=== PATIENT | female | born 1945 | race Caucasian/White ===

== ENCOUNTER → 2017-09-17 11:53 | Outpatient (CLI) | payer MEDICARE, SELFPAY ==
[2017-09-17 14:36] LABS: Hematocrit 41.2 % (37-47); Hemoglobin 14.1 g/dl (12.0-15.0); Mean Corp Hgb Conc 34.2 g/gl (32-36); Mean Corpuscular Hgb 33.2 pg (27.0-32.0); Mean Corpuscular Volume 96.9 fL (81-99); Mean Platelet Vol. 9.9 fl (6.2-12.0); Platelet Count 194 K/mm3 (150-450); RBC Distribution Width CV 12.5 % (11.6-14.6); RBC Distribution Width SD 43.2 fl (35.1-43.9); Red Blood Count 4.25 M/mm3 (4.2-5.4); White Blood Count 6.9 K/mm3 (4.4-11.0)
[2017-09-17 14:41] LABS: Scan Indicated on CBC? Y/N NO
[2017-09-17 14:46] LABS: Ferritin 12 ng/mL (8-252); Iron 65 ug/dL (50-170)
== END ==
PROVIDERS: Family Provider Family Medicine; PCP Family Medicine; Visit Provider Family Medicine
DX: D64.9 Anemia, unspecified (principal); E55.9 Vitamin D deficiency, unspecified
CPT/HCPCS: 36415; 82306; 82728; 83540; 85027

== ENCOUNTER → 2017-11-28 11:02 | Outpatient (CLI) | payer MEDICARE, SELFPAY | PROVIDERS: Family Provider Family Medicine; PCP Family Medicine; Visit Provider Family Medicine | DX: R30.0 Dysuria (principal) | CPT/HCPCS: 87077; 87086; 87088; 87186 ==

== ENCOUNTER → 2018-03-18 11:33 | Outpatient (CLI) | payer MEDICARE, SELFPAY ==
[2018-03-18 14:10] LABS: Hematocrit 43.4 % (37-47); Hemoglobin 14.8 g/dl (12.0-15.0); Mean Corp Hgb Conc 34.1 g/gl (32-36); Mean Corpuscular Hgb 33.3 pg (27.0-32.0); Mean Corpuscular Volume 97.7 fL (81-99); Mean Platelet Vol. 9.8 fl (6.2-12.0); Platelet Count 195 K/mm3 (150-450); RBC Distribution Width CV 12.7 % (11.6-14.6); RBC Distribution Width SD 44.8 fl (35.1-43.9); Red Blood Count 4.44 M/mm3 (4.2-5.4); White Blood Count 6.7 K/mm3 (4.4-11.0)
[2018-03-18 14:13] LABS: Scan Indicated on CBC? Y/N NO
[2018-03-18 14:35] LABS: ALB/GLOB Ratio 1.2 RATIO (0.9-2.4); AST(SGOT) 14 U/L (15-37); Alanine Aminotransfer ALT/SGPT 17 U/L (13-56); Albumin, Serum 4.1 g/dL (3.2-5.0); Alkaline Phosphatase 57 U/L (45-117); Anion Gap 10 (5-15); BUN 11 mg/dL (7-18); BUN/Creat Ratio 14.4 RATIO (10-20); Calcium,Total 9.1 mg/dL (8.5-10.1); Chloride 105 mmol/L (98-107); Creatinine, Serum 0.76 mg/dL (0.55-1.02); EST Glomerular Filtration Rate 79 mL/min (>60); Est Glom Filt Rate - Afr Amer 95 mL/min (>60); Globulin 3.4 g/dL (2.2-4.2); Glucose 69 mg/dL (74-106); Iron 147 ug/dL (50-170); Potassium 4.2 mmol/L (3.5-5.1); Protein, Total 7.5 g/dL (6.4-8.2); Sodium Level 144 mmol/L (136-145)
== END ==
PROVIDERS: Family Provider Family Medicine; PCP Family Medicine; Visit Provider Family Medicine
DX: D64.9 Anemia, unspecified (principal); K21.9 Gastro-esophageal reflux disease without esophagitis
CPT/HCPCS: 36415; 80053; 83540; 85027

== ENCOUNTER → 2018-05-20 11:27 | Outpatient (CLI) | payer MEDICARE, SELFPAY ==
--- NOTE | 2018-05-20 11:32 | RAD_ITS ---
STUDY: X-RAY - ABDOMEN/PELVIS REASON FOR EXAM: Female, 72 years old. Pain. TECHNIQUE: AP supine and upright views of the abdomen and pelvis. COMPARISON: CTA of the abdomen, December 06, 2016. FINDINGS: Normal visualized lung bases. There is a large retrocardiac hiatal hernia. There is a nonspecific bowel gas pattern with air and feces scattered throughout a nondistended colon. There is no small bowel dilatation or evidence of obstruction. There is no demonstrated free abdominal air. The visualized liver, spleen and kidneys are grossly normal in size and morphology. Cholecystectomy clips are seen in the right upper quadrant. Normal soft tissue structures. There is scoliosis and degenerative changes of the lumbar spine. There are bilateral artificial hips. RAD/Abd Inc Decub and/or Erect IMPRESSION: 1. Large hiatal hernia. 2. No other evidence of acute intra-abdominal process. 3. Degenerative changes and scoliosis lumbar spine. 4. Bilateral artificial hips. Electronically Signed: Omari Pemberton DO at 17:07 EDT Tel [phone], Service support ,
[2018-05-20 14:02] LABS: Erythrocyte Sedimentation Rate 4 mm/hr (0-30)
[2018-05-20 14:11] LABS: Absolute Lymphocyte Count 1.17 X10^3/ul (0.83-4.51); Absolute Neutrophil Count 4.6 X10^3/uL (2.0-7.7); Basophil# 0.01 X10^3/uL; Basophil% 0.2 % (0-1); Eosinophil# 0.16 X10^3/uL; Eosinophils% 2.5 % (0-5); Hematocrit 42.7 % (37-47); Hemoglobin 14.4 g/dl (12.0-15.0); Lymphocyte # 1.17 X10^3/ul (4.0); Lymphocyte % 18.3 % (19-41); Mean Corp Hgb Conc 33.7 g/gl (32-36); Mean Corpuscular Hgb 32.2 pg (27.0-32.0); Mean Corpuscular Volume 95.5 fL (81-99); Mean Platelet Vol. 9.8 fl (6.2-12.0); Monocyte% 6.3 % (0-10); Neutrophil # 4.64 X10^3/uL (2.7-7.7); Neutrophil % 72.5 % (47-70); Platelet Count 198 K/mm3 (150-450); Red Blood Count 4.47 M/mm3 (4.2-5.4); White Blood Count 6.4 K/mm3 (4.4-11.0)
[2018-05-20 14:20] LABS: POSITIVE COUNT NO; POSITIVE DIFFERENTIAL NO; POSITIVE MORPHOLOGY NO
[2018-05-20 14:41] LABS: ALB/GLOB Ratio 1.3 RATIO (0.9-2.4); AST(SGOT) 12 U/L (15-37); Alanine Aminotransfer ALT/SGPT 16 U/L (13-56); Albumin, Serum 4.1 g/dL (3.2-5.0); Alkaline Phosphatase 61 U/L (45-117); Anion Gap 10 (5-15); BUN 9 mg/dL (7-18); BUN/Creat Ratio 12.7 RATIO (10-20); Chloride 104 mmol/L (98-107); Creatinine, Serum 0.71 mg/dL (0.55-1.02); EST Glomerular Filtration Rate 86 mL/min (>60); Est Glom Filt Rate - Afr Amer 104 mL/min (>60); Globulin 3.2 g/dL (2.2-4.2); Glucose 83 mg/dL (74-106); Potassium 3.7 mmol/L (3.5-5.1); Protein, Total 7.3 g/dL (6.4-8.2); Sodium Level 141 mmol/L (136-145); Thyroid Stim Hormone (TSH) 0.83 uIU/mL (0.358-3.74)
== END ==
PROVIDERS: Family Provider Family Medicine; PCP Family Medicine; Referring Provider Family Medicine; Visit Provider Family Medicine
DX: R42 Dizziness and giddiness (principal); N39.0 Urinary tract infection, site not specified; R10.9 Unspecified abdominal pain; R53.83 Other fatigue
CPT/HCPCS: 36415; 74019; 80053; 84443; 85025; 85652; 87086

== ENCOUNTER → 2018-07-23 11:45 | Outpatient (CLI) | payer MEDICARE, SELFPAY ==
[2017-02-04 23:01] VITALS: BMI 37.0
[2018-07-23 18:28] LABS: Mucous, Urine 0 SEEN /hpf (<or=2+); Red Blood Cells-Urine 0 SEEN /hpf (0-5)
[2018-07-23 18:45] LABS: Color, Urine Yellow (Yellow); Glucose, Dipstick Normal (Normal); Ketone-Dipstick Negative (Negative); Leukocyte Esterase-Dipstick 100 /ul (Negative); Nitrite-Dipstick Negative (Negative); Occult Blood-Urine 10 /ul (Negative); Protein-Dipstick Negative (Negative); Specific Gravity, Urine 1.005 (1.002-1.030); Urine Bilirubin Dipstick Negative (Negative); Urine Clarity Clear (Clear); Urine Urobilinogen Normal (Normal)
[2018-07-23 18:55] LABS: White Blood Cells 0-5 SEEN /hpf (0-5)
[2018-07-23 18:56] LABS: Squamous Epithelial Cells - UA 0-5 SEEN /hpf (5-10)
[2018-07-23 18:57] LABS: Bacteria 3+ /hpf (None Seen)
== END ==
PROVIDERS: Family Provider Family Medicine; PCP Family Medicine; Referring Provider Nurse Practitioner Adult Health; Visit Provider Nurse Practitioner Adult Health
DX: N39.0 Urinary tract infection, site not specified (principal); R32 Unspecified urinary incontinence
CPT/HCPCS: 81001; 87077; 87086; 87088; 87186

== ENCOUNTER → 2018-10-03 13:25 | Outpatient (CLI) | payer MEDICARE, SELFPAY ==
[2018-10-03 10:32] VITALS: BMI 37.0
== END ==
PROVIDERS: Family Provider Family Medicine; PCP Family Medicine; Referring Provider Nurse Practitioner Women's Health; Visit Provider Nurse Practitioner Women's Health
DX: R35.0 Frequency of micturition (principal)
CPT/HCPCS: 87077; 87086; 87088; 87186

== ENCOUNTER 2018-10-23 11:26 | Observation (INO) | payer MEDICARE, SELFPAY ==
[2018-10-03 10:32] VITALS: BMI 37.0
[2018-10-23 11:36] VITALS: BP 136/72; PULSE 58; PULSE 61; RESP 17; TEMP 36.4; O2SAT 97; O2SAT 98; BMI 36.3
--- NOTE | 2018-10-23 11:46 | RAD_ITS ---
STUDY: X-RAY - RIGHT KNEE REASON FOR EXAM: Pain after feeling a pop this morning. TECHNIQUE: 3 view(s) of the knee. COMPARISON: None. FINDINGS: Normal visualized distal femur. Normal visualized proximal tibia and fibula. Normal proximal tibiofibular articulation. There is mild joint space narrowing of the medial femorotibial compartment. Normal lateral femorotibial compartment. There is mild joint space narrowing of the patellofemoral articulation. There is a small joint effusion. There is chondrocalcinosis in the menisci. RAD/Knee 3 Views IMPRESSION: Mild arthrosis of the medial femorotibial and patellofemoral compartments. Small joint effusion. Chondrocalcinosis. Electronically Signed: Edmond Villela MD at 12:31 EST Tel , Service support ,
[2018-10-23] MEDS: HYDROcodone Bitartrate/Apap 5/325 Tablet PO (14:15)
--- NOTE | 2018-10-23 14:55 | ED.DCSUM_ITS ---
- ER Visit Summary Date of Service: 10/23/18 Chief Complaint: Right knee injury History of Present Illness: The patient is a 73 F presents to the emergency department with right knee injury. Patient states over the past 2 weeks, she had a dull ache in the lateral aspect of her right knee she was going down her one stair in her garage. Her knee popped. Since then, he had pain trying to extend and feels like it is getting stuck. She had a difficult time bearing weight. She did not fall to the ground. She did not strike her head. Patient does have a history of DVT and is on Coumadin. She had bilateral hip replacements in the past. Physical Examination: Examination is relatively unremarkable. Patient does guard against full extension of the knee, but there is no evidence of patellar tendon disruption. There is no erythema or edema. Pulses are normal. She does have pain over the lateral aspect of the tibial plateau. Test Results: [] Emergency Department Course and Treatment: Clinically, the patient's mechanism does seem most consistent with a lateral meniscus injury. She was placed in a knee immobilizer which improved her pain. She was also given oral analgesics. X-rays showed no evidence of acute fracture. Patient is very concerned that she is going to be unable to care for herself at home. She was seen and evaluated by case management. She was seen by physical therapy and Occupational Therapy. The patient cannot maneuver safely with a walker. She is still having persistent pain and cannot get around. After evaluation, it was thought that she would best be served with observation with plan for skilled rehab placement. Patient was discussed with the hospitalist. Treatment Plan: [] Disposition: Observation Impression: 1. Right knee sprain with inability to ambulate This note was generated with [employer] ([employer]) Limitedation software. It may contain incorrect words, spelling, and punctuation that were not noted in review of the chart prior to signing ED Disposition - Plan for ED Patient: Referrals: True Vazquez MD [Primary Care Provider] -
--- NOTE | 2018-10-23 16:20 | ED.RN ---
PT ASSISTED TO [facility]. 2-3 STAFF ASSIST. PT C/O INCREASED WEAKNESS IN LEFT LEG AND FEELING LIKE IT IS GOING TO GO OUT. PT ASSISTED BACK INTO BED WITH THIS NURSE AND 2 PHYSICAL THERAPISTS
[2018-10-23 16:24] VITALS: BMI 36.3
[2018-10-23 16:45] VITALS: BP 140/74; PULSE 83; RESP 22; O2SAT 97
[2018-10-23] MEDS: Ondansetron 4 MG/2 ML Vial IV ×2 (16:46→22:25)
[2018-10-23] MEDS: Morphine 4 MG/ML Syringe IV (16:48)
[2018-10-23 16:50] LABS: Absolute Lymphocyte Count 1.62 X10^3/ul (0.83-4.51); Absolute Neutrophil Count 5.7 X10^3/uL (2.0-7.7); Basophil# 0.01 X10^3/uL; Basophil% 0.1 % (0-1); Eosinophil# 0.25 X10^3/uL; Eosinophils% 3.1 % (0-5); Hematocrit 40.6 % (37-47); Hemoglobin 13.2 g/dl (12.0-15.0); Lymphocyte # 1.62 X10^3/ul (4.0); Lymphocyte % 20.3 % (19-41); Mean Corp Hgb Conc 32.5 g/gl (32-36); Mean Corpuscular Hgb 30.8 pg (27.0-32.0); Mean Corpuscular Volume 94.6 fL (81-99); Mean Platelet Vol. 9.7 fl (6.2-12.0); Monocyte# 0.44 X10^3/uL; Monocyte% 5.5 % (0-10); Neutrophil # 5.67 X10^3/uL (2.7-7.7); Neutrophil % 70.9 % (47-70); Platelet Count 209 K/mm3 (150-450); RBC Distribution Width CV 13.1 % (11.6-14.6); Red Blood Count 4.29 M/mm3 (4.2-5.4)
--- NOTE | 2018-10-23 16:50 | NURSING ---
Estephania DANIELS INTRACTABLE KNEE PAIN, INABILITY TO AMBULATE
[2018-10-23 16:54] LABS: Anion Gap 9 (5-15); BUN 12 mg/dL (7-18); BUN/Creat Ratio 15.6 RATIO (10-20); Calcium,Total 8.7 mg/dL (8.5-10.1); Chloride 107 mmol/L (98-107); Creatinine, Serum 0.77 mg/dL (0.55-1.02); EST Glomerular Filtration Rate 78 mL/min (>60); Est Glom Filt Rate - Afr Amer 94 mL/min (>60); Estimated Creatinine Clearance 40.21 ml/min; Glucose 107 mg/dL (74-106); POSITIVE COUNT NO; POSITIVE DIFFERENTIAL NO; POSITIVE MORPHOLOGY NO; Potassium 3.5 mmol/L (3.5-5.1); Sodium Level 140 mmol/L (136-145)
[2018-10-23 17:06] LABS: International Normalized Ratio 1.9
--- NOTE | 2018-10-23 17:29 | CM.ED ---
Social Work Note Emergency Department Referred By: Dr. Vargas, Emergency Department Physician Date of Intervention: 10/23/2018 Reason for Referral: difficulty ambulating and pain issues, lives alone; assess for short term and pickle pumper needs Informant: patient herself, Emma Ivey Personal Status Living Arrangements: Lives alone, one floor condo, 2 steps into the home. Education/Literacy: Reports ability to read, write and to understand what is read. No comprehension issues noted. Employment: retired, received social security for self and from ; income is fixed. Insurance: [employer] Medicare PPO Family Dynamics/Relationships: Patient's Lenin has been at [facility] since July 2018 on palliative care hospice. 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 No reports of domestic violence in this relationship. Patient has an adult son in [place], an adult daughter Kiah who lives in [place], and a 19 year old grandson. Patient reports Kiah is disabled, does not drive and has limited ability to physically help patient. The grandson is able to check on patient once or twice a month only. Support System: Limited supports system at this time. Children are supportive but from patient reports are not viable options to help patient at home due to own functioning issues and geographical limitations. Patient has stepchildren also living out of state. No amisha community, friends or neighbors identified that could help patient at home either. Living Will/POAHC: Not addressed Medical History and Functioning: Reason for admission and Relevant Medical History: Patient reports normally to be a vibrant and active person overall. Reports to have some incontinence issues sometimes. Currently, per chart, patient has a right knee sprain with inability to ambulate. Per chart, patient does have a history of DVT and is on Coumadin; bilateral hip replacements in the past. ADLs prior to admission: Reports independent with all functioning prior to admission and injury this date. DME used: Has rollator walker and an older model standard walker. Primary Care Doctor: Dr. Vazquez. Programs/Agencies Involved: JFS: Reports [place]. Senior Care/Assisted Living/Fdc: is at [facility] and is active with [facility]. Medical Alert: Reports intent to get a medical alert for self; interested in [facility] Substance Abuse History and Current Pattern of Use Denies past or present use, abuse, or dependence issues with legal or illicit substances. Mental Health History and Current Cognitive Status Diagnoses: Denies any formal diagnosis of depression, anxiety or other other emotional health issues. Patient endorses stress over the last year and admits to likely having some caregiver burnout when topic broached by social sciences research scientist. Patient reports self to be optimistic in life, denies feeling depressed or having a negative outlook in life, though admits that could see how some caregivers could develop depression and anxiety. Current Stressors: Patient's mother, to whom patient was a caregiver 18 (almost a year ago). Patient's almost on al 4 times since July, placed at [facility] and has been on palliative/hospice care and recently diagnosed with shingles. Patient's daughter is on disability, does not drive, and not really able to pitch in and help patient out. SI or HI: Patient denies any past or present thoughts, plans, intent or attempts. Patient reports it would be the opposite that wants to live as still has too many people counting on the patient; no desire to hurt others. Reports to have a amisha in God and does not believe in taking own life. Treatment History: none reported Medications: None reported Current Cognitive/Mental Status: Alert, oriented to person, place, time, situation. Patient pleasant, friendly, realistic about current functional status. Patient held good eye contact, thought process logical, speech within normal limits. Patient mood appropriate to content, anxious, worried about how would function at home alone without better support and ability to move more independently. Patient tearful when talking about experience as a caregiver, loss of mother, and stress from life changes with . Patient?s Identified Concerns: Worried about going home alone, does not feel equipped to go home with addition of more DME and HHC at this point. Worried about getting to the bathroom in time, bathing self, getting meals, medications, and even getting into the home if discharged from the ED today. Patient expresses worry about being able to transfer on own. Patient reports to have limited income and not enough to hire help. Patient worried about finding out about this illness and does not want to cause more stress. Patient wants to get back to baseline, continue to live in own home and be able to help others; knows must care for own needs if wants to continue to help others in the future. Interventions: Emotional support and reflection offered today. Educated to process to enter SNF (need to get insurance approval), educated that if patient is admitted that no guarantee that insurance will agree to need for SNF level of care. Broached skilled HHC. Discussed meals on wheels, medical alert, and increasing DME at home if needed. patient interested in [facility] medical alert and would appreciate some information on this Collaboration with doctor, RN CM, nursing and therapy staff regarding patient's needs. Message left for Alicia at [facility] to call this conventional mortgage underwriter for referral, after finding out that patient not moving well for nursing or with therapy staff; not recommended to discharge home with current functional status. Handoff report to med/surg floor social sciences research scientist. Plan: Patient to be admitted observation due to pain and mobility issues. Plan to pursue referral to [facility] for short term SNF placement. -HASEEB Lewis, GROUNDSKEEPER PORTER
[2018-10-23 17:34] VITALS: BMI 37.6
[2018-10-23 17:36] VITALS: BP 169/79; PULSE 60; RESP 16; TEMP 37.1; O2SAT 97
--- NOTE | 2018-10-23 17:37 | HP.PCM_ITS ---
Problem List (1) Right knee pain Status: Acute Qualifiers: Chronicity: acute Qualified Code(s): M25.561 - Pain in right knee History of Present Illness Date of Admission: 10/23/18 Chief Complaint: Right knee pain The patient is a 73 year old F was coming in from another room and either turned or stepped on something and then felt a pop in her right knee and then had immediate pain. Patient pain anterior laterally medially and posteriorly. [place] that it was swollen. Had an x-ray that showed no fracture but did show small effusion. Patient just felt too weak to go home and patient being brought in under observation status to facilitate transfer to go to nursing facility. Patient has not had this happen before. Patient did not fall with this episode. [] Past Medical History Past Medical History (Chronic Problems): Chronic Problems (Last Reviewed 10/03/18 @ 10:14 by Savanna Hall) Incontinence (Chronic) Microcytic anemia (Chronic) Pre-syncope (Chronic) Morbid obesity (Chronic) lupus anticoagulant (Chronic) Arthritis (Chronic) DVT (deep venous thrombosis) (Chronic) Asthma (Chronic) Medical History: Medical History (Last Reviewed 10/23/18 @ 17:34 by Angelo Rosas DO) Incontinence (Chronic) R32 Anxiety F41.9 Colonoscopy planned Emphysema lung J43.9 Phlebitis and thrombophlebitis of superficial vessels of lower extremities, bilateral I80.03 Allergies latex Adverse Reaction (Verified 10/23/18 11:36) Rash Home Medications: Ambulatory Orders Medication Instructions Recorded Fluticasone/Salmeterol [Advair 1 puff INHALATION DAILY 08/04/13 100/50 Diskus] Acetaminophen [Tylenol] 1,000 mg PO BID PRN 03/09/15 Albuterol Inhaler [Ventolin Hfa] 1 puff INHALATION Q4H PRN PRN 12/31/16 Sucralfate [Carafate] 1 gm PO 1HR_ACHS #120 tab 02/05/17 buspirone 10 mg tablet 10 mg PO TID tab 08/27/18 Esomeprazole Mag Trihydrate 40 mg PO DAILY 10/23/18 [Nexium] Fluticasone Propionate 2 spray INHALATION DAILY 10/23/18 Oxybutynin Chloride [Oxybutynin 15 mg PO DAILY 10/23/18 Chloride ER] Warfarin Sodium 2 mg PO TU 10/23/18 Warfarin Sodium 3 mg PO SUMOWETHFRSA 10/23/18 Surgical History: Surgical History (Last Reviewed 10/23/18 @ 17:34 by Angelo Rosas DO) History of hip replacement Z96.649 bilateral Hx of cholecystectomy Z90.49 Surgical History: appendectomy, cholecystectomy, total hip arthroplasty, - - colonoscopy and egd in the past. Smoking Status: Never smoker Tobacco Use: Non-smoker - *Family History Paternal Family History: Family History (Last Reviewed 10/23/18 @ 17:34 by Angelo Rosas DO) Father Lung cancer History Items: Cancer Review of Systems Constitutional: Denies: Anorexia, Chills, Fever Eyes: Denies: Blurred vision, Double vision HEENT: Denies: Head Aches, Sinus Congestion, Sinus Drainage Cardiovascular: Denies: Chest Pain, Palpitations Respiratory: Denies: Cough, Shortness of breath at rest, Sputum production Gastrointestinal: Denies: Abdominal Pain, Constipation, Diarrhea Genitourinary: Denies: Dysuria Musculoskeletal: Reports: - - Right knee pain Skin: Denies: Rash, Wounds Psychiatric: Reports: Anxiety. Denies: Depression Hematologic/ Lymphatic: Reports: Hx of blood clot. Denies: Easy Bruising, Easy Bleeding Comment: A 10 point review of systems were negative except as mentioned in the history of present illness and the other review of systems. VTE Information - Inpt Only VTE Present on Admission: No VTE Mechan Device Prophylaxis: None VTE Pharm Prophylaxis ordered?: Yes Patient Problems: Active and Suspected Problems (Last Reviewed 10/03/18 @ 10:14 by Savanna Rehman on) Right knee pain (Acute) - Physical Exam General: Alert, Cooperative, No apparent distress HEENT: Atraumatic, Normocephalic Oral: Moist Mucosa, No Gingival or Mucosal Lesions/ Ulcerations Neck: No Nodes, Thyroid Normal Size and Texture Lungs: Clear to auscultation, Normal air movement, No rhonchi, No wheeze Cardiovascular: Regular rate, Regular Rhythm, Normal S1, Normal S2, No murmurs Abdomen: Bowel Sounds Present, Soft, Non Tender, Non-Distended, No Hepato- splenomegaly Extremities: No edema, No Calf Tenderness Skin: No rashes, No breakdown Musculoskeletal: - - Right knee: Small appreciable knee effusion lateral medially but also posteriorly. A limited due to body habitus. Negative drawer sign. No warmth nor swelling around the right knee. Psych/Mental Status: Normal Affect, Appropriate Vital Signs Temp Pulse Resp BP Pulse Ox 36.4 C L 83 22 H 140/74 H 97 10/23/18 11:36 10/23/18 16:45 10/23/18 16:45 10/23/18 16:45 10/23/18 16:45 Oxygen Delivery Method Room Air Weight: 92.986 kg Body Mass Index (BMI) 36.3 Laboratory Tests Past 24 Hrs 10/23/18 10/23/18 10/23/18 16:30 16:30 16:30 WBC 8.0 RBC 4.29 Hgb 13.2 Hct 40.6 MCV 94.6 MCH 30.8 MCHC 32.5 RDW 13.1 RDW Differential 45.0 H Plt Count 209 MPV 9.7 Immature Gran % (Auto) 0.100 Neut % (Auto) 70.9 H Lymph % (Auto) 20.3 [place] % (Auto) 5.5 Eos % (Auto) 3.1 Baso % (Auto) 0.1 Absolute Neuts (auto) 5.7 Absolute Lymphs (auto) 1.62 Total Counted Not Reportable PT 22.0 H INR 1.9 Sodium 140 Potassium 3.5 Chloride 107 Carbon Dioxide 24.0 Anion Gap 9 BUN 12 Creatinine 0.77 Estim Creat Clear Calc 40.21 Est GFR (MDRD) Af Amer 94 Est GFR (MDRD) Non-Af 78 BUN/Creatinine Ratio 15.6 Glucose 107 H Calcium 8.7 Assessment/Plan All Active Problems (Last Reviewed 10/03/18 @ 10:14 by Savanna Hall) Right knee pain (Acute) Pessary maintenance (Acute) Cystocele and rectocele with incomplete uterovaginal prolapse (Acute) Atypical chest pain (Acute) Abdominal pain (Acute) UTI (urinary tract infection) (Acute) 1. Right knee pain: I do not suspect that patient has any ACL tear. May be a meniscal injury or just after trauma that led to an effusion of her right knee. I did offer MRI the patient stated due to herniated disc in her back that she would not be able to tolerate it. We then am not concerned about an occult fracture or any significant ligament injury I do not feel is necessary at this time and that it could be deferred to a later point if patient does not have any. We will continue with pain medications but no NSAIDs given her concomitant use of Coumadin. Physical therapy to continue to see and case management to facilitate the disposition to a [facility] facility. 2. Lupus anticoagulants/history of VT E: Continue with Coumadin. 3. DVT prophylaxis patient is already on Coumadin. Code Visit OBSV E&M: 74122 Initial observation care L2
[2018-10-23] MEDS: Morphine 2 MG/ML Syringe IV (19:39)
[2018-10-23] MEDS: Budesonide Respules 0.5 MG/2 ML AMPUL.NEB. INHALATION (19:47)
[2018-10-23] MEDS: Acetaminophen 325 MG Tablet 650 MG PO (19:49)
[2018-10-23 19:50] VITALS: PULSE 56; RESP 18; O2SAT 98
[2018-10-23] MEDS: Albuterol 2.5 MG/3 ML VIAL.NEB. INHALATION (19:50)
[2018-10-23] MEDS: oxyCODONE 5 MG Tablet PO (20:52)
[2018-10-23] MEDS: Sucralfate 1 GM Tablet PO (21:05)
[2018-10-23] MEDS: busPIRone 5 MG Tablet 10 MG PO (21:06)
[2018-10-23] MEDS: 0.9% NaCl Peripheral Flush Adult/Peds IV (22:25)
[2018-10-24] MEDS: oxyCODONE 5 MG Tablet PO ×4 (01:50→18:56)
[2018-10-24 02:00] VITALS: BP 144/80; PULSE 62; RESP 18; TEMP 36.4; O2SAT 99
[2018-10-24] MEDS: Pantoprazole Sodium 40 MG Tablet PO (06:03)
[2018-10-24 06:12] LABS: Prothrombin Time (Protime)PT. 22.2 SECONDS (11.7-14.9)
[2018-10-24] MEDS: Sucralfate 1 GM Tablet PO ×3 (06:31→16:11)
[2018-10-24] MEDS: busPIRone 5 MG Tablet 10 MG PO ×2 (06:32→14:29)
[2018-10-24] MEDS: Ondansetron 4 MG/2 ML Vial IV ×2 (07:43→18:55)
[2018-10-24] MEDS: 0.9% NaCl Peripheral Flush Adult/Peds IV ×2 (07:45→14:10)
[2018-10-24 08:00] VITALS: BP 138/61; PULSE 62; RESP 16; TEMP 36.4; O2SAT 95
--- NOTE | 2018-10-24 10:06 | CASEMGMT ---
Social Work MS3 Follow up to intervention with patient in the ED on 10-23-18 today regarding discharge planning. Received call back from Alicia at [facility] reporting there are female beds available to consider a referral. Faxed referral information, so that precert can be started, to confirmed fax at [phone]. Called Alicia, left message that information faxed and that patient likely ready for discharge as soon as precert can be attained. Also asked that Alicia, Sandra, or Red be the the individuals to communicate to patient's of patient's injury and possible need for SNF. Plan: Awaiting response from [facility] as well a precert for SNF level of care. -HASEEB Lewis, MOLECULAR BIOLOGY DIRECTOR
--- NOTE | 2018-10-24 10:46 | CASEMGMT ---
Addendum entered by Lorena Pelaez 10/24/18 13:32: JOHN faxed updated PT/OT to [facility] Original Note: Social Work Note SW received call from Alicia at [facility] stating she is able to accept pt and has submitted for pre-cert. Alicia states that she or her staff hasn't told pt's yet as they are not certain if pt will be approved for SNF. Plan: [facility] pending pre-cert Lorena Pelaez COMPOSITION FLOOR LAYER, HEALTH SOCIAL WORK PROFESSOR
--- NOTE | 2018-10-24 10:47 | CASEMGMT ---
RN DAJA NOTE: To room to talk with. Intro self and role of RN DAJA. Reviewed CERDA form, questions answered, and form signed by pt. Copy of form made and placed on pt's chart. Original given to pt. Pt also given [facility] Are you a hospital inpatient or outpatient information sheets. Selin WILKINSON RN CM
[2018-10-24] MEDS: Tolterodine Tartrate 4 MG CAP.SA PO (11:54)
[2018-10-24] MEDS: Fluticasone 0.05% 1 SPRAY NASAL.SRY 2 SPRAY NASAL (11:59)
[2018-10-24 14:00] VITALS: BP 138/56; PULSE 58; RESP 16; TEMP 36.4; O2SAT 97
[2018-10-24] MEDS: proCHLORPERazine 10 MG/2 ML Vial 5 MG IV (14:10)
--- NOTE | 2018-10-24 15:02 | PCM.PROGNOTE ---
Patient Problems: Active and Suspected Problems (Last Reviewed 10/23/18 @ 17:34 by Angelo Rosas DO) Right knee pain (Acute) Subjective: ongoing right LE pain. R hip pain, pain along lateral aspect of right proximal leg, and R knee pain. Not able to weight bear. Has previously seen Dr. Lin for BL total hips. - Physical Exam General: Alert, Oriented x3, Cooperative HEENT: Atraumatic, PERRLA, EOMI, Normocephalic Neck: Supple, No JVD, Negative Carotid Bruits Lungs: Clear to auscultation, Normal air movement Cardiovascular: Regular rate, No murmurs Abdomen: Bowel Sounds Present, Soft, Non Tender Extremities: No edema, Capillary Refill Less than 3 Seconds Skin: No rashes, No breakdown Musculoskeletal: - - tenderness along IT band, negative anterior posterior drawer test, negative ballotment, negative tender to varus maneuver but no laxity. tender lateral aspect, no tenderness around the patella. Neurological: Cranial nerves II-XII grossly intact Psych/Mental Status: Normal Affect, Appropriate Vital Signs Temp Pulse Resp BP Pulse Ox 97.5 F L 58 L 16 138/56 H 97 10/24/18 14:00 10/24/18 14:00 10/24/18 14:00 10/24/18 14:00 10/24/18 14:00 Oxygen Delivery Method Room Air Weight: 212 lb 8.41 oz Body Mass Index (BMI) 37.6 Intake and Output for Last 24 Hours 10/22/18 10/23/18 10/24/18 23:59 23:59 23:59 Intake Total 2275 / 2275 Output Total 700 / 700 1000 / 1000 Balance -700 / -700 1275 / 1275 Laboratory Tests Past 24 Hrs 10/23/18 10/23/18 10/23/18 16:30 16:30 16:30 WBC 8.0 RBC 4.29 Hgb 13.2 Hct 40.6 MCV 94.6 MCH 30.8 MCHC 32.5 RDW 13.1 RDW Differential 45.0 H Plt Count 209 MPV 9.7 Immature Gran % (Auto) 0.100 Neut % (Auto) 70.9 H Lymph % (Auto) 20.3 [place] % (Auto) 5.5 Eos % (Auto) 3.1 Baso % (Auto) 0.1 Absolute Neuts (auto) 5.7 Absolute Lymphs (auto) 1.62 Total Counted Not Reportable PT 22.0 H INR 1.9 Sodium 140 Potassium 3.5 Chloride 107 Carbon Dioxide 24.0 Anion Gap 9 BUN 12 Creatinine 0.77 Estim Creat Clear Calc 40.21 Est GFR (MDRD) Af Amer 94 Est GFR (MDRD) Non-Af 78 BUN/Creatinine Ratio 15.6 Glucose 107 H Calcium 8.7 10/24/18 05:45 WBC RBC Hgb Hct MCV MCH MCHC RDW RDW Differential Plt Count MPV Immature Gran % (Auto) Neut % (Auto) Lymph % (Auto) [place] % (Auto) Eos % (Auto) Baso % (Auto) Absolute Neuts (auto) Absolute Lymphs (auto) Total Counted PT 22.2 H INR 2.0 Sodium Potassium Chloride Carbon Dioxide Anion Gap BUN Creatinine Estim Creat Clear Calc Est GFR (MDRD) Af Amer Est GFR (MDRD) Non-Af BUN/Creatinine Ratio Glucose Calcium Medical Necessity - Tobacco Use Smoking Status: Never smoker Tobacco Use: Non-smoker Assessment/Plan All Active Problems (Last Reviewed 10/23/18 @ 17:34 by Angelo Rosas DO) Right knee pain (Acute) Pessary maintenance (Acute) Cystocele and rectocele with incomplete uterovaginal prolapse (Acute) Atypical chest pain (Acute) Abdominal pain (Acute) UTI (urinary tract infection) (Acute) 1. Fall with R knee pain - small effusion - provide RICE therapy. PTOT. Unable to weight bear currently. Agreeable to placement. F/u with her ortho as o/p --> pt of Dr. Ozuna group. Imaging negative. 2. hx lupus anticoagulant - warfarin. 3. anxiety - buspar 4. Asthma - stable DVT ppx: warfarin DC Planning: SNF This patient was seen by Wesley Gomez PA-C under the supervision of Doctor Serrano.
--- NOTE | 2018-10-24 15:41 | PCM.EXTCARCO ---
- Diet 10/23/18 17:36 Diet: Regular Diet Food consistency:: Regular Liquid Consistency:: Regular/Thin Is pt able to select menu?: Yes - Routine Orders/Code Status Suppository Type: Dulcolax 10mg Suppository Frequency: Daily PRN Routine Lab Work: INR - 1 week - Therapies Physical Therapy: Eval and Treat Occupational Therapy: Eval and Treat - Problem/Diagnosis (1) Right knee pain Status: Acute Current Visit: Yes (2) Morbid obesity Status: Chronic Current Visit: No (3) lupus anticoagulant Status: Chronic Current Visit: No (4) Arthritis Status: Chronic Current Visit: No (5) Abdominal pain Status: Acute Current Visit: No (6) Asthma Status: Chronic Current Visit: No - Allergies/Procedures Done in Hospital Allergies/Adverse Reactions: Allergies latex Adverse Reaction (Verified 10/23/18 11:36) Rash Procedures: None - Type of Care/Length of Stay Estimated LOS: Convalescent Care Less Than 30 days Type of Care Needed: Skilled Rehab Potential: Fair Prognosis: Fair - Additional Orders/Day of Discharge Day of Discharge: 10/24/18 - Follow Up Care Primary Care Physician: True Vazquez MD [Primary Care Provider] - Please follow up with your Primary Care Physician in: 2 weeks Please Follow Up With: Robbie Roberts MD When: 1-2 weeks
--- NOTE | 2018-10-24 15:43 | PCM.DC.SUM ---
<Wesley Gomez - Last Filed: 10/24/18 15:43> Discharge Date and Diagnosis - Problem List Patient Problems: Active and Suspected Problems (Last Reviewed 10/23/18 @ 17:34 by Angelo Rosas DO) Right knee pain (Acute) Date of Admission: 10/23/18 Date of Discharge: 10/24/18 - Primary Discharge Diagnosis Active and Suspected Problems (Last Reviewed 10/23/18 @ 17:34 by Angelo Rosas DO) Right knee pain (Acute) 2/2 fall osteoarthritis Hx DVT Hx Lupus anticoagulant Hx Obesity Hx asthma - Secondary Discharge Diagnosis Chronic Problems (Last Reviewed 10/23/18 @ 17:34 by Angelo Rosas DO) Incontinence (Chronic) Microcytic anemia (Chronic) Pre-syncope (Chronic) Morbid obesity (Chronic) lupus anticoagulant (Chronic) Arthritis (Chronic) DVT (deep venous thrombosis) (Chronic) Asthma (Chronic) Hospital Course and Treatment Imaging Results: RAD/Knee 3 Views IMPRESSION: Mild arthrosis of the medial femorotibial and patellofemoral compartments. Small joint effusion. Chondrocalcinosis. Operations: None Procedures: None Summary of Care Provided: Hospital Course: The patient is a 73 year old F with past medical history as above who presented to the emergency room with complaints of right knee pain. The pain began after she fell at home. Her right knee gave out and she fell backwards and injured it during the fall, feeling something pop. She denies striking her knee. She has a significant history for arthritis and has had both of her hips repaired by Dr. Alexis in the past. In the emergency room she had a knee x-ray that showed chondrocalcinosis, a small effusion, and arthrosis. She was unable to weight-bear. She felt that she had been increasingly having issues with walking and being unsteady at home. She was admitted to the medical surgical unit with plans for transition to detention. She was seen by physical therapy and occupational therapy. A brace was placed. Rice therapy was recommended. Unfortunately she cannot have NSAIDs. She was accepted at detention and was discharged there in stable condition. Acetaminophen and oxycodone were advised for pain. She should follow-up with her orthopedic group, Dr. Chandra has retired so I advised her to follow-up with Dr. Roberts as an outpatient for further care. This patient was seen by Wesley Gomez PA-C under the supervision of Doctor Zach. [] Patient Problems: Active and Suspected Problems (Last Reviewed 10/23/18 @ 17:34 by Angelo Rosas DO) Right knee pain (Acute) Objective: Physical exam as per daily progress note. - Physical Exam Vital Signs Temp Pulse Resp BP Pulse Ox 97.5 F L 58 L 16 138/56 H 97 10/24/18 14:00 10/24/18 14:00 10/24/18 14:00 10/24/18 14:00 10/24/18 14:00 Oxygen Delivery Method Room Air Weight: 212 lb 8.41 oz Body Mass Index (BMI) 37.6 Intake and Output for Last 24 Hours 10/22/18 10/23/18 10/24/18 23:59 23:59 23:59 Intake Total 2275 / 2275 Output Total 700 / 700 1000 / 1000 Balance -700 / -700 1275 / 1275 Laboratory Tests Past 24 Hrs 10/23/18 10/23/18 10/23/18 16:30 16:30 16:30 WBC 8.0 RBC 4.29 Hgb 13.2 Hct 40.6 MCV 94.6 MCH 30.8 MCHC 32.5 RDW 13.1 RDW Differential 45.0 H Plt Count 209 MPV 9.7 Immature Gran % (Auto) 0.100 Neut % (Auto) 70.9 H Lymph % (Auto) 20.3 [place] % (Auto) 5.5 Eos % (Auto) 3.1 Baso % (Auto) 0.1 Absolute Neuts (auto) 5.7 Absolute Lymphs (auto) 1.62 Total Counted Not Reportable PT 22.0 H INR 1.9 Sodium 140 Potassium 3.5 Chloride 107 Carbon Dioxide 24.0 Anion Gap 9 BUN 12 Creatinine 0.77 Estim Creat Clear Calc 40.21 Est GFR (MDRD) Af Amer 94 Est GFR (MDRD) Non-Af 78 BUN/Creatinine Ratio 15.6 Glucose 107 H Calcium 8.7 10/24/18 05:45 WBC RBC Hgb Hct MCV MCH MCHC RDW RDW Differential Plt Count MPV Immature Gran % (Auto) Neut % (Auto) Lymph % (Auto) [place] % (Auto) Eos % (Auto) Baso % (Auto) Absolute Neuts (auto) Absolute Lymphs (auto) Total Counted PT 22.2 H INR 2.0 Sodium Potassium Chloride Carbon Dioxide Anion Gap BUN Creatinine Estim Creat Clear Calc Est GFR (MDRD) Af Amer Est GFR (MDRD) Non-Af BUN/Creatinine Ratio Glucose Calcium Discharge Diet: No Restrictions Discharge Activity: Return to Normal Activity Home Medications: Medications to take at Discharge Fluticasone/Salmeterol [Advair 100/50 Diskus] 1 puff INHALATION DAILY 08/04/13 Acetaminophen [Tylenol] 1,000 mg PO BID PRN 03/09/15 Albuterol Inhaler [Ventolin Hfa] 1 puff INHALATION Q4H PRN PRN 12/31/16 Sucralfate [Carafate] 1 gm PO 1HR_ACHS #120 tab 02/05/17 buspirone 10 mg tablet 10 mg PO TID tab 08/27/18 Esomeprazole Mag Trihydrate [Nexium] 40 mg PO DAILY 10/23/18 Fluticasone Propionate 2 spray INHALATION DAILY 10/23/18 Oxybutynin Chloride [Oxybutynin Chloride ER] 15 mg PO DAILY 10/23/18 Warfarin Sodium 2 mg PO TU 10/23/18 Warfarin Sodium 3 mg PO SUMOWETHFRSA 10/23/18 Oxycodone [Oxyir] 5 mg PO Q4H PRN PRN 3 Days #18 tablet 10/24/18 Following Prescrptions Were Given to Patient: Oxycodone [Oxyir] 5 mg PO Q4H PRN PRN 3 Days #18 tablet PRN Reason: Mod-Severe Pain (4-10/10) Primary Care Physician: True Vazquez MD [Primary Care Provider] - Please follow up with your Primary Care Physician in: 2 weeks Please Follow Up With: Robbie Roberts MD When: 1-2 weeks Disposition: Longterm facility Minutes spent on discharge:: 35 Patient Condition:: Stable Medical Necessity - Tobacco Use Smoking Status: Never smoker Tobacco Use: Non-smoker Meaningful Use Info Meaningful Use Diagnoses (Choose all that apply): None applicable <Jack Serrano - Last Filed: 10/24/18 16:34> Discharge Date and Diagnosis - Primary Discharge Diagnosis Active and Suspected Problems (Last Reviewed 10/23/18 @ 17:34 by Angelo Rosas DO) Right knee pain (Acute) - Secondary Discharge Diagnosis Chronic Problems (Last Reviewed 10/23/18 @ 17:34 by Angelo Rosas DO) Incontinence (Chronic) Microcytic anemia (Chronic) Pre-syncope (Chronic) Morbid obesity (Chronic) lupus anticoagulant (Chronic) Arthritis (Chronic) DVT (deep venous thrombosis) (Chronic) Asthma (Chronic) Hospital Course and Treatment Summary of Care Provided: The patient is a 73 year old F [] - Physical Exam Vital Signs Temp Pulse Resp BP Pulse Ox 97.5 F L 58 L 16 138/56 H 97 10/24/18 14:00 10/24/18 14:00 10/24/18 14:00 10/24/18 14:00 10/24/18 14:00 Oxygen Delivery Method Room Air Weight: 212 lb 8.41 oz Body Mass Index (BMI) 37.6 Intake and Output for Last 24 Hours 10/22/18 10/23/18 10/24/18 23:59 23:59 23:59 Intake Total 2275 / 2275 Output Total 700 / 700 1000 / 1000 Balance -700 / -700 1275 / 1275 Laboratory Tests Past 24 Hrs 10/23/18 10/23/18 10/23/18 16:30 16:30 16:30 WBC 8.0 RBC 4.29 Hgb 13.2 Hct 40.6 MCV 94.6 MCH 30.8 MCHC 32.5 RDW 13.1 RDW Differential 45.0 H Plt Count 209 MPV 9.7 Immature Gran % (Auto) 0.100 Neut % (Auto) 70.9 H Lymph % (Auto) 20.3 [place] % (Auto) 5.5 Eos % (Auto) 3.1 Baso % (Auto) 0.1 Absolute Neuts (auto) 5.7 Absolute Lymphs (auto) 1.62 Total Counted Not Reportable PT 22.0 H INR 1.9 Sodium 140 Potassium 3.5 Chloride 107 Carbon Dioxide 24.0 Anion Gap 9 BUN 12 Creatinine 0.77 Estim Creat Clear Calc 40.21 Est GFR (MDRD) Af Amer 94 Est GFR (MDRD) Non-Af 78 BUN/Creatinine Ratio 15.6 Glucose 107 H Calcium 8.7 10/24/18 05:45 WBC RBC Hgb Hct MCV MCH MCHC RDW RDW Differential Plt Count MPV Immature Gran % (Auto) Neut % (Auto) Lymph % (Auto) [place] % (Auto) Eos % (Auto) Baso % (Auto) Absolute Neuts (auto) Absolute Lymphs (auto) Total Counted PT 22.2 H INR 2.0 Sodium Potassium Chloride Carbon Dioxide Anion Gap BUN Creatinine Estim Creat Clear Calc Est GFR (MDRD) Af Amer Est GFR (MDRD) Non-Af BUN/Creatinine Ratio Glucose Calcium Code Visit Addendum: Dr. Serrano I personally examined the patient and reviewed the chart. I agree with the above. 73-year-old female who has had previous hip replacements presenting with right knee pain. She states that she was walking from one room to another when she had a turned or stepped on something and felt a pop in her right knee. She states that the knee felt swollen and was generally painful and she was unable to put weight on it. An x-ray in the ER which was negative for fracture but did show a small effusion. She was placed in a brace and has been doing okay however she is unable to undergo an MRI because of her back pain and she feels like she will not be able to lay down flat for prolonged period of time. At the moment will plan for her to go to detention facility for rehab and in the process can see orthopedics as an outpatient for evaluation. OBSV E&M: 18027 Observation care discharge
--- NOTE | 2018-10-24 15:47 | DS.PCM_ITS ---
<Wesley Gomez - Last Filed: 10/24/18 15:43> Discharge Date and Diagnosis - Problem List Patient Problems: Active and Suspected Problems (Last Reviewed 10/23/18 @ 17:34 by Angelo Rosas DO) Right knee pain (Acute) Date of Admission: 10/23/18 Date of Discharge: 10/24/18 - Primary Discharge Diagnosis Active and Suspected Problems (Last Reviewed 10/23/18 @ 17:34 by Angelo Rosas DO) Right knee pain (Acute) 2/2 fall osteoarthritis Hx DVT Hx Lupus anticoagulant Hx Obesity Hx asthma - Secondary Discharge Diagnosis Chronic Problems (Last Reviewed 10/23/18 @ 17:34 by Angelo Rosas DO) Incontinence (Chronic) Microcytic anemia (Chronic) Pre-syncope (Chronic) Morbid obesity (Chronic) lupus anticoagulant (Chronic) Arthritis (Chronic) DVT (deep venous thrombosis) (Chronic) Asthma (Chronic) Hospital Course and Treatment Imaging Results: RAD/Knee 3 Views IMPRESSION: Mild arthrosis of the medial femorotibial and patellofemoral compartments. Small joint effusion. Chondrocalcinosis. Operations: None Procedures: None Summary of Care Provided: Hospital Course: The patient is a 73 year old F with past medical history as above who presented to the emergency room with complaints of right knee pain. The pain began after she fell at home. Her right knee gave out and she fell backwards and injured it during the fall, feeling something pop. She denies striking her knee. She has a significant history for arthritis and has had both of her hips repaired by Dr. Alexis in the past. In the emergency room she had a knee x-ray that showed chondrocalcinosis, a small effusion, and arthrosis. She was unable to weight- bear. She felt that she had been increasingly having issues with walking and being unsteady at home. She was admitted to the medical surgical unit with [facility]. She was seen by physical therapy and occupational therapy. A brace was placed. Rice therapy was recommended. Unfortunately she cannot have NSAIDs. [facility] and was discharged there in stable condition. Acetaminophen and oxycodone were advised for pain. She should follow-up with her orthopedic group, Dr. Chandra has retired so I advised her to follow-up with Dr. Roberts as an outpatient for further care. This patient was seen by Wesley Gomez PA-C under the supervision of Doctor Zach. [] Patient Problems: Active and Suspected Problems (Last Reviewed 10/23/18 @ 17:34 by Angelo Rosas DO) Right knee pain (Acute) Objective: Physical exam as per daily progress note. - Physical Exam Vital Signs Temp Pulse Resp BP Pulse Ox 97.5 F L 58 L 16 138/56 H 97 10/24/18 14:00 10/24/18 14:00 10/24/18 14:00 10/24/18 14:00 10/24/18 14:00 Oxygen Delivery Method Room Air Weight: 212 lb 8.41 oz Body Mass Index (BMI) 37.6 Intake and Output for Last 24 Hours 10/22/18 10/23/18 10/24/18 23:59 23:59 23:59 Intake Total 2275 / 2275 Output Total 700 / 700 1000 / 1000 Balance -700 / -700 1275 / 1275 Laboratory Tests Past 24 Hrs 10/23/18 10/23/18 10/23/18 16:30 16:30 16:30 WBC 8.0 RBC 4.29 Hgb 13.2 Hct 40.6 MCV 94.6 MCH 30.8 MCHC 32.5 RDW 13.1 RDW Differential 45.0 H Plt Count 209 MPV 9.7 Immature Gran % (Auto) 0.100 Neut % (Auto) 70.9 H Lymph % (Auto) 20.3 [place] % (Auto) 5.5 Eos % (Auto) 3.1 Baso % (Auto) 0.1 Absolute Neuts (auto) 5.7 Absolute Lymphs (auto) 1.62 Total Counted Not Reportable PT 22.0 H INR 1.9 Sodium 140 Potassium 3.5 Chloride 107 Carbon Dioxide 24.0 Anion Gap 9 BUN 12 Creatinine 0.77 Estim Creat Clear Calc 40.21 Est GFR (MDRD) Af Amer 94 Est GFR (MDRD) Non-Af 78 BUN/Creatinine Ratio 15.6 Glucose 107 H Calcium 8.7 10/24/18 05:45 WBC RBC Hgb Hct MCV MCH MCHC RDW RDW Differential Plt Count MPV Immature Gran % (Auto) Neut % (Auto) Lymph % (Auto) [place] % (Auto) Eos % (Auto) Baso % (Auto) Absolute Neuts (auto) Absolute Lymphs (auto) Total Counted PT 22.2 H INR 2.0 Sodium Potassium Chloride Carbon Dioxide Anion Gap BUN Creatinine Estim Creat Clear Calc Est GFR (MDRD) Af Amer Est GFR (MDRD) Non-Af BUN/Creatinine Ratio Glucose Calcium Discharge Diet: No Restrictions Discharge Activity: Return to Normal Activity Home Medications: Medications to take at Discharge Fluticasone/Salmeterol [Advair 100/50 Diskus] 1 puff INHALATION DAILY 08/04/13 Acetaminophen [Tylenol] 1,000 mg PO BID PRN 03/09/15 Albuterol Inhaler [Ventolin Hfa] 1 puff INHALATION Q4H PRN PRN 12/31/16 Sucralfate [Carafate] 1 gm PO 1HR_ACHS #120 tab 02/05/17 buspirone 10 mg tablet 10 mg PO TID tab 08/27/18 Esomeprazole Mag Trihydrate [Nexium] 40 mg PO DAILY 10/23/18 Fluticasone Propionate 2 spray INHALATION DAILY 10/23/18 Oxybutynin Chloride [Oxybutynin Chloride ER] 15 mg PO DAILY 10/23/18 Warfarin Sodium 2 mg PO TU 10/23/18 Warfarin Sodium 3 mg PO SUMOWETHFRSA 10/23/18 Oxycodone [Oxyir] 5 mg PO Q4H PRN PRN 3 Days #18 tablet 10/24/18 Following Prescrptions Were Given to Patient: Oxycodone [Oxyir] 5 mg PO Q4H PRN PRN 3 Days #18 tablet PRN Reason: Mod-Severe Pain (4-10/10) Primary Care Physician: True Vazquez MD [Primary Care Provider] - Please follow up with your Primary Care Physician in: 2 weeks Please Follow Up With: Robbie Roberts MD When: 1-2 weeks Disposition: [facility] facility Minutes spent on discharge:: 35 Patient Condition:: Stable Medical Necessity - Tobacco Use Smoking Status: Never smoker Tobacco Use: Non-smoker Meaningful Use Info Meaningful Use Diagnoses (Choose all that apply): None applicable <Jack Serrano - Last Filed: 10/24/18 16:34> Discharge Date and Diagnosis - Primary Discharge Diagnosis Active and Suspected Problems (Last Reviewed 10/23/18 @ 17:34 by Angelo Rosas DO) Right knee pain (Acute) - Secondary Discharge Diagnosis Chronic Problems (Last Reviewed 10/23/18 @ 17:34 by Angelo Rosas DO) Incontinence (Chronic) Microcytic anemia (Chronic) Pre-syncope (Chronic) Morbid obesity (Chronic) lupus anticoagulant (Chronic) Arthritis (Chronic) DVT (deep venous thrombosis) (Chronic) Asthma (Chronic) Hospital Course and Treatment Summary of Care Provided: The patient is a 73 year old F [] - Physical Exam Vital Signs Temp Pulse Resp BP Pulse Ox 97.5 F L 58 L 16 138/56 H 97 10/24/18 14:00 10/24/18 14:00 10/24/18 14:00 10/24/18 14:00 10/24/18 14:00 Oxygen Delivery Method Room Air Weight: 212 lb 8.41 oz Body Mass Index (BMI) 37.6 Intake and Output for Last 24 Hours 10/22/18 10/23/18 10/24/18 23:59 23:59 23:59 Intake Total 2275 / 2275 Output Total 700 / 700 1000 / 1000 Balance -700 / -700 1275 / 1275 Laboratory Tests Past 24 Hrs 10/23/18 10/23/18 10/23/18 16:30 16:30 16:30 WBC 8.0 RBC 4.29 Hgb 13.2 Hct 40.6 MCV 94.6 MCH 30.8 MCHC 32.5 RDW 13.1 RDW Differential 45.0 H Plt Count 209 MPV 9.7 Immature Gran % (Auto) 0.100 Neut % (Auto) 70.9 H Lymph % (Auto) 20.3 [place] % (Auto) 5.5 Eos % (Auto) 3.1 Baso % (Auto) 0.1 Absolute Neuts (auto) 5.7 Absolute Lymphs (auto) 1.62 Total Counted Not Reportable PT 22.0 H INR 1.9 Sodium 140 Potassium 3.5 Chloride 107 Carbon Dioxide 24.0 Anion Gap 9 BUN 12 Creatinine 0.77 Estim Creat Clear Calc 40.21 Est GFR (MDRD) Af Amer 94 Est GFR (MDRD) Non-Af 78 BUN/Creatinine Ratio 15.6 Glucose 107 H Calcium 8.7 10/24/18 05:45 WBC RBC Hgb Hct MCV MCH MCHC RDW RDW Differential Plt Count MPV Immature Gran % (Auto) Neut % (Auto) Lymph % (Auto) [place] % (Auto) Eos % (Auto) Baso % (Auto) Absolute Neuts (auto) Absolute Lymphs (auto) Total Counted PT 22.2 H INR 2.0 Sodium Potassium Chloride Carbon Dioxide Anion Gap BUN Creatinine Estim Creat Clear Calc Est GFR (MDRD) Af Amer Est GFR (MDRD) Non-Af BUN/Creatinine Ratio Glucose Calcium Code Visit Addendum: Dr. Serrano I personally examined the patient and reviewed the chart. I agree with the above. 73-year-old female who has had previous hip replacements presenting with right knee pain. She states that she was walking from one room to another when she had a turned or stepped on something and felt a pop in her right knee. She states that the knee felt swollen and was generally painful and she was unable to put weight on it. An x-ray in the ER which was negative for fracture but did show a small effusion. She was placed in a brace and has been doing okay however she is unable to undergo an MRI because of her back pain and she feels like she will not be able to lay down flat for prolonged period of time. At the moment will plan for her to go to [facility] facility for [facility]hab and in the process can see orthopedics as an outpatient for evaluation. OBSV E&M: 45806 Observation care discharge
--- NOTE | 2018-10-24 17:21 | CASEMGMT ---
Social Work Note SW received call from Alicia at [facility] stating she received authorization and pt is able to discharge to [facility] today. Physician updated. JOHN faxed completed discharge paperwork to Alicia at [facility] including transfer to extended care facility, signed medication list and any scripts. Originals in SNF folder and copy on pt's chart. JOHN completed PAS/RR in [facility]. Originals in SNF folder and copy on pt's chart. JOHN arranged transportation via cot for 8:00pm through [facility] as this is the earliest time [facility] or [facility] could transport pt. Transportation form on SNF folder and copy on pt's chart. JOHN updated Pt, Alicia at [facility] and RN of transportation time. Plan: Pt to discharge to [facility] skilled today with [facility] transporting via cot at 8:00pm Lorena [place], CHEMICAL RESEARCH WORKER
[2018-10-24 19:41] VITALS: BP 133/67; PULSE 66; RESP 16; TEMP 37; O2SAT 96
== END 2018-10-24 20:15 | disposition skilled nursing facility (03) ==
LOC: ED 14:36 → MS3 16:57
PROVIDERS: Emergency Provider Emergency Medicine; Family Provider Family Medicine; PCP Family Medicine; Visit Provider Family Medicine
DX: M25.561 Pain in right knee (principal); E66.01 Morbid (severe) obesity due to excess calories; M19.90 Unspecified osteoarthritis, unspecified site; R32 Unspecified urinary incontinence; D68.62 Lupus anticoagulant syndrome; J45.909 Unspecified asthma, uncomplicated; F41.9 Anxiety disorder, unspecified; Z68.37 Body mass index [BMI] 37.0-37.9, adult; Z71.3 Dietary counseling and surveillance; Z91.81 History of falling; Z86.718 Personal history of other venous thrombosis and embolism; Z79.01 Long term (current) use of anticoagulants; Z79.899 Other long term (current) drug therapy
CPT/HCPCS: 36415; 73562; 80048; 85025; 85610; 94640; 96374; 96375; 96376; 97110; 97162; 97166; 97530; 97535; 99218; 99284; A4216; G0378; J2405

== ENCOUNTER → 2018-12-30 14:42 | Outpatient (CLI) | payer MEDICARE, SELFPAY ==
[2018-12-10 11:12] VITALS: BMI 37.6
[2018-12-30 15:44] LABS: Hematocrit 40.8 % (37-47); Hemoglobin 13.2 g/dl (12.0-15.0); Mean Corp Hgb Conc 32.4 g/gl (32-36); Mean Corpuscular Volume 92.7 fL (81-99); Mean Platelet Vol. 9.8 fl (6.2-12.0); Platelet Count 216 K/mm3 (150-450); RBC Distribution Width CV 13.1 % (11.6-14.6); RBC Distribution Width SD 43.1 fl (35.1-43.9); Scan Indicated on CBC? Y/N NO; White Blood Count 6.7 K/mm3 (4.4-11.0)
[2018-12-30 16:10] LABS: Vitamin B12 447 pg/mL (211-911); Vitamin D,25 Hydroxy 19.3 ng/mL (29.95-100.01)
[2018-12-30 16:42] LABS: ALB/GLOB Ratio 1.2 RATIO (0.9-2.4); AST(SGOT) 13 U/L (15-37); Alanine Aminotransfer ALT/SGPT 17 U/L (13-56); Alkaline Phosphatase 76 U/L (45-117); Anion Gap 5 (5-15); BUN 8 mg/dL (7-18); BUN/Creat Ratio 10.6 RATIO (10-20); Calcium,Total 8.6 mg/dL (8.5-10.1); Chloride 107 mmol/L (98-107); Creatinine, Serum 0.76 mg/dL (0.55-1.02); EST Glomerular Filtration Rate 79 mL/min (>60); Est Glom Filt Rate - Afr Amer 96 mL/min (>60); Ferritin 7 ng/mL (8-252); Globulin 3.4 g/dL (2.2-4.2); Glucose 86 mg/dL (74-106); Iron 31 ug/dL (50-170); Iron Binding Capacity,Total 331 ug/dL (250-450); Potassium 4.2 mmol/L (3.5-5.1); Protein, Total 7.4 g/dL (6.4-8.2); Sodium Level 139 mmol/L (136-145); Thyroid Stim Hormone (TSH) 1.09 uIU/mL (0.358-3.74)
== END ==
PROVIDERS: Family Provider Family Medicine; PCP Family Medicine; Visit Provider Family Medicine
DX: R42 Dizziness and giddiness (principal); D64.9 Anemia, unspecified; E55.9 Vitamin D deficiency, unspecified; I82.409 Acute embolism and thrombosis of unspecified deep veins of unspecified lower extremity
CPT/HCPCS: 36415; 80053; 82306; 82607; 82728; 82746; 83540; 83550; 84443; 85027

== ENCOUNTER → 2019-01-28 17:50 | Outpatient (CLI) | payer MEDICARE, SELFPAY ==
[2018-12-10 11:12] VITALS: BMI 37.6
== END ==
PROVIDERS: Family Provider Family Medicine; PCP Family Medicine; Referring Provider Family Medicine; Visit Provider Family Medicine
DX: R30.0 Dysuria (principal)
CPT/HCPCS: 87077; 87086; 87088; 87186

== ENCOUNTER → 2019-04-09 11:41 | Outpatient (CLI) | payer MEDICARE, SELFPAY ==
[2019-03-11 10:56] VITALS: BMI 37.6
[2019-04-09 14:10] LABS: Hematocrit 43.6 % (37-47); Hemoglobin 14.6 g/dL (12.0-15.0); Mean Corp Hgb Conc 33.5 g/dL (32-36); Mean Corpuscular Hgb 32.6 pg (27.0-32.0); Mean Corpuscular Volume 97.3 fL (81-99); Mean Platelet Vol. 9.6 fl (6.2-12.0); Platelet Count 202 K/mm3 (150-450); RBC Distribution Width CV 12.9 % (11.6-14.6); RBC Distribution Width SD 46.4 fl (35.1-43.9); Red Blood Count 4.48 M/mm3 (4.2-5.4); White Blood Count 6.6 K/mm3 (4.4-11.0)
[2019-04-09 14:26] LABS: Ferritin 32 ng/mL (8-252); Iron 138 ug/dL (50-170)
== END ==
LOC: MFPLAB 11:41
PROVIDERS: Family Provider Family Medicine; PCP Family Medicine; Referring Provider Family Medicine; Visit Provider Family Medicine
DX: D64.9 Anemia, unspecified (principal); R79.89 Other specified abnormal findings of blood chemistry
CPT/HCPCS: 36415; 82728; 83540; 85027

== ENCOUNTER → 2019-08-26 10:15 | Outpatient (CLI) | payer MEDICARE, SELFPAY ==
[2019-06-24 11:28] VITALS: BMI 37.6
--- NOTE | 2019-08-26 10:19 | BI_ITS ---
MAMMOGRAPHY - BILATERAL SCREENING REASON FOR EXAM: Female, 73 years old. Routine annual screening examination. PERTINENT HISTORY: Non-contributory. TECHNIQUE: Digital bilateral breast mely (3D mammographic acquisition) in the CC and MLO projections. 2-D mediolateral oblique (MLO) and craniocaudad (CC) views of both breasts were obtained. CAD: Full Field Digital Mammography with Computer Added Detection was performed. COMPARISON: No comparison mammograms available at this time. If any prior films become available, an addendum to this report can be generated. FINDINGS: Breast Composition: The breasts are heterogeneously dense, which may obscure small masses. There are no dominant masses or suspicious calcifications. Small benign-appearing bilateral axillary lymph nodes. No other significant abnormalities are identified. BI/SCREEN MAMM (CAD) W/MELY BILAT IMPRESSION: Negative screening mammogram. Yearly followup mammogram recommended. (A) ASSESSMENT CATEGORY: BIRADS Category 2: Benign. A letter regarding these results will be sent to the patient by the facility within 30 days. Approximately 10% of breast cancers are not detected by mammography. A normal mammogram should not delay biopsy of a clinically suspicious abnormality. [id number] Electronically Signed: Bruce Gore, at 13:09 EST , Service support ,
== END ==
PROVIDERS: Family Provider Family Medicine; PCP Family Medicine; Referring Provider Family Medicine; Visit Provider Family Medicine
DX: Z00.00 Encounter for general adult medical examination without abnormal findings (principal); Z12.31 Encounter for screening mammogram for malignant neoplasm of breast
CPT/HCPCS: 77063; 77067

== ENCOUNTER → 2019-10-27 11:58 | Outpatient (CLI) | payer MEDICARE, SELFPAY ==
[2019-10-07 11:07] VITALS: BMI 37.6
[2019-10-27 15:31] LABS: Hematocrit 42.6 % (37-47); Hemoglobin 14.3 g/dL (12.0-15.0); Mean Corp Hgb Conc 33.6 g/dL (32-36); Mean Corpuscular Hgb 33.3 pg (27.0-32.0); Mean Corpuscular Volume 99.3 fL (81-99); Mean Platelet Vol. 9.3 fl (6.2-12.0); Platelet Count 288 K/mm3 (150-450); RBC Distribution Width CV 12.5 % (11.6-14.6); RBC Distribution Width SD 45.6 fl (35.1-43.9); Red Blood Count 4.29 M/mm3 (4.2-5.4); White Blood Count 7.6 K/mm3 (4.4-11.0)
[2019-10-27 15:55] LABS: Anion Gap 7 (5-15); BUN 6 mg/dL (7-18); BUN/Creat Ratio 7.2 RATIO (10-20); Calcium,Total 8.6 mg/dL (8.5-10.1); Chloride 102 mmol/L (98-107); Creatinine, Serum 0.83 mg/dL (0.55-1.02); EST Glomerular Filtration Rate 71 mL/min (>60); Est Glom Filt Rate - Afr Amer 86 mL/min (>60); Ferritin 40 ng/mL (8-252); Glucose 87 mg/dL (74-106); Iron 78 ug/dL (50-170); Potassium 4.3 mmol/L (3.5-5.1); Sodium Level 135 mmol/L (136-145)
[2019-10-27 15:56] LABS: Vitamin D,25 Hydroxy 41.4 ng/mL
== END ==
LOC: MFPLAB 12:03
PROVIDERS: PCP Family Medicine; Referring Provider Family Medicine; Visit Provider Family Medicine
DX: D64.9 Anemia, unspecified (principal); R79.89 Other specified abnormal findings of blood chemistry; E55.9 Vitamin D deficiency, unspecified; K21.9 Gastro-esophageal reflux disease without esophagitis
CPT/HCPCS: 36415; 80048; 82306; 82728; 83540; 85027

== ENCOUNTER 2019-11-11 20:25 | Emergency (ER) | payer MEDICARE, SELFPAY ==
[2019-10-07 11:07] VITALS: BMI 37.6
[2019-11-11 20:26] VITALS: BP 168/51; PULSE 57; RESP 18; TEMP 36.7; O2SAT 99; BMI 35.5
[2019-11-11 20:28] VITALS: BP 168/51; PULSE 57; RESP 18; TEMP 36.7; O2SAT 99
--- NOTE | 2019-11-11 20:42 | ED.VIS.GEN ---
History of Present Illness Chief Complaint: Dizziness Detail of Chief Complaint: And urinary symptoms and sore buttocks area Informant: Patient Onset: Days Context: Sudden Onset Timing: Continuous - Sore has been constant, Intermittent - Dizziness is positional and patient defines as lightheaded not spinning Quality: Patient has no pain Location: Generalized, perineum/buttocks and urethra Current Severity: Mild Maximum Severity: Moderate Worsened by: Urination and incontinence and upright position Relieved by: Dizziness better when supine Associated Symptoms: No other symptoms Narrative: Patient is an elderly woman who presents with dizziness, frequency, and sores down there . Patient denies fever, chills night sweats. She denies ocular, visual auditory symptoms. She denies diplopia or vertigo. She denies cardiac or respiratory symptoms. Does report frequency, incontinence and urgency. She has no other symptoms. Prior similar symptoms: Yes - UTI Recent Illness/Hospitalization: No - Past Medical History (1) Cystocele and rectocele with incomplete uterovaginal prolapse Status: Acute (2) Arthritis Status: Chronic (3) Asthma Status: Chronic (4) DVT (deep venous thrombosis) Status: Chronic (5) Incontinence Status: Chronic (6) lupus anticoagulant Status: Chronic Past Medical History - Allergies and Home Meds Allergies/Adverse Reactions: Allergies latex Adverse Reaction (Verified 10/07/19 11:07) Rash Primary Care Physician: True Vazquez MD [Primary Care Provider] - Prior records reviewed: Yes Surgical History: appendectomy, cholecystectomy, total hip arthroplasty, - - colonoscopy and egd in the past. Lives: Alone Smoking Status: Never smoker Alcohol: None Drugs: None - Family History Paternal Family History: Family History (Last Reviewed 10/07/19 @ 11:07 by Florencia Malin) Father Lung cancer Family History: Reports: Cancer Review of Systems General: Denies: Chills, Fever, Malaise, Subjective, Sweats Eyes: Denies: Visual changes - bilaterally, Blurred Vision - bilaterally, Diplopia ENT: Reports: - - She denies ringing or ears or decreased hearing. Denies: Bilateral ear pain, Rhinorrhea, Sore throat Cardiovascular: Denies: Chest pain, Palpitations Respiratory: Denies: Dyspnea, Cough, Dyspnea on exertion Gastrointestinal: Denies: Abdominal pain, Nausea, Vomiting, Diarrhea, Melena, Hematochezia Genitourinary: Reports: Frequency. Denies: Dysuria, Hematuria Musculoskeletal: Denies: Myalgias, Arthralgias, Neck pain, Back pain, Swelling, Extremity Pain Skin: Reports: Rash, Wounds. Denies: Abscess, Abrasions Neurological: Denies: Headache, Weakness Endocrine: Denies: Polyuria, Polydipsia Hematologic: Denies: Easy bruising, Easy bleeding Physical Exam Vital Signs/Narrative: Vital Signs Temp Pulse Resp BP Pulse Ox 11/11/19 20:28 98.1 F 57 L 18 168/51 H 99 11/11/19 20:26 98.1 F 57 L 18 168/51 H 99 Inital Vital Signs reviewed: Yes General: Well nourished, Well developed, Obese, No Acute Distress Head: Normocephalic, Atraumatic Eyes: Perrl, EOMI. Negative for: Pale conjunctiva, Scleral icterus ENT: Moist mucous membranes, No rhinorrhea. Negative for: Nasal congestion, Sinus tenderness Neck: Supple, Nontender, No lymphadenopathy, No JVD Cardiovascular: Regular rate, Regular rhythm, No murmurs, Normal S1, Normal S2 Respiratory: No distress, CTA bilaterally, Chest nontender Abdomen: Soft, Nontender, Nondistended, Normal bowel sounds Rectal: - - There is area of excoriation gluteal crease with breakdown of skin near anus. There is no erythema, warmth, induration or fluctuance. Back: Nontender, Normal Inspection Extremities: Nontender, No edema Skin: Normal color, No rash, No Trauma. Negative for: Cyanosis, Diaphoresis, Jaundice Neurological: Alert, Oriented x3, Cranial nerves II-XII grossly intact, Normal Strength, Normal Sensation, Normal DTR Psychological: Depressed Diagnostic/Tx/Re-eval Laboratory Results 11/11/19 11/11/19 11/11/19 20:45 20:45 20:45 WBC 8.9 RBC 4.22 Hgb 13.9 Hct 42.1 MCV 99.8 H MCH 32.9 H MCHC 33.0 RDW Std Deviation 46.3 H RDW Coeff of Sam 12.5 Plt Count 197 MPV 9.4 Immature Gran % (Auto) 0.300 Neut % (Auto) 72.2 H Lymph % (Auto) 16.5 L [place] % (Auto) 7.2 Eos % (Auto) 3.5 Baso % (Auto) 0.3 Absolute Neuts (auto) 6.4 Absolute Lymphs (auto) 1.46 Nucleated RBC % 0 PT 45.8 H INR 4.8 H* Sodium 139 Potassium 4.2 Chloride 103 Carbon Dioxide 30.0 Anion Gap 6 BUN 9 Creatinine 0.77 Estim Creat Clear Calc 43.07 Est GFR (MDRD) Af Amer 93 Est GFR (MDRD) Non-Af 77 BUN/Creatinine Ratio 11.6 Glucose 97 Calcium 9.0 Urine Color Urine Clarity Urine pH Ur Specific [place] Urine Protein Urine Glucose (UA) Urine Ketones Urine Occult Blood Urine Nitrite Urine Bilirubin Urine Urobilinogen Ur Leukocyte Esterase Urine RBC Urine WBC Ur Squamous Epith Cells Urine Bacteria Urine Mucus 11/11/19 20:45 WBC RBC Hgb Hct MCV MCH MCHC RDW Std Deviation RDW Coeff of Sam Plt Count MPV Immature Gran % (Auto) Neut % (Auto) Lymph % (Auto) [place] % (Auto) Eos % (Auto) Baso % (Auto) Absolute Neuts (auto) Absolute Lymphs (auto) Nucleated RBC % PT INR Sodium Potassium Chloride Carbon Dioxide Anion Gap BUN Creatinine Estim Creat Clear Calc Est GFR (MDRD) Af Amer Est GFR (MDRD) Non-Af BUN/Creatinine Ratio Glucose Calcium Urine Color Straw Urine Clarity Clear Urine pH 6.5 Ur Specific [place] 1.010 Urine Protein Negative Urine Glucose (UA) Normal Urine Ketones Negative Urine Occult Blood 10 H Urine Nitrite Positive H Urine Bilirubin Negative Urine Urobilinogen Normal Ur Leukocyte Esterase Negative Urine RBC 0 SEEN Urine WBC 0 SEEN Ur Squamous Epith Cells 0 SEEN Urine Bacteria 2+ Urine Mucus 0 SEEN CBC and basic metabolic panel are unremarkable. INR is elevated. She states her last INR was greater than 6. She has had problems regulating Coumadin since restarting after oral surgery. Since her white count is normal and she has no systemic symptoms will treat with Macrobid. Culture was sent. - Medical Decision Making Patient presents with urinary symptoms. She is had prior urinary tract infections. Straight cath urine specimen was obtained. CBC was obtained to assess for anemia. Basic metabolic panel was obtained to assess electrolytes, glucose and CO2. In light of patient's multiple medical problems and having increased thirst and urination need to rule out diabetes. Patient's dizziness is orthostatic symptoms and reason for fluid bolus. ED Disposition - Plan for ED Patient: Disposition: Home or Assisted Living Diagnosis: Acute cystitis, Stage II decubitus ulcer, Lightheadedness, Warfarin-induced coagulopathy, lupus anticoagulant Instructions: Urinary Tract Infections in Women, Decubitus Ulcer Prescriptions: Nitrofurantoin Macrocrystals [Macrobid] 100 mg PO Q12 #10 cap Transmission Status: Pending to [id number] Referrals: True Vazquez MD [Primary Care Provider] - 3-5 Days
[2019-11-11 20:59] LABS: Mucous, Urine 0 SEEN /hpf (<or=2+); Red Blood Cells-Urine 0 SEEN /hpf (0-5); Squamous Epithelial Cells - UA 0 SEEN /hpf (5-10); White Blood Cells 0 SEEN /hpf (0-5)
[2019-11-11 21:02] LABS: Absolute Lymphocyte Count 1.46 X10^3/uL (0.83-4.51); Absolute Neutrophil Count 6.4 X10^3/uL (2.0-7.7); Basophil# 0.03 X10^3/uL; Basophil% 0.3 % (0-1); Eosinophil# 0.31 X10^3/uL; Eosinophils% 3.5 % (0-5); Hematocrit 42.1 % (37-47); Hemoglobin 13.9 g/dL (12.0-15.0); Lymphocyte # 1.46 X10^3/ul (4.0); Lymphocyte % 16.5 % (19-41); Mean Corpuscular Hgb 32.9 pg (27.0-32.0); Mean Corpuscular Volume 99.8 fL (81-99); Mean Platelet Vol. 9.4 fl (6.2-12.0); Monocyte# 0.64 X10^3/uL; Monocyte% 7.2 % (0-10); NRBC Flagged by Analyzer 0 % (0-5); Neutrophil % 72.2 % (47-70); Platelet Count 197 K/mm3 (150-450); RBC Distribution Width CV 12.5 % (11.6-14.6); RBC Distribution Width SD 46.3 fl (35.1-43.9); Red Blood Count 4.22 M/mm3 (4.2-5.4); White Blood Count 8.9 K/mm3 (4.4-11.0)
[2019-11-11 21:09] LABS: Color, Urine Straw (Yellow); Glucose, Dipstick Normal (Normal); Ketone-Dipstick Negative (Negative); Leukocyte Esterase-Dipstick Negative /ul (Negative); Nitrite-Dipstick Positive (Negative); Occult Blood-Urine 10 /ul (Negative); Protein-Dipstick Negative (Negative); Urine Bilirubin Dipstick Negative (Negative); Urine Clarity Clear (Clear); Urine Urobilinogen Normal (Normal); Urine pH 6.5 (5.0 - 8.0)
[2019-11-11 21:15] LABS: Anion Gap 6 (5-15); BUN 9 mg/dL (7-18); BUN/Creat Ratio 11.6 RATIO (10-20); Chloride 103 mmol/L (98-107); Creatinine, Serum 0.77 mg/dL (0.55-1.02); EST Glomerular Filtration Rate 77 mL/min (>60); Est Glom Filt Rate - Afr Amer 93 mL/min (>60); Estimated Creatinine Clearance 43.07 ml/min; Glucose 97 mg/dL (74-106); Potassium 4.2 mmol/L (3.5-5.1); Sodium Level 139 mmol/L (136-145)
[2019-11-11 21:19] LABS: Prothrombin Time (Protime)PT. 45.8 SECONDS (11.7-14.9)
[2019-11-11 21:22] LABS: International Normalized Ratio 4.8
[2019-11-11 21:26] LABS: Bacteria 2+ /hpf (None Seen)
[2019-11-11 21:35] VITALS: BP 132/70; PULSE 62; RESP 18; O2SAT 99
[2019-11-11] MEDS: Ceftriaxone 1 GM/50 ML BAG IV (22:33)
[2019-11-11 23:28] VITALS: BP 147/81; PULSE 80; RESP 16; TEMP 36.8; O2SAT 98
== END 2019-11-11 23:30 | disposition home or self-care (01) ==
PROVIDERS: Emergency Medicine; Emergency Provider Emergency Medicine; PCP Family Medicine
DX: N30.00 Acute cystitis without hematuria (principal); L89.152 Pressure ulcer of sacral region, stage 2; R42 Dizziness and giddiness; D68.62 Lupus anticoagulant syndrome; T45.515A Adverse effect of anticoagulants, initial encounter; M19.90 Unspecified osteoarthritis, unspecified site; J45.909 Unspecified asthma, uncomplicated; E66.9 Obesity, unspecified; Z79.899 Other long term (current) drug therapy; Z86.718 Personal history of other venous thrombosis and embolism; Z87.440 Personal history of urinary (tract) infections; Z90.49 Acquired absence of other specified parts of digestive tract
CPT/HCPCS: 80048; 81001; 85025; 85610; 87077; 87086; 87088; 87186; 96361; 96365; 99285; J7030; P9612; A4216

== ENCOUNTER → 2020-07-12 | Outpatient (CLI) | payer MEDICARE, SELFPAY ==
[2020-05-18 11:45] VITALS: BMI 35.5
== END | disposition home or self-care (01) ==
LOC: LABSPEC 13:16
PROVIDERS: PCP Family Medicine; Referring Provider Nurse Practitioner Women's Health; Visit Provider Nurse Practitioner Women's Health
DX: N39.3 Stress incontinence (female) (male) (principal)
CPT/HCPCS: 87077; 87086; 87088; 87186

== ENCOUNTER → 2020-08-11 | Outpatient (CLI) | payer MEDICARE, SELFPAY ==
[2020-08-11 13:59] VITALS: BMI 32.5
== END | disposition home or self-care (01) ==
LOC: LABSPEC 16:39
PROVIDERS: PCP Family Medicine; Referring Provider Nurse Practitioner Women's Health; Visit Provider Nurse Practitioner Women's Health
DX: R32 Unspecified urinary incontinence (principal)
CPT/HCPCS: 87077; 87086; 87088; 87186

== ENCOUNTER → 2020-08-14 12:29 | Outpatient (CLI) | payer MEDICARE, SELFPAY ==
[2020-08-11 13:59] VITALS: BMI 32.5
[2020-08-14 13:13] LABS: Absolute Lymphocyte Count 1.53 X10^3/uL (0.83-4.51); Absolute Neutrophil Count 3.6 X10^3/uL (2.0-7.7); Basophil# 0.02 X10^3/uL; Basophil% 0.3 % (0-1); Eosinophil# 0.22 X10^3/uL; Eosinophils% 3.8 % (0-5); Hematocrit 43.5 % (37-47); Hemoglobin 14.4 g/dL (12.0-15.0); Lymphocyte # 1.53 X10^3/ul (4.0); Lymphocyte % 26.4 % (19-41); Mean Corp Hgb Conc 33.1 g/dL (32-36); Mean Corpuscular Hgb 34.7 pg (27.0-32.0); Mean Corpuscular Volume 104.8 fL (81-99); Mean Platelet Vol. 8.8 fl (6.2-12.0); Monocyte# 0.44 X10^3/uL; Monocyte% 7.6 % (0-10); NRBC Flagged by Analyzer 0 % (0-5); Neutrophil # 3.57 X10^3/uL (2.7-7.7); Neutrophil % 61.6 % (47-70); Platelet Count 221 K/mm3 (150-450); RBC Distribution Width CV 13.7 % (11.6-14.6); RBC Distribution Width SD 52.6 fl (35.1-43.9); Red Blood Count 4.15 M/mm3 (4.2-5.4); White Blood Count 5.8 K/mm3 (4.4-11.0)
[2020-08-14 13:24] LABS: International Normalized Ratio 1.7; Prothrombin Time (Protime)PT. 19.9 SECONDS (11.7-14.9)
[2020-08-14 14:12] LABS: ALB/GLOB Ratio 1.1 RATIO (0.9-2.4); AST(SGOT) 13 U/L (15-37); Alanine Aminotransfer ALT/SGPT 14 U/L (13-56); Albumin, Serum 3.9 g/dL (3.2-5.0); Alkaline Phosphatase 73 U/L (45-117); Anion Gap 5 (5-15); BUN 7 mg/dL (7-18); BUN/Creat Ratio 7.9 RATIO (10-20); Calcium,Total 9.2 mg/dL (8.5-10.1); Chloride 101 mmol/L (98-107); Cholesterol 153 mg/dL (200); Creatinine, Serum 0.88 mg/dL (0.55-1.02); EST Glomerular Filtration Rate 66 mL/min (>60); Est Glom Filt Rate - Afr Amer 80 mL/min (>60); Globulin 3.5 g/dL (2.2-4.2); Glucose 87 mg/dL (74-106); High Density Lipoprotein 72 mg/dL; Iron 100 ug/dL (50-170); Potassium 4.2 mmol/L (3.5-5.1); Protein, Total 7.4 g/dL (6.4-8.2); Sodium Level 135 mmol/L (136-145); Triglycerides 144 mg/dL; Very Low Density Lipoprotein 29 mg/dL (5-40)
[2020-08-16 11:15] LABS: Vitamin D,25 Hydroxy 62.4 ng/mL
== END ==
PROVIDERS: PCP Family Medicine; Visit Provider Family Medicine
DX: D64.9 Anemia, unspecified (principal); K21.9 Gastro-esophageal reflux disease without esophagitis; I82.409 Acute embolism and thrombosis of unspecified deep veins of unspecified lower extremity; R79.89 Other specified abnormal findings of blood chemistry; Z13.220 Encounter for screening for lipoid disorders
CPT/HCPCS: 80053; 80061; 82306; 83540; 83735; 85025; 85610

== ENCOUNTER → 2020-09-01 10:25 | Outpatient (CLI) | payer MEDICARE, SELFPAY ==
[2020-05-18 11:45] VITALS: BMI 35.5
[2020-08-11 13:59] VITALS: BMI 32.5
--- NOTE | 2020-09-01 10:28 | BI_ITS ---
MAMMOGRAPHY - BILATERAL SCREENING REASON FOR EXAM: Female, 74 years old. Routine annual screening examination. PERTINENT HISTORY: Non-contributory. TECHNIQUE: Digital bilateral breast mely (3D mammographic acquisition) in the CC and MLO projections. 2-D mediolateral oblique (MLO) and craniocaudad (CC) views of both breasts were obtained. CAD: Full Field Digital Mammography with Computer Added Detection was performed. COMPARISON: Comparison is made with prior examination dated 02/24/2020. FINDINGS: Breast Composition: The breasts are heterogeneously dense, which may obscure small masses. There are no dominant masses or suspicious calcifications. Stable small benign appearing bilateral axillary lymph nodes. No other significant abnormalities are identified. There has been no significant change since the prior study. BI/SCREEN MAMM (CAD) W/MELY BILAT IMPRESSION: Stable bilateral screening mammogram. Yearly follow-up mammogram recommended. (A) ASSESSMENT CATEGORY: BIRADS Category 2: Benign. A letter regarding these results will be sent to the patient by the facility within 30 days. Approximately 10% of breast cancers are not detected by mammography. A normal mammogram should not delay biopsy of a clinically suspicious abnormality. [id number] Electronically Signed: Bruce Gore, at 12:26 EST , Service support ,
--- NOTE | 2020-09-01 10:31 | BD_ITS ---
STUDY: DUAL ENERGY X-RAY ABSORPTIOMETRY / DXA REASON FOR EXAM: Female, 74 years old. SPECIALIST WOUND CARE -- USES STEROID INHALER PRN AND NASAL SPRAY PRN -- TAKES MULTIVITAMIN AND VITAMIN D -- DOES MODERATE AMOUNT OF EXERCISE -- HX OF BILATERAL HIP REPLACEMENTS -- LENCHO OF 3.5 INCHES TECHNIQUE: Bone Mineral Density (BMD) measurements of both forearms were obtained. COMPARISON: None. FINDINGS: Right Forearm: g/cm2 (0.664) / T-score (-2.5) / Z-score (-0.1) Left Forearm: g/cm2 (0.640) / T-score (-2.8) / Z-score (-0.4) BD/Dexa Bone Density/Append Skel IMPRESSION: The patient is considered osteoporotic as outlined below according to World Dat Organization (WHO) criteria with a high fracture risk. Reference Information: The T-score is the number of standard deviations above or below the standard which is normal for young adults at their peak bone mineral density. The World Health Organization (WHO) interprets the T-scores as follows: Above -1 Normal bone density Between -1 and -2.5 Osteopenia Equal to / or below -2.5 Osteoporosis As a practical clinical guideline, osteopenia may be graded as follows: Mild -1 through -1.5 Moderate -1.6 through -2.0 Severe -2.1 through -2.4 The Z-score is the number of standard deviations above or below age-matched controls. A Z-score of less than -1.5 would be considered abnormal. References: 1. NIH Osteoporosis and Related Bone Diseases www osteo.org 2. International Society for Clinical Densitometry www iscd.org 3. National Osteoporosis Foundation www nof.org Electronically Signed: Bruce Gore, at 10:46 EST , Service support ,
== END ==
PROVIDERS: PCP Family Medicine; Visit Provider Family Medicine
DX: Z12.31 Encounter for screening mammogram for malignant neoplasm of breast (principal); Z78.0 Asymptomatic menopausal state; M81.0 Age-related osteoporosis without current pathological fracture
CPT/HCPCS: 77063; 77067; 77081

== ENCOUNTER → 2020-09-15 12:01 | Outpatient (CLI) | payer MEDICARE, SELFPAY ==
[2020-08-11 13:59] VITALS: BMI 32.5
--- NOTE | 2020-09-15 12:06 | US_ITS ---
STUDY: RENAL ULTRASOUND - COMPLETE REASON FOR EXAM: Female, 75 years old. UTI -- LEAKING TECHNIQUE: Ultrasound evaluation of the kidneys was performed with real-time and static lang-scale imaging. COMPARISON: None. FINDINGS: RIGHT KIDNEY: Normal location of the right kidney, which is normal in size. The right kidney measures 10.3 cm x 5.1 cm x 3.7 cm. There is a normal cortex of the right kidney. The renal cortex measures 1.3 cm. There is no right renal mass or cyst. There are no right renal calculi. There is no right hydronephrosis. DISTAL RIGHT URETER: There is non-visualization of the distal right ureter. There is no demonstrated right ureterovesical junction calculus. There is a visualized right ureteral jet. LEFT KIDNEY: Normal location of the left kidney, which is normal in size. The left kidney measures 9.6 cm x 5.6 x 4.2 cm. There is a normal cortex of the left kidney. The renal cortex measures 1.5 cm. There is no left renal mass or cyst. There are no left renal calculi. There is no left hydronephrosis. DISTAL LEFT URETER: There is non-visualization of the distal left ureter. There is no demonstrated left ureterovesical junction calculus. There is a visualized left ureteral jet. Incidental note is made of a mild degree of splenic enlargement. It measures 12.5 cm x 5 cm x 4.4 cm BLADDER: The distended urinary bladder has a volume of 210 ml. There is a normal wall thickness of the distended urinary bladder. There is no demonstrated mass within the urinary bladder. There are no demonstrated bladder calculi. US/Kidney and Bladder IMPRESSION: Mild splenomegaly. Electronically Signed: Bruce Gore MD at 13:13 EST , Service support ,
== END ==
PROVIDERS: PCP Family Medicine; Referring Provider Urology; Visit Provider Urology
DX: N39.0 Urinary tract infection, site not specified (principal)
CPT/HCPCS: 76770

== ENCOUNTER → 2020-09-21 14:50 | Outpatient (CLI) | payer MEDICARE, SELFPAY ==
[2020-08-11 13:59] VITALS: BMI 32.5
[2020-09-21] MEDS: 0.9% NaCl Peripheral Flush Adult/Peds IV (15:18)
[2020-09-21] MEDS: Zoledronic Acid 5 MG 100 ML 300 MG IV (15:21)
[2020-09-21 15:22] VITALS: BP 139/73; PULSE 76; RESP 16; TEMP 36.4; O2SAT 97; BMI 35.8
[2020-09-21 15:46] VITALS: BP 138/66; PULSE 60; RESP 18; O2SAT 100
== END ==
PROVIDERS: PCP Family Medicine; Referring Provider Family Medicine; Visit Provider Family Medicine
DX: M81.0 Age-related osteoporosis without current pathological fracture (principal)
CPT/HCPCS: 96365; A4216; J3489

== ENCOUNTER → 2021-03-08 11:10 | Outpatient (CLI) | payer MEDICARE, SELFPAY ==
[2021-02-01 10:49] VITALS: BMI 37.8
--- NOTE | 2021-03-08 11:15 | RAD_ITS ---
STUDY: X-RAY - LUMBOSACRAL SPINE REASON FOR EXAM: Female, 75 years old. Leg pain. TECHNIQUE: 6 view(s) of the lumbosacral spine including lateral flexion and extension views were obtained. COMPARISON: 05/20/2018. FINDINGS: Generalized osteopenia. Stable rotatory thoracolumbar scoliosis. Limited flexion and extension with no abnormal motion. Diffuse facet sclerosis unchanged. Diffuse moderate to marked intervertebral disc space narrowing with osteophyte formation most probable at the L2-3 interspace, unchanged. Bilateral total hip arthroplasties unchanged. Stable cholecystectomy clips. RAD/L/S Spine w Bend Min 6 Vw IMPRESSION: Stable osteopenia, scoliosis and moderate to marked lumbar spondylosis, most prevalent at L2-3. Limited flexion and extension with no abnormal motion. No acute abnormality, evidence of erosive changes or fusion. Electronically Signed: Sarwat Morales MD at 9:44 EDT , Service support ,
[2021-03-08 15:20] LABS: Absolute Lymphocyte Count 1.15 X10^3/uL (0.83-4.51); Absolute Neutrophil Count 3.8 X10^3/uL (2.0-7.7); Basophil# 0.03 X10^3/uL; Basophil% 0.5 % (0-1); Eosinophil# 0.21 X10^3/uL; Eosinophils% 3.7 % (0-5); Hematocrit 41.2 % (37-47); Hemoglobin 13.7 g/dL (12.0-15.0); Lymphocyte # 1.15 X10^3/ul (0.83-4.51); Lymphocyte % 20.2 % (19-41); Mean Corp Hgb Conc 33.3 g/dL (32-36); Mean Corpuscular Hgb 35.7 pg (27.0-32.0); Mean Corpuscular Volume 107.3 fL (81-99); Mean Platelet Vol. 9.4 fl (6.2-12.0); Monocyte# 0.48 X10^3/uL; Monocyte% 8.5 % (0-10); NRBC Flagged by Analyzer 0 % (0-5); Neutrophil % 66.9 % (47-70); Platelet Count 244 K/mm3 (150-450); RBC Distribution Width CV 14.5 % (11.6-14.6); RBC Distribution Width SD 57.5 fl (35.1-43.9); Red Blood Count 3.84 M/mm3 (4.2-5.4); White Blood Count 5.7 K/mm3 (4.4-11.0)
[2021-03-08 15:31] LABS: Erythrocyte Sedimentation Rate 5 mm/hr (0-30)
[2021-03-08 15:40] LABS: Anion Gap 7 (5-15); BUN 6 mg/dL (7-18); BUN/Creat Ratio 7.4 RATIO (10-20); Calcium,Total 8.6 mg/dL (8.5-10.1); Chloride 101 mmol/L (98-107); Creatinine, Serum 0.81 mg/dL (0.55-1.02); EST Glomerular Filtration Rate 73 mL/min (>60); Est Glom Filt Rate - Afr Amer 88 mL/min (>60); Glucose 76 mg/dL (74-106); Magnesium 2.2 mg/dL (1.6-2.6); Potassium 4.6 mmol/L (3.5-5.1); Sodium Level 137 mmol/L (136-145); Thyroid Stim Hormone (TSH) 1.11 uIU/mL (0.358-3.74)
[2021-03-09 12:39] LABS: Vitamin B12 303 pg/mL (211-911)
== END ==
PROVIDERS: PCP Family Medicine; Referring Provider Family Medicine; Visit Provider Family Medicine
DX: M79.606 Pain in leg, unspecified (principal); D64.9 Anemia, unspecified
CPT/HCPCS: 36415; 72114; 80048; 82607; 83735; 84443; 85025; 85652

== ENCOUNTER 2021-07-12 02:02 | Emergency (ER) | payer MEDICARE, SELFPAY ==
[2021-07-12 02:02] VITALS: BP 153/74; PULSE 79; RESP 18; TEMP 36.7; O2SAT 98; BMI 37.0
[2021-07-12 02:08] VITALS: BP 153/74; PULSE 79; RESP 18; TEMP 36.7; O2SAT 98
--- NOTE | 2021-07-12 02:53 | EDS_ITS ---
HPI History of Present Illness Chief Complaint: Complaint Narrative Narrative: Patient is a 75-year-old female with past medical history of of uterine and bladder prolapse who states that she will get recurrent urinary tract infection. She states over the past few weeks she has felt warm and has noticed some intermittent discomfort with urination. She states that she has an appointment with her urologist on Sunday afternoon but was reading about septic shock and has concerned that she may be progressing to this and therefore called EMS to bring her in for evaluation. [facility] Medical History (Updated 07/12/21 @ 04:[address] Pavel Austin, DO) Anxiety Colonoscopy planned Emphysema lung Incontinence Knee injury Phlebitis and thrombophlebitis of superficial vessels of lower extremities, bilateral Home Medications acetaminophen 1,000 mg PO BID PRN 03/09/15 [History Last Taken 10/23/18] albuterol sulfate 1 puff INHALATION Q4H PRN PRN 12/31/16 [History Last Taken 10/21/18] buspirone 10 mg tablet 10 mg PO TID tab 08/27/18 [History Last Taken 10/23/18] esomeprazole magnesium 40 mg PO DAILY 10/23/18 [History Last Taken 10/23/18] fluticasone propionate 2 spray INHALATION DAILY 10/23/18 [History Last Taken 10/22/18] miscellaneous medical supply #12 ea 12/10/18 [History Last Taken Unknown] clotrimazole-betamethasone 1 %-0.05 % topical cream 1 applic TOPICAL BID 14 Days #45 g 07/12/20 [Rx Last Taken Unknown] ferrous sulfate 325 mg (65 mg iron) tablet 325 mg PO DAILY 10/27/20 [History Last Taken Unknown] loratadine 10 mg tablet 10 mg PO DAILY 10/27/20 [History Last Taken Unknown] mirabegron 50 mg tablet,extended release 24 hr 100 mg PO DAILY tab 10/27/20 [History Last Taken Unknown] oxybutynin chloride 15 mg tablet,extended release 24 hr 15 mg PO DAILY 10/27/20 [History Last Taken Unknown] warfarin 1 mg tablet See Rx Instructions PO DAILY 10/27/20 [History Last Taken Unknown] nitrofurantoin monohyd/m-cryst [Macrobid] 100 mg PO BID 7 Days #14 cap 07/12/21 [Rx Last Taken Unknown] Allergy/AdvReac Type Severity Reaction Status Date / Time latex AdvReac Rash Verified 05/10/21 10:38 Family History Father Lung cancer Surgical History History of hip replacement Hx of cholecystectomy Social History Smoking Status: Never smoker alcohol intake: never substance use type: does not use caffeine: Yes what type of physical activity do you participate in: none seatbelt use: always do you feel safe at home: Yes additional social history: - Max ROS ROS ED Constitutional Constitutional ED: Reports fever(s) and subjective; Denies chills ENT ENT ED: Denies sore throat Cardiovascular Cardiovascular: Denies chest pain Respiratory/Chest Respiratory/Chest: Denies cough or dyspnea Gastrointestinal Gastrointestinal: Denies abdominal pain, diarrhea, nausea or vomiting Genitourinary Genitourinary ED: Reports dysuria Musculoskeletal Musculoskeletal: Denies back pain or myalgias Integumentary Denies rash Neurologic Neurologic: Denies headache(s) Hematologic/Lymphatic Hematologic/Lymphatic: Denies easy bleeding or easy bruising EXAM Physical Exam Const Vital Signs: 07/12/21 02:02 07/12/21 02:08 07/12/21 04:15 Temperature 98.1 F 98.1 F 98.4 F Temperature Source Oral Oral Temporal Pulse Rate 79 79 74 Respiratory Rate 18 18 17 Blood Pressure 153/74 H 153/74 H 134/74 H Blood Pressure Mean 100 100 94 Pulse Ox 98 98 98 Oxygen Delivery Method Room Air Room Air Room Air Positive well nourished and well developed General Appearance ED: well developed HEENT Reports moist mucous membranes Eyes PERRL and EOMs intact bilaterally Neck supple Resp normal respiratory effort and clear to auscultation bilaterally Cardio regular rate and regular rhythm Rate: other Other Details: Radial pulses are plus 2 out of 4 bilaterally they are equal and symmetric GI non-tender, non-distended and no masses GI Narrative: Patient has mild pain with palpation in the suprapubic region but no voluntary guarding or rigidity no pulsatile mass Auscultation: normoactive bowel sounds Palpation: soft Back/Spine no CVA tenderness Extremity normal to inspection Neuro oriented x3 and CN's II-XII intact bilaterally Sensorium / Orientation: alert Motor Exam: strength 5/5 throughout Psych Mood & Affect: anxious Skin no rashes or lesions noted MDM MDM MDM Narrative Medical decision making narrative: Patient presented to the ER afebrile and in no acute distress. Her abdomen was soft and nonsurgical and therefore I felt no need for imaging studies. She was concerned about a urinary tract infection progressing to septic shock. Therefore elected to perform basic laboratory studies. Urine sample did show +2 bacteria and so she was started on Rocephin and the urine was sent for culture. However the labs showed no leukocytosis or lactic acidosis with no signs of acute kidney injury either. Therefore this time patient does not have ZEKE or uroseptic changes. She will be placed on antibiotics and discharged home with follow-up with her family doctor and/or urologist for further evaluation. Discharge Plan Triage Chief Complaint: Complaint ED Provider: Pavel Austin Dx/Rx/DC Orders Clinical Impression: Urinary tract infection Instructions: Urinary Tract Infections in Women Prescriptions: New nitrofurantoin monohyd/m-cryst [Macrobid] 100 mg capsule 100 mg PO BID 7 Days Qty: 14 RF: 0 No Action buspirone 10 mg tablet 10 mg PO TID RF: 0 (DME) miscellaneous medical supply vaginal misc See Dose Instructions .ROUTE .MEDSUPPLY Qty: 12 RF: 0 clotrimazole-betamethasone 1-0.05 % cream 1 applic TOPICAL BID 14 Days Qty: 45 RF: 1 Myrbetriq 50 mg tablet extended release 24 hr 100 mg PO DAILY RF: 0 loratadine [Claritin] 10 mg tablet 10 mg PO DAILY RF: 0 ferrous sulfate [iron] 325 mg (65 mg iron) tablet 325 mg PO DAILY RF: 0 oxybutynin chloride 15 mg tablet extended release 24hr 15 mg PO DAILY RF: 0 warfarin 1 mg tablet See Rx Instructions PO DAILY RF: 0 acetaminophen 500 MG tablet 1,000 mg PO BID PRN (Reason: Pain) RF: 0 albuterol sulfate 1 INHALER inhaler 1 puff inhalation Q4H PRN PRN (Reason: Sob &/Or Wheezing) RF: 0 fluticasone propionate 50 MCG spray,suspension 2 spray inhalation DAILY RF: 0 esomeprazole magnesium 20 MG capsule 40 mg PO DAILY RF: 0 Primary Care Provider: True Vazquez Referrals: True Vazquez MD [Primary Care Provider] - Kiah Guajardo MD [STAFF PHYSICIAN] - 1 Day for another exam Disposition Disposition: Home, Self Care
--- NOTE | 2021-07-12 04:14 | ED.RN ---
Continuing to have IT issues and cannot scan in themedication. Paitent IV ceftriaxone 1gram IVPB started and running at 100ml/hour. Iv patent and flowing into L AC,
[2021-07-12 04:15] VITALS: BP 134/74; PULSE 74; RESP 17; TEMP 36.9; O2SAT 98
[2021-07-12 05:04] VITALS: BP 132/74; PULSE 78; RESP 16; TEMP 36.7; O2SAT 98
[2021-07-12 06:38] LABS: Bacteria 0 SEEN /hpf (None Seen); Mucous, Urine 0 SEEN /hpf (<or=2+); Red Blood Cells-Urine 0 SEEN /hpf (0-5); Squamous Epithelial Cells - UA 0 SEEN /hpf (5-10)
[2021-07-12 07:16] LABS: Color, Urine Yellow (Yellow); Glucose, Dipstick NEGATIVE (Normal); Ketone-Dipstick Negative (Negative); Urine Bilirubin Dipstick Negative (Negative); Urine Clarity Clear (Clear)
[2021-07-12 07:17] LABS: Leukocyte Esterase-Dipstick Negative /ul (Negative); Nitrite-Dipstick Negative (Negative); Occult Blood-Urine 10 /ul (Negative); Protein-Dipstick Negative (Negative); Urine Urobilinogen Normal (Normal); White Blood Cells 0-5 SEEN /hpf (0-5)
[2021-07-12 07:20] LABS: Absolute Lymphocyte Count 0.99 X10^3/uL (0.83-4.51); Absolute Neutrophil Count 4.7 X10^3/uL (2.0-7.7); Basophil# 0.02 X10^3/uL; Basophil% 0.3 % (0-1); Eosinophil# 0.26 X10^3/uL; Hematocrit 40.9 % (37-47); Hemoglobin 13.5 g/dL (12.0-15.0); Lymphocyte # 0.99 X10^3/ul (0.83-4.51); Lymphocyte % 15.4 % (19-41); Mean Corpuscular Hgb 32.8 pg (27.0-32.0); Mean Corpuscular Volume 99.5 fL (81-99); Monocyte# 0.41 X10^3/uL; Monocyte% 6.4 % (0-10); NRBC Flagged by Analyzer 0 % (0-5); Neutrophil # 4.72 X10^3/uL (2.7-7.7); Neutrophil % 73.6 % (47-70); Platelet Count 216 K/mm3 (150-450); RBC Distribution Width CV 12.2 % (11.6-14.6); RBC Distribution Width SD 45.5 fl (35.1-43.9); Red Blood Count 4.11 M/mm3 (4.2-5.4); White Blood Count 6.4 K/mm3 (4.4-11.0)
[2021-07-12 07:51] LABS: BUN 8 mg/dL (7-18); Glucose 99 mg/dL (74-106)
[2021-07-12 07:51] LABS: Lactic Acid 0.8 mmol/L (0.4-1.9)
[2021-07-12 07:52] LABS: Anion Gap 6 (5-15); BUN/Creat Ratio 8.7 RATIO (10-20); Calcium,Total 8.6 mg/dL (8.5-10.1); Chloride 103 mmol/L (98-107); Creatinine, Serum 0.92 mg/dL (0.55-1.02); EST Glomerular Filtration Rate 63 mL/min (>60); Est Glom Filt Rate - Afr Amer 76 mL/min (>60); Estimated Creatinine Clearance 44.22 ml/min; Sodium Level 138 mmol/L (136-145)
== END 2021-07-12 05:18 | disposition home or self-care (01) ==
PROVIDERS: Emergency Provider Emergency Medicine; PCP Family Medicine; Referring Provider Urology
DX: N39.0 Urinary tract infection, site not specified (principal); J43.9 Emphysema, unspecified; F41.9 Anxiety disorder, unspecified; Z79.01 Long term (current) use of anticoagulants; Z79.82 Long term (current) use of aspirin
CPT/HCPCS: 80048; 81001; 83605; 85025; 87086; 87088; 87186; 99285; J7050; A4216

== ENCOUNTER → 2021-08-03 11:47 | Outpatient (CLI) | payer MEDICARE, SELFPAY ==
[2021-08-03 15:25] LABS: Vitamin D,25 Hydroxy 73.8 ng/mL
[2021-08-03 15:27] LABS: Erythrocyte Sedimentation Rate 4 mm/hr (0-30)
[2021-08-03 15:30] LABS: Hematocrit 39.5 % (37-47); Hemoglobin 13.1 g/dL (12.0-15.0); Mean Corp Hgb Conc 33.2 g/dL (32-36); Mean Corpuscular Hgb 32.7 pg (27.0-32.0); Mean Corpuscular Volume 98.5 fL (81-99); Mean Platelet Vol. 9.4 fl (6.2-12.0); Platelet Count 225 K/mm3 (150-450); RBC Distribution Width CV 12.2 % (11.6-14.6); RBC Distribution Width SD 44.7 fl (35.1-43.9); Red Blood Count 4.01 M/mm3 (4.2-5.4); White Blood Count 5.1 K/mm3 (4.4-11.0)
[2021-08-03 15:33] LABS: Anion Gap 10 (5-15); BUN 7 mg/dL (7-18); BUN/Creat Ratio 8.7 RATIO (10-20); Calcium,Total 8.8 mg/dL (8.5-10.1); Chloride 105 mmol/L (98-107); Cholesterol 154 mg/dL (200); EST Glomerular Filtration Rate 73 mL/min (>60); Est Glom Filt Rate - Afr Amer 89 mL/min (>60); Ferritin 21 ng/mL (8-252); Glucose 82 mg/dL (74-106); High Density Lipoprotein 67 mg/dL; Iron 119 ug/dL (50-170); Potassium 3.9 mmol/L (3.5-5.1); Sodium Level 139 mmol/L (136-145); Thyroid Stim Hormone (TSH) 0.81 uIU/mL (0.358-3.74); Triglycerides 129 mg/dL; Very Low Density Lipoprotein 26 mg/dL (5-40)
[2021-08-04 08:12] LABS: PTHIN 53.9 pg/mL (18.4-80.1)
== END ==
PROVIDERS: PCP Family Medicine; Referring Provider Family Medicine; Visit Provider Family Medicine
DX: Z00.00 Encounter for general adult medical examination without abnormal findings (principal); M81.0 Age-related osteoporosis without current pathological fracture; E53.8 Deficiency of other specified B group vitamins; D64.9 Anemia, unspecified
CPT/HCPCS: 80048; 80061; 82306; 82330; 82728; 83540; 83735; 83970; 84100; 84443; 85027; 85652

== ENCOUNTER → 2022-02-01 | Outpatient (CLI) | payer MEDICARE, SELFPAY ==
[2022-02-01 17:30] LABS: Absolute Lymphocyte Count 1.59 X10^3/uL (0.83-4.51); Absolute Neutrophil Count 5.2 X10^3/uL (2.0-7.7); Basophil# 0.02 X10^3/uL; Basophil% 0.3 % (0-1); Eosinophil# 0.15 X10^3/uL; Hematocrit 41.7 % (37-47); Hemoglobin 13.9 g/dL (12.0-15.0); Lymphocyte # 1.59 X10^3/ul (0.83-4.51); Lymphocyte % 21.1 % (19-41); Mean Corp Hgb Conc 33.3 g/dL (32-36); Mean Corpuscular Hgb 32.9 pg (27.0-32.0); Mean Corpuscular Volume 98.8 fL (81-99); Mean Platelet Vol. 9.1 fl (6.2-12.0); Monocyte% 6.6 % (0-10); NRBC Flagged by Analyzer 0 % (0-5); Neutrophil # 5.24 X10^3/uL (2.7-7.7); Neutrophil % 69.7 % (47-70); Platelet Count 254 K/mm3 (150-450); RBC Distribution Width CV 12.7 % (11.6-14.6); RBC Distribution Width SD 46.2 fl (35.1-43.9); Red Blood Count 4.22 M/mm3 (4.2-5.4); White Blood Count 7.5 K/mm3 (4.4-11.0)
[2022-02-01 17:54] LABS: Vitamin B12 1309 pg/mL (211-911); Vitamin D,25 Hydroxy 66.7 ng/mL
[2022-02-01 17:57] LABS: Erythrocyte Sedimentation Rate 10 mm/hr (0-30)
[2022-02-01 17:58] LABS: ALB/GLOB Ratio 1.2 RATIO (0.9-2.4); AST(SGOT) 17 U/L (15-37); Alanine Aminotransfer ALT/SGPT 20 U/L (13-56); Albumin, Serum 3.8 g/dL (3.2-5.0); Alkaline Phosphatase 62 U/L (45-117); Anion Gap 6 (5-15); BUN 8 mg/dL (7-18); BUN/Creat Ratio 9.4 RATIO (10-20); Calcium,Total 9.1 mg/dL (8.5-10.1); Chloride 102 mmol/L (98-107); Creatinine, Serum 0.85 mg/dL (0.55-1.02); EST Glomerular Filtration Rate 69 mL/min (>60); Est Glom Filt Rate - Afr Amer 83 mL/min (>60); Ferritin 15 ng/mL (8-252); Globulin 3.3 g/dL (2.2-4.2); Glucose 100 mg/dL (74-106); Iron 48 ug/dL (50-170); Magnesium 1.8 mg/dL (1.6-2.6); Potassium 4.3 mmol/L (3.5-5.1); Protein, Total 7.1 g/dL (6.4-8.2); Sodium Level 137 mmol/L (136-145); Thyroid Stim Hormone (TSH) 1.13 uIU/mL (0.358-3.74)
== END | disposition home or self-care (01) ==
PROVIDERS: PCP Family Medicine; Referring Provider Family Medicine; Visit Provider Family Medicine
DX: R20.2 Paresthesia of skin (principal); E53.8 Deficiency of other specified B group vitamins; M81.0 Age-related osteoporosis without current pathological fracture; R79.89 Other specified abnormal findings of blood chemistry
CPT/HCPCS: 36415; 80053; 82306; 82607; 82728; 83540; 83735; 84443; 85025; 85652

== ENCOUNTER 2022-05-01 23:07 | Emergency (ER) | payer MEDICARE, SELFPAY ==
--- NOTE | 2022-05-01 00:51 | RAD_ITS ---
INDICATION: dizzy EXAMINATION/TECHNIQUE: X-RAY - AP view of chest COMPARISON: Chest CT from 12/06/2016 FINDINGS: LINES/DEVICES: None. LUNGS: Stable large left basilar retrocardiac hiatal hernia with adjacent left basilar atelectatic changes. No pulmonary edema. No sizable pleural effusion. No detectable pneumothorax. MEDIASTINUM AND CARDIOVASCULAR STRUCTURES: Heart size within normal limits for imaging technique. Atherosclerotic calcifications along aorta. BONES AND SOFT TISSUES: Skeletal degenerative changes. RAD/Chest 1 View (Portable) IMPRESSION: Chronic large hiatal hernia with adjacent left basilar atelectasis. Electronically Signed: Ole Velasquez MD at 1:57 EDT ,
[2022-05-01 23:08] VITALS: BP 155/78; PULSE 65; RESP 14; TEMP 36.5; O2SAT 100; BMI 33.2
--- NOTE | 2022-05-01 23:37 | EKG12_ITS ---
Test Reason : DYSRHYTHMIA Blood Pressure : / mmHG Vent. Rate : 068 BPM Atrial Rate : 068 BPM P-R Int : 178 ms QRS Dur : 148 ms QT Int : 428 ms P-R-T Axes : 027 007 009 degrees QTc Int : 455 ms Normal sinus rhythm Right bundle branch block Abnormal ECG Confirmed by KIERA HUNT, TAMELA ([id number]), manager editorial AMINATA ROJAS ([id number]) on 05/02/2022 9:27:52 AM Referred By: REGAN Confirmed By:TAMELA QURESHI MD
--- NOTE | 2022-05-01 23:39 | EX.ED.DYSGE1 ---
HPI History of Present Illness Chief Complaint: Dizziness Informant: patient Onset/Context/Timing Onset: Days Context: Gradual Onset Narrative Narrative: Patient presents secondary to lightheaded and dizzy sensation for the past week. She is currently being treated for a UTI and initially attributed this to causing her dizziness. In spite of the antibiotic she states her dizziness seems to be slightly worse. Tonight she was looking up to place a heating pad in the microwave when she became very dizzy and thought she might pass out. She denies chest pain or palpitations. [facility] Medical History (Updated 05/02/22 @ 03:[address] Ainsley Culver MD) Anxiety Colonoscopy planned Emphysema lung Incontinence Knee injury Phlebitis and thrombophlebitis of superficial vessels of lower extremities, bilateral Home Medications acetaminophen 500 mg tablet 1,000 mg PO BID PRN Pain 03/09/15 [History Last Taken 10/23/18] albuterol sulfate 90 mcg/actuation aerosol inhaler 1 puff inhalation Q4H PRN PRN Sob &/Or Wheezing 12/31/16 [History Last Taken 10/21/18] buspirone 10 mg tablet 10 mg PO TID 08/27/18 [History Last Taken 10/23/18] esomeprazole magnesium 20 mg capsule,delayed release 40 mg PO DAILY 10/23/18 [History Last Taken 10/23/18] clotrimazole-betamethasone 1 %-0.05 % topical cream 1 applic topical BID 2 weeks #45 grams 07/12/20 [Rx Last Taken Unknown] oxybutynin chloride 15 mg tablet,extended release 24 hr 15 mg PO DAILY 10/27/20 [History Last Taken Unknown] warfarin 1 mg tablet See Rx Instructions PO DAILY 10/27/20 [History Last Taken Unknown] fluticasone propionate 50 mcg/actuation nasal spray,suspension 2 spray inhalation DAILY PRN 11/02/21 [History Last Taken Unknown] guaifenesin 600 mg tablet, extended release 12 hr (Mucinex) 600 mg PO QDAY 11/02/21 [History Last Taken Unknown] magnesium 30 mg tablet 30 mg PO DAILY 11/02/21 [History Last Taken Unknown] polyethylene glycol 3350 17 gram/dose oral powder (Miralax) 17 g PO DAILY PRN 11/02/21 [History Last Taken Unknown] vibegron 75 mg tablet (Gemtesa) 75 mg PO DAILY 01/30/22 [History Last Taken Unknown] meclizine 25 mg tablet 25 mg PO TID PRN dizziness #30 tabs 05/02/22 [Rx Last Taken Unknown] Allergy/AdvReac Type Severity Reaction Status Date / Time latex AdvReac Rash Verified 05/01/22 23:14 Family History Father Lung cancer Surgical History History of hip replacement Hx of cholecystectomy Social History Smoking Status: Never smoker alcohol intake: never substance use type: does not use caffeine: Yes what type of physical activity do you participate in: none seatbelt use: always do you feel safe at home: Yes additional social history: - Max ROS ROS ED Constitutional Constitutional ED: Denies chills or fever(s) Eyes Eyes: Denies change in vision or discharge from eye(s) ENT ENT ED: Denies discharge from eye(s), rhinorrhea or sore throat Cardiovascular Cardiovascular: Denies chest pain or palpitations Respiratory/Chest Respiratory/Chest: Denies cough or dyspnea Gastrointestinal Gastrointestinal: Reports nausea; Denies abdominal pain, diarrhea or vomiting Genitourinary Genitourinary ED: Denies difficulty urinating or dysuria Musculoskeletal Musculoskeletal: Denies back pain or extremity pain Integumentary Denies Abrasions or rash Neurologic Neurologic: Denies headache(s) or weakness Allergic/Immunologic Allergic/Immunologic ED: Denies lip swelling or urticaria EXAM Physical Exam Const Vital Signs: 05/01/22 23:08 05/01/22 23:12 05/02/22 01:13 Temperature 97.7 F L Temperature Source Axillary Pulse Rate 65 79 Respiratory Rate 14 19 H Respiratory Effort Normal Non-Labored Respiratory Pattern Normal Blood Pressure 155/78 H 145/84 H Blood Pressure Mean 103 104 Pulse Ox 100 96 Oxygen Delivery Method Room Air Room Air 05/02/22 03:03 Temperature Temperature Source Pulse Rate 77 Respiratory Rate 16 Respiratory Effort Respiratory Pattern Blood Pressure 148/78 H Blood Pressure Mean 101 Pulse Ox 97 Oxygen Delivery Method Room Air Positive well nourished and well developed General Appearance ED: well developed HEENT Reports normocephalic and head/scalp atraumatic Eyes PERRL and EOMs intact bilaterally Neck supple Chest Wall inspection of chest normal and palpation of chest normal Resp normal respiratory effort and clear to auscultation bilaterally Cardio regular rate and regular rhythm GI normal to inspection, nondistended, normoactive bowel sounds Palpation: soft Extremity normal to inspection Neuro oriented x3 and no sensory deficits noted Sensorium / Orientation: alert Motor Exam: strength 5/5 throughout Psych mental status grossly normal Skin no rashes or lesions noted MDM MDM MDM Narrative Medical decision making narrative: EKG, chest x-ray, lab work obtained. Urinalysis ordered. CTA of the head and neck ordered. Lab Data Attestation: I reviewed the patient's lab results. Labs: Laboratory Results - last 24 hr 05/02/22 05/02/22 05/02/22 00:10 00:10 00:10 WBC 8.4 RBC 4.09 L Hgb 13.7 Hct 41.2 MCV 100.7 H MCH 33.5 H MCHC 33.3 RDW Std Deviation 47.8 H RDW Coeff of Sam 12.8 Plt Count 187 MPV 9.1 Immature Gran % (Auto) 0.200 Neut % (Auto) 73.8 H Lymph % (Auto) 16.1 L Bennett % (Auto) 7.0 Eos % (Auto) 2.5 Baso % (Auto) 0.4 Absolute Neuts (auto) 6.2 Absolute Lymphs (auto) 1.36 Nucleated RBC % 0 PT 21.7 H INR 1.9 Sodium 140 Potassium 3.7 Chloride 103 Carbon Dioxide 29.0 Anion Gap 8 BUN 5 L Creatinine 0.83 Estim Creat Clear Calc 50.27 Est GFR (MDRD) Af Amer 85 Est GFR (MDRD) Non-Af 70 BUN/Creatinine Ratio 6.0 L Glucose 97 Calcium 9.3 Troponin I High Sens 5 Urine Color Urine Clarity Urine pH Ur Specific [place] Urine Protein Urine Glucose (UA) Urine Ketones Urine Occult Blood Urine Nitrite Urine Bilirubin Urine Urobilinogen Ur Leukocyte Esterase Urine RBC Urine WBC Ur Squamous Epith Cells Urine Bacteria Urine Mucus 05/02/22 02:12 WBC RBC Hgb Hct MCV MCH MCHC RDW Std Deviation RDW Coeff of Sam Plt Count MPV Immature Gran % (Auto) Neut % (Auto) Lymph % (Auto) Bennett % (Auto) Eos % (Auto) Baso % (Auto) Absolute Neuts (auto) Absolute Lymphs (auto) Nucleated RBC % PT INR Sodium Potassium Chloride Carbon Dioxide Anion Gap BUN Creatinine Estim Creat Clear Calc Est GFR (MDRD) Af Amer Est GFR (MDRD) Non-Af BUN/Creatinine Ratio Glucose Calcium Troponin I High Sens Urine Color Yellow Urine Clarity Clear Urine pH 7.0 Ur Specific [place] 1.010 Urine Protein Negative Urine Glucose (UA) Normal Urine Ketones Negative Urine Occult Blood Negative Urine Nitrite Negative Urine Bilirubin Negative Urine Urobilinogen Normal Ur Leukocyte Esterase Negative Urine RBC 0 SEEN Urine WBC 0 SEEN Ur Squamous Epith Cells 0 SEEN Urine Bacteria 0 SEEN Urine Mucus 0 SEEN Radiography Chest X-Ray - ED: 1 View, Read by ED Physician and Chronic Changes Diagnostic Testing: Clinical Impression(s) from Imaging Studies Chest X-Ray 05/01/22 00:51 IMPRESSION: Chronic large hiatal hernia with adjacent left basilar atelectasis. Electronically Signed: Ole Velasquez MD at 1:57 EDT , Head/Neck CTA 05/02/22 23:36 IMPRESSION: 1. Cerebral atrophy and chronic small vessel white matter disease but no evidence of acute intracranial abnormality. 2. CTA head and neck with no acute arterial occlusive disease or other acute abnormality. 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 3. Multilevel cervical spondylosis, as described above. Electronically Signed: Ole Velasquez MD at 2:52 EDT , EKG Initial EKG: Attestation: I personally reviewed and interpreted this EKG as follows: Interpretation: Sinus Rhythm (Sinus at 68 bpm. Right bundle branch block noted. No acute ischemia.) Treatment and Re-Evaluation Narrative: CBC and chemistry studies unremarkable. INR is slightly subtherapeutic at 1.9. Urinalysis shows no sign of infection. EKG reveals no ischemia. Chest x-ray per my interpretation reveals chronic changes. Radiology comments on a large hiatal hernia. CTA of the head and neck revealed no acute occlusive disease. Chronic changes are noted. Nursing staff did note the patient was stable on her feet walking to the restroom and back. Patient now comments that she feels dizzy more when she quickly turns her head. We will try some Antivert to see if that helps her symptoms. I also recommended talking to her physician about a possible Holter monitor as she states she will occasionally feel like she is going to pass out when these episodes hit. Discharge Plan Triage Chief Complaint: Dizziness ED Provider: Ainsley Culver Dx/Rx/DC Orders Clinical Impression: Dizziness Instructions: ED Dizziness, Uncertain Cause Prescriptions: New meclizine 25 mg tablet 25 mg PO TID PRN (Reason: dizziness) Qty: 30 0RF No Action buspirone 10 mg tablet 10 mg PO TID clotrimazole-betamethasone 1-0.05 % cream 1 applic TOPICAL BID 14 Days Qty: 45 1RF oxybutynin chloride 15 mg tablet extended release 24hr 15 mg PO DAILY warfarin 1 mg tablet See Rx Instructions PO DAILY Rx Instructions: 2mg m-w-f, 2.5mg other days PO daily; guaifenesin [Mucinex] 600 mg tablet extended release 12hr 600 mg PO QDAY magnesium 30 mg tablet 30 mg PO DAILY polyethylene glycol 3350 [Miralax] 17 gram/dose powder 17 g PO DAILY PRN Gemtesa 75 mg tablet 75 mg PO DAILY acetaminophen 500 MG tablet 1,000 mg PO BID PRN (Reason: Pain) Label Comments: pain albuterol sulfate 1 INHALER inhaler 1 puff inhalation Q4H PRN PRN (Reason: Sob &/Or Wheezing) Label Comments: breathing esomeprazole magnesium 20 MG capsule 40 mg PO DAILY fluticasone propionate 50 mcg/actuation spray,suspension 2 spray inhalation DAILY PRN Primary Care Provider: True Vazquez Referrals: True Vazquez MD [Primary Care Provider] - 1 Week Activity Restrictions/Additional Instructions: As discussed, please consider talking to Dr. Vazquez about a Holter monitor. This would be a 48-hour heart monitor that may catch any episodes of dizziness and feeling as if you are going to pass out. Disposition Disposition: Home, Self Care
[2022-05-02 00:17] LABS: Absolute Lymphocyte Count 1.36 X10^3/uL (0.83-4.51); Absolute Neutrophil Count 6.2 X10^3/uL (2.0-7.7); Basophil# 0.03 X10^3/uL; Basophil% 0.4 % (0-1); Eosinophil# 0.21 X10^3/uL; Eosinophils% 2.5 % (0-5); Hematocrit 41.2 % (37-47); Hemoglobin 13.7 g/dL (12.0-15.0); Lymphocyte # 1.36 X10^3/ul (0.83-4.51); Lymphocyte % 16.1 % (19-41); Mean Corp Hgb Conc 33.3 g/dL (32-36); Mean Corpuscular Hgb 33.5 pg (27.0-32.0); Mean Corpuscular Volume 100.7 fL (81-99); Mean Platelet Vol. 9.1 fl (6.2-12.0); Monocyte# 0.59 X10^3/uL; NRBC Flagged by Analyzer 0 % (0-5); Neutrophil # 6.23 X10^3/uL (2.7-7.7); Neutrophil % 73.8 % (47-70); Platelet Count 187 K/mm3 (150-450); RBC Distribution Width CV 12.8 % (11.6-14.6); RBC Distribution Width SD 47.8 fl (35.1-43.9); Red Blood Count 4.09 M/mm3 (4.2-5.4); White Blood Count 8.4 K/mm3 (4.4-11.0)
[2022-05-02] MEDS: 0.9% Normal Saline 1,000 ML 150 ML IV (00:24)
[2022-05-02 00:26] LABS: International Normalized Ratio 1.9; Prothrombin Time (Protime)PT. 21.7 SECONDS (11.7-14.9)
[2022-05-02 00:41] LABS: Anion Gap 8 (5-15); BUN 5 mg/dL (7-18); Calcium,Total 9.3 mg/dL (8.5-10.1); Chloride 103 mmol/L (98-107); Creatinine, Serum 0.83 mg/dL (0.55-1.02); EST Glomerular Filtration Rate 70 mL/min (>60); Est Glom Filt Rate - Afr Amer 85 mL/min (>60); Estimated Creatinine Clearance 50.27 ml/min; Glucose 97 mg/dL (74-106); Potassium 3.7 mmol/L (3.5-5.1); Sodium Level 140 mmol/L (136-145); Troponin-I HS 5 pg/mL (3.0-54.0)
[2022-05-02 01:13] VITALS: BP 145/84; PULSE 79; RESP 19; O2SAT 96
[2022-05-02 02:24] LABS: Bacteria 0 SEEN /hpf (None Seen); Mucous, Urine 0 SEEN /hpf (<or=2+); Red Blood Cells-Urine 0 SEEN /hpf (0-5); Squamous Epithelial Cells - UA 0 SEEN /hpf (5-10); White Blood Cells 0 SEEN /hpf (0-5)
[2022-05-02 02:27] LABS: Color, Urine Yellow (Yellow); Glucose, Dipstick Normal (Normal); Ketone-Dipstick Negative (Negative); Leukocyte Esterase-Dipstick Negative /ul (Negative); Nitrite-Dipstick Negative (Negative); Occult Blood-Urine Negative /ul (Negative); Protein-Dipstick Negative (Negative); Urine Bilirubin Dipstick Negative (Negative); Urine Clarity Clear (Clear); Urine Urobilinogen Normal (Normal)
[2022-05-02 03:03] VITALS: BP 148/78; PULSE 77; RESP 16; O2SAT 97
[2022-05-02] MEDS: Meclizine HCl 25 MG Tablet PO (03:16)
[2022-05-02 03:25] VITALS: BP 144/78; PULSE 83; RESP 18; O2SAT 98
--- NOTE | 2022-05-02 23:36 | CT_ITS ---
INDICATION: dizziness EXAMINATION: CTA Head and Neck W/ Contrast Injection (and W/O Contrast Images if performed) TECHNIQUE: Routine unenhanced CT brain performed then CTA of the head and neck was performed with post processing of the angiographic images for volumetric reconstructions. Nascet criteria using the distal ICAs for comparison were used for evaluation of stenoses. 2-D and 3-D reconstructions were reviewed. A radiation dose optimization technique was used for this scan. IV Contrast dosage and agent: 100 mL [id number] COMPARISON: Brain MRI from 03/10/2015 FINDINGS: --BRAIN: BRAIN PARENCHYMA: No intra- or extra-axial hemorrhage. No evidence of acute major territorial infarct. No intracranial mass or mass effect. Chronic bilateral deep cerebral white matter lucencies are present. Chronic cerebral involutional changes also noted. CSF SPACES: Prominent cerebral sulci and extraaxial spaces secondary to involutional changes. No hydrocephalus. Basal cisterns are patent. CALVARIUM, SKULL BASE, PARANASAL SINUSES AND MASTOID AIR CELLS: Calvarium is intact. Mild sinus mucosal thickening. Mastoid air cells are well-pneumatized. ORBITS: No acute findings, as visualized. --NECK: AORTIC ARCH AND BRANCHES: Mild calcified atherosclerotic plaque with no aneurysm, dissection, occlusion or significant stenosis. RIGHT CCA: No occlusion, significant stenosis or dissection. RIGHT ICA: No occlusion, significant stenosis or dissection. LEFT CCA: No occlusion, significant stenosis or dissection. LEFT ICA: No occlusion, significant stenosis or dissection. RIGHT VERTEBRAL ARTERY: No occlusion, significant stenosis or dissection. Somewhat hypoplastic right vertebral artery. LEFT VERTEBRAL ARTERY: No occlusion, significant stenosis or dissection. Dominant left vertebral artery. NECK SOFT TISSUES: No acute findings. LUNG APICES: Clear. BONES: Multilevel discogenic degenerative changes and facet arthropathy along cervical spine with mild reversal cervical lordosis and chronic-appearing grade 1 anterolisthesis of C2 over C3 and C3 over C4. No acute fracture or traumatic subluxation. Degenerative changes resulting in multilevel mild cervical spinal canal stenosis with bilateral neural foraminal stenosis of varying severity. --HEAD: --Anterior circulation: ICAs: Patent bilaterally with calcified plaque but no significant stenosis. ACAs: No significant stenosis at the visualized segments. ACOM: Present. MCAs: No significant stenosis at the visualized segments. --Posterior circulation: PCOMs: Patent on the right, supplying right posterior cerebral artery. Absent on the left. security system engineer: Congenital hypoplasia right P1 segment. Remainder of patent right posterior cerebral artery with no significant stenosis, supplied by persistent right posterior communicating artery (persistent circulation variant). No significant stenosis left posterior cerebral artery. BASILAR ARTERY: No significant stenosis. VERTEBRAL ARTERIES: Dominant left vertebral artery supplies the basilar artery. Hypoplastic right vertebral artery terminates into a patent right posterior inferior cerebellar artery (anatomic variant). Patent left PICA also noted. No evidence of intracranial aneurysm or vascular malformation. CT/CTA Head AND Neck W/ Contrast IMPRESSION: 1. Cerebral atrophy and chronic small vessel white matter disease but no evidence of acute intracranial abnormality. 2. CTA head and neck with no acute arterial occlusive disease or other acute abnormality. 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 3. Multilevel cervical spondylosis, as described above. Electronically Signed: Ole Velasquez MD at 2:52 EDT ,
== END 2022-05-02 03:26 | disposition home or self-care (01) ==
PROVIDERS: Emergency Provider Emergency Medicine; PCP Family Medicine; Visit Provider Emergency Medicine
DX: R42 Dizziness and giddiness (principal); J43.9 Emphysema, unspecified; N39.0 Urinary tract infection, site not specified; Z79.01 Long term (current) use of anticoagulants; Z79.899 Other long term (current) drug therapy
CPT/HCPCS: 70496; 70498; 71045; 80048; 81001; 84484; 85025; 85610; 93005; 96360; 96361; 99285; J7030; Q9967; A4216

== ENCOUNTER → 2022-08-08 | Outpatient (CLI) | payer MEDICARE, SELFPAY ==
[2022-08-08 17:55] LABS: Absolute Lymphocyte Count 1.54 X10^3/uL (0.83-4.51); Absolute Neutrophil Count 3.9 X10^3/uL (2.0-7.7); Basophil# 0.03 X10^3/uL; Basophil% 0.5 % (0-1); Eosinophils% 3.3 % (0-5); Hematocrit 39.5 % (37-47); Hemoglobin 12.8 g/dL (12.0-15.0); Lymphocyte # 1.54 X10^3/ul (0.83-4.51); Lymphocyte % 25.2 % (19-41); Mean Corp Hgb Conc 32.4 g/dL (32-36); Mean Corpuscular Hgb 33.7 pg (27.0-32.0); Mean Corpuscular Volume 103.9 fL (81-99); Mean Platelet Vol. 9.4 fl (6.2-12.0); Monocyte# 0.46 X10^3/uL; Monocyte% 7.5 % (0-10); NRBC Flagged by Analyzer 0.3 % (0-5); Neutrophil # 3.86 X10^3/uL (2.7-7.7); Neutrophil % 63.2 % (47-70); Platelet Count 248 K/mm3 (150-450); RBC Distribution Width CV 13.2 % (11.6-14.6); RBC Distribution Width SD 50.6 fl (35.1-43.9); White Blood Count 6.1 K/mm3 (4.4-11.0)
[2022-08-08 18:13] LABS: Vitamin B12 458 pg/mL (211-911); Vitamin D,25 Hydroxy 50.9 ng/mL
[2022-08-08 18:21] LABS: Erythrocyte Sedimentation Rate 5 mm/hr (0-30)
[2022-08-08 18:36] LABS: ALB/GLOB Ratio 1.4 RATIO (0.9-2.4); AST(SGOT) 12 U/L (15-37); Alanine Aminotransfer ALT/SGPT 15 U/L (13-56); Albumin, Serum 3.7 g/dL (3.2-5.0); Alkaline Phosphatase 68 U/L (45-117); Anion Gap 6 (5-15); BUN 6 mg/dL (7-18); BUN/Creat Ratio 7.2 RATIO (10-20); CRP 4.39 mg/L (0.0-3.0); Calcium,Total 8.5 mg/dL (8.5-10.1); Chloride 103 mmol/L (98-107); Creatinine, Serum 0.84 mg/dL (0.55-1.02); EST Glomerular Filtration Rate 70 mL/min (>60); Est Glom Filt Rate - Afr Amer 84 mL/min (>60); Ferritin 12 ng/mL (8-252); Globulin 2.7 g/dL (2.2-4.2); Glucose 97 mg/dL (74-106); Iron 47 ug/dL (50-170); Potassium 4.2 mmol/L (3.5-5.1); Protein, Total 6.4 g/dL (6.4-8.2); Rheumatoid Factor < 10.0 IU/mL (<15); Sodium Level 137 mmol/L (136-145); Thyroid Stim Hormone (TSH) 1.28 uIU/mL (0.358-3.74)
== END | disposition home or self-care (01) ==
LOC: MFPLAB 15:04
PROVIDERS: PCP Family Medicine; Referring Provider Family Medicine; Visit Provider Family Medicine
DX: M79.606 Pain in leg, unspecified (principal); M81.0 Age-related osteoporosis without current pathological fracture; E53.8 Deficiency of other specified B group vitamins; E55.9 Vitamin D deficiency, unspecified; F41.1 Generalized anxiety disorder; M79.10 Myalgia, unspecified site
CPT/HCPCS: 36415; 80053; 81291; 82306; 82330; 82607; 82728; 83540; 83735; 83970; 84443; 85025; 85652; 86140; 86431

== ENCOUNTER → 2022-10-04 | Outpatient (CLI) | payer MEDICARE, SELFPAY ==
--- NOTE | 2022-10-04 10:31 | BI_ITS ---
MAMMOGRAPHY - BILATERAL SCREENING REASON FOR EXAM: Female, 77 years old. Routine annual screening examination. PERTINENT HISTORY: Non-contributory. TECHNIQUE: Digital bilateral breast mely (3D mammographic acquisition) in the CC and MLO projections. 2-D mediolateral oblique (MLO) and craniocaudad (CC) views of both breasts were obtained. CAD: Full Field Digital Mammography with Computer Added Detection was performed. COMPARISON: Comparison is made with prior study dated 09/01/2020 and 08/26/2019. FINDINGS: Breast Composition: The breasts are heterogeneously dense, which may obscure small masses. There are no dominant masses or suspicious calcifications. No other significant abnormalities are identified. There has been no significant change since the prior study. BI/SCRN MAMM (CAD)W/MELY BILAT IMPRESSION: Stable bilateral screening mammogram. Yearly follow-up mammogram recommended. (A) ASSESSMENT CATEGORY: BIRADS Category 2: Benign. A letter regarding these results will be sent to the patient by the facility within 30 days. Approximately 10% of breast cancers are not detected by mammography. A normal mammogram should not delay biopsy of a clinically suspicious abnormality. [id number] Electronically Signed: Bruce Gore MD at 13:10 EST ,
--- NOTE | 2022-10-04 10:36 | BD_ITS ---
STUDY: DUAL ENERGY X-RAY ABSORPTIOMETRY / DXA REASON FOR EXAM: Female, 77 years old. [id number] TECHNIQUE: Bone Mineral Density (BMD) measurements of both forearms. were obtained. COMPARISON: Comparison is made with prior study dated 09/01/2020. FINDINGS: Right Forearm: g/cm2 (0.383) / T-score (-3.6) / Z-score (10.7) Left Forearm: g/cm2 (0.403) / T-score (-3.3) / Z-score (-0.4) BD/Dexa Bone Density/Append Skel IMPRESSION: The patient is considered osteoporotic as outlined below according to World Dat Organization (WHO) criteria with a high fracture risk. There has been worsening of bone density since the previous examination. Reference Information: The T-score is the number of standard deviations above or below the standard which is normal for young adults at their peak bone mineral density. The World Health Organization (WHO) interprets the T-scores as follows: Above -1 Normal bone density Between -1 and -2.5 Osteopenia Equal to / or below -2.5 Osteoporosis As a practical clinical guideline, osteopenia may be graded as follows: Mild -1 through -1.5 Moderate -1.6 through -2.0 Severe -2.1 through -2.4 The Z-score is the number of standard deviations above or below age-matched controls. A Z-score of less than -1.5 would be considered abnormal. References: 1. NIH Osteoporosis and Related Bone Diseases www osteo.org 2. International Society for Clinical Densitometry www iscd.org 3. National Osteoporosis Foundation www nof.org Electronically Signed: Bruce Gore MD at 16:52 EST ,
== END | disposition home or self-care (01) ==
LOC: OPBD 10:29
PROVIDERS: PCP Family Medicine; Visit Provider Family Medicine
DX: Z12.31 Encounter for screening mammogram for malignant neoplasm of breast (principal); M81.0 Age-related osteoporosis without current pathological fracture
CPT/HCPCS: 77063; 77067; 77080; 77081

== ENCOUNTER → 2022-10-17 | Outpatient (CLI) | payer MEDICARE, SELFPAY ==
--- NOTE | 2022-10-17 13:20 | RAD_ITS ---
STUDY: XR Knee 3 Views 10/17/2022 4:52 PM REASON FOR EXAM: Female, 77 years old. KNEE PAIN TECHNIQUE: XR Knee 3 Views RIGHT COMPARISON: None FINDINGS: Normal visualized distal femur. Normal visualized proximal tibia and fibula. Normal proximal tibiofibular articulation. There is mild degenerative arthrosis of the medial femorotibial compartment. There is mild degenerative arthrosis of the lateral femorotibial compartment. There is mild degenerative arthrosis of the patellofemoral articulation. The soft tissue structures are unremarkable. RAD/Knee 3 Views IMPRESSION: Degenerative arthrosis. Electronically Signed: Doc Lal MD at 16:54 EST ,
== END | disposition home or self-care (01) ==
LOC: MTRAD 13:13
PROVIDERS: PCP Family Medicine; Referring Provider Family Medicine; Visit Provider Family Medicine
DX: M25.569 Pain in unspecified knee (principal)
CPT/HCPCS: 73562

== ENCOUNTER → 2023-01-01 | Outpatient (CLI) | payer MEDICARE, SELFPAY ==
[2023-01-01 16:05] LABS: Hematocrit 39.1 % (37-47); Hemoglobin 12.6 g/dL (12.0-15.0); Mean Corp Hgb Conc 32.2 g/dL (32-36); Mean Corpuscular Hgb 33.7 pg (27.0-32.0); Mean Corpuscular Volume 104.5 fL (81-99); Mean Platelet Vol. 9.7 fl (6.2-12.0); Platelet Count 216 K/mm3 (150-450); RBC Distribution Width CV 13.1 % (11.6-14.6); RBC Distribution Width SD 49.7 fl (35.1-43.9); Red Blood Count 3.74 M/mm3 (4.2-5.4); White Blood Count 6.3 K/mm3 (4.4-11.0)
[2023-01-01 16:11] LABS: International Normalized Ratio 1.9; Prothrombin Time (Protime)PT. 22.1 SECONDS (11.7-14.9)
[2023-01-01 16:21] LABS: Erythrocyte Sedimentation Rate 6 mm/hr (0-30)
[2023-01-01 16:30] LABS: ALB/GLOB Ratio 1.2 RATIO (0.9-2.4); AST(SGOT) 14 U/L (15-37); Alanine Aminotransfer ALT/SGPT 16 U/L (13-56); Albumin, Serum 3.6 g/dL (3.2-5.0); Alkaline Phosphatase 63 U/L (45-117); Anion Gap 7 (5-15); BUN 6 mg/dL (7-18); BUN/Creat Ratio 8.8 RATIO (10-20); CRP 4.54 mg/L (0.0-3.0); Calcium,Total 8.8 mg/dL (8.5-10.1); Chloride 103 mmol/L (98-107); Creatinine, Serum 0.68 mg/dL (0.55-1.02); EST Glomerular Filtration Rate 88 mL/min (>60); Est Glom Filt Rate - Afr Amer 107 mL/min (>60); Ferritin 21 ng/mL (8-252); Globulin 2.9 g/dL (2.2-4.2); Glucose 80 mg/dL (74-106); Iron 76 ug/dL (50-170); Potassium 4.1 mmol/L (3.5-5.1); Protein, Total 6.5 g/dL (6.4-8.2); Sodium Level 137 mmol/L (136-145)
[2023-01-01 17:39] LABS: Vitamin B12 327 pg/mL (211-911)
== END | disposition home or self-care (01) ==
LOC: MFPLAB 11:36
PROVIDERS: PCP Family Medicine; Visit Provider Family Medicine
DX: R60.0 Localized edema (principal); I82.409 Acute embolism and thrombosis of unspecified deep veins of unspecified lower extremity; D64.9 Anemia, unspecified; M79.7 Fibromyalgia
CPT/HCPCS: 36415; 80053; 82607; 82728; 83540; 85027; 85610; 85652; 86140

== ENCOUNTER → 2023-04-10 | Outpatient (CLI) | payer MEDICARE, SELFPAY ==
[2023-04-10 09:34] LABS: Mucous, Urine 0 SEEN /hpf (<or=2+); Squamous Epithelial Cells - UA 0 SEEN /hpf (5-10)
[2023-04-10 10:33] LABS: Anion Gap 8 (5-15); BUN 6 mg/dL (7-18); BUN/Creat Ratio 8.7 RATIO (10-20); Calcium,Total 8.7 mg/dL (8.5-10.1); Chloride 103 mmol/L (98-107); Creatinine, Serum 0.69 mg/dL (0.55-1.02); EST Glomerular Filtration Rate 88 mL/min (>60); Est Glom Filt Rate - Afr Amer 106 mL/min (>60); Glucose 108 mg/dL (74-106); Sodium Level 135 mmol/L (136-145)
[2023-04-10 12:54] LABS: Color, Urine Yellow (Yellow); Glucose, Dipstick Normal (Normal); Ketone-Dipstick Negative (Negative); Leukocyte Esterase-Dipstick 500 /ul (Negative); Nitrite-Dipstick Positive (Negative); Occult Blood-Urine 50 /ul (Negative); Protein-Dipstick Negative (Negative); Urine Bilirubin Dipstick Negative (Negative); Urine Clarity Sl. Cloudy (Clear); Urine Urobilinogen 1 mg/dl (Normal)
[2023-04-10 13:10] LABS: Bacteria 2+ /hpf (None Seen); Red Blood Cells-Urine 0-5 SEEN /hpf (0-5); White Blood Cells 10-25 SEEN /hpf (0-5)
== END | disposition home or self-care (01) ==
LOC: MFPLAB 09:33
PROVIDERS: PCP Family Medicine; Visit Provider Family Medicine
DX: R30.0 Dysuria (principal); M79.7 Fibromyalgia
CPT/HCPCS: 36415; 80048; 81001; 87086; 87088; 87186

== ENCOUNTER → 2023-08-09 | Outpatient (CLI) | payer MEDICARE, SELFPAY ==
[2023-08-09 17:37] LABS: Hematocrit 41.3 % (37-47); Hemoglobin 12.9 g/dL (12.0-15.0); Mean Corp Hgb Conc 31.2 g/dL (32-36); Mean Corpuscular Hgb 30.9 pg (27.0-32.0); Mean Platelet Vol. 9.6 fl (6.2-12.0); Platelet Count 275 K/mm3 (150-450); RBC Distribution Width CV 13.5 % (11.6-14.6); RBC Distribution Width SD 49.7 fl (35.1-43.9); Red Blood Count 4.17 M/mm3 (4.2-5.4); White Blood Count 6.8 K/mm3 (4.4-11.0)
[2023-08-09 18:03] LABS: Vitamin B12 379 pg/mL (211-911); Vitamin D,25 Hydroxy 88.9 ng/mL
[2023-08-09 18:11] LABS: Anion Gap 6 (5-15); BUN 7 mg/dL (7-18); BUN/Creat Ratio 8.1 RATIO (10-20); Calcium,Total 8.8 mg/dL (8.5-10.1); Chloride 106 mmol/L (98-107); Cholesterol 160 mg/dL (200); Creatinine, Serum 0.87 mg/dL (0.55-1.02); EST Glomerular Filtration Rate 67 mL/min (>60); Est Glom Filt Rate - Afr Amer 81 mL/min (>60); Ferritin 8 ng/mL (8-252); Glucose 81 mg/dL (74-106); High Density Lipoprotein 70 mg/dL; Iron 29 ug/dL (50-170); Sodium Level 140 mmol/L (136-145); Thyroid Stim Hormone (TSH) 1.08 uIU/mL (0.358-3.74); Triglycerides 133 mg/dL; Very Low Density Lipoprotein 27 mg/dL (5-40)
== END | disposition home or self-care (01) ==
LOC: MFPLAB 14:51
PROVIDERS: PCP Family Medicine; Visit Provider Family Medicine
DX: Z13.220 Encounter for screening for lipoid disorders (principal); M81.0 Age-related osteoporosis without current pathological fracture; D64.9 Anemia, unspecified; E53.8 Deficiency of other specified B group vitamins
CPT/HCPCS: 36415; 80048; 80061; 82306; 82607; 82728; 83540; 84443; 85027

== ENCOUNTER → 2024-02-05 | Outpatient (CLI) | payer MEDICARE, SELFPAY ==
--- NOTE | 2024-02-05 14:02 | RAD_ITS ---
STUDY: X-RAY - LEFT WRIST REASON FOR EXAM: Female, 78 years old. Fall. TECHNIQUE: 4 views of the left wrist were obtained. COMPARISON: None. FINDINGS: There is diffuse osteopenia. Intact visualized distal radius and ulna. There is nonspecific sclerosis in the region of the ulnar styloid, which could be the sequelae of previous trauma. There is mild degenerative arthrosis of the radiocarpal, intercarpal, and carpometacarpal joints. Intact carpal bones. Normal visualized metacarpal bones. There are atherosclerotic calcifications. There is no demonstrated acute fracture. RAD/Wrist min 3 Views IMPRESSION: Mild degenerative arthrosis of the radiocarpal, intercarpal, and carpometacarpal joints. Nonspecific sclerosis in the region of the ulnar styloid, which could be the sequelae of previous trauma. Electronically Signed: Kevin Borjas MD at 14:36 EDT ,
== END | disposition home or self-care (01) ==
LOC: MTRAD 13:56
PROVIDERS: PCP Family Medicine; Referring Provider Family Medicine; Visit Provider Family Medicine
DX: M25.532 Pain in left wrist (principal)
CPT/HCPCS: 73110

== ENCOUNTER → 2024-06-03 | Outpatient (CLI) | payer MEDICARE, SELFPAY ==
[2024-06-03 15:56] LABS: Anion Gap 7 (5-15); BUN 7 mg/dL (7-18); BUN/Creat Ratio 8.5 RATIO (10-20); Calcium,Total 9.5 mg/dL (8.5-10.1); Chloride 106 mmol/L (98-107); Creatinine, Serum 0.82 mg/dL (0.55-1.02); EST Glomerular Filtration Rate 71 mL/min (>60); Est Glom Filt Rate - Afr Amer 86 mL/min (>60); Glucose 94 mg/dL (74-106); Potassium 4.1 mmol/L (3.5-5.1); Sodium Level 139 mmol/L (136-145)
== END | disposition home or self-care (01) ==
LOC: MTLAB 13:00
PROVIDERS: PCP Family Medicine; Referring Provider Urology; Visit Provider Urology
DX: N39.44 Nocturnal enuresis (principal)
CPT/HCPCS: 36415; 80048

== ENCOUNTER → 2024-06-12 | Outpatient (CLI) | payer MEDICARE, SELFPAY ==
[2024-06-12 14:13] LABS: Ionized Calcium Order ORDER TUBE
[2024-06-12 15:27] LABS: Absolute Lymphocyte Count 1.08 X10^3/uL (0.83-4.51); Absolute Neutrophil Count 6.6 X10^3/uL (2.0-7.7); Basophil# 0.02 X10^3/uL; Basophil% 0.2 % (0-1); Eosinophil# 0.13 X10^3/uL; Eosinophils% 1.5 % (0-5); Hematocrit 38.7 % (37-47); Hemoglobin 12.4 g/dL (12.0-15.0); Lymphocyte # 1.08 X10^3/ul (0.83-4.51); Lymphocyte % 12.7 % (19-41); Mean Corpuscular Volume 96.8 fL (81-99); Mean Platelet Vol. 9.1 fl (6.2-12.0); Monocyte# 0.62 X10^3/uL; Monocyte% 7.3 % (0-10); NRBC Flagged by Analyzer 0 % (0-5); Neutrophil # 6.62 X10^3/uL (2.7-7.7); Neutrophil % 78.1 % (47-70); POSITIVE COUNT YES; Platelet Count 238 K/mm3 (150-450); RBC Distribution Width CV 12.8 % (11.6-14.6); RBC Distribution Width SD 46.2 fl (35.1-43.9); RET-HE 32.8 pg (30-35); Reticulocyte Count 1.58 % (0.5-1.5); White Blood Count 8.5 K/mm3 (4.4-11.0)
[2024-06-12 15:46] LABS: ALB/GLOB Ratio 1.3 RATIO (0.9-2.4); AST(SGOT) 37 U/L (15-37); Alanine Aminotransfer ALT/SGPT 34 U/L (13-56); Albumin, Serum 3.7 g/dL (3.2-5.0); Alkaline Phosphatase 71 U/L (45-117); Anion Gap 4 (5-15); BUN 15 mg/dL (7-18); BUN/Creat Ratio 18.2 RATIO (10-20); Calcium,Total 9.5 mg/dL (8.5-10.1); Chloride 102 mmol/L (98-107); Cholesterol 143 mg/dL (200); Creatinine, Serum 0.82 mg/dL (0.55-1.02); EST Glomerular Filtration Rate 71 mL/min (>60); Est Glom Filt Rate - Afr Amer 86 mL/min (>60); Ferritin 23 ng/mL (8-252); Globulin 2.9 g/dL (2.2-4.2); Glucose 98 mg/dL (74-106); High Density Lipoprotein 68 mg/dL; Iron 36 ug/dL (50-170); Phosphorus 4.9 mg/dL (2.5-4.9); Potassium 4.2 mmol/L (3.5-5.1); Protein, Total 6.6 g/dL (6.4-8.2); Sodium Level 138 mmol/L (136-145); Triglycerides 161 mg/dL; Very Low Density Lipoprotein 32 mg/dL (5-40)
[2024-06-12 15:51] LABS: Ionized Calcium 4.87 mg/dL (4.36-5.20)
[2024-06-12 15:52] LABS: Vitamin B12 1840 pg/mL (211-911); Vitamin D,25 Hydroxy 71.2 ng/mL
[2024-06-12 16:15] LABS: International Normalized Ratio 1.6; Prothrombin Time (Protime)PT. 18.5 SECONDS (11.7-14.9)
== END | disposition home or self-care (01) ==
PROVIDERS: PCP Family Medicine; Referring Provider Urology; Visit Provider Urology
DX: N39.44 Nocturnal enuresis (principal); I82.409 Acute embolism and thrombosis of unspecified deep veins of unspecified lower extremity; D64.9 Anemia, unspecified; M81.0 Age-related osteoporosis without current pathological fracture
CPT/HCPCS: 36415; 80053; 80061; 82306; 82330; 82607; 82728; 83540; 83735; 83970; 84100; 84443; 85025; 85045; 85610

== ENCOUNTER 2024-09-21 07:08 | Emergency (ER) | payer MEDICARE, SELFPAY ==
[2024-09-21 07:10] VITALS: BP 164/84; PULSE 95; RESP 20; TEMP 36.8; O2SAT 91
[2024-09-21 07:13] VITALS: BMI 35.6
--- NOTE | 2024-09-21 07:21 | RAD_ITS ---
PROCEDURE: CHEST PA AND LATERAL REASON FOR EXAM: Cough TECHNIQUE: Single frontal image including the chest and abdomen. COMPARISON: Reviewed. FINDINGS: The cardiothymic contour is normal. Patchy left base opacities are unchanged. Bowel gas pattern is normal. No evidence of bowel obstruction or free air. The bones are unremarkable. No radiopaque foreign body is identified. RAD/Chest PA and Lateral IMPRESSION: Stable opacities at the left base are nonspecific. Reading [facility]
--- NOTE | 2024-09-21 07:23 | EX.ED.GENINJ ---
HPI History of Present Illness Chief Complaint: Nausea/Vomiting Narrative Narrative: Chief complaint and HPI: Fever, chills, nausea. 79-year-old female with past medical history of iron deficiency anemia presents for evaluation of fever, chills, nausea. Onset of symptoms this morning. Patient states this morning she woke up with bodyaches, nausea, symptomatic fever, chills. She states at baseline she has postnasal drip. She denies any cough, shortness of breath, chest pain, abdominal pain, emesis. States she had a couple episode of nonbloody diarrhea several days ago. Denies any dysuria, hematuria. Patient states she called EMS today because she could not get her chills under control. Has been eating and drinking well until this morning where she has a decreased appetite. Review of systems: See HPI Medications: As listed on the chart Allergies: As listed on the chart PFSH: Per chart Vital signs: As listed on the chart. Reviewed. Physical exam: Gen: A&O x3, NAD Head: Normocephalic, atraumatic Eyes: No sclera icterus, conjunctiva clear, PERRL, EOMI ENT: Mildly dry mucous membranes, posterior oropharynx unremarkable Neck: Trachea midline, No JVD, Full ROM, No meningismus CV: RRR, no murmurs, no peripheral edema Resp: Lungs CTA BL, no w/r/c GI: Abd soft, non-distended, non-tender, no r/r/g Musc: Full ROM, no deformity Skin: Warm, dry, no rash Neuro: Alert, oriented, grossly intact, sensation intact Psych: Cooperative, appropriate mood and affect [facility] Medical History Knee injury Incontinence Phlebitis and thrombophlebitis of superficial vessels of lower extremities, bilateral Emphysema lung Anxiety Colonoscopy planned Home Medications ?Medication ?Instructions ?Recorded ?Last Taken ?Type acetaminophen 500 mg tablet 1,000 mg PO BID PRN Pain 03/09/15 10/23/18 History albuterol sulfate 90 mcg/actuation 1 puff inhalation Q4H PRN PRN Sob 12/31/16 10/21/18 History aerosol inhaler &/Or Wheezing buspirone 10 mg tablet 10 mg PO TID 08/27/18 10/23/18 History esomeprazole magnesium 20 mg 40 mg PO DAILY 10/23/18 10/23/18 History capsule,delayed release clotrimazole-betamethasone 1 1 applic topical BID 2 weeks #45 07/12/20 Unknown Rx %-0.05 % topical cream grams oxybutynin chloride 15 mg 15 mg PO DAILY 10/27/20 Unknown History tablet,extended release 24 hr warfarin 1 mg tablet See Rx Instructions PO DAILY 10/27/20 Unknown History fluticasone propionate 50 2 spray inhalation DAILY PRN 11/02/21 Unknown History mcg/actuation nasal spray,suspension guaifenesin 600 mg tablet, 600 mg PO QDAY 11/02/21 Unknown History extended release 12 hr (Mucinex) magnesium 30 mg tablet 30 mg PO DAILY 11/02/21 Unknown History polyethylene glycol 3350 17 17 g PO DAILY PRN 11/02/21 Unknown History gram/dose oral powder (Miralax) vibegron 75 mg tablet (Gemtesa) 75 mg PO DAILY 01/30/22 Unknown History meclizine 25 mg tablet 25 mg PO TID PRN dizziness #30 tabs 05/02/22 Unknown Rx mirabegron 50 mg tablet,extended 50 mg PO DAILY 06/06/22 Unknown History release 24 hr (Myrbetriq) ascorbate calcium (vitamin C) 500 500 mg PO DAILY 10/03/22 Unknown History mg tablet ferrous sulfate 325 mg (65 mg 325 mg PO DAILY 10/03/22 Unknown History iron) tablet prednisone 20 mg tablet 40 mg PO DAILY 10/03/22 Unknown History fesoterodine 4 mg tablet,extended 4 mg PO DAILY 11/14/23 Unknown History release 24 hr Allergy/AdvReac Type Severity Reaction Status Date / Time latex AdvReac Rash Verified 07/29/24 11:11 Family History Father Lung cancer Surgical History Hx of cholecystectomy History of hip replacement Social History Smoking Status: Never smoker alcohol intake: never substance use type: does not use caffeine: Yes what type of physical activity do you participate in: none seatbelt use: always do you feel safe at home: Yes additional social history: - Max EXAM Physical Exam Const Vital Signs: 09/21/24 07:10 09/21/24 09:08 09/21/24 10:08 Temperature 98.2 F 98.6 F Temperature Source Oral Oral Pulse Rate 95 108 H 107 H Respiratory Rate 20 H 20 H 23 H Blood Pressure 164/84 H 132/60 H 132/64 H Blood Pressure Mean 110 84 86 Pulse Ox 91 94 Oxygen Delivery Method Room Air MDM MDM MDM Narrative Medical decision making narrative: 79-year-old female with past medical history of iron deficiency anemia presents for evaluation of fever, chills, nausea. Differential diagnosis includes but is not limited to influenza, COVID, other viral illness, electrolyte abnormality, anemia. On presentation patient is afebrile although reports symptomatic fevers. She has not taken anything. Tylenol, NS bolus, Zofran ordered for symptoms. Laboratory workup ordered including chest x-ray. I do not feel that any further imaging is needed at this point. EKG and chest x-ray reviewed see below. CBC with mild leukocytosis 11.6. No anemia. CMP unremarkable without electrolyte abnormality or transaminitis. Troponin unremarkable. COVID, flu, influenza, RSV negative. UA positive for UTI. Urine culture obtained. Rocephin ordered. On chart review, patient has previous urine culture that grew out E. coli that is pansensitive. Patient will be discharged home on Keflex. Patient was able to ambulate in emergency department without difficulty. Patient is stable to discharge home. Follow-up with PCP. Patient is comfortable with discharging home. EKG: Interpreted by me/EM physician: EKG shows sinus tachycardia with right bundle branch block. Heart rate 110. No acute ischemic changes.On chart review, patient has a known history of a right bundle branch block. Diagnostic: Interpreted by me/EM physician: Chest x-ray without pneumonia, effusion, cardiomegaly, pneumothorax. Patient has patchy left base opacity which is unchanged from previous chest x-ray. Impression: 1. UTI Lab Data Labs: Laboratory Results - last 24 hr 09/21/24 09/21/24 07:41 09:42 WBC 11.6 H RBC 4.21 Hgb 13.0 Hct 40.4 MCV 96.0 MCH 30.9 MCHC 32.2 RDW Std Deviation 46.1 H RDW Coeff of Sam 13.2 Plt Count 169 MPV 9.5 Immature Gran % (Auto) 0.700 Neut % (Auto) 94.7 H Lymph % (Auto) 3.4 L Graves % (Auto) 1.0 Eos % (Auto) 0.0 Baso % (Auto) 0.2 Absolute Neuts (auto) 11.0 H Absolute Lymphs (auto) 0.39 L Nucleated RBC % 0 Sodium 137 Potassium 4.7 Chloride 105 Carbon Dioxide 25.0 Anion Gap 7 BUN 11 Creatinine 0.79 Estim Creat Clear Calc 63.59 Est GFR (MDRD) Af Amer 90 Est GFR (MDRD) Non-Af 74 BUN/Creatinine Ratio 14.0 Glucose 114 H Calcium 9.1 Total Bilirubin 0.60 AST 17 ALT 16 Alkaline Phosphatase 78 Troponin I High Sens 8 Total Protein 6.9 Albumin 3.6 Globulin 3.3 Albumin/Globulin Ratio 1.1 Urine Color Yellow Urine Clarity Cloudy Urine pH 6.5 Ur Specific [place] 1.010 Urine Protein 100 H Urine Glucose (UA) Normal Urine Ketones Negative Urine Occult Blood 150 H Urine Nitrite Negative Urine Bilirubin Negative Urine Urobilinogen Normal Ur Leukocyte Esterase 100 H Urine RBC 5-10 SEEN Urine WBC >100 SEEN Ur Squamous Epith Cells 0 SEEN Urine Bacteria 4+ Urine Mucus 0 SEEN Radiography Diagnostic Testing: Clinical Impression(s) from Imaging Studies Chest X-Ray 09/21/24 07:21 IMPRESSION: Stable opacities at the left base are nonspecific. [facility] T[facility] Chief Complaint: Nausea/Vomiting ED Provider: Haseeb Morales Dx/Rx/DC Orders Prescriptions: No Action buspirone 10 mg tablet 10 mg PO TID clotrimazole-betamethasone 1-0.05 % cream 1 applic TOPICAL BID 14 Days Qty: 45 1RF oxybutynin chloride 15 mg tablet extended release 24hr 15 mg PO DAILY warfarin 1 mg tablet See Rx Instructions PO DAILY Rx Instructions: 2mg m-w-, 2.5mg other days PO daily; guaifenesin [Mucinex] 600 mg tablet extended release 12hr 600 mg PO QDAY magnesium 30 mg tablet 30 mg PO DAILY polyethylene glycol 3350 [Miralax] 17 gram/dose powder 17 g PO DAILY PRN Gemtesa 75 mg tablet 75 mg PO DAILY Myrbetriq 50 mg tablet extended release 24 hr 50 mg PO DAILY ascorbate calcium (vitamin C) 500 mg tablet 500 mg PO DAILY ferrous sulfate 325 mg (65 mg iron) tablet 325 mg PO DAILY prednisone 20 mg tablet 40 mg PO DAILY Rx Instructions: 5 days fesoterodine 4 mg tablet extended release 24 hr 4 mg PO DAILY acetaminophen 500 MG tablet 1,000 mg PO BID PRN (Reason: Pain) Patient Comments: pain albuterol sulfate 1 INHALER inhaler 1 puff inhalation Q4H PRN PRN (Reason: Sob &/Or Wheezing) Patient Comments: breathing esomeprazole magnesium 20 MG capsule 40 mg PO DAILY fluticasone propionate 50 mcg/actuation spray,suspension 2 spray inhalation DAILY PRN meclizine 25 mg tablet 25 mg PO TID PRN (Reason: dizziness) Qty: 30 0RF Primary Care Provider: Davey Vazquez Referrals: Davey Vazquez MD [Primary Care Provider] - Print Language: Uzbek
[2024-09-21] MEDS: Ondansetron 4 MG/2 ML Vial IV (07:38)
[2024-09-21] MEDS: 0.9% Normal Saline (1000mL) 1,000 ML 1000 ML IV (07:38)
[2024-09-21 07:47] LABS: Absolute Lymphocyte Count 0.39 X10^3/uL (0.83-4.51); Basophil# 0.02 X10^3/uL; Basophil% 0.2 % (0-1); Hematocrit 40.4 % (37-47); Lymphocyte # 0.39 X10^3/ul (0.83-4.51); Lymphocyte % 3.4 % (19-41); Mean Corp Hgb Conc 32.2 g/dL (32-36); Mean Corpuscular Hgb 30.9 pg (27.0-32.0); Mean Platelet Vol. 9.5 fl (6.2-12.0); Monocyte# 0.12 X10^3/uL; NRBC Flagged by Analyzer 0 % (0-5); Neutrophil # 10.97 X10^3/uL (2.7-7.7); Neutrophil % 94.7 % (47-70); POSITIVE DIFFERENTIAL YES; Platelet Count 169 K/mm3 (150-450); RBC Distribution Width CV 13.2 % (11.6-14.6); RBC Distribution Width SD 46.1 fl (35.1-43.9); Red Blood Count 4.21 M/mm3 (4.2-5.4); White Blood Count 11.6 K/mm3 (4.4-11.0)
[2024-09-21] MEDS: Acetaminophen 325 MG Tablet 650 MG PO (08:23)
[2024-09-21 08:26] LABS: ALB/GLOB Ratio 1.1 RATIO (0.9-2.4); AST(SGOT) 17 U/L (15-37); Alanine Aminotransfer ALT/SGPT 16 U/L (13-56); Albumin, Serum 3.6 g/dL (3.2-5.0); Alkaline Phosphatase 78 U/L (45-117); Anion Gap 7 (5-15); BUN 11 mg/dL (7-18); Calcium,Total 9.1 mg/dL (8.5-10.1); Chloride 105 mmol/L (98-107); Creatinine, Serum 0.79 mg/dL (0.55-1.02); EST Glomerular Filtration Rate 74 mL/min (>60); Est Glom Filt Rate - Afr Amer 90 mL/min (>60); Estimated Creatinine Clearance 63.59 ml/min; Globulin 3.3 g/dL (2.2-4.2); Glucose 114 mg/dL (74-106); Potassium 4.7 mmol/L (3.5-5.1); Protein, Total 6.9 g/dL (6.4-8.2); Sodium Level 137 mmol/L (136-145); Troponin-I HS 8 pg/mL (3.0-54.0)
--- NOTE | 2024-09-21 08:58 | ED.RN ---
pt insisted that she could not walk next door use restroom/give urine sample. pt. assisted to bedside commode and was incontinent of urine and stool making urine sample unusable. Pt. was educated on a catheterization but refused urine until Dr. Rowe told her that was what was necessary for sample. Will cath pt. in a bit as pt. just peed.
[2024-09-21 09:08] VITALS: BP 132/60; PULSE 108; RESP 20
[2024-09-21 09:46] LABS: Mucous, Urine 0 SEEN /hpf (<or=2+); Squamous Epithelial Cells - UA 0 SEEN /hpf (5-10)
[2024-09-21 09:54] LABS: Color, Urine Yellow (Yellow); Glucose, Dipstick Normal (Normal); Ketone-Dipstick Negative (Negative); Leukocyte Esterase-Dipstick 100 /ul (Negative); Nitrite-Dipstick Negative (Negative); Occult Blood-Urine 150 /ul (Negative); Protein-Dipstick 100 mg/dl (Negative); Urine Bilirubin Dipstick Negative (Negative); Urine Clarity Cloudy (Clear); Urine Urobilinogen Normal (Normal); Urine pH 6.5 (5.0 - 8.0)
[2024-09-21 10:08] VITALS: BP 132/64; PULSE 107; RESP 23; TEMP 37; O2SAT 94
[2024-09-21 10:13] LABS: Bacteria 4+ /hpf (None Seen); White Blood Cells >100 SEEN /hpf (0-5)
[2024-09-21 10:16] LABS: Red Blood Cells-Urine 5-10 SEEN /hpf (0-5)
[2024-09-21] MEDS: Ceftriaxone 1 GM/50 ML BAG IV (10:41)
--- NOTE | 2024-09-21 11:07 | ED.RN ---
patient dressed herself with minimal assistance. ambulated without assistive device and patient reports feeling dizzy, otherwise ambulated fine. Patient is currently sitting in a chair with daughter beside her and reports nausea and a headache. Physician notified.
[2024-09-21 11:10] VITALS: BP 113/63; PULSE 101; RESP 20; TEMP 36.9; O2SAT 100
== END 2024-09-21 11:26 | disposition home or self-care (01) ==
PROVIDERS: Emergency Provider Surgery; PCP Family Medicine; Visit Provider Surgery
DX: N39.0 Urinary tract infection, site not specified (principal)
CPT/HCPCS: 71046; 80053; 81001; 84484; 85025; 87077; 87086; 87088; 87186; 87631; 93005; 96361; 96365; 96375; 99285; J2405

== ENCOUNTER → 2024-10-08 | Outpatient (CLI) | payer MEDICARE, SELFPAY ==
--- NOTE | 2024-10-08 12:58 | BI_ITS ---
PROCEDURE: SCRN MAMM (CAD)W/MELY BILAT REASON FOR EXAM: Screening mammogram TECHNIQUE: Bilateral diagnostic digital breast tomosynthesis with 2D and 3D images. Computer aided detection. COMPARISON: Prior exam(s) dated 10/04/2022 FINDINGS: The breasts are heterogeneously dense which may obscure small masses. There is a new 22 mm density in the medial, middle 3rd aspect of the left breast. Further workup is indicated. There are stable benign-appearing intramammary lymph nodes in the superior outer aspect of the left breast. No suspicious masses, suspicious cluster of calcifications, architectural distortion or secondary sign of malignancy is identified in the right breast. BI/SCRN MAMM (CAD)W/MELY BILAT IMPRESSION: BI-RADS 0: INCOMPLETE - NEED ADDITIONAL IMAGING EVALUATION. The patient should return for a rolled CC view and LM view of the left breast a s well as a spot compression CC view of the left breast ayo density. Ultrasound will also most likely be needed. Follow-up code: Additional Views obtained/call backs Reading Location: [id number]
--- NOTE | 2024-10-08 13:02 | BD_ITS ---
PROCEDURE: DEXA BONE DENSITY/APPEND SKEL REASON FOR EXAM: F, age 79 y/o . Postmenopausal. TECHNIQUE: DEXA scan of both the right and left forearms. COMPARISON: DEXA examination dated 10/04/2022 FINDINGS: T-SCORES Left forearm: Bone mineral density measures 0.461 grams/centimeter sq. T-score measures -3.9 and Z-score measures -0.6. There has been a significant decrease in the bone mineral density of the distal left forearm by 7.3% since the prior study dated 10/04/2022. Right forearm: Bone mineral density measures 0.443 grams/centimeter sq. T-score measures -4.2 and Z-score measures -0.9. There has been a significant decrease in the bone mineral density of the distal right forearm by 5.9% since the prior study dated 10/04/2022 FRAX* Results: 10 Year Probability of Fracture: Not calculated due to no measurable hip. *FRAX is a trademark of the [employer]'s [place] [facility] [employer], World Health Organization (WHO) Collaborating [place]. 1-The 10-year probability of fracture may be lower than reported if the patient has received treatment. 2-Major Osteoporotic Fracture: Clinical Spine, Forearm, Hip or Shoulder. The T-scores are also available for review on the [facility] PACS or by accessing the [facility] electronic medical record. BD/Dexa Bone Density/Append Skel IMPRESSION: OSTEOPOROSIS. Reading Location: [id number]
== END | disposition home or self-care (01) ==
LOC: OPBD 12:56
PROVIDERS: PCP Family Medicine; Referring Provider Family Medicine; Visit Provider Family Medicine
DX: N95.9 Unspecified menopausal and perimenopausal disorder (principal); Z12.31 Encounter for screening mammogram for malignant neoplasm of breast
CPT/HCPCS: 77063; 77067; 77081

== ENCOUNTER → 2024-10-21 | Outpatient (CLI) | payer MEDICARE, SELFPAY ==
--- NOTE | 2024-10-21 09:27 | BI_ITS ---
PROCEDURE: DIAG MAMM W/CAD, UNILAT; BREAST COMPLETE UNILATERAL; LT BRST UNILAT MELY ADD ON REASON FOR EXAM: 79-year-old female presents for follow-up of the left breast finding seen on the screening mammogram of 10/08/2024. no family history of breast cancer. TECHNIQUE: Left diagnostic digital breast tomosynthesis with 2D and 3D images. Computer aided detection. Also, targeted left breast ultrasound was performed. COMPARISON: 10/08/2024, 10/04/2022, 09/01/2020 FINDINGS: MAMMOGRAM: The breasts are heterogeneously dense which may obscure small masses. Follow-up examination performed of the left breast finding seen on the screening mammogram 10/08/2024. On the present examination, the asymmetry in the medial left breast at middle depth effaces and likely represents benign overlapping fibroglandular tissues. Otherwise, there are no suspicious findings in the left breast. ULTRASOUND: Ultrasound performed of the medial left breast demonstrates normal fibroglandular tissues. There are no suspicious masses or abnormal cystic elements. BI/DIAG MAMM W/CAD, UNILAT IMPRESSION: There is no mammographic or sonographic evidence of malignancy in the left [address]. BI-RADS 2: BENIGN. RECOMMEND ANNUAL MAMMOGRAPHIC SCREENING. Follow-up code: Routine Follow-up Reading Location: [id number]
--- NOTE | 2024-10-21 09:27 | BI_ITS ---
PROCEDURE: DIAG MAMM W/CAD, UNILAT; BREAST COMPLETE UNILATERAL; LT BRST UNILAT MELY ADD ON REASON FOR EXAM: 79-year-old female presents for follow-up of the left breast finding seen on the screening mammogram of 10/08/2024. no family history of breast cancer. TECHNIQUE: Left diagnostic digital breast tomosynthesis with 2D and 3D images. Computer aided detection. Also, targeted left breast ultrasound was performed. COMPARISON: 10/08/2024, 10/04/2022, 09/01/2020 FINDINGS: MAMMOGRAM: The breasts are heterogeneously dense which may obscure small masses. Follow-up examination performed of the left breast finding seen on the screening mammogram 10/08/2024. On the present examination, the asymmetry in the medial left breast at middle depth effaces and likely represents benign overlapping fibroglandular tissues. Otherwise, there are no suspicious findings in the left breast. ULTRASOUND: Ultrasound performed of the medial left breast demonstrates normal fibroglandular tissues. There are no suspicious masses or abnormal cystic elements. BI/Lt Brst Unilat Mely Add On IMPRESSION: There is no mammographic or sonographic evidence of malignancy in the left [address]. BI-RADS 2: BENIGN. RECOMMEND ANNUAL MAMMOGRAPHIC SCREENING. Follow-up code: Routine Follow-up Reading Location: [id number]
--- NOTE | 2024-10-21 10:36 | US_ITS ---
PROCEDURE: DIAG MAMM W/CAD, UNILAT; BREAST COMPLETE UNILATERAL; LT BRST UNILAT MELY ADD ON REASON FOR EXAM: 79-year-old female presents for follow-up of the left breast finding seen on the screening mammogram of 10/08/2024. no family history of breast cancer. TECHNIQUE: Left diagnostic digital breast tomosynthesis with 2D and 3D images. Computer aided detection. Also, targeted left breast ultrasound was performed. COMPARISON: 10/08/2024, 10/04/2022, 09/01/2020 FINDINGS: MAMMOGRAM: The breasts are heterogeneously dense which may obscure small masses. Follow-up examination performed of the left breast finding seen on the screening mammogram 10/08/2024. On the present examination, the asymmetry in the medial left breast at middle depth effaces and likely represents benign overlapping fibroglandular tissues. Otherwise, there are no suspicious findings in the left breast. ULTRASOUND: Ultrasound performed of the medial left breast demonstrates normal fibroglandular tissues. There are no suspicious masses or abnormal cystic elements. US/Breast Complete Unilateral IMPRESSION: There is no mammographic or sonographic evidence of malignancy in the left [address]. BI-RADS 2: BENIGN. RECOMMEND ANNUAL MAMMOGRAPHIC SCREENING. Follow-up code: Routine Follow-up Reading Location: [id number]
== END | disposition home or self-care (01) ==
PROVIDERS: PCP Family Medicine; Referring Provider Family Medicine; Visit Provider Family Medicine
DX: R92.8 Other abnormal and inconclusive findings on diagnostic imaging of breast (principal)
CPT/HCPCS: 76641; 77061; 77065; G0279

== ENCOUNTER → 2025-02-27 | Outpatient (CLI) | payer MEDICARE, SELFPAY ==
[2025-03-03 14:39] LABS: INR Fingerstick 2.0
== END | disposition home or self-care (01) ==
LOC: MTLAB 11:13
PROVIDERS: PCP Family Medicine; Referring Provider Family Medicine; Visit Provider Family Medicine
DX: D68.61 Antiphospholipid syndrome (principal)
CPT/HCPCS: 36416; 85610

== ENCOUNTER → 2025-03-02 | Outpatient (CLI) | payer MEDICARE, SELFPAY ==
[2025-03-02 12:37] LABS: Prothrombin Time (Protime)PT. 26.5 SECONDS (11.7-14.9)
== END | disposition home or self-care (01) ==
LOC: MTLAB 10:14
PROVIDERS: PCP Family Medicine; Referring Provider Family Medicine; Visit Provider Family Medicine
DX: D68.61 Antiphospholipid syndrome (principal)
CPT/HCPCS: 36415; 85610

== ENCOUNTER → 2025-05-05 | Outpatient (CLI) | payer MEDICARE, SELFPAY ==
[2025-05-05 15:24] LABS: Hematocrit 33.6 % (37-47); Hemoglobin 10.3 g/dL (12.0-15.0); Mean Corp Hgb Conc 30.7 g/dL (32-36); Mean Corpuscular Volume 89.8 fL (81-99); Mean Platelet Vol. 10.1 fl (6.2-12.0); Platelet Count 253 K/mm3 (150-450); RBC Distribution Width CV 14.9 % (11.6-14.6); RBC Distribution Width SD 49.7 fl (35.1-43.9); Red Blood Count 3.74 M/mm3 (4.2-5.4); White Blood Count 6.3 K/mm3 (4.4-11.0)
[2025-05-05 16:09] LABS: Ferritin 10 ng/mL (22-378); Iron 22 ug/dL (50-170)
--- OUTSIDE RECORDS SUMMARY | 2025-05-05 21:21 | XMS RPT_ITS | CCD ---
Author Organization [facility] Care Team Providers Care Mine Analyst Name Role Phone Stephanie Smith MD Unavailable Josefa RN, Jazmyn Ac Unavailable Unavailable WSANurse Unavailable Unavailable MEENA BETANCOURT (FEL) Unavailable Unavailable STEPHANIE SMITH Unavailable Unavailable BRAVO DANIEL Unavailable Unavailable Dr. True Vazquez Primary Care Provider Dr. True Vazquez Referring Provider Josiah DOBBY LOOM WEAVER, DOBBY LOOM WEAVER-C Lindsay Attending Provider Dr. True Vazquez Primary Care Provider [phone] Dr. True Vazquez Referring Provider Josiah DOBBY LOOM WEAVER, DOBBY LOOM WEAVER-C Lindsay Attending Provider Dr. True Vazquez Primary Care Provider Dr. Pedro Morin Attending Provider [phone] Dr. Ainsley Culver Referring Provider Dr. True Vazquez Referring Provider Josiah DOBBY LOOM WEAVER, DOBBY LOOM WEAVER-C Lindsay Attending Provider Dr. True Vazquez Primary Care Provider Dr. True Vazquez Referring Provider Josiah DOBBY LOOM WEAVER, DOBBY LOOM WEAVER-C Lindsay Attending Provider Dr. True Vazquez Primary Care Provider Dr. True Vazquez Referring Provider Josiah DOBBY LOOM WEAVER, DOBBY LOOM WEAVER-C Lindsay Attending Provider Dr. True Vazquez Primary Care Provider Dr. True Vazquez Referring Provider Josiah DOBBY LOOM WEAVER DOBBY LOOM WEAVERJanellC Lindsay Attending Provider MUSTAPHA COLLINS MD Admitting Unavailable LITZY VAZQUEZ MD Referring Unavailab LITZY Pearce MD Consulting Unavailab le MUSTAPHA COLLINS MD Attending Unavailable MUSTAPHA COLLINS MD Primary Care Unavailable PROVIDER, UNKNOWN Consulting Unavailable George HUNT, Dr. Mariscal Primary Care Provider George HUNT, Dr. Mariscal Referring Provider Josiah DOBBY LOOM WEAVERJanellCLindsay Attending Provider Carmen DARDEN, Dr. Membreno Attending Provider Carmen DARDEN, Dr. Membreno Emergency Provider Dr. Litzy Vazquez MD Attending Provider Dr. Litzy Vazquez MD Primary Care Provider Dr. Litzy Vazquez MD Referring Provider Josiah NP-CLindsay Attending Provider Dr. Angelo Arias MD Attending Provider Dr. Angelo Arias MD Referring Provider Bennett HUNT, Dr. Dupont Attending Provider Dr. Litzy Vazquez MD Primary Care Provider Dr. Litzy Vazquez MD Referring Provider Josiah DOBBY LOOM WEAVER-CLindsay Attending Provider Litzy Vazquez Primary Care Unavailable Litzy Vazquez Attending Unavailable Litzy Vazquez Referring Unavailable Litzy Vazquez Attending Unavailable Litzy Vazquez Referring Unavailable Litzy Vazquez Primary Care Unavailable Haseeb Morales Attending Unavailabl e Litzy Vazquez Primary Care Unavailable Arias, Angelo Attending Unavailable Arias, Angelo Referring Unavailable [place], [facility] Primary Care Unavailable Arias, Angelo Attending Unavailable Arias, Angelo Referring Unavailable [place], [facility] Primary Care Unavailable Ranney, Christopher Referring Unavailable Kiah Guajardo Attending Unavailable [place], [facility] Primary Care Unavailable Ranney, [facility] Primary Care Unavailable Beatrice DOBBY LOOM WEAVER, Lindsay Attending Unavailable Ranney, Christopher Referring Unavailable Josiah DOBBY LOOM WEAVER, Lindsay Attending Unavailable Ranney, Christopher Referring Unavailable Ranney, [facility] Primary Care Unavailable Beatrice DOBBY LOOM WEAVER, Lindsay Attending Unavailable Ranney, Christopher Referring Unavailable Ranney, [facility] Primary Care Unavailable Josiah DOBBY LOOM WEAVER, Lindsay Attending Unavailable [facility], [facility] Referring Unavailable [place], [facility] Primary Care Unavailable Kiah Guajardo Attending Unavailable [place], [facility] Referring Unavailable [place], [facility] Primary Care Unavailable [place], [facility] Primary Care Unavailable ElidaneskiKiah Attending Unavailable Kiah Guajardo Referring Unavailable [place], [facility] Primary Care Unavailable Kiah Guajardo Attending Unavailable SantanakiKiah Referring Unavailable [place], [facility] Consulting Unavailable Allergies Allergy Classification Reported Allergen(s) Allergy Type Date of Onset Reaction(s) Facility (2 sources) Latex rubber gloves drug allergy 7 [facility] Work Phone: (16 sources) Latex; Translations: [LATEX] Propensity to adverse reactions to drug (disorder) 7 [facility] (1 source) oxyCODONE; Translations: [OXYCODONE] Drug Allergy 3 [facility] Repository Medications Current Medications Medication Drug Class(es) Dates Sig (Normalized) Sig (Original) acetaminophen 500 mg oral tablet (13 sources) Start: 03-09-2015 take 2 tablets by mouth twice daily as needed for pain Acetaminophen 500 MG tablet Active 1000 mg PO TWICE A DAY as needed for Pain March 09, 2015 12:00am Start: 03-09-2015 take 1000 mg by mout h twice daily Acetaminophen Active 1000 MG PO TWICE A DAY March 08, 2015 11:00pm [id number] actuat albuterol 0.09 mg/actuat metered dose inhaler (13 sources) beta2-Adrenergic Agonist Start: 12-31-2016 Albut crystal Sulfate 1 INHALER inhaler Active 1 NMA INHALATION EVERY 4 HOURS NEEDED as needed for Sob &/Or Wheezing December 31, 2016 12:00am Start: 12-31-2016 take 1 puff(s) by in halation every four hours as needed Albuterol Sulfate Active 1 PUFF INHALATION EVERY 4 HOURS NEEDED December 30, 2016 11:00pm betamethasone 0.5 mg/ml / clotrimazole 10 mg/ml topical cream (13 sources) Azole Antifungal, Corticosteroid Start: 07-12-2020 Clotrimazole-Betamethasone 1-0.05 % cream Active 1 NMA TOPICAL TWICE A DAY 45 14 July 12, 2020 1:00am Start: 07-12-2020 Clotrimazole-B etamethasone Active 1 APPLIC TOPICAL TWICE A DAY 45 14 July 12, 2020 12:00am busPIRone hydrochloride 10 mg oral tablet (15 sources) Start: 08-27-2018 take 1 tablet by mouth three times daily Buspirone 10 mg tablet Active 10 mg PO THREE TIMES A DAY August 27, 2018 1:00am Start: 04-11-2017 take 1 tablet by rosamaria once daily BUSPIRONE HCL 10 MG TABS One tablet by mouth daily BUSPIRONE HCL [id number] Stephanie Smith MD Calcium Amino Acid Chelate 200 mg calcium tablet (2 sources) Start: 03-31-2025 Calcium Amino Acid Chelate 200 mg calcium tablet Active mg PO March 31, 2025 12:00am calcium ascorbate 500 mg oral tablet (10 sources) Start: 10-03-2022 take 1 tablet by mouth once daily Ascorbate Calcium (Vitamin C) 500 mg tablet Active 500 mg PO DAILY October 03, 2022 1:00am cholecalciferol 0.625 mg oral capsule (2 sources) Vitamin D Start: 03-31-2025 take 1 capsule by mouth every week Cholecalciferol (Vitamin D3) 625 mcg (25,000 unit) capsule Active 625 ug PO EVERY WEEK March 31, 2025 12:00am Denosumab (Prolia) 60 mg/mL syringe (2 sources) Start: 03-31-2025 Denosumab (Prolia) 60 mg/mL syringe Active 60 mg SC every 6 months March 31, 2025 12:00am esomeprazole 20 mg delayed release oral capsule (20 sources) Proton Pump Inhibitor Start: 10-23-2018 take 2 capsules by mouth once daily Esomeprazole Magnesium 20 MG capsule Active 40 mg PO DAILY October 23, 2018 1:00am Start: 10-23-2018 take 40 mg by mouth once daily Esomeprazole Magnesium Active 40 MG PO DAILY October 23, 2018 12:00am Start: 04-11-2017 take 1 tablet by rosamaria once daily NEXIUM 40 MG PACK One tablet by mouth daily ESOMEPRAZOLE MAGNESIUM [id number] Stephanie Smith MD Start: 08-04-2013 End: 08-27-2018 take 1 capsule by mouth once daily Esomeprazole Magnesium 40 MG capsule Discontinued 40 mg PO DAILY August 04, 2013 1:00am August 27, 2018 12:07pm 24 hr fesoterodine fumarate 8 mg extended release oral tablet (8 sources) Start: 03-31-2025 take 1 tablet by mouth once daily Fesoterodine 8 mg tablet extended release 24 hr Active 8 mg PO daily March 31, 2025 12:00am Start: 11-14-2023 End: 03-31-2025 take 1 tablet by mouth once daily Fesoterodine 4 mg tablet extended release 24 hr Discontinued 4 mg PO DAILY November 14, 2023 12:00am March 31, 2025 1:22pm fluticasone propionate 0.05 mg/actuat metered dose nasal spray (20 sources) Corticosteroid Start: 11-02-2021 Fluticasone Pr opionate 50 mcg/actuation spray,suspension Active 2 NMA INHALATION DAILY as needed November 02, 2021 11:40am Start: 10-23-2018 End: 11-02-2021 Fluticasone Propionate 50 MC G spray,suspension Discontinued 2 NMA INHALATION DAILY October 23, 2018 1:00am November 02, 2021 11:42am Start: 10-23-2018 End: 11-02-2021 take 1 spray(s) by inhalation once daily Fluticasone Propionate Active 2 SPRAY INHALATION DAILY November 02, 2021 10:40am 12 hr guaiFENesin 600 mg extended release oral tablet (13 sources) Start: 11-02-2021 take 1 tablet by mouth once daily, then take 1 tablet by mouth every twelve hours Guaifenesin (Mucinex) 600 mg tablet extended release 12hr Active 600 mg PO daily November 02, 2021 12:00am magnesium gluconate 550 mg oral tablet (13 sources) Start: 11-02-2021 take 1 tablet by mouth once daily Magnesium 30 mg tablet Active 30 mg PO DAILY November 02, 2021 12:00am mecobalamin 1 mg chewable tablet (2 sources) Start: 03-31-2025 take 1 tablet by mouth once daily Mecobalamin (Vitamin B12) 1,000 mcg tablet,chewable Active 1000 ug PO daily March 31, 2025 12:00am 24 hr mirabegron 50 mg extended release oral tablet (20 sources) beta3-Adrenergi c Agonist Start: 06-06-2022 take 1 tablet by mouth once daily Mirabegron (Myrbetriq) 50 mg tablet extended release 24 hr Active 50 mg PO DAILY June 06, 2022 12:00am Start: 10-27-2020 End: 01-30-2022 take 1 tablet by mouth once daily Mirabegron (Myrbetriq) 50 mg tablet extended release 24 hr Discontinued 100 mg PO DAILY October 27, 2020 1:00am January 30, 2022 11:22am polyethylene glycol 3350 00079 mg powder for oral solution (13 sources) Osmotic Laxative Start: 11-02-2021 Polyethylene Glycol 3350 (Miralax) 17 gram/dose powder Active 17 g PO DAILY as needed November 02, 2021 12:00am warfarin sodium 1 mg oral tablet (20 sources) Vitamin K Antagonist Start: 10-27-2020 take 2 tablets by mouth once daily, then take 2.5 mg by mouth once daily Warfarin 1 mg tablet Active 0 PO DAILY October 27, 2020 2:19pm 2mg m-w-f, 2.5mg other days PO daily; Start: 10-27-2020 take 2 mg by mouth o nce daily, then take 2.5 mg by mouth once daily Warfarin Active 0 PO DAILY October 27, 2020 1:19pm 2mg m-w-f, 2.5mg other days PO daily; Start: 08-11-2020 End: 10-27-2020 take 1 tablet by mouth once daily Warfarin 1 mg tablet Discontinued 1 mg PO DAILY August 11, 2020 1:00am October 27, 2020 2:20pm Start: 08-11-2020 End: 08-11-2020 Warfarin 2 mg tablet Discont inued 0 PO .COMPLEX August 11, 2020 1:00am August 11, 2020 4:30pm 2.5 mg tuesdays and , 2mg all other days PO; Start: 08-11-2020 End: 08-11-2020 Warfarin Discontinued 0 PO . COMPLEX August 11, 2020 12:00am August 11, 2020 3:30pm 2.5 mg tuesdays and , 2mg all other days PO; Start: 07-14-2020 End: 08-11-2020 take 1 tablet by mouth every other day Warfarin 1 mg tablet Discontinued 1 mg PO every other day July 14, 2020 1:00am August 11, 2020 3:11pm on odd numbered days Start: 04-11-2017 COUMADIN 2 MG TABS as directed WARFARIN SODIUM [id number] Stephanie Smith MD Start: 02-04-2017 End: 08-27-2018 take 1 tablet by mouth once daily Warfarin 1 MG tablet Discontinued 1 mg PO DAILY February 04, 2017 12:00am August 27, 2018 12:07pm Start: 12-07-2016 End: 12-31-2016 take 1 tablet by mouth once Warfarin (Jantoven) 5 MG t ablet Discontinued 5 mg PO ONE TIME 0 December 07, 2016 12:00am December 31, 2016 4:07pm 1 time at 6 PM today and then INR tomorrow and titrate the dose of Coumadin in consultation with PCP tomorrow. Start: 12-06-2016 End: 12-07-2016 take 1 tablet by mouth at dinner Warfarin (Coumadin (Pbkc)) 3 MG tablet Discontinued 3 mg PO WITH DINNER December 06, 2016 12:00am December 07, 2016 1:26pm Completed/Discontinued Medications Medication Drug Class(es) Dates Sig (Normalized) Sig (Original) acetaminophen 300 mg / HYDROcodone bitartrate 5 mg oral tablet (13 sources) Opioid Agonist Start: 08-04-2013 End: 08-08-2013 Hydrocodone-Acetam inophen (Vicodin 5-300 Mg Tablet) 1 EACH tablet Discontinued 1 - 2 {tbl} PO EVERY 4 HOURS NEEDED as needed for Mod-Severe (Pain Scale 6-10) August 04, 2013 1:00am August 08, 2013 8:11am cefdinir 300 mg oral capsule (15 sources) Cephalosporin Antibacterial Start: 04-11-2017 take 1 tablet by mouth once daily CEFDINIR 300 MG CAPS One tablet by mouth daily CEFDINIR [id number] Stephanie Smith MD Start: 02-05-2017 End: 08-27-2018 take 1 capsule by mouth every twelve hours Cefdinir 300 MG capsule Discontinued 300 mg PO Q12H February 05, 2017 12:00am August 27, 2018 12:07pm cephalexin 500 mg oral capsule (19 sources) Cephalosporin Antibacterial Start: 09-21-2024 End: 12-02-2024 take 1 capsule by mouth every twelve hours Cephalexin 500 mg capsule Discontinued 500 mg PO EVERY 12 HOURS 14 0 September 21, 2024 1:00am December 02, 2024 1:05pm Start: 07-14-2020 End: 07-21-2020 take 1 capsule by mouth every twelve hours Cephalexin (Keflex) 500 mg capsule Discontinued 500 mg PO Q12H 14 7 0 July 14, 2020 1:00am July 20, 2020 1:00am July 21, 2020 1:02am ciprofloxacin 500 mg oral tablet (13 sources) Quinolone Antimicrobial Start: 08-11-2020 End: 08-21-2020 take 1 tablet by mouth twice daily Ciprofloxacin Hcl 500 mg tablet Discontinued 500 mg PO TWICE A DAY 20 10 0 August 11, 2020 1:00am August 20, 2020 1:00am August 21, 2020 1:03am clindamycin 20 mg/ml vaginal cream (10 sources) Lincosamide Antibacterial Start: 10-03-2022 End: 10-08-2022 Clindamycin Phosphate 2 % cream Discontinued 1 NMA VAGINAL AT BEDTIME 40 5 0 October 03, 2022 1:00am October 07, 2022 1:00am October 08, 2022 1:05am Start: 10-03-2022 End: 10-08-2022 Clindamycin Phosphate Discon tinued 1 APPFUL VAGINAL AT BEDTIME 40 5 October 03, 2022 12:00am October 08, 2022 12:05am ferrous sulfate 325 mg oral tablet (20 sources) Start: 10-03-2022 End: 03-31-2025 take 1 tablet by mouth once daily Ferrous Sulfate 325 mg (65 mg iron) tablet Discontinued 325 mg PO DAILY October 03, 2022 1:00am March 31, 2025 1:16pm Start: 10-27-2020 End: 08-02-2021 take 1 tablet by mouth once daily Ferrous Sulfate (Iron) 325 mg (65 mg iron) tablet Discontinued 325 mg PO DAILY October 27, 2020 1:00am August 02, 2021 12:12pm FLUTICASONE-SALMETEROL (15 sources) Corticosteroid, beta2-Adrenergic Agonist Start: 04-11-2017 ADVAIR DISKUS 100-50 MCG/DOSE AEPB as directed FLUTICASONE-SALMETEROL [id number] Stephanie Smith MD Start: 08-04-2013 End: 07-12-2020 take 1 puff(s) by inhalation once daily Fluticasone Propion-Salmeterol 1 PUFF inhaler Discontinued 1 NMA INHALATION DAILY August 04, 2013 1:00am July 12, 2020 12:58pm Start: 08-04-2013 End: 07-12-2020 take 1 puff(s) by inhalation once daily Fluticasone Propion-Salmeterol Discontinued 1 PUFF INHALATION DAILY August 04, 2013 12:00am July 12, 2020 11:58am Start: 08-04-2013 End: 07-12-2020 take 1 puff(s) by inhalation once daily Fluticasone Propion-Salmeterol Discontinued 1 PUFF INHALATION DAILY August 04, 2013 1:00am July 12, 2020 12:58pm loratadine 10 mg oral tablet (13 sources) Start: 10-27-2020 End: 11-02-2021 take 1 tablet by mouth once daily Loratadine (Claritin) 10 mg tablet Discontinued 10 mg PO DAILY October 27, 2020 1:00am November 02, 2021 11:40am meclizine hydrochloride 25 mg oral tablet (12 sources) Antiemetic Start: 05-02-2022 End: 03-31-2025 take 1 tablet by mouth three times daily as needed for dizziness Meclizine 25 mg tablet Discontinued 25 mg PO THREE TIMES A DAY as needed for dizziness 30 0 May 02, 2022 12:00am March 31, 2025 1:21pm Miscellaneous Medical Supply misc (6 sources) Start: 12-10-2018 End: 08-02-2021 Miscellaneous Medical Supply misc Discontinued 0 .ROUTE .MEDSUPPLY 12 December 10, 2018 12:00am August 02, 2021 12:13pm estriol cream 3 nights per week Start: 12-10-2018 End: 08-02-2021 Miscellaneous Medical Supply misc Discontinued 0 .ROUTE .MEDSUPPLY December 10, 2018 12:00am August 02, 2021 12:13pm estriol cream 3 nights per week miscellaneous medical supply vaginal (7 sources) Start: 12-10-2018 End: 08-02-2021 miscellaneous medical supply vaginal Discontinued 0 .ROUTE .MEDSUPPLY December 09, 2018 11:00pm August 02, 2021 11:13am estriol cream 3 nights per week Start: 12-10-2018 End: 08-02-2021 miscellaneous medical supply vaginal Discontinued 0 .ROUTE .MEDSUPPLY December 10, 2018 12:00am August 02, 2021 12:13pm estriol cream 3 nights per week nitrofurantoin, macrocrystals 25 mg / nitrofurantoin, monohydrate 75 mg oral capsule (20 sources) Nitrofuran Antibacterial Start: 07-12-2021 End: 08-02-2021 take 1 capsule by mouth twice daily at mealtime Nitrofurantoin Monohyd/M-Cryst (Macrobid) 100 mg capsule Discontinued 100 mg PO TWICE A DAY 14 7 0 July 12, 2021 1:00am August 02, 2021 12:14pm must administer with a meal/food Start: 11-11-2019 End: 07-12-2020 take 1 capsule by mouth every twelve hours Nitrofurantoin Monohyd/M-Cryst 100 MG capsule Discontinued 100 mg PO EVERY 12 HOURS 10 0 November 11, 2019 12:00am July 12, 2020 12:57pm Start: 10-03-2018 End: 10-10-2018 take 1 capsule by mouth twice daily at mealtime Nitrofurantoin Monohyd/M-Cryst (Macrobid) 100 mg capsule Discontinued 100 mg PO TWICE A DAY 14 7 0 October 03, 2018 1:00am October 09, 2018 1:00am October 10, 2018 1:08am must administer with a meal/food Drug Treatment Unknown - unknown (2 sources) No information available. ondansetron 4 mg disintegrating oral tablet (6 sources) Serotonin-3 Receptor Antagonist Start: 09-21-19 End: 03-31-20 take 1 tablet by mouth every eight hours as needed for nausea Ondansetron 4 mg tablet,disintegratin g Discontinued 4 mg PO EVERY 8 HOURS NEEDED as needed for Nausea 10 0 September 21, 2024 1:00am March 31, 2025 1:19pm 24 hr oxybutynin chloride 15 mg extended release oral tablet (20 sources) Cholinergic Muscarinic Antagonist Start: 10-28-19 End: 03-31-20 take 1 tablet by mouth once daily Oxybutynin Chloride 15 mg tablet extended release 24hr Discontinued 15 mg PO DAILY October 27, 2020 1:00am March 31, 2025 1:19pm Start: 07-12-2020 End: 10-27-2020 Oxybutynin Chloride 15 mg ta blet extended release 24hr Discontinued 30 mg PO DAILY August 11, 2020 3:20pm October 27, 2020 2:15pm take 25mg + 10mg in AM 10mg in PM Start: 07-12-2020 End: 10-27-2020 take 25 mg by mouth once daily, then take 10 mg by mouth in the morning, then take 10 mg by mouth in the evening Oxybutynin Chloride Discontinued 30 MG PO DAILY August 11, 2020 2:20pm October 27, 2020 1:15pm take 25mg + 10mg in AM 10mg in PM Start: 03-11-2019 End: 07-12-2020 Oxybutynin Chloride 15 mg ta blet extended release 24hr Discontinued 30 mg PO DAILY March 11, 2019 10:41am July 12, 2020 1:02pm take 20mg in AM 10mg in PM Start: 03-11-2019 End: 07-12-2020 take 20 mg by mouth once daily in the morning, then take 10 mg by mouth in the evening Oxybutynin Chloride Discontinued 30 MG PO DAILY March 11, 2019 9:41am July 12, 2020 12:02pm take 20mg in AM 10mg in PM Start: 10-23-2018 End: 03-11-2019 take 1 tablet by mouth once daily Oxybutynin Chloride 15 MG tablet extended release 24hr Discontinued 15 mg PO DAILY October 23, 2018 1:00am March 11, 2019 10:42am Start: 04-11-2017 take 1 tablet by rosamaria th once daily DITROPAN XL 5 MG [id number] One tablet by mouth daily OXYBUTYNIN CHLORIDE [id number] Stephanie Smith MD Start: 12-06-2016 End: 08-27-2018 take 1 tablet by mouth twice daily Oxybutynin Chloride 5 MG tablet Discontinued 5 mg PO TWICE A DAY December 06, 2016 12:00am August 27, 2018 12:07pm oxyCODONE hydrochloride 5 mg oral tablet (13 sources) Opioid Agonist Start: 10-24-2018 End: 10-27-2018 take 1 tablet by mouth every four hours as needed for pain Oxycodone 5 MG tablet Discontinued 5 mg PO EVERY 4 HOURS NEEDED as needed for Mod-Severe Pain (-05/29) 18 3 0 October 24, 2018 1:00am October 26, 2018 1:00am October 27, 2018 1:10am Right knee pain Pain in right knee phenazopyridine hydrochloride 100 mg oral tablet (13 sources) Start: 08-02-2021 End: 11-02-2021 take 1 tablet by mouth twice daily as needed Phenazopyridine (Pyridium) 100 mg tablet Discontinued 100 mg PO TWICE A DAY as needed August 02, 2021 1:00am November 02, 2021 11:42am predniSONE 20 mg oral tablet (20 sources) Start: 10-03-2022 End: 03-31-2025 take 2 tablets by mouth once daily Prednisone 20 mg tablet Discontinued 40 mg PO DAILY October 03, 2022 2:59pm March 31, 2025 1:20pm 5 days Start: 10-03-2022 take 40 mg by mouth once daily Prednisone Active 40 MG PO DAILY October 03, 2022 1:59pm 5 days Start: 10-03-2022 End: 10-03-2022 take 1 tablet by mouth once daily Prednisone 20 mg tablet Discontinued 20 mg PO DAILY October 03, 2022 1:00am October 03, 2022 2:59pm 5 days SUCRALFATE (15 sources) Aluminum Complex Start: 04-11-2017 take 1 tablet by mouth once daily CARAFATE 1 GM TABS One tablet by mouth daily SUCRALFATE [id number] Stephanie Smith MD Start: 02-05-2017 End: 03-11-2019 take 1 tablet by mouth 1 hour(s) before mealtime Sucralfate 1 GM tablet Discontinued 1 g PO ONE HOURS BEFORE MEALS & BED 120 0 February 05, 2017 12:00am March 11, 2019 10:39am sulfamethoxazole 800 mg / trimethoprim 160 mg oral tablet (13 sources) Dihydrofolate Reductase Inhibitor Antibacterial, Sulfonamide Antimicrobial Start: 07-14-2020 End: 07-14-2020 Sulfamethoxazole-Trimethopri m 800-160 mg tablet Discontinued 1 {tbl} PO TWICE A DAY 10 5 0 July 14, 2020 1:00am July 18, 2020 1:00am July 14, 2020 10:35am Start: 07-14-2020 End: 07-14-2020 take 1 tablet by mouth twice daily Sulfamethoxazole-Trimethoprim Discontinu ed 1 TABLET PO TWICE A DAY 10 July 14, 2020 12:00am July 14, 2020 9:35am Vibegron (13 sources) Start: 01-30-2022 End: 03-31-2025 take 1 tablet by mouth once daily Vibegron (Gemtesa) 75 mg tablet Discontinued 75 mg PO DAILY January 30, 2022 12:00am March 31, 2025 1:21pm Start: 01-30-2022 take 1 tablet by rosamaria th once daily Vibegron (Gemtesa) 75 mg tablet Active 75 mg PO DAILY January 30, 2022 12:00am Start: 01-30-2022 take 1 tablet by rosamaria th once daily Vibegron (Gemtesa) 75 mg tablet Active 75 MG PO DAILY January 29, 2022 11:00pm Start: 01-30-2022 take 1 tablet by rosamaria th once daily Vibegron (Gemtesa) 75 mg tablet Active 75 MG PO DAILY January 30, 2022 12:00am Problems Active Problems Problem Classification Problem Date Documented Da te Episodic/Chronic Abdominal pain (14 sources) Unspecified abdominal pain; Translations: [Abdominal pain] Onset: 7 10-24-2018 Episodic Asthma (13 sources) Asthma; Translations: [Unspecified asthma, uncomplicated] 10-24-2018 Chronic Chronic ulcer of skin (13 sources) Pressure ulcer of unspecified site, stage 2; Translations: [Pressure injury, stage 2] 11-12-2019 Chronic Coagulation and hemorrhagic disorders (20 sources) Lupus anticoagulant disorder; Translations: [Blood coagulation disorder] Onset: 5 10-24-2018 Chronic Conditions associated with dizziness or vertigo (20 sources) Lightheadedness; Translations: [Dizziness and giddiness] 05-10-2022 Episodic Deficiency and other anemia (13 sources) Microcytic anemia; Translations: [Iron deficiency anemia, unspecified] 10-24-2018 Episodic Gastrointestinal hemorrhage (13 sources) Gastrointestinal hemorrhage; Translations: [Gastrointestinal hemorrhage, unspecified] 10-17-2015 Episodic Genitourinary symptoms and ill-defined conditions (20 sources) Incontinence; Translations: [Unspecified urinary incontinence] Onset: 4 12-10-2018 Chronic Comment on above: See Dr Guajardo Genitourinary symptoms and ill-defined conditions (6 sources) Nocturia; Translations: [Nocturia] Onset: 5 03-31-2025 Episodic Inflammatory diseases of female pelvic organs (2 sources) Acute vaginitis; Translations: [Vaginitis and vulvovaginitis, unspecified] 10-03-2022 Episodic Menopausal disorders (1 source) Unspecified menopausal and perimenopausal disorder; Translations: [Unspecified menopausal and perimenopausal disorder] Onset: 5 Chronic Nonspecific chest pain (13 sources) Atypical chest pain; Translations: [Other chest pain] 10-24-2018 Episodic Osteoarthritis (15 sources) Osteoarthritis; Translations: [Arthritis] Onset: 7 04-11-2017 Chronic Other non-traumatic joint disorders (13 sources) Pain in right knee; Translations: [Right knee pain] 11-11-2019 Episodic Other nutritional; endocrine; and metabolic disorders (13 sources) Morbid obesity; Translations: [Morbid (severe) obesity due to excess calories] 10-24-2018 Chronic Phlebitis; thrombophlebitis and thromboembolism (15 sources) Deep venous thrombosis; Translations: [Acute embolism and thrombosis of unspecified deep veins of unspecified lower extremity] Onset: 7 04-11-2017 Episodic Prolapse of female genital organs (20 sources) Cystocele and rectocele co-occurrent with incomplete uterovaginal prolapse; Translations: [Incomplete uterovaginal prolapse] Onset: 4 Chronic Comment on above: stable Rehabilitation care; fitting of prostheses; and adjustment of devices (20 sources) Patient encounter status; Translations: [Encounter for fitting and adjustment of other specified devices] Onset: 4 Chronic Comment on above: #3 ring with support and knob Syncope (13 sources) Near syncope; Translations: [Syncope and collapse] 10-24-2018 Episodic Unclassified (2 sources) No current problems or disability 02-07-2017 Urinary tract infections (20 sources) Urinary tract infectious disease; Translations: [Urinary tract infection, site not specified] 10-24-2018 Episodic Past or Other Problems Problem Classification Problem Date Documented Da te Episodic/Chronic Abdominal hernia (2 sources) Sliding hiatus hernia ; Translations: [Diaphragmatic hernia without obstruction or gangrene] Onset: 04-11-2017 04-11-2017 Episodic Nausea and vomiting (1 source) Nausea with vomiting, unspecified; Translations: [Nausea with vomiting, unspecified] Onset: 10-09-2024 Episodic Spondylosis; intervertebral disc disorders; other back problems (2 sources) Backache; Translations: [Dorsalgia, unspecified] Onset: 04-11-2017 04-11-2017 Episodic Unclassified (2 sources) Encounter for screening for other disorder; Translations: [Other abnormal and inconclusive findings on diagnostic imaging of breast] Onset: 03-13-2017 Episodic Results Test Name Value Interpretation Reference Range Facility MR/[facility] 04-28-2025 /[facility] [address], [address] [place] [address] OFFICE VISIT Date of Service: 04/28/25 MR#: [id number] Acct: [id number] Name: SINDY SWEENEY Rep #: [id number] : 1945 Provider: Dr. Kiah Zimmerman i, MD Age/Sex: 79/F Location: [facility] [place] Status: Signed Intake Vital Signs 03/31/25 13:29 04/28/25 10:57 Height 5 ft 5 in 5 ft 5 in Weight: 192 lb BMI 31.9 BP 118/78 Pulse 74 Temp 97.3 F L Intake Visit Reasons: ptns Chief Complaint: PTNS treatment Patient Portal Representative Required: No Is patient in pain?: No Allergies latex Adverse Reaction (Verified 02/24/25 10:15) Rash Medications ???Medication ???Instructions ???Recorded ???Confirmed ???Type acetaminophen 500 mg tablet 1,000 mg PO BID PRN Pain 03/09/15 04/28/25 History albuterol sulfate 90 mcg/actuation 1 puff inhalation Q4H PRN PRN So b 12/31/16 04/28/25 History aerosol inhaler /Or Wheezing buspirone 10 mg tablet 10 mg PO TID 08/27/18 04/28/25 His tory esomeprazole magnesium 20 mg 40 mg PO DAILY 10/23/18 04/28/25 H istory capsule,delayed release clotrimazole-betamethasone 1 1 applic topical BID 2 weeks #45 1 09/11/19 04/28/25 Rx %-0.05 % topical cream grams warfarin 1 mg tablet See Rx Instructions PO DAILY 10/2704/28/25 History fluticasone propionate 50 2 spray inhalation DAILY PRN 11/0204/28/25 History mcg/actuation nasal spray,suspension guaifenesin 600 mg tablet, 600 mg PO QDAY 11/02/21 04/28/25 H istory extended release 12 hr (Mucinex) magnesium 30 mg tablet 30 mg PO DAILY 11/02/21 04/28/25 H istory polyethylene glycol 3350 17 17 g PO DAILY PRN 11/02/21 5 History gram/dose oral powder (Miralax) mirabegron 50 mg tablet,extended 50 mg PO DAILY 06/06/22 04/28/25 H istory release 24 hr (Myrbetriq) ascorbate calcium (vitamin C) 500 500 mg PO DAILY 10/03/22 04/28/25 History mg tablet calcium amino acid chelate mg PO 03/31/25 04/28/25 History cholecalciferol (vitamin D3) 625 625 mcg PO QWEEK 03/31/25 04/28/25 History mcg (25,000 unit) capsule denosumab 60 mg/mL subcutaneous 60 mg subcut [id number] 03/31/2505/14 History syringe (Prolia) fesoterodine 8 mg tablet,extended 8 mg PO QDAY 03/31/25 04/28/25 Hi story release 24 hr mecobalamin (vitamin B12) 1,000 1,000 mcg PO QDAY 03/31/25 5 History mcg chewable tablet Have you fallen in the past year?: No PFSH Medical History Urge incontinence Nocturia Knee injury Incontinence Phlebitis and thrombophlebitis of superficial vessels of lower extremities, bilateral Emphysema lung Anxiety Colonoscopy planned Surgical History Hx of cholecystectomy History of hip replacement Family History Father Lung cancer Social History Smoking Status: Never smoker alcohol intake: never substance use type: does not use caffeine: Yes what type of physical activity do you participate in: none seatbelt use: always do you feel safe at home: Yes additional social history: - Max HPI HPI Urology Chief Complaint: PTNS treatment Details: SINDY SWEENEY, is a 79 F. She is voiding about 10-12 time during the day and 1-2 times at night. The incontinence is improving. She is going through 0-2 pads a day. She is continuing to work on level one management with diet, fluid control and bladder training. She is not having any issues with her skin or ankle after treatments. She is happy with this treatment plan. ROS Const Constitutional: No chills, fatigue, fever(s), headache(s), night sweats, weakness, weight change, abnormal sleep pattern or change in appetite Eyes Eyes: No change in vision ENT ENT: No headache(s) or dry mouth Resp Respiratory: No cough, chest congestion, shortness of breath or wheezing Cardio Cardiology: Positive for other (No chest pain.); No shortness of breath, irregular heart rhythm or lightheadedness Gastro GI: Positive for other (No nausea.); No abdominal pain, change in bowel habits, constipation, diarrhea or vomiting Musc Musculoskeletal: No abnormal gait Skin Skin: No yellowing of the eye, lesions, itchy eyes, rash or skin ulcer Neuro Neurology: No abnormal gait, confusion, dizziness, weakness, headache(s) or memory loss Psych Psychiatric: No abnormal sleep pattern, No change in appetite, No confusion and No memory loss Endo Endocrine: No fatigue, increased thirst/drinking or weight change Aller/Imm Allergy/Immunologic: No itchy eyes or wheezing Hiren/Lymp Hematologic/Lymphatic: No easy bleeding, easy bruising or enlarged lymph nodes Exa (more content not included)... Normal [facility] MR/[facility] 03-31-2025 [facility] [address], [address] [place] [address] OFFICE VISIT Date of Service: 03/31/25 MR#: [id number] Acct: [id number] Name: SINDY SWEENEY Rep #: [id number] : 1945 Provider: Dr. Kiah Zimmerman i, MD Age/Sex: 79/F Location: [facility] [place] Status: Signed Intake Vital Signs 02/24/25 10:22 03/31/25 13:29 Height 5 ft 5 in 5 ft 5 in Weight: 195 lb BMI 32.4 BP 122/71 H Pulse 83 Temp 98.3 F Intake Visit Reasons: monthly PTNS Chief Complaint: PTNS treatment Patient Portal Representative Required: No Is patient in pain?: No Allergies latex Adverse Reaction (Verified 02/24/25 10:15) Rash Medications ???Medication ???Instructions ???Recorded ???Confirmed ???Type acetaminophen 500 mg tablet 1,000 mg PO BID PRN Pain 03/09/15 03/31/25 History albuterol sulfate 90 mcg/actuation 1 puff inhalation Q4H PRN PRN So b 12/31/16 03/31/25 History aerosol inhaler /Or Wheezing buspirone 10 mg tablet 10 mg PO TID 08/27/18 03/31/25 His tory esomeprazole magnesium 20 mg 40 mg PO DAILY 10/23/18 03/31/25 H istory capsule,delayed release clotrimazole-betamethasone 1 1 applic topical BID 2 weeks #45 1 09/11/19 03/31/25 Rx %-0.05 % topical cream grams warfarin 1 mg tablet See Rx Instructions PO DAILY 10/2703/31/25 History fluticasone propionate 50 2 spray inhalation DAILY PRN 11/0203/31/25 History mcg/actuation nasal spray,suspension guaifenesin 600 mg tablet, 600 mg PO QDAY 11/02/21 03/31/25 H istory extended release 12 hr (Mucinex) magnesium 30 mg tablet 30 mg PO DAILY 11/02/21 03/31/25 H istory polyethylene glycol 3350 17 17 g PO DAILY PRN 11/02/21 5 History gram/dose oral powder (Miralax) mirabegron 50 mg tablet,extended 50 mg PO DAILY 06/06/22 03/31/25 H istory release 24 hr (Myrbetriq) ascorbate calcium (vitamin C) 500 500 mg PO DAILY 10/03/22 03/31/25 History mg tablet calcium amino acid chelate mg PO 03/31/25 03/31/25 History cholecalciferol (vitamin D3) 625 625 mcg PO QWEEK 03/31/25 03/31/25 History mcg (25,000 unit) capsule denosumab 60 mg/mL subcutaneous 60 mg subcut [id number] 03/31/2508/13 History syringe (Prolia) fesoterodine 8 mg tablet,extended 8 mg PO QDAY 03/31/25 03/31/25 Hi story release 24 hr mecobalamin (vitamin B12) 1,000 1,000 mcg PO QDAY 03/31/25 5 History mcg chewable tablet Have you fallen in the past year?: No PFSH Medical History Urge incontinence Nocturia Knee injury Incontinence Phlebitis and thrombophlebitis of superficial vessels of lower extremities, bilateral Emphysema lung Anxiety Colonoscopy planned Surgical History Hx of cholecystectomy History of hip replacement Family History Father Lung cancer Social History Smoking Status: Never smoker alcohol intake: never substance use type: does not use caffeine: Yes what type of physical activity do you participate in: none seatbelt use: always do you feel safe at home: Yes additional social history: - Max HPI HPI Urology Chief Complaint: PTNS treatment Details: SINDY SWEENEY, is a 79 F. She is voiding about 10-11 time during the day and 1-2 times at night. The incontinence is improving. She is going through 4-5 pads a day. She is continuing to work on level one management with diet, fluid control and bladder training. She is not having any issues with her skin or ankle after treatments. She is happy with this treatment plan. ROS Const Constitutional: No chills, fatigue, fever(s), headache(s), night sweats, weakness, weight change, abnormal sleep pattern or change in appetite Eyes Eyes: No change in vision ENT ENT: No headache(s) or dry mouth Resp Respiratory: No cough, chest congestion, shortness of breath or wheezing Cardio Cardiology: Positive for other (No chest pain.); No shortness of breath, irregular heart rhythm or lightheadedness Gastro GI: Positive for other (No nausea.); No abdominal pain, change in bowel habits, constipation, diarrhea or vomiting Musc Musculoskeletal: No abnormal gait Skin Skin: No yellowing of the eye, lesions, itchy eyes, rash or skin ulcer Neuro Neurology: No abnormal gait, confusion, dizziness, weakness, headache(s) or memory loss Psych Psychiatric: No abnormal sleep pattern, No change in appetite, No confusion and No memory loss Endo Endocrine: No fatigue, increased thirst/drinking or weight change Aller/Imm Allergy/Immunologic: No itchy eyes or wheezing Hiren/Lymp Hematologic/Lymphatic: No easy bleeding, easy bruising or enlarged lymph nod (more content not included)... Normal [facility] Protime w/INR Fingerstickon 03-03-2025 INR Coag (PPP) [Relative time] 2.0 {INR} Normal [facility] Comment on above: Result Comment: Crit ical Value > 4.0 Performed By: #### M 100.678 #### [facility] [address] [place], [address] Protime [place] 22.5 SEC High 11.7-14.9 [facility] Comment on above: Performed By: #### M 100.678 #### [facility] [address] [place], [place], [id number] International normalized rat io (INR) calculationOrdered By: Angelo Arias on 03-02-2025 INR Coag (Bld) [Relative time] 2.4 {INR} [facility] Prothrombin Time w/INRon INR Coag (PPP) [Relative time] 2.4 {INR} Normal [facility] Comment on above: Performed By: #### L 300.3900 #### [facility] [address] [place], [place], [phone] (134) PT Coag (PPP) [Time] 26.5 s High 11.7-14.9 [facility] Comment on above: Performed By: #### L 300.3900 #### [facility] [address] [place], [address] Prothrombin timeOrdered By: Angelo Arias on 03-02-2025 PT Coag (PPP) [Time] 26.5 s High 11.7-14.9 [facility] International normalized rat io (INR) measurement by fingerstickOrdered By: Angelo Arias on 02-27-2025 INR Coag (BldC) [Relative time] 2.0 [facility] Comment on above: Critical Value > 4.0 Prothrombin Time w/INRon INR Normal [facility] Comment on above: Order Comment: Order Date: 02/24/25 Order Info: 6301-6 - PT Result Comment: DARI ERSTICK Performed By: #### L 300.3900 #### [facility] [address] [place], [place], [phone] (852 PROTIME Normal 11.7-14.9 [facility] Comment on above: Order Comment: Order Date: 02/24/25 Order Info: 6301-6 - PT Result Comment: DARI ERSTICK Performed By: #### L 300.3900 #### [facility] [address] [place], [address] Whole blood prothrombin time Ordered By: Angelo Arias on 02-27-2025 PT Coag (Bld) [Time] 22.5 s High 11.7-14.9 [facility] Assistant Center Director Office Visit Reporton 02-24-2025 Assistant Center Director Office Visit Report [facility] [address], [address] [place] [address] OFFICE VISIT Date of Service: 02/24/25 MR#: [id number] Acct: [id number] Name: SINDY SWEENEY Rep #: [id number] : 1945 Provider: PATI villavicencio Age/Sex: 79/F Location: [facility] [place] Status: Signed Intake Vital Signs 12/02/24 13:05 02/24/25 10:16 02/24/25 10:22 Height 5 ft 5 in 5 ft 5 in 5 ft 5 in Weight: 203 lb 2 oz BMI 33.7 BP 140/82 H Intake Visit Reasons: Pessary Check Chief Complaint: pessary check Patient Portal Representative Required: No Is patient in pain?: No Allergies latex Adverse Reaction (Verified 02/24/25 10:15) Rash Medications ???Medication ???Instructions ???Recorded ???Confirmed ???Type acetaminophen 500 mg tablet 1,000 mg PO BID PRN Pain 03/09/15 02/24/25 History albuterol sulfate 90 mcg/actuation 1 puff inhalation Q4H PRN PRN So b 12/31/16 02/24/25 History aerosol inhaler /Or Wheezing buspirone 10 mg tablet 10 mg PO TID 08/27/18 02/24/25 His tory esomeprazole magnesium 20 mg 40 mg PO DAILY 10/23/18 02/24/25 H istory capsule,delayed release clotrimazole-betamethasone 1 1 applic topical BID 2 weeks #45 1 09/11/19 02/24/25 Rx %-0.05 % topical cream grams oxybutynin chloride 15 mg 15 mg PO DAILY 10/27/20 02/24/25 H istory tablet,extended release 24 hr warfarin 1 mg tablet See Rx Instructions PO DAILY 10/2702/24/25 History fluticasone propionate 50 2 spray inhalation DAILY PRN 11/0202/24/25 History mcg/actuation nasal spray,suspension guaifenesin 600 mg tablet, 600 mg PO QDAY 11/02/21 02/24/25 H istory extended release 12 hr (Mucinex) magnesium 30 mg tablet 30 mg PO DAILY 11/02/21 02/24/25 H istory polyethylene glycol 3350 17 17 g PO DAILY PRN 11/02/21 5 History gram/dose oral powder (Miralax) vibegron 75 mg tablet (Gemtesa) 75 mg PO DAILY 01/30/22 02/24/25 H istory meclizine 25 mg tablet 25 mg PO TID PRN dizziness #30 tab s 05/02/22 02/24/25 Rx mirabegron 50 mg tablet,extended 50 mg PO DAILY 06/06/22 02/24/25 H istory release 24 hr (Myrbetriq) ascorbate calcium (vitamin C) 500 500 mg PO DAILY 10/03/22 02/24/25 History mg tablet ferrous sulfate 325 mg (65 mg 325 mg PO DAILY 10/03/22 02/24/25 History iron) tablet prednisone 20 mg tablet 40 mg PO DAILY 10/03/22 02/24/25 H istory fesoterodine 4 mg tablet,extended 4 mg PO DAILY 11/14/23 02/24/25 H istory release 24 hr ondansetron 4 mg disintegrating 4 mg PO Q8H PRN PRN Nausea #10 tab s 09/21/24 02/24/25 Rx tablet Is last menstrual period known: No Post menopausal: Yes Patient : No : No PFSH Medical History Knee injury Incontinence Phlebitis and thrombophlebitis of superficial vessels of lower extremities, bilateral Emphysema lung Anxiety Colonoscopy planned Surgical History Hx of cholecystectomy History of hip replacement Family History Father Lung cancer Social History Smoking Status: Never smoker alcohol intake: never substance use type: does not use caffeine: Yes what type of physical activity do you participate in: none seatbelt use: always do you feel safe at home: Yes additional social history: - Max HPI Pessary Check Details: SINDY SWEENEY is a 79 year old who presents for pessary check. Denies concerns. History 2 Elective abortions Hx Para 2 Spontaneous abortions Hx # Term Pregnancies Ectopic pregnancies Hx # Pregnancies Multiple births # of living children Past Pregnancies Del. Date Name GA/Weeks Outcome Route Bth Weight Gen Labor Lgth Anesthesia Del Locatn Provider FOB Unknown Kiah-1968 Unknown Charlie-1970 ROS Const Constitutional: Reports system reviewed and no additional complaints, except as documented Eyes Eyes: Reports system reviewed and no additional complaints, except as documented GI GI: Denies abdominal pain or change in bowel habits : Reports as per HPI Exam Const General: cooperative and no acute distress Nutritional Appearance: obese Orientation: oriented x3 External Female Exam: normal external appearance and normal appearance of the urethra Urethra: normal appearance of the urethra Speculum Exam - Vagina: vagina atrophic Other: No excoriations, bleeding or unusual discharge. #3 ring with support and knob removed, cleaned and replaced with trimosan gel. No discomfort with placement Coding Level of Care Code Off vis,est,level 3 Diagnoses Pessary maintenance Z46.89 Cystoc (more content not included)... Normal [facility] Assistant Center Director Office Visit Reporton 12-02-2024 Assistant Center Director Office Visit Report [facility] [address], [address] [place] [address] OFFICE VISIT Date of Service: 12/02/24 MR#: [id number] Acct: [id number] Name: SINDY SWEENEY Rep #: [id number] : 1945 Provider: PATI villavicencio Age/Sex: 79/F Location: [facility] [place] Status: Signed Intake Vital Signs 09/21/24 07:10 12/02/24 12:59 12/02/24 13:05 Height 5 ft 5 in 5 ft 5 in 5 ft 5 in Weight: 195 lb BMI 32.4 BP 136/82 H Intake Visit Reasons: PESSARY CHECK Chief Complaint: Pessary check Patient Portal Representative Required: No Is patient in pain?: No Allergies latex Adverse Reaction (Verified 12/02/24 12:59) Rash Medications ???Medication ???Instructions ???Recorded ???Confirmed ???Type acetaminophen 500 mg tablet 1,000 mg PO BID PRN Pain 03/09/15 12/02/24 History albuterol sulfate 90 mcg/actuation 1 puff inhalation Q4H PRN PRN So b 12/31/16 12/02/24 History aerosol inhaler /Or Wheezing buspirone 10 mg tablet 10 mg PO TID 08/27/18 12/02/24 His tory esomeprazole magnesium 20 mg 40 mg PO DAILY 10/23/18 12/02/24 H istory capsule,delayed release clotrimazole-betamethasone 1 1 applic topical BID 2 weeks #45 1 09/11/19 12/02/24 Rx %-0.05 % topical cream grams oxybutynin chloride 15 mg 15 mg PO DAILY 10/27/20 12/02/24 H istory tablet,extended release 24 hr warfarin 1 mg tablet See Rx Instructions PO DAILY 10/2712/02/24 History fluticasone propionate 50 2 spray inhalation DAILY PRN 11/0212/02/24 History mcg/actuation nasal spray,suspension guaifenesin 600 mg tablet, 600 mg PO QDAY 11/02/21 12/02/24 H istory extended release 12 hr (Mucinex) magnesium 30 mg tablet 30 mg PO DAILY 11/02/21 12/02/24 H istory polyethylene glycol 3350 17 17 g PO DAILY PRN 11/02/21 5 History gram/dose oral powder (Miralax) vibegron 75 mg tablet (Gemtesa) 75 mg PO DAILY 01/30/22 12/02/24 H istory meclizine 25 mg tablet 25 mg PO TID PRN dizziness #30 tab s 05/02/22 12/02/24 Rx mirabegron 50 mg tablet,extended 50 mg PO DAILY 06/06/22 12/02/24 H istory release 24 hr (Myrbetriq) ascorbate calcium (vitamin C) 500 500 mg PO DAILY 10/03/22 12/02/24 History mg tablet ferrous sulfate 325 mg (65 mg 325 mg PO DAILY 10/03/22 12/02/24 History iron) tablet prednisone 20 mg tablet 40 mg PO DAILY 10/03/22 12/02/24 H istory fesoterodine 4 mg tablet,extended 4 mg PO DAILY 11/14/23 12/02/24 H istory release 24 hr ondansetron 4 mg disintegrating 4 mg PO Q8H PRN PRN Nausea #10 tab s 09/21/24 12/02/24 Rx tablet Is last menstrual period known: No Post menopausal: Yes Patient : No : No PFSH Medical History Knee injury Incontinence Phlebitis and thrombophlebitis of superficial vessels of lower extremities, bilateral Emphysema lung Anxiety Colonoscopy planned Surgical History Hx of cholecystectomy History of hip replacement Family History Father Lung cancer Social History Smoking Status: Never smoker alcohol intake: never substance use type: does not use caffeine: Yes what type of physical activity do you participate in: none seatbelt use: always do you feel safe at home: Yes additional social history: - Max HPI PESSARY CHECK Details: SINDY SWEENEY is a 79 year old who presents for pessary check. Denies concerns today. Had UTI last month and was constipated with antibiotic. No using miralax daily. History 2 Elective abortions Hx Para 2 Spontaneous abortions Hx # Term Pregnancies Ectopic pregnancies Hx # Pregnancies Multiple births # of living children Past Pregnancies Del. Date Name GA/Weeks Outcome Route Bth Weight Infant Gen Labor Lgth Anesthesia Del Locatn Provider FOB Unknown Kiah-1968 Unknown Charlie-1970 ROS Const Constitutional: Reports system reviewed and no additional complaints, except as documented Eyes Eyes: Reports system reviewed and no additional complaints, except as documented GI GI: Denies abdominal pain or change in bowel habits : Reports as per HPI Exam Const General: cooperative and no acute distress Nutritional Appearance: obese Orientation: oriented x3 External Female Exam: normal external appearance and normal appearance of the urethra Urethra: normal appearance of the urethra Speculum Exam - Vagina: vagina atrophic Other: No excoriations, bleeding or unusual discharge. #3 ring with support and knob removed, cleaned and replaced with trimosan gel. No discomfort with placement Coding Level of (more content not included)... Normal [facility] Breast Complete Unilateralon 10-21-2024 Breast Complete Unilateral [facility] [address] [place], [place] [address] Breast Complete Unilateral MR#: [id number] Acct: [id number] Name: SINDY SWEENEY Rep #: [id number] : 1945 F 79 From: Linda Mcneill MD PCP: Dr. Litzy Vazquez MD Status: REG CLI Study: Breast Complete Unilateral Date of Exam: 10/21 Exam# [id number] Ordering Dr: Litzy Vazquez PROCEDURE: DIAG MAMM W/CAD, UNILAT; BREAST COMPLETE UNILATERAL; LT BRST UNILAT BRUNO ADD ON REASON FOR EXAM: 79-year-old female presents for follow-up of the left breast finding seen on the screening mammogram of 10/08/2024. no family history of breast cancer. TECHNIQUE: Left diagnostic digital breast tomosynthesis with 2D and 3D images. Computer aided detection. Also, targeted left breast ultrasound was performed. COMPARISON: 10/08/2024, 10/04/2022, 09/01/2020 FINDINGS: MAMMOGRAM: The breasts are heterogeneously dense which may obscure small masses. Follow-up examination performed of the left breast finding seen on the screening mammogram 10/08/2024. On the present examination, the asymmetry in the medial left breast at middle depth effaces and likely represents benign overlapping fibroglandular tissues. Otherwise, there are no suspicious findings in the left breast. ULTRASOUND: Ultrasound performed of the medial left breast demonstrates normal fibroglandular tissues. There are no suspicious masses or abnormal cystic elements. US/Breast Complete Unilateral IMPRESSION: There is no mammographic or sonographic evidence of malignancy in the left breast. BI-RADS 2: BENIGN. RECOMMEND ANNUAL MAMMOGRAPHIC SCREENING. Follow-up code: Routine Follow-up Reading Location: [facility] CC: Dr. Litzy Vazquez MD Earth [employer] Operator: Signed Normal [facility] Breast imaging reportOrdered By: Linda Mcneill on 10-21-2024 Study report [facility] [address] [place] [address] DIAG MAMM W/CAD, UNILAT MR#: [id number] Acct: [id number] Name: SINDY SWEENEY Rep #: [id number] : 1945 F 79 From: Lily Mcneill MD PCP: Dr. Litzy Vazquez MD Status: REG CLI Study:DIAG MAMM W/CAD, UNILAT Date of Exam: 10/21/24 Exam# [id number] Ordering Dr: Aakash Vazquez MD PROCEDURE: DIAG MAMM W/CAD, UNILAT; BREAST COMPLETE UNILATERAL; LT BRST UNILAT BRUNO ADD ON REASON FOR EXAM: 79-year-old female presents for follow-up of the left breast finding seen on thescreening mammogram of 10/08/2024. no family history of breast cancer. TECHNIQUE: Left diagnostic digital breast tomosynthesis with 2D and 3D images. Computer aided detection. Also, targeted left breast ultrasound was performed. COMPARISON: 10/08/2024, 10/04/2022, 09/01/2020 FINDINGS: MAMMOGRAM: The breasts are heterogeneously dense which may obscure small masses. Follow-up examination performed of the left breast finding seen on the screening mammogram 10/08/2024. On the present examination, the asymmetry in the medial left breast at middle depth effaces and likely represents benign overlapping fibroglandular tissues. Otherwise, there are no suspicious findings in the left breast. ULTRASOUND: Ultrasound performed of the medial left breast demonstrates normal fibroglandular tissues. There are no suspicious masses or abnormal cystic elements. BI/DIAG MAMM W/CAD, UNILAT IMPRESSION: There is no mammographic or sonographic evidence of malignancy in the left breast. BI-RADS 2: BENIGN. RECOMMEND ANNUAL MAMMOGRAPHIC SCREENING. Follow-up code: Routine Follow-up Reading Location: [facility] CC: Dr. Litzy Vazquez MD ~ Earth Auger Operator: Signed [facility] Study report [facility] Imaging Services [address] [place] [address] Lt Brst Unilat Bruno Add On MR#: [id number] Acct: [id number] Name: SINDY SWEENEY Rep #: [id number] : 1945 F 79 From: Lily Mcneill MD PCP: Dr. Litzy Vazquez MD Status: REG CLI Study:Lt Brst Unilat Bruno Add On Date of Exam : 10/21/24 Exam# [id number] Ordering Dr: Aakash Vazquez MD PROCEDURE: DIAG MAMM W/CAD, UNILAT; BREAST COMPLETE UNILATERAL; LT BRST UNILAT BRUNO ADD ON REASON FOR EXAM: 79-year-old female presents for follow-up of the left breast finding seen on thescreening mammogram of 10/08/2024. no family history of breast cancer. TECHNIQUE: Left diagnostic digital breast tomosynthesis with 2D and 3D images. Computer aided detection. Also, targeted left breast ultrasound was performed. COMPARISON: 10/08/2024, 10/04/2022, 09/01/2020 FINDINGS: MAMMOGRAM: The breasts are heterogeneously dense which may obscure small masses. Follow-up examination performed of the left breast finding seen on the screening mammogram 10/08/2024. On the present examination, the asymmetry in the medial left breast at middle depth effaces and likely represents benign overlapping fibroglandular tissues. Otherwise, there are no suspicious findings in the left breast. ULTRASOUND: Ultrasound performed of the medial left breast demonstrates normal fibroglandular tissues. There are no suspicious masses or abnormal cystic elements. BI/Lt Brst Unilat Bruno Add On IMPRESSION: There is no mammographic or sonographic evidence of malignancy in the left breast. BI-RADS 2: BENIGN. RECOMMEND ANNUAL MAMMOGRAPHIC SCREENING. Follow-up code: Routine Follow-up Reading Location: [facility] CC: Dr. Litzy Vazquez MD ~ Earth Auger Operator: Signed [facility] DIAG MAMM W/CAD, UNILATon DIAG MAMM W/CAD, UNILAT [facility] Imaging Services [address] [place], [place] [id number] DIAG MAMM W/CAD, UNILAT MR#: [id number] Acct: [id number] Name: SINDY SWEENEY Rep #: [id number] : 1945 F 79 From: Linda Mcneill MD PCP: Dr. Litzy Vazquez MD Status: REG CLI Study: DIAG MAMM W/CAD, UNILAT Date of Exam: 10/21/24 Exam# [id number] Ordering Dr: Litzy Vazquez PROCEDURE: DIAG MAMM W/CAD, UNILAT; BREAST COMPLETE UNILATERAL; LT BRST UNILAT BRUNO ADD ON REASON FOR EXAM: 79-year-old female presents for follow-up of the left breast finding seen on the screening mammogram of 10/08/2024. no family history of breast cancer. TECHNIQUE: Left diagnostic digital breast tomosynthesis with 2D and 3D images. Computer aided detection. Also, targeted left breast ultrasound was performed. COMPARISON: 10/08/2024, 10/04/2022, 09/01/2020 FINDINGS: MAMMOGRAM: The breasts are heterogeneously dense which may obscure small masses. Follow-up examination performed of the left breast finding seen on the screening mammogram 10/08/2024. On the present examination, the asymmetry in the medial left breast at middle depth effaces and likely represents benign overlapping fibroglandular tissues. Otherwise, there are no suspicious findings in the left breast. ULTRASOUND: Ultrasound performed of the medial left breast demonstrates normal fibroglandular tissues. There are no suspicious masses or abnormal cystic elements. BI/DIAG MAMM W/CAD, UNILAT IMPRESSION: There is no mammographic or sonographic evidence of malignancy in the left breast. BI-RADS 2: BENIGN. RECOMMEND ANNUAL MAMMOGRAPHIC SCREENING. Follow-up code: Routine Follow-up Reading Location: [facility] CC: Dr. Litzy Vazquez MD Earth Auger Operator: Signed Normal [facility] Lt Brst Unilat Bruno Add Onon 10-21-2024 Lt Brst Unilat Bruno Add On [facility] Imaging Services [address] [place], [place] [address] Lt Brst Unilat Bruno Add On MR#: [id number] Acct: [id number] Name: SINDY SWEENEY Rep #: [id number] : 1945 F 79 From: Linda Mcneill MD PCP: Dr. Litzy Vazquez MD Status: REG CLI Study: Lt Brst Unilat Bruno Add On Date of Exam: 10/21 Exam# [id number] Ordering Dr: Litzy Vazquez PROCEDURE: DIAG MAMM W/CAD, UNILAT; BREAST COMPLETE UNILATERAL; LT BRST UNILAT BRUNO ADD ON REASON FOR EXAM: 79-year-old female presents for follow-up of the left breast finding seen on the screening mammogram of 10/08/2024. no family history of breast cancer. TECHNIQUE: Left diagnostic digital breast tomosynthesis with 2D and 3D images. Computer aided detection. Also, targeted left breast ultrasound was performed. COMPARISON: 10/08/2024, 10/04/2022, 09/01/2020 FINDINGS: MAMMOGRAM: The breasts are heterogeneously dense which may obscure small masses. Follow-up examination performed of the left breast finding seen on the screening mammogram 10/08/2024. On the present examination, the asymmetry in the medial left breast at middle depth effaces and likely represents benign overlapping fibroglandular tissues. Otherwise, there are no suspicious findings in the left breast. ULTRASOUND: Ultrasound performed of the medial left breast demonstrates normal fibroglandular tissues. There are no suspicious masses or abnormal cystic elements. BI/Lt Brst Unilat Bruno Add On IMPRESSION: There is no mammographic or sonographic evidence of malignancy in the left breast. BI-RADS 2: BENIGN. RECOMMEND ANNUAL MAMMOGRAPHIC SCREENING. Follow-up code: Routine Follow-up Reading Location: [facility] CC: Dr. Litzy Vazquez MD Earth Auger Operator: Signed Normal [facility] Dexa Bone Density/Append Ske jerome 10-08-2024 Dexa Bone Density/Append Skel [facility] Imaging Services [address] [place], [place] [address] Dexa Bone Density/Append Skel MR#: [id number] Acct: [id number] Name: SINDY SWEENEY Rep #: [id number] : 1945 F 79 From: Sunitha Pepper PCP: Dr. Litzy Vazquez MD Status: REG CLI Study: Dexa Bone Density/Append Skel Date of Exam: Exam# [id number] Ordering Dr: Litzy Vazquez PROCEDURE: DEXA BONE DENSITY/APPEND SKEL REASON FOR EXAM: F, age 79 y/o . Postmenopausal. TECHNIQUE: DEXA scan of both the right and left forearms. COMPARISON: DEXA examination dated 10/04/2022 FINDINGS: T-SCORES Left forearm: Bone mineral density measures 0.461 grams/centimeter sq. T-score measures -3.9 and Z- score measures -0.6. There has been a significant decrease in the bone mineral density of the distal left forearm by 7.3% since the prior study dated 10/04/2022. Right forearm: Bone mineral density measures 0.443 grams/centimeter sq. T-score measures -4.2 and Z-score measures -0.9. There has been a significant decrease in the bone mineral density of the distal right forearm by 5.9% since the prior study dated 10/04/2022 FRAX* Results: 10 Year Probability of Fracture: Not calculated due to no measurable hip. *FRAX is a trademark of the [employer]'s [employer] for Metabolic Bone Disease, World Health Organization (WHO) Collaborating [employer]. 1-The 10-year probability of fracture may be lower than reported if the patient has received treatment. 2-Major Osteoporotic Fracture: Clinical Spine, Forearm, Hip or Shoulder. The T-scores are also available for review on the [facility] PACS or by accessing the [facility] electronic medical record. BD/Dexa Bone Density/Append Skel IMPRESSION: OSTEOPOROSIS. Reading Location: [facility] CC: Dr. Litzy Vazquez MD Earth Auger Operator: Signed [facility] SCRN MAMM (CAD)W/BRUNO BILATo n 10-08-2024 SCRN MAMM (CAD)W/BRUNO BILAT [facility] Imaging Services [address] [place] [id number] SCRN MAMM (CAD)W/BRUNO BILAT MR#: [id number] Acct: [id number] Name: SINDY SWEENEY Rep #: [id number] : 1945 F 79 From: Sunitha Pepper PCP: Dr. Litzy Vazquez MD Status: REG CLI Study: SCRN MAMM (CAD)W/BRUNO BILAT Date of Exam: 09/20 05/14 Exam# [id number] Ordering Dr: Litzy Vazquez PROCEDURE: SCRN MAMM (CAD)W/BRUNO BILAT REASON FOR EXAM: Screening mammogram TECHNIQUE: Bilateral diagnostic digital breast tomosynthesis with 2D and 3D images. Computer aided detection. COMPARISON: Prior exam(s) dated 10/04/2022 FINDINGS: The breasts are heterogeneously dense which may obscure small masses. There is a new 22 mm density in the medial, middle 3rd aspect of the left breast. Further workup is indicated. There are stable benign-appearing intramammary lymph nodes in the superior outer aspect of the left breast. No suspicious masses, suspicious cluster of calcifications, architectural distortion or secondary sign of malignancy is identified in the right breast. BI/SCRN MAMM (CAD)W/BRUNO BILAT IMPRESSION: BI-RADS 0: INCOMPLETE - NEED ADDITIONAL IMAGING EVALUATION. The patient should return for a rolled CC view and LM view of the left breast as well as a spot compression CC view of the left breast ayo density. Ultrasound will also most likely be needed. Follow-up code: Additional Views obtained/call backs Reading Location: [facility] CC: Dr. Litzy Vazquez MD Earth Auger Operator: Signed [facility] Urine Cultureon 09-24-2024 URC Klebsiella pneumonia e sp pneum [place] Count 80,000-100,000 Klebsiella pneumoniae sp pneum: REACTION Ampicillin Islt SIA Ampicillin+Sulbac Islt SIA 4 S Cefepime Islt SIA <=0.12 S cefTRIAXone Islt SIA <=0.25 S Ciprofloxacin Islt SIA <=0.06 S B-Lactamase Extended Susc Islt NEG Gentamicin Islt SIA <=1 S levoFLOXacin Islt SIA <=0.12 S Meropenem Islt SIA <=0.25 S Nitrofurantoin Islt SIA <=16 S Pip+Tazo Islt SIA <=4 S TMP SMX Islt SIA <=20 S Normal [facility] Comment on above: Performed By: #### M 100.678 #### [facility] [address] [place], [address] Absolute neutrophil countOrd ered By: Haseeb Morales on 09-21-2024 Neutrophils (Bld) [#/Vol] 11.0 10*3/uL High 2.0-7.7 [facility] Albumin to globulin ratioOrd ered By: Haseeb Morales on 09-21-2024 Albumin/Globulin [Mass ratio] 1.1 {ratio} 0.9-2.4 [facility] Basophil percentageOrdered B y: Haseeb Morales on 09-21-2024 Basophils/100 WBC (Bld) 0.2 % 0-1 [facility] Bilirubin Test strip Ql (U)O rdered By: Haseeb Morales on 09-21-2024 Bilirubin Ql (U) Negative Negative [facility] Bilirubin, totalOrdered By: Haseeb Morales on 09-21-2024 Bilirubin [Mass/Vol] 0.60 mg/dL 0.20-1.00 [facility] Comment on above: For patients on eltr ombopag therapy, use of Dimension [place] TBIL is not recommended. Blood urea nitrogen (BUN)/cr eatinine ratioOrdered By: Haseeb Morales on 09-21-2024 Urea nitrogen/Creatinine [Mass ratio] 14.0 mg/mg 10-20 [facility] CBC W/Diff, Automatedon 02-0 -2024 Absolute Lymph 0.39 X10 3/uL Low 0.83-4.51 [facility] Comment on above: Performed By: #### L 500.4050, L100.0100, L501.4020 #### [facility] [address] [place], [address] Absolute Neut 11.0 X10 3/uL High 2.0-7.7 [facility] Comment on above: Performed By: #### L 500.4050, L100.0100, L501.4020 #### [facility] [address] [place], [address] Basophils/100 WBC (Bld) 0.2 % Normal 0-1 [facility] Comment on above: Performed By: #### L 500.4050, L100.0100, L501.4020 #### [facility] [address] [place], [address] Eosinophils/100 WBC (Bld) 0.0 % Normal 0-5 [facility] Comment on above: Performed By: #### L 500.4050, L100.0100, L501.4020 #### [facility] [address] [place], [address] Erythrocyte distribution width (RBC) [Ratio] 13.2 % Normal 11.6-14.6 [facility] Comment on above: Performed By: #### L 500.4050, L100.0100, L501.4020 #### [facility] [address] [place], [address] Hematocrit (Bld) [Volume fraction] 40.4 % Normal 37-47 [facility] Comment on above: Performed By: #### L 500.4050, L100.0100, L501.4020 #### [facility] [address] [place], [address] Hemoglobin (Bld) [Mass/Vol] 13.0 g/dL Normal 12.0-15.0 [facility] Comment on above: Performed By: #### L 500.4050, L100.0100, L501.4020 #### [facility] [address] [place], [address] IG% 0.700 Normal 0.0-0.9 [facility] Comment on above: Result Comment: IG% - Immature Granulocytes (promyelocytes, myelocytes and metamyelocytes) > 1% indicates that a LEFT SHIFT is Present. Performed By: #### L 500.4050, L100.0100, L501.4020 #### [facility] [address] [place], [address] Lymphocytes/100 WBC (Bld) 3.4 % Low 19-41 [facility] Comment on above: Performed By: #### L 500.4050, L100.0100, L501.4020 #### [facility] [address] [place], [address] MCH (RBC) [Entitic mass] 30.9 pg Normal 27.0-32.0 [facility] Comment on above: Performed By: #### L 500.4050, L100.0100, L501.4020 #### [facility] [address] [place], [address] MCHC (RBC) [Mass/Vol] 32.2 g/dL Normal 32-36 [facility] Comment on above: Performed By: #### L 500.4050, L100.0100, L501.4020 #### [facility] [address] [place], [address] MCV (RBC) [Entitic vol] 96.0 fL Normal 81-99 [facility] Comment on above: Performed By: #### L 500.4050, L100.0100, L501.4020 #### [facility] [address] [place], [address] Monocytes/100 WBC (Bld) 1.0 % Normal 0-10 [facility] Comment on above: Performed By: #### L 500.4050, L100.0100, L501.4020 #### [facility] [address] [place], [address] Neutrophils/100 WBC (Bld) 94.7 % High 47-70 [facility] Comment on above: Performed By: #### L 500.4050, L100.0100, L501.4020 #### [facility] [address] [place], [address] Nucleated RBC (Bld) [#/Vol] 0 10*3/uL Normal 0-5 [facility] Comment on above: Performed By: #### L 500.4050, L100.0100, L501.4020 #### [facility] [address] [place], [address] Platelet mean volume (Bld) [Entitic vol] 9.5 fL Normal 6.2-12.0 [facility] Comment on above: Performed By: #### L 500.4050, L100.0100, L501.4020 #### [facility] [address] [place], [address] Platelets (Bld) [#/Vol] 169 10*3/uL Normal 150-450 [facility] Comment on above: Performed By: #### L 500.4050, L100.0100, L501.4020 #### [facility] [address] [place], [address] RBC (Bld) [#/Vol] 4.21 10*6/uL Normal 4.2-5.4 [facility] Comment on above: Performed By: #### L 500.4050, L100.0100, L501.4020 #### [facility] [address] [place], [address] RDW SD 46.1 fl High 35.1-43.9 [facility] Comment on above: Performed By: #### L 500.4050, L100.0100, L501.4020 #### [facility] [address] [place], [address] WBC (Bld) [#/Vol] 11.6 10*3/uL High 4.4-11.0 [facility] Comment on above: Performed By: #### L 500.4050, L100.0100, L501.4020 #### [facility] [address] [place], [address] Carbon dioxide measurementOr dered By: Haseeb Morales on 09-21-2024 CO2 [Moles/Vol] 25.0 mmol/L 21.0-32.0 [facility] Chest PA and Lateralon 09-21 Chest PA and Lateral [facility] Imaging Services [address] [place] [address] Chest PA and Lateral MR#: [id number] Acct: [id number] Name: SINDY SWEENEY Rep #: [id number] : 1945 F 79 From: Doc Herrera MD PCP: Dr. Litzy Vazquez MD Status: [facility] ER Study: Chest PA and Lateral Date of Exam: 09/21/24 Exam# [id number] Ordering Dr: Haseeb Morales DO PROCEDURE: CHEST PA AND LATERAL REASON FOR EXAM: Cough TECHNIQUE: Single frontal image including the chest and abdomen. COMPARISON: Reviewed. FINDINGS: The cardiothymic contour is normal. Patchy left base opacities are unchanged. Bowel gas pattern is normal. No evidence of bowel obstruction or free air. The bones are unremarkable. No radiopaque foreign body is identified. RAD/Chest PA and Lateral IMPRESSION: Stable opacities at the left base are nonspecific. Reading Location: [facility] CC: Dr. Haseeb Morales DO; Dr. Litzy Vazquez MD Earth Auger Operator: Signed Normal [facility] Chloride measurementOrdered By: Haseeb Morales on 09-21-2024 Chloride [Moles/Vol] 105 mmol/L 98-107 [facility] Comprehensive Metabolic Prof ilon 09-21-2024 Albumin [Mass/Vol] 3.6 g/dL Normal 3.2-5.0 [facility] Comment on above: Order Comment: 'TROP ' Serial specimen #1, #2 or #3: 1 Performed By: #### L 500.4050, L100.0100, L501.4020 #### [facility] [address] [place], [address] Albumin/Globulin [Mass ratio] 1.1 {ratio} Normal 0.9-2.4 [facility] Comment on above: Order Comment: 'TROP ' Serial specimen #1, #2 or #3: 1 Performed By: #### L 500.4050, L100.0100, L501.4020 #### [facility] [address] [place], [address] ALK P 78 U/L Normal 45-117 [facility] Comment on above: Order Comment: 'TROP ' Serial specimen #1, #2 or #3: 1 Performed By: #### L 500.4050, L100.0100, L501.4020 #### [facility] [address] [place], [address] ALT [Catalytic activity/Vol] 16 U/L Normal 13-56 [facility] Comment on above: Order Comment: 'TROP ' Serial specimen #1, #2 or #3: 1 Performed By: #### L 500.4050, L100.0100, L501.4020 #### [facility] [address] [place], [address] AST [Catalytic activity/Vol] 17 U/L Normal 15-37 [facility] Comment on above: Order Comment: 'TROP ' Serial specimen #1, #2 or #3: 1 Performed By: #### L 500.4050, L100.0100, L501.4020 #### [facility] [address] [place], [address] Bilirubin [Mass/Vol] 0.60 mg/dL Normal 0.20-1.00 [facility] Comment on above: Order Comment: 'TROP ' Serial specimen #1, #2 or #3: 1 Result Comment: For patients on eltrombopag therapy, use of Dimension [place] TBIL is not recommended. Performed By: #### L 500.4050, L100.0100, L501.4020 #### [facility] [address] [place], [address] BUN/CRE 14.0 RATIO Normal 10-20 [facility] Comment on above: Order Comment: 'TROP ' Serial specimen #1, #2 or #3: 1 Performed By: #### L 500.4050, L100.0100, L501.4020 #### [facility] [address] [place], [address] CA,Total 9.1 mg/dL Normal 8.5-10.1 [facility] Comment on above: Order Comment: 'TROP ' Serial specimen #1, #2 or #3: 1 Performed By: #### L 500.4050, L100.0100, L501.4020 #### [facility] [address] [place], [address] Chloride [Moles/Vol] 105 mmol/L Normal 98-107 [facility] Comment on above: Order Comment: 'TROP ' Serial specimen #1, #2 or #3: 1 Performed By: #### L 500.4050, L100.0100, L501.4020 #### [facility] [address] [place], [address] CO2 [Moles/Vol] 25.0 mmol/L Normal 21.0-32.0 [facility] Comment on above: Order Comment: 'TROP ' Serial specimen #1, #2 or #3: 1 Performed By: #### L 500.4050, L100.0100, L501.4020 #### [facility] [address] [place], [address] Creatinine [Mass/Vol] 0.79 mg/dL Normal 0.55-1.02 [facility] Comment on above: Order Comment: 'TROP ' Serial specimen #1, #2 or #3: 1 Result Comment: The validity of the calculated GFR GFRAA in patients over 70 years has not been determined. Clinical correlation is essential. Performed By: #### L 500.4050, L100.0100, L501.4020 #### [facility] [address] [place], [address] ECRCL 63.59 ml/min Normal [facility] Comment on above: Order Comment: 'TROP ' Serial specimen #1, #2 or #3: 1 Performed By: #### L 500.4050, L100.0100, L501.4020 #### [facility] [address] [place], [address] EST GFR - AA 90 mL/min Normal >60 [facility] Comment on above: Order Comment: 'TROP ' Serial specimen #1, #2 or #3: 1 Result Comment: Afri can [place] GFR Calc Performed By: #### L 500.4050, L100.0100, L501.4020 #### [facility] [address] [place], [address] GAP 7 Normal 5-15 [facility] Comment on above: Order Comment: 'TROP ' Serial specimen #1, #2 or #3: 1 Performed By: #### L 500.4050, L100.0100, L501.4020 #### [facility] [address] [place], [address] GFR/1.73 sq M.predicted among non-blacks MDRD (S/P/Bld) [Vol rate/Area] 74 mL/min/{1.73_m2} Normal >60 [facility] Comment on above: Order Comment: 'TROP ' Serial specimen #1, #2 or #3: 1 Result Comment: Non- GFR Calc Performed By: #### L 500.4050, L100.0100, L501.4020 #### [facility] [address] [place], [address] Globulin (S) [Mass/Vol] 3.3 g/dL Normal 2.2-4.2 [facility] Comment on above: Order Comment: 'TROP ' Serial specimen #1, #2 or #3: 1 Performed By: #### L 500.4050, L100.0100, L501.4020 #### [facility] [address] [place], [address] Glucose [Mass/Vol] 114 mg/dL High 74-106 [facility] Comment on above: Order Comment: 'TROP ' Serial specimen #1, #2 or #3: 1 Result Comment: Fast ing Glucose result from 100 to 125 mg/dL suggests IMPAIRED HOMEOSTASIS per A.D.A. criteria. Performed By: #### L 500.4050, L100.0100, L501.4020 #### [facility] [address] [place], [address] Potassium [Moles/Vol] 4.7 mmol/L Normal 3.5-5.1 [facility] Comment on above: Order Comment: 'TROP ' Serial specimen #1, #2 or #3: 1 Performed By: #### L 500.4050, L100.0100, L501.4020 #### [facility] [address] [place], [address] Sodium [Moles/Vol] 137 mmol/L Normal 136-145 [facility] Comment on above: Order Comment: 'TROP ' Serial specimen #1, #2 or #3: 1 Performed By: #### L 500.4050, L100.0100, L501.4020 #### [facility] [address] [place], [address] T PROT 6.9 g/dL Normal 6.4-8.2 [facility] Comment on above: Order Comment: 'TROP ' Serial specimen #1, #2 or #3: 1 Performed By: #### L 500.4050, L100.0100, L501.4020 #### [facility] [address] [place], [address] Urea nitrogen [Mass/Vol] 11 mg/dL Normal 7-18 [facility] Comment on above: Order Comment: 'TROP ' Serial specimen #1, #2 or #3: 1 Performed By: #### L 500.4050, L100.0100, L501.4020 #### [facility] [address] [place], [address] Emergency Department Summary on 09-21-2024 Emergency Department Summary [facility] Medical Records Department [address] [place] [address] Emergency Department Summary 09/21/24 MR#: [id number] Acct: [id number] Name: SINDY SWEENEY Rep #: [id number] : 1945 79 From: Haseeb Morales DO PCP: Dr. Litzy Vazquez MD Status:REG ER Location: ED HPI History of Present Illness Chief Complaint: Nausea/Vomiting Narrative Narrative: Chief complaint and HPI: Fever, chills, nausea. 79-year-old female with past medical history of iron deficiency anemia presents for evaluation of fever, chills, nausea. Onset of symptoms this morning. Patient states this morning she woke up with bodyaches, nausea, symptomatic fever, chills. She states at baseline she has postnasal drip. She denies any cough, shortness of breath, chest pain, abdominal pain, emesis. States she had a couple episode of nonbloody diarrhea several days ago. Denies any dysuria, hematuria. Patient states she called EMS today because she could not get her chills under control. Has been eating and drinking well until this morning where she has a decreased appetite. Review of systems: See HPI Medications: As listed on the chart Allergies: As listed on the chart PFSH: Per chart Vital signs: As listed on the chart. Reviewed. Physical exam: Gen: A O x3, NAD Head: Normocephalic, atraumatic Eyes: No sclera icterus, conjunctiva clear, PERRL, EOMI ENT: Mildly dry mucous membranes, posterior oropharynx unremarkable Neck: Trachea midline, No JVD, Full ROM, No meningismus CV: RRR, no murmurs, no peripheral edema Resp: Lungs CTA BL, no w/r/c GI: Abd soft, non-distended, non-tender, no r/r/g Musc: Full ROM, no deformity Skin: Warm, dry, no rash Neuro: Alert, oriented, grossly intact, sensation intact Psych: Cooperative, appropriate mood and affect [facility] Medical History Knee injury Incontinence Phlebitis and thrombophlebitis of superficial vessels of lower extremities, bilateral Emphysema lung Anxiety Colonoscopy planned Home Medications ???Medication ???Instructions ???Recorded ???Last Taken ???Type acetaminophen 500 mg tablet 1,000 mg PO BID PRN Pain 03/09/15 10/23/18 History albuterol sulfate 90 mcg/actuation 1 puff inhalation Q4H PRN PRN So b 12/31/16 10/21/18 History aerosol inhaler /Or Wheezing buspirone 10 mg tablet 10 mg PO TID 08/27/18 10/23/18 His tory esomeprazole magnesium 20 mg 40 mg PO DAILY 10/23/18 10/23/18 H istory capsule,delayed release clotrimazole-betamethasone 1 1 applic topical BID 2 weeks #45 1 09/11/19 Unknown Rx %-0.05 % topical cream grams oxybutynin chloride 15 mg 15 mg PO DAILY 10/27/20 Unknown Hi story tablet,extended release 24 hr warfarin 1 mg tablet See Rx Instructions PO DAILY 10/27 Unknown History fluticasone propionate 50 2 spray inhalation DAILY PRN 11/02 Unknown History mcg/actuation nasal spray,suspension guaifenesin 600 mg tablet, 600 mg PO QDAY 11/02/21 Unknown Hi story extended release 12 hr (Mucinex) magnesium 30 mg tablet 30 mg PO DAILY 11/02/21 Unknown Hi story polyethylene glycol 3350 17 17 g PO DAILY PRN 11/02/21 Unknown History gram/dose oral powder (Miralax) vibegron 75 mg tablet (Gemtesa) 75 mg PO DAILY 01/30/22 Unknown Hi story meclizine 25 mg tablet 25 mg PO TID PRN dizziness #30 tab s 05/02/22 Unknown Rx mirabegron 50 mg tablet,extended 50 mg PO DAILY 06/06/22 Unknown Hi story release 24 hr (Myrbetriq) ascorbate calcium (vitamin C) 500 500 mg PO DAILY 10/03/22 Unknown History mg tablet ferrous sulfate 325 mg (65 mg 325 mg PO DAILY 10/03/22 Unknown H istory iron) tablet prednisone 20 mg tablet 40 mg PO DAILY 10/03/22 Unknown Hi story fesoterodine 4 mg tablet,extended 4 mg PO DAILY 11/14/23 Unknown Hi story release 24 hr Allergy/AdvReac Type Severity Reaction Status Date / Time latex AdvReac Rash Verified 07/29/24 11:11 Family History Father Lung cancer Surgical History Hx of cholecystectomy History of hip replacement Social History Smoking Status: Never smoker alcohol intake: never substance use type: does not use caffeine: Yes what type of physical activity do you participate in: none seatbelt use: always do you feel safe at home: Yes additional social history: - Max EXAM Physical Exam Const Vital Signs: 09/21/24 07:10 09/21/24 09:08 09/21/24 10:08 Temperature 98.2 F 98.6 F Temperature Source Oral Oral Pulse Rate 95 108 H 107 H Respiratory Rate 20 H 20 H 23 H Blood Pressure 164/84 H 132/60 H 132/64 H Blood Pressure Mean 110 84 8 (more content not included)... Normal [facility] Eosinophil percentageOrdered By: Haseeb Morales on 09-21-2024 Eosinophils/100 WBC (Bld) 0.0 % 0-5 [facility] Epithelial cells.squamous LM Ql (Urine sed)Ordered By: Haseeb Morales on 09-21-2024 Epithelial cells.squamous LM.HPF (Urine sed) [#/Area] 0 /[HPF] 5-10 [facility] Erythrocyte distribution wid th ratioOrdered By: Haseeb Morales on 09-21-2024 Erythrocyte distribution width (RBC) [Ratio] 13.2 % 11.6-14.6 [facility] Erythrocyte distribution wid th standard deviationOrdered By: Haseeb Méndez on 09-21-2024 Erythrocyte distribution width (RBC) [Entitic vol] 46.1 fL High 35.1-43.9 [facility] Estimated glomerular filtrat ion rate (GFR) AmericanOrdered By: Haseeb Morales on 09-21-2024 Estimated GFR (MDRD) Amer 90 mL/min >60 [facility] Comment on above: GFR Calc Estimation of creatinine cynthia aranceOrdered By: Haseeb Morales on 09-21-2024 Estimated Creatinine Clearance Calc 63.59 ml/min [facility] Glomerular filtration rate ( GFR) estimationOrdered By: Haseeb Morales on 09-21-2024 Estimated GFR (MDRD) Non-Af Amer 74 mL/min >60 [facility] Comment on above: Non- GFR Calc Glucose Ql (U)Ordered By: Mehran Morales on 09-21-2024 Urine Glucose (UA) Normal mg/dl Normal [facility] Glucose measurementOrdered B y: Haseeb Morales on 09-21-2024 Glucose [Mass/Vol] 114 mg/dL High 74-106 [facility] Comment on above: Fasting Glucose resu lt from 100 to 125 mg/dL suggests IMPAIRED HOMEOSTASIS per A.D.A. criteria. Hematocrit Auto (Bld) [Volum e fraction]Ordered By: Haseeb Morales on 09-21-2024 Hematocrit (Bld) [Volume fraction] 40.4 % 37-47 [facility] Hemoglobin measurementOrdere d By: Haseeb Morales on 09-21-2024 Hemoglobin (Bld) [Mass/Vol] 13.0 g/dL 12.0-15.0 [facility] Immature granulocytes/100 WB C Auto (Bld)Ordered By: Haseeb Yandel on 09-21-2024 Immature granulocytes/100 WBC (Bld) 0.700 % 0.0-0.9 [facility] Comment on above: IG% - Immature Granu locytes (promyelocytes, myelocytes and metamyelocytes) > 1% indicates that a LEFT SHIFT is Present. Influenza virus A and B and SARS-CoV-2 (COVID-19) and Respiratory syncytial virus RNAOrdered By: [facility] CenterYandel on 09-21-2024 SARS-CoV-2 (COVID-19) RNA CHRISTOPH+probe Ql (Unsp spec) [facility] Ketones Test strip Ql (U)Ord ered By: [facility] on 09-21-2024 Ketones Ql (U) Negative Negative [facility] L501.4020on 09-21-2024 TROPONIN-I HS 8 pg/mL Normal 3.0-54.0 [facility] Comment on above: Order Comment: 'TROP ' Serial specimen #1, #2 or #3: 1 Result Comment: Plea se Note: New Test Units and Gender Specific Reference Ranges. For more information see Policy Stat Procedure [place] High Sensitivity Troponin (TNIH) and attachments. Performed By: #### L 500.4050, L100.0100, L501.4020 ####[facility] [address] [facility] [place], [address] Laboratory - Chemistry and C hemistry - challengeOrdered By: Haseeb Morales on 09-21-2024 AST [Catalytic activity/Vol] 17 U/L 15-37 [facility] Lymphocytes Auto (Unsp spec) [#/Vol]Ordered By: Haseeb Morales on 09-21-2024 Lymphocytes (Bld) [#/Vol] 0.39 10*3/uL Low 0.83-4.51 [facility] Lymphocytes/100 WBC Auto (Un sp spec)Ordered By: Haseeb Morales on 09-21-2024 Lymphocytes/100 WBC (Bld) 3.4 % Low 19-41 [facility] M100.678on 09-21-2024 M100.678 Pending SARS-CoV-2 (COVID 19) Negative INFLUENZA A Negative INFLUENZA B Negative RSV PCR Negative Normal [facility] Comment on above: Performed By: #### M 100.678 #### [facility] [address] [place], [place], [id number] MCV (mean corpuscular volume ) determinationOrdered By: Haseeb Morales on 09-21-2024 MCV (RBC) [Entitic vol] 96.0 fL 81-99 [facility] Mean corpuscular hemoglobin (MCH) determinationOrdered By: Haseeb Morales on 09-21-2024 MCH (RBC) [Entitic mass] 30.9 pg 27.0-32.0 [facility] Mean corpuscular hemoglobin concentration (MCHC) determinationOrdered By: Haseeb Morales on 09-21-2024 MCHC (RBC) [Mass/Vol] 32.2 g/dL 32-36 [facility] Mean platelet volume determi nationOrdered By: Haseeb Morales on 09-21-2024 Platelet mean volume (Bld) [Entitic vol] 9.5 fL 6.2-12.0 [facility] Microscopic analysis of urin e for red blood cells (RBC)Ordered By: Haseeb Morales on 09-21-2024 Urine RBC 5-10 SEEN /hpf 0-5 [facility] Monocyte percentageOrdered B y: Haseeb Morales on 09-21-2024 Monocytes/100 WBC (Bld) 1.0 % 0-10 [facility] Mucus LM Ql (Urine sed)Order ed By: Haseeb Morales on 09-21-2024 Mucus Ql (Urine sed) 0 SEEN /hpf [facility] Neutrophil percentageOrdered By: Haseeb Morales on 09-21-2024 Neutrophils/100 WBC (Bld) 94.7 % High 47-70 [facility] Nitrite Test strip Ql (U)Ord ered By: Haseeb Morales on 09-21-2024 Nitrite Ql (U) Negative Negative [facility] Nucleated red blood cell per centageOrdered By: Haseeb Morales on 09-21-2024 Nucleated RBC/100 WBC (Bld) [Ratio] 0 % 0-5 [facility] Platelet countOrdered By: Mehran Morales on 09-21-2024 Platelets (Bld) [#/Vol] 169 10*3/uL 150-450 [facility] Potassium measurementOrdered By: Haseeb Morales on 09-21-2024 Potassium [Moles/Vol] 4.7 mmol/L 3.5-5.1 [facility] Protein Test strip Ql (U)Ord ered By: Haseeb Morales on 09-21-2024 Protein Ql (U) 100 mg/dl High Negative [facility] RBC Auto (Bld) [#/Vol]Ordere d By: Haseeb Morales on 09-21-2024 RBC (Bld) [#/Vol] 4.21 10*6/uL 4.2-5.4 [facility] Serum anion gap measurementO rdered By: Haseeb Morales on 09-21-2024 Anion gap [Moles/Vol] 7 mmol/L 5-15 [facility] Serum globulin measurementOr dered By: Haseeb Morales on 09-21-2024 Globulin (S) [Mass/Vol] 3.3 g/dL 2.2-4.2 [facility] Serum or plasma alanine jerry otransferase (ALT) measurementOrdered By: Haseeb Morales on 09-21-2024 ALT [Catalytic activity/Vol] 16 U/L 13-56 [facility] Serum or plasma albumin devin urement (mass/volume)Ordered By: Haseeb Méndez on 09-21-2024 Albumin [Mass/Vol] 3.6 g/dL 3.2-5.0 [facility] Serum or plasma alkaline albaro sphatase measurementOrdered By: Haseeb Morales on 09-21-2024 ALP [Catalytic activity/Vol] 78 U/L 45-117 [facility] Serum or plasma calcium devin urement (mass/volume)Ordered By: Haseeb Méndez on 09-21-2024 Calcium [Mass/Vol] 9.1 mg/dL 8.5-10.1 [facility] Serum or plasma creatinine m easurement (mass/volume)Ordered By: Haseeb Méndez on 09-21-2024 Creatinine [Mass/Vol] 0.79 mg/dL 0.55-1.02 [facility] Comment on above: The validity of the calculated GFR & GFRAA in patients over 70 years has not been determined. Clinical correlation is essential. Serum or plasma urea nitroge n measurement (mass/volume)Ordered By: Haseeb Morales on 09-21-2024 Urea nitrogen [Mass/Vol] 11 mg/dL 7-18 [facility] Sodium levelOrdered By: Kushal Morales on 09-21-2024 Sodium [Moles/Vol] 137 mmol/L 136-145 [facility] Total proteinOrdered By: Rodolfo Morales on 09-21-2024 Protein [Mass/Vol] 6.9 g/dL 6.4-8.2 [facility] Troponin IOrdered By: Haseeb Morales on 09-21-2024 Troponin I High Sensitivity 8 pg/mL 3.0-54.0 [facility] Comment on above: Please Note: New [place] t Units and Gender Specific Reference Ranges. For more information see Policy Stat Procedure [place] High Sensitivity Troponin (TNIH) and attachments. Urinalysis, Completeon 09-21 RBC 5-10 SEEN Normal 0-5 [facility] Comment on above: Order Comment: COLLE CTOR TO SPECIFY Performed By: #### L 400.0001 #### [facility] [address] [place], [address] BACTERIA 4+ /hpf Normal None Seen [facility] Comment on above: Order Comment: FAWN CTOR TO SPECIFY Performed By: #### L 400.0001 #### [facility] [address] [place], [address] WBC >100 SEEN Normal 0-5 [facility] Comment on above: Order Comment: FAWN CTOR TO SPECIFY Performed By: #### L 400.0001 #### [facility] [address] [place], [address] EPI,SQUAMOUS 0 SEEN Normal 5-10 [facility] Comment on above: Order Comment: FAWN CTOR TO SPECIFY Performed By: #### L 400.0001 #### [facility] [address] [place], [address] Mucus Ql (Urine sed) 0 SEEN Normal [facility] Comment on above: Order Comment: FAWN CTOR TO SPECIFY Performed By: #### L 400.0001 #### [facility] [address] [place], [address] Urine blood detectionOrdered By: Haseeb Morales on 09-21-2024 Urine Occult Blood 150 /ul High Negative [facility] Urine clarityOrdered By: Rodolfo Morales on 09-21-2024 Clarity (U) Cloudy Clear [facility] Urine color determinationOrd ered By: Haseeb Morales on 09-21-2024 Color (U) Yellow Yellow [facility] Urine cultureOrdered By: Rodolfo Morales on 09-21-2024 Bacteria identified Cx Nom (U) Klebsiella pneumoniae sp pneum Abnormal [facility] Urine leukocyte esterase det ection by dipstickOrdered By: Haseeb Morales on 09-21-2024 Leukocyte esterase Test strip Ql (U) 100 /ul High Negative [facility] Urine pHOrdered By: Haseeb Humphries on 09-21-2024 pH (U) 6.5 [pH] 5.0 - 8.0 [facility] Urine sediment bacteria coun t by microscopy (number/high power field)Ordered By: Haseeb Morales on 09-21-2024 Bacteria LM.HPF (Urine sed) [#/Area] 4 /[HPF] None Seen [facility] Urine specific gravity measu rementOrdered By: [facility]JanellDev on 09-21-2024 Specific gravity (U) [Rel density] 1.010 1.002-1.03 0 [facility] Urobilinogen Ql (U)Ordered B y: [facility] on 09-21-2024 Urine Urobilinogen Normal mg/dl Normal [facility] White blood cell (WBC) count Ordered By: [facility] Center[facility]ose[facility] on 09-21-2024 WBC (Bld) [#/Vol] 11.6 10*3/uL High 4.4-11.0 [facility] White blood cell countOrdere d By: Haseeb Morales on 09-21-2024 Urine WBC >100 SEEN /hpf 0-5 [facility] Assistant Center Director Office Visit Reporton 07-29-2024 Assistant Center Director Office Visit Report [facility] [address], [facility] [address] [place] [address] OFFICE VISIT Date of Service: 07/29/24 MR#: [id number] Acct: [id number] Name: SINDY SWEENEY Shyla Rep #: [id number] : 1945 Provider: PATI villavicencio Age/Sex: 78/F Location: [facility] Status: Signed Intake Vital Signs 04/15/24 13:33 07/29/24 11:11 07/29/24 11:18 Height 5 ft 5 in 5 ft 5 in 5 ft 5 in Weight: 200 lb BMI 33.3 BP 134/78 H Intake Visit Reasons: PESSARY CHECK Chief Complaint: Pessary check Patient Portal Representative Required: No Is patient in pain?: No Allergies latex Adverse Reaction (Verified 07/29/24 11:11) Rash Medications ???Medication ???Instructions ???Recorded ???Confirmed ???Type acetaminophen 500 mg tablet 1,000 mg PO BID PRN Pain 03/09/15 07/29/24 History albuterol sulfate 90 mcg/actuation 1 puff inhalation Q4H PRN PRN Sob 12/31/16 07/29/24 History aerosol inhaler /Or Wheezing buspirone 10 mg tablet 10 mg PO TID 08/27/18 07/29/24 History esomeprazole magnesium 20 mg 40 mg PO DAILY 10/23/18 07/29/24 History capsule,delayed release clotrimazole-betamethasone 1 1 applic topical BID 2 weeks #45 07/12/20 07/29/24 Rx %-0.05 % topical cream grams oxybutynin chloride 15 mg 15 mg PO DAILY 10/27/20 07/29/24 History tablet,extended release 24 hr warfarin 1 mg tablet See Rx Instructions PO DAILY 10/27/20 07/29/24 History fluticasone propionate 50 2 spray inhalation DAILY PRN 11/02/21 07/29/24 History mcg/actuation nasal spray,suspension guaifenesin 600 mg tablet, 600 mg PO QDAY 11/02/21 07/29/24 History extended release 12 hr (Mucinex) magnesium 30 mg tablet 30 mg PO DAILY 11/02/21 07/29/24 History polyethylene glycol 3350 17 17 g PO DAILY PRN 11/02/21 07/29/24 History gram/dose oral powder (Miralax) vibegron 75 mg tablet (Gemtesa) 75 mg PO DAILY 01/30/22 07/29/24 History meclizine 25 mg tablet 25 mg PO TID PRN dizziness #30 tabs 05/02/22 07/29/24 Rx mirabegron 50 mg tablet,extended 50 mg PO DAILY 06/06/22 07/29/24 History release 24 hr (Myrbetriq) ascorbate calcium (vitamin C) 500 500 mg PO DAILY 10/03/22 07/29/24 History mg tablet ferrous sulfate 325 mg (65 mg 325 mg PO DAILY 10/03/22 07/29/24 History iron) tablet prednisone 20 mg tablet 40 mg PO DAILY 10/03/22 07/29/24 History fesoterodine 4 mg tablet,extended 4 mg PO DAILY 11/14/23 07/29/24 History release 24 hr Is last menstrual period known: No Post menopausal: Yes Patient : No : No [facility] Medical History Knee injury Incontinence Phlebitis and thrombophlebitis of superficial vessels of lower extremities, bilateral Emphysema lung Anxiety Colonoscopy planned Surgical History Hx of cholecystectomy History of hip replacement Family History Father Lung cancer Social History Smoking Status: Never smoker alcohol intake: never substance use type: does not use caffeine: Yes what type of physical activity do you participate in: none seatbelt use: always do you feel safe at home: Yes additional social history: - Max [facility] PESSARY CHECK Details: SINDY SWEENEY is a 78 year old who presents for pessary check. History 2 Elective abortions Hx Para 2 Spontaneous abortions Hx # Term Pregnancies Ectopic pregnancies Hx # Pregnancies Multiple births # of living children Past Pregnancies Del. Date Name GA/Weeks Outcome Route Bth Weight Gen Labor Lgth Anesthesia Del Locatn Provider FOB Unknown Kiah-1968 Unknown Charlie-1970 ROS Const Constitutional: Reports system reviewed and no additional complaints, except as documented Eyes Eyes: Reports system reviewed and no additional complaints, except as documented GI GI: Denies abdominal pain or change in bowel habits : Reports as per HPI Exam Const General: cooperative and no acute distress Nutritional Appearance: obese Orientation: oriented x3 External Female Exam: normal external appearance and normal appearance of the urethra Urethra: normal appearance of the urethra Speculum Exam - Vagina: vagina atrophic Other: No excoriations, bleeding or unusual discharge. #3 ring with support and knob removed, cleaned and replaced with trimosan gel. No discomfort with placement Coding Level of Care Code Off vis,est,level 3 Diagnoses Pessary maintenance Z46.89 Cystocele and rectocele with incomplete uterovaginal prolapse N81.2 Stress incontinence of urine N39.3 Incontinence type: urinary Urinary Incontinence type: stress incontinence (more content not included)... Normal [facility] CBC W/Diff, Automatedon 10-2 Absolute Lymph 1.08 X10 3/uL Normal 0.83-4.51 [facility] Comment on above: Order Comment: BMP G OES TO DR.WYNESKITHE FERNANDES GOES TO DR VAZQUEZ Performed By: #### L 500.4050, L503.6150, L300.3900, L501.2300, L500.4100, L503.0105, L509.1000, L501.5200, L501.9520, L506.1000, L100.0100, L100.9950, L503.6550 ####[facility] [address] [place], [address] Absolute Neut 6.6 X10 3/uL Normal 2.0-7.7 [facility] Comment on above: Order Comment: BMP G OES TO DR.WYNESKITHE FERNANDES GOES TO DR VAZQUEZ Performed By: #### L 500.4050, L503.6150, L300.3900, L501.2300, L500.4100, L503.0105, L509.1000, L501.5200, L501.9520, L506.1000, L100.0100, L100.9950, L503.6550 ####[facility] [address] [place], [address] Basophils/100 WBC (Bld) 0.2 % Normal 0-1 [facility] Comment on above: Order Comment: BMP G OES TO DR.WYNESKITHE FERNANDES GOES TO DR VAZQUEZ Performed By: #### L 500.4050, L503.6150, L300.3900, L501.2300, L500.4100, L503.0105, L509.1000, L501.5200, L501.9520, L506.1000, L100.0100, L100.9950, L503.6550 ####[facility] [address] [place], [address] Eosinophils/100 WBC (Bld) 1.5 % Normal 0-5 [facility] Comment on above: Order Comment: BMP G OES TO DR.WYNESKITHE FERNANDES GOES TO DR VAZQUEZ Performed By: #### L 500.4050, L503.6150, L300.3900, L501.2300, L500.4100, L503.0105, L509.1000, L501.5200, L501.9520, L506.1000, L100.0100, L100.9950, L503.6550 ####[facility] [address] [place], [place], [phone] Erythrocyte distribution width (RBC) [Ratio] 12.8 % Normal 11.6-14.6 [facility] Comment on above: Order Comment: BMP G OES TO DR.WYNESKITHE FERNANDES GOES TO DR VAZQUEZ Performed By: #### L 500.4050, L503.6150, L300.3900, L501.2300, L500.4100, L503.0105, L509.1000, L501.5200, L501.9520, L506.1000, L100.0100, L100.9950, L503.6550 ####[facility] [address] [place], [place], [phone] Hematocrit (Bld) [Volume fraction] 38.7 % Normal 37-47 [facility] Comment on above: Order Comment: BMP G OES TO DR.WYNESKITHE FERNANDES GOES TO DR VAZQUEZ Performed By: #### L 500.4050, L503.6150, L300.3900, L501.2300, L500.4100, L503.0105, L509.1000, L501.5200, L501.9520, L506.1000, L100.0100, L100.9950, L503.6550 ####[facility] [address] [place], [place], [phone] Hemoglobin (Bld) [Mass/Vol] 12.4 g/dL Normal 12.0-15.0 [facility] Comment on above: Order Comment: BMP G OES TO DR.WYNESKITHE FERNANDES GOES TO DR VAZQUEZ Performed By: #### L 500.4050, L503.6150, L300.3900, L501.2300, L500.4100, L503.0105, L509.1000, L501.5200, L501.9520, L506.1000, L100.0100, L100.9950, L503.6550 ####[facility] [address] [place], [address] IG% 0.200 Normal 0.0-0.9 [facility] Comment on above: Order Comment: BMP G OES TO DR.WYNESKITHE FERNANDES GOES TO DR VAZQUEZ Result Comment: IG% - Immature Granulocytes (promyelocytes, myelocytes and metamyelocytes) > 1% indicates that a LEFT SHIFT is Present. Performed By: #### L 500.4050, L503.6150, L300.3900, L501.2300, L500.4100, L503.0105, L509.1000, L501.5200, L501.9520, L506.1000, L100.0100, L100.9950, L503.6550 ####[facility] [address] [place], [address] Lymphocytes/100 WBC (Bld) 12.7 % Low 19-41 [facility] Comment on above: Order Comment: BMP G OES TO DR.WYNESKITHE FERNANDES GOES TO DR VAZQUEZ Performed By: #### L 500.4050, L503.6150, L300.3900, L501.2300, L500.4100, L503.0105, L509.1000, L501.5200, L501.9520, L506.1000, L100.0100, L100.9950, L503.6550 ####[facility] [address] [place], [address] MCH (RBC) [Entitic mass] 31.0 pg Normal 27.0-32.0 [facility] Comment on above: Order Comment: BMP G OES TO DR.WYNESKITHE FERNANDES GOES TO DR VAZQUEZ Performed By: #### L 500.4050, L503.6150, L300.3900, L501.2300, L500.4100, L503.0105, L509.1000, L501.5200, L501.9520, L506.1000, L100.0100, L100.9950, L503.6550 ####[facility] [address] [place], [address] MCHC (RBC) [Mass/Vol] 32.0 g/dL Normal 32-36 [facility] Comment on above: Order Comment: BMP G OES TO DR.WYNESKITHE FERNANDES GOES TO DR VAZQUEZ Performed By: #### L 500.4050, L503.6150, L300.3900, L501.2300, L500.4100, L503.0105, L509.1000, L501.5200, L501.9520, L506.1000, L100.0100, L100.9950, L503.6550 ####[facility] [address] [place], [address] MCV (RBC) [Entitic vol] 96.8 fL Normal 81-99 [facility] Comment on above: Order Comment: BMP G OES TO DR.WYNESKITHE FERNANDES GOES TO DR VAZQUEZ Performed By: #### L 500.4050, L503.6150, L300.3900, L501.2300, L500.4100, L503.0105, L509.1000, L501.5200, L501.9520, L506.1000, L100.0100, L100.9950, L503.6550 ####[facility] [address] [place], [place], [phone] Monocytes/100 WBC (Bld) 7.3 % Normal 0-10 [facility] Comment on above: Order Comment: BMP G OES TO DR.WYNESKITHE FERNANDES GOES TO DR VAZQUEZ Performed By: #### L 500.4050, L503.6150, L300.3900, L501.2300, L500.4100, L503.0105, L509.1000, L501.5200, L501.9520, L506.1000, L100.0100, L100.9950, L503.6550 ####[facility] [address] [place], [address] Neutrophils/100 WBC (Bld) 78.1 % High 47-70 [facility] Comment on above: Order Comment: BMP G OES TO DR.WYNESKITHE FERNANDES GOES TO DR VAZQUEZ Performed By: #### L 500.4050, L503.6150, L300.3900, L501.2300, L500.4100, L503.0105, L509.1000, L501.5200, L501.9520, L506.1000, L100.0100, L100.9950, L503.6550 ####[facility] [address] [facility] [place], [address] Nucleated RBC (Bld) [#/Vol] 0 10*3/uL Normal 0-5 [facility] Comment on above: Order Comment: BMP G OES TO DR.WYNESKITHE FERNANDES GOES TO DR VAZQUEZ Performed By: #### L 500.4050, L503.6150, L300.3900, L501.2300, L500.4100, L503.0105, L509.1000, L501.5200, L501.9520, L506.1000, L100.0100, L100.9950, L503.6550 ####[facility] [address] [facility] [place], [address] Platelet mean volume (Bld) [Entitic vol] 9.1 fL Normal 6.2-12.0 [facility] Comment on above: Order Comment: BMP G OES TO DR.WYNESKITHE FERNANDES GOES TO DR VAZQUEZ Performed By: #### L 500.4050, L503.6150, L300.3900, L501.2300, L500.4100, L503.0105, L509.1000, L501.5200, L501.9520, L506.1000, L100.0100, L100.9950, L503.6550 ####[facility] [address] [place], [place], [phone] Platelets (Bld) [#/Vol] 238 10*3/uL Normal 150-450 [facility] Comment on above: Order Comment: BMP G OES TO DR.WYNESKITHE FERNANDES GOES TO DR VAZQUEZ Performed By: #### L 500.4050, L503.6150, L300.3900, L501.2300, L500.4100, L503.0105, L509.1000, L501.5200, L501.9520, L506.1000, L100.0100, L100.9950, L503.6550 ####[facility] [address] [place], [place], [phone] RBC (Bld) [#/Vol] 4.00 10*6/uL Low 4.2-5.4 [facility] Comment on above: Order Comment: BMP G OES TO DR.WYNESKITHE FERNANDES GOES TO DR VAZQUEZ Performed By: #### L 500.4050, L503.6150, L300.3900, L501.2300, L500.4100, L503.0105, L509.1000, L501.5200, L501.9520, L506.1000, L100.0100, L100.9950, L503.6550 ####[facility] [address] [place], [place], [phone] RDW SD 46.2 fl High 35.1-43.9 [facility] Comment on above: Order Comment: BMP G OES TO DR.WYNESKITHE FERNANDES GOES TO DR VAZQUEZ Performed By: #### L 500.4050, L503.6150, L300.3900, L501.2300, L500.4100, L503.0105, L509.1000, L501.5200, L501.9520, L506.1000, L100.0100, L100.9950, L503.6550 ####[facility] [address] [place], [place], [phone] WBC (Bld) [#/Vol] 8.5 10*3/uL Normal 4.4-11.0 [facility] Comment on above: Order Comment: BMP G OES TO DR.WYNESKITHE FERNANDES GOES TO DR VAZQUEZ Performed By: #### L 500.4050, L503.6150, L300.3900, L501.2300, L500.4100, L503.0105, L509.1000, L501.5200, L501.9520, L506.1000, L100.0100, L100.9950, L503.6550 ####[facility] [address] [facility] [address] [place], [place], [phone] Comprehensive Metabolic Prof ilon 06-12-2024 Albumin [Mass/Vol] 3.7 g/dL Normal 3.2-5.0 [facility] Comment on above: Order Comment: Order Date: 06/12/24Order Info: 0667-1 - BMPBMP GOES TO DR.WYNESKITHE FERNANDES GOES TO DR VAZQUEZ Performed By: #### L 500.4050, L503.6150, L300.3900, L501.2300, L500.4100, L503.0105, L509.1000, L501.5200, L501.9520, L506.1000, L100.0100, L100.9950, L503.6550 ####[facility] [address] [facility] [address] [place], [place], [phone] Albumin/Globulin [Mass ratio] 1.3 {ratio} Normal 0.9-2.4 [facility] Comment on above: Order Comment: Order Date: 06/12/24Order Info: 0667-1 - BMPBMP GOES TO DR.WYNESKITHE FERNANDES GOES TO DR VAZQUEZ Performed By: #### L 500.4050, L503.6150, L300.3900, L501.2300, L500.4100, L503.0105, L509.1000, L501.5200, L501.9520, L506.1000, L100.0100, L100.9950, L503.6550 ####[facility] [address] [place], [place], [phone] ALK P 71 U/L Normal 45-117 [facility] Comment on above: Order Comment: Order Date: 06/12/24Order Info: 0667-1 - BMPBMP GOES TO DR.WYNESKITHE FERNANDES GOES TO DR VAZQUEZ Performed By: #### L 500.4050, L503.6150, L300.3900, L501.2300, L500.4100, L503.0105, L509.1000, L501.5200, L501.9520, L506.1000, L100.0100, L100.9950, L503.6550 ####[facility] [address] [place], [place], [phone] ALT [Catalytic activity/Vol] 34 U/L Normal 13-56 [facility] Comment on above: Order Comment: Order Date: 06/12/24Order Info: 0667-1 - BMPBMP GOES TO DR.WYNESKITHE FERNANDES GOES TO DR VAZQUEZ Performed By: #### L 500.4050, L503.6150, L300.3900, L501.2300, L500.4100, L503.0105, L509.1000, L501.5200, L501.9520, L506.1000, L100.0100, L100.9950, L503.6550 ####[facility] [address] [place], [place], [phone] AST [Catalytic activity/Vol] 37 U/L Normal 15-37 [facility] Comment on above: Order Comment: Order Date: 06/12/24Order Info: 0667-1 - BMPBMP GOES TO DR.WYNESKITHE FERNANDES GOES TO DR VAZQUEZ Performed By: #### L 500.4050, L503.6150, L300.3900, L501.2300, L500.4100, L503.0105, L509.1000, L501.5200, L501.9520, L506.1000, L100.0100, L100.9950, L503.6550 ####[facility] [address] [place], [place], [phone] Bilirubin [Mass/Vol] 0.40 mg/dL Normal 0.20-1.00 [facility] Comment on above: Order Comment: Order Date: 06/12/24Order Info: 0667-1 - BMPBMP GOES TO DR.WYNESKITHE FERNANDES GOES TO DR VAZQUEZ Result Comment: For patients on eltrombopag therapy, use of Dimension [place] TBIL is not recommended. Performed By: #### L 500.4050, L503.6150, L300.3900, L501.2300, L500.4100, L503.0105, L509.1000, L501.5200, L501.9520, L506.1000, L100.0100, L100.9950, L503.6550 ####[facility] [address] [place], [place], [phone] BUN/CRE 18.2 RATIO Normal 10-20 [facility] Comment on above: Order Comment: Order Date: 06/12/24Order Info: 0667-1 - BMPBMP GOES TO DR.WYNESKITHE FERNANDES GOES TO DR VAZQUEZ Performed By: #### L 500.4050, L503.6150, L300.3900, L501.2300, L500.4100, L503.0105, L509.1000, L501.5200, L501.9520, L506.1000, L100.0100, L100.9950, L503.6550 ####[facility] [address] [place], [place], [phone]) CA,Total 9.5 mg/dL Normal 8.5-10.1 [facility] Comment on above: Order Comment: Order Date: 06/12/24Order Info: 0667-1 - BMPBMP GOES TO DR.WYNESKITHE FERNANDES GOES TO DR VAZQUEZ Performed By: #### L 500.4050, L503.6150, L300.3900, L501.2300, L500.4100, L503.0105, L509.1000, L501.5200, L501.9520, L506.1000, L100.0100, L100.9950, L503.6550 ####[facility] [address] [place], [place], [phone] Chloride [Moles/Vol] 102 mmol/L Normal 98-107 [facility] Comment on above: Order Comment: Order Date: 06/12/24Order Info: 0667-1 - BMPBMP GOES TO DR.WYNESKITHE FERNANDES GOES TO DR VAZQUEZ Performed By: #### L 500.4050, L503.6150, L300.3900, L501.2300, L500.4100, L503.0105, L509.1000, L501.5200, L501.9520, L506.1000, L100.0100, L100.9950, L503.6550 ####[facility] [address] [place], [place], [phone]) CO2 [Moles/Vol] 31.0 mmol/L Normal 21.0-32.0 [facility] Comment on above: Order Comment: Order Date: 06/12/24Order Info: 0667-1 - BMPBMP GOES TO DR.WYNESKITHE FERNANDES GOES TO DR VAZQUEZ Performed By: #### L 500.4050, L503.6150, L300.3900, L501.2300, L500.4100, L503.0105, L509.1000, L501.5200, L501.9520, L506.1000, L100.0100, L100.9950, L503.6550 ####[facility] [address] [place], [place], [phone] Creatinine [Mass/Vol] 0.82 mg/dL Normal 0.55-1.02 [facility] Comment on above: Order Comment: Order Date: 06/12/24Order Info: 0667-1 - BMPBMP GOES TO DR.WYNESKITHE FERNANDES GOES TO DR VAZQUEZ Result Comment: The validity of the calculated GFR GFRAA in patients over 70 years has not been determined. Clinical correlation is essential. Performed By: #### L 500.4050, L503.6150, L300.3900, L501.2300, L500.4100, L503.0105, L509.1000, L501.5200, L501.9520, L506.1000, L100.0100, L100.9950, L503.6550 ####[facility] [address] [place], [place], [phone] EST GFR - AA 86 mL/min Normal >60 [facility] Comment on above: Order Comment: Order Date: 06/12/24Order Info: 0667-1 - BMPBMP GOES TO DR.WYNESKITHE FERNANDES GOES TO DR VAZQUEZ Result Comment: Afri can [place] GFR Calc Performed By: #### L 500.4050, L503.6150, L300.3900, L501.2300, L500.4100, L503.0105, L509.1000, L501.5200, L501.9520, L506.1000, L100.0100, L100.9950, L503.6550 ####[facility] [address] [place], [place], [phone] GAP 4 Low 5-15 [facility] Comment on above: Order Comment: Order Date: 06/12/24Order Info: 0667-1 - BMPBMP GOES TO DR.WYNESKITHE FERNANDES GOES TO DR VAZQUEZ Performed By: #### L 500.4050, L503.6150, L300.3900, L501.2300, L500.4100, L503.0105, L509.1000, L501.5200, L501.9520, L506.1000, L100.0100, L100.9950, L503.6550 ####[facility] [address] [place], [place], [phone] GFR/1.73 sq M.predicted among non-blacks MDRD (S/P/Bld) [Vol rate/Area] 71 mL/min/{1.73_m2} Normal >60 [facility] Comment on above: Order Comment: Order Date: 06/12/24Order Info: 0667-1 - BMPBMP GOES TO DR.WYNESKITHE FERNANDES GOES TO DR VAZQUEZ Result Comment: Non- GFR Calc Performed By: #### L 500.4050, L503.6150, L300.3900, L501.2300, L500.4100, L503.0105, L509.1000, L501.5200, L501.9520, L506.1000, L100.0100, L100.9950, L503.6550 ####[facility] [address] [place], [place], [phone] Globulin (S) [Mass/Vol] 2.9 g/dL Normal 2.2-4.2 [facility] Comment on above: Order Comment: Order Date: 06/12/24Order Info: 0667-1 - BMPBMP GOES TO DR.WYNESKITHE FERNANDES GOES TO DR VAZQUEZ Performed By: #### L 500.4050, L503.6150, L300.3900, L501.2300, L500.4100, L503.0105, L509.1000, L501.5200, L501.9520, L506.1000, L100.0100, L100.9950, L503.6550 ####[facility] [address] [place], [address] Glucose [Mass/Vol] 98 mg/dL Normal 74-106 [facility] Comment on above: Order Comment: Order Date: 06/12/24Order Info: 0667-1 - BMPBMP GOES TO DR.WYNESKITHE FERNANDES GOES TO DR VAZQUEZ Performed By: #### L 500.4050, L503.6150, L300.3900, L501.2300, L500.4100, L503.0105, L509.1000, L501.5200, L501.9520, L506.1000, L100.0100, L100.9950, L503.6550 ####[facility] [address] [place], [place], [phone]) Potassium [Moles/Vol] 4.2 mmol/L Normal 3.5-5.1 [facility] Comment on above: Order Comment: Order Date: 06/12/24Order Info: 06- - BMPP GOES TO DR.WYNESKITHE FERNANDES GOES TO DR VAZQUEZ Performed By: #### L 500.4050, L503.6150, L300.3900, L501.2300, L500.4100, L503.0105, L509.1000, L501.5200, L501.9520, L506.1000, L100.0100, L100.9950, L503.6550 ####[facility] [address] [place], [place], [phone] Sodium [Moles/Vol] 138 mmol/L Normal 136-145 [facility] Comment on above: Order Comment: Order Date: 06/12/24Order Info: 666-08 - BMPBM GOES TO DR.WYNESKITHE FERNANDES GOES TO DR VAZQUEZ Performed By: #### L 500.4050, L503.6150, L300.3900, L501.2300, L500.4100, L503.0105, L509.1000, L501.5200, L501.9520, L506.1000, L100.0100, L100.9950, L503.6550 ####[facility] [address] [place], [place], [phone] T PROT 6.6 g/dL Normal 6.4-8.2 [facility] Comment on above: Order Comment: Order Date: 06/12/24Order Info: 0667 - BMPBMP GOES TO DR.WYNESKITHE FERNANDES GOES TO DR VAZQUEZ Performed By: #### L 500.4050, L503.6150, L300.3900, L501.2300, L500.4100, L503.0105, L509.1000, L501.5200, L501.9520, L506.1000, L100.0100, L100.9950, L503.6550 ####[facility] [address] [place], [place], [phone] Urea nitrogen [Mass/Vol] 15 mg/dL Normal 7-18 [facility] Comment on above: Order Comment: Order Date: 06/12/24Order Info: 666-08 - BMPBMP GOES TO DR.WYNESKITHE FERNANDES GOES TO DR VAZQUEZ Performed By: #### L 500.4050, L503.6150, L300.3900, L501.2300, L500.4100, L503.0105, L509.1000, L501.5200, L501.9520, L506.1000, L100.0100, L100.9950, L503.6550 ####[facility] [address] [place], [place], [phone] Ferritinon 06-12-2024 Ferritin [Mass/Vol] 23 ng/mL Normal 8-252 [facility] Comment on above: Order Comment: Order Date: 06/12/24Order Info: 666-08 - BMPBMP GOES TO DR.WYNESKITHE FERNANDES GOES TO DR VAZQUEZ Performed By: #### M 100.678 #### [facility] [address] [place], [place], [phone] Ironon 06-12-2024 Iron [Mass/Vol] 36 ug/dL Low 50-170 [facility] Comment on above: Order Comment: Order Date: 06/12/24Order Info: 666-08 - BMPBMP GOES TO DR.WYNESKITHE FERNANDES GOES TO DR VAZQUEZ Performed By: #### L 500.4050, L503.6150, L300.3900, L501.2300, L500.4100, L503.0105, L509.1000, L501.5200, L501.9520, L506.1000, L100.0100, L100.9950, L503.6550 ####[facility] [address] [place], [address] L501.2276on 06-12-2024 Ionized Calcium 4.87 mg/dL Normal 4.36-5.20 [facility] Comment on above: Performed By: #### L 501.2276 #### [facility] [address] [place], [address] Lipid Profileon 06-12-2024 Cholesterol [Mass/Vol] 143 mg/dL Normal 200 [facility] Comment on above: Order Comment: Order Date: 06/12/24Order Info: 0667-1 - BMPBMP GOES TO DR.WYNESKITHE FERNANDES GOES TO DR VAZQUEZ Result Comment: <200 mg/dL Desirable 200-240 mg/dL Borderline >240 mg/dL High Risk Performed By: #### L 500.4050, L503.6150, L300.3900, L501.2300, L500.4100, L503.0105, L509.1000, L501.5200, L501.9520, L506.1000, L100.0100, L100.9950, L503.6550 ####[facility] [address] [place], [address] Cholesterol in HDL [Mass/Vol] 68 mg/dL Normal [facility] Comment on above: Order Comment: Order Date: 06/12/24Order Info: 0667-1 - BMPBMP GOES TO DR.WYNESKITHE FERNANDES GOES TO DR VAZQUEZ Result Comment: The drugs N-Acetylcysteine and Metamizole may falsely depress this assay. Reference Range HDL <40 mg/dL Low HDL Cholesterol HDL >or= 60 mg/dL High HDL Cholesterol Performed By: #### L 500.4050, L503.6150, L300.3900, L501.2300, L500.4100, L503.0105, L509.1000, L501.5200, L501.9520, L506.1000, L100.0100, L100.9950, L503.6550 ####[facility] [address] [place], [address] Cholesterol in LDL [Mass/Vol] 43 mg/dL Normal 0-130 [facility] Comment on above: Order Comment: Order Date: 06/12/24Order Info: 0667-1 - BMPBMP GOES TO DR.WYNESKITHE FERNANDES GOES TO DR VAZQUEZ Performed By: #### L 500.4050, L503.6150, L300.3900, L501.2300, L500.4100, L503.0105, L509.1000, L501.5200, L501.9520, L506.1000, L100.0100, L100.9950, L503.6550 ####[facility] [address] [place], [address] Cholesterol in VLDL [Mass/Vol] 32 mg/dL Normal 5-40 [facility] Comment on above: Order Comment: Order Date: 06/12/24Order Info: 0667- - BMPBMP GOES TO DR.WYNESKITHE FERNANDES GOES TO DR VAZQUEZ Performed By: #### L 500.4050, L503.6150, L300.3900, L501.2300, L500.4100, L503.0105, L509.1000, L501.5200, L501.9520, L506.1000, L100.0100, L100.9950, L503.6550 ####[facility] [address] [place], [address] Triglyceride [Mass/Vol] 161 mg/dL Normal [facility] Comment on above: Order Comment: Order Date: 06/12/24Order Info: 0667-1 - BMPBMP GOES TO DR.WYNESKITHE FERNANDES GOES TO DR VAZQUEZ Result Comment: The drugs N-Acetylcysteine and Metamizole may falsely depress this assay. Serum Triglycerides Reference Interval Normal <150 mg/dL Borderline high 150 - 199 mg/dL High 200 - 499 mg/dL Very High > or = 500 mg/dL Performed By: #### L 500.4050, L503.6150, L300.3900, L501.2300, L500.4100, L503.0105, L509.1000, L501.5200, L501.9520, L506.1000, L100.0100, L100.9950, L503.6550 ####[facility] [address] [place], [place], [phone] Magnesiumon 06-12-2024 Magnesium [Mass/Vol] 2.0 mg/dL Normal 1.6-2.6 [facility] Comment on above: Order Comment: Order Date: 06/12/24Order Info: 0667-1 - BMPBMP GOES TO REST GOES TO DR VAZQUEZ Performed By: #### L 500.4050, L503.6150, L300.3900, L501.2300, L500.4100, L503.0105, L509.1000, L501.5200, L501.9520, L506.1000, L100.0100, L100.9950, L503.6550 ####[facility] [address] [place], [place], [phone] PTHINon 06-12-2024 PTH 23.0 pg/mL Normal 18.4-80.1 [facility] Comment on above: Performed By: #### L 500.4050, L503.6150, L300.3900, L501.2300, L500.4100, L503.0105, L509.1000, L501.5200, L501.9520, L506.1000, L100.0100, L100.9950, L503.6550 ####[facility] [address] [place], [place], [address] Phosphoruson 06-12-2024 Phosphate [Mass/Vol] 4.9 mg/dL Normal 2.5-4.9 [facility] Comment on above: Order Comment: Order Date: 06/12/24Order Info: 0667-1 - BMPBMP GOES TO DR.WYNESKITHE FERNANDES GOES TO DR VAZQUEZ Performed By: #### L 500.4050, L503.6150, L300.3900, L501.2300, L500.4100, L503.0105, L509.1000, L501.5200, L501.9520, L506.1000, L100.0100, L100.9950, L503.6550 ####[facility] [address] [place], [place], [phone] Prothrombin Time w/INRon INR Coag (PPP) [Relative time] 1.6 {INR} Normal [facility] Comment on above: Order Comment: BMP G OES TO DR.WYNESKITHE FERNANDES GOES TO DR VAZQUEZ Performed By: #### M 100.288 #### [facility] [address] [place], [place], [phone] PT Coag (PPP) [Time] 18.5 s High 11.7-14.9 [facility] Comment on above: Order Comment: BMP G OES TO DR.WYNESKITHE FERNANDES GOES TO DR VAZQUEZ Performed By: #### M 100.878 #### [facility] [address] [place], [place], [phone] Retic Panelon 06-12-2024 IM RET FRACTION 7.00 Normal 3.00-15.90 [facility] Comment on above: Order Comment: BMP G OES TO DR.WYNESKITHE FERNANDES GOES TO DR VAZQUEZ Performed By: #### L 500.4050, L503.6150, L300.3900, L501.2300, L500.4100, L503.0105, L509.1000, L501.5200, L501.9520, L506.1000, L100.0100, L100.9950, L503.6550 ####[facility] [address] [place], [place], [phone] RET-HE 32.8 pg Normal 30-35 [facility] Comment on above: Order Comment: BMP G OES TO DR.WYNESKITHE FERNANDES GOES TO DR VAZQUEZ Performed By: #### L 500.4050, L503.6150, L300.3900, L501.2300, L500.4100, L503.0105, L509.1000, L501.5200, L501.9520, L506.1000, L100.0100, L100.9950, L503.6550 ####[facility] [address] [place], [place], [phone] Retic Count 1.58 High 0.5-1.5 [facility] Comment on above: Order Comment: BMP G OES TO DR.WYNESKITHE FERNANDES GOES TO DR VAZQUEZ Performed By: #### L 500.4050, L503.6150, L300.3900, L501.2300, L500.4100, L503.0105, L509.1000, L501.5200, L501.9520, L506.1000, L100.0100, L100.9950, L503.6550 ####[facility] [address] [facility] [address] [place], [place], [phone] Thyroid Stim Hormone (TSH)on 06-12-2024 TSH 1.440 uIU/mL Normal 0.358-3.74 0 [facility] Comment on above: Order Comment: Order Date: 06/12/24Order Info: 0667-1 - BMPBMP GOES TO DR.WYNESKITHE FERANNDES GOES TO DR VAZQUEZ Performed By: #### L 500.4050, L503.6150, L300.3900, L501.2300, L500.4100, L503.0105, L509.1000, L501.5200, L501.9520, L506.1000, L100.0100, L100.9950, L503.6550 ####[facility] [address] [place], [place], [phone] Vitamin B12on 06-12-2024 Cobalamin (Vitamin B12) [Mass/Vol] 1840 pg/mL High 211-911 [facility] Comment on above: Order Comment: BMP G OES TO REST GOES TO DR VAZQUEZ Performed By: #### M 100.678 #### [facility] [address] [place], [place], [id number] Vitamin D,25 Hydroxyon 06-12 Vitamin D 25-OH 71.2 ng/mL Normal [facility] Comment on above: Order Comment: BMP G OES TO REST GOES TO DR VAZQUEZ Result Comment: Elaine min D 25(OH) Status Range Deficiency <20 ng/mL (50nmol/L) Insufficiency 20 - 30 ng/mL (50 - 75 nmol/L) Sufficiency 30 - 100 ng/mL (75 - 250 nmol/L) Toxicity >100 ng/mL (>250 nmol/L) Performed By: #### M [id number] #### [facility] [address], [place], [id number] PT/INR DAILY PATIENT ON COUM ADINon 06-10-2024 INR Coag (PPP) [Relative time] 1.6 {INR} High 0.8 - 1.2 [facility] Comment on above: Result Comment: T HE HEMOSIL THROMBOPLASTIN REAGENT USED IN THE PROTHROMBIN TIME TEST INTERACTS WITH THE DRUG CUBICIN (DAPTOMYCIN) AND WILL RESULT IN FALSELY ELEVATED PT / INR RESULTS. INR INTERPRETATION INR INDICATION PREVENTION AND TREATMENT OF THROMBOEMBOLISM ASSOCIATED WITH: 2.0 - 3.0 ATRIAL FIBRILLATION, BIOPROSTHETIC HEART VALVES, PULMONARY EMBOLISM, VENOUS THROMBOSIS, SYSTEMIC EMBOLISM POST MYOCARDIAL INFARCTION 2.5 - 3.5 MECHANICAL HEART VALVES Performed By: #### 2 [id number] #### [facility],[address] [place] [id number] PT-COUMADIN 18.2 sec High 9.3 - 14.1 [facility] Comment on above: Performed By: #### 2 [id number] #### [facility],[address] [place] [address] 60359 BMP with eGFRon 06-09-2024 AGE 78 years Normal [facility] Comment on above: Performed By: #### 2 [id number] #### [facility],[address] [place] [address] 12446 Anion gap [Moles/Vol] 12 mmol/L Normal 10 - 20 [facility] Comment on above: Performed By: #### 2 71606 #### [facility],[address] [place] [address] 40634 BMP with eGFR Normal [facility] Comment on above: Result Comment: BASI C METABOLIC PANEL Performed By: #### 2 40107 #### [facility],[address] [place] [address] 90624 Calcium [Mass/Vol] 8.8 mg/dL Normal 8.5 - 10.1 [facility] Comment on above: Performed By: #### 2 [id number] #### [facility],[address] [place] [address] 54667 Chloride [Moles/Vol] 107 mmol/L Normal 98 - 107 [facility] Comment on above: Performed By: #### 2 [id number] #### [facility],[address] [place] [address] 61581 CO2 [Moles/Vol] 27.8 mmol/L Normal 21.0 - 32.0 [facility] Comment on above: Performed By: #### 2 87632 #### [facility],[address] [place] [address] 34563 Creatinine [Mass/Vol] 0.72 mg/dL Normal 0.55 - 1.02 [facility] Comment on above: Performed By: #### 2 [id number] #### [facility],[address] [place] [address] 21485 GFR/1.73 sq M.predicted among non-blacks MDRD (S/P/Bld) [Vol rate/Area] mL/min/{1.73_m2} Normal 60 - 999 [facility] Comment on above: Performed By: #### 2 [id number] #### [facility],[address] [place] [address] 0001[address] Result Comment: ACCO RDING TO THE NATIONAL KIDNEY DISEASE EDUCATION PROGRAM(NKDE), A NORMAL eGFR IS A VALUE GREATER THAN OR EQUAL TO 60 ML/MIN/1.73 SQ METERS. CHRONIC KIDNEY DISEASE: <60mL/MIN/1.73 SQ METERS KIDNEY FAILURE: <15mL/MIN/1.73 SQ METERS THIS TEST SHOULD ONLY BE USED FOR PATIENTS 18 YEARS OF AGE AND OLDER. Glucose [Mass/Vol] 92 mg/dL Normal 74 - 106 [facility] Comment on above: Performed By: #### 2 07055 #### [place] [id number] Potassium [Moles/Vol] 4.5 mmol/L Normal 3.5 - 5.1 [facility] Comment on above: Performed By: #### 2 18928 #### [place] [id number] Sodium [Moles/Vol] 142 mmol/L Normal 136 - 145 [facility] Comment on above: Performed By: #### 2 43708 #### [facility],[address] [place], [place] [id number] Urea nitrogen [Mass/Vol] 8 mg/dL Normal 7 - 18 [facility] Comment on above: Performed By: #### 2 51361 #### [place] [id number] MR CERVICAL SP WO CONTRASTon 06-09-2024 MR CERVICAL SP WO CONTRAST [place] [address] Patient: SINDY SWEENEY Phone#: : 1945 Age: 78 Gender: F Pt. Type: Out Account: [id number] Location: [facility] Ordering: DR. MUSTAPHA COLLINS Exam Date: 06/09/2024/11:56 Family Phys: CHRISTOPHER M. RANNEY Charge Code: 162427 Physician: [place] Order #: [id number] Dose#: PROCEDURE: MRI CERVICAL SPINE WITHOUT CONTRAST COMPARISON: None. INDICATIONS: Neck pain TECHNIQUE: A variety of imaging planes and parameters were utilized for visualization of suspected pathology. FINDINGS: CRANIOCERVICAL AREA: Normal foramen magnum with no Chiari malformation. PARASPINAL AREA: Normal with no visible mass. BONES: Reversal of the normal cervical lordosis. There is grade 1 anterolisthesis of C2 on C3 and C3 on C4. Grade 1 retrolisthesis of C4 on C5 and C5 on C6. CORD: Normal signal intensity. Spinal canal narrowing results in flattening of the cord. CERVICAL DISC LEVELS: C2-C3: Left facet arthropathy contributes to mild left foraminal narrowing. C3-C4: Grade 1 anterolisthesis, disc height loss, uncovertebral hypertrophy and facet arthropathy contributes to moderate-severe right and mild left neural foraminal narrowing. There is mild spinal canal narrowing. C4-C5: Disc height loss, grade 1 retrolisthesis, and uncovertebral hypertrophy contributes to severe right and moderate left foraminal narrowing. There is severe spinal canal narrowing. C5-C6: Disc height loss, posterior disc bulge, grade 1 retrolisthesis and uncovertebral hypertrophy contributes to moderate bilateral osseous foraminal narrowing. There is severe spinal canal narrowing. C6-C7: Disc height loss posterior disc bulge and uncovertebral hypertrophy contributes to moderate bilateral neural foraminal narrowing. Mild spinal canal narrowing. C7-T1: No significant disc/facet abnormality, spinal stenosis, or foraminal stenosis. CONCLUSION: 1. Multilevel degenerative changes with varying degrees of osseous foraminal narrowing and spinal canal narrowing. Findings most significant at C3-4, C4-5, and C5-6. Dictated by: Arlet Pérez MD on 06/09/2024 at 13:00 Continued Report - Page 2 of 2 Patient: SINDY SWEENEY Phone#: : 1945 Age: 78 Gender: F Pt. Type: Out Account: [id number] Location: [facility] Ordering: DR. MUSTAPHA COLLINS Exam Date: 06/09/2024/11:56 Family Phys: LITZY VAZQUEZ Charge Code: 526936 Physician: [place] Order #: [id number] Dose#: Approved by: Arlet Pérez MD on 06/09/2024 at 13:17 Normal [facility] PT/INR DAILY PATIENT ON COUM ADINon 06-09-2024 INR Coag (PPP) [Relative time] 2.3 {INR} High 0.8 - 1.2 [facility] Comment on above: Result Comment: T HE HEMOSIL THROMBOPLASTIN REAGENT USED IN THE PROTHROMBIN TIME TEST INTERACTS WITH THE DRUG CUBICIN (DAPTOMYCIN) AND WILL RESULT IN FALSELY ELEVATED PT / INR RESULTS. INR INTERPRETATION INR INDICATION PREVENTION AND TREATMENT OF THROMBOEMBOLISM ASSOCIATED WITH: 2.0 - 3.0 ATRIAL FIBRILLATION, BIOPROSTHETIC HEART VALVES, PULMONARY EMBOLISM, VENOUS THROMBOSIS, SYSTEMIC EMBOLISM POST MYOCARDIAL INFARCTION 2.5 - 3.5 MECHANICAL HEART VALVES Performed By: #### 2 54266 #### [place] [address] PT-COUMADIN 25.1 sec High 9.3 - 14.1 [facility] Comment on above: Performed By: #### 2 17094 #### [facility],[address] [place] [address] 10373 BMP with eGFRon 06-08-2024 AGE 78 years Normal [facility] Comment on above: Performed By: #### 2 51260 #### [facility],[address] [place] [address] 30841 Anion gap [Moles/Vol] 11 mmol/L Normal [facility] Comment on above: Performed By: #### 2 53714 #### [facility],[address] [place] [address] 52510 BMP with eGFR Normal [facility] Comment on above: Result Comment: BASI C METABOLIC PANEL Performed By: #### 2 38834 #### [facility],[address] [place] [address] 10027 Calcium [Mass/Vol] 8.2 mg/dL Low 8.5 - 10.1 [facility] Comment on above: Performed By: #### 2 79481 #### [facility],[address] [place] [address] 17598 Chloride [Moles/Vol] 95 mmol/L Low 98 - 107 [facility] Comment on above: Performed By: #### 2 89138 #### [facility],[address] [place] [address] 90248 CO2 [Moles/Vol] 24.3 mmol/L Normal 21.0 - 32.0 [facility] Comment on above: Performed By: #### 2 04506 #### [facility],[address] [place] [address] 35635 Creatinine [Mass/Vol] 0.71 mg/dL Normal 0.55 - 1.02 [facility] Comment on above: Performed By: #### 2 03627 #### [facility],[address] [place] [address] 97236 GFR/1.73 sq M.predicted among non-blacks MDRD (S/P/Bld) [Vol rate/Area] mL/min/{1.73_m2} Normal 60 - 999 [facility] Comment on above: Performed By: #### 2 56657 #### [facility],[address] [place] [address] 75348 Result Comment: ACCO RDING TO THE NATIONAL KIDNEY DISEASE EDUCATION PROGRAM(NKDE), A NORMAL eGFR IS A VALUE GREATER THAN OR EQUAL TO 60 ML/MIN/1.73 SQ METERS. CHRONIC KIDNEY DISEASE: <60mL/MIN/1.73 SQ METERS KIDNEY FAILURE: <15mL/MIN/1.73 SQ METERS THIS TEST SHOULD ONLY BE USED FOR PATIENTS 18 YEARS OF AGE AND OLDER. Glucose [Mass/Vol] 93 mg/dL Normal 74 - 106 [facility] Comment on above: Performed By: #### 2 46667 #### [facility],[address] [place] [address] 65303 Potassium [Moles/Vol] 4.0 mmol/L Normal 3.5 - 5.1 [facility] Comment on above: Performed By: #### 2 23919 #### [facility],[address] [place] [address] Sodium [Moles/Vol] 126 mmol/L Low 136 - 145 [facility] Comment on above: Performed By: #### 2 34055 #### [facility],[address] [place] [address] Urea nitrogen [Mass/Vol] 6 mg/dL Low 7 - 18 [facility] Comment on above: Performed By: #### 2 26872 #### [facility],[address] [place] [address] CBC + DIFFon 06-08-2024 Baso # 0.02 x10EE3/UL Normal 0.00 - 0.10 [facility] Comment on above: Performed By: #### 2 32914 #### [facility],[address] [place], [place] [id number] Basophils/100 WBC (Bld) 0.4 % Normal 0.0 - 2.0 [facility] Comment on above: Performed By: #### 2 59402 #### [facility],[address] [place] [address] CBC + DIFF Normal [facility] Comment on above: Result Comment: CBC- COMPLETE BLOOD COUNT Performed By: #### 2 27914 #### [facility],[address] [place] [address] EO # 0.16 x10EE3/UL Normal 0.00 - 0.50 [facility] Comment on above: Performed By: #### 2 64408 #### [address] [address] Eosinophils/100 WBC (Bld) 3.0 % Normal 0.0 - 7.0 [facility] Comment on above: Performed By: #### 2 70393 #### [facility],[address],[place] [address] Erythrocyte distribution width (RBC) [Ratio] 12.9 % Normal 12.0 - 15.6 [facility] Comment on above: Performed By: #### 2 54243 #### [facility],[address] [place] [address] Hematocrit (Bld) [Volume fraction] 38.3 % Normal 34.0 - 46.0 [facility] Comment on above: Performed By: #### 2 12482 #### [facility],[address] [place] [address] Hemoglobin (Bld) [Mass/Vol] 12.7 g/dL Normal 12.0 - 16.0 [facility] Comment on above: Performed By: #### 2 71201 #### [facility],[address] [place] [address] Lymph # 0.79 x10EE3/UL Low 0.80 - 2.80 [facility] Comment on above: Performed By: #### 2 85257 #### [facility],[address] [place], [place] [id number] Lymphocytes/100 WBC (Bld) 14.4 % Low 20.0 - 45.0 [facility] Comment on above: Performed By: #### 2 21154 #### [facility],[address] [place] [address] MANUAL DIFF N/A Normal [facility] Comment on above: Performed By: #### 2 80774 #### [facility],[address] [place], [place] [id number] MCH (RBC) [Entitic mass] 31 pg Normal 27 - 33 [facility] Comment on above: Performed By: #### 2 29437 #### [facility],[address] [place], [place] [id number] MCHC 33 X10 3 Normal 32 - 36 [facility] Comment on above: Performed By: #### 2 21367 #### [facility],[address] [place], [place] [id number] MCV (RBC) [Entitic vol] 95 fL Normal 80 - 99 [facility] Comment on above: Performed By: #### 2 47464 #### [facility],[address] [place] [address] [place] # 0.46 x10EE3/UL Normal 0.20 - 1.00 [facility] Comment on above: Performed By: #### 2 73479 #### [facility],[address] [place] [address] MONOS % 8.4 % Normal 0.0 - 10.0 [facility] Comment on above: Performed By: #### 2 22355 #### [place] [address] Morphology Kevin (Bld) [Interp] N/A Normal [facility] Comment on above: Performed By: #### 2 50527 #### [place] [address] Neut # 4.05 x10EE3/UL Normal 1.50 - 7.10 [facility] Comment on above: Performed By: #### 2 51148 #### [place] [address] Neutrophils/100 WBC (Bld) 73.8 % Normal 46.0 - 76.0 [facility] Comment on above: Performed By: #### 2 43475 #### [place] [address] PLATELET 197 x10EE3/UL Normal 150 - 450 [facility] Comment on above: Performed By: #### 2 85148 #### [place] [address] Platelet mean volume (Bld) [Entitic vol] 6.8 fL Normal 6.6 - 10.5 [facility] Comment on above: Result Comment: AUTO MATED DIFFERENTIAL Performed By: #### 2 16606 #### [address],[place] [address] RBC 4.03 x 10EE6/UL Low 4.10 - 5.30 [facility] Comment on above: Performed By: #### 2 17129 #### [facility],[address] [place] [address] 19221 WBC 5.5 x 10EE3/UL Normal 4.5 - 10.8 [facility] Comment on above: Performed By: #### 2 04237 #### [facility],[address] [place] [address] 135[address] ED FACILITY CODING SUMMARYon 06-08-2024 ED FACILITY CODING SUMMARY Facility Coding Facility Coding Summary [address] [address] [id number] 06/07/2024 Patient: SINDY SWEENEY Sex: Female : 1945 Age: 78y Providers: Gibson Thrasher D.O. DIAGNOSTIC WORKUP Chief Complaint COUGH, SORE THROAT, FEVER, CHILLS and MUSCLE ACHES. -- Gibson Thrasher D.O. Principal Diagnosis Severe hyponatremia -- Gibson Thrasher D.O. ICD-10 Codes E87.1: Hypo-osmolality and hyponatremia PROCEDURES Procedures from Providers: EKG (CPT: 44101) -- Gibson Thrasher D.O. Procedures from Nurses/Facility: IV Hydration (CPT: 00636 X3) IV Push Fentanyl IVP (CPT: 15190) IV Push KetorOLAC (Toradol) IVP (CPT: 35587) IV Push Zofran IVP (CPT: 93016) SUPPLIES 1 of 2 Facility Coding ELEVEL 53800-97 This is a partial abstract of information documented in the full record. Web Retailer must use independent judgment in selecting codes. CPT copyright 2022 [employer]. All Rights Reserved. 2 of 2 Normal [facility] ED MED ADMINISTRATION DETAIL on 06-08-2024 ED MED ADMINISTRATION DETAIL Insurance Claim Approver Medication Administration Record [address] [address] [id number] 06/07/2024 Patient: SINDY SWEENEY Sex: Female : 1945 Age: 78y MEASUREMENTS: Wt: 93.0 kg, Ht/Pasha: 65.0 in, BMI: 34.11 ALLERGIES: latex Medication Ordered Medication Administration Date/Time IV NS 0.9 % 1000 17:04 06/07 IV NS 0.9 % 1000 mL started in bag#1 1000 mL at Started mL at 500 mL/hr 500 mL/hr via Site# 1. - 17:05 Maykel Harkins R.N. 17:04 06/07/2024 (NOW x1) Maykel Harkins R.N. 19:04 06/07 Medication Discontinued: bag #1 completed. Total Stopped amount infused: 1000 mL. IV patency established. IV site checked: 19:04 06/07/2024 no pain, redness, or swelling. IV flushed thoroughly post-medication Maykel Harkins R.N. administration. - 20:07 Maykel Harkins R.N. Scanned Zofran IVP 4 mg 17:05 06/07 Zofran IVP 4 mg given via Site# 1. - 17:06 Maykel Given (NOW x1) Teresa Harkins 17:05 06/07/2024 Maykel Harkins R.N. Scanned KetorOLAC 17:42 06/07 KetorOLAC (Toradol) IVP 15 mg given via Site# 1. Given (Toradol) IVP 15 mg Allergies verified and confirmed 5 rights. IV patency established. IV 17:42 06/07/2024 (NOW x1) site checked: no pain, redness, or swelling. IV flushed thoroughly Loyd Contreras pre-medication administration. IVP given by EMT-P. Information E.MJaniT.-P. reviewed with patient. Vitals: 17:35 06/07/2024 BP: 171/85 MAP: Scanned 111 mmHg. HR: 69 bpm. Medication Wastage: 15 mg wasted. - 17:43 Ronak GordonMJaniT.-PJani 1 of 2 Insurance Claim Approver Medication Ordered Medication Administration Date/Time IV NS 0.9 % 1000 18:21 06/07 IV NS 0.9 % 1000 mL started in bag#1 1000 mL at Started mL at 100 mL/hr 100 mL/hr via Site# 1. - 18:27 Maykel Harkins R.N. 18:21 06/07/2024 (NOW x1) Maykel Harkins R.N. 19:53 06/07 Medication Continued: at the rate of 100 mL/hr. 600 Scanned mL remaining in bag #2. IV patency established. IV site checked: no pain, redness, or swelling. - 20:08 Maykel Harkins R.N. Fentanyl IVP 50 18:48 06/07 Fentanyl IVP 50 mcg given via Site# 1. Medication Given mcg (NOW x1) Wastage: 50 mcg wasted. - 18:49 Maykel Harkins R.N. 18:48 06/07/2024 Maykel Harkins R.N. Scanned 2 of 2 Normal [facility] ED NURSES CLINICAL NOTEon ED NURSES CLINICAL NOTE Nurse Narrative Nurse Clinical Narrative [address] [place] [address] [id number] 06/07/2024 Patient: SINDY SWEENEY Sex: Female : 1945 Age: 78y [facility] Disposition Decision Time: 19:07 06/07/2024 Departure Time: 20:05 06/07/2024 TRIAGE Arrived by private vehicle. Historian: patient and family. Accompanied by family. Triage time: 16:19 06/07/2024. Acuity: LEVEL 3. Chief Complaint: COUGH, SORE THROAT and BODY ACHES, SINUS DRAINAGE and FATIGUE and known COVID-19 EXPOSURE. Alert. No acute distress. Onset. (1 weeks). ( Neck pain, anxiety, nasuea). The patient has had fatigue. No chills, loss of taste or smell, sinus pain or headache. No chest congestion, skin rash, vomiting or diarrhea. No known contact with a sick individual. No recent travel. SEPSIS SCREEN: NEGATIVE. SIRS criteria negative. SEVERE SEPSIS SCREEN NEGATIVE. No signs of organ dysfunction present. -- 16:24 06/07/24 EDT Kaitlyn Sewell R.N. 16:23 06/07/24. BP: 185/90 MAP: 122. HR: 87. RR: 16. O2 saturation: 93% Temperature: 98.3 F. Pain level now 0/10. -- 16:23 06/07/24 EDT Kaitlyn Sewell R.N. Measurements: 16:24 06/07/24 Wt: 93.0 kg, Ht/Pasha: 65.0 in, BMI: 34.11 -- 16:24 06/07/24 EDT Kaitlyn Sewell R.N. 1 of 4 Nurse Narrative Medications: warfarin oral -- 16:23 06/07/24 EDT Kaitlyn Sewell R.N. fluticasone 250 mcg-salmeterol 50 mcg/dose blistr powdr for inhalation -- 17:16 06/07/24 EDT Kiatlyn Sewell R.N. desmopressin 0.2 mg tablet -- 17:16 06/07/24 EDT Kaitlyn Sewell R.N. albuterol sulfate HFA 90 mcg/actuation aerosol inhaler -- 17:16 06/07/24 EDT Kaitlyn Sewell R.N. warfarin 2.5 mg tablet -- 17:16 06/07/24 EDT Kaitlyn Sewell R.N. buspirone 10 mg tablet -- 17:16 06/07/24 EDT Kaitlyn Sewell R.N. mirabegron ER 50 mg tablet,extended release 24 hr -- 17:16 06/07/24 EDT Kaitlyn Sewell R.N. fesoterodine ER 8 mg tablet,extended release 24 hr -- 17:16 06/07/24 EDT Kaitlyn Sewell R.N. Allergies: latex -- 16:21 06/07/24 EDT Kaitlyn Sewell R.N. Problems: thick blood -- 16:29 06/07/24 EDT Kaitlyn Sewell R.N. Bladder muscle dysfunction - overactive -- 17:18 06/07/24 EDT Kaitlyn Sewell R.N. ADDITIONAL SURGERIES: Cholecystectomy -- 16:24 06/07/24 EDT Kaitlyn Sewell R.N. History 16:19 06/07/24. SOCIAL HX: Never smoker. No alcohol use or drug use. No recent travel. No known contact with a sick individual. The patient has not traveled outside the [place] Infectious disease exposure: No infectious disease exposure. ABUSE ASSESSMENT: The patient answered no to the question(s) Do you feel safe in your home? and Are you afraid to go home?. SELF HARM ASSESSMENT: Self harm assessment was performed. The patient answered no to the question(s) Have you recently felt down, depressed, or hopeless? and Do you have thoughts of harming or killing yourself?. 2 of 4 Nurse Narrative FALL RISK ASSESSMENT: Fall risk assessment completed. Risk factors identified include weakness and patient age greater than 65 years. Fall interventions initiated. Patient placed on stretcher. Side rails up x2. Bed in low position. Brakes on. -- 16:24 06/07/24 EDT Kaitlyn Sewell R.N. Interventions 16:19 06/07/24. Identification band on patient. To treatment room. Advanced care plan discussed with patient. It is unknown if patient has advanced directive. -- 16:24 06/07/24 ESTELLAT Kaitlyn Sewell R.N. PHYSICAL ASSESSMENT 16:45 06/07/24. ( Patient complains of a one week hx of general illness symptoms including dry cough, sore throat, body aches, and sinus drainage. She also complains of some weakness and fatigue over the same timeline.). GENERAL / NEURO / PSYCH: Alert. Oriented X 4. Appears in no acute distress. HEENT: Pupils equal, round and reactive to light. Mucous membranes are pink. RESPIRATORY: Respirations not labored. Chest nontender. Breath sounds within normal limits. CVS: Normal sinus rhythm noted. Capillary refill less than 2 seconds. Pulses within normal limits. GI / : Abdomen soft and nontender and normal bowel sounds. SKIN: Skin intact. Skin is warm and dry. Normal skin turgor. -- 16:45 06/07/24 EDT Maykel Harkins R.N. NURSING PROGRESS NOTES 16:49 06/07/24. ( EKG performed by phlebot and shown to physician.). -- 16:49 06/07/24 ALEYDA Harkins R.N. 17:00 06/07/24. ( Patient swabbed for flu and covid and sent to lab.). -- 17:11 06/07/24 ALEYDA Harkins R.N. 17:04 06/07/24. IV NS 0.9 % 1000 mL started in bag#1 1000 mL at 500 mL/hr via Site# 1. -- 17:05 06/07/24 EDT Maykel Harkins R.N. 17:05 06/07/24. Site #1 started via IV in the left antecubital space with a 20g angiocath with aseptic technique and good blood return; 1 attempt. Saline lock flushed with 5 mL saline. -- 17:05 06/07/24 EDT Maykel Harkins R.N. 17:05 06/07/24. Zofran IVP 4 mg gi (more content not included)... Normal [facility] ED ORDER SHEET (CPOE ONLY)on 06-08-2024 ED ORDER SHEET (CPOE ONLY) Order Sheet Order Sheet [address] [place] [address] [id number] 06/07/2024 Patient: SINDY SWEENEY Sex: Female : 1945 Age: 78y MEASUREMENTS: Wt: 93.0 kg, Ht/Pasha: 65.0 in, BMI: 34.11 ALLERGIES: latex MEDICATION/IV/DRIP/FLUID ORDERS Order Description Priority Entered Acknowledged Completed IV NS 0.9 %1000 mL at 500 16:31 06/07/2024 17:02 17:05 mL/hr (NOW x1) Gibson Thrasher, 06/07/2024 06/07/2024 RexOMaykel Cohn R.N. RJaniN. Zofran IVP4 mg (NOW x1) 16:31 06/07/2024 17:02 17:06 Gibson Thrasher, 06/07/2024 06/07/2024 RexOMaykel Cohn R.N. RJaniN. KetorOLAC (Toradol) IVP15 mg 17:39 06/07/2024 17:39 17:43 (NOW x1) Gibson Thrasher, 06/07/2024 06/07/2024 Loyd Barton, Ana Cristina.M.T.-P. E.M.T.-P. Reason for ordering with alerts: Benefits outweigh risks --17:39 06/07/2024 Gibson Thrasher D.O. IV NS 0.9 %1000 mL at 100 17:56 06/07/2024 17:58 18:27 mL/hr (NOW x1) Gibson Thrasher, 06/07/2024 06/07/2024 Maykel Marcano, 1 of 4 Order Sheet R.NJani R.NJani Reason for ordering with alerts: Benefits outweigh risks --17:56 06/07/2024 Gibson Thrasher D.O. Fentanyl IVP50 mcg (NOW x1) 18:37 06/07/2024 18:49 Gibson Thrasher 06/07/2024 Alysa Harkins R.N. Reason for ordering with alerts: Benefits outweigh risks --18:37 06/07/2024 Gibson Thrasher D.O. LAB ORDERS Order Description Priority Entered Acknowledged Collected Completed CBC w Diff Stat Stat 16:31 06/07/2024 16:50 06/07/2024 Maykel Carlton D.O. R.Leonor Lactate, Serum Stat Stat 16:31 06/07/2024 16:50 06/07/2024 Maykel Carlton D.O. R.NJani D-Dimer Stat Stat 16:31 06/07/2024 16:50 06/07/2024 Maykel Carlton D.O. R.NJani CMP Stat Stat 16:31 06/07/2024 16:50 06/07/2024 Maykel Carlton D.O. R.N. Troponin-I (Sched: q3h Stat 16:31 06/07/2024 16:50 06/07/2024 X2); Stat 1 of 2 Maykel Carlton D.O. R.NJani 2 of 4 Order Sheet Troponin-I (Sched: q3h Stat 16:31 06/07/2024 X2); Stat 2 of 2 Gibson Thrasher D.O. EKG - ED Stat Stat 16:31 06/07/2024 16:50 06/07/2024 Maykel Carlton D.O. RDelmer Urinalysis Stat Stat 16:31 06/07/2024 16:50 06/07/2024 Maykel Carlton D.O. R.N. Rapid COVID (SARS) Stat 16:31 06/07/2024 16:50 06/07/2024 ANTIGEN TEST Stat Maykel Carlton D.O. R.N. Flu Swab (Influenzae Stat 16:31 06/07/2024 16:50 06/07/2024 AAg) Stat Maykel Carlton D.O. R.N. Magnesium Stat Stat 18:55 06/07/2024 Gibson Thrasher D.O. DIAGNOSTIC STUDY ORDERS Order Description Priority Entered Acknowledged Completed STAFF ORDERS Order Description Priority Entered Acknowledged Collected Completed IV Saline Lock 16:31 06/07/2024 16:50 06/07/2024 Maykel Carlton D.O. R.N. 3 of 4 Order Sheet [Electronically signed by Gibson Thrasher D.O. (06/08/2024 00:44 EDT)] 4 of 4 Normal [facility] ED PHYS CODING ABST SUMMARYo n 06-08-2024 ED PHYS CODING ABST SUMMARY Coding Summary Coding Summary [address] [address] [id number] 06/07/2024 Patient: SINDY SWEENEY Sex: Female : 1945 Age: 78y ICD-10 Codes E87.1: Hypo-osmolality and hyponatremia CPT Codes EKG (CPT: 74575) This is a partial abstract of information documented in the full record. Web Retailer must use independent judgment in selecting codes. CPT copyright 2022 [employer]. All Rights Reserved. 1 of 1 Normal [facility] ED PHYSICIAN CLINICAL REPORT on 06-08-2024 ED PHYSICIAN CLINICAL REPORT Narrative Physician Clinical Narrative [address] [address] [id number] 06/07/2024 Patient: SINDY SWEENEY Sex: Female : 1945 Age: 78y [facility] Disposition Decision Time: 19:07 06/07/2024 Departure Time: 20:05 06/07/2024 Measurements Wt: 93.0 kg, Ht/Pasha: 65.0 in, BMI: 34.11 Initial Vital Sign Measured Time BP MAP HR RR O2Sat ETCO2 Temp Pain GCS RTS 16:23 06/07/2024 185/90 122 87 16 93% 98.3 F 0 Time Seen: 16:20 06/07/2024. Arrived- By private vehicle. Historian- patient. Independent historian- family. HISTORY OF PRESENT ILLNESS Chief Complaint: COUGH, SORE THROAT, FEVER, CHILLS and MUSCLE ACHES. This started 7 days and is still present. The patient has had a cough, nasal congestion, fever and chills. The patient has had sputum production (clear). No difficulty breathing or chest discomfort. REVIEW OF SYSTEMS NEUROLOGICAL: No headache. GI: No nausea, vomiting or diarrhea. CVS: No pedal edema or calf pain. ALLERGY/IMMUNO: No hay fever. PAST HISTORY thick blood 1 of 13 Narrative Bladder muscle dysfunction - overactive Surgeries: Cholecystectomy Medications: albuterol sulfate HFA 90 mcg/actuation aerosol inhaler buspirone 10 mg tablet desmopressin 0.2 mg tablet fesoterodine ER 8 mg tablet,extended release 24 hr fluticasone 250 mcg-salmeterol 50 mcg/dose blistr powdr for inhalation mirabegron ER 50 mg tablet,extended release 24 hr warfarin 2.5 mg tablet warfarin oral Allergies: latex SOCIAL HISTORY Never smoker. No alcohol use. ADDITIONAL NOTES The nursing notes have been reviewed. PHYSICAL EXAM Appearance: Alert. No acute distress. Eyes: Pupils equal, round and reactive to light. Eyes normal inspection. ENT: Ears normal. Nose normal. Neck: Normal inspection. CVS: Normal heart rate and rhythm. Heart sounds normal. Respiratory: No respiratory distress. Abdomen: Soft and nontender. Skin: Skin warm and dry. Normal skin color. Normal skin turgor. Extremities: Extremities exhibit normal ROM. Neuro: Oriented X 3. No motor deficit. No sensory deficit. 2 of 13 Narrative LABS, X-RAYS, AND EKG 12-LEAD EKG: EKG time: 16:48 06/07/2024. Normal sinus rhythm. Normal P waves. RBBB. Left axis deviation. Prior EKG unavailable. The study has been interpreted contemporaneously by me. Interpretation time: 18:31 06/07/2024. Laboratory Tests: CBC + DIFF Final CARYN: 06/07/2024 17:00:00 EDT MsgRcvd: 06/07/2024 17:21 EDT Lab Test Result Reference Status Received Comments 06/07/2024 17:21 CBC-COMPLETE CBC + DIFF Final EDT BLOOD COUNT 06/07/2024 17:21 WBC 6.5 x 10/UL 4.5 - 10.8 Final EDT 06/07/2024 17:21 RBC 4.10 x 10/UL 4.10 - 5.30 Final EDT 06/07/2024 17:21 HEMOGLOBIN 13.0 g/dl 12.0 - 16.0 Final EDT 06/07/2024 17:21 HEMATOCRIT 38.3 % 34.0 - 46.0 Final EDT 06/07/2024 17:21 MCV 93 fl 80 - 99 Final EDT 06/07/2024 17:21 MCH 32 pg 27 - 33 Final EDT 06/07/2024 17:21 MCHC 34 X10 3 32 - 36 Final EDT 06/07/2024 17:21 RDW/CV 12.9 % 12.0 - 15.6 Final EDT 3 of 13 Narrative 06/07/2024 17:21 PLATELET 254 x10/UL 150 - 450 Final EDT 06/07/2024 17:21 AUTOMATED MPV 7.1 fl 6.6 - 10.5 Final EDT DIFFERENTIAL 06/07/2024 17:21 NEUT % 74.4 % 46.0 - 76.0 Final EDT 14.4 % 06/07/2024 17:21 LYMPH % 20.0 - 45.0 Final Below low normal EDT 06/07/2024 17:21 MONOS % 8.6 % 0.0 - 10.0 Final EDT 06/07/2024 17:21 EO % 2.0 % 0.0 - 7.0 Final EDT 06/07/2024 17:21 BASO % 0.5 % 0.0 - 2.0 Final EDT 06/07/2024 17:21 Lymph # 0.94 x10/UL 0.80 - 2.80 Final EDT 06/07/2024 17:21 Neut # 4.86 x10/UL 1.50 - 7.10 Final EDT 06/07/2024 17:21 Madison # 0.57 x10/UL 0.20 - 1.00 Final EDT 06/07/2024 17:21 EO # 0.13 x10/UL 0.00 - 0.50 Final EDT 06/07/2024 17:21 Baso # 0.03 x10/UL 0.00 - 0.10 Final EDT 06/07/2024 17:21 MANUAL DIFF N/A New Order EDT 06/07/2024 17:21 MORPHOLOGY N/A New Order EDT 4 of 13 Narrative CMP with eGFR Final CARYN: 06/07/2024 17:00:00 EDT MsgRcvd: 06/07/2024 17:50 EDT Lab Test Result Reference Status Received Comments COMPREHENSIVE 06/07/2024 CMP with eGFR Final METABOLIC 17:50 EDT PANEL 121 mmol/l 06/07/2024 SODIUM SODIUM 136 - 145 Final Below low normal 17:50 EDT REPEATED 06/07/2024 POTASSIUM 4.2 mmol/L 3.5 - 5.1 Final 17:50 EDT 87 mmol/L 06/07/2024 CHLORIDE 98 - 107 Final Below low normal 17:50 EDT 06/07/2024 CO2 25.8 mmol/L 21.0 - 32.0 Final 17:50 EDT 06/07/2024 GLUCOSE 100 mg/dl 74 - 106 Final 17:50 EDT 06/07/2024 BUN 7 mg/dl 7 - 18 Final 17:50 EDT 06/07/2024 CREATININE 0.74 mg/dl 0.55 - 1.02 Final 17:50 EDT 06/07/2024 AST/SGOT 21 U/L 13 - 39 Final 17:50 EDT 06/07/2024 (more content not included)... Normal [facility] ED [facility] ER 06-08-2024 ED [facility] [address] [place] [address] [id number] 06/07/2024 Patient: SINDY SWEENEY Sex: Female : 1945 Age: 78y Item Facility Professional Category Description Code Code Quantity Fee Total Nurse/E/M EMERGENCY 138905 1 $0.00 $0.00 DEPARTMENT VISIT HIGH/URGENT SEVERITY (76966-44) Nurse/IV/IM/Infusions Hydration 924482 3 $0.00 $0.00 additional hour (55538) Nurse/IV/IM/Infusions IVP additional 203776 2 $0.00 $0.00 push (85785) Nurse/IV/IM/Infusions IVP initial 879893 1 $0.00 $0.00 (94351) Grand Total $0.00 Providers Gibson Thrasher D.O. Chief Complaint 1 of 2 Superbill COUGH, SORE THROAT, FEVER, CHILLS and MUSCLE ACHES. Principal Diagnosis Severe hyponatremia ICD-10 Codes E87.1: Hypo-osmolality and hyponatremia 2 of 2 Normal [facility] ED VISIT SUMMARYon ED VISIT SUMMARY Visit Overview Visit Overview [address] [address] [id number] 06/07/2024 Patient: SINDY SWEENEY Sex: Female : 1945 Age: 78y 06/08/2024 12:44 AM EDT ED Arrival:16:18 06/07/2024 EDT Status: Recent Travel:no Language:eng Adv Directive:Unknown Isolation Status: Ethnicity:N Fall Risk:risk Infectious Disease Exposure:no Measurements:5'5 / 165.1 Self-Harm Status:no risk Sepsis Screen:negative cm 205.0 lb / 93.0 kg Chief Complaint:BODY ACHES, COUGH, FATIGUE, known COVID-19 EXPOSURE, SINUS DRAINAGE, SORE THROAT, (1 weeks), and (Neck pain, anxiety, nasuea) ALLERGIES latex HOME MEDICATIONS albuterol sulfate HFA 90 mcg/actuation aerosol inhaler buspirone 10 mg tablet desmopressin 0.2 mg tablet 1 of 4 Visit Overview fesoterodine ER 8 mg tablet,extended release 24 hr fluticasone 250 mcg-salmeterol 50 mcg/dose blistr powdr for inhalation mirabegron ER 50 mg tablet,extended release 24 hr warfarin 2.5 mg tablet warfarin oral PAST MEDICAL HISTORY / PROBLEMS thick blood Bladder muscle dysfunction - overactive PAST SURGICAL HISTORY Cholecystectomy SOCIAL HISTORY Smoking status: No Alcohol use: No Drug use: No ED COURSE MEDICATIONS GIVEN IN EMERGENCY DEPARTMENT 17:04 06/07/24 IV NS 0.9 % 1000 mL 500 mL/hr 17:05 06/07/24 Zofran IVP 4 mg 17:42 06/07/24 KetorOLAC (Toradol) IVP 15 mg 18:21 06/07/24 IV NS 0.9 % 1000 mL 100 mL/hr 18:48 06/07/24 Fentanyl IVP 50 mcg IV SITE INFORMATION 17:05 06/07/24 Site #1 left AC, 20g. Saline lock. INTAKE OUTPUT REASSESMENT (most recent) 2 of 4 Visit Overview 16:45 06/07/24. ( Patient complains of a one week hx of general illness symptoms including dry cough, sore throat, body aches, and sinus drainage. She also complains of some weakness and fatigue over the same timeline.). GENERAL / NEURO / PSYCH: Alert. Oriented X 4. Appears in no acute distress. HEENT: Pupils equal, round and reactive to light. Mucous membranes are pink. RESPIRATORY: Respirations not labored. Chest nontender. Breath sounds within normal limits. CVS: Normal sinus rhythm noted. Capillary refill less than 2 seconds. Pulses within normal limits. GI / : Abdomen soft and nontender and normal bowel sounds. SKIN: Skin intact. Skin is warm and dry. Normal skin turgor. VITAL SIGNS First Vitals Last Vitals Temp 16:23 06/07/24 98.3 F Temp 20:05 06/07/24 98.3 F BP 16:23 06/07/24 185/90 BP 20:05 06/07/24 172/77 HR 16:23 06/07/24 87 HR 20:05 06/07/24 67 RR 16:23 06/07/24 16 RR 20:05 06/07/24 17 O2 Sat 16:23 06/07/24 93% O2 Sat 20:05 06/07/24 96% Pain 16:23 06/07/24 0 Pain 20:05 06/07/24 0 ETCO2 16:23 06/07/24 ETCO2 20:05 06/07/24 GCS 16:23 06/07/24 GCS 20:05 06/07/24 RTS 16:23 06/07/24 RTS 20:05 06/07/24 PROCEDURES NURSING INTERVENTIONS LABS / STUDIES LABS / STUDIES ORDERED CBC w Diff CMP D-Dimer EKG - ED Flu Swab (Influenzae AAg) Lactate, Serum Magnesium Rapid COVID (SARS) ANTIGEN TEST Troponin-I Troponin-I Urinalysis 3 of 4 Visit Overview CLINICAL IMPRESSION SEVERE HYPONATREMIA 4 of 4 Normal [facility] PROTHROMBIN TIME AND INRon INR Coag (PPP) [Relative time] 3.0 {INR} High 0.8 - 1.2 [facility] Comment on above: Result Comment: T HE HEMOSIL THROMBOPLASTIN REAGENT USED IN THE PROTHROMBIN TIME TEST INTERACTS WITH THE DRUG CUBICIN (DAPTOMYCIN) AND WILL RESULT IN FALSELY ELEVATED PT / INR RESULTS INR INTERPRETATION INR INDICATION PREVENTION AND TREATMENT OF THROMBOEMBOLISM ASSOCIATED WITH: 2.0 - 3.0 ATRIAL FIBRILLATION, BIOPROSTHETIC HEART VALVES, PULMONARY EMBOLISM, VENOUS THROMBOSIS, SYSTEMIC EMBOLISM POST MYOCARDIAL INFARCTION 2.5 - 3.5 MECHANICAL HEART VALVES Performed By: #### 2 [id number] #### [facility],[address] [place] [address] PROTHROMBIN TIME AND INR Normal [facility] Comment on above: Result Comment: PROT HROMBIN TIME AND INR Performed By: #### 2 37634 #### [facility],[address] [place], [place] [id number] PT-COUMADIN 33.6 sec High 9.3 - 14.1 [facility] Comment on above: Performed By: #### 2 39591 #### [facility],[address] [place], [place] [id number] CBC + DIFFon 06-07-2024 Baso # 0.03 x10EE3/UL Normal 0.00 - 0.10 [facility] Comment on above: Performed By: #### 2 07322 #### [facility],[address] [place] [address] Basophils/100 WBC (Bld) 0.5 % Normal 0.0 - 2.0 [facility] Comment on above: Performed By: #### 2 55244 #### [facility],[address] [place] [address]311 CBC + DIFF Normal [facility] Comment on above: Result Comment: CBC- COMPLETE BLOOD COUNT Performed By: #### 2 84339 #### [facility],[address] [place] [address]306 EO # 0.13 x10EE3/UL Normal 0.00 - 0.50 [facility] Comment on above: Performed By: #### 2 15216 #### [facility],[address] [place] [address]181 Eosinophils/100 WBC (Bld) 2.0 % Normal 0.0 - 7.0 [facility] Comment on above: Performed By: #### 2 84737 #### [facility],[address] [place] [address] Erythrocyte distribution width (RBC) [Ratio] 12.9 % Normal 12.0 - 15.6 [facility] Comment on above: Performed By: #### 2 98152 #### [facility],[address] [place], [place] [id number] Hematocrit (Bld) [Volume fraction] 38.3 % Normal 34.0 - 46.0 [facility] Comment on above: Performed By: #### 2 51633 #### [facility],[address] [place], [place] [phone] Hemoglobin (Bld) [Mass/Vol] 13.0 g/dL Normal 12.0 - 16.0 [facility] Comment on above: Performed By: #### 2 71954 #### [facility],[address] [place] [address] Lymph # 0.94 x10EE3/UL Normal 0.80 - 2.80 [facility] Comment on above: Performed By: #### 2 44167 #### [facility],[address] [place] [address] 04798 Lymphocytes/100 WBC (Bld) 14.4 % Low 20.0 - 45.0 [facility] Comment on above: Performed By: #### 2 49558 #### [facility],[address] [place] [address] MANUAL DIFF N/A Normal [facility] Comment on above: Performed By: #### 2 69547 #### [facility],[address] [place] [address] MCH (RBC) [Entitic mass] 32 pg Normal 27 - 33 [facility] Comment on above: Performed By: #### 2 84678 #### [facility],[address] [place] [address] MCHC 34 X10 3 Normal 32 - 36 [facility] Comment on above: Performed By: #### 2 39867 #### [place] [address] MCV (RBC) [Entitic vol] 93 fL Normal 80 - 99 [facility] Comment on above: Performed By: #### 2 95263 #### [place] [address] [place] # 0.57 x10EE3/UL Normal 0.20 - 1.00 [facility] Comment on above: Performed By: #### 2 17835 #### [place] [address] MONOS % 8.6 % Normal 0.0 - 10.0 [facility] Comment on above: Performed By: #### 2 49405 #### [place] [phone] Morphology Kevin (Bld) [Interp] N/A Normal [facility] Comment on above: Performed By: #### 2 25582 #### [place] [address] Neut # 4.86 x10EE3/UL Normal 1.50 - 7.10 [facility] Comment on above: Performed By: #### 2 53441 #### [facility],[address] [place] [address] 78362 Neutrophils/100 WBC (Bld) 74.4 % Normal 46.0 - 76.0 [facility] Comment on above: Performed By: #### 2 70220 #### [facility],[address] [place] [address]4561 PLATELET 254 x10EE3/UL Normal 150 - 450 [facility] Comment on above: Performed By: #### 2 85732 #### [facility],[address] [place] [address] 84276 Platelet mean volume (Bld) [Entitic vol] 7.1 fL Normal 6.6 - 10.5 [facility] Comment on above: Result Comment: AUTO MATED DIFFERENTIAL Performed By: #### 2 61280 #### [facility],[address] [place], [place] [phone] RBC 4.10 x 10EE6/UL Normal 4.10 - 5.30 [facility] Comment on above: Performed By: #### 2 76577 #### [facility],[address] [place], [place] [phone] WBC 6.5 x 10EE3/UL Normal 4.5 - 10.8 [facility] Comment on above: Performed By: #### 2 36520 #### [facility],[address] [place] [address] 85896 CMP with eGFRon 06-07-2024 AGE 78 years Normal [facility] Comment on above: Performed By: #### 2 03202 #### [facility],[address] [place] [address] 91792 Albumin [Mass/Vol] 3.6 g/dL Normal 3.4 - 5.0 [facility] Comment on above: Performed By: #### 2 89902 #### [facility],[address] [place], [place] [phone] Albumin/Globulin [Mass ratio] 1.4 {ratio} Normal 0.9 - 1.6 [facility] Comment on above: Performed By: #### 2 59053 #### [facility],[address] [place] [address] 25056 ALK PHOS 87 U/L Normal 46 - 116 [facility] Comment on above: Performed By: #### 2 12314 #### [facility],[address] [place], [place] [phone] ALT [Catalytic activity/Vol] 17 U/L Normal 16 - 63 [facility] Comment on above: Performed By: #### 2 47057 #### [facility],[address] [place] [address] Anion gap [Moles/Vol] 12 mmol/L Normal 10 - 20 [facility] Comment on above: Performed By: #### 2 84622 #### [facility],[address] [place] [address] AST [Catalytic activity/Vol] 21 U/L Normal 13 - 39 [facility] Comment on above: Performed By: #### 2 73319 #### [facility],[address] [place] [address]77[address] B/C RATIO 9 ratio Normal 0 - 30 [facility] Comment on above: Performed By: #### 2 79547 #### [facility],[address] [place] [address] 60524 Bilirubin [Mass/Vol] 0.6 mg/dL Normal 0.2 - 1.0 [facility] Comment on above: Performed By: #### 2 00505 #### [facility],[address] [place] [address] 29233 Calcium [Mass/Vol] 8.4 mg/dL Low 8.5 - 10.1 [facility] Comment on above: Performed By: #### 2 16872 #### [facility],[address] [place] [address] 44621 Chloride [Moles/Vol] 87 mmol/L Low 98 - 107 [facility] Comment on above: Performed By: #### 2 79203 #### [facility],[address] [place] [address] 07587 CMP with eGFR Normal [facility] Comment on above: Result Comment: COMP REHENSIVE METABOLIC PANEL Performed By: #### 2 87482 #### [place] [address] CO2 [Moles/Vol] 25.8 mmol/L Normal 21.0 - 32.0 [facility] Comment on above: Performed By: #### 2 50855 #### [facility],[address] [place] [address] Creatinine [Mass/Vol] 0.74 mg/dL Normal 0.55 - 1.02 [facility] Comment on above: Performed By: #### 2 65604 #### [facility],[address] [place], [place] [phone] GFR/1.73 sq M.predicted among non-blacks MDRD (S/P/Bld) [Vol rate/Area] mL/min/{1.73_m2} Normal 60 - 999 [facility] Comment on above: Performed By: #### 2 82269 #### [place] [address] Result Comment: ACCO RDING TO THE NATIONAL KIDNEY DISEASE EDUCATION PROGRAM(NKDE), A NORMAL eGFR IS A VALUE GREATER THAN OR EQUAL TO 60 ML/MIN/1.73 SQ METERS. CHRONIC KIDNEY DISEASE: <60mL/MIN/1.73 SQ METERS KIDNEY FAILURE: <15mL/MIN/1.73 SQ METERS THIS TEST SHOULD ONLY BE USED FOR PATIENTS 18 YEARS OF AGE AND OLDER. Globulin (S) [Mass/Vol] 2.5 g/dL Normal 1.5 - 3.8 [facility] Comment on above: Performed By: #### 2 23190 #### [place] [phone] Glucose [Mass/Vol] 100 mg/dL Normal 74 - 106 [facility] Comment on above: Performed By: #### 2 98016 #### [facility],[address] [place] [address] 13402 Potassium [Moles/Vol] 4.2 mmol/L Normal 3.5 - 5.1 [facility] Comment on above: Performed By: #### 2 80668 #### [facility],[address] [place] [address] 39001 Protein [Mass/Vol] 6.1 g/dL Low 6.4 - 8.2 [facility] Comment on above: Performed By: #### 2 61803 #### [facility],[address] [place] [address] Sodium [Moles/Vol] 121 mmol/L Low 136 - 145 [facility] Comment on above: Result Comment: SODI UM REPEATED Performed By: #### 2 28726 #### [facility],[address] [place] [address] Urea nitrogen [Mass/Vol] 7 mg/dL Normal 7 - 18 [facility] Comment on above: Performed By: #### 2 27246 #### [facility],[address] [place] [address] CORONAVIRUS (SARS) ANTIGEN T ESTon 06-07-2024 EXTERNAL QC DONE? YES Normal [facility] Comment on above: Performed By: #### 2 64162 #### [facility],[address] [place] [address] INTERNAL CONTROL PASS Normal [facility] Comment on above: Performed By: #### 2 16772 #### [facility],[address] [place], [place] [phone] SARS ANTIGEN Negative Normal NORMAL: NEGATIVE [facility] Comment on above: Performed By: #### 2 80084 #### [facility],[address] [place], [place] [phone] SEND TO ? YES Normal [facility] Comment on above: Result Comment: SARS -CoV-2 THIS TEST IS BEING USED UNDER THE FDA EUA PROCEDURE. THIS ASSAY HAS BEEN VALIDATED AT [facility] FOR USE WITH NASAL AND NASOPHARYNGEAL SWAB SPECIMENS. INTERPRETIVE DATA TEST RESULTS SHOULD ALWAYS BE CONSIDERED IN THE CONTEXT OF CLINICAL OBSERVATIONS AND EPIDEMIOLOGICAL DATA IN MAKING FINAL DIAGNOSIS AND PATIENT MANAGEMENT DECISIONS. PATIENT MANAGEMENT SHOULD FOLLOW CURRENT CDC GUIDELINES. THE [place] SARS ANTIGEN LUL DOES NOT DIFFERENTIATE BETWEEN SARS-CoV & SARS-CoV-2. A POSITIVE TEST RESULT INDICATES THE PRESENCE OF SARS-CoV-2 NUCLEOCAPSID PROTEIN ANTIGEN, AND THE PATIENT IS INFECTED WITH THE VIRUS AND PRESUMED TO BE CONTAGIOUS. A NEGATIVE TEST RESULT FOR THIS TEST MEANS THAT SARS-CoV-2 NUCLEOCAPSID PROTEIN ANTIGEN WAS NOT PRESENT IN THE SPECIMEN ABOVE THE LIMIT OF DETECTION. HOWEVER, A NEGATIVE RESULT DOES NOT RULE OUT COVID-19 AND SHOULD NOT BE USED THE SOLE BASIS FOR TREATMENT OR PATIENT MANAGEMENT DECISIONS. A NEGATIVE RESULT DOES NOT EXCLUDE THE POSSIBILITY OF COVID-19. NEGATIVE RESULTS, FROM PATIENTS WITH SYMPTOM ONSET BEYOND FIVE DAYS, SHOULD BE TREATED PRESUMPTIVE AND CONFIRMATION WITH A MOLECULAR ASSAY, IF NECESSARY, FOR PATIENT MANAGEMENT, MAY BE PERFORMED. WHEN DIAGNOSTIC TESTING IS NEGATIVE, THE POSSIBLILTY OF A FALSE NEGATIVE RESULT SHOULD BE CONSIDERED IN THE CONTEXT OF A PATIENT'S RECENT EXPOSURES AND THE PRESENCE OF CLINICAL SIGNS AND SYMPTOMS CONSISTENT WITH COVID-19. THE POSSIBILITY OF A FALSE NEGATIVE RESULT SHOULD ESPECIALLY BE CONSIDERED IF THE PATIENT'S RECENT EXPOSURES OR CLINICAL PRESENTATION INDICATE THAT COVID-19 IS LIKELY, AND DIAGNOSTIC TESTS FOR OTHER CAUSES OF ILLNESS (e.g., OTHER RESPIRATORY ILLNESS) ARE NEGATIVE. IF COVID-19 IS STILL SUSPECTED BASED ON EXPOSURE HISTORY TOGETHER WITH OTHER CLINICAL FINDINGS, RE-TESTING SHOULD BE CONSIDERED BY HEALTHCARE PROVIDERS IN CONSULTATION WITH PUBLIC HEALTH AUTHORITIES. Performed By: #### 2 19361 #### [facility],[address] [place] [address] 51271 D-DIMER, QUANTITATIVEon 10-1 D-DIMER QUANT <200 Normal 0 - 230 [facility] Comment on above: Performed By: #### 2 32788 #### [facility],[address] [place] [address] 50022 D-DIMER, QUANTITATIVE Normal [facility] Comment on above: Result Comment: FELISA T D-DIMER Performed By: #### 2 23166 #### [facility],[address] [place] [address] 88996 INFLUENZA VIRUS RAPID A/Bon 06-07-2024 INFLUENZA VIRUS RAPID A/B INFLUENZA A NEGATIVE INFLUENZA B NEGATIVE INTERNAL NEG QC PASS INTERNAL POS QC PASS EXTERNAL QC DONE? YES SEND TO ? YES A NEGATIVE TEST RESULT DOES NOT EXCLUDE INFECTION WITH INFLUENZA A OR B. THEREFORE, THE RESULTS OBTAINED FROM THIS FLU TEST SHOULD BE USED IN CONJUCTION WITH CLINICAL FINDINGS TO MAKE AN ACCURATE DIAGNOSIS. A POSITIVE RESULT DOES NOT RULE OUT CO-INFECTIONS WITH OTHER PATHOGENS OR IDENTIFY ANY SPECIFIC INFLUENZA A VIRUS SUBTYPE.CO-INFECTION WITH INFLUENZA A AND B IS RARE. IT IS RECOMMENDED THAT DUAL POSITIVE RESULTS BE CONFIRMED BY VIRAL CULTURE OR AN FDA-CLEARED INFLUENZA A AND B MOLECULAR ASSAY. INDIVIDUALS WHO HAVE RECEIVED NASALLY ADMINISTERED INFLUENZA A VACCINE MAY TEST POSITIVE IN COMMERCIALLY AVAILABLE INFLUENZA RAPID DIAGNOSTIC TESTS FOR UP TO THREE DAYS. RESULT CRITICAL? NO Normal [facility] Comment on above: Performed By: #### 2 25507 #### [facility],[address] [place] [address] 940[address] LACTATEon 06-07-2024 Lactate [Moles/Vol] 0.8 mmol/L Normal 0.4 - 2.0 [facility] Comment on above: Performed By: #### 2 01283 #### [address] [address] MAGNESIUMon 06-07-2024 Magnesium [Mass/Vol] 1.7 mg/dL Low 1.8 - 2.4 [facility] Comment on above: Performed By: #### 2 91917 #### [address] [address] TROPONINon 06-07-2024 HS TROPONIN 5.5 pg/mL Normal 0.0 - 51.4 [facility] Comment on above: Performed By: #### 2 77180 #### [facility],[address] [place] [address] 50794 Basic Metabolic Profile (BMP )on 06-03-2024 BUN/CRE 8.5 RATIO Low 10-20 [facility] Comment on above: Performed By: #### L 500.2500 #### [facility] [address] [place], [address] [place],Total 9.5 mg/dL Normal 8.5-10.1 [facility] Comment on above: Performed By: #### L 500.2500 #### [facility] [address] [place], [address] Chloride [Moles/Vol] 106 mmol/L Normal 98-107 [facility] Comment on above: Performed By: #### L 500.2500 #### [facility] [address] [place], [address] CO2 [Moles/Vol] 26.0 mmol/L Normal 21.0-32.0 [facility] Comment on above: Performed By: #### L 500.2500 #### [facility] [address] [place], [address] Creatinine [Mass/Vol] 0.82 mg/dL Normal 0.55-1.02 [facility] Comment on above: Result Comment: The validity of the calculated GFR GFRAA in patients over 70 years has not been determined. Clinical correlation is essential. Performed By: #### L 500.2500 #### [facility] [address] [place], [address] EST GFR - AA 86 mL/min Normal >60 [facility] Comment on above: Result Comment: Afri can Belarusian GFR Calc Performed By: #### L 500.2500 #### [facility] [address] [place], [address] GAP 7 Normal 5-15 [facility] Comment on above: Performed By: #### L 500.2500 #### [facility] [address] [place], [address] GFR/1.73 sq M.predicted among non-blacks MDRD (S/P/Bld) [Vol rate/Area] 71 mL/min/{1.73_m2} Normal >60 [facility] Comment on above: Result Comment: Non- GFR Calc Performed By: #### L 500.2500 #### [facility] [address] [place], [address] Glucose [Mass/Vol] 94 mg/dL Normal 74-106 [facility] Comment on above: Performed By: #### L 500.2500 #### [facility] [address] [place], [address] Potassium [Moles/Vol] 4.1 mmol/L Normal 3.5-5.1 [facility] Comment on above: Performed By: #### L 500.2500 #### [facility] [address] [place], [address] Sodium [Moles/Vol] 139 mmol/L Normal 136-145 [facility] Comment on above: Performed By: #### L 500.2500 #### [facility] [address] [place], [address] Urea nitrogen [Mass/Vol] 7 mg/dL Normal 7-18 [facility] Comment on above: Performed By: #### L 500.2500 #### [facility] [address] [place], [address] Basophil percentageOrdered B y: True Vazquez on 08-09-2023 Chloride [Moles/Vol] 106 mmol/L 98-107 [facility] Cholesterol [Mass/Vol] 160 mg/dL <200 [facility] Comment on above: <200 mg/dL Desirable 200-240 mg/dL Borderline >240 mg/dL High Risk Glucose [Mass/Vol] 81 mg/dL 74-106 [facility] Potassium [Moles/Vol] 4.0 mmol/L 3.5-5.1 [facility] Sodium [Moles/Vol] 140 mmol/L 136-145 [facility] Triglyceride [Mass/Vol] 133 mg/dL <199 [facility] Comment on above: The drugs N-Acetylcy steine and Metamizole may falsely depress this assay.Serum Triglycerides Reference Interval Normal <150 mg/dL Borderline high 150 - 199 mg/dL High 200 - 499 mg/dL Very High > or = 500 mg/dL WBC (Bld) [#/Vol] 6.8 10*3/uL 4.4-11.0 [facility] Blood erythrocytes count (nu mber/volume)Ordered By: True Vazquez on 08-09-2023 RBC (Bld) [#/Vol] 4.17 10*6/uL 4.2-5.4 [facility] Blood hemoglobin measurement (mass/volume)Ordered By: True Vazquez on 08-09-2023 Hemoglobin (Bld) [Mass/Vol] 12.9 g/dL 12.0-15.0 [facility] [facility] Blood platelet mean volumeOr dered By: True Vazquez on 08-09-2023 Platelet mean volume (Bld) [Entitic vol] 9.6 fL 6.2-12.0 [facility] Determination of erythrocyte mean corpuscular volume (MCV)Ordered By: True Vazquez on 08-09-2023 MCV (RBC) [Entitic vol] 99.0 fL 81-99 [facility] Hematocrit Auto (Bld) [Volum e fraction]Ordered By: True Vazquez on 08-09-2023 Hematocrit (Bld) [Volume fraction] 41.3 % 37-47 [facility] Iron measurement (mass/mass) Ordered By: True Vazquez on 08-09-2023 Iron (Unsp spec) [Mass/Mass] 29 ug/dL 50-170 [facility] Laboratory - Chemistry and C hemistry - challengeOrdered By: True Vazquez on 08-09-2023 CO2 [Moles/Vol] 28.0 mmol/L 21.0-32.0 [facility] Cobalamin (Vitamin B12) [Mass/Vol] 379 pg/mL 211-911 [facility] Urea nitrogen/Creatinine [Mass ratio] 8.1 mg/mg 10-20 [facility] Laboratory - Hematology and Cell countsOrdered By: True Vazquez on 08-09-2023 Erythrocyte distribution width (RBC) [Entitic vol] 49.7 fL 35.1-43.9 [facility] Erythrocyte distribution width (RBC) [Ratio] 13.5 % 11.6-14.6 [facility] MCH (RBC) [Entitic mass] 30.9 pg 27.0-32.0 [facility] MCHC Auto (RBC) [Mass/Vol]Or dered By: True Vazquez on 08-09-2023 MCHC (RBC) [Mass/Vol] 31.2 g/dL 32-36 [facility] No Panel InformationOrdered By: True Vazquez on 08-09-2023 Estimated GFR (MDRD) Amer 81 mL/min >60 [facility] Comment on above: GFR Calc Estimated GFR (MDRD) Non-Af Amer 67 mL/min >60 [facility] Comment on above: Non- GFR Calc Thyroid Stimulating Hormone (TSH) 1.08 uIU/mL 0.358-3.74 [facility] Vitamin D 25-Hydroxy 88.9 ng/mL [facility] Comment on above: Vitamin D 25(OH) Sta tus Range Deficiency <20 ng/mL (50nmol/L) Insufficiency 20 - 30 ng/mL (50 - 75 nmol/L) Sufficiency 30 - 100 ng/mL (75 - 250 nmol/L) Toxicity >100 ng/mL (>250 nmol/L) Platelets bldOrdered By: Long Vazquez on 08-09-2023 Platelets (Bld) [#/Vol] 275 10*3/uL 150-450 [facility] Serum or plasma calcium devin urement (mass/volume)Ordered By: True Vazquez on 08-09-2023 Calcium [Mass/Vol] 8.8 mg/dL 8.5-10.1 [facility] Serum or plasma cholesterol in HDL measurement (mass/volume)Ordered By: True Vazquez on 08-09-2023 Cholesterol in HDL [Mass/Vol] 70 mg/dL >40 [facility] Comment on above: The drugs N-Acetylcy steine and Metamizole may falsely depress this assay. Reference Range HDL <40 mg/dL Low HDL Cholesterol HDL >or= 60 mg/dL High HDL Cholesterol Serum or plasma cholesterol in VLDL measurement (mass/volume)Ordered By: True Vazquez on 08-09-2023 Cholesterol in VLDL [Mass/Vol] 27 mg/dL 5-40 [facility] Serum or plasma creatinine m easurement (mass/volume)Ordered By: True Vazquez on 08-09-2023 Creatinine [Mass/Vol] 0.87 mg/dL 0.55-1.02 [facility] Comment on above: The validity of the calculated GFR & GFRAA in patients over 70 years has not been determined. Clinical correlation is essential. Serum or plasma ferritin valdemar surement (mass/volume)Ordered By: True Vazquez on 08-09-2023 Ferritin [Mass/Vol] 8 ng/mL 8-252 [facility] Serum or plasma low density lipoprotein (LDL) cholesterol measurement (mass/volume)Ordered By: True Vazquez on 08-09-2023 Cholesterol in LDL [Mass/Vol] 63 mg/dL 0-130 [facility] Serum or plasma urea nitroge n measurement (mass/volume)Ordered By: True Vazquez on 08-09-2023 Urea nitrogen [Mass/Vol] 7 mg/dL 7-18 [facility] Thin prep Papanicolaou smear with manual screeningOrdered By: True Vazquez on 08-09-2023 Thin prep Papanicolaou smear with manual screening 6 5-15 [facility] Basophil percentageOrdered B y: True Vazquez on 04-10-2023 Basophil percentage 10-25 SEEN /hpf 0-5 [facility] Chloride [Moles/Vol] 103 mmol/L 98-107 [facility] Glucose [Mass/Vol] 108 mg/dL 74-106 [facility] Comment on above: Fasting Glucose resu lt from 100 to 125 mg/dL suggests IMPAIRED HOMEOSTASIS per A.D.A. criteria. Potassium [Moles/Vol] 4.0 mmol/L 3.5-5.1 [facility] Sodium [Moles/Vol] 135 mmol/L 136-145 [facility] Bilirubin Test strip Ql (U)O rdered By: True Vazquez on 04-10-2023 Bilirubin Ql (U) Negative Negative [facility] Culture, urineOrdered By: Bernardo Vazquez on 04-10-2023 Bacteria identified Cx Nom (U) Presumptive E. coli [facility] Ketones Test strip Ql (U)Ord ered By: True Vazquez on 04-10-2023 Ketones Ql (U) Negative Negative [facility] Laboratory - Chemistry and C hemistry - challengeOrdered By: True Vazquez on 04-10-2023 CO2 [Moles/Vol] 24.0 mmol/L 21.0-32.0 [facility] Urea nitrogen/Creatinine [Mass ratio] 8.7 mg/mg 10-20 [facility] Mucus LM Ql (Urine sed)Order ed By: True Vazquez on 04-10-2023 Mucus Ql (Urine sed) 0 SEEN /hpf [facility] Nitrite Test strip Ql (U)Ord ered By: True Vazquez on 04-10-2023 Nitrite Ql (U) Positive Negative [facility] No Panel InformationOrdered By: True Vazquez on 04-10-2023 Estimated GFR (MDRD) Amer 106 mL/min >60 [facility] Comment on above: GFR Calc Estimated GFR (MDRD) Non-Af Amer 88 mL/min >60 [facility] Comment on above: Non- GFR Calc Protein Test strip Ql (U)Ord ered By: True Vazquez on 04-10-2023 Protein Ql (U) Negative Negative [facility] Serum or plasma calcium devin urement (mass/volume)Ordered By: True Vazquez on 04-10-2023 Calcium [Mass/Vol] 8.7 mg/dL 8.5-10.1 [facility] Serum or plasma creatinine m easurement (mass/volume)Ordered By: True Vazquez on 04-10-2023 Creatinine [Mass/Vol] 0.69 mg/dL 0.55-1.02 [facility] Comment on above: The validity of the calculated GFR & GFRAA in patients over 70 years has not been determined. Clinical correlation is essential. Serum or plasma urea nitroge n measurement (mass/volume)Ordered By: True Vazquez on 04-10-2023 Urea nitrogen [Mass/Vol] 6 mg/dL 7-18 [facility] Squamous epithelial cells de tection in urine sediment by light microscopyOrdered By: True Vazquez on 04-10-2023 Epithelial cells.squamous LM Ql (Urine sed) 0 SEEN /hpf 5-10 [facility] Thin prep Papanicolaou smear with manual screeningOrdered By: True Vazquez on 04-10-2023 Thin prep Papanicolaou smear with manual screening 8 5-15 [facility] Urine blood detectionOrdered By: True Vazquez on 04-10-2023 RBC Ql (U) 50 /ul Negative [facility] RBC Ql (U) 0-5 SEEN /hpf 0-5 [facility] Urine clarityOrdered By: Chr istopwan Vazquez on 04-10-2023 Clarity (U) Sl. Cloudy Clear [facility] Urine color determinationOrd ered By: True Vazquez on 04-10-2023 Color (U) Yellow Yellow [facility] Urine glucose detectionOrder ed By: True Vazquez on 04-10-2023 Glucose Ql (U) Normal mg/dl Normal [facility] Urine leukocyte esterase det ection by dipstickOrdered By: True Vazquez on 04-10-2023 Leukocyte esterase Test strip Ql (U) 500 /ul Negative [facility] Urine pHOrdered By: Zeferino Vazquez on 04-10-2023 pH (U) 6.0 [pH] 5.0 - 8.0 [facility] Urine sediment bacteria coun t by microscopy (number/high power field)Ordered By: True Vazquez on 04-10-2023 Bacteria LM.HPF (Urine sed) [#/Area] 2 /[HPF] None Seen [facility] Urine specific gravity measu rementOrdered By: True Vazquez on 04-10-2023 Specific gravity (U) [Rel density] 1.010 1.002-1.03 0 [facility] Urobilinogen Auto test strip Ql (U)Ordered By: True Vazquez on 04-10-2023 Urobilinogen Ql (U) 1 mg/dl Normal [facility] Basophil percentageOrdered B y: True Vazquez on 01-01-2023 Bilirubin [Mass/Vol] 0.50 mg/dL 0.20-1.00 [facility] Comment on above: For patients on eltr ombopag therapy, use of Dimension [place] TBIL is not recommended. Chloride [Moles/Vol] 103 mmol/L 98-107 [facility] Glucose [Mass/Vol] 80 mg/dL 74-106 [facility] Potassium [Moles/Vol] 4.1 mmol/L 3.5-5.1 [facility] Protein [Mass/Vol] 6.5 g/dL 6.4-8.2 [facility] Sodium [Moles/Vol] 137 mmol/L 136-145 [facility] WBC (Bld) [#/Vol] 6.3 10*3/uL 4.4-11.0 [facility] Blood erythrocytes count (nu mber/volume)Ordered By: True Vazquez on 01-01-2023 RBC (Bld) [#/Vol] 3.74 10*6/uL 4.2-5.4 [facility] Blood hemoglobin measurement (mass/volume)Ordered By: True Vazquez on 01-01-2023 Hemoglobin (Bld) [Mass/Vol] 12.6 g/dL 12.0-15.0 [facility] Blood platelet mean volumeOr dered By: True Vazquez on 01-01-2023 Platelet mean volume (Bld) [Entitic vol] 9.7 fL 6.2-12.0 [facility] Determination of erythrocyte mean corpuscular volume (MCV)Ordered By: True Vazquez on 01-01-2023 MCV (RBC) [Entitic vol] 104.5 fL 81-99 [facility] Erythrocyte sedimentation ra teOrdered By: True Vazquez on 01-01-2023 ESR (Bld) [Velocity] 6 mm/h 0-30 [facility] Hematocrit Auto (Bld) [Volum e fraction]Ordered By: True Vazquez on 01-01-2023 Hematocrit (Bld) [Volume fraction] 39.1 % 37-47 [facility] INR in Blood by Coagulation assayOrdered By: True Vazquez on 01-01-2023 INR Coag (Bld) [Relative time] 1.9 {INR} [facility] Iron measurement (mass/mass) Ordered By: True Vazquez on 01-01-2023 Iron (Unsp spec) [Mass/Mass] 76 ug/dL 50-170 [facility] Laboratory - Chemistry and C hemistry - challengeOrdered By: True Vazquez on 01-01-2023 ALP [Catalytic activity/Vol] 63 U/L 45-117 [facility] ALT [Catalytic activity/Vol] 16 U/L 13-56 [facility] CO2 [Moles/Vol] 27.0 mmol/L 21.0-32.0 [facility] Cobalamin (Vitamin B12) [Mass/Vol] 327 pg/mL 211-911 [facility] Globulin (S) [Mass/Vol] 2.9 g/dL 2.2-4.2 [facility] Urea nitrogen/Creatinine [Mass ratio] 8.8 mg/mg 10-20 [facility] Laboratory - CoagulationOrde red By: True Vazquez on 01-01-2023 PT Coag (PPP) [Time] 22.1 s 11.7-14.9 [facility] Laboratory - Hematology and Cell countsOrdered By: True Vazquez on 01-01-2023 Erythrocyte distribution width (RBC) [Entitic vol] 49.7 fL 35.1-43.9 [facility] Erythrocyte distribution width (RBC) [Ratio] 13.1 % 11.6-14.6 [facility] MCH (RBC) [Entitic mass] 33.7 pg 27.0-32.0 [facility] MCHC Auto (RBC) [Mass/Vol]Or dered By: True Vazquez on 01-01-2023 MCHC (RBC) [Mass/Vol] 32.2 g/dL 32-36 [facility] No Panel InformationOrdered By: True Vazquez on 01-01-2023 Estimated GFR (MDRD) Amer 107 mL/min >60 [facility] Comment on above: GFR Calc Estimated GFR (MDRD) Non-Af Amer 88 mL/min >60 [facility] Comment on above: Non- GFR Calc Platelets bldOrdered By: Long Vazuqez on 01-01-2023 Platelets (Bld) [#/Vol] 216 10*3/uL 150-450 [facility] Serum or plasma C reactive p rotein measurement (mass/volume)Ordered By: True Vazquez on 01-01-2023 CRP [Mass/Vol] 4.54 mg/L 0.0-3.0 [facility] Comment on above: C-Reactive Protein ( CRP) provides useful information for thediagnosis, therapy and monitoring of inflammatory processesand associated diseases. For the evaluation of Relative Riskfor Cardiovascular Disease, a High Sensitivity CRP (HSCRP)should be ordered. Serum or plasma albumin devin urement (mass/volume)Ordered By: True Vazquez on 01-01-2023 Albumin [Mass/Vol] 3.6 g/dL 3.2-5.0 [facility] Serum or plasma albumin/glob ulin mass ratioOrdered By: True Vazquez on 01-01-2023 Albumin/Globulin [Mass ratio] 1.2 {ratio} 0.9-2.4 [facility] Serum or plasma calcium devin urement (mass/volume)Ordered By: True Vazquez on 01-01-2023 Calcium [Mass/Vol] 8.8 mg/dL 8.5-10.1 [facility] Serum or plasma creatinine m easurement (mass/volume)Ordered By: True Vazquez on 01-01-2023 Creatinine [Mass/Vol] 0.68 mg/dL 0.55-1.02 [facility] Comment on above: The validity of the calculated GFR & GFRAA in patients over 70 years has not been determined. Clinical correlation is essential. Serum or plasma ferritin valdemar surement (mass/volume)Ordered By: True Vazquez on 01-01-2023 Ferritin [Mass/Vol] 21 ng/mL 8-252 [facility] Serum or plasma urea nitroge n measurement (mass/volume)Ordered By: True Vazquez on 01-01-2023 Urea nitrogen [Mass/Vol] 6 mg/dL 7-18 [facility] Thin prep Papanicolaou smear with manual screeningOrdered By: True Vazquez on 01-01-2023 Thin prep Papanicolaou smear with manual screening 14 U/L 15-37 [facility] Thin prep Papanicolaou smear with manual screening 7 5-15 [facility] Absolute lymphocyte countOrd ered By: Dr. Vazquez on 08-08-2022 Lymphocytes Auto (Unsp spec) [#/Vol] 1.54 10*3/uL 0.83-4.51 [facility] Basophil percentageOrdered B y: Dr. Vazquez on 08-08-2022 Basophils/100 WBC (Bld) 0.5 % 0-1 [facility] Bilirubin [Mass/Vol] 0.40 mg/dL 0.20-1.00 [facility] Comment on above: For patients on eltr ombopag therapy, use of Dimension [place] TBIL is not recommended. Chloride [Moles/Vol] 103 mmol/L 98-107 [facility] Eosinophils/100 WBC (Bld) 3.3 % 0-5 [facility] Glucose [Mass/Vol] 97 mg/dL 74-106 [facility] Neutrophils (Bld) [#/Vol] 3.9 10*3/uL 2.0-7.7 [facility] Neutrophils/100 WBC (Bld) 63.2 % 47-70 [facility] Potassium [Moles/Vol] 4.2 mmol/L 3.5-5.1 [facility] Protein [Mass/Vol] 6.4 g/dL 6.4-8.2 [facility] Sodium [Moles/Vol] 137 mmol/L 136-145 [facility] WBC (Bld) [#/Vol] 6.1 10*3/uL 4.4-11.0 [facility] Blood erythrocytes count (nu mber/volume)Ordered By: Dr. Vazquez on 08-08-2022 RBC (Bld) [#/Vol] 3.80 10*6/uL 4.2-5.4 [facility] Blood hemoglobin measurement (mass/volume)Ordered By: Dr. Vazquez on 08-08-2022 Hemoglobin (Bld) [Mass/Vol] 12.8 g/dL 12.0-15.0 [facility] Blood lymphocytes/100 leukoc ytesOrdered By: Dr. Vazquez on 08-08-2022 Lymphocytes/100 WBC (Bld) 25.2 % 19-41 [facility] Blood monocytes/100 leukocyt esOrdered By: Dr. Vazquez on 08-08-2022 Monocytes/100 WBC (Bld) 7.5 % 0-10 [facility] Blood platelet mean volumeOr dered By: Dr. Vazquez on 08-08-2022 Platelet mean volume (Bld) [Entitic vol] 9.4 fL 6.2-12.0 [facility] Determination of erythrocyte mean corpuscular volume (MCV)Ordered By: Dr. Vazquez on 08-08-2022 MCV (RBC) [Entitic vol] 103.9 fL 81-99 [facility] Erythrocyte sedimentation ra teOrdered By: Dr. Vazquez on 08-08-2022 ESR (Bld) [Velocity] 5 mm/h 0-30 [facility] Hematocrit Auto (Bld) [Volum e fraction]Ordered By: Dr. Vazquez on 08-08-2022 Hematocrit (Bld) [Volume fraction] 39.5 % 37-47 [facility] Iron measurement (mass/mass) Ordered By: Dr. Vazquez on 08-08-2022 Iron (Unsp spec) [Mass/Mass] 47 ug/dL 50-170 [facility] Laboratory - Chemistry and C hemistry - challengeOrdered By: Dr. Vazquez on 08-08-2022 ALP [Catalytic activity/Vol] 68 U/L 45-117 [facility] ALT [Catalytic activity/Vol] 15 U/L 13-56 [facility] CO2 [Moles/Vol] 28.0 mmol/L 21.0-32.0 [facility] Cobalamin (Vitamin B12) [Mass/Vol] 458 pg/mL 211-911 [facility] Globulin (S) [Mass/Vol] 2.7 g/dL 2.2-4.2 [facility] Magnesium [Mass/Vol] 2.0 mg/dL 1.6-2.6 [facility] Urea nitrogen/Creatinine [Mass ratio] 7.2 mg/mg 10-20 [facility] Laboratory - Hematology and Cell countsOrdered By: Dr. Vazquez on 08-08-2022 Erythrocyte distribution width (RBC) [Entitic vol] 50.6 fL 35.1-43.9 [facility] Erythrocyte distribution width (RBC) [Ratio] 13.2 % 11.6-14.6 [facility] Immature granulocytes/100 WBC (Bld) 0.300 % 0.0-0.9 [facility] Comment on above: IG% - Immature Granu locytes (promyelocytes, myelocytes and metamyelocytes) > 1% indicates that a LEFT SHIFT is Present. MCH (RBC) [Entitic mass] 33.7 pg 27.0-32.0 [facility] Nucleated RBC/100 WBC (Bld) [Ratio] 0.3 % 0-5 [facility] MCHC Auto (RBC) [Mass/Vol]Or dered By: Dr. Vazquez on 08-08-2022 MCHC (RBC) [Mass/Vol] 32.4 g/dL 32-36 [facility] No Panel InformationOrdered By: Dr. Vazquez on 08-08-2022 Estimated GFR (MDRD) Amer 84 mL/min >60 [facility] Comment on above: GFR Calc Estimated GFR (MDRD) Non-Af Amer 70 mL/min >60 [facility] Comment on above: Non- GFR Calc Ionized Calcium 5.3 mg/dL 4.5-5.6 [facility] Comment on above: Performed at: [facility] [id number] [place], [place] [id number] Director: Mando Dacosta [facility], Phone: [phone] at: [facility] [id number] Director: Milad Harley PhD, Phone: [phone] MTHFR Thermolabile Variant DNA Anal Comment . 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 [id number]), legacy name: [id number] - Not Detected Interpretation:This result is not associated with an increased risk forhyperhomocysteinemia. See Additional Clinical Informationand Comments.Additional Clinical Information:Hyperhomocysteinemia is multifactorial involving genetic,clinical, and environmental risk factors. Reduced enzymeactivity of methylenetetrahydrofolate reductase (MTHFR) cecilio genetic risk factor for hyperhomocysteinemia,particularly when serum folate levels are low. There aretwo common variants in the MTHFR gene that can decreaseenzyme activity; c.665C>T (p. [id number]), legacy [id number], and c.1286A>C (p. [id number]), legacy name [id number].These variants do not independently increase risk ofconditions related to hyperhomocysteinemia in the absenceof elevated homocysteine levels. Measurement of totalplasma homocysteine is recommended. Patients should sharetheir MTHFR genotype with physicians who are makingdecisions regarding chemotherapy treatments that depend onfolate, such as methotrexate.Guidelines do not recommend genotyping of these two MTHFRvariants in the evaluation of venous thrombosis orobstetric risk due to limited evidence of clinical utility(PMID: 55853543). Comments:Genetic Coordinators are available for health careproviders to discuss results at [phone] Details:Variants Analyzed: c.665C>T (p. [id number]), legacy name:[id number] and c.1286A>C (p. [id number]), legacy name: [id number]/Limitations:DNA analysis of the MTHFR gene was performed by PCRamplification followed by restriction enzyme analysis. Thediagnostic sensitivity is >99%. Results must be combinedwith clinical information for the most accurateinterpretation. Molecular-based testing is highlyaccurate, but as in any laboratory test, diagnosticerrors may occur. False positive or false negative resultsmay occur for reasons that include genetic variants, bloodtransfusions, bone marrow transplantation, somatic ortissue-specific mosaicism, mislabeled samples, or erroneousrepresentation of family relationships.This test was developed and its performancecharacteristics determined by [employer]. It has not beencleared or approved by the Food and Drug Administration.References:Bryant SE, Alejo CJ, Toña HV. [facility] PracticeGuideline: lack of evidence for MTHFR polymorphism testing.[employer] Med. 2012;15(2):153-6. doi: 10.1038/gim.2012.165.Epub 2012Aug 22. PMID: 00332744.[employer]'Committee on Practice Bulletins-Obstetrics. ACOG PracticeBulletin No. 197: Inherited Thrombophilias in .Obstet Gynecol. 2018 Feb;132(1):e18-e34. doi:10.1097/AOG.[id number]. Erratum in: Obstet Gynecol.2018 May;132(4):1069. PMID: [id number].Kaia Lambert, PhD, Harris Biswas, PhDKenroy Slaughter, PhD, Marisol Palmer, PhD, Loree Mann, PhD, FACW Jerrica Prather, PhD, Magdiel Villalobos, PhD, Mireya Vora, PhD, FAC Parathyroid Hormone (Intact) 74.0 pg/mL 18.4-80.1 [facility] Thyroid Stimulating Hormone (TSH) 1.28 uIU/mL 0.358-3.74 [facility] Vitamin D 25-Hydroxy 50.9 ng/mL [facility] Comment on above: Vitamin D 25(OH) Sta tus Range Deficiency <20 ng/mL (50nmol/L) Insufficiency 20 - 30 ng/mL (50 - 75 nmol/L) Sufficiency 30 - 100 ng/mL (75 - 250 nmol/L) Toxicity >100 ng/mL (>250 nmol/L) Platelets bldOrdered By: Dr. Vazquez on 08-08-2022 Platelets (Bld) [#/Vol] 248 10*3/uL 150-450 [facility] Serum or plasma C reactive p rotein measurement (mass/volume)Ordered By: Dr. Vazquez on 08-08-2022 CRP [Mass/Vol] 4.39 mg/L 0.0-3.0 [facility] Comment on above: C-Reactive Protein ( CRP) provides useful information for thediagnosis, therapy and monitoring of inflammatory processesand associated diseases. For the evaluation of Relative Riskfor Cardiovascular Disease, a High Sensitivity CRP (HSCRP)should be ordered. Serum or plasma albumin devin urement (mass/volume)Ordered By: Dr. Vazquez on 08-08-2022 Albumin [Mass/Vol] 3.7 g/dL 3.2-5.0 [facility] Serum or plasma albumin/glob ulin mass ratioOrdered By: Dr. Vazquez on 08-08-2022 Albumin/Globulin [Mass ratio] 1.4 {ratio} 0.9-2.4 [facility] Serum or plasma calcium devin urement (mass/volume)Ordered By: Dr. Vazquez on 08-08-2022 Calcium [Mass/Vol] 8.5 mg/dL 8.5-10.1 [facility] Serum or plasma creatinine m easurement (mass/volume)Ordered By: Dr. Vazquez on 08-08-2022 Creatinine [Mass/Vol] 0.84 mg/dL 0.55-1.02 [facility] Comment on above: The validity of the calculated GFR & GFRAA in patients over 70 years has not been determined. Clinical correlation is essential. Serum or plasma ferritin valdemar surement (mass/volume)Ordered By: Dr. Vazquez on 08-08-2022 Ferritin [Mass/Vol] 12 ng/mL 8-252 [facility] Serum or plasma urea nitroge n measurement (mass/volume)Ordered By: Dr. Vazquez on 08-08-2022 Urea nitrogen [Mass/Vol] 6 mg/dL 7-18 [facility] Serum rheumatoid factor dete ctionOrdered By: Dr. Vazquez on 08-08-2022 Rheumatoid factor Ql (S) < 10.0 IU/mL <15 [facility] Thin prep Papanicolaou smear with manual screeningOrdered By: Dr. Vazquez on 08-08-2022 Thin prep Papanicolaou smear with manual screening 12 U/L 15-37 [facility] Thin prep Papanicolaou smear with manual screening 6 5-15 [facility] Thin prep Papanicolaou smear with manual screening Not Reportable [facility] Absolute lymphocyte counton 05-02-2022 Lymphocytes Auto (Unsp spec) [#/Vol] 1.36 10*3/uL 0.83-4.51 [facility] Work Phone: Basophil percentageon 2021 Basophil percentage 0 SEEN /hpf 0-5 [facility] Work Phone: [phone] Basophils/100 WBC (Bld) 0.4 % 0-1 [facility] Work Phone: Chloride [Moles/Vol] 103 mmol/L 98-107 [facility] Work Phone: Eosinophils/100 WBC (Bld) 2.5 % 0-5 [facility] Work Phone: [phone] Glucose [Mass/Vol] 97 mg/dL 74-106 [facility] Work Phone: Neutrophils (Bld) [#/Vol] 6.2 10*3/uL 2.0-7.7 [facility] Work Phone: [phone] Neutrophils/100 WBC (Bld) 73.8 % 47-70 [facility] Work Phone: Potassium [Moles/Vol] 3.7 mmol/L 3.5-5.1 [facility] Phone: Sodium [Moles/Vol] 140 mmol/L 136-145 [facility] Work Phone: [phone] WBC (Bld) [#/Vol] 8.4 10*3/uL 4.4-11.0 [facility] Work Phone: Bilirubin Test strip Ql (U)o n 05-02-2022 Bilirubin Ql (U) Negative Negative [facility] Work Phone: [phone] Blood erythrocytes count (nu mber/volume)on 05-02-2022 RBC (Bld) [#/Vol] 4.09 10*6/uL 4.2-5.4 [facility] Work Phone: [phone] Blood hemoglobin measurement (mass/volume)on 05-02-2022 Hemoglobin (Bld) [Mass/Vol] 13.7 g/dL 12.0-15.0 [facility] Work Phone: Blood lymphocytes/100 leukoc yteson 05-02-2022 Lymphocytes/100 WBC (Bld) 16.1 % 19-41 [facility] Work Phone: Blood monocytes/100 leukocyt eson 05-02-2022 Monocytes/100 WBC (Bld) 7.0 % 0-10 [facility] Work Phone: Blood platelet mean volumeon 05-02-2022 Platelet mean volume (Bld) [Entitic vol] 9.1 fL 6.2-12.0 [facility] Work Phone: [phone] Determination of erythrocyte mean corpuscular volume (MCV)on 05-02-2022 MCV (RBC) [Entitic vol] 100.7 fL 81-99 [facility] Work Phone: Hematocrit Auto (Bld) [Volum e fraction]on 05-02-2022 Hematocrit (Bld) [Volume fraction] 41.2 % 37-47 [facility] Work Phone: INR in Blood by Coagulation assayon 05-02-2022 INR Coag (Bld) [Relative time] 1.9 {INR} [facility] Work Phone: Ketones Test strip Ql (U)on 05-02-2022 Ketones Ql (U) Negative Negative [facility] Work Phone: Laboratory - Chemistry and C hemistry - challengeon 05-02-2022 CO2 [Moles/Vol] 29.0 mmol/L 21.0-32.0 [facility] Work Phone: Urea nitrogen/Creatinine [Mass ratio] 6.0 mg/mg 10-20 [facility] Work Phone: Laboratory - Coagulationon 0 05-02-2022 PT Coag (PPP) [Time] 21.7 s 11.7-14.9 [facility] Work Phone: Laboratory - Hematology and Cell countson 05-02-2022 Erythrocyte distribution width (RBC) [Entitic vol] 47.8 fL 35.1-43.9 [facility] Work Phone: Erythrocyte distribution width (RBC) [Ratio] 12.8 % 11.6-14.6 [facility] Work Phone: Immature granulocytes/100 WBC (Bld) 0.200 % 0.0-0.9 [facility] Work Phone: Comment on above: IG% - Immature Granu locytes (promyelocytes, myelocytes and metamyelocytes) > 1% indicates that a LEFT SHIFT is Present. MCH (RBC) [Entitic mass] 33.5 pg 27.0-32.0 [facility] Work Phone: Nucleated RBC/100 WBC (Bld) [Ratio] 0 % 0-5 [facility] Work Phone: MCHC Auto (RBC) [Mass/Vol]on 05-02-2022 MCHC (RBC) [Mass/Vol] 33.3 g/dL 32-36 [facility] Work Phone: Mucus LM Ql (Urine sed)on Mucus Ql (Urine sed) 0 SEEN /hpf [facility] Work Phone: Nitrite Test strip Ql (U)on 05-02-2022 Nitrite Ql (U) Negative Negative [facility] Work Phone: No Panel Informationon 05-02 Estimated Creatinine Clearance Calc 50.27 ml/min [facility] Work Phone: Estimated GFR (MDRD) Amer 85 mL/min >60 [facility] Work Phone: Comment on above: GFR Calc Estimated GFR (MDRD) Non-Af Amer 70 mL/min >60 [facility] Work Phone: Comment on above: Non- GFR Calc Troponin I High Sensitivity 5 pg/mL 3.0-54.0 [facility] Work Phone: Comment on above: Please Note: New Neftali t Units and Gender Specific Reference Ranges. For more information see Policy Stat Procedure [place] High Sensitivity Troponin (TNIH) and attachments. Platelets bldon 05-02-2022 Platelets (Bld) [#/Vol] 187 10*3/uL 150-450 [facility] Work Phone: Protein Test strip Ql (U)on 05-02-2022 Protein Ql (U) Negative Negative [facility] Work Phone: Serum or plasma calcium devin urement (mass/volume)on 05-02-2022 Calcium [Mass/Vol] 9.3 mg/dL 8.5-10.1 [facility] Work Phone: Serum or plasma creatinine m easurement (mass/volume)on 05-02-2022 Creatinine [Mass/Vol] 0.83 mg/dL 0.55-1.02 [facility] Work Phone: Comment on above: The validity of the calculated GFR & GFRAA in patients over 70 years has not been determined. Clinical correlation is essential. Serum or plasma urea nitroge n measurement (mass/volume)on 05-02-2022 Urea nitrogen [Mass/Vol] 5 mg/dL 7-18 [facility] Work Phone: Squamous epithelial cells de tection in urine sediment by light microscopyon 05-02-2022 Epithelial cells.squamous LM Ql (Urine sed) 0 SEEN /hpf 5-10 [facility] Work Phone: Thin prep Papanicolaou smear with manual screeningon 05-02-2022 Thin prep Papanicolaou smear with manual screening 8 5-15 [facility] Work Phone: Urine blood detectionon 04-20 RBC Ql (U) Negative Negative [facility] Work Phone: RBC Ql (U) 0 SEEN /hpf 0-5 [facility] Work Phone: Urine clarityon 05-02-2022 Clarity (U) Clear Clear [facility] Work Phone: Urine color determinationon 05-02-2022 Color (U) Yellow Yellow [facility] Work Phone: Urine glucose detectionon Glucose Ql (U) Normal mg/dl Normal [facility] Work Phone: Urine leukocyte esterase det ection by dipstickon 05-02-2022 Leukocyte esterase Test strip Ql (U) Negative Negative [facility] Work Phone: Urine pHon 05-02-2022 pH (U) 7.0 [pH] 5.0 - 8.0 [facility] Work Phone: Urine sediment bacteria coun t by microscopy (number/high power field)on 05-02-2022 Bacteria LM.HPF (Urine sed) [#/Area] 0 /[HPF] None Seen [facility] Work Phone: Urine specific gravity measu rementon 05-02-2022 Specific gravity (U) [Rel density] 1.010 1.002-1.03 0 [facility] Work Phone: Urobilinogen Auto test strip Ql (U)on 05-02-2022 Urobilinogen Ql (U) Normal mg/dl Normal [facility] Work Phone: Absolute lymphocyte counton 02-01-2022 Lymphocytes Auto (Unsp spec) [#/Vol] 1.59 10*3/uL 0.83-4.51 [facility] Work Phone: Basophil percentageon 2021 Basophils/100 WBC (Bld) 0.3 % 0-1 [facility] Work Phone: Bilirubin [Mass/Vol] 0.30 mg/dL 0.20-1.00 [facility] Work Phone: Comment on above: For patients on eltr ombopag therapy, use of Dimension [place] TBIL is not recommended. Chloride [Moles/Vol] 102 mmol/L 98-107 [facility] Work Phone: Eosinophils/100 WBC (Bld) 2.0 % 0-5 [facility] Work Phone: Glucose [Mass/Vol] 100 mg/dL 74-106 [facility] Work Phone: Comment on above: Fasting Glucose resu lt from 100 to 125 mg/dL suggests IMPAIRED HOMEOSTASIS per A.D.A. criteria. Neutrophils (Bld) [#/Vol] 5.2 10*3/uL 2.0-7.7 [facility] Work Phone: Neutrophils/100 WBC (Bld) 69.7 % 47-70 [facility] Work Phone: Potassium [Moles/Vol] 4.3 mmol/L 3.5-5.1 [facility] Work Phone: Protein [Mass/Vol] 7.1 g/dL 6.4-8.2 [facility] Work Phone: Sodium [Moles/Vol] 137 mmol/L 136-145 [facility] Work Phone: WBC (Bld) [#/Vol] 7.5 10*3/uL 4.4-11.0 [facility] Work Phone: Blood erythrocytes count (nu mber/volume)on 02-01-2022 RBC (Bld) [#/Vol] 4.22 10*6/uL 4.2-5.4 [facility]: Blood hemoglobin measurement (mass/volume)on 02-01-2022 Hemoglobin (Bld) [Mass/Vol] 13.9 g/dL 12.0-15.0 [facility] Work Phone: Blood lymphocytes/100 leukoc yteson 02-01-2022 Lymphocytes/100 WBC (Bld) 21.1 % 19-41 [facility] Work Phone: Blood monocytes/100 leukocyt eson 02-01-2022 Monocytes/100 WBC (Bld) 6.6 % 0-10 [facility] Work Phone: Blood platelet mean volumeon 02-01-2022 Platelet mean volume (Bld) [Entitic vol] 9.1 fL 6.2-12.0 [facility] Work Phone: Determination of erythrocyte mean corpuscular volume (MCV)on 02-01-2022 MCV (RBC) [Entitic vol] 98.8 fL 81-99 [facility] Work Phone: Erythrocyte sedimentation ra eugene 02-01-2022 ESR (Bld) [Velocity] 10 mm/h 0-30 [facility] Work Phone: Hematocrit Auto (Bld) [Volum e fraction]on 02-01-2022 Hematocrit (Bld) [Volume fraction] 41.7 % 37-47 [facility] Work Phone: Iron measurement (mass/mass) on 02-01-2022 Iron (Unsp spec) [Mass/Mass] 48 ug/dL 50-170 [facility] Work Phone: Laboratory - Chemistry and C hemistry - challengeon 02-01-2022 ALP [Catalytic activity/Vol] 62 U/L 45-117 [facility] Work Phone: ALT [Catalytic activity/Vol] 20 U/L 13-56 [facility] Work Phone: CO2 [Moles/Vol] 29.0 mmol/L 21.0-32.0 [facility] Work Phone: Cobalamin (Vitamin B12) [Mass/Vol] 1309 pg/mL 211-911 [facility] Work Phone: Globulin (S) [Mass/Vol] 3.3 g/dL 2.2-4.2 [facility] Work Phone: Magnesium [Mass/Vol] 1.8 mg/dL 1.6-2.6 [facility] Work Phone: Urea nitrogen/Creatinine [Mass ratio] 9.4 mg/mg 10-20 [facility] Work Phone: Laboratory - Hematology and Cell countson 02-01-2022 Erythrocyte distribution width (RBC) [Entitic vol] 46.2 fL 35.1-43.9 [facility] Work Phone: [phone] Erythrocyte distribution width (RBC) [Ratio] 12.7 % 11.6-14.6 [facility] Work Phone: Immature granulocytes/100 WBC (Bld) 0.300 % 0.0-0.9 [facility] Work Phone: Comment on above: IG% - Immature Granu locytes (promyelocytes, myelocytes and metamyelocytes) > 1% indicates that a LEFT SHIFT is Present. MCH (RBC) [Entitic mass] 32.9 pg 27.0-32.0 [facility] Work Phone: Nucleated RBC/100 WBC (Bld) [Ratio] 0 % 0-5 [facility] Work Phone: MCHC Auto (RBC) [Mass/Vol]on 02-01-2022 MCHC (RBC) [Mass/Vol] 33.3 g/dL 32-36 [facility] Work Phone: No Panel Informationon 02-01 Estimated GFR (MDRD) Amer 83 mL/min >60 [facility] Work Phone: Comment on above: GFR Calc Estimated GFR (MDRD) Non-Af Amer 69 mL/min >60 [facility] Work Phone: Comment on above: Non- GFR Calc Thyroid Stimulating Hormone (TSH) 1.13 uIU/mL 0.358-3.74 [facility] Work Phone: Vitamin D 25-Hydroxy 66.7 ng/mL [facility] Work Phone: Comment on above: Vitamin D 25(OH) Sta tus Range Deficiency <20 ng/mL (50nmol/L) Insufficiency 20 - 30 ng/mL (50 - 75 nmol/L) Sufficiency 30 - 100 ng/mL (75 - 250 nmol/L) Toxicity >100 ng/mL (>250 nmol/L) Platelets bldon 02-01-2022 Platelets (Bld) [#/Vol] 254 10*3/uL 150-450 [facility] Work Phone: Serum or plasma albumin devin urement (mass/volume)on 02-01-2022 Albumin [Mass/Vol] 3.8 g/dL 3.2-5.0 [facility] Work Phone: Serum or plasma albumin/glob ulin mass ratioon 02-01-2022 Albumin/Globulin [Mass ratio] 1.2 {ratio} 0.9-2.4 [facility] Work Phone: Serum or plasma calcium devin urement (mass/volume)on 02-01-2022 Calcium [Mass/Vol] 9.1 mg/dL 8.5-10.1 [facility] Work Phone: Serum or plasma creatinine m easurement (mass/volume)on 02-01-2022 Creatinine [Mass/Vol] 0.85 mg/dL 0.55-1.02 [facility] Work Phone: Comment on above: The validity of the calculated GFR & GFRAA in patients over 70 years has not been determined. Clinical correlation is essential. Serum or plasma ferritin valdemar surement (mass/volume)on 02-01-2022 Ferritin [Mass/Vol] 15 ng/mL 8-252 [facility] Work Phone: Serum or plasma urea nitroge n measurement (mass/volume)on 02-01-2022 Urea nitrogen [Mass/Vol] 8 mg/dL 7-18 [facility] Work Phone: Thin prep Papanicolaou smear with manual screeningon 02-01-2022 Thin prep Papanicolaou smear with manual screening 17 U/L 15-37 [facility] Work Phone: Thin prep Papanicolaou smear with manual screening 6 5-15 [facility] Work Phone: Office Visit: discuss dysmot ilityon 04-11-2017 Documentation of current medications (procedure) Done Invalid Interpretation Code [facility] Work Phone: Fall risk assessment No Invalid Interpretation Code [facility] Work Phone: Tobacco use [facility] Never smoker Invalid Interpretation Code [facility] Work Phone: CNCOon 04-03-2017 CNCO Letter Freddie Coello ra [id number] [place], [place] [address]Wrrrbi: Fax: [facility] 2016Dear Ms. Martinez was a pleasure to see you on March 08, [address] [facility] I tried to reach you by telephone but was unsuccessful.Therefore, I am writing to inform you that the results of the CT scan of theabdomen did not show any narrowing of the bowels. It does continue to showthe hiatal hernia which we were already aware of. As we had previouslydiscussed, we do not believe the hiatal hernia is the cause of your symptoms.At this point, I would recommend continuing the plan as we had discussedduring your office visit, including carefully monitoring your symptoms andeating small frequent meals. I do not favor surgical repair of the herniasince it is not responsible for any significant difficulties.Please do not hesitate to call me with any questions or concerns.Meena Betancourt MD(electronically signed to expedite mailing) Normal [facility] CT ABDOMEN W IVCONon -25-[address]BDOMEN W IVCON * * *Final Report* * *DATE OF EXAM: Mar 13 2017 3:13PM [facility] 0533 - CT ABDOMEN W IVCON / REASON: Unspecified abdominal pain * * * * Physician Interpretation * * * * EXAMINATION: CT ABDOMEN WITH IV CONTRASTCLINICAL HISTORY: 71-year-old woman with mid abdominal pain just above the navel, history of appendectomy and cholecystectomy and tubal ligationTECHNIQUE: CT of the abdomen was performed using standard technique, scanning from just above the dome of the diaphragm to the iliac crest.M: CTAbd_xContrast:IV: 145 ml of Omnipaque 300Oral: 50 ml of 50ML Omnipaque 240 W 850ML WaterCT Radiation dose: Integrated Dose-length product (DLP) for this visit = 483 mGy*cm.CT Dose Reduction Employed: Automated exposure control (AEC)COMPARISON: CT abdomen and pelvis 11/11/2012RESULT:Liver: There is a cyst in segment 5/6. There is also focal fat adjacent to the falciform ligament. A few subcentimeter low-attenuation lesions are too small to characterize.Biliary: Mild intra and extrahepatic biliary ductal dilation appears similar to the prior exam, and is likely related to prior cholecystectomy.Spleen: No mass. No splenomegaly.Pancreas: No mass or duct dilation.Adrenals:No mass.Kidneys: No mass, calculus or hydronephrosis.GI tract: A large hiatal hernia contains the majority of the stomach in organoaxial position. The stomach is not dilated, and contrast passes into distal loops of small bowel. There is no gastric pneumatosis, and there is a small amount of fluid in the hernia sac. This has increased in size compared to the prior exam in 2012. There are multiple colonic diverticula, without evidence of diverticulitis. There is also a large second portion duodenal diverticulum (series 3, image 52) without wall thickening or adjacent inflammatory change.Lymph nodes: There are multiple prominent mesenteric lymph nodes, particularly in the right lower quadrant, measuring up to 8 to 9 mm in short axis, not significantly changed compared to 11/04/2012.Mesentery/Perito neum: No ascites or mass.Retroperitoneum: No mass.Vasculature: The celiac axis and SMA are patent. The portal vein and branches, splenic vein, SMV, and hepatic veins are patent. Arterial atherosclerotic disease without aneurysm.Bones/Soft Tissues: Degenerative changes.Lower thorax: Small pericardial effusion. Left lower lobe atelectasis adjacent to the hiatal hernia.IMPRESSION:Large hiatal hernia containing majority of the stomach in organoaxial position without evidence of obstruction.Colonic diverticula and large second portion duodenal diverticulum without evidence of diverticulitis. NO TE: No imaging follow-up is recommended for any of the following incidentally detected lesions: liver lesions less than or equal to 0.5 cm, cystic kidney lesions less than 1.0 cm, or adrenal lesions less than or equal to 1.0 cm, in this adult patient (18 years or older).ACR Whitepaper: Managing Incidental Findings on Abdominal CT. JACR 2010; 7:754Transcriptionist: OSORIO Transcribe Date/Time: Mar 13 2017 4:11PDictated by : WESLY REBOLLEDO MDThis examination was interpreted and the report reviewed and electronically signed by: WESLY REBOLLEDO MD on Mar 13 2017 4:46PM EST Normal [facility] PROGRESSon 03-13-2017 PROGRESS HNO ID: [id number] thor: Jennifer Maier CtService: (none)Author Type: (none)Type: Progress NotesFiled: 03/13/2017 3:16 PMNote Text: Radiology Service Progress NotePATIENT NAME: Sindy SweeneyMRN: [id number] OF SERVICE: March 13, 2017TIME: 3:15 PMPATIENT IDENTITY VERIFICATION COMPLETED USING TWO (2) METHODS: Patientconfirmed name verbally and Date of .PATIENT GENDER DATA: Female. status: : NoBreastfeeding status: NO.PATIENT RELEVANT IMPLANT DATA REVIEWED: Not ApplicableCONTRAST INDUCED NEPHROPATHY RISK FACTORS: Patient age > 60 yearsCREATININE:CreatinineD ate Value Ref Range Ouakhv2311/14/2012 0.66 (L) 0.70 - 1.40 mg/dL Final11/13/2012 0.60 (L) 0.70 - 1.40 mg/dL Final11/12/2012 0.53 (L) 0.70 - 1.40 mg/dL Final P.O.C.T. RESULTS: POCT Creatinine Results: 0.7 mg/dl and Q.C. = OK.March 13, 2017REFERENCE RANGE:Reference range (age 0-9 years) 0.30 - 1.00 mg/dLReference range (age 10-14 years) 0.30 - 1.20 mg/dLReference range (age 15-18 years) 0.40 - 1.30 mg/dLReference range (age 19-99 years ) 0.70-1.40 mg/dLCALCULATED GFR:RADIOLOGIST NOTIFIED?: NoALLERGIES: Reviewed and unchangedCONTRAST ALLERGY: NO.PERIPHERAL IV ACCESS: Ambulatory: IV type: A peripheral IV was startedin the Left antecubital site with a Angio cath: 20 gauge., Siteassessment: Clean,Dry and Intact, Site disposition DiscontinuedRADIOLOGY DEPARTMENT: CT; Exam(s) Completed: AbdomenSIGNED BY: Jennifer Maier CtJuly 2016 3:15 PM Normal [facility] Ed Creatinineon 03-13- 017 Creatinine 0.7 mg/dL Normal 0.7-1.4 [facility] CNOVon 03-08-2017 CNOV Office Visit (GASTMN) -------SINDY SWEENEY ([id number]) 1945 FDate Time Provider Department03/08/17 12:40 PM MEENA BETANCOURT (SONAL) GASTMN During your visit today, we recorded the following information about you: Temperature Pulse Blood pressure Weight 97.3 degrees 75/minute 135/70 92.2 kg Height 1.626 Lisset Daniel MD 03/08/2017 2:25 PM SignedDEPARTMENT OF GASTROENTEROLOGY - NEW PATIENT/CONSULTREASON FOR VISITSujam Sweeney is a 71 year old female who is scheduled at the request ofStephanie Smith for New Patient (Esophageal Dysmotility). My finalrecommendations will be communicated back to the requesting physician by theway of the shared medical record, fax, or via US MailHISTORY OF PRESENT ILLNESSSindy Sweeney is a 71 year old female who presents today for an evaluationof dysphagia.Reports that her symptoms started December/January 2017 when she started havingepigastric pain + chest pain with eating food. She has been evaluated at OSHfrom the cardiac perspective which was reportedly negative. She was told shehad a hiatal hernia and was asked to get that evaluated further. Underwent EGD02/06/17 which was unremarkable except for hiatal hernia + mild distalesophagitis. She then underwent a manometry which showed findings consistentwith ANDquot;ineffective esophageal motilityANDquot;.Reports that her symptoms are episodic, comes as an ANDquot;attackANDquot; and sheis asymptomatic in between. Describes the symptoms as a ANDquot;spasmANDquot; +swelling up of her abdomen, she feels improvement with rubbing her abdomen.Always comes on with food, never without - mostly to solid food. She has goneto the ER twice. She has stopped eating large portions, she has switched mostlyto shakes/liquids + soft/pureed foods like mashed potatoes which has helped.She has also been started on Sucralfate which she also feels has helpedsignificantly. She is also on Nexium 40 mg daily which she feels also helps.+ weight loss - 35lb over 2 months. No blood in stool. No fever/chills. Nonausea/vomiting. No h/o crohn's disease.Ba swallow 01/08/2017No stricture. Moderate hiatal hernia. Pt ingested a 12 mm tablet of bariumwithout any difficulty.Past surgical history is notable for remote cholecystectomy and appendectomy.Of note, she had an episode of gonadal vein thrombosis in 2012. CT Abdo w/contrast from that time:NONSPECIFIC RIGHT EXTRAPERITONEAL AND NOW MILD RIGHT LOWER QUADRANTINTRAPERITONEAL INFLAMMATORY CHANGES AND FREE FLUID OF UNCERTAINETIOLOGY. THESE ARE POSSIBLY SECONDARY TO RIGHT GONADAL VEIN THROMBOSIS.SUGGEST A TRANSVAGINAL ULTRASOUND TO ACCESS OVARIAN PATHOLOGY.PAST MEDICAL HISTORYDiagnosis Date- Abdominal pain 01/2017- Anemia- Dysphagia 01/2017- Hiatal herniaPAST SURGICAL HISTORYNo date: CHOLECYSTECTOMY HX02/04/2017: EGD W/O BRSH SPECIMEN [id number]: LAP UMBILICAL HERNIA REPAIR11/10/2012: PICC LINE INSERT/CONSULT Comment:06/1999: TOTAL HIP REPLACEMENT Left07/2013: TOTAL HIP REPLACEMENT RightCurrent Outpatient Prescriptions:sucralfate (CARAFATE) 1 gram tablet Take 1 g by mouth four times daily. Disp:Rfl:oxybutynin (DITROPAN) 5 mg tablet Take 5 mg by mouth twice daily. Disp: Rfl:ALBUTEROL SULFATE (VENTOLIN INHALATION) Inhale as instructed as needed. Disp:Rfl:polyethylene glycol 3350 (MIRALAX) 17 gram/dose powder Take by mouth asneeded. Disp: Rfl:warfarin (COUMADIN) 1 mg tablet Take 1 mg by mouth once daily. One tab 6 daysper week with one 3mg tab for total of 4mg Disp: Rfl: 0fluticasone-salmeterol (ADVAIR DISKUS) 100-50 mcg/dose DsDv Inhale asinstructed once daily. Disp: Rfl: 0esomeprazole mag trihydrate(NEXIUM 40 MG CAP) One tablet twice daily. Disp:Rfl: 0ENOXAPARIN SODIUM (LOVENOX SUBCUTANEOUS) Inject subcutaneously twice daily.Disp: Rfl:gabapentin (NEURONTIN) 100 mg capsule Take 100 mg by mouth three times daily.Disp: Rfl:Ferrous Sulfate 325 mg (65 mg iron) CpER Take 1 tablet by mouth twice daily.(Patient not taking: Reported on 03/08/2017) Disp: 100 capsule Rfl: 0acetaminophen-HYDROcodone (VICODIN) 5-500 mg tablet Take 1-2 tablets by mouthevery 6 hours as needed for Pain. Disp: Rfl: 0warfarin 3 mg tablet In combination with 1 mg for total dose of 4mg 6 daysweekly. 3mg dose once per week. Disp: 60 tablet Rfl: 3albuterol 90 mcg/Actuation INHALATION Aero Inhale one(1) - two(2) puffs four(4)times a day as needed for wheezing and shortness of breath. Disp: Rfl: 0No current facility-administered medications for this visit.ALLERGIESAllergen Reactions- Latex Rash- Oxycodone RashSocial History Marital status: Spouse name: Years of education: Number of children:Social History Main Topics Smoking status: Never Smoker Smokeless status: Never Used Alcohol use: No Drug use: NoFAMILY HISTORY (grandparents, parents, brothers, sisters, aunts, or uncles)Liver Problems: NoUlcerative Colitis: NoCrohn's Disease: NoColon Cancer: NoColon Polyps: NoIBS: NoCeliac disease: NoBleeding Disorders: NoGI SPECIFIC REVIEW OF SYMPTOMSDifficulty swallowing / foods sticking in throat: noHeartburn: noHoarseness: noChronic cough: noRegurgitation: noChest pain: noFilling up quickly at meals:yesLoss of appetite: yesNausea: noVomiting: noAbdominal pain: yesRecent change in bowel movements: yesBloody or black, bowel movements: yesConstipation: yesDiarrhea: yesLoss of control of bowel movements: yesNight sweats: noFever: noChills: noThought or memory problems: noFluid in abdomen (ascites): noProminent leg swelling: yesVomiting blood: noRecent change in weight: Yes, lost 30 lbsREVIEW OF SYSTEMSEyesNegative for vision changes, diplopia or epiphora.Ears, Mouth, nose, throat:No problemsCardiovascular: No ProblemsRespiratory: Negative for cough, wheezing and shortness of breathGastrointestinal : See HPIGenitourinary: NegativeMusuloskeletal: Denies significant problemsIntegumentary: no rashes, lesions, or jaundiceNeurological: No history of neurologic problemsEndocrine: Negative for cold or heat intolerance, polyuria, polydipsia andgoiter.Psychiatric: Cooperative and agreeableAllergic/ Immunologic: NegativeAll others negativePAST MEDICAL HISTORYColon polyps: noColon cancer: noOther cancer: noRadiation / Chemotherapy: noCrohn's disease / Ulcerative colitis: noHigh cholesterol or triglycerides: noUlcers: noGallstones: noHepatitis / Jaundice: noHeart Disease: noLung Disease: noLiver problems: noThyroid disease: noKidney stones: noPancreatitis: noDiabetes: noArthritis: noRheumatic fever: noGastrointestinal bleeding: yesDepression or other mental illness: noOther personal illness:PHYSICAL EXAMINATIONBP 135/70 Pulse 75 Temp (Src) 97.3 (Oral) Ht 5' 4ANDquot; (1.63m) Wt 203lb 3.2 oz (92.2kg) SpO2 98% BMI 34.86 kg/(m2).General Appearance: Well appearing, alert, in no acute distress, well-hydrated,well nourished.Eyes: PERRLA, conjunctiva and sclera normalOropharynx: Moist mucous membranesLungs:CTABHeart: RRR.Abdomen: Soft, NT, NDRectal exam: Deferred.Extremities: No edemaSkin: No rashesNeuro:Oriented x 3RECENT LABSCBC:WBC (k/uL)Date Value11/18/2012 6.1703/ 6.47Hematocrit (%)Date Value11/18/2012 28.7 (L)MCV (fL)Date Value11/18/2012 72.3 (L)Platelet Count (k/uL)Date Value11/18/2012 398Lymph% (%)Date Value11/09/2012 17.0Comprehensive Metabolic Panel:Glucose (mg/dL)Date Value11/14/2012 89BUN (mg/dL)Date Value11/14/2012 5 (L)Creatinine (mg/dL)Date Value11/14/2012 0.66 (L)Sodium (mmol/L)Date Value11/14/2012 139Potassium (mmol/L)Date Value11/14/2012 3.8Chloride (mmol/L)Date Value11/14/2012 102CO2 (mmol/L)Date Value11/14/2012 29Protein, Total (g/dL)Date Value11/05/2012 5.3 (L)Albumin (g/dL)Date Value11/05/2012 3.2 (L)Calcium (mg/dL)Date Value11/14/2012 8.4 (L)Alkaline Phosphatase (U/L)Date Value11/05/2012 60Bilirubin, Total (mg/dL)Date Value11/05/2012 1.1AST (U/L)Date Value11/05/2012 18ALT (U/L)Date Value11/05/2012 15AssessmentIMPRESSIONMsJani Sweeney is a 71 year old year old female who presents with episodicabdominal pain - she is describing obstructive type symptoms (crampy abdominalpain with sold food associated with visible abdominal distension + points tothe area of abdomen where she feels it). However, response to PPI + sucralfateis atypical.She does have evidence of ineffective esophageal motility on manometry but Batablet during ba swallow passed without difficulty which would make it unlikelythat it is the cause of her symptoms.PLAN1. Obtain CT enterography to r/o stricture/obstruction2. Start Buspirone 10 mg TID for ineffective esophageal motility to see if itis contributing to patients symptoms.Plan is to follow up locally after testing is done.Meena Betancourt MDJuly 201612:55 PM I saw and evaluated the patient. I reviewed the History, Exam, and Plan asdocumented by the resident/fellow.The following reflects my findings:Attacks of sharp upper abdominal and back pain within minutes of a meal lasting1-2 hours and resulting in trips to the ER where relief occurs after morphineand exam and tests always normal. There is no vomiting, regurgitation or changein vital signs, Eating smaller meals or sotf foods prevent pain and so doessucralfate,She has no dysphagia but esophageal motility obtained showing ineffectivemotility.Reviewe d recent barium swallow: half of stomach is in the chest, shortesophagus and patent GE junction.In the past, cholecystectomy many years ago because of chronic abdominal pain(no stones) and appendectomy she cannot recall for what.Imp,Attacks of postprandial pain unrelated to hiatal hernia, Advised her to takesmall meals, reassured and urged not to consider hiatal hernia repair assymptoms do not constitute an indication for it and repair would be difficultwihtout esophageal lengthening procedure (Juanita).Bravo Daniel MD,TASHA,UZMAefsan luis obispo general hospitaling Provider: STEPHANIE SMITH [[id number]]Allergies As of Date: 03/08/2017 Noted Allergy ReactionLATEX 03/08/2017 2 - RashOXYCODONE 02/26/2013 2 - RashDate Reviewed: 03/08/2017Reviewed by: Jerrica Mo LPN - Fully AssessedReason for Visit: New Patient [172] Cmt: Esophageal DysmotilityPrimary Visit Diagnosis:Screening for nephropathy [Z13.89] Other Visit Diagnoses:Abdominal pain, unspecified location [R10.9] Hiatal hernia [K44.9]Order(s):CREATININE BLD [SQCRET] Order #: [id number] FUTURE CT ABDOMEN W IVCON [[id number]] Order #: [id number] FUTURE iv contrast (radiology procedure)CT ABD W -Inject, intravenously, once for 1 dose.No IV access, insert saline lock prior to the beginning of sedation, infusion, injection of imaging exam. Discontinue saline lock post exam. If Pt. has a central line or IVAD, may access for administration according to line specific nursing protocol. Once exam is complete flush line and de-access according to line specific nursing protocol in the CT contrast administration guidelines link.Disp: 1 EachRfl: 0 enteric contrast (radiology procedure)For CT ABD W IVCON order Administer, As Directed One Time Only, via Oral, Rectal, both Oral and Rectal, Enteric Tube, Stoma or Indwelling Catheter, Enteric Contrast as designated per enteric contrast guidelinesDisp: 1 EachRfl: 0 busPIRone (BUSPAR) 10 mg tabletTake 1 tablet by mouth three times daily.Disp: 90 tabletRfl: 5Prescriptions as of 03/08/2017 Sig: SUCRALFATE 1 GRAM TABLET Take 1 g by mouth four times * OXYBUTYNIN CHLORIDE 5 MG TABL* Take 5 mg by mouth twice cathi* VENTOLIN INHALATION Inhale as instructed as need* POLYETHYLENE GLYCOL 3350 17 G* Take by mouth as needed. WARFARIN 1 MG TABLET Take 1 mg by mouth once daily* FLUTICASONE 100 MCG-SALMETERO* Inhale as instructed once da* NEXIUM 40 MG CAPSULE,DELAYED * One tablet twice daily. IV CONTRAST (RADIOLOGY PROCED* CT ABD W -Inject, intravenous* ENTERIC CONTRAST (RADIOLOGY P* For CT ABD W IVCON order Admi* BUSPIRONE 10 MG TABLET Take 1 tablet by mouth three * LOVENOX SUBCUTANEOUS Inject subcutaneously twice * GABAPENTIN 100 MG CAPSULE Take 100 mg by mouth three ti* FERROUS SULFATE ER 325 MG (65* Take 1 tablet by mouth twice * Patient not taking: Reported on 03/08/2017 HYDROCODONE 5 MG-ACETAMINOPHE* Take 1-2 tablets by mouth gadiel* WARFARIN 3 MG TABLET In combination with 1 mg for * ALBUTEROL 90 MCG/ACTUATION AE* Inhale one(1) - two(2) puffs *Medication notes this encounter WARFARIN 1 MG TABLET >> Jerrica Csoma MICROSCOPIST 03/08/2017 12:49 PM >> CSOMA, JERRICA MICROSCOPIST [facility] Mar 08, 2017 12:49 PM Dose varies LOVENOX SUBCUTANEOUS >> Jerrica Csoma MICROSCOPIST 03/08/2017 12:47 PM >> CSOMA, JERRICA MICROSCOPIST [facility] Mar 08, 2017 12:47 PM Patient not taking GABAPENTIN 100 MG CAPSULE >> Jerrica Csoma MICROSCOPIST 03/08/2017 12:48 PM >> CSOMA, JERRICA MICROSCOPIST [facility] Mar 08, 2017 12:48 PM Patient not taking HYDROCODONE 5 MG-ACETAMINOPHEN 500 MG TABLET >> Jerrica Csoma MICROSCOPIST 03/08/2017 12:46 PM >> CSOMA, JERRICA MICROSCOPIST [facility] Mar 08, 2017 12:46 PM Patient not taking WARFARIN 3 MG TABLET >> Jerrica Csoma MICROSCOPIST 03/08/2017 12:49 PM >> CSOMA, JERRICA MICROSCOPIST [facility] Mar 08, 2017 12:49 PM Patient not taking ALBUTEROL 90 MCG/ACTUATION AEROSOL INHALER >> Jerrica Csoma MICROSCOPIST 03/08/2017 12:47 PM >> CSOMA, JERRICA MICROSCOPIST [facility] Mar 08, 2017 12:47 PM Patient not takingProblem List As Of Date 03/08/2017 Noted Resolved IRON DEFIC ANEMIA NOS [D50.9] INVALID FOR* 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 Discontinue saline lock post exam. If Pt. has a central line or IVAD, may access for administration according to line specific nursing protocol. Once exam is complete flush line and de-access according to line specific nursing protocol in the CT contrast administration guidelines link. ENTERIC CONTRAST (RADIOLOGY PROCEDUR* 1 Ea* 0 03/08/2017 03/09/2017 Class: In Office Sig: For CT ABD W IVCON order Administer, As Directed One Time Only, via Oral, Rectal, both Oral and Rectal, Enteric Tube, Stoma or Indwelling Catheter, Enteric Contrast as designated per enteric contrast guidelines BUSPIRONE 10 MG TABLET 90 t* 5 03/08/2017 Route: ORAL Sig: Take 1 tablet by mouth three times daily.Follow-up and Disposition History RecordedEncounter Number: [id number] Status:Closed by BRAVO DANIEL MD on 03/08/17 Normal [facility] PROGRESSon 03-08-2017 PROGRESS HNO ID: [id number] thor: Bravo Hensley: (none)Author Type: PhysicianType: Progress NotesFiled: 03/08/2017 2:25 PMNote Text:DEPARTMENT OF GASTROENTEROLOGY - NEW PATIENT/CONSULTREASON FOR VISITSujam Sweeney is a 71 year old female who is scheduled at the request of Stephanie Smith for New Patient (Esophageal Dysmotility). My finalrecommendations will be communicated back to the requesting physician bythe way of the shared medical record, fax, or via US MailHISTORY OF PRESENT ILLNESSSindy Sweeney is a 71 year old female who presents today for anevaluation of dysphagia.Reports that her symptoms started December/January 2017 when she started havingepigastric pain + chest pain with eating food. [facility]. She wastold she had a hiatal hernia and was asked to get that evaluated further.Underwent EGD 02/06/17 which was unremarkable except for hiatal hernia +mild distal esophagitis. She then underwent a manometry which showedfindings consistent with ineffective esophageal motility.Reports that her symptoms are episodic, comes as an attack and she isasymptomatic in between. Describes the symptoms as a spasm + swelling upof her abdomen, she feels improvement with rubbing her abdomen. Alwayscomes on with food, never without - mostly to solid food. She has gone tothe ER twice. She has stopped eating large portions, she has switchedmostly to shakes/liquids + soft/pureed foods like mashed potatoes whichhas helped. She has also been started on Sucralfate which she also feelshas helped significantly. She is also on Nexium 40 mg daily which shefeels also helps.+ weight loss - 35lb over 2 months. No blood in stool. No fever/chills. Nonausea/vomiting. No h/o crohn's disease.Ba swallow 01/08/2017No stricture. Moderate hiatal hernia. Pt ingested a 12 mm tablet of bariumwithout any difficulty.Past surgical history is notable for remote cholecystectomy andappendectomy.Of note, she had an episode of gonadal vein thrombosis in 2012. CT Abdo w/contrast from that time:NONSPECIFIC RIGHT EXTRAPERITONEAL AND NOW MILD RIGHT LOWER QUADRANTINTRAPERITONEAL INFLAMMATORY CHANGES AND FREE FLUID OF UNCERTAINETIOLOGY. THESE ARE POSSIBLY SECONDARY TO RIGHT GONADAL VEIN THROMBOSIS.SUGGEST A TRANSVAGINAL ULTRASOUND TO ACCESS OVARIAN PATHOLOGY.PAST MEDICAL HISTORYDiagnosis Date- Abdominal pain 01/2017- Anemia- Dysphagia 01/2017- Hiatal herniaPAST SURGICAL HISTORYNo date: CHOLECYSTECTOMY HX02/04/2017: EGD W/O [facility] SPECIMEN W/[id number]: LAP UMBILICAL HERNIA REPAIR11/10/2012: PICC LINE INSERT/CONSULT Comment:06/1999: TOTAL HIP REPLACEMENT Left07/2013: TOTAL HIP REPLACEMENT RightCurrent Outpatient Prescriptions:sucralfate (CARAFATE) 1 gram tablet Take 1 g by mouth four times daily.Disp: Rfl:oxybutynin (DITROPAN) 5 mg tablet Take 5 mg by mouth twice daily. Disp:Rfl:ALBUTEROL SULFATE (VENTOLIN INHALATION) Inhale as instructed as needed.Disp: Rfl:polyethylene glycol 3350 (MIRALAX) 17 gram/dose powder Take by mouth asneeded. Disp: Rfl:warfarin (COUMADIN) 1 mg tablet Take 1 mg by mouth once daily. One tab 6days per week with one 3mg tab for total of 4mg Disp: Rfl: 0fluticasone-salmeterol (ADVAIR DISKUS) 100-50 mcg/dose DsDv Inhale asinstructed once daily. Disp: Rfl: 0esomeprazole mag trihydrate(NEXIUM 40 MG CAP) One tablet twice daily.Disp: Rfl: 0ENOXAPARIN SODIUM (LOVENOX SUBCUTANEOUS) Inject subcutaneously twicedaily. Disp: Rfl:gabapentin (NEURONTIN) 100 mg capsule Take 100 mg by mouth three timesdaily. Disp: Rfl:Ferrous Sulfate 325 mg (65 mg iron) CpER Take 1 tablet by mouth twicedaily. (Patient not taking: Reported on 03/08/2017) Disp: 100 capsule Rfl:0acetaminophen-HYDROcod one (VICODIN) 5-500 mg tablet Take 1-2 tablets bymouth every 6 hours as needed for Pain. Disp: Rfl: 0warfarin 3 mg tablet In combination with 1 mg for total dose of 4mg 6 daysweekly. 3mg dose once per week. Disp: 60 tablet Rfl: 3albuterol 90 mcg/Actuation INHALATION Aero Inhale one(1) - two(2) puffsfour(4) times a day as needed for wheezing and shortness of breath. Disp:Rfl: 0No current facility-administered medications for this visit.ALLERGIESAllergen Reactions- Latex Rash- Oxycodone RashSocial History Marital status: Spouse name: Years of education: Number of children:Social History Main Topics Smoking status: Never Smoker Smokeless status: Never Used Alcohol use: No Drug use: NoFAMILY HISTORY (grandparents, parents, brothers, sisters, aunts, oruncles)Liver Problems: NoUlcerative Colitis: NoCrohn's Disease: NoColon Cancer: NoColon Polyps: NoIBS: NoCeliac disease: NoBleeding Disorders: NoGI SPECIFIC REVIEW OF SYMPTOMSDifficulty swallowing / foods sticking in throat: noHeartburn: noHoarseness: noChronic cough: noRegurgitation: noChest pain: noFilling up quickly at meals:yesLoss of appetite: yesNausea: noVomiting: noAbdominal pain: yesRecent change in bowel movements: yesBloody or black, bowel movements: yesConstipation: yesDiarrhea: yesLoss of control of bowel movements: yesNight sweats: noFever: noChills: noThought or memory problems: noFluid in abdomen (ascites): noProminent leg swelling: yesVomiting blood: noRecent change in weight: Yes, lost 30 lbsREVIEW OF SYSTEMSEyesNegative for vision changes, diplopia or epiphora.Ears, Mouth, nose, throat:No problemsCardiovascular: No ProblemsRespiratory: Negative for cough, wheezing and shortness of breathGastrointestinal : See HPIGenitourinary: NegativeMusuloskeletal: Denies significant problemsIntegumentary: no rashes, lesions, or jaundiceNeurological: No history of neurologic problemsEndocrine: Negative for cold or heat intolerance, polyuria, polydipsia andgoiter.Psychiatric: Cooperative and agreeableAllergic/ Immunologic: NegativeAll others negativePAST MEDICAL HISTORYColon polyps: noColon cancer: noOther cancer: noRadiation / Chemotherapy: noCrohn's disease / Ulcerative colitis: noHigh cholesterol or triglycerides: noUlcers: noGallstones: noHepatitis / Jaundice: noHeart Disease: noLung Disease: noLiver problems: noThyroid disease: noKidney stones: noPancreatitis: noDiabetes: noArthritis: noRheumatic fever: noGastrointestinal bleeding: yesDepression or other mental illness: noOther personal illness:PHYSICAL EXAMINATIONBP 135/70 Pulse 75 Temp (Src) 97.3 (Oral) Ht 5' 4 (1.63m) Wt 203lb 3.2 oz (92.2kg) SpO2 98% BMI 34.86 kg/(m2).General Appearance: Well appearing, alert, in no acute distress,well-hydrated, well nourished.Eyes: PERRLA, conjunctiva and sclera normalOropharynx: Moist mucous membranesLungs:CTABHeart: RRR.Abdomen: Soft, NT, NDRectal exam: Deferred.Extremities: No edemaSkin: No rashesNeuro:Oriented x 3RECENT LABSCBC:WBC (k/uL)Date Value11/18/2012 6.1703/ 6.47Hematocrit (%)Date Value11/18/2012 28.7 (L)MCV (fL)Date Value11/18/2012 72.3 (L)Platelet Count (k/uL)Date Value11/18/2012 398Lymph% (%)Date Value11/09/2012 17.0Comprehensive Metabolic Panel:Glucose (mg/dL)Date Value11/14/2012 89BUN (mg/dL)Date Value11/14/2012 5 (L)Creatinine (mg/dL)Date Value11/14/2012 0.66 (L)Sodium (mmol/L)Date Value11/14/2012 139Potassium (mmol/L)Date Value11/14/2012 3.8Chloride (mmol/L)Date Value11/14/2012 102CO2 (mmol/L)Date Value11/14/2012 29Protein, Total (g/dL)Date Value11/05/2012 5.3 (L)Albumin (g/dL)Date Value11/05/2012 3.2 (L)Calcium (mg/dL)Date Value11/14/2012 8.4 (L)Alkaline Phosphatase (U/L)Date Value11/05/2012 60Bilirubin, Total (mg/dL)Date Value11/05/2012 1.1AST (U/L)Date Value11/05/2012 18ALT (U/L)Date Value11/05/2012 15AssessmentIMPRESSIONMsJani Sweeney is a 71 year old year old female who presents with episodicabdominal pain - she is describing obstructive type symptoms (crampyabdominal pain with sold food associated with visible abdominal distension+ points to the area of abdomen where she feels it). However, response toPPI + sucralfate is atypical.She does have evidence of ineffective esophageal motility on manometry butBa tablet during ba swallow passed without difficulty which would make itunlikely that it is the cause of her symptoms.PLAN1. Obtain CT enterography to r/o stricture/obstruction2. Start Buspirone 10 mg TID for ineffective esophageal motility to see ifit is contributing to patients symptoms.Plan is to follow up locally after testing is done.Randy Judge 201612:55 PM I saw and evaluated the patient. I reviewed the History, Exam, and Alireza documented by the resident/fellow.The following reflects my findings:Attacks of sharp upper abdominal and back pain within minutes of a meallasting 1-2 hours and resulting in trips to the ER where relief occursafter morphine and exam and tests always normal. 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, shortesophagus and patent GE junction.In the past, cholecystectomy many years ago because of chronic abdominalpain (no stones) and appendectomy she cannot recall for what.Imp,Attacks of postprandial pain unrelated to hiatal hernia, Advised her totake small meals, reassured and urged not to consider hiatal hernia repairas symptoms do not constitute an indication for it and repair would bedifficult wihtout esophageal lengthening procedure (Juanita).Bravo Daniel MD,MACP,MACG Normal [facility] Microbiology: Culture, Urine on 02-06-2017 GE use only - for LinkLogic import when terms are not otherwise specified Trimethoprim/Sulfametho $ <=20 S Invalid Interpretation Code [facility] Work Phone: Microbiology: (P) Culture, U rineon 02-05-2017 GE use only - for LinkLogic import when terms are not otherwise specified . Invalid Interpretation Code [facility] Work Phone: Vital Signs Date Time Vital Sign Value Performing Clinician Faci vincenzoy 04-28-2025 10:57-0400 Body height 165.[address] Litzy Vazquez MD Work Phone: [facility] 04-28-2025 10:57-0400 Body mass index (BMI) [Ratio] 31.9 kg/m2 Dr. Litzy Vazquez MD Work Phone: [facility] 04-28-2025 10:57-0400 Body temperature 97.3 [degF] Dr. Litzy Vazquez MD Work Phone: [facility] 04-28-2025 10:57-0400 Body weight 87.[address] Litzy Vazquez MD Work Phone: [facility] 04-28-2025 10:57-0400 Diastolic blood pressure 78 mm[Hg] Dr. Litzy Vazquez MD Work Phone: [facility] 04-28-2025 10:57-0400 Heart rate 74 /min Dr. Litzy Vazquez MD Work Phone: [facility] 04-28-2025 10:57-0400 Systolic blood pressure 118 mm[Hg] Dr. iLtzy Vazquez MD Work Phone: [facility] 03-31-2025 13:29-0400 Body height 165.[address] Litzy Vazquez MD Work Phone: 4(097)395-746991 [address] 03-31-2025 13:29-0400 Body mass index (BMI) [Ratio] 32.4 kg/m2 Dr. Litzy Vazquez MD Work Phone: 9(621)497-423391 [address] 03-31-2025 13:29-0400 Body temperature 98.3 [degF] Dr. Litzy Vazquez MD Work Phone: 5(979)856-062467 [place] [address] 03-31-2025 13:29-0400 Body weight 88.[address] Litzy Vazquez MD Work Phone: 7(488)210-692167 [place] [address] 03-31-2025 13:29-0400 Diastolic blood pressure 71 mm[Hg] Dr. Litzy Vazquez MD Work Phone: 3(962)618-821381 [place] [address] 03-31-2025 13:29-0400 Heart rate 83 /min Dr. Litzy Vazquez MD Work Phone: 2(526)064-555191 [address] 03-31-2025 13:29-0400 Systolic blood pressure 122 mm[Hg] Dr. Litzy Vazquez MD Work Phone: 6(741)003-392681 [place] [address] 02-24-2025 10:22-0400 Body height 165.[address] Litzy Vazquez MD Work Phone: [facility] 02-24-2025 10:16-0400 Body mass index (BMI) [Ratio] 33.7 kg/m2 Dr. Litzy Vazquez MD Work Phone: 4(637)296-980091 [address] 02-24-2025 10:16-0400 Body weight 92.[address] Litzy Vazquez MD Work Phone: 0(419)540-908591 [address] 02-24-2025 10:16-0400 Diastolic blood pressure 82 mm[Hg] Dr. Litzy Vazquez MD Work Phone: [facility] 02-24-2025 10:16-0400 Systolic blood pressure 140 mm[Hg] Dr. Litzy Vazquez MD Work Phone: [facility] 12-02-2024 12:59-0400 Body mass index (BMI) [Ratio] 32.4 kg/m2 Dr. Litzy Vazquez MD Work Phone: [facility] 12-02-2024 12:59-0400 Body weight 88.[address] Litzy Vazquez MD Work Phone: 7(011)213-354281 [place] [address] 12-02-2024 12:59-0400 Diastolic blood pressure 82 mm[Hg] Dr. Litzy Vazquez MD Work Phone: 5(261)641-329281 [place] [address] 12-02-2024 12:59-0400 Systolic blood pressure 136 mm[Hg] Dr. Litzy Vazquez MD Work Phone: 4(745)120-889881 [place] [address] 09-21-2024 11:10-0500 Body temperature 98.4 [degF] Dr. Litzy Vazquez MD Work Phone: 4(238)455-443691 [address] 09-21-2024 11:10-0500 Diastolic blood pressure 63 mm[Hg] Dr. Litzy Vazquez MD Work Phone: 4(577)599-094181 [place] [address] 09-21-2024 11:10-0500 Heart rate 101 /min Dr. Litzy Vazquez MD Work Phone: [facility] 09-21-2024 11:10-0500 Respiratory rate 20 /min Dr. Litzy Vazquez MD Work Phone: 9(054)466-124681 [place] [address] 09-21-2024 11:10-0500 SaO2% (BldA) [Mass fraction] 100 % Dr. Litzy Vazquez MD Work Phone: [facility] 09-21-2024 11:10-0500 Systolic blood pressure 113 mm[Hg] Dr. Litzy Vazquez MD Work Phone: 1(317)741-793281 [place] [address] 09-21-2024 07:13-0500 Body mass index (BMI) [Ratio] 35.6 kg/m2 Dr. Litzy Vazquez MD Work Phone: [facility] 09-21-2024 07:13-0500 Body weight 97.[address] Litzy Vazquez MD Work Phone: 8(833)977-230881 [place] [address] 09-21-2024 07:10-0500 Body height 165.[address] Litzy Vazquez MD Work Phone: 0(772)565-606281 [place] [address] 07-29-2024 11:11-0500 Body mass index (BMI) [Ratio] 33.3 kg/m2 Dr. Litzy Vazquez MD Work Phone: 9(265)803-417191 [address] 07-29-2024 11:11-0500 Body weight 90.[address] Litzy Vazquez MD Work Phone: 6(235)668-089191 [address] 07-29-2024 11:11-0500 Diastolic blood pressure 78 mm[Hg] Dr. Litzy Vazquez MD Work Phone: 0(965)740-545991 [address] 07-29-2024 11:11-0500 Systolic blood pressure 134 mm[Hg] Dr. Litzy Vazquez MD Work Phone: 9(224)647-327591 [address] 07-03-2023 09:23-0500 Body height 165.[address] True Vazquez Work Phone: 7(897)597-860581 [place] [address] 07-03-2023 09:22-0500 Body mass index (BMI) [Ratio] 33.6 kg/m2 Dr. True Vazquez Work Phone: [facility] 07-03-2023 09:22-0500 Body weight 91.[address] True Vazquez Work Phone: 3(436)526-072181 [place] [address] 07-03-2023 09:22-0500 Diastolic blood pressure 70 mm[Hg] Dr. True Vazquez Work Phone: 8(843)004-969181 [place] [address] 07-03-2023 09:22-0500 Systolic blood pressure 122 mm[Hg] Dr. True Vazquez Work Phone: [facility] 01-10-2023 11:38-0400 Body height 165.[address] True Vazquez Work Phone: [facility] 01-10-2023 11:28-0400 Body mass index (BMI) [Ratio] 33.6 kg/m2 Dr. True Vazquez Work Phone: [facility] 01-10-2023 11:28-0400 Body weight 91.[address] True Vazquez Work Phone: [facility] 01-10-2023 11:28-0400 Diastolic blood pressure 82 mm[Hg] Dr. True Vazquez Work Phone: [facility] 01-10-2023 11:28-0400 Systolic blood pressure 134 mm[Hg] Dr. True Vazquez Work Phone: [facility] 10-11-2022 11:13-0500 Body height 165.[address] True Vazquez Work Phone: [facility] 10-11-2022 11:05-0500 Body mass index (BMI) [Ratio] 33.5 kg/m2 Dr. True Vazquez Work Phone: [facility] 10-11-2022 11:05-0500 Body weight 91.[address] True Vazquez Work Phone: [facility] 10-11-2022 11:05-0500 Diastolic blood pressure 82 mm[Hg] Dr. True Vazquez Work Phone: [facility] 10-11-2022 11:05-0500 Systolic blood pressure 146 mm[Hg] Dr. True Vazquez Work Phone: [facility] 06-06-2022 10:32-0400 Body height 165.[address] True Vazquez Work Phone: [facility] Work Phone: 06-06-2022 10:21-0400 Body mass index (BMI) [Ratio] 31.9 kg/m2 Dr. True Vazquze Work Phone: [facility] Work Phone: 06-06-2022 10:21-0400 Body weight 87.[address] True Vazquez Work Phone: [facility] Work Phone: 06-06-2022 10:21-0400 Diastolic blood pressure 72 mm[Hg] Dr. True Vazquez Work Phone: [facility] Work Phone: 06-06-2022 10:21-0400 Systolic blood pressure 134 mm[Hg] Dr. True Vazquez Work Phone: [facility] Work Phone: 05-02-2022 03:25-0400 Diastolic blood pressure 78 mm[Hg] Dr. True Vazquez Work Phone: [facility] Work Phone: 05-02-2022 03:25-0400 Heart rate 83 /min Dr. True Vazquez Work Phone: [facility] Work Phone: 05-02-2022 03:25-0400 Respiratory rate 18 /min Dr. True Vazquez Work Phone: [facility] Work Phone: 05-02-2022 03:25-0400 SaO2% (BldA) [Mass fraction] 98 % Dr. True Vazquez Work Phone: [facility] Work Phone: 05-02-2022 03:25-0400 Systolic blood pressure 144 mm[Hg] Dr. True Vazquez Work Phone: [facility] Work Phone: 05-01-2022 23:08-0400 Body height 165.[address] True Vazquez Work Phone: [facility] Work Phone: 05-01-2022 23:08-0400 Body mass index (BMI) [Ratio] 33.2 kg/m2 Dr. True Vazquez Work Phone: [facility] Work Phone: 05-01-2022 23:08-0400 Body temperature 97.7 [degF] Dr. True Vazquez Work Phone: [facility] Work Phone: 05-01-2022 23:08-0400 Body weight 90.[address] True Vazquez Work Phone: [facility] Work Phone: 01-30-2022 11:24-0400 Body height 162.[address] True Vazquez Work Phone: [facility] Work Phone: 01-30-2022 11:24-0400 Body mass index (BMI) [Ratio] 33.3 kg/m2 Dr. True Vazquez Work Phone: [facility] Work Phone: 01-30-2022 11:24-0400 Body weight 88.[address] True Vazquez Work Phone: [facility] Work Phone: 01-30-2022 11:24-0400 Diastolic blood pressure 74 mm[Hg] Dr. True Vazquez Work Phone: [facility] Work Phone: 01-30-2022 11:24-0400 Systolic blood pressure 126 mm[Hg] Dr. True Vazquez Work Phone: [facility] Work Phone: 11-02-2021 11:43-0400 Body mass index (BMI) [Ratio] 34.4 kg/m2 Dr. True Vazquez Work Phone: [facility] Work Phone: 11-02-2021 11:43-0400 Body weight 91.[address] True Vazquez Work Phone: [facility] Work Phone: 11-02-2021 11:43-0400 Diastolic blood pressure 78 mm[Hg] Dr. True Vazquez Work Phone: [facility] Work Phone: 11-02-2021 11:43-0400 Systolic blood pressure 120 mm[Hg] Dr. True Vazquez Work Phone: [facility] Work Phone: 04-11-2017 13:07-0400 BMI (Body Mass Index) 34.59 kg/m2 Stephanie Smith MD [facility] Work Phone: 04-11-2017 13:07-0400 Body Temperature 97.9 [degF] Stephanie Smith MD [facility] Work Phone: 04-11-2017 13:07-0400 BP Diastolic 73 mm[Hg] Stephanie Smith MD [facility] Work Phone: 04-11-2017 13:07-0400 BP Systolic 117 mm[Hg] Stephanie Smith MD [facility] Work Phone: 04-11-2017 13:07-0400 Height 160.02 cm Stephanie Smith MD [facility] Work Phone: 04-11-2017 13:07-0400 Pulse (Heart Rate) 60 /min Stephanie Smith MD [facility] Work Phone: 04-11-2017 13:07-0400 Respiratory Rate 18 /min Stephanie Smith MD [facility] Work Phone: 04-11-2017 13:07-0400 Weight 88.59 kg Stephanie Smith MD [facility] Work Phone: Encounters Encounter Date Encounter Type Care Provider Facility Start: 04-28-2025 End: 04-28-[address] Kiah Guajardo MD -[facility] Work Phone: Start: 04-28-2025 End: 04-28-[address] Litzy Vazquez MD Work Phone: -[facility] Start: 03-31-2025 End: 03-31-[address] Kiah Guajardo MD -[facility] Work Phone: Start: 03-31-2025 End: 03-31-[address] Litzy Vazquez MD Work Phone: -[facility] Start: 03-02-2025 End: 03-02-[address] Litzy Vazquez MD Work Phone: -[facility] Start: 03-02-2025 End: 03-02-[address] Angelo Arias MD -[facility] Work Phone: Start: 03-02-2025 End: 03-02-2025 ambulatory Angelo Arias Facility:[facility] Start: 02-27-2025 End: 02-27-[address] Litzy Vazquez MD Work Phone: -[facility] Start: 02-27-2025 End: 02-27-[address] Angelo Arias MD -[facility] Work Phone: Start: 02-27-2025 End: 02-27-2025 ambulatory Angelo Arias Facility:[facility] Start: 02-24-2025 End: 02-24-2025 Patient encounter procedure Lindsay KRUEGER -[facility] Work Phone: Start: 02-24-2025 End: 02-24-[address] Litzy Vazquez MD Work Phone: -[facility] Start: 02-17-2025 Non-patient / Non-visit Dr. Kiah Guajardo MD -[facility] Work Phone: Start: 12-10-2024 ambulatory Lindsay Rahman [employer] Facil ity:[facility] Start: 12-02-2024 End: 12-02-2024 Patient encounter procedure Lindsay Rahman [employer]-C -[facility] Work Phone: Start: 12-02-2024 End: 12-02-2024 ambulatory Lindsay Rahman [employer] Facility:[facility] Start: 10-21-2024 End: 10-21-[address] Litzy Vazquez MD Work Phone: [facility] Work Phone: Start: 10-21-2024 End: 10-21-[address] Litzy Vazquez MD -[facility] Work Phone: Start: 10-21-2024 End: 10-21-2024 ambulatory Litzy Vazquez Facility:[facility] Start: 10-08-2024 End: 10-08-[address] Litzy Vazquez MD -[facility]patient [facility] Work Phone: Start: 10-08-2024 End: 10-08-2024 ambulatory Litzy Vazquez Facility:[facility] Start: 09-21-2024 End: 09-21-2024 Emergency department patient visit Dr. Haseeb Rowe-[facility] -Emergency Department Work Phone: Start: 07-29-2024 End: 07-29-2024 Patient encounter procedure Lindsay Rahman [employer]-C -[facility] Work Phone: Start: 07-29-2024 End: 07-29-2024 ambulatory Litzy Vazquez Facility:[facility] Start: 06-12-2024 End: 06-12-2024 ambulatory Litzy Vazquez Facility:[facility] Start: 06-07-2024 End: 06-10-2024 ambulatory MUSTAPHA HUNT [facility] Start: 06-03-2024 End: 06-03-2024 ambulatory Litzy Vazquez Facility:[facility] Start: 08-09-2023 End: 08-09-[address] True Vazquez Work Phone: [facility] Work Phone: Start: 08-09-2023 End: 08-09-[address] True Vazquez Work Phone: [facility] Start: 07-03-2023 End: 07-03-[address] True Vazquez Work Phone: [facility] Work Phone: Start: 04-10-2023 End: 04-10-[address] True Vazquez Work Phone: [facility] Work Phone: Start: 04-10-2023 End: 04-10-[address] True Vazquez Work Phone: [facility] Start: 01-10-2023 End: 01-10-[address] True Vazquez Work Phone: [facility] Work Phone: Start: 01-01-2023 End: 01-01-[address] Ture Vazquez Work Phone: [facility] Start: 10-17-2022 End: 10-17-[address] True Vazquez Work Phone: [facility] Work Phone: Start: 10-17-2022 End: 10-17-[address] True Vazquez Work Phone: [facility] Start: 10-11-2022 End: 10-11-[address] True Vazquez Work Phone: [facility] Start: 10-04-2022 End: 10-04-[address] True Vazquez Work Phone: [facility] Work Phone: Start: 10-04-2022 End: 10-04-[address] True Vazquez Work Phone: [facility] Start: 10-03-2022 End: 10-03-[address] True Vazquez Work Phone: [facility] Start: 08-08-2022 End: 08-08-[address] True Vazquez Work Phone: [facility] Work Phone: Start: 08-08-2022 End: 08-08-[address] True Vazquez Work Phone: [facility] Start: 06-06-2022 End: 06-06-[address] True Vazquez Work Phone: [facility] Start: 05-01-2022 End: 05-02-2022 Emergency department patient visit Dr. True Vazquez Work Phone: [facility]-Emergency Department Start: 05-01-2022 End: 05-02-2022 Non-patient / Non-visit Dr. True Vazquez Work Phone: [facility] Start: 02-01-2022 End: 02-01-[address] True Vazquez Work Phone: [facility] Start: 01-30-2022 End: 01-30-[address] True Vazquez Work Phone: [facility] Start: 11-02-2021 End: 11-02-[address] True Vazquez Work Phone: [facility] Start: 03-13-2017 End: 03-15-2017 Ambulatory MEENA BETANCOURT [facility] Start: 03-13-2017 End: 03-21-2017 Ambulatory BRAVO DANIEL [facility] Start: 03-08-2017 End: 03-08-2017 Ambulatory MEENA (FEL) BETANCOURT [facility] Procedures Date Procedure Procedure Detail Performing Clinician Start: 10-21-[address] Darek Vazquez MD Work Phone: Start: 10-08-2024 Dual energy X-ray absorptiometry Dr. Litzy Vazquez MD Work Phone: Start: 10-08-2024 Screening mammography Steve Vazquez MD Work Phone: Start: 09-21-2024 SARS-CoV-2, Influenz a & RSV (PCR) Dr. Litzy Vazquez MD Work Phone: Start: 09-21-[address] Alonso Vazquez MD Work Phone: Start: 09-21-2024 X-ray of chest, PA a nd lateral views Dr. Litzy Vazquez MD Work Phone: Start: 04-10-2023 Bacteria identified in Urine by Culture Dr. True Vazquez Work Phone: Start: 04-10-[address] Alonso Vazquez Work Phone: Start: 10-17-2022 Radiologic examinati on of knee Dr. True Vazquez Work Phone: Start: 10-04-2022 Dual energy X-ray absorptiometry Dr. True Vazquez Work Phone: Start: 10-04-2022 Screening mammography Steve Vazquez Work Phone: Start: 05-02-2022 CT angiography of he ad and neck Dr. True Vazquez Work Phone: Start: 05-01-2022 Plain chest X-ray Dr. Aakash Vazquez Work Phone: Plan of Treatment Date Care Activity Detail Author Start: 04-11-2017 End: 04-11-2017 Appointment [facility] Work Phone: Patient Education [facility] Work Phone: Patient referral [facility] Work Phone: [facility] Immunizations Immunization Date Immunization Notes Care Provider Fa cility 05-07-2018 influenza, injectabl e, quadrivalent, preservative free Dr. True Vazquez Work Phone: [facility] 05-07-2018 influenza, seasonal, injectable Dr. True Vazquez Work Phone: [facility] 05-20-[address] True Vazquez Work Phone: [facility] 06-03-[address] True Vazquez Work Phone: [facility] 06-21-[address] Long Vazquez Work Phone: [facility] Work Phone: 06-21-2011 pneumococcal vaccine , unspecified formulation Dr. True Vazquez Work Phone: [facility] Payers Date Payer Category Payer Self-pay [id number] 2024 Unknown [id number] 2013 Medicare [id number] 1945 Unknown [id number] 2.16.8 [id number] Unknown [id number] 2.16.8 [id number] Unknown [id number] 2.16.8 [id number] Unknown [id number] 2.16.8 [id number] Unknown [id number] 2.16.8 [id number] Unknown [id number] 2.16.8 [id number] Unknown [id number] 2.16.8 [id number] Unknown [id number] 2.16.8 [id number] Unknown [id number] 2.16.8 [id number] Unknown [id number] 2.16.8 [id number] Unknown [id number] 2.16.8 [id number] Unknown [id number] 2.16.8 [id number] Unknown [id number] 2.16.8 [id number] Unknown [id number] 2.16.8 [id number] Social History Date Type Detail Facility Start: 01-30-2022 End: 07-03-2023 Tobacco smoking status NHIS Unknown if ever smoked [facility] Start: 02-01-2021 None [facility] Start: 02-01-2021 Homeless [facility] Start: 02-01-2021 Non-smoker [facility] Start: 1945 Sex Assigned At Female [facility] Start: 09-21-2024 Tobacco smoking stat us RUST Never smoked tobacco (finding) [facility] Start: 11-02-2024 Sex Female (finding) [facility] Mental Status Date Assessment Result Facility 05-01-2022 Cognitive function Level Of Cons ciousness Awake;Alert;Appropriate;Follow s Commands [facility] Work Phone: Clinical Notes 06-08-2024 to 02-24-2025 Note Date & Type Note Facility 02-24-2025 Evaluation note Diagnosis Onset Date Resolution Cystocele and rectocele with incomplete uterovaginal prolapse acute February 24, 2025 10:13am Pessary maintenance acute February 24, 2025 10:13am Nocturia acute March 31, 2 025 12:52pm Urge incontinence acute March 31, 2025 12:52pm Nocturia acute April 28, 2025 10:25am Urge incontinence acute 2024 10:25am [email or web address] Work Phone: 1(547) 554-170904-15-2025 Evaluation note* Diagnosis Onset Date Resolution Status Admit Date Cystocele and rectocele with incomplete uterovaginal prolapse acute December 02, 2024 12:57pm Pessary maintenance acute December 02, 2024 12:57pm [email or web address] Work Phone: 1(124) 646-947204-15-2025 Evaluation note* Diagnosis Onset Date Resolution Status Admit Date Cystocele and rectocele with incomplete uterovaginal prolapse acute December 02, 2024 12:57pm Pessary maintenance acute December 02, 2024 12:57pm Cystocele and rectocele with incomplete uterovaginal prolapse acute February 24, 2025 10:13am Pessary maintenance acute February 24, 2025 10:13am [facility] Work Phone: 1(789) 900-834704-15-2025 Evaluation note* Diagnosis Onset Date Resolution Status Admit Date Cystocele and rectocele with incomplete uterovaginal prolapse acute December 02, 2024 12:57pm Pessary maintenance acute December 02, 2024 12:57pm Cystocele and rectocele with incomplete uterovaginal prolapse acute February 24, 2025 1 0:13am Pessary maintenance acute February 24, 2025 10:13am Nocturia acute March 31, 2 025 12:52pm Urge incontinence acute March 31, 2025 12:52pm [facility] Work Phone: 1(104) 826-656903-04-2025 Radiology Diagnostic study note [facility] Imaging Services [address] [place] [address] Breast Complete Unilateral MR#: [id number] Acct: [id number] Name: SINDY SWEENEY Rep #: [id number] : 1945 F 79 From: Lily Mcneill MD PCP: Dr. Litzy Vazquez MD Status: REG CLI Study:Breast Complete Unilateral Date of Exam : 10/21/24 Exam# [id number] Ordering Dr: Aakash Vazquez MD PROCEDURE: DIAG MAMM W/CAD, UNILAT; BREAST COMPLETE UNILATERAL; LT BRST UNILAT BRUNO ADD ON REASON FOR EXAM: 79-year-old female presents for follow-up of the left breast finding seen on thescreening mammogramof 10/08/2024. no family history of breast cancer. TECHNIQUE: Left diagnostic digital breast tomosynthesis with 2D and 3D images. Computer aided detection. Also, targeted left breast ultrasound was performed. COMPARISON: 10/08/2024, 10/04/2022, 09/01/2020 FINDINGS: MAMMOGRAM: The breasts are heterogeneously dense which may obscure small masses. Follow-up examination performed of the left breast finding seen on the screening mammogram 10/08/2024. On the present examination, the asymmetry in the medial left breast at middle depth effaces and likely represents benign overlapping fibroglandular tissues. Otherwise,there are no suspicious findings in the left breast. ULTRASOUND: Ultrasound performed of the medial left breast demonstrates normal fibroglandular tissues. There are no suspicious masses or abnormal cystic elements. US/Breast Complete Unilateral IMPRESSION: There is no mammographic or sonographic evidence of malignancy in the left breast. BI-RADS 2: BENIGN. RECOMMEND ANNUAL MAMMOGRAPHIC SCREENING. Follow-up code: Routine Follow-up Reading Location: [id number] CC: Dr. Litzy Vazquez MD ~ [employer] Operator: Signed [facility]12-10-2024 Evaluation note* Diagnosis Onset Date Resolution Status Admit Date Cystocele and rectocele with incomplete uterovaginal prolapse acute July 29, 11:08am Pessary maintenance acute Decem 2023 11:08am Incontinence chronic July 11:08am [facility] Work Phone: 1(298) 713-758110-23-2024 [facility] PHYSICAL NAME ACCOUNT SEX AGE ADMIT DISCHARGE PT MED. RECORD# NUMBER DATE DATE TYPE ZAHRA [id number] Venkatesh 78 06/07/24 Katia Mansfield [id number] ROOM: 302PA DATE OF : 41 DICTATING PHYSICIAN: Yuniel Noble CHIEF COMPLAINT ON ADMISSION: Fatigue. 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 In the Emergency Room records, it is discussed she had a cough, fever, chills and muscle aches. She stated to me that she had a mild cough but came in to the Emergency Room because she has a history of blood clots. She was having spasms in both of her legs with fatigue, more sleepy, and felt like she was having increasing cramps in her legs. She came in worried about a blood clot. Her INR was therapeutic at 3. However, during her work-up it was noted she had a sodium of 121. She has recently been started on desmopressin last week for urinary incontinence, and she has noted that she has had increased pain in her legs. She started drinking more water. In the past, she has had difficulty with drinking excess water. She feels like it is the side effects from her medications, as she has a chronic dry mouth. She was seen by the urologist and put on this medication. She was asked to decrease her water intake, which she has attempted to do, and feels like she is drinking less but still quite a bit. In the Emergency Room, she had severe cramps in her legs requiring pain medication and antiemetics, and she was admitted for further management. Upon evaluation this morning, she had just been given morphine for severe cramping in her legs. PAST MEDICAL HISTORY: (1) Urinary incontinence. She is on multiple medications and treatment and followed by a urologist. (2) Leg cramps, which worsened recently. (3) Chronic dry mouth. She feels it is secondary to her medications. (4) Depression. (5) GERD. (6) Previous blood clot behind the uterine wall about 7-8 years ago. She was seen at a tertiary care center, and it was stated that she will be on anticoagulation for a lifetime. PAST SURGICAL HISTORY: Cholecystectomy. MEDICATIONS: See medication reconciliation list. ALLERGIES: Latex. FAMILY HISTORY: Mother at age 100. Father at age 71 with lung cancer and emphysema. SOCIAL HISTORY: She is a . She lives at home. She has a part-time job at Page 1 of 4 SINDY SWEENEY History & Physical SINDY SWEENEY Shyla :1945 [employer]. She does not smoke nor drink alcohol. REVIEW OF SYSTEMS: She stated she did have a cough, leg cramps, slight sore throat, and dry mouth but came in to the Emergency Room due to spasm in both legs, sleeping more often, and fatigue as well as nausea. No chest pain. No shortness of breath. No abdominal pain. No back pain. The rest of the review of systems were discussed and were negative. PHYSICAL EXAMINATION GENERAL APPEARANCE: The patient was lying in bed in no acute distress. She is alert and cooperative. VITAL SIGNS: Blood pressure is 140/75, heart rate 70, respirations 16, temperature 97.5, and oxygen saturation 95% on room air. Weight is 215 pounds with a BMI of 35.78. HEENT: Unremarkable. NECK: Supple. LUNGS: Normal respiratory effort, equal lung expansion, and clear to auscultation bilaterally. HEART: Regular rate and rhythm. ABDOMEN: Positive bowel sounds, soft and nontender. EXTREMITIES: Free of edema. She does have some calf tenderness on the left. NEUROLOGIC: She is alert and able to answer questions appropriately. Speech is clear. DIAGNOSTIC DATA: White count is 6.5, hemoglobin 13, and hematocrit 38.3. INR is 3. D-dimer is less than 200. Sodium is 121, repeated this morning at 126. Calcium is 8.2. Magnesium is 1.7. Lactate is negative. Influenza A and B are negative. SARS antigen is negative. IMPRESSIONS/PLAN: 1. Severe hyponatremia, likely secondary to desmopressin. 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 I did discuss with her diabetes insipidus will need to be ruled out as an outpatient. However, I will hold the desmopressin, although she had a dose yesterday. She is on IV fluids, and sodium is slowly improving. It may take an extended time for the sodium to go back to normal range. I discussed with her if it does improve tomorrow and is showing a trend of improvement she may be discharged home with outpatient follow-up. Page 2 of 4 SINDY SWEENEY History & Physical SINDY SWEENEY :1945 2. Leg cramps, which may be secondary to a new medication. However, she has had difficulty with this in the past. Potassium was within normal limits. I did order magnesium as well as a muscle relaxer and also acetamin (more content not included)...[facility]10-20-2024 NoteDischarge Instructions Discharge Summary [address] [address] [id number] 06/07/2024 Patient: SINDY SWEENEY Sex: Female : 1945 Age: 78y Thank you for visiting [facility]. You have been evaluated today by Gibson Thrasher D.O. for the following condition(s): Principal Diagnosis Severe hyponatremia You have been given the following additional information: Hyponatremia Patient Signature Facility [facility] Date/Time General Instructions with ExitWriter [address] [place] [address] [id number] 06/07/2024 Patient: SINDY SWEENEY Sex: Female : 1945 Age: 78y 1 of 3 Discharge Instructions Thank you for visiting [facility]. You have been evaluated today by Gibson Thrasher D.O. for the following condition(s): Principal Diagnosis Severe hyponatremia ADDITIONAL INFORMATION Hyponatremia Hyponatremia means low sodium levels in the blood. This health problem most often occurs after prolonged vomiting or diarrhea. Both of these conditions cause your body to lose too much water and sodium. Hyponatremia can also result from drinking large amounts of water or using diuretics (water pills).Rarely, it can occur from: Disorders of the endocrine system Illegal drug use (ecstasy) Some cancers, especially small cell lung cancer Kidney and liver disease Heart failure Mild hyponatremia causes no symptoms. It is only found with a blood test. As sodium levels in the blood drop, symptoms start to appear. This includes weakness, confusion, muscle cramping, and seizures. Home care You need to reduce your daily water intake until the problem goes away. If you have been taking diuretics, you may be asked to stop taking them for a short time. If you are having symptoms of weakness or confusion, don't drive or operate dangerous machinery until symptoms go away. If your sodium levels are too low to be managed at home, you will be asked to go to the hospital tohave your sodium replaced through your vein. 2 of 3 Discharge Instructions Follow-up care Follow up with your healthcare provider for a repeat blood test within the next week, or as advised. When to seek medical advice Call your healthcare provider if you have: Increasing weakness Dizziness Irregular heartbeat, extra beats, or very fast heart rate Increasing confusion Fainting or loss of consciousness Seizure 3 of 3Joel [facility] Diagnosis Onset Date Resolution Status Cystocele and rectocele with incomplete uterovaginal prolapse acute Pessary maintenance acute Cystocele and rectocele with incomplete uterovaginal prolapse acute Pessary maintenance acute [facility] Work Phone: Evaluation note* Diagnosis Onset Date Resolution Status Cystocele and rectocele with incomplete uterovaginal prolapse acute Pessary maintenance acute [facility] Work Phone: Evaluation note* Diagnosis Onset Date Resolution Status Cystocele and rectocele with incomplete uterovaginal prolapse acute Pessary maintenance acute Bacterial vaginosis noneacti ve Cystocele and rectocele with incomplete uterovaginal prolapse acute Pessary maintenance acute [facility] Work Phone: Evaluation note* Diagnosis Onset Date Resolution Status Cystocele and rectocele with incomplete uterovaginal prolapse acute Pessary maintenance acute Incontinence chronic [facility] Work Phone: Hospital Discharge instructions Additional Instructions As discussed, please consider talking to Dr. Vazquez about a Holter monitor. This would be a 48-hour heart monitor that may catch any episodes of dizziness and feeling as if you are going to pass out.[facility] Work Phone: Reason for referral (narrative)No reason for referral information availableWHock[facility] Work Phone: Summary Purpose Family History No Family History Records Found Relationship Condition Age at Onset Recorded Date/T dmitri father Malignant neoplasm of lung Unknown Advance Directives No Advanced Directives Records Found Advance Directive Response Recorded Date/ Time Advance Directives No March 09 7:05pm Living Will No July 12, 021 3:07am Power of Postal Mail Carrier No July 12, 2021 3:07am Advance Directive Response Recorded Date/ Time Advance Directives No March 09 15 7:05pm Living Will No May 01, 2022 11:10pm Power of Postal Mail Carrier No April 11:10pm Advance Directive Response Recorded Date/ Time Advance Directives No March 09 6:05pm Living Will No May 01, 2022 10:10pm Power of Postal Mail Carrier No April 10:10pm Advance Directive Response Recorded Date/ Time Living Will No May 01, 2022 11:10pm Power of Postal Mail Carrier No April 11:10pm Living Will No September 21 8:13am Power of Postal Mail Carrier No September 21, 2024 8:13am Advance Directives No March 09 7:05pm Advance Directive Response Recorded Date/ Time Advance Directives No March 09 15 7:05pm Chief Complaint and Reason for Visit Chief Complaint 3 mo pessary check 3 month pessary check Reason for Visit Cystocele and rectoc [place] with incomplete uterovaginal prolapse Pessary maintenance Cystocele and rectocele with incomplete uterovaginal prolapse 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 3 month pessary chec k dizziness Reason for Visit Cystocele and rectoc [place] with incomplete uterovaginal prolapse 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 dizziness dizziness 4M PESSARY CHECK Reason for Visit Cystocele and rectoc [place] with incomplete uterovaginal prolapse 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 3 MO PESSARY CHECK SCREENING/OSTEO 1 WK F/U Reason for Visit Cystocele and rectoc [place] with incomplete uterovaginal prolapse Pessary maintenance Bacterial vaginosis Cystocele and rectocele with incomplete uterovaginal prolapse 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 3 MO PESSARY CHECK SCREENING/OSTEO 1 WK F/U KNEE PAIN Reason for Visit Cystocele and rectoc [place] with incomplete uterovaginal prolapse Pessary maintenance Bacterial vaginosis Cystocele and rectocele with incomplete uterovaginal prolapse 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 3 MO FU Reason for Visit Cystocele and rectoc [place] with incomplete uterovaginal prolapse 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 pessary fu Reason for Visit Cystocele and rectoc [place] with incomplete uterovaginal prolapse Pessary maintenance Incontinence Chief Complaint Admit Date PESSARY CHECK July 29, 2024 11:08am nausea, chills, fever September 21, 2024 7:08am SCREENING October 08, 2024 12:56pm ABNORMAL BI October 21, 2024 9:07 am Reason for Visit Admit Date Cystocele and rectocele with incomplete uterovaginal prolapse July 29, 2024 11:08am Pessary maintenance July 29, 2024 11:08am Incontinence July 29, 2024 11:08am Chief Complaint Admit Date PESSARY CHECK December 02, 2024 12: 57pm Pessary Check February 24, 2025 10:13 am Reason for Visit Admit Date Cystocele and rectocele with incomplete uterovaginal prolapse December 02, 2024 12:57pm Pessary maintenance December 02, 2024 12: 57pm Chief Complaint Admit Date PESSARY CHECK December 02, 2024 12: 57pm Pessary Check February 24, 2025 10:13 am INR- DRAW SUNDAY AND REPEAT THURSDAY February 27, 2025 11:11am INR- March 02, 2025 10:1 3am Reason for Visit Admit Date Cystocele and rectocele with incomplete uterovaginal prolapse December 02, 2024 12:57pm Pessary maintenance December 02, 2024 12: 57pm Cystocele and rectocele with incomplete uterovaginal prolapse February 24, 2025 10:13am Pessary maintenance February 24, 2025 10:13 am Chief Complaint Admit Date PESSARY CHECK December 02, 2024 12: 57pm Pessary Check February 24, 2025 10:13 am INR- DRAW SUNDAY AND REPEAT THURSDAY February 27, 2025 11:11am INR- March 02, 2025 10:1 3am monthly PTNS March 31, 2025 12 :52pm Reason for Visit Admit Date Cystocele and rectocele with incomplete uterovaginal prolapse December 02, 2024 12:57pm Pessary maintenance December 02, 2024 12: 57pm Cystocele and rectocele with incomplete uterovaginal prolapse February 24, 2025 10:13am Pessary maintenance February 24, 2025 10:13 am Nocturia March 31, 2025 12 :52pm Urge incontinence March 31, 2025 12 :52pm Chief Complaint Admit Date Pessary Check February 24, 2025 10:13 am INR- DRAW SUNDAY AND REPEAT THURSDAY February 27, 2025 11:11am INR- March 02, 2025 10:1 3am monthly PTNS March 31, 2025 12 :52pm ptns April 28, 2025 10:25am Reason for Visit Admit Date Cystocele and rectocele with incomplete uterovaginal prolapse February 24, 2025 10:13am Pessary maintenance February 24, 2025 10:13 am Nocturia March 31, 2025 12 :52pm Urge incontinence March 31, 2025 12 :52pm Nocturia April 28, 2025 10:25am Urge incontinence April 28, 2025 10:25am Additional Source Comments INFORMATION SOURCE (unrecogn ized section and content) DATE CREATED AUTHOR 02/12/2018 [facility] DATE CREATED AUTHOR AUTHOR'S ORGANIZ ATION 06/11/2024 [facility] DATE CREATED AUTHOR AUTHOR'S ORGANIZ ATION 04/30/2025 [facility] Goals (unrecognized section and content) Goals may be documented in a n alternate sectionGoals may be documented in an alternate sectionGoals may be documented in an alternate sectionGoals may be documented in an alternate sectionGoals may be documented in an alternate sectionGoals may be documented in an alternate sectionGoals may be documented in an alternate sectionGoals may be documented in an alternate sectionGoals may be documented in an alternate sectionGoals may be documented in an alternate sectionGoals may be documented in an alternate sectionGoals may be documented in an alternate sectionGoals may be documented in an alternate section Care Teams (unrecognized sec tion and content) Team Status: Active Member Role Status Dates Dr. True Vazquez MD Family Provider Active Dr. True Vazquez MD Primary Care Provider Activ e Team Status: Inactive Member Role Status Dates Dr. True Vazquez MD Primary Care Provider, Refe rring Provider Active Lindsay Rahman [employer] LOOM WEAVER, [employer] WEAVER-C Attending Provider Active Team Status: Inactive Member Role Status Dates Dr. True Vazquez MD Primary Care Provider, Attending Provider, Referring Provider Active Team Status: Inactive Member Role Status Dates Dr. True Vazquez MD Primary Care Provider, Atte nding Provider Active Team Status: Active Member Role Status Dates Dr. Litzy Vazquez MD Primary Care Provider Acti ve Team Status: Inactive Member Role Status Dates Dr. Litzy Vazquez MD Primary Care Provider Acti ve Start: July 29, 2024 End: July 29, 2024 Dr. Litzy Vazquez MD Referring Provider Active Start: July 29, 2024 End: July 29, 2024 Lindsay Rahman DOBBY LOOM WEAVER, [employer]BB[employer] LOOM WEAVER-C Attending Provider Active Start: July 29, 2024 End: July 29, 2024 Team Status: Inactive Member Role Status Dates Dr. Litzy Vazquez MD Primary Care Provider Acti ve Start: September 21, 2024 End: September 21, 2024 Dr. Haseeb Morales DO Attending Provider Activ e Start: September 21, 2024 End: September 21, 2024 Dr. Haseeb Morales DO Emergency Provider Activ e Start: September 21, 2024 End: September 21, 2024 Team Status: Inactive Member Role Status Dates Dr. Litzy Vazquez MD Primary Care Provider Acti ve Start: October 08, 2024 End: October 08, 2024 Dr. Litzy Vazquez MD Attending Provider Active Start: October 08, 2024 End: October 08, 2024 Dr. Litzy Vazquez MD Referring Provider Active Start: October 08, 2024 End: October 08, 2024 Team Status: Inactive Member Role Status Dates Dr. Litzy Vazquez MD Primary Care Provider Acti ve Start: October 21, 2024 End: October 21, 2024 Dr. Litzy Vazquez MD Attending Provider Active Start: October 21, 2024 End: October 21, 2024 Dr. Litzy Vazquez MD Referring Provider Active Start: October 21, 2024 End: October 21, 2024 Team Status: Active Member Role/Relationship Status Dates Dr. Litzy Vazquez MD Primary Care Provider Acti ve Team Status: Inactive Member Role/Relationship Status Dates Dr. Litzy Vazquez MD Primary Care Provider Acti ve Start: December 02, 2024 End: December 02, 2024 Dr. Litzy Vazquez MD Referring Provider Active Start: December 02, 2024 End: December 02, 2024 Lindsay Rahman DOBBY LOOM WEAVER, DOBB[employer] LOOM WEAVER-C Attending Provider Active Start: December 02, 2024 End: December 02, 2024 Team Status: Inactive Member Role/Relationship Status Dates Dr. Litzy Vazquez MD Primary Care Provider Acti ve Start: February 24, 2025 End: February 24, 2025 Dr. Litzy Vazquez MD Referring Provider Active Start: February 24, 2025 End: February 24, 2025 Lindsay Rahman DOBBY LOOM WEAVER, [employer]BB[employer] LOOM WEAVER-C Attending Provider Active Start: February 24, 2025 End: February 24, 2025 Team Status: Inactive Member Role/Relationship Status Dates Dr. Litzy Vazquez MD Primary Care Provider Acti ve Start: February 27, 2025 End: February 27, 2025 Dr. Angelo Arias MD Attending Provider Active St art: February 27, 2025 End: February 27, 2025 Dr. Angelo Arias MD Referring Provider Active St art: February 27, 2025 End: February 27, 2025 Team Status: Active Member Role/Relationship Status Dates Dr. Litzy Vazquez MD Primary Care Provider Acti ve Start: March 02, 2025 Dr. Angelo Arias MD Attending Provider Active St art: March 02, 2025 Dr. Angelo Arias MD Referring Provider Active St art: March 02, 2025 Team Status: Inactive Member Role/Relationship Status Dates Dr. Litzy Vazquez MD Primary Care Provider Acti ve Start: March 02, 2025 End: March 02, 2025 Dr. Angelo Arias MD Attending Provider Active St art: March 02, 2025 End: March 02, 2025 Dr. Angelo Arias MD Referring Provider Active St art: March 02, 2025 End: March 02, 2025 Team Status: Inactive Member Role/Relationship Status Dates Dr. Litzy Vazquez MD Primary Care Provider Acti ve Start: February 17, 2025 Dr. Kiah Guajardo MD Attending Provider Active Start: February 17, 2025 Team Status: Inactive Member Role/Relationship Status Dates Dr. Litzy Vazquez MD Primary Care Provider Acti ve Start: February 24, 2025 End: February 24, 2025 Dr. Litzy Vazquez MD Referring Provider Active Start: February 24, 2025 End: February 24, 2025 Lindsay Rahman [employer]BBY LOOM WEAVER, [employer]BBY LOOM WEAVER-C Attending Provider Active Start: February 24, 2025 End: February 24, 2025 Team Status: Inactive Member Role/Relationship Status Dates Dr. Litzy Vazquez MD Primary Care Provider Acti ve Start: February 27, 2025 End: February 27, 2025 Dr. Angelo Arias MD Attending Provider Active St art: February 27, 2025 End: February 27, 2025 Dr. Angelo Arias MD Referring Provider Active St art: February 27, 2025 End: February 27, 2025 Team Status: Inactive Member Role/Relationship Status Dates Dr. Ltizy Vazquez MD Primary Care Provider Acti ve Start: March 02, 2025 End: March 02, 2025 Dr. Angelo Arias MD Attending Provider Active St art: March 02, 2025 End: March 02, 2025 Dr. Angelo Arias MD Referring Provider Active St art: March 02, 2025 End: March 02, 2025 Team Status: Inactive Member Role/Relationship Status Dates Dr. Litzy Vazquez MD Primary Care Provider Acti ve Start: March 31, 2025 End: March 31, 2025 Dr. Litzy Vazquez MD Referring Provider Active Start: March 31, 2025 End: March 31, 2025 Dr. Kiah Guajardo MD Attending Provider Active Start: March 31, 2025 End: March 31, 2025 Team Status: Inactive Member Role/Relationship Status Dates Dr. Litzy Vazquez MD Primary Care Provider Acti ve Start: February 17, 2025 Dr. Kiah Guajardo MD Attending Provider Active Start: February 17, 2025 Team Status: Inactive Member Role/Relationship Status Dates Dr. Litzy Vazquez MD Primary Care Provider Acti ve Start: March 31, 2025 End: March 31, 2025 Dr. Litzy Vazquez MD Referring Provider Active Start: March 31, 2025 End: March 31, 2025 Dr. Kiah Guajardo MD Attending Provider Active Start: March 31, 2025 End: March 31, 2025 Team Status: Inactive Member Role/Relationship Status Dates Dr. Litzy Vazquez MD Primary Care Provider Acti ve Start: April 28, 2025 End: April 28, 2025 Dr. Litzy Vazquez MD Referring Provider Active Start: April 28, 2025 End: April 28, 2025 Dr. Kiah Guajardo MD Attending Provider Active Start: April 28, 2025 End: April 28, 2025 FOR RECORDS PERTAINING TO PATIENTS WHO ARE OR HAVE BEEN ENROLLED IN A CHEMICAL DEPENDENCY/SUBSTANCEABUSE PROGRAM, SOME INFORMATION MAY BE OMITTED. This clinical summary was aggregated from multiple sources. Caution should be exercised in using it in the provision of clinical care. This summary normalizes information from multiple sources, and as a consequence, information in this document may materially change the coding, format and clinical context of patient data. In addition, data may be omitted in some cases. CLINICAL DECISIONS SHOULD BE BASED ON THE PRIMARY CLINICAL RECORDS. [employer] provides no warranty or guarantee of the accuracy or completeness of information in this document.
== END | disposition home or self-care (01) ==
LOC: MFPLAB 12:06
PROVIDERS: PCP Family Medicine; Visit Provider Family Medicine
DX: D64.9 Anemia, unspecified (principal)
CPT/HCPCS: 36415; 82728; 83540; 85027

== ENCOUNTER 2025-05-23 18:20 | Emergency (ER) | payer MEDICARE, SELFPAY ==
[2025-05-23 18:21] VITALS: PULSE 87; RESP 16; TEMP 37.2; O2SAT 97; BMI 33.8
[2025-05-23 18:25] VITALS: BP 148/64
--- NOTE | 2025-05-23 18:43 | EDS_ITS ---
HPI History of Present Illness Chief Complaint: Nausea/Vomiting/Diarrhea [facility] Medical History Urge incontinence Nocturia Knee injury Incontinence Phlebitis and thrombophlebitis of superficial vessels of lower extremities, bilateral Emphysema lung Anxiety Colonoscopy planned Home Medications ?Medication ?Instructions ?Recorded ?Last Taken ?Type acetaminophen 500 mg tablet 1,000 mg PO BID PRN Pain 0 03/09/15 10/23/18 History albuterol sulfate 90 mcg/actuation 1 puff inhalation Q 4H PRN PRN Sob 12/31/16 10/21/18 History aerosol inhaler &/Or Wheezing buspirone 10 mg tablet 10 mg PO TID 08/27/18 History esomeprazole magnesium 20 mg 40 mg PO DAILY 10/23/18 0 10/23/18 History capsule,delayed release clotrimazole-betamethasone 1 1 applic topical BID 2 we eks #45 07/12/20 Unknown Rx %-0.05 % topical cream grams warfarin 1 mg tablet See Rx Instructions PO DAILY 10/27/20 Unknown History fluticasone propionate 50 2 spray inhalation DAILY PRN 11/02/21 Unknown History mcg/actuation nasal spray,suspension guaifenesin 600 mg tablet, 600 mg PO QDAY 11/02/21 Unk nown History extended release 12 hr (Mucinex) magnesium 30 mg tablet 30 mg PO DAILY 11/02/21 Unkn own History polyethylene glycol 3350 17 17 g PO DAILY PRN 11/02/21 Unknown History gram/dose oral powder (Miralax) mirabegron 50 mg tablet,extended 50 mg PO DAILY Unknown History release 24 hr (Myrbetriq) ascorbate calcium (vitamin C) 500 500 mg PO DAILY 09/20 12/10 Unknown History mg tablet calcium amino acid chelate mg PO 03/31/25 Unknown Hist ory cholecalciferol (vitamin D3) 625 625 mcg PO QWEEK 03/20 10/14 Unknown History mcg (25,000 unit) capsule denosumab 60 mg/mL subcutaneous 60 mg subcut [id number] 03/31/25 Unknown History syringe (Prolia) fesoterodine 8 mg tablet,extended 8 mg PO QDAY 5 Unknown History release 24 hr mecobalamin (vitamin B12) 1,000 1,000 mcg PO QDAY 03/20 10/14 Unknown History mcg chewable tablet Allergy/AdvReac Type Severity Reaction Status Date / Time latex AdvReac Rash Verified 02/24/25 10:15 Family History Father Lung cancer Surgical History Hx of cholecystectomy History of hip replacement Social History
--- NOTE | 2025-05-23 18:43 | EX.ED.GENINJ ---
HPI History of Present Illness Chief Complaint: Nausea/Vomiting/Diarrhea [facility] Medical History Urge incontinence Nocturia Knee injury Incontinence Phlebitis and thrombophlebitis of superficial vessels of lower extremities, bilateral Emphysema lung Anxiety Colonoscopy planned Home Medications ?Medication ?Instructions ?Recorded ?Last Taken ?Type acetaminophen 500 mg tablet 1,000 mg PO BID PRN Pain 03/09/15 10/23/18 History albuterol sulfate 90 mcg/actuation 1 puff inhalation Q4H PRN PRN Sob 12/31/16 10/21/18 History aerosol inhaler &/Or Wheezing buspirone 10 mg tablet 10 mg PO TID 08/27/18 10/23/18 History esomeprazole magnesium 20 mg 40 mg PO DAILY 10/23/18 10/23/18 History capsule,delayed release clotrimazole-betamethasone 1 1 applic topical BID 2 weeks #45 07/12/20 Unknown Rx %-0.05 % topical cream grams warfarin 1 mg tablet See Rx Instructions PO DAILY 10/27/20 Unknown History fluticasone propionate 50 2 spray inhalation DAILY PRN 11/02/21 Unknown History mcg/actuation nasal spray,suspension guaifenesin 600 mg tablet, 600 mg PO QDAY 11/02/21 Unknown History extended release 12 hr (Mucinex) magnesium 30 mg tablet 30 mg PO DAILY 11/02/21 Unknown History polyethylene glycol 3350 17 17 g PO DAILY PRN 11/02/21 Unknown History gram/dose oral powder (Miralax) mirabegron 50 mg tablet,extended 50 mg PO DAILY 06/06/22 Unknown History release 24 hr (Myrbetriq) ascorbate calcium (vitamin C) 500 500 mg PO DAILY 10/03/22 Unknown History mg tablet calcium amino acid chelate mg PO 03/31/25 Unknown History cholecalciferol (vitamin D3) 625 625 mcg PO QWEEK 03/31/25 Unknown History mcg (25,000 unit) capsule denosumab 60 mg/mL subcutaneous 60 mg subcut [id number] 03/31/25 Unknown History syringe (Prolia) fesoterodine 8 mg tablet,extended 8 mg PO QDAY 03/31/25 Unknown History release 24 hr mecobalamin (vitamin B12) 1,000 1,000 mcg PO QDAY 03/31/25 Unknown History mcg chewable tablet Allergy/AdvReac Type Severity Reaction Status Date / Time latex AdvReac Rash Verified 02/24/25 10:15 Family History Father Lung cancer Surgical History Hx of cholecystectomy History of hip replacement Social History Smoking Status: Never smoker alcohol intake: never substance use type: does not use caffeine: Yes what type of physical activity do you participate in: none seatbelt use: always do you feel safe at home: Yes additional social history: - Max EXAM Physical Exam Const Vital Signs: 05/23/25 18:21 05/23/25 18:25 05/23/25 20:29 Temperature 98.9 F Temperature Source Oral Pulse Rate 87 94 Respiratory Rate 16 20 H Blood Pressure 148/64 H 149/58 H Blood Pressure Mean 92 88 Pulse Ox 97 97 Oxygen Delivery Method Room Air Room Air 05/23/25 22:00 Temperature Temperature Source Pulse Rate 84 Respiratory Rate 19 H Blood Pressure 149/65 H Blood Pressure Mean 93 Pulse Ox 96 Oxygen Delivery Method Room Air MDM MDM MDM Narrative Medical decision making narrative: HISTORY OF PRESENT ILLNESS: Chief complaint: Nausea vomiting diarrhea 79-year-old female history of obesity, UTI, DVT (on warfarin) and asthma presents with 2 days of nausea vomiting diarrhea. She notes symptoms have progressed to sinus issues. She also notes headache, elevated blood pressure as well as flutters in my chest. She states she started with vomiting and diarrhea. The vomiting is since resolved but she still has 3-4 episodes of watery stools per day. Denies any blood in her stool. Notes diffuse muscle aches also notes diffuse abdominal pain. She notes since her vomiting has stopped she developed a severe headache. She denies any falls or trauma. She also notes today she developed left-sided chest pain and palpitations. She notes compliance with warfarin. She denies any urinary complaints. She denies reports history of a cholecystectomy but otherwise denies history of other abdominal surgeries. She denies any sick contacts. Denies any recent travel or antibiotics. She denies any PE risk factors. Denies any aortic dissection risk factors REVIEW OF SYSTEMS: Pertinent positives: Nausea, vomiting, diarrhea, headache, palpitation Pertinent negatives: Focal weakness, loss of sensation, dysuria, hematuria, frequency or urgency PHYSICAL EXAM: Nursing triage notes reviewed, Vital signs reviewed Constitutional: please see [facility] HENT: MMM Eyes: Pupils equal round and reactive to light, Extraocular muscles intact Neck: No stridor, no JVD, full neck ROM Lungs: Clear to auscultation, No wheezing or rales. No increased work of breathing, no conversational dyspnea, no accessory muscle use, no nasal flaring. No respiratory distress noted Heart: Regular rate and rhythm, No murmurs, No rubs and No gallops, 2+ distal pulses (radial, femoral, posterior tibial) in all extremities Abdomen: Soft, there is no tenderness, rigidity, rebound or guarding, no obvious peritoneal signs, no palpable pulsatile abdominal masses, no auscultated abdominal bruit : No CVAT Extremities: No edema Neuro: No new focal neurological deficits, cranial nerves II through XII intact, 5/5 strength in all present extremities. Intact sensation to light touch in all present extremities, 2+ reflexes bilateral patella tendons. Skin: No rash or lesions noted MEDICAL DECISION MAKING: Chief Complaint: please see HPI External records reviewed: Reviewed prior imaging studies Factors affecting care: As per [facility] Social determinants of health: elderly History obtained from others: Daughter Consults: none [facility] Narrative: The patient was initially hemodynamically stable, afebrile and nontoxic-appearing. Exam without focal neurologic deficits. No focal cardiopulmonary abnormalities. Abdomen was diffusely tender but was not distended with no peritoneal sign I considered the following differential diagnosis: ICH, arrhythmia, anemia, pneumonia, electrolyte disturbance, dehydration, acute kidney injury, abdominal perforation obstruction, viral illness I obtained a broad lab and imaging work to further determine if the patient was suffering from a life-threatening etiology. Initially treated the patient with 500 cc IV fluid bolus and Reglan for headache and nausea control. ALL IMAGES (IF OBTAINED) HAVE BEEN PERSONALLY REVIEWED AND INTERPRETED BY MYSELF. EKG with normal sinus rhythm, rate of 86, right axis deviation, right bundle branch block, no obvious STEMI. Similar to prior EKG noted from September 2024 High-sensitivity troponin is negative, no evidence of myocardial ischemia x 2 (ACS ruled out based on [facility] high-sensitivity troponin protocol) CBC with no leukocytosis, noted mild anemia (improved from baseline) but no thrombocytopenia was noted INR therapeutic at 2.1 BMP without evidence of significant electrolyte abnormalities, no anion gap, no acute kidney injury. LFTs show no evidence of hepatobiliary pathology. Lipase is wnl indicating no pancreatic inflammation. Urinalysis with signs of inflammation but no definitive sign of UTI. Low suspicion for UTI given lack of symptoms COVID/RSV/flu negative I have personally reviewed the patient's chest x-ray. Chest x-ray is unremarkable for pulmonary edema, pneumothorax, pneumonia or focal cardiopulmonary abnormality. CT scan of the brain was negative for ICH CT scan of the abdomen pelvis was negative for signs of surgical emergencies in the abdomen including perforation or obstruction The synthesis of the patient's history, physical exam, labs images suggest no acute life or limb threatening etiology. Patient is likely suffering from a viral gastroenteritis. Will give symptomatic nausea vomit control in the form of Compazine which also double as headache/migraine control. Give strict return precautions. Patient know she has a follow with her PCP on Sunday. Encouraged to keep this appointment The patient and/or family, caregivers express understanding. The patient and/or family, caregivers agrees with the plan. Shared decision making: I will have a discussion with the patient and or visitors regarding risk/benefits of further testing or admission. They will be made aware of of the risk/benefits inherent in this decision they will be given the opportunity to voice understanding. Total critical care time today provided was at least 0 minutes. This excludes separately billable procedures. Critical care time (if documented) is secondary to the patient having high probability of clinically significant/life threatening deterioration in the patient's condition which required my urgent intervention. Impression: 1. Headache 2. Palpitations 3. Abdominal pain 4. Nausea/vomiting and diarrhea Dispo: Discharge home This note was generated with [employer] dictation software. It may contain incorrect words, spelling, and punctuation that were not noted in review of the chart prior to signing. Lab Data Labs: Laboratory Results - last 24 hr 05/23/25 05/23/25 05/23/25 19:35 20:28 21:33 WBC 8.0 RBC 3.86 L Hgb 11.5 L Hct 35.9 L MCV 93.0 MCH 29.8 MCHC 32.0 RDW Std Deviation 63.1 H RDW Coeff of Sam 18.6 H Plt Count 160 MPV 9.9 Immature Gran % (Auto) 0.300 Neut % (Auto) 80.4 H Lymph % (Auto) 4.7 L [place] % (Auto) 14.2 H Eos % (Auto) 0.3 Baso % (Auto) 0.1 Absolute Neuts (auto) 6.4 Absolute Lymphs (auto) 0.37 L Nucleated RBC % 0 PT 24.0 H INR 2.1 Sodium 135 Potassium 3.9 Chloride 100 Carbon Dioxide 22.7 Anion Gap 13 BUN 11 Creatinine 0.82 Estim Creat Clear Calc 60.41 Est GFR (MDRD) Non-Af 72 BUN/Creatinine Ratio 13.8 Glucose 102 H Calcium 8.7 Total Bilirubin 0.62 AST 20 ALT 10 Alkaline Phosphatase 55 Troponin T High Sens 14 Troponin T Hi Sens 2 Hr 15 H Total Protein 6.2 Albumin 3.6 Globulin 2.6 Albumin/Globulin Ratio 1.4 Lipase 13 Urine Color Yellow Urine Clarity Clear Urine pH 6.0 Ur Specific [place] 1.020 Urine Protein 30 H Urine Glucose (UA) 1000 H Urine Ketones Negative Urine Occult Blood 250 H Urine Nitrite Negative Urine Bilirubin Negative Urine Urobilinogen Normal Ur Leukocyte Esterase 500 H Urine RBC 10-25 SEEN Urine WBC 5-10 SEEN Ur Squamous Epith Cells 0-5 SEEN Urine Bacteria 1+ Urine Mucus 0 SEEN Radiography Diagnostic Testing: Clinical Impression(s) from Imaging Studies Abdomen/Pelvis CT 05/23/25 18:56 IMPRESSION: No suspicious solid organ abnormality, intrahepatic biliary dilatation likely sequela from previous cholecystectomy Uterus is present, the endometrium can not be accurately evaluated with CT. No free intraperitoneal fluid, air, or suspicious adenopathy Prominent retrocardiac hiatal hernia Degenerative bony changes Reading Location: [facility] Brain CT 05/23/25 18:56 IMPRESSION: Age consistent changes, no acute findings Ethmoid sinusitis Reading Location: [id number] Chest X-Ray 05/23/25 19:52 IMPRESSION: No Acute Findings. Reading Location: [facility] Discharge Plan Triage Chief Complaint: Nausea/Vomiting/Diarrhea ED Provider: Carloz Lerma Dx/Rx/DC Orders Prescriptions: No Action buspirone 10 mg tablet 10 mg PO TID clotrimazole-betamethasone 1-0.05 % cream 1 applic TOPICAL BID 14 Days Qty: 45 1RF warfarin 1 mg tablet See Rx Instructions PO DAILY Rx Instructions: 2mg m-w-, 2.5mg other days PO daily; guaifenesin [Mucinex] 600 mg tablet extended release 12hr 600 mg PO QDAY magnesium 30 mg tablet 30 mg PO DAILY polyethylene glycol 3350 [Miralax] 17 gram/dose powder 17 g PO DAILY PRN Myrbetriq 50 mg tablet extended release 24 hr 50 mg PO DAILY ascorbate calcium (vitamin C) 500 mg tablet 500 mg PO DAILY Prolia 60 mg/mL syringe 60 mg subcut [id number] mecobalamin (vitamin B12) 1,000 mcg tablet,chewable 1,000 mcg PO QDAY fesoterodine 8 mg tablet extended release 24 hr 8 mg PO QDAY cholecalciferol (vitamin D3) 625 mcg (25,000 unit) capsule 625 mcg PO QWEEK calcium amino acid chelate 200 mg calcium tablet PO acetaminophen 500 MG tablet 1,000 mg PO BID PRN (Reason: Pain) Patient Comments: pain albuterol sulfate 1 INHALER inhaler 1 puff inhalation Q4H PRN PRN (Reason: Sob &/Or Wheezing) Patient Comments: breathing esomeprazole magnesium 20 MG capsule 40 mg PO DAILY fluticasone propionate 50 mcg/actuation spray,suspension 2 spray inhalation DAILY PRN Primary Care Provider: Davey Vazquez Referrals: Davey Vazquez MD [Primary Care Provider, Family Practice] Print Language: Sinhala
--- NOTE | 2025-05-23 18:56 | CT_ITS ---
PROCEDURE: ABDOMEN/PELVIS W IV CONT ONLY 05/23/2025 REASON FOR EXAM: DIFFUSE ABDOMINAL PAIN, VOMITING AND DIARRHEA TECHNIQUE: Procedure Code: [id number] Modality: CT Procedure: ABDOMEN/PELVIS W IV CONT ONLY Coronal and Sagittal reconstruction series were provided. CONTRAST: Isovue 370 VOLUME: 100 mL One or more dose reduction techniques were used (e.g., Automated exposure control, adjustment of the mA and/or kV according to patient size, use of iterative reconstruction technique. RADIATION DOSE SUMMARY: CTDlvol: 39.20 mGy DLP: 1748.89 mGycm COMPARISON: None FINDINGS: Lung bases: Chronic interstitial changes with compressive atelectasis in the left lung base due to a prominent hiatal hernia Liver: Normal size. No mass. Gallbladder: Surgically absent. Spleen: Normal size. Pancreas: Normal size without evidence of mass surrounding inflammation or ductal dilation. Adrenals: Unremarkable Kidneys: No obstructive uropathy or suspicious solid renal lesion. Bladder: Unremarkable Reproductive Organs: The uterus present, the endometrium can not be accurately evaluated with CT. No suspicious cystic mass or free fluid, there is a pessary noted Bowel: No obstruction or acute inflammation. Diffuse colonic diverticulosis without CT evidence of acute diverticulitis. Appendix: Appendix seen on coronal recon images 40 through 45 Lymph nodes: No suspicious mesenteric or retroperitoneal adenopathy Vasculature: Peripheral calcifications in the abdominal aorta without aneurysm. Peritoneum / Retroperitoneum: No free fluid or air Bones: Degenerative bony changes, replaced hip joints free of complication. CT/Abdomen/Pelvis W IV Cont ONLY IMPRESSION: No suspicious solid organ abnormality, intrahepatic biliary dilatation likely s equela from previous cholecystectomy Uterus is present, the endometrium can not be accurately evaluated with CT. No free intraperitoneal fluid, air, or suspicious adenopathy Prominent retrocardiac hiatal hernia Degenerative bony changes Reading Location: [id number]
--- NOTE | 2025-05-23 18:56 | EKG12_ITS ---
Test Reason : DYSRHYTHMIA Blood Pressure : */* mmHG Vent. Rate : 86 BPM Atrial Rate : 86 BPM P-R Int : 150 ms QRS Dur : 144 ms QT Int : 374 ms P-R-T Axes : 36 14 24 degrees QTcB Int : 447 ms Normal sinus rhythm Right bundle branch block Abnormal ECG Confirmed by SAVITA OSMAN MD ([id number]), editorial specialist GLENROY VOGT ([id number]) on 05/25/2025 8:34:42 AM Referred By: Confirmed By: SAVITA OSMAN MD
--- NOTE | 2025-05-23 18:56 | CT_ITS ---
PROCEDURE: BRAIN/HEAD WITHOUT CONTRAST 05/23/2025 REASON FOR EXAM: HEADACHE TECHNIQUE: Procedure Code: CTBR Modality: CT Procedure: BRAIN/HEAD WITHOUT CONTRAST Coronal and Sagittal reconstruction series were provided. One or more dose reduction techniques were used (e.g., Automated exposure control, adjustment of the mA and/or kV according to patient size, use of iterative reconstruction technique. RADIATION DOSE SUMMARY: CTDlvol: 44.99 mGy DLP: 796.11 mGycm COMPARISON: None FINDINGS: Age consistent periventricular and deep white matter changes with remote basal ganglia infarcts. No acute hemorrhage midline shift or mass effect. Hyperostosis frontalis is noted which may be due to medication. No skull fracture or scalp hematoma, mucosal thickening in the ethmoid sinuses.. Evidence of previous cataract surgery CT/Brain/Head without Contrast IMPRESSION: Age consistent changes, no acute findings Ethmoid sinusitis Reading Location: [id number]
--- OUTSIDE RECORDS SUMMARY | 2025-05-23 19:05 | XMS RPT_ITS | CCD ---
Author Organization 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 True Vazquez Primary Care Provider Dr. True Vazquez Referring Provider Josiah CLOTH WIRE WEAVER, CLOTH WIRE WEAVER-C Lindsay Attending Provider Dr. True Vazquez Primary Care Provider [phone] Dr. True Vazquez Referring Provider Josiah CLOTH WIRE WEAVER, CLOTH WIRE WEAVER-C Lindsay Attending Provider [phone] Dr. True Vazquez Primary Care Provider Dr. Pedro Morin Attending Provider [phone] Dr. Ainsley Culver Referring Provider Dr. True Vazquez Referring Provider Josiah CLOTH WIRE WEAVER, CLOTH WIRE WEAVER-C Lindsay Attending Provider Dr. True Vazquez Primary Care Provider Dr. True Vazquez Referring Provider Josiah CLOTH WIRE WEAVER, CLOTH WIRE WEAVER-C Lindsay Attending Provider Dr. True Vazquez Primary Care Provider Dr. True Vazquez Referring Provider Josiah CLOTH WIRE WEAVER, CLOTH WIRE WEAVER-C Lindsay Attending Provider Dr. True Vazquez Primary Care Provider Dr. True Vazquez Referring Provider Josiah CLOTH WIRE WEAVER, CLOTH WIRE WEAVER-C Lindsay Attending Provider MUSTAPHA COLLINS MD Admitting Unavailable LITZY VAZQUEZ MD Referring Unavailab LITZY Pearce MD Consulting Unavailab le MUSTAPHA COLLINS MD Attending Unavailable MUSTAPHA COLLINS MD Primary Care Unavailable PROVIDER, UNKNOWN Consulting Unavailable George HUNT, Dr. Mariscal Primary Care Provider George HUNT, Dr. Mariscal Referring Provider Josiah CLOTH WIRE WEAVER-CLindsay [facility]ending [facility] Membreno [facility]ending [facility] Dr. Membreno Emergency Provider George HUNT, Dr. Mariscal Attending Provider Dr. Litzy Vazquez MD Primary Care Provider George HUNT, Dr. Mariscal Referring Provider Josiah CLOTH WIRE WEAVER-CLindsay Attending Provider Hugo HUNT, Dr. Stephens Attending Provider [phone] Hugo HUNT, Dr. Stephens Referring Provider [phone] Bennett HUNT, Dr. Dupont Attending Provider George HUNT, Dr. Mariscal Primary Care Provider Dr. Litzy Vazquez MD Referring Provider [phone] Josiah CLOTH WIRE WEAVER-C, Lindsay Attending Provider George HUNT, Dr. Mariscal Primary Care Physicia n Bennett HUNT, Dr. Dupont Attending Physician Josiah CLOTH WIRE WEAVER-C, Lindsay Attending Physician Huog HUNT, Dr. Stephens Attending Physician George HUNT, Dr. Mariscal Attending Physician Ranloma mar, Christopher Primary Care Unavailable Haseeb Morales Attending Unavailabl e [place] [facility] Unavailable Arias, Angelo Referring Unavailable Arias, Angelo Attending Unavailable Ranney, Christopher Primary Care Unavailable Ranney, Christopher Attending Unavailable Ranney, Christopher Primary Care Unavailable Wyneski, Kiah Referring Unavailable WyneskiKiah Attending Unavailable Ranney, Christopher Primary Care Unavailable Ranney, Christopher Referring Unavailable [place] CLOTH WIRE WEAVER, Lindsay Attending Unavailable [place] CLOTH WIRE WEAVER, Lindsay Attending Unavailable Ranney, Christopher Primary Care Unavailable Ranney, Christopher Referring Unavailable Ranney, Christopher Primary Care Unavailable Ranney, Christopher Referring Unavailable [place] CLOTH WIRE WEAVER, Lindsay Attending Unavailable Ranney, Christopher Primary Care Unavailable Ranney, Christopher Referring Unavailable Wyneski, Kiah Attending Unavailable Ranney, Christopher Primary Care Unavailable WyneskiKiah Attending Unavailable Ranney, Christopher Referring Unavailable Ranney, Christopher Primary Care Unavailable Ranney, Christopher Referring Unavailable Josiah CLOTH WIRE WEAVER, Lindsay Attending Unavailable Ranney, Christopher Primary Care Unavailable Ranney, Christopher Referring Unavailable Josiah CLOTH WIRE WEAVER, Lindsay Attending Unavailable Ranney, Christopher Consulting Unavailable Ranney, Christopher Primary Care Unavailable Wyneski, Kiah Referring Unavailable Wyneski, Kiah Attending Unavailable Ranney, Christopher Primary Care Unavailable Ranney, Christopher Referring Unavailable Ranney, Christjohner Attending Unavailable Ranney, Christopher Primary Care Unavailable Ranney, Christopher Referring Unavailable Ranney, Christopher Attending Unavailable Ranney, Christopher Primary Care Unavailable Arias, Angelo Referring Unavailable Hugo Angelo Attending Unavailable Allergies Allergy Classification Reported Allergen(s) Allergy Type Date of Onset Reaction(s) Facility (2 sources) Latex rubber gloves drug allergy 7 dayana [facility] Work Phone: (17 sources) Latex; Translations: [LATEX] Propensity to adverse reactions to drug (disorder) [address] [facility] Repository (1 source) oxyCODONE; Translations: [OXYCODONE] Drug Allergy 3 [facility] Repository Medications Current Medications Medication Drug Class(es) Dates Sig (Normalized) Sig (Original) acetaminophen 500 mg oral tablet (14 sources) Start: 03-09-2015 take 2 tablets by mouth twice daily as needed for pain Start: 03-09-2015 take 1000 mg by mout h twice daily Acetaminophen Active 1000 MG PO TWICE A DAY March 08, 2015 11:00pm [id number] actuat albutero l 0.09 mg/actuat metered dose inhaler (14 sources) beta2-Adrenergic Agonist Start: 12-31-2016 Start: 12-31-2016 take 1 puff(s) by in halation every four hours as needed Albuterol Sulfate Active 1 PUFF INHALATION EVERY 4 HOURS NEEDED December 30, 2016 11:00pm betamethasone 0.5 mg/ml / clotrimazole 10 mg/ml topical cream (14 sources) Azole Antifungal, Corticosteroid Start: 07-12-2020 Start: 07-12-2020 Clotrimazole-B etamethasone Active 1 APPLIC TOPICAL TWICE A DAY July 12, 2020 12:00am busPIRone hydrochloride 10 m g oral tablet (16 sources) Start: 08-27-2018 take 1 tablet by rosamaria th three times daily Start: 04-11-2017 take 1 tablet by rosamaria th once daily BUSPIRONE HCL 10 MG TABS One tablet by mouth daily BUSPIRONE HCL [id number] Stephanie Dacosta MD Calcium Amino Acid Chelate 2 00 mg calcium tablet (3 sources) Start: 03-31-2025 Start: 03-31-2025 Calcium Amino Acid Chelate 200 mg calcium tablet Active mg PO March 31, 2025 12:00am calcium ascorbate 500 mg oral tablet (11 sources) Start: 10-03-2022 take 1 tablet by mouth once daily cholecalciferol 0.625 mg oral capsule (3 sources) Vitamin D Start: 03-31-2025 take 1 capsule by mouth every week 1 ml denosumab 60 mg/ml prefilled syringe (1 source) RANK Ligand Inhibitor Start: 03-31-2025 Denosumab (Prolia) 60 mg/mL syringe (2 sources) Start: 03-31-2025 Denosumab (Prolia) 60 mg/mL syringe Active 60 mg SC every 6 months March 31, 2025 12:00am esomeprazole 20 mg delayed release oral capsule (20 sources) Proton Pump Inhibitor Start: 10-23-2018 take 2 capsules by mouth once daily Start: 10-23-2018 take 40 mg by mouth once daily Esomeprazole Magnesium Active 40 MG PO DAILY October 23, 2018 12:00am Start: 04-11-2017 take 1 tablet by rosamaria th once daily NEXIUM 40 MG PACK One tablet by mouth daily ESOMEPRAZOLE MAGNESIUM [id number] Stephanie Dacosta MD Start: 08-04-2013 End: 08-27-2018 take 1 capsule by mouth once daily Esomeprazole Magnesium 40 MG capsule Discontinued 40 mg PO DAILY August 04, 2013 1:00am August 27, 2018 12:07pm 24 hr fesoterodine fumarate 8 mg extended release oral tablet (10 sources) Start: 03-31-2025 take 1 tablet by rosamaria th once daily Start: 11-14-2023 End: 03-31-2025 take 1 tablet by mouth once daily Fesoterodine 4 mg tablet extended release 24 hr Discontinued 4 mg PO DAILY November 14, 2023 12:00am March 31, 2025 1:22pm fluticasone propionate 0.05 mg/actuat metered dose nasal spray (20 sources) Corticosteroid Start: 11-02-2021 Start: 10-23-2018 End: 11-02-2021 Fluticasone Propionate 50 MC G spray,suspension Discontinued 2 NMA INHALATION DAILY October 23, 2018 1:00am November 02, 2021 11:42am Start: 10-23-2018 End: 11-02-2021 take 1 spray(s) by inhalation once daily Fluticasone Propionate Active 2 SPRAY INHALATION DAILY November 02, 2021 10:40am 12 hr guaiFENesin 600 mg extended release oral tablet (14 sources) Start: 11-02-2021 take 1 tablet by mouth once daily, then take 1 tablet by mouth every twelve hours magnesium gluconate 550 mg oral tablet (14 sources) Start: 11-02-2021 take 1 tablet by mouth once daily mecobalamin 1 mg chewable tablet (3 sources) Start: 03-31-2025 take 1 tablet by mouth once daily 24 hr mirabegron 50 mg extended release oral tablet (20 sources) beta3-Adrenergic Agonist Start: 06-06-2022 take 1 tablet by mouth once daily Start: 10-27-2020 End: 01-30-2022 take 1 tablet by mouth once daily Mirabegron (Myrbetriq) 50 mg tablet extended release 24 hr Discontinued 100 mg PO DAILY October 27, 2020 1:00am January 30, 2022 11:22am polyethylene glycol [id number] mg powder for oral solution (14 sources) Osmotic Laxative Start: 11-02-2021 warfarin sodium 1 mg oral tablet (20 sources) Vitamin K Antagonist Start: 10-27-2020 take 2 tablets by mouth once daily, then take 2.5 mg by mouth once daily Start: 10-27-2020 take 2 mg by mouth o nce daily, then take 2.5 mg by mouth once daily Warfarin Active 0 PO DAILY October 27, 2020 1:19pm 2mg -w-, 2.5mg other days PO daily; Start: 08-11-2020 [...] 2 MG TABS as directed WARFARIN SODIUM [id number] Stephanie Dacosta MD Start: 02-04-2017 End: 08-27-2018 take 1 [...] / HYDROcodone bitartrate 5 mg oral tablet (14 sources) Opioid Agonist Start: 08-04-2013 End: 08-08-2013 Hydrocodone-Acetam inophen (Vicodin 5-300 Mg Tablet) 1 EACH tablet Discontinued 1 - 2 {tbl} PO EVERY 4 HOURS NEEDED as needed for Mod-Severe (Pain Scale 6-10) August 04, 2013 1:00am August 08, 2013 8:11am cefdinir 300 mg oral capsule (16 sources) Cephalosporin Antibacterial Start: 04-11-2017 take 1 tablet by mouth once daily CEFDINIR 300 MG CAPS One tablet by mouth daily CEFDINIR [id number] Stephanie Dacosta MD Start: 02-05-2017 End: 08-27-2018 take 1 capsule by mouth every twelve hours Cefdinir 300 MG capsule Discontinued 300 mg PO Q12H February 05, 2017 12:00am August 27, 2018 12:07pm cephalexin 500 mg oral capsule (20 sources) Cephalosporin Antibacterial Start: 09-21-2024 End: 12-02-2024 [...] 2020 1:02am ciprofloxacin 500 mg oral tablet (14 sources) Quinolone Antimicrobial Start: 08-11-2020 End: 08-21-2020 take 1 tablet by mouth twice daily Ciprofloxacin Hcl 500 mg tablet Discontinued 500 mg PO TWICE A DAY 20 10 0 August 11, 2020 1:00am August 20, 2020 1:00am August 21, 2020 1:03am clindamycin 20 mg/ml vaginal cream (11 sources) Lincosamide Antibacterial Start: 10-03-2022 End: 10-08-2022 [...] 2020 1:00am August 02, 2021 12:12pm FLUTICASONE-SALMETEROL (16 sources) Corticosteroid, beta2-Adrenergic Agonist Start: 04-11-2017 ADVAIR DISKUS 100-50 MCG/DOSE AEPB as directed FLUTICASONE-SALMETEROL [id number] Stephanie Dacosta MD Start: 08-04-2013 End: 07-12-2020 take 1 [...] 2020 12:58pm loratadine 10 mg oral tablet (14 sources) Start: 10-27-2020 End: 11-02-2021 take 1 tablet by mouth once daily Loratadine (Claritin) 10 mg tablet Discontinued 10 mg PO DAILY October 27, 2020 1:00am November 02, 2021 11:40am meclizine hydrochloride 25 mg oral tablet (13 sources) Antiemetic Start: 05-02-2022 End: 03-31-2025 take 1 tablet by mouth three times daily as needed for dizziness Meclizine 25 mg tablet Discontinued 25 mg PO THREE TIMES A DAY as needed for dizziness 30 0 May 02, 2022 12:00am March 31, 2025 1:21pm Miscellaneous Medical Supply misc (7 sources) Start: 12-10-2018 End: 08-02-2021 Miscellaneous Medical Supply misc Discontinued 0 .ROUTE .MEDSUPPLY 12 0 December 10, 2018 12:00am August 02, 2021 [...] available. ondansetron 4 mg disintegrating oral tablet (7 sources) Serotonin-3 Receptor Antagonist Start: 09-21-19 End: [...] th once daily DITROPAN XL 5 MG DP90F-LLE One tablet by mouth daily OXYBUTYNIN CHLORIDE [id number] Stephanie Dacosta MD Start: 12-06-2016 End: 08-27-2018 take 1 tablet by mouth twice daily Oxybutynin Chloride 5 MG tablet Discontinued 5 mg PO TWICE A DAY December 06, 2016 12:00am August 27, 2018 12:07pm oxyCODONE hydrochloride 5 mg oral tablet (14 sources) Opioid Agonist Start: 10-24-2018 End: 10-27-2018 [...] knee phenazopyridine hydrochloride 100 mg oral tablet (14 sources) Start: 08-02-2021 End: 11-02-2021 take 1 [...] October 03, 2022 2:59pm 5 days SUCRALFATE (16 sources) Aluminum Complex Start: 04-11-2017 take 1 tablet by mouth once daily CARAFATE 1 GM TABS One tablet by mouth daily SUCRALFATE [id number] Stephanie Dacosta MD Start: 02-05-2017 End: 03-11-2019 take 1 tablet by mouth 1 hour(s) before mealtime Sucralfate 1 GM tablet Discontinued 1 g PO ONE HOURS BEFORE MEALS & BED 120 0 February 05, 2017 12:00am March 11, 2019 10:39am sulfamethoxazole 800 mg / trimethoprim 160 mg oral tablet (14 sources) Dihydrofolate Reductase Inhibitor Antibacterial, Sulfonamide Antimicrobial Start: 07-14-2020 End: 07-14-2020 Sulfamethoxazole-Trimethopri m 800-160 mg tablet Discontinued 1 {tbl} PO TWICE A DAY 10 5 0 July 14, 2020 1:00am July 18, 2020 1:00am July 14, 2020 10:35am Start: 07-14-2020 End: 07-14-2020 take 1 tablet by mouth twice daily Sulfamethoxazole-Trimethoprim Discontinu ed 1 TABLET PO TWICE A DAY 10 5 July 14, 2020 12:00am July 14, 2020 9:35am Vibegron (14 sources) Start: 01-30-2022 End: 03-31-2025 take 1 [...] Date Documented Da te Episodic/Chronic Abdominal pain (15 sources) Unspecified abdominal pain; Translations: [Abdominal pain] Onset: 7 10-24-2018 Episodic Asthma (14 sources) Asthma; Translations: [Unspecified asthma, uncomplicated] 10-24-2018 Chronic Chronic ulcer of skin (14 sources) Pressure ulcer of unspecified site, stage 2; Translations: [Pressure injury, stage 2] 11-12-2019 Chronic Coagulation and hemorrhagic disorders (20 sources) Lupus anticoagulant disorder; Translations: [Blood coagulation disorder] Onset: 5 10-24-2018 Chronic Conditions associated with dizziness or vertigo (20 sources) Lightheadedness; Translations: [Dizziness and giddiness] 05-10-2022 Episodic Deficiency and other anemia (14 sources) Microcytic anemia; Translations: [Iron deficiency anemia, unspecified] 10-24-2018 Episodic Deficiency and other anemia (1 source) Anemia, unspecified; Translations: [Anemia, unspecified] Onset: 5 Episodic Gastrointestinal hemorrhage (14 sources) Gastrointestinal hemorrhage; Translations: [Gastrointestinal hemorrhage, unspecified] 10-17-2015 Episodic Genitourinary symptoms and ill-defined conditions (20 sources) Incontinence; Translations: [Unspecified urinary incontinence] Onset: 4 12-10-2018 Chronic Comment on above: See Dr Guajardo Genitourinary symptoms and ill-defined conditions (9 sources) Nocturia; Translations: [Nocturia] Onset: 5 03-31-2025 Episodic Inflammatory diseases of female pelvic organs (2 sources) Acute vaginitis; Translations: [Vaginitis and vulvovaginitis, unspecified] 10-03-2022 Episodic Menopausal disorders (1 source) Unspecified menopausal and perimenopausal disorder; Translations: [Unspecified menopausal and perimenopausal disorder] Onset: 5 Chronic Nonspecific chest pain (14 sources) Atypical chest pain; Translations: [Other chest pain] 10-24-2018 Episodic Osteoarthritis (16 sources) Osteoarthritis; Translations: [Arthritis] Onset: 7 04-11-2017 Chronic Other non-traumatic joint disorders (14 sources) Pain in right knee; Translations: [Right knee pain] 11-11-2019 Episodic Other nutritional; endocrine; and metabolic disorders (14 sources) Morbid obesity; Translations: [Morbid (severe) obesity due to excess calories] 10-24-2018 Chronic Phlebitis; thrombophlebitis and thromboembolism (16 sources) Deep venous thrombosis; Translations: [Acute embolism [...] #3 ring with support and knob Syncope (14 sources) Near syncope; Translations: [Syncope and collapse] [...] Test Name Value Interpretation Reference Range Facility CBC-Complete Blood Cnt No Mallorie rachel 05-05-2025 Erythrocyte distribution width (RBC) [Ratio] 14.9 % High 11.6-14.6 [facility] Comment on above: Order Comment: Order Date: 10/28/24 Order Info: [id number] - CBC Performed By: #### L 100.0500, L503.6550, L503.6150 #### [facility] [address] [place], [address] Hematocrit (Bld) [Volume fraction] 33.6 % Low 37-47 [facility] Comment on above: Order Comment: Order Date: 10/28/24 Order Info: [id number] - CBC Performed By: #### L 100.0500, L503.6550, L503.6150 #### [facility] [address] [place], [address] Hemoglobin (Bld) [Mass/Vol] 10.3 g/dL Low 12.0-15.0 [facility] Comment on above: Order Comment: Order Date: 10/28/24 Order Info: [id number] - CBC Performed By: #### L 100.0500, L503.6550, L503.6150 #### [facility] [address] [place], [address] MCH (RBC) [Entitic mass] 27.5 pg Normal 27.0-32.0 [facility] Comment on above: Order Comment: Order Date: 10/28/24 Order Info: [id number] - CBC Performed By: #### L 100.0500, L503.6550, L503.6150 #### [facility] [address] [place], [address] MCHC (RBC) [Mass/Vol] 30.7 g/dL Low 32-36 [facility] Comment on above: Order Comment: Order Date: 10/28/24 Order Info: [id number] - CBC Performed By: #### L 100.0500, L503.6550, L503.6150 #### [facility] [address] [place], [address] MCV (RBC) [Entitic vol] 89.8 fL Normal 81-99 [facility] Comment on above: Order Comment: Order Date: 10/28/24 Order Info: [id number] - CBC Performed By: #### L 100.0500, L503.6550, L503.6150 #### [facility] [address] [place], [address] Platelet mean volume (Bld) [Entitic vol] 10.1 fL Normal 6.2-12.0 [facility] Comment on above: Order Comment: Order Date: 10/28/24 Order Info: [id number] - CBC Performed By: #### L 100.0500, L503.6550, L503.6150 #### [facility] [address] [place], [address] Platelets (Bld) [#/Vol] 253 10*3/uL Normal 150-450 [facility] Comment on above: Order Comment: Order Date: 10/28/24 Order Info: [id number] - CBC Performed By: #### L 100.0500, L503.6550, L503.6150 #### [facility] [address] [place], [address] RBC (Bld) [#/Vol] 3.74 10*6/uL Low 4.2-5.4 [facility] Comment on above: Order Comment: Order Date: 10/28/24 Order Info: [id number] - CBC Performed By: #### L 100.0500, L503.6550, L503.6150 #### [facility] [address] [place], [address] RDW SD 49.7 fl High 35.1-43.9 [facility] Comment on above: Order Comment: Order Date: 10/28/24 Order Info: [id number] - CBC Performed By: #### L 100.0500, L503.6550, L503.6150 #### [facility] [address] [place], [address] WBC (Bld) [#/Vol] 6.3 10*3/uL Normal 4.4-11.0 [facility] Comment on above: Order Comment: Order Date: 10/28/24 Order Info: [id number] - CBC Performed By: #### L 100.0500, L503.6550, L503.6150 #### [facility] [address] [place], [address] Erythrocyte distribution wid th ratioOrdered By: Litzy Vazquez on 05-05-2025 Erythrocyte distribution width (RBC) [Ratio] 14.9 % High 11.6-14.6 [facility] Erythrocyte distribution wid th standard deviationOrdered By: Litzy Vazquez on 05-05-2025 Erythrocyte distribution width (RBC) [Ratio] 49.7 fl High 35.1-43.9 [facility] Ferritinon 05-05-2025 Ferritin [Mass/Vol] 10 ng/mL Low 22-378 [facility] Comment on above: Order Comment: Order Date: 10/28/24 Order Info: [id number] - FE Order Info: [id number] - NIRMALA Performed By: #### L 100.0500, L503.6550, L503.6150 #### [facility] [address] [place], [address] Hematocrit Auto (Bld) [Volum e fraction]Ordered By: Litzy Vazquez on 05-05-2025 Hematocrit (Bld) [Volume fraction] 33.6 % Low 37-47 [facility] Hemoglobin measurementOrdere d By: Litzy Vazquez on 05-05-2025 Hemoglobin (Bld) [Mass/Vol] 10.3 g/dL Low 12.0-15.0 [facility] Ironon 05-05-2025 Iron [Mass/Vol] 22 ug/dL Low 50-170 [facility] Comment on above: Order Comment: Order Date: 10/28/24 Order Info: [id number] - FE Order Info: [id number] - NIRMALA Performed By: #### L 100.0500, L503.6550, L503.6150 #### [facility] [address] [place], [place], [id number] Iron measurement (mass/mass) Ordered By: Litzy Vazquez on 05-05-2025 Iron (Unsp spec) [Mass/Mass] 22 ug/dL Low 50-170 [facility] MCV (mean corpuscular volume ) determinationOrdered By: Litzy Vazquez on 05-05-2025 MCV (RBC) [Entitic vol] 89.8 fL 81-99 [facility] Mean corpuscular hemoglobin (MCH) determinationOrdered By: Litzy Vazquez on 05-05-2025 MCH (RBC) [Entitic mass] 27.5 pg 27.0-32.0 [facility] Mean corpuscular hemoglobin concentration (MCHC) determinationOrdered By: Litzy Vazquez on 05-05-2025 MCHC (RBC) [Mass/Vol] 30.7 g/dL Low 32-36 [facility] Mean platelet volume determi nationOrdered By: Litzy Vazquez on 05-05-2025 Platelet mean volume (Bld) [Entitic vol] 10.1 fL 6.2-12.0 [facility] Platelet countOrdered By: Bernardo Vazquez on 05-05-2025 Platelets (Bld) [#/Vol] 253 10*3/uL 150-450 [facility] RBC Auto (Bld) [#/Vol]Ordere d By: Litzy Vazquez on 05-05-2025 RBC (Bld) [#/Vol] 3.74 10*6/uL Low 4.2-5.4 [facility] Serum or plasma ferritin valdemar surement (mass/volume)Ordered By: Litzy Vazquez on 05-05-2025 Ferritin [Mass/Vol] 10 ng/mL Low 22-378 [facility] White blood cell (WBC) count Ordered By: Litzy Vazquez on 05-05-2025 WBC (Bld) [#/Vol] 6.3 10*3/uL 4.4-11.0 [facility] MR/Crispin 04-28-2025 MR/RC [facility] [address], [address] [place] [address] OFFICE VISIT Date of Service: 04/28/25 MR#: [id number] Acct: [id number] Name: SINDY SWEENEY Rep #: [id number] : 1945 Provider: Dr. Kiah Zimmerman i, MD Age/Sex: 79/F Location: [facility] Status: Signed Intake Vital Signs 03/31/25 13:29 04/28/25 10:57 Height 5 ft 5 in 5 ft 5 in Weight: 192 lb BMI 31.9 BP 118/78 Pulse 74 Temp 97.3 F L Intake Visit Reasons: ptns Chief Complaint: PTNS treatment Head Athletic Trainer Required: No Is patient in pain?: No [...] denosumab 60 mg/mL subcutaneous 60 mg subcut [id number] 03/31/2505/14 History syringe (Prolia) fesoterodine 8 mg [...] nodes Exa (more content not included)... Normal [facility] MR/BMS.[facility] 03-31-2025 MR/BMS.[facility] [address], [address] [place] [id number] OFFICE VISIT Date of Service: 03/31/25 MR#: [id number] Acct: [id number] Name: SINDY SWEENEY Rep #: [id number] : 1945 Provider: Dr. Kiah Zimmerman i, MD Age/Sex: 79/F Location: [facility] Status: Signed Intake Vital Signs 02/24/25 10:22 03/31/25 13:29 Height 5 ft 5 in 5 ft 5 in Weight: 195 lb BMI 32.4 BP 122/71 H Pulse 83 Temp 98.3 F Intake Visit Reasons: monthly PTNS Chief Complaint: PTNS treatment Head Athletic Trainer Required: No Is patient in pain?: No [...] denosumab 60 mg/mL subcutaneous 60 mg subcut [id number] 03/31/2508/13 History syringe (Prolia) fesoterodine 8 mg [...] lymph nod (more content not included)... Normal [facility] Protime w/INR Fingerstickon 03-03-2025 INR Coag (PPP) [Relative time] 2.0 {INR} Normal [facility] Comment on above: Result Comment: Crit ical Value > 4.0 Performed By: #### L 300.3900 #### [facility] [address] [place], [address] Protime Coagsen 22.5 SEC High 11.7-14.9 [facility] Comment on above: Performed By: #### L 300.3900 #### [facility] [address] [place], [place], [id number] International normalized rat io (INR) calculationOrdered By: Angelo Arias on 03-02-2025 INR Coag (Bld) [Relative time] 2.4 {INR} [facility] Prothrombin Time w/INRon INR Coag (PPP) [Relative time] 2.4 {INR} Normal [facility] Comment on above: Performed By: #### L 300.3900 #### [facility] [address] [place], [place], [id number] (286) PT Coag (PPP) [Time] 26.5 s High 11.7-14.9 [facility] [facility] Comment on above: Performed By: #### L 300.3900 #### [facility] [address] [place], [place], [address] Prothrombin timeOrdered By: Angelo Arias on 03-02-2025 PT Coag (PPP) [Time] 26.5 s High 11.7-14.9 [facility] International normalized rat io (INR) measurement by fingerstickOrdered By: Angelo Arias on 02-27-2025 INR Coag (BldC) [Relative time] 2.0 [facility] Comment on above: Critical Value > 4.0 Prothrombin Time w/INRon INR Normal [facility] Comment on above: Order Comment: Order Date: 02/24/25 Order Info: 6301-6 - PT Result Comment: DARI ERSTICK Performed By: #### L 300.3900 #### [facility] [address] [place], [place], [id number] PROTIME Normal 11.7-14.9 [facility] Comment on above: Order Comment: Order Date: 02/24/25 Order Info: 6301-6 - PT Result Comment: DARI ERSTICK Performed By: #### L 300.3900 #### [facility] [address] [place], [place], [address] Whole blood prothrombin time Ordered By: Angelo Arias on 02-27-2025 PT Coag (Bld) [Time] 22.5 s High 11.7-14.9 [facility] Front End Technician Office Visit Reporton 02-24-2025 Front End Technician Office Visit Report [facility] [address], [address] [place] [address] OFFICE VISIT Date of Service: 02/24/25 MR#: [id number] Acct: [id number] Name: ZAHRAJAVIERJULIO CESARAna Cristina Shyla Rep #: [id number] : 1945 Provider: PATI villavicencio Age/Sex: 79/F Location: [facility] Status: Signed Intake Vital Signs 12/02/24 13:05 02/24/25 10:16 02/24/25 10:22 Height 5 ft 5 in 5 ft 5 in 5 ft 5 in Weight: 203 lb 2 oz BMI 33.7 BP 140/82 H Intake Visit Reasons: Pessary Check Chief Complaint: pessary check Head Athletic Trainer Required: No Is patient in pain?: No [...] home: Yes additional social history: - Max [facility] Pessary Check Details: SINDY SWEENEY is a 79 year old who presents for pessary check. Denies concerns. History 2 Elective abortions Hx Para 2 Spontaneous abortions Hx # Term Pregnancies Ectopic pregnancies Hx # Pregnancies Multiple births # of living children Past Pregnancies Del. Date Name GA/Weeks Outcome Route Bth Weight Gen Labor Lgth Anesthesia Del Locatn Provider FOB Unknown Kiah-1968 Unknown Charlie-1971 ROS Const Constitutional: Reports system reviewed and [...] Z46.89 Cystoc (more content not included)... Normal [facility] Front End Technician Office Visit Reporton 12-02-2024 Front End Technician Office Visit Report [facility] [address], [address] [place] [address] OFFICE VISIT Date of Service: 12/02/24 MR#: [id number] Acct: [id number] Name: SINDY SWEENEY Rep #: [id number] : 1945 Provider: PATI villavicencio Age/Sex: 79/F Location: [facility] Status: Signed Intake Vital Signs 09/21/24 07:10 12/02/24 12:59 12/02/24 13:05 Height 5 ft 5 in 5 ft 5 in 5 ft 5 in Weight: 195 lb BMI 32.4 BP 136/82 H Intake Visit Reasons: PESSARY CHECK Chief Complaint: Pessary check Head Athletic Trainer Required: No Is patient in pain?: No [...] home: Yes additional social history: - Max [facility] PESSARY CHECK Details: SINDY SWEENEY is a [...] Level of (more content not included)... Normal [facility] Breast Complete Unilateralon 10-21-2024 Breast Complete Unilateral [facility] Imaging Services [facility] [place], [place] [address] Breast Complete Unilateral MR#: [id number] Acct: [id number] Name: SINDY SWEENEY Rep #: [id number] : 1945 F 79 From: Linda Mcneill MD PCP: Dr. Litzy Vazquez MD Status: REG CLI Study: Breast Complete Unilateral Date of Exam: 10/21 Exam# [id number] Ordering Dr: Litzy Vazquez PROCEDURE: DIAG MAMM [...] code: Routine Follow-up Reading Location: [facility] CC: Dr. Litzy Vazquez MD Supply Tech: Signed Normal [facility] Breast imaging reportOrdered By: Linda Mcneill on 10-21-2024 Study report [facility] Imaging Services [address] [place] [address] [id number] DIAG MAMM W/CAD, UNILAT MR#: [id number] Acct: [id number] Name: SINDY SWEENEY Rep #: [id number] : 1945 F 79 From: Lily Mcneill MD PCP: Dr. iLtzy Vazquez MD Status: REG CLI Study:DIAG MAMM W/CAD, UNILAT Date of Exam: 10/21/24 Exam# [id number] Ordering Dr: Aakash Vazquez MD PROCEDURE: DIAG [...] code: Routine Follow-up Reading Location: [facility] CC: Dr. Litzy Vazquez MD ~ Supply Tech: Signed [facility] Study report [facility] Imaging Services [address] [place], [place] [id number] Lt Brst Unilat Bruno Add On MR#: [id number] Acct: [id number] Name: SINDY SWEENEY Rep #: [id number] : 1945 F 79 From: Lily Mcneill MD PCP: Dr. Litzy Vazquez MD Status: REG CLI Study:Lt Brst Unilat Bruno Add On Date of Exam : 10/21/24 Exam# [id number] Ordering Dr: Aakash Vazquez MD PROCEDURE: DIAG [...] code: Routine Follow-up Reading Location: [facility] CC: Dr. Litzy Vazquez MD ~ Supply Tech: Signed [facility] DIAG MAMM W/CAD, UNILATon DIAG MAMM W/CAD, UNILAT [facility] Imaging Services [address] [place], [place] [address] DIAG MAMM W/CAD, UNILAT MR#: [id number] Acct: [id number] Name: SINDY SWEENEY Rep #: [id number] : 1945 F 79 From: Linda Mcneill MD PCP: Dr. Litzy Vazquez MD Status: REG CLI Study: DIAG MAMM W/CAD, UNILAT Date of Exam: 10/21/24 Exam# [id number] Ordering Dr: Litzy Vazquez PROCEDURE: DIAG MAMM [...] code: Routine Follow-up Reading Location: [facility] CC: Dr. Litzy Vazquez MD Supply Tech: Signed Normal [facility] Lt Brst Unilat Bruno Add Onon 10-21-2024 Lt Brst Unilat Bruno Add On [facility] Imaging Services [address] [place], [place] [address] Lt Brst Unilat Bruno Add On MR#: [id number] Acct: [id number] Name: SINDY SWEENEY Rep #: [id number] : 1945 F 79 From: Linda Mcneill MD PCP: Dr. Litzy Vazquez MD Status: REG CLI Study: Lt Brst Unilat Bruno Add On Date of Exam: 10/21 Exam# [id number] Ordering Dr: Litzy Vazquez PROCEDURE: DIAG MAMM [...] code: Routine Follow-up Reading Location: [facility] CC: Dr. Litzy Vazquez MD Supply Tech: Signed Normal [facility] Dexa Bone Density/Append Ske jerome 10-08-2024 Dexa Bone Density/Append Skel [facility] Imaging Services [address] [place] [address] [id number] Dexa Bone Density/Append Skel MR#: [id number] Acct: [id number] Name: SINDY SWEENEY Rep #: [id number] : 1945 F 79 From: Sunitha Pepper PCP: Dr. Litzy Vazquez MD Status: [facility] Study: Dexa Bone Density/Append Skel Date of Exam: Exam# [id number] Ordering Dr: Litzy Vazquez PROCEDURE: DEXA BONE [...] is a trademark of the [employer]'s [employer] for Metabolic Bone Disease, World Health Organization (WHO) Collaborating [employer]. 1-The 10-year probability of fracture may be lower than reported if the patient has received treatment. 2-Major Osteoporotic Fracture: Clinical Spine, Forearm, Hip or Shoulder. The T-scores are also available for review on the [facility] PACS or by accessing the [facility] electronic medical record. BD/Dexa Bone Density/Append Skel IMPRESSION: OSTEOPOROSIS. Reading Location: [facility] CC: Dr. Litzy Vazquez MD Supply Tech: Signed Normal [facility] SCRN MAMM (CAD)W/BRUNO BILATo n 10-08-2024 SCRN MAMM (CAD)W/BRNUO BILAT [facility] Imaging Services [address] [place] [address] [id number] SCRN MAMM (CAD)W/BRUNO BILAT MR#: [id number] Acct: [id number] Name: SINDY SWEENEY Rep #: [id number] : 1945 F 79 From: Sunitha Pepper PCP: Dr. Litzy Vazquez MD Status: REG CLI Study: SCRN MAMM (CAD)W/BRUNO BILAT Date of Exam: 09/20 05/14 Exam# [id number] Ordering Dr: Litzy Vazquez PROCEDURE: SCRN MAMM [...] code: Additional Views obtained/call backs Reading Location: [facility] CC: Dr. Litzy Vazquez MD Supply Tech: Signed Normal [facility] Urine Cultureon 09-24-2024 URC Klebsiella pneumonia e sp pneum [place] Count 80,000-100,000 Klebsiella pneumoniae sp pneum: REACTION [...] TMP SMX Islt SIA <=20 S Normal [facility] Comment on above: Performed By: #### L 570.8436 #### [facility] [address] [place], [address] Absolute neutrophil countOrd ered By: Haseeb Solist on 09-21-2024 Neutrophils (Bld) [#/Vol] 11.0 10*3/uL High 2.0-7.7 [facility] Albumin to globulin ratioOrd ered By: Haseebjonathan Solist on 09-21-2024 Albumin/Globulin [Mass ratio] 1.1 {ratio} 0.9-2.4 [facility] Basophil percentageOrdered B y: Haseeb RoweJanellDev on 09-21-2024 Basophils/100 WBC (Bld) 0.2 % 0-1 [facility] Bilirubin Test strip Ql (U)O rdered By: Haseeb DumontalpaDev on 09-21-2024 Bilirubin Ql (U) Negative Negative [facility] Bilirubin, totalOrdered By: Community HealthJanellDev on 09-21-2024 Bilirubin [Mass/Vol] 0.60 mg/dL 0.20-1.00 [facility] Comment on above: For patients on eltr ombopag therapy, use of Dimension Adolphus TBIL is not recommended. Blood urea nitrogen (BUN)/cr eatinine ratioOrdered By: Haseeb DumontalpaDev on 09-21-2024 Urea nitrogen/Creatinine [Mass ratio] 14.0 mg/mg 10-20 [facility] CBC W/Diff, Automatedon Absolute Lymph 0.39 X10 3/uL Low 0.83-4.51 [facility] Comment on above: Performed By: #### M 100.678 #### [facility] [address] [place], [address] Absolute Neut 11.0 X10 3/uL High 2.0-7.7 [facility] Comment on above: Performed By: #### M 100.678 #### [facility] [address] [place], [address] Basophils/100 WBC (Bld) 0.2 % Normal 0-1 [facility] Comment on above: Performed By: #### M 100.678 #### [facility] [address] [place], [address] Eosinophils/100 WBC (Bld) 0.0 % Normal 0-5 [facility] Comment on above: Performed By: #### M 100.678 #### [facility] [address] [place], [address] Erythrocyte distribution width (RBC) [Ratio] 13.2 % Normal 11.6-14.6 [facility] Comment on above: Performed By: #### M 100.678 #### [facility] [address] [place], [address] Hematocrit (Bld) [Volume fraction] 40.4 % Normal 37-47 [facility] Comment on above: Performed By: #### M 100.678 #### [facility] [address] [place], [address] Hemoglobin (Bld) [Mass/Vol] 13.0 g/dL Normal 12.0-15.0 [facility] Comment on above: Performed By: #### M 100.678 #### [facility] [address] [place], [address] IG% 0.700 Normal 0.0-0.9 [facility] Comment on above: Result Comment: IG% - Immature Granulocytes (promyelocytes, myelocytes and metamyelocytes) > 1% indicates that a LEFT SHIFT is Present. Performed By: #### M 100.678 #### [facility] [address] [place], [address] Lymphocytes/100 WBC (Bld) 3.4 % Low 19-41 [facility] Comment on above: Performed By: #### M 100.678 #### [facility] [address] [place], [address] MCH (RBC) [Entitic mass] 30.9 pg Normal 27.0-32.0 [facility] Comment on above: Performed By: #### M 100.678 #### [facility] [address] [place], [address] MCHC (RBC) [Mass/Vol] 32.2 g/dL Normal 32-36 [facility] Comment on above: Performed By: #### M 100.678 #### [facility] [address] [place], [address] MCV (RBC) [Entitic vol] 96.0 fL Normal 81-99 [facility] Comment on above: Performed By: #### M 100.678 #### [facility] [address] [place], [address] Monocytes/100 WBC (Bld) 1.0 % Normal 0-10 [facility] Comment on above: Performed By: #### M 100.678 #### [facility] [address] [place], [address] Neutrophils/100 WBC (Bld) 94.7 % High 47-70 [facility] Comment on above: Performed By: #### M 100.678 #### [facility] [address] [place], [address] Nucleated RBC (Bld) [#/Vol] 0 10*3/uL Normal 0-5 [facility] Comment on above: Performed By: #### M 100.678 #### [facility] [address] [place], [address] Platelet mean volume (Bld) [Entitic vol] 9.5 fL Normal 6.2-12.0 [facility] Comment on above: Performed By: #### M 100.678 #### [facility] [address] [place], [address] Platelets (Bld) [#/Vol] 169 10*3/uL Normal 150-450 [facility] Comment on above: Performed By: #### M 100.678 #### [facility] [address] [place], [address] RBC (Bld) [#/Vol] 4.21 10*6/uL Normal 4.2-5.4 [facility] Comment on above: Performed By: #### M 100.678 #### [facility] [address] [place], [address] RDW SD 46.1 fl High 35.1-43.9 [facility] Comment on above: Performed By: #### M 100.678 #### [facility] [address] [place], [address] WBC (Bld) [#/Vol] 11.6 10*3/uL High 4.4-11.0 [facility] Comment on above: Performed By: #### M 100.678 #### [facility] [address] [place], [address] Carbon dioxide measurementOr dered By: Haseeb Morales on 09-21-2024 CO2 [Moles/Vol] 25.0 mmol/L 21.0-32.0 [facility] Chest PA and Lateralon 09-21 Chest PA and Lateral [facility] Imaging Services [address] [place], [place] [id number] Chest PA and Lateral MR#: [id number] Acct: [id number] Name: SINDY SWEENEY Rep #: [id number] : 1945 F 79 From: Doc Herrera MD PCP: Dr. Litzy Vazquez MD Status: [facility] ER Study: Chest PA and Lateral Date of Exam: 09/21/24 Exam# [id number] Ordering Dr: Haseeb Morales DO PROCEDURE: CHEST [...] the left base are nonspecific. Reading Location: [facility] CC: Dr. Haseeb Morales DO; Dr. Litzy Vazquez MD Supply Tech: Signed Normal [facility] Chloride measurementOrdered By: Haseeb Morales on 09-21-2024 Chloride [Moles/Vol] 105 mmol/L 98-107 [facility] Comprehensive Metabolic Prof ilon 09-21-2024 Albumin [Mass/Vol] 3.6 g/dL Normal 3.2-5.0 [facility] Comment on above: Order Comment: 'TROP ' Serial specimen #1, #2 or #3: 1 Performed By: #### M 100.678 #### [facility] [address] [place], [address] Albumin/Globulin [Mass ratio] 1.1 {ratio} Normal 0.9-2.4 [facility] Comment on above: Order Comment: 'TROP ' Serial specimen #1, #2 or #3: 1 Performed By: #### M 100.678 #### [facility] [address] [place], [address] ALK P 78 U/L Normal 45-117 [facility] Comment on above: Order Comment: 'TROP ' Serial specimen #1, #2 or #3: 1 Performed By: #### M 100.678 #### [facility] [address] [place], [address] ALT [Catalytic activity/Vol] 16 U/L Normal 13-56 [facility] Comment on above: Order Comment: 'TROP ' Serial specimen #1, #2 or #3: 1 Performed By: #### M 100.678 #### [facility] [address] [place], [address] AST [Catalytic activity/Vol] 17 U/L Normal 15-37 [facility] Comment on above: Order Comment: 'TROP ' Serial specimen #1, #2 or #3: 1 Performed By: #### M 100.678 #### [facility] [address] [place], [address] Bilirubin [Mass/Vol] 0.60 mg/dL Normal 0.20-1.00 [facility] Comment on above: Order Comment: 'TROP ' Serial specimen #1, #2 or #3: 1 Result Comment: For patients on eltrombopag therapy, use of Dimension Adolphus TBIL is not recommended. Performed By: #### M 100.678 #### [facility] [address] [place], [address] BUN/CRE 14.0 RATIO Normal 10-20 [facility] Comment on above: Order Comment: 'TROP ' Serial specimen #1, #2 or #3: 1 Performed By: #### M 100.678 #### [facility] [address] [place], [address] CA,Total 9.1 mg/dL Normal 8.5-10.1 [facility] Comment on above: Order Comment: 'TROP ' Serial specimen #1, #2 or #3: 1 Performed By: #### M 100.678 #### [facility] [address] [place], [address] Chloride [Moles/Vol] 105 mmol/L Normal 98-107 [facility] Comment on above: Order Comment: 'TROP ' Serial specimen #1, #2 or #3: 1 Performed By: #### M 100.678 #### [facility] [address] [place], [address] CO2 [Moles/Vol] 25.0 mmol/L Normal 21.0-32.0 [facility] Comment on above: Order Comment: 'TROP ' Serial specimen #1, #2 or #3: 1 Performed By: #### M 100.678 #### [facility] [address] [place], [address] Creatinine [Mass/Vol] 0.79 mg/dL Normal 0.55-1.02 [facility] Comment on above: Order Comment: 'TROP ' Serial specimen #1, #2 or #3: 1 Result Comment: The validity of the calculated GFR GFRAA in patients over 70 years has not been determined. Clinical correlation is essential. Performed By: #### M 100.678 #### [facility] [address] [place], [address] ECRCL 63.59 ml/min Normal [facility] Comment on above: Order Comment: 'TROP ' Serial specimen #1, #2 or #3: 1 Performed By: #### M 100.678 #### [facility] [address] [place], [address] EST GFR - AA 90 mL/min Normal >60 [facility] Comment on above: Order Comment: 'TROP ' Serial specimen #1, #2 or #3: 1 Result Comment: Afri can Welsh GFR Calc Performed By: #### M 100.678 #### [facility] [address] [place], [address] GAP 7 Normal 5-15 [facility] Comment on above: Order Comment: 'TROP ' Serial specimen #1, #2 or #3: 1 Performed By: #### M 100.678 #### [facility] [address] [place], [address] GFR/1.73 sq M.predicted among non-blacks MDRD (S/P/Bld) [Vol rate/Area] 74 mL/min/{1.73_m2} Normal >60 [facility] Comment on above: Order Comment: 'TROP ' Serial specimen #1, #2 or #3: 1 Result Comment: Non- GFR Calc Performed By: #### M 100.678 #### [facility] [address] [place], [address] Globulin (S) [Mass/Vol] 3.3 g/dL Normal 2.2-4.2 [facility] Comment on above: Order Comment: 'TROP ' Serial specimen #1, #2 or #3: 1 Performed By: #### M 100.678 #### [facility] [address] [place], [address] Glucose [Mass/Vol] 114 mg/dL High 74-106 [facility] Comment on above: Order Comment: 'TROP ' Serial specimen #1, #2 or #3: 1 Result Comment: Fast ing Glucose result from 100 to 125 mg/dL suggests IMPAIRED HOMEOSTASIS per A.D.A. criteria. Performed By: #### M 100.678 #### [facility] [address] [place], [address] Potassium [Moles/Vol] 4.7 mmol/L Normal 3.5-5.1 [facility] Comment on above: Order Comment: 'TROP ' Serial specimen #1, #2 or #3: 1 Performed By: #### M 100.678 #### [facility] [address] [place], [address] Sodium [Moles/Vol] 137 mmol/L Normal 136-145 [facility] Comment on above: Order Comment: 'TROP ' Serial specimen #1, #2 or #3: 1 Performed By: #### M 100.678 #### [facility] [address] [place], [address] T PROT 6.9 g/dL Normal 6.4-8.2 [facility] Comment on above: Order Comment: 'TROP ' Serial specimen #1, #2 or #3: 1 Performed By: #### M 100.678 #### [facility] [address] [place], [address] Urea nitrogen [Mass/Vol] 11 mg/dL Normal 7-18 [facility] Comment on above: Order Comment: 'TROP ' Serial specimen #1, #2 or #3: 1 Performed By: #### M 100.678 #### [facility] [address] [place], [address] Emergency Department Summary on 09-21-2024 Emergency Department Summary [facility] Medical Records Department [address] [place] [address] Emergency Department Summary 09/21/24 MR#: [id number] Acct: [id number] Name: SINDY SWEENEY Rep #: [id number] : 1945 79 From: Haseeb Morales DO [...] intact Psych: Cooperative, appropriate mood and affect [facility] Medical History Knee injury Incontinence Phlebitis [...] 84 8 (more content not included)... Normal [facility] Eosinophil percentageOrdered By: Haseeb Morales on 09-21-2024 Eosinophils/100 WBC (Bld) 0.0 % 0-5 [facility] Epithelial cells.squamous LM Ql (Urine sed)Ordered By: Haseeb Morales on 09-21-2024 Epithelial cells.squamous LM.HPF (Urine sed) [#/Area] 0 /[HPF] 5-10 [facility] Erythrocyte distribution wid th ratioOrdered By: Haseeb Morales on 09-21-2024 Erythrocyte distribution width (RBC) [Ratio] 13.2 % 11.6-14.6 [facility] Erythrocyte distribution wid th standard deviationOrdered By: Haseeb Méndez on 09-21-2024 Erythrocyte distribution width (RBC) [Entitic vol] 46.1 fL High 35.1-43.9 [facility] Estimated glomerular filtrat ion rate (GFR) AmericanOrdered By: Haseeb Morales on 09-21-2024 Estimated GFR (MDRD) Amer 90 mL/min >60 [facility] Comment on above: GFR Calc Estimation of creatinine cynthia aranceOrdered By: Haseeb Morales on 09-21-2024 Estimated Creatinine Clearance Calc 63.59 ml/min [facility] Glomerular filtration rate ( GFR) estimationOrdered By: Haseeb Morales on 09-21-2024 Estimated GFR (MDRD) Non-Af Amer 74 mL/min >60 [facility] Comment on above: Non- GFR Calc Glucose Ql (U)Ordered By: Mehran Morales on 09-21-2024 Urine Glucose (UA) Normal mg/dl Normal [facility] Glucose measurementOrdered B y: Haseeb Morales on 09-21-2024 Glucose [Mass/Vol] 114 mg/dL High 74-106 [facility] Comment on above: Fasting Glucose resu lt from 100 to 125 mg/dL suggests IMPAIRED HOMEOSTASIS per A.D.A. criteria. Hematocrit Auto (Bld) [Volum e fraction]Ordered By: Haseeb Morales on 09-21-2024 Hematocrit (Bld) [Volume fraction] 40.4 % 37-47 [facility] Hemoglobin measurementOrdere d By: Haseeb Morales on 09-21-2024 Hemoglobin (Bld) [Mass/Vol] 13.0 g/dL 12.0-15.0 [facility] Immature granulocytes/100 WB C Auto (Bld)Ordered By: Haseeb Morales on 09-21-2024 Immature granulocytes/100 WBC (Bld) 0.700 % 0.0-0.9 [facility] Comment on above: IG% - Immature Granu locytes (promyelocytes, myelocytes and metamyelocytes) > 1% indicates that a LEFT SHIFT is Present. Influenza virus A and B and SARS-CoV-2 (COVID-19) and Respiratory syncytial virus RNAOrdered By: Haseeb Morales on 09-21-2024 SARS-CoV-2 (COVID-19) RNA CHRISTOPH+probe Ql (Unsp spec) [facility] Ketones Test strip Ql (U)Ord ered By: Haseeb Morales on 09-21-2024 Ketones Ql (U) Negative Negative [facility] L501.4020on 09-21-2024 TROPONIN-I HS 8 pg/mL Normal 3.0-54.0 [facility] Comment on above: Order Comment: 'TROP ' Serial specimen #1, #2 or #3: 1 Result Comment: Lindsey se Note: New Test Units and Gender Specific Reference Ranges. For more information see Policy Stat Procedure [employer] High Sensitivity Troponin (TNIH) and attachments. Performed By: #### M 100.678 #### [facility] [address] [place], [address] Laboratory - Chemistry and C hemistry - challengeOrdered By: Haseeb Morales on 09-21-2024 AST [Catalytic activity/Vol] 17 U/L 15-37 [facility] Lymphocytes Auto (Unsp spec) [#/Vol]Ordered By: Haseeb Morales on 09-21-2024 Lymphocytes (Bld) [#/Vol] 0.39 10*3/uL Low 0.83-4.51 [facility] Lymphocytes/100 WBC Auto (Un sp spec)Ordered By: Haseeb Morales on 09-21-2024 Lymphocytes/100 WBC (Bld) 3.4 % Low 19-41 [facility] M100.678on 09-21-2024 M100.678 Pending SARS-CoV-2 (COVID 19) Negative INFLUENZA A Negative INFLUENZA B Negative RSV PCR Negative Normal [facility] Comment on above: Performed By: #### M 100.678 #### [facility] [address] [place], [place], [address] MCV (mean corpuscular volume ) determinationOrdered By: Haseeb Morales on 02-02-2025 MCV (RBC) [Entitic vol] 96.0 fL 81-99 [facility] Mean corpuscular hemoglobin (MCH) determinationOrdered By: Haseeb Morales on 09-21-2024 MCH (RBC) [Entitic mass] 30.9 pg 27.0-32.0 [facility] Mean corpuscular hemoglobin concentration (MCHC) determinationOrdered By: Haseeb Morales on 09-21-2024 MCHC (RBC) [Mass/Vol] 32.2 g/dL 32-36 [facility] Mean platelet volume determi nationOrdered By: Haseeb Morales on 09-21-2024 Platelet mean volume (Bld) [Entitic vol] 9.5 fL 6.2-12.0 [facility] Microscopic analysis of urin e for red blood cells (RBC)Ordered By: Haseeb Morales on 09-21-2024 Urine RBC 5-10 SEEN /hpf 0-5 [facility] Monocyte percentageOrdered B y: Haseeb Morales on 09-21-2024 Monocytes/100 WBC (Bld) 1.0 % 0-10 [facility] Mucus LM Ql (Urine sed)Order ed By: Haseeb Morales on 09-21-2024 Mucus Ql (Urine sed) 0 SEEN /hpf [facility] Neutrophil percentageOrdered By: Haseeb Morales on 09-21-2024 Neutrophils/100 WBC (Bld) 94.7 % High 47-70 [facility] Nitrite Test strip Ql (U)Ord ered By: Haseeb Morales on 09-21-2024 Nitrite Ql (U) Negative Negative [facility] Nucleated red blood cell per centageOrdered By: Haseeb Morales on 09-21-2024 Nucleated RBC/100 WBC (Bld) [Ratio] 0 % 0-5 [facility] Platelet countOrdered By: Mehran Morales on 09-21-2024 Platelets (Bld) [#/Vol] 169 10*3/uL 150-450 [facility] Potassium measurementOrdered By: Haseeb Morales on 09-21-2024 Potassium [Moles/Vol] 4.7 mmol/L 3.5-5.1 [facility] Protein Test strip Ql (U)Ord ered By: Haseeb Morales on 09-21-2024 Protein Ql (U) 100 mg/dl High Negative [facility] RBC Auto (Bld) [#/Vol]Ordere d By: Haseeb Morales on 09-21-2024 RBC (Bld) [#/Vol] 4.21 10*6/uL 4.2-5.4 [facility] Serum anion gap measurementO rdered By: Haseeb Morales on 09-21-2024 Anion gap [Moles/Vol] 7 mmol/L 5-15 [facility] Serum globulin measurementOr dered By: Haseeb Morales on 09-21-2024 Globulin (S) [Mass/Vol] 3.3 g/dL 2.2-4.2 [facility] Serum or plasma alanine jerry otransferase (ALT) measurementOrdered By: Haseeb Morales on 09-21-2024 ALT [Catalytic activity/Vol] 16 U/L 13-56 [facility] Serum or plasma albumin devin urement (mass/volume)Ordered By: Haseeb Méndez on 09-21-2024 Albumin [Mass/Vol] 3.6 g/dL 3.2-5.0 [facility] Serum or plasma alkaline albaro sphatase measurementOrdered By: Haseeb Morales on 09-21-2024 ALP [Catalytic activity/Vol] 78 U/L 45-117 [facility] Serum or plasma calcium devin urement (mass/volume)Ordered By: Haseeb Méndez on 09-21-2024 Calcium [Mass/Vol] 9.1 mg/dL 8.5-10.1 [facility] Serum or plasma creatinine m easurement (mass/volume)Ordered By: Haseeb Méndez on 09-21-2024 Creatinine [Mass/Vol] 0.79 mg/dL 0.55-1.02 [facility] Comment on above: The validity of the calculated GFR & GFRAA in patients over 70 years has not been determined. Clinical correlation is essential. Serum or plasma urea nitroge n measurement (mass/volume)Ordered By: Haseeb Morales on 09-21-2024 Urea nitrogen [Mass/Vol] 11 mg/dL 7-18 [facility] Sodium levelOrdered By: Kushal Morales on 09-21-2024 Sodium [Moles/Vol] 137 mmol/L 136-145 [facility] Total proteinOrdered By: Rodolfo Morales on 09-21-2024 Protein [Mass/Vol] 6.9 g/dL 6.4-8.2 [facility] Troponin IOrdered By: Haseeb Morales on 09-21-2024 Troponin I High Sensitivity 8 pg/mL 3.0-54.0 [facility] Comment on above: Please Note: New Neftali t Units and Gender Specific Reference Ranges. For more information see Policy Stat Procedure Adolphus High Sensitivity Troponin (TNIH) and attachments. Urinalysis, Completeon 09-21 RBC 5-10 SEEN Normal 0-5 [facility] Comment on above: Order Comment: FAWN CTOR TO SPECIFY Performed By: #### L 400.0001 #### [facility] [address] [place], [address] BACTERIA 4+ /hpf Normal None Seen [facility] Comment on above: Order Comment: FAWN CTOR TO SPECIFY Performed By: #### L 400.0001 #### [facility] [address] [facility] [address] WBC >100 SEEN Normal 0-5 [facility] Comment on above: Order Comment: FAWN CTOR TO SPECIFY Performed By: #### L 400.0001 #### [facility] [address] [facility] [address] EPI,SQUAMOUS 0 SEEN Normal 5-10 [facility] Comment on above: Order Comment: FAWN CTOR TO SPECIFY Performed By: #### L 400.0001 #### [facility] [address] [place], [place], [address] Mucus Ql (Urine sed) 0 SEEN Normal [facility] Comment on above: Order Comment: FAWN PRITCHETTOR TO SPECIFY Performed By: #### L 400.0001 #### [facility] [address] [place], [place], [address] Urine blood detectionOrdered By: Haseeb Morales on 09-21-2024 Urine Occult Blood 150 /ul High Negative [facility] Urine clarityOrdered By: Rodolfo Morales on 09-21-2024 Clarity (U) Cloudy Clear [facility] Urine color determinationOrd ered By: Haseeb Morales on 09-21-2024 Color (U) Yellow Yellow [facility] Urine cultureOrdered By: Rodolfo Morales on 09-21-2024 Bacteria identified Cx Nom (U) Klebsiella pneumoniae sp pneum Abnormal [facility] Urine leukocyte esterase det ection by dipstickOrdered By: Haseeb Morales on 09-21-2024 Leukocyte esterase Test strip Ql (U) 100 /ul High Negative [facility] Urine pHOrdered By: Haseeb Humphries on 09-21-2024 pH (U) 6.5 [pH] 5.0 - 8.0 [facility] Urine sediment bacteria coun t by microscopy (number/high power field)Ordered By: Haseeb Morales on 09-21-2024 Bacteria LM.HPF (Urine sed) [#/Area] 4 /[HPF] None Seen [facility] Urine specific gravity measu rementOrdered By: Haseeb Morales on 09-21-2024 Specific gravity (U) [Rel density] 1.010 1.002-1.03 0 [facility] Urobilinogen Ql (U)Ordered B y: Haseeb Morales on 09-21-2024 Urine Urobilinogen Normal mg/dl Normal [facility] White blood cell (WBC) count Ordered By: Haseeb Morales on 09-21-2024 WBC (Bld) [#/Vol] 11.6 10*3/uL High 4.4-11.0 [facility] White blood cell countOrdere d By: Haseeb Morales on 09-21-2024 Urine WBC >100 SEEN /hpf 0-5 [facility] Front End Technician Office Visit Reporton 07-29-2024 Front End Technician Office Visit Report [facility] [address], [address] [place] [address] OFFICE VISIT Date of Service: 07/29/24 MR#: [id number] Acct: [id number] Name: SINDY SWEENEY Rep #: [id number] : 1945 Provider: PATI villavicencio Age/Sex: 78/F Location: [facility] Status: Signed Intake Vital Signs 04/15/24 13:33 07/29/24 11:11 07/29/24 11:18 Height 5 ft 5 in 5 ft 5 in 5 ft 5 in Weight: 200 lb BMI 33.3 BP 134/78 H Intake Visit Reasons: PESSARY CHECK Chief Complaint: Pessary check Head Athletic Trainer Required: No Is patient in pain?: No [...] home: Yes additional social history: - [facility] PESSARY CHECK Details: SINDY SWEENEY is a [...] stress incontinence (more content not included)... Normal [facility] CBC W/Diff, Automatedon 10-2 Absolute Lymph 1.08 X10 3/uL Normal 0.83-4.51 [facility] Comment on above: Order Comment: BMP G OES TO DR.WYNESKITHE FERNANDES GOES TO DR VAZQUEZ Performed By: #### M 100.678 #### [facility] [address] [place], [place], [id number] ([phone] Absolute Neut 6.6 X10 3/uL Normal 2.0-7.7 [facility] Comment on above: Order Comment: BMP G OES TO DR.WYNESKITHE FERNANDES GOES TO DR VAZQUEZ Performed By: #### M 100.678 #### [facility] [address] [place], [place], [phone] ([phone] Basophils/100 WBC (Bld) 0.2 % Normal 0-1 [facility] Comment on above: Order Comment: BMP G OES TO DR.WYNESKITHE FERNANDES GOES TO DR VAZQUEZ Performed By: #### M 100.678 #### [facility] [address] [place], [address] Eosinophils/100 WBC (Bld) 1.5 % Normal 0-5 [facility] Comment on above: Order Comment: BMP G OES TO DR.WYNESKITHE FERNANDES GOES TO DR VAZQUEZ Performed By: #### M 100.678 #### [facility] [address] [place], [address] Erythrocyte distribution width (RBC) [Ratio] 12.8 % Normal 11.6-14.6 [facility] Comment on above: Order Comment: BMP G OES TO DR.WYNESKITHE FERNANDES GOES TO DR VAZQUEZ Performed By: #### M 100.678 #### [facility] [address] [place], [address] Hematocrit (Bld) [Volume fraction] 38.7 % Normal 37-47 [facility] Comment on above: Order Comment: BMP G OES TO DR.WYNESKITHE FERNANDES GOES TO DR VAZQUEZ Performed By: #### M 100.678 #### [facility] [address] [place], [address] Hemoglobin (Bld) [Mass/Vol] 12.4 g/dL Normal 12.0-15.0 [facility] Comment on above: Order Comment: BMP G OES TO DR.WYNESKITHE FERNANDES GOES TO DR VAZQUEZ Performed By: #### M 100.678 #### [facility] [address] [place], [address] IG% 0.200 Normal 0.0-0.9 [facility] Comment on above: Order Comment: BMP G OES TO DR.WYNESKITHE FERNANDES GOES TO DR VAZQUEZ Result Comment: IG% - Immature Granulocytes (promyelocytes, myelocytes and metamyelocytes) > 1% indicates that a LEFT SHIFT is Present. Performed By: #### M 100.678 #### [facility] [address] [place], [address] Lymphocytes/100 WBC (Bld) 12.7 % Low 19-41 [facility] Comment on above: Order Comment: BMP G OES TO DR.WYNESKITHE FERNANDES GOES TO DR VAZQUEZ Performed By: #### M 100.678 #### [facility] [address] [place], [address] MCH (RBC) [Entitic mass] 31.0 pg Normal 27.0-32.0 [facility] Comment on above: Order Comment: BMP G OES TO DR.WYNESKITHE FERNANDES GOES TO DR VAZQUEZ Performed By: #### M 100.678 #### [facility] [address] [place], [address] MCHC (RBC) [Mass/Vol] 32.0 g/dL Normal 32-36 [facility] Comment on above: Order Comment: BMP G OES TO DR.WYNESKITHE FERNANDES GOES TO DR VAZQUEZ Performed By: #### M 100.678 #### [facility] [address] [place], [address] MCV (RBC) [Entitic vol] 96.8 fL Normal 81-99 [facility] Comment on above: Order Comment: BMP G OES TO DR.WYNESKITHE FERNANDES GOES TO DR VAZQUEZ Performed By: #### M 100.678 #### [facility] [address] [place], [address] Monocytes/100 WBC (Bld) 7.3 % Normal 0-10 [facility] Comment on above: Order Comment: BMP G OES TO DR.WYNESKITHE FERNANDES GOES TO DR VAZQUEZ Performed By: #### M 100.678 #### [facility] [address] [place], [address] Neutrophils/100 WBC (Bld) 78.1 % High 47-70 [facility] Comment on above: Order Comment: BMP G OES TO DR.WYNESKITHE FERNANDES GOES TO DR VAZQUEZ Performed By: #### M 100.678 #### [facility] [address] [place], [address] Nucleated RBC (Bld) [#/Vol] 0 10*3/uL Normal 0-5 [facility] Comment on above: Order Comment: BMP G OES TO DR.WYNESKITHE FERNANDES GOES TO DR VAZQUEZ Performed By: #### M 100.678 #### [facility] [address] [place], [address] Platelet mean volume (Bld) [Entitic vol] 9.1 fL Normal 6.2-12.0 [facility] Comment on above: Order Comment: BMP G OES TO DR.WYNESKITHE FERNANDES GOES TO DR VAZQUEZ Performed By: #### M 100.678 #### [facility] [address] [place], [address] Platelets (Bld) [#/Vol] 238 10*3/uL Normal 150-450 [facility] Comment on above: Order Comment: BMP G OES TO DR.WYNESKITHE FERNANDES GOES TO DR VAZQUEZ Performed By: #### M 100.678 #### [facility] [address] [place], [address] RBC (Bld) [#/Vol] 4.00 10*6/uL Low 4.2-5.4 [facility] Comment on above: Order Comment: BMP G OES TO DR.WYNESKITHE FERNANDES GOES TO DR VAZQUEZ Performed By: #### M 100.678 #### [facility] [address] [place], [address] RDW SD 46.2 fl High 35.1-43.9 [facility] Comment on above: Order Comment: BMP G OES TO DR.WYNESKITHE FERNANDES GOES TO DR VAZQUEZ Performed By: #### M 100.678 #### [facility] [address] [place], [address] WBC (Bld) [#/Vol] 8.5 10*3/uL Normal 4.4-11.0 [facility] Comment on above: Order Comment: BMP G OES TO DR.WYNESKITHE FERNANDES GOES TO DR VAZQUEZ Performed By: #### M 100.678 #### [facility] [address] [place], [address] Comprehensive Metabolic Prof ilon 06-12-2024 Albumin [Mass/Vol] 3.7 g/dL Normal 3.2-5.0 [facility] Comment on above: Order Comment: Order Date: 06/12/24Order Info: 666-08 - BMPBMP GOES TO DR.WYNESKITHE FERNANDES GOES TO DR VAZQUEZ Performed By: #### M 100.678 #### [facility] [address] [place], [address] Albumin/Globulin [Mass ratio] 1.3 {ratio} Normal 0.9-2.4 [facility] Comment on above: Order Comment: Order Date: 06/12/24Order Info: 666-08 - BMPBMP GOES TO DR.WYNESKITHE FERNANDES GOES TO DR VAZQUEZ Performed By: #### M 100.678 #### [facility] [address] [place], [address] ALK P 71 U/L Normal 45-117 [facility] Comment on above: Order Comment: Order Date: 06/12/24Order Info: 666-08 - BMPBMP GOES TO DR.WYNESKITHE FERNANDES GOES TO DR VAZQUEZ Performed By: #### M 100.678 #### [facility] [address] [place], [address] ALT [Catalytic activity/Vol] 34 U/L Normal 13-56 [facility] Comment on above: Order Comment: Order Date: 06/12/24Order Info: 666-08 - BMPBMP GOES TO DR.WYNESKITHE FERNANDES GOES TO DR VAZQUEZ Performed By: #### M 100.678 #### [facility] [address] [place], [phone] [Catalytic activity/Vol] 37 U/L Normal 15-37 [facility] Comment on above: Order Comment: Order Date: 06/12/24Order Info: 666-08 - BMPBMP GOES TO DR.WYNESKITHE FERNANDES GOES TO DR VAZQUEZ Performed By: #### M 100.678 #### [facility] [address] [place], [phone] (793) Bilirubin [Mass/Vol] 0.40 mg/dL Normal 0.20-1.00 [facility] Comment on above: Order Comment: Order Date: 06/12/24Order Info: 666-08 - BMPBMP GOES TO DR.WYNESKITHE FERNANDES GOES TO DR VAZQUEZ Result Comment: For patients on eltrombopag therapy, use of Dimension Adolphus TBIL is not recommended. Performed By: #### M 100.678 #### [facility] [address] [place], [place], [phone] ([address] BUN/CRE 18.2 RATIO Normal 10-20 [facility] Comment on above: Order Comment: Order Date: 06/12/24Order Info: 666-08 - BMPBMP GOES TO DR.WYNESKITHE FERNANDES GOES TO DR VAZQUEZ Performed By: #### M 100.678 #### [facility] [address] [place], [address] CA,Total 9.5 mg/dL Normal 8.5-10.1 [facility] Comment on above: Order Comment: Order Date: 06/12/24Order Info: 666-08 - BMPBMP GOES TO DR.WYNESKITHE FERNANDES GOES TO DR VAZQUEZ Performed By: #### M 100.678 #### [facility] [address] [place], [address] ([address] Chloride [Moles/Vol] 102 mmol/L Normal 98-107 [facility] Comment on above: Order Comment: Order Date: 06/12/24Order Info: 666-08 - BMPBMP GOES TO DR.WYNESKITHE FERNANDES GOES TO DR VAZQUEZ Performed By: #### M 100.678 #### [facility] [address] [place], [place], [address] CO2 [Moles/Vol] 31.0 mmol/L Normal 21.0-32.0 [facility] Comment on above: Order Comment: Order Date: 06/12/24Order Info: 666-08 [address]BMP GO[address] DR.WYNESKITHE FERNANDES GOES TO DR VAZQUEZ Performed By: #### M 100.678 #### [facility] [address] [place], [address] Creatinine [Mass/Vol] 0.82 mg/dL Normal 0.55-1.02 [facility] Comment on above: Order Comment: Order Date: 06/12/24Order Info: 666-08 BMPBMP GO[address] TO DR.WYNESKITHE FERNANDES GOES TO DR VAZQUEZ Result Comment: The validity of the calculated GFR GFRAA in patients over 70 years has not been determined. Clinical correlation is essential. Performed By: #### M 100.678 #### [facility] [address] [place], [address] EST GFR - AA 86 mL/min Normal >60 [facility] Comment on above: Order Comment: Order Date: 06/12/24Order Info: 666-08 - BMPBMP GOES TO DR.WYNESKITHE FERNANDES GOES TO DR VAZQUEZ Result Comment: Afri can Welsh GFR Calc Performed By: #### M 100.678 #### [facility] [address] [place], [address] GAP 4 Low 5-15 [facility] Comment on above: Order Comment: Order Date: 06/12/24Order Info: 666-08 - BMPBMP GOES TO DR.WYNESKITHE FERNANDES GOES TO DR VAZQUEZ Performed By: #### M 100.678 #### [facility] [address] [place], [address] GFR/1.73 sq M.predicted among non-blacks MDRD (S/P/Bld) [Vol rate/Area] 71 mL/min/{1.73_m2} Normal >60 [facility] Comment on above: Order Comment: Order Date: 06/12/24Order Info: 666-08 - BMPBMP GOES TO DR.WYNESKITHE FERNANDES GOES TO DR VAZQUEZ Result Comment: Non- GFR Calc Performed By: #### M 100.678 #### [facility] [address] [place], [address] Globulin (S) [Mass/Vol] 2.9 g/dL Normal 2.2-4.2 [facility] Comment on above: Order Comment: Order Date: 06/12/24Order Info: 666-08 - BMPBMP GOES TO DR.WYNESKITHE FERNANDES GOES TO DR VAZQUEZ Performed By: #### M 100.678 #### [facility] [address] [place], [address] Glucose [Mass/Vol] 98 mg/dL Normal 74-106 [facility] Comment on above: Order Comment: Order Date: 06/12/24Order Info: 666-08 - BMPBMP GOES TO REST GOES TO DR VAZQUEZ Performed By: #### M 100.678 #### [facility] [address] [place], [address] Potassium [Moles/Vol] 4.2 mmol/L Normal 3.5-5.1 [facility] Comment on above: Order Comment: Order Date: 06/12/24Order Info: 666-08 - BMPBMP GOES TO DR.WYNESKITHE FERNANDES GOES TO DR VAZQUEZ Performed By: #### M 100.678 #### [facility] [address] [place], [address] Sodium [Moles/Vol] 138 mmol/L Normal 136-145 [facility] Comment on above: Order Comment: Order Date: 06/12/24Order Info: 666-08 - BMPBMP GOES TO DR.WYNESKITHE FERNANDES GOES TO DR VAZQUEZ Performed By: #### M 100.678 #### [facility] [address] [place], [id number] T PROT 6.6 g/dL Normal 6.4-8.2 [facility] Comment on above: Order Comment: Order Date: 06/12/24Order Info: 666-08 - BMPBMP GOES TO DR.WYNESKITHE FERNANDES GOES TO DR VAZQUEZ Performed By: #### M 100.678 #### [facility] [address] [place], [id number] Urea nitrogen [Mass/Vol] 15 mg/dL Normal 7-18 [facility] Comment on above: Order Comment: Order Date: 06/12/24Order Info: 666-08 - BMPBMP GOES TO DR.WYNESKITHE FERNANDES GOES TO DR VAZQUEZ Performed By: #### M 100.678 #### [facility] [address] [place], [id number] Ferritinon 06-12-2024 Ferritin [Mass/Vol] 23 ng/mL Normal 8-252 [facility] Comment on above: Order Comment: Order Date: 06/12/24Order Info: 666-08 - BMPBMP GOES TO DR.WYNESKITHE FERNANDES GOES TO DR VAZQUEZ Performed By: #### L 300.3900 #### [facility] [address] [place], [address] Ironon 06-12-2024 Iron [Mass/Vol] 36 ug/dL Low 50-170 [facility] Comment on above: Order Comment: Order Date: 06/12/24Order Info: 666-08 - BMPBMP GOES TO DR.WYNESKITHE FERNANDES GOES TO DR VAZQUEZ Performed By: #### L 300.3900 #### [facility] [address] [place], [place], [id number] L501.2276on 06-12-2024 Ionized Calcium 4.87 mg/dL Normal 4.36-5.20 [facility] Comment on above: Performed By: #### L 501.2276 #### [facility] [address] [place], [place], [address] ([address] Lipid Profileon 06-12-2024 Cholesterol [Mass/Vol] 143 mg/dL Normal 200 [facility] Comment on above: Order Comment: Order Date: 06/12/24Order Info: 666-08 - BMPBMP GOES TO REST GOES TO DR VAZQUEZ Result Comment: <200 mg/dL Desirable 200-240 mg/dL Borderline >240 mg/dL High Risk Performed By: #### M 100.678 #### [facility] [address] [place], [address] Cholesterol in HDL [Mass/Vol] 68 mg/dL Normal [facility] Comment on above: Order Comment: Order Date: 06/12/24Order Info: 666-08 - BMPBMP GOES TO REST GOES TO DR VAZQUEZ Result Comment: The drugs N-Acetylcysteine and Metamizole may falsely depress this assay. Reference Range HDL <40 mg/dL Low HDL Cholesterol HDL >or= 60 mg/dL High HDL Cholesterol Performed By: #### M 100.678 #### [facility] [address] [place], [address] Cholesterol in LDL [Mass/Vol] 43 mg/dL Normal 0-130 [facility] Comment on above: Order Comment: Order Date: 06/12/24Order Info: 06- - BMPBMP GOES TO DR.WYNESKITHE FERNANDES GOES TO DR VAZQUEZ Performed By: #### M 100.678 #### [facility] [address] [place], [address] Cholesterol in VLDL [Mass/Vol] 32 mg/dL Normal 5-40 [facility] Comment on above: Order Comment: Order Date: 06/12/24Order Info: 666- - BMPBMP GOES TO DR.WYNESKITHE FERNANDES GOES TO DR VAZQUEZ Performed By: #### M 100.678 #### [facility] [address] [place], [address] Triglyceride [Mass/Vol] 161 mg/dL Normal [facility] Comment on above: Order Comment: Order Date: 06/12/24Order Info: 666-08 BMPBMP GOES TO DR.WYNESKITHE FERNANDES GOES TO DR VAZQUEZ Result Comment: The drugs N-Acetylcysteine and Metamizole may falsely depress this assay. Serum Triglycerides Reference Interval Normal <150 mg/dL Borderline high 150 - 199 mg/dL High 200 - 499 mg/dL Very High > or = 500 mg/dL Performed By: #### M 100.678 #### [facility] [address] [place], [address] Magnesiumon 06-12-2024 Magnesium [Mass/Vol] 2.0 mg/dL Normal 1.6-2.6 [facility] Comment on above: Order Comment: Order Date: 06/12/24Order Info: 666-[address]WYNESKITHE FERNANDES GOES TO DR VAZQUEZ Performed By: #### M 100.678 #### [facility] [address] [place], [address] PTHINon 06-12-2024 PTH 23.0 pg/mL Normal 18.4-80.1 [facility] Comment on above: Performed By: #### M 100.678 #### [facility] [address] [place], [address] Phosphoruson 06-12-2024 Phosphate [Mass/Vol] 4.9 mg/dL Normal 2.5-4.9 [facility] Comment on above: Order Comment: Order Date: 06/12/24Order Info: 666-[address]WYNESKITHE FERNANDES GOES TO DR VAZQUEZ Performed By: #### M 100.678 #### [facility] [address] [place], [address] Prothrombin Time w/INRon INR Coag (PPP) [Relative time] 1.6 {INR} Normal [facility] Comment on above: Order Comment: BMP G OES TO DR.WYNESKITHE FERNANDES GOES TO DR VAZQUEZ Performed By: #### L 300.3900 #### [facility] [address] [place], [address] PT Coag (PPP) [Time] 18.5 s High 11.7-14.9 [facility] Comment on above: Order Comment: BMP G OES TO DR.WYNESKITHE FERNANDES GOES TO DR VAZQUEZ Performed By: #### L 300.3900 #### [facility] [address] [place], [address] Retic Panelon 06-12-2024 IM RET FRACTION 7.00 Normal 3.00-15.90 [facility] Comment on above: Order Comment: BMP G OES TO DR.WYNESKITHE FERNANDES GOES TO DR VAZQUEZ Performed By: #### M 100.678 #### [facility] [address] [place], [address] RET-HE 32.8 pg Normal 30-35 [facility] Comment on above: Order Comment: BMP G OES TO DR.WYNESKITHE FERNANDES GOES TO DR VAZQUEZ Performed By: #### M 100.678 #### [facility] [address] [place], [address] Retic Count 1.58 High 0.5-1.5 [facility] Comment on above: Order Comment: BMP G OES TO DR.WYNESKITHE FERNANDES GOES TO DR VAZQUEZ Performed By: #### M 100.678 #### [facility] [address] [place], [address] Thyroid Stim Hormone (TSH)on 06-12-2024 TSH 1.440 uIU/mL Normal 0.358-3.74 0 [facility] Comment on above: Order Comment: Order Date: 06/12/24Order Info: 0667-1 - BMPBMP GOES TO DR.WYNESKITHE FERNANDES GOES TO DR VAZQUEZ Performed By: #### L 300.3900 #### [facility] [address] [place], [place], [id number] Vitamin B12on 06-12-2024 Cobalamin (Vitamin B12) [Mass/Vol] 1840 pg/mL High 211-911 [facility] Comment on above: Order Comment: BMP G OES TO DR.WYNESKITHE FERNANDES GOES TO DR VAZQUEZ Performed By: #### L 300.3900 #### [facility] [address] [place], [place], [id number] Vitamin D,25 Hydroxyon 06-12 Vitamin D 25-OH 71.2 ng/mL Normal [facility] Comment on above: Order Comment: BMP G OES TO DR.WYNESKITHE FERNANDES GOES TO DR VAZQUEZ Result Comment: Elaine min D 25(OH) Status Range Deficiency <20 ng/mL (50nmol/L) Insufficiency 20 - 30 ng/mL (50 - 75 nmol/L) Sufficiency 30 - 100 ng/mL (75 - 250 nmol/L) Toxicity >100 ng/mL (>250 nmol/L) Performed By: #### L 300.3909 #### [facility] [address] [place], [place], [id number] PT/INR DAILY PATIENT ON COUM ADINon 06-10-2024 INR Coag (PPP) [Relative time] 1.6 {INR} High 0.8 - 1.2 [facility] Comment on above: Result Comment: T HE [...] MECHANICAL HEART VALVES Performed By: #### 2 15791 #### [facility],[address] [place] [address] 06132 PT-COUMADIN 18.2 sec High 9.3 - 14.1 [facility] Comment on above: Performed By: #### 2 25953 #### [facility],[address] [place] [address] 29438 BMP with eGFRon 06-09-2024 AGE 78 years Normal [facility] Comment on above: Performed By: #### 2 51772 #### [facility],[address] [place] [address] 78078 Anion gap [Moles/Vol] 12 mmol/L Normal - [facility] Comment on above: Performed By: #### 2 95626 #### [facility],[address] [place] [address] 45243 BMP with eGFR Normal [facility] Comment on above: Result Comment: BASI C METABOLIC PANEL Performed By: #### 2 00526 #### [facility],[address] [place] [address] 49212 Calcium [Mass/Vol] 8.8 mg/dL Normal 8.5 - 10.1 [facility] Comment on above: Performed By: #### 2 70907 #### [facility],[address] [place] [address] 09437 Chloride [Moles/Vol] 107 mmol/L Normal 98 - 107 [facility] Comment on above: Performed By: #### 2 67986 #### [facility],[address] [place] [address] 92814 CO2 [Moles/Vol] 27.8 mmol/L Normal 21.0 - 32.0 [facility] Comment on above: Performed By: #### 2 60576 #### [facility],[address] [place] [address] 97006 Creatinine [Mass/Vol] 0.72 mg/dL Normal 0.55 - 1.02 [facility] Comment on above: Performed By: #### 2 71048 #### [facility],[address] [place] [address] 84806 GFR/1.73 sq M.predicted among non-blacks MDRD (S/P/Bld) [Vol rate/Area] mL/min/{1.73_m2} Normal 60 - 999 [facility] Comment on above: Performed By: #### 2 79852 #### [facility],[address] [place] [address] 02193 Result Comment: ACCO RDING TO THE NATIONAL KIDNEY DISEASE EDUCATION PROGRAM(NKDE), A NORMAL eGFR IS A VALUE GREATER THAN OR EQUAL TO 60 ML/MIN/1.73 SQ METERS. CHRONIC KIDNEY DISEASE: <60mL/MIN/1.73 SQ METERS KIDNEY FAILURE: <15mL/MIN/1.73 SQ METERS THIS TEST SHOULD ONLY BE USED FOR PATIENTS 18 YEARS OF AGE AND OLDER. Glucose [Mass/Vol] 92 mg/dL Normal 74 - 106 [facility] Comment on above: Performed By: #### 2 94748 #### [facility],[address] [place] [address] 76377 Potassium [Moles/Vol] 4.5 mmol/L Normal 3.5 - 5.1 [facility] Comment on above: Performed By: #### 2 70313 #### [facility],[address] [place] [address] 79488 Sodium [Moles/Vol] 142 mmol/L Normal 136 - 145 [facility] Comment on above: Performed By: #### 2 85189 #### [facility],[address] [place] [address] 46451 Urea nitrogen [Mass/Vol] 8 mg/dL Normal 7 - 18 [facility] Comment on above: Performed By: #### 2 12926 #### [facility],[address] [place] [address] 40262 MR CERVICAL SP WO CONTRASTon 06-09-2024 MR CERVICAL SP WO CONTRAST [place] [address] Patient: SINDY SWEENEY Phone#: : 1945 Age: 78 Gender: F Pt. Type: Out Account: [id number] Location: 010 Ordering: DR. MUSTAPHA COLLINS Exam Date: 06/09/2024/11:56 Family Phys: LITZY VAZQUEZ Charge Code: 760866 Physician: [place] Order #: [id number] Dose#: PROCEDURE: MRI CERVICAL SPINE WITHOUT CONTRAST [...] 78 Gender: F Pt. Type: Out Account: [id number] Location: 010 Ordering: DR. MUSTAPHA COLLINS Exam Date: 06/09/2024/11:56 Family Phys: LITZY VAZQUEZ Charge Code: 755178 Physician: [place] Order #: [id number] Dose#: Approved by: Arlet Pérez MD on 06/09/2024 at 13:17 Normal [facility] PT/INR DAILY PATIENT ON COUM ADINon 06-09-2024 INR Coag (PPP) [Relative time] 2.3 {INR} High 0.8 - 1.2 [facility] Comment on above: Result Comment: T HE [...] MECHANICAL HEART VALVES Performed By: #### 2 98493 #### [facility],[address] [place] [address] PT-COUMADIN 25.1 sec High 9.3 - 14.1 [facility] Comment on above: Performed By: #### 2 71165 #### [facility],[address] [place] [address] BMP with eGFRon 06-08-2024 AGE 78 years Normal [facility] Comment on above: Performed By: #### 2 58077 #### [facility],[address] [place] [address] Anion gap [Moles/Vol] 11 mmol/L Normal [facility] Comment on above: Performed By: #### 2 77902 #### [facility],[address] [place] [address] BMP with eGFR Normal [facility] Comment on above: Result Comment: BASI C METABOLIC PANEL Performed By: #### 2 41373 #### [facility],[address] [place], [place] [address] Calcium [Mass/Vol] 8.2 mg/dL Low 8.5 - 10.1 [facility] Comment on above: Performed By: #### 2 30022 #### [facility],[address] [place], [place] [address] Chloride [Moles/Vol] 95 mmol/L Low 98 - 107 [facility] Comment on above: Performed By: #### 2 63083 #### [facility],[address] [place], [place] [address] CO2 [Moles/Vol] 24.3 mmol/L Normal 21.0 - 32.0 [facility] Comment on above: Performed By: #### 2 84827 #### [facility],[address] [place], [place] [address] Creatinine [Mass/Vol] 0.71 mg/dL Normal 0.55 - 1.02 [facility] Comment on above: Performed By: #### 2 23865 #### [facility],[address] [place] [address] 37909 GFR/1.73 sq M.predicted among non-blacks MDRD (S/P/Bld) [Vol rate/Area] mL/min/{1.73_m2} Normal 60 - 999 [facility] Comment on above: Performed By: #### 2 37721 #### [facility],[address] [place], [place] [address] Result Comment: ACCO RDING TO THE NATIONAL KIDNEY DISEASE EDUCATION PROGRAM(NKDE), A NORMAL eGFR IS A VALUE GREATER THAN OR EQUAL TO 60 ML/MIN/1.73 SQ METERS. CHRONIC KIDNEY DISEASE: <60mL/MIN/1.73 SQ METERS KIDNEY FAILURE: <15mL/MIN/1.73 SQ METERS THIS TEST SHOULD ONLY BE USED FOR PATIENTS 18 YEARS OF AGE AND OLDER. Glucose [Mass/Vol] 93 mg/dL Normal 74 - 106 [facility] Comment on above: Performed By: #### 2 52288 #### [facility],[address] [place] [address] 71249 Potassium [Moles/Vol] 4.0 mmol/L Normal 3.5 - 5.1 [facility] Comment on above: Performed By: #### 2 73182 #### [facility],[address] [place] [address] Sodium [Moles/Vol] 126 mmol/L Low 136 - 145 [facility] Comment on above: Performed By: #### 2 03580 #### [facility],[address] [place] [address] Urea nitrogen [Mass/Vol] 6 mg/dL Low 7 - 18 [facility] Comment on above: Performed By: #### 2 43800 #### [facility],[address] [place] [address] CBC + DIFFon 06-08-2024 Baso # 0.02 x10EE3/UL Normal 0.00 - 0.10 [facility] Comment on above: Performed By: #### 2 15529 #### [facility],[address] [place] [address] 46017 Basophils/100 WBC (Bld) 0.4 % Normal 0.0 - 2.0 [facility] Comment on above: Performed By: #### 2 21116 #### [facility],[address] [place], [place] [address] CBC + DIFF Normal [facility] Comment on above: Result Comment: CBC- COMPLETE BLOOD COUNT Performed By: #### 2 15244 #### [facility],[address] [place] [address] 50337 EO # 0.16 x10EE3/UL Normal 0.00 - 0.50 [facility] Comment on above: Performed By: #### 2 20057 #### [facility],[address] [place] [address] 03054 Eosinophils/100 WBC (Bld) 3.0 % Normal 0.0 - 7.0 [facility] Comment on above: Performed By: #### 2 82600 #### [facility],[address] [place] [address] Erythrocyte distribution width (RBC) [Ratio] 12.9 % Normal 12.0 - 15.6 [facility] Comment on above: Performed By: #### 2 72585 #### [facility],[address] [place] [address] Hematocrit (Bld) [Volume fraction] 38.3 % Normal 34.0 - 46.0 [facility] Comment on above: Performed By: #### 2 12795 #### [facility],[address] [place] [address] Hemoglobin (Bld) [Mass/Vol] 12.7 g/dL Normal 12.0 - 16.0 [facility] Comment on above: Performed By: #### 2 30590 #### [facility],[address] [place], [place] [address] Lymph # 0.79 x10EE3/UL Low 0.80 - 2.80 [facility] Comment on above: Performed By: #### 2 87043 #### [facility],[address] [place], [place] [address] Lymphocytes/100 WBC (Bld) 14.4 % Low 20.0 - 45.0 [facility] Comment on above: Performed By: #### 2 23491 #### [facility],[address] [place] [address] 70665 MANUAL DIFF N/A Normal [facility] Comment on above: Performed By: #### 2 66701 #### [facility],[address] [place] [address] 73187 MCH (RBC) [Entitic mass] 31 pg Normal 27 - 33 [facility] Comment on above: Performed By: #### 2 78991 #### [facility],[address] [place] [address] MCHC 33 X10 3 Normal 32 - 36 [facility] Comment on above: Performed By: #### 2 56695 #### [facility],[address] [place] [address] 67397 MCV (RBC) [Entitic vol] 95 fL Normal 80 - 99 [facility] Comment on above: Performed By: #### 2 19010 #### [facility],[address] [place] [address] Perry # 0.46 x10EE3/UL Normal 0.20 - 1.00 [facility] Comment on above: Performed By: #### 2 90133 #### [facility],[address] [place], [place] [address] MONOS % 8.4 % Normal 0.0 - 10.0 [facility] Comment on above: Performed By: #### 2 12954 #### [facility],[address] [place] [address] 03808 Morphology Kevin (Bld) [Interp] N/A Normal [facility] Comment on above: Performed By: #### 2 09999 #### [facility],[address] [place] [address] 70071 Neut # 4.05 x10EE3/UL Normal 1.50 - 7.10 [facility] Comment on above: Performed By: #### 2 84880 #### [facility],[address] [place], [place] [address] Neutrophils/100 WBC (Bld) 73.8 % Normal 46.0 - 76.0 [facility] Comment on above: Performed By: #### 2 07336 #### [facility],[address] [place], [place] [address] PLATELET 197 x10EE3/UL Normal 150 - 450 [facility] Comment on above: Performed By: #### 2 34803 #### [facility],[address] [place] [address] 32332 Platelet mean volume (Bld) [Entitic vol] 6.8 fL Normal 6.6 - 10.5 [facility] Comment on above: Result Comment: AUTO MATED DIFFERENTIAL Performed By: #### 2 41634 #### [facility],[address] [place] [address] 87692 RBC 4.03 x 10EE6/UL Low 4.10 - 5.30 [facility] Comment on above: Performed By: #### 2 23748 #### [facility],[address] [place] [address] 53909 WBC 5.5 x 10EE3/UL Normal 4.5 - 10.8 [facility] Comment on above: Performed By: #### 2 64377 #### [facility],[address] [place] [address] 35612 ED FACILITY CODING SUMMARYon 06-08-2024 ED FACILITY CODING SUMMARY Facility Coding [place] [address] [id number] 06/07/2024 Patient: SINDY SWEENEY Sex: Female : 1945 Age: 78y Providers: Gibson Thrasher D.O. DIAGNOSTIC WORKUP Chief Complaint COUGH, SORE THROAT, FEVER, CHILLS and MUSCLE ACHES. -- Gibson Thrasher D.O. Principal Diagnosis Severe hyponatremia -- Gibson Thrasher D.O. ICD-10 Codes E87.1: Hypo-osmolality and hyponatremia PROCEDURES Procedures from Providers: EKG (CPT: 23710) -- Gibson Thrasher D.O. Procedures from Nurses/Facility: IV Hydration (CPT: 70825 X3) IV Push Fentanyl IVP (CPT: 17171) IV Push KetorOLAC (Toradol) IVP (CPT: 77894) IV Push Zofran IVP (CPT: 92082) SUPPLIES 1 of 2 Facility Coding [facility] [address]-88 This is a partial abstract of information documented in the full record. Service Administrator must use independent judgment in selecting codes. CPT copyright 2022 [employer]. All Rights Reserved. 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 [address] [id number] 06/07/2024 Patient: SINDY SWEENEY Sex: Female : [...] pre-medication administration. IVP given by EMT-P. Information E.M.T.-P. reviewed with patient. Vitals: 17:35 06/07/2024 BP: 171/85 MAP: Scanned 111 mmHg. HR: 69 bpm. Medication Wastage: 15 mg wasted. - 17:43 Loyd Contreras E.M.T.-P. 1 of 2 Trench Shovel Operator Medication Ordered Medication Administration Date/Time IV NS [...] Harkins R.N. Scanned 2 of 2 Normal [facility] ED NURSES CLINICAL NOTEon ED NURSES CLINICAL NOTE Nurse Narrative Nurse Clinical Narrative [address] [address] [id number] 06/07/2024 Patient: SINDY SWEENEY Sex: Female : 1945 Age: 78y Disposition: Admit to [facility] Disposition Decision Time: 19:07 06/07/2024 Departure Time: [...] powdr for inhalation -- 17:16 06/07/24 EDT Kaitlyn Sewell R.N. desmopressin 0.2 mg tablet -- [...] and shown to physician.). -- 16:49 06/07/24 EDT Maykel Harkins R.N. 17:00 06/07/24. ( Patient swabbed for flu and covid and sent to lab.). -- 17:11 06/07/24 EDT Maykel Harkins R.N. 17:04 06/07/24. IV NS 0.9 [...] mg gi (more content not included)... Normal [facility] ED ORDER SHEET (CPOE ONLY)on 06-08-2024 ED ORDER SHEET (CPOE ONLY) Order Sheet Order Sheet [address] [place] [address] [id number] 06/07/2024 Patient: SINDY SWEENEY Sex: Female : 1945 Age: 78y MEASUREMENTS: Wt: 93.0 kg, Ht/Pasha: 65.0 in, BMI: 34.11 ALLERGIES: latex MEDICATION/IV/DRIP/FLUID ORDERS Order Description Priority Entered Acknowledged Completed IV NS 0.9 %1000 mL at 500 16:31 06/07/2024 17:02 17:05 mL/hr (NOW x1) Gibson Thrasher, 06/07/2024 06/07/2024 Maykel Marcano R.N. R.N. Zofran IVP4 mg (NOW x1) 16:31 06/07/2024 17:02 17:06 Gibson Thrasher, 06/07/2024 06/07/2024 Maykel Marcano R.N. R.NJani KetorOLAC (Toradol) IVP15 mg 17:39 06/07/2024 17:39 17:43 (NOW x1) Gibson Thrasher, 06/07/2024 06/07/2024 Loyd Barton E.M.T.-P. E.M.T.-P. Reason for ordering with alerts: Benefits outweigh risks --17:39 06/07/2024 Gibson Thrasher D.O. IV NS 0.9 %1000 mL at 100 17:56 06/07/2024 17:58 18:27 mL/hr (NOW x1) Gibson Thrasher, 06/07/2024 06/07/2024 Maykel Marcano, 1 of 4 Order Sheet R.N. R.NJani Reason for ordering with alerts: Benefits [...] 06/07/2024 16:50 06/07/2024 Maykel Carlton D.O. R.N. D-Dimer Stat Stat 16:31 06/07/2024 16:50 06/07/2024 Maykel Carlton D.O. R.N. CMP Stat Stat 16:31 06/07/2024 16:50 06/07/2024 Maykel Carlton D.O. R.N. Troponin-I (Sched: q3h Stat 16:31 06/07/2024 16:50 06/07/2024 X2); Stat 1 of 2 Maykel Carlton D.O. RJaniNJani 2 of 4 Order Sheet Troponin-I (Sched: q3h Stat 16:31 06/07/2024 X2); Stat 2 of 2 Gibson Thrasher D.O. EKG - ED Stat Stat 16:31 06/07/2024 16:50 06/07/2024 Maykel Carlton D.O. RJaniNJani Urinalysis Stat Stat 16:31 06/07/2024 16:50 06/07/2024 Maykel Carlton D.O. RJaniNJani Rapid COVID (SARS) Stat 16:31 06/07/2024 16:50 06/07/2024 ANTIGEN TEST Stat Maykel Carlton D.O. RDelmer Flu Swab (Influenzae Stat 16:31 06/07/2024 16:50 06/07/2024 AAg) Stat Maykel Carlton D.O. R.N. Magnesium Stat Stat 18:55 06/07/2024 Gibson Thrasher D.O. DIAGNOSTIC STUDY ORDERS Order Description Priority Entered Acknowledged Completed STAFF ORDERS Order Description Priority Entered Acknowledged Collected Completed IV Saline Lock 16:31 06/07/2024 16:50 06/07/2024 Maykel Carlton D.O. R.NJani 3 of 4 Order Sheet [Electronically signed by Gibson Thrasher D.O. (06/08/2024 00:44 EDT)] 4 of 4 Normal [facility] ED PHYS CODING ABST SUMMARYo n 06-08-2024 ED PHYS CODING ABST SUMMARY Coding Summary Coding Summary [address] [place] [address] [id number] 06/07/2024 Patient: SINDY SWEENEY Sex: Female : 1945 Age: 78y ICD-10 Codes E87.1: Hypo-osmolality and hyponatremia CPT Codes EKG (CPT: 72721) This is a partial abstract of information documented in the full record. Service Administrator must use independent judgment in selecting codes. CPT copyright 2022 [employer]. All Rights Reserved. 1 of 1 Normal [facility] ED PHYSICIAN CLINICAL REPORT on 06-08-2024 ED PHYSICIAN CLINICAL REPORT Narrative Physician Clinical Narrative [facility] [address] [place] [address] [id number] 06/07/2024 Patient: SINDY SWEENEY Sex: Female : 1945 Age: 78y Disposition: Admit to [facility] Disposition Decision Time: 19:07 06/07/2024 Departure Time: [...] 1.50 - 7.10 Final EDT 06/07/2024 17:21 Perry # 0.57 x10/UL 0.20 - 1.00 Final [...] EDT 06/07/2024 (more content not included)... Normal [facility] ED SUPER BILLon 06-08-2024 ED SUPER BILL Superbill [address] [address] [id number] 06/07/2024 Patient: SINDY SWEENEY Sex: Female : 1945 Age: 78y Item Facility Professional Category Description Code Code Quantity Fee Total Nurse/E/M EMERGENCY 632838 1 $0.00 $0.00 DEPARTMENT VISIT HIGH/URGENT SEVERITY (38759-81) Nurse/IV/IM/Infusions Hydration 043157 3 $0.00 $0.00 additional hour (42016) Nurse/IV/IM/Infusions IVP additional 957502 2 $0.00 $0.00 push (66560) Nurse/IV/IM/Infusions IVP initial 150875 1 $0.00 $0.00 (50015) Grand Total $0.00 Providers Gibson Thrasher D.O. Chief Complaint 1 of 2 [facility] COUGH, SORE THROAT, FEVER, CHILLS and MUSCLE ACHES. Principal Diagnosis Severe hyponatremia ICD-10 Codes E87.1: Hypo-osmolality and hyponatremia 2 of 2 Normal [facility] ED VISIT SUMMARYon ED VISIT SUMMARY Visit Overview Visit Overview [address] [address] [id number] 06/07/2024 Patient: SINDY SWEENEY Sex: Female : [...] 10 mg tablet desmopressin 0.2 mg tablet of 4 Visit Overview fesoterodine ER 8 [...] 98.3 F BP 16:23 06/07/24 185/90 BP 20:06/07/24 172/77 HR 16:23 06/07/24 87 HR 20:06/07/24 67 RR 16:23 06/07/24 16 RR 20:05 [...] IMPRESSION SEVERE HYPONATREMIA 4 of 4 Normal [facility] PROTHROMBIN TIME AND INRon INR Coag (PPP) [Relative time] 3.0 {INR} High 0.8 - 1.2 [facility] Comment on above: Result Comment: T HE [...] MECHANICAL HEART VALVES Performed By: #### 2 73811 #### [facility],[address] [place] [address] PROTHROMBIN TIME AND INR Normal [facility] Comment on above: Result Comment: PROT HROMBIN TIME AND INR Performed By: #### 2 06791 #### [facility],[address] [place] [address] PT-COUMADIN 33.6 sec High 9.3 - 14.1 [facility] Comment on above: Performed By: #### 2 83687 #### [facility],[address] [place], [place] [phone] CBC + DIFFon 06-07-2024 Baso # 0.03 x10EE3/UL Normal 0.00 - 0.10 [facility] Comment on above: Performed By: #### 2 30792 #### [place] [address] Basophils/100 WBC (Bld) 0.5 % Normal 0.0 - 2.0 [facility] Comment on above: Performed By: #### 2 73230 #### [place] [address] CBC + DIFF Normal [facility] Comment on above: Result Comment: CBC- COMPLETE BLOOD COUNT Performed By: #### 2 18387 #### [place] [address] EO # 0.13 x10EE3/UL Normal 0.00 - 0.50 [facility] Comment on above: Performed By: #### 2 26194 #### [place] [address] Eosinophils/100 WBC (Bld) 2.0 % Normal 0.0 - 7.0 [facility] Comment on above: Performed By: #### 2 57408 #### [place] [address] Erythrocyte distribution width (RBC) [Ratio] 12.9 % Normal 12.0 - 15.6 [facility] Comment on above: Performed By: #### 2 92939 #### [place] [address] Hematocrit (Bld) [Volume fraction] 38.3 % Normal 34.0 - 46.0 [facility] Comment on above: Performed By: #### 2 20913 #### [place] [address] Hemoglobin (Bld) [Mass/Vol] 13.0 g/dL Normal 12.0 - 16.0 [facility] Comment on above: Performed By: #### 2 39636 #### [facility],[address] [place] [address] Lymph # 0.94 x10EE3/UL Normal 0.80 - 2.80 [facility] Comment on above: Performed By: #### 2 20074 #### [facility],[address] [place] [address] Lymphocytes/100 WBC (Bld) 14.4 % Low 20.0 - 45.0 [facility] Comment on above: Performed By: #### 2 46468 #### [facility],[address] [place] [address] MANUAL DIFF N/A Normal [facility] Comment on above: Performed By: #### 2 85259 #### [facility],[address] [place] [address] MCH (RBC) [Entitic mass] 32 pg Normal 27 - 33 [facility] Comment on above: Performed By: #### 2 48680 #### [facility],[address] [place] [address] MCHC 34 X10 3 Normal 32 - 36 [facility] Comment on above: Performed By: #### 2 25722 #### [facility],[address] [place] [address] MCV (RBC) [Entitic vol] 93 fL Normal 80 - 99 [facility] Comment on above: Performed By: #### 2 01195 #### [facility],[address] [place] [address] Perry # 0.57 x10EE3/UL Normal 0.20 - 1.00 [facility] Comment on above: Performed By: #### 2 36238 #### [facility],[address] [place] [address] 23661 MONOS % 8.6 % Normal 0.0 - 10.0 [facility] Comment on above: Performed By: #### 2 49547 #### [facility],[address] [place], [place] [phone] Morphology Kevin (Bld) [Interp] N/A Normal [facility] Comment on above: Performed By: #### 2 12299 #### [facility],[address] [place], [place] [phone] Neut # 4.86 x10EE3/UL Normal 1.50 - 7.10 [facility] Comment on above: Performed By: #### 2 34588 #### [facility],[address] [place] [address] Neutrophils/100 WBC (Bld) 74.4 % Normal 46.0 - 76.0 [facility] Comment on above: Performed By: #### 2 31372 #### [facility],[address] [place] [address] PLATELET 254 x10EE3/UL Normal 150 - 450 [facility] Comment on above: Performed By: #### 2 94912 #### [facility],[address] [place] [address] Platelet mean volume (Bld) [Entitic vol] 7.1 fL Normal 6.6 - 10.5 [facility] Comment on above: Result Comment: AUTO MATED DIFFERENTIAL Performed By: #### 2 40945 #### [place] [id number] RBC 4.10 x 10EE6/UL Normal 4.10 - 5.30 [facility] Comment on above: Performed By: #### 2 74710 #### [facility],[address] [place], [place] [phone] WBC 6.5 x 10EE3/UL Normal 4.5 - 10.8 [facility] Comment on above: Performed By: #### 2 46215 #### [facility],[address] [place], [place] [phone] CMP with eGFRon 06-07-2024 AGE 78 years Normal [facility] Comment on above: Performed By: #### 2 81909 #### [facility],[address] [place] [address] 18692 Albumin [Mass/Vol] 3.6 g/dL Normal 3.4 - 5.0 [facility] Comment on above: Performed By: #### 2 38250 #### [facility],[address] [place] [address] 88340 Albumin/Globulin [Mass ratio] 1.4 {ratio} Normal 0.9 - 1.6 [facility] Comment on above: Performed By: #### 2 92687 #### [facility],[address] [place] [address] 48761 ALK PHOS 87 U/L Normal 46 - 116 [facility] Comment on above: Performed By: #### 2 54767 #### [facility],[address] [place] [address] 05700 ALT [Catalytic activity/Vol] 17 U/L Normal 16 - 63 [facility] Comment on above: Performed By: #### 2 02087 #### [facility] [facility],[address] [place] [address] 24887 Anion gap [Moles/Vol] 12 mmol/L Normal 10 - 20 [facility] Comment on above: Performed By: #### 2 [id number] #### [facility],[address] [place] [address] 06005 AST [Catalytic activity/Vol] 21 U/L Normal 13 - 39 [facility] Comment on above: Performed By: #### 2 [id number] #### [facility],[address] [place] [address] 24044 B/C RATIO 9 ratio Normal 0 - 30 [facility] Comment on above: Performed By: #### 2 [id number] #### [facility],[address] [place] [address] 85406 Bilirubin [Mass/Vol] 0.6 mg/dL Normal 0.2 - 1.0 [facility] Comment on above: Performed By: #### 2 67093 #### [facility],[address] [place] [address] 72438 Calcium [Mass/Vol] 8.4 mg/dL Low 8.5 - 10.1 [facility] Comment on above: Performed By: #### 2 67941 #### [facility],[address] [place] [address] 58787 Chloride [Moles/Vol] 87 mmol/L Low 98 - 107 [facility] Comment on above: Performed By: #### 2 84015 #### [facility],[address] [place] [address] 35671 CMP with eGFR Normal [facility] Comment on above: Result Comment: COMP REHENSIVE METABOLIC PANEL Performed By: #### 2 18698 #### [facility],[address] [place] [address] 44347 CO2 [Moles/Vol] 25.8 mmol/L Normal 21.0 - 32.0 [facility] Comment on above: Performed By: #### 2 34324 #### [facility],[address] [place] [address] 65561 Creatinine [Mass/Vol] 0.74 mg/dL Normal 0.55 - 1.02 [facility] Comment on above: Performed By: #### 2 06612 #### [facility],[address] [place] [address] 05511 GFR/1.73 sq M.predicted among non-blacks MDRD (S/P/Bld) [Vol rate/Area] mL/min/{1.73_m2} Normal 60 - 999 [facility] Comment on above: Performed By: #### 2 28046 #### [facility],[address] [place] [address] 84728 Result Comment: ACCO RDING TO THE NATIONAL KIDNEY DISEASE EDUCATION PROGRAM(NKDE), A NORMAL eGFR IS A VALUE GREATER THAN OR EQUAL TO 60 ML/MIN/1.73 SQ METERS. CHRONIC KIDNEY DISEASE: <60mL/MIN/1.73 SQ METERS KIDNEY FAILURE: <15mL/MIN/1.73 SQ METERS THIS TEST SHOULD ONLY BE USED FOR PATIENTS 18 YEARS OF AGE AND OLDER. Globulin (S) [Mass/Vol] 2.5 g/dL Normal 1.5 - 3.8 [facility] Comment on above: Performed By: #### 2 95787 #### [facility],[address] [place] [address] 82758 Glucose [Mass/Vol] 100 mg/dL Normal 74 - 106 [facility] Comment on above: Performed By: #### 2 35060 #### [facility],[address] [place] [address] 55683 Potassium [Moles/Vol] 4.2 mmol/L Normal 3.5 - 5.1 [facility] Comment on above: Performed By: #### 2 78906 #### [facility],[address] [place] [address] 02339 Protein [Mass/Vol] 6.1 g/dL Low 6.4 - 8.2 [facility] Comment on above: Performed By: #### 2 02387 #### [facility],[address] [place] [address] 99846 Sodium [Moles/Vol] 121 mmol/L Low 136 - 145 [facility] Comment on above: Result Comment: SODI UM REPEATED Performed By: #### 2 18447 #### [facility],[address] [place] [address] 37315 Urea nitrogen [Mass/Vol] 7 mg/dL Normal 7 - 18 [facility] Comment on above: Performed By: #### 2 13139 #### [facility],[address] [place] [address] 92691 CORONAVIRUS (SARS) ANTIGEN T ESTon 06-07-2024 EXTERNAL QC DONE? YES Normal [facility] Comment on above: Performed By: #### 2 [id number] #### [facility],[address] [place] [address] 88429 INTERNAL CONTROL PASS Normal [facility] Comment on above: Performed By: #### 2 09872 #### [facility],[address] [place], [place] [id number] SARS ANTIGEN Negative Normal NORMAL: NEGATIVE [facility] Comment on above: Performed By: #### 2 36123 #### [facility],[address] [place], [place] [id number] SEND TO ? YES Normal [facility] Comment on above: Result Comment: SARS -CoV-2 THIS TEST IS BEING USED UNDER THE FDA EUA PROCEDURE. THIS ASSAY HAS BEEN VALIDATED AT [facility] FOR USE WITH NASAL AND NASOPHARYNGEAL SWAB [...] PUBLIC HEALTH AUTHORITIES. Performed By: #### 2 96857 #### [facility],[address] [place] [address] 31599 D-DIMER, QUANTITATIVEon 10- D-DIMER QUANT <200 Normal 0 - 230 [facility] Comment on above: Performed By: #### 2 01589 #### [facility],[address] [place] [address] 43098 D-DIMER, QUANTITATIVE Normal [facility] Comment on above: Result Comment: FELISA T D-DIMER Performed By: #### 2 92344 #### [facility],[address] [place] [address] 59232 INFLUENZA VIRUS RAPID A/Bon 06-07-2024 INFLUENZA VIRUS [...] TO THREE DAYS. RESULT CRITICAL? NO Normal [facility] Comment on above: Performed By: #### 2 97408 #### [facility],[address] [place] [address] 08309 LACTATEon 06-07-2024 Lactate [Moles/Vol] 0.8 mmol/L Normal 0.4 - 2.0 [facility] Comment on above: Performed By: #### 2 93944 #### [facility],[address] [place] [address] 29140 MAGNESIUMon 06-07-2024 Magnesium [Mass/Vol] 1.7 mg/dL Low 1.8 - 2.4 [facility] Comment on above: Performed By: #### 2 77619 #### [facility],[address] [place] [address] 61210 TROPONINon 06-07-2024 HS TROPONIN 5.5 pg/mL Normal 0.0 - 51.4 [facility] Comment on above: Performed By: #### 2 26092 #### [facility],[address] [place] [address] 32371 Basic Metabolic Profile (BMP )on 06-03-2024 BUN/CRE 8.5 RATIO Low 06-08 [facility] Comment on above: Performed By: #### L 500.2500 #### [facility] [address] [place], [address] CA,Total 9.5 mg/dL Normal 8.5-10.1 [facility] Comment on above: Performed By: #### L 500.2500 #### [facility] [address] [place], [address] Chloride [Moles/Vol] 106 mmol/L Normal 98-107 [facility] Comment on above: Performed By: #### L 500.2500 #### [facility] [address] [place], [address] CO2 [Moles/Vol] 26.0 mmol/L Normal 21.0-32.0 [facility] Comment on above: Performed By: #### L 500.2500 #### [facility] [address] [place], [address] Creatinine [Mass/Vol] 0.82 mg/dL Normal 0.55-1.02 [facility] Comment on above: Result Comment: The validity of the calculated GFR GFRAA in patients over 70 years has not been determined. Clinical correlation is essential. Performed By: #### L 500.2500 #### [facility] [address] [place], [address] EST GFR - AA 86 mL/min Normal >60 [facility] Comment on above: Result Comment: Afri can Welsh GFR Calc Performed By: #### L 500.2500 #### [facility] [address] [place], [address] GAP 7 Normal 5-15 [facility] Comment on above: Performed By: #### L 500.2500 #### [facility] [address] [place], [address] GFR/1.73 sq M.predicted among non-blacks MDRD (S/P/Bld) [Vol rate/Area] 71 mL/min/{1.73_m2} Normal >60 [facility] Comment on above: Result Comment: Non- GFR Calc Performed By: #### L 500.2500 #### [facility] [address] [place], [address] Glucose [Mass/Vol] 94 mg/dL Normal 74-106 [facility] Comment on above: Performed By: #### L 500.2500 #### [facility] [address] [place], [address] Potassium [Moles/Vol] 4.1 mmol/L Normal 3.5-5.1 [facility] Comment on above: Performed By: #### L 500.2500 #### [facility] [address] [place], [address] Sodium [Moles/Vol] 139 mmol/L Normal 136-145 [facility] Comment on above: Performed By: #### L 500.2500 #### [facility] [address] [place], [address] Urea nitrogen [Mass/Vol] 7 mg/dL Normal 7-18 [facility] Comment on above: Performed By: #### L 500.2500 #### [facility] [address] [place], [address] Basophil percentageOrdered B y: True Vazquez on 08-09-2023 Chloride [Moles/Vol] 106 mmol/L 98-107 [facility] Cholesterol [Mass/Vol] 160 mg/dL <200 [facility] Comment on above: <200 mg/dL Desirable 200-240 mg/dL Borderline >240 mg/dL High Risk Glucose [Mass/Vol] 81 mg/dL 74-106 [facility] Potassium [Moles/Vol] 4.0 mmol/L 3.5-5.1 [facility] Sodium [Moles/Vol] 140 mmol/L 136-145 [facility] Triglyceride [Mass/Vol] 133 mg/dL <199 [facility] Comment on above: The drugs N-Acetylcy steine and Metamizole may falsely depress this assay.Serum Triglycerides Reference Interval Normal <150 mg/dL Borderline high 150 - 199 mg/dL High 200 - 499 mg/dL Very High > or = 500 mg/dL WBC (Bld) [#/Vol] 6.8 10*3/uL 4.4-11.0 [facility] Blood erythrocytes count (nu mber/volume)Ordered By: True Vazquez on 08-09-2023 RBC (Bld) [#/Vol] 4.17 10*6/uL 4.2-5.4 [facility] Blood hemoglobin measurement (mass/volume)Ordered By: True Vazquez on 08-09-2023 Hemoglobin (Bld) [Mass/Vol] 12.9 g/dL 12.0-15.0 [facility] Blood platelet mean volumeOr dered By: True Vazquez on 08-09-2023 Platelet mean volume (Bld) [Entitic vol] 9.6 fL 6.2-12.0 [facility] Determination of erythrocyte mean corpuscular volume (MCV)Ordered By: True Vazquez on 08-09-2023 MCV (RBC) [Entitic vol] 99.0 fL 81-99 [facility] Hematocrit Auto (Bld) [Volum e fraction]Ordered By: True Vazquez on 08-09-2023 Hematocrit (Bld) [Volume fraction] 41.3 % 37-47 [facility] Iron measurement (mass/mass) Ordered By: True Vazquez on 08-09-2023 Iron (Unsp spec) [Mass/Mass] 29 ug/dL 50-170 [facility] - Chemistry and C hemistry - challengeOrdered By: True Vazquez on 08-09-2023 CO2 [Moles/Vol] 28.0 mmol/L 21.0-32.0 [facility] Cobalamin (Vitamin B12) [Mass/Vol] 379 pg/mL 211-911 [facility] Urea nitrogen/Creatinine [Mass ratio] 8.1 mg/mg 10-20 [facility] - Hematology and Cell countsOrdered By: True Vazquez on 08-09-2023 Erythrocyte distribution width (RBC) [Entitic vol] 49.7 fL 35.1-43.9 [facility] Erythrocyte distribution width (RBC) [Ratio] 13.5 % 11.6-14.6 [facility] MCH (RBC) [Entitic mass] 30.9 pg 27.0-32.0 [facility] MCHC Auto (RBC) [Mass/Vol]Or dered By: True Vazquez on 08-09-2023 MCHC (RBC) [Mass/Vol] 31.2 g/dL 32-36 [facility] No Panel InformationOrdered By: True Vazquez on 08-09-2023 Estimated GFR (MDRD) Amer 81 mL/min >60 [facility] Comment on above: GFR Calc Estimated GFR (MDRD) Non-Af Amer 67 mL/min >60 [facility] Comment on above: Non- GFR Calc Thyroid Stimulating Hormone (TSH) 1.08 uIU/mL 0.358-3.74 [facility] Vitamin D 25-Hydroxy 88.9 ng/mL [facility] Comment on above: Vitamin D 25(OH) Sta tus Range Deficiency <20 ng/mL (50nmol/L) Insufficiency 20 - 30 ng/mL (50 - 75 nmol/L) Sufficiency 30 - 100 ng/mL (75 - 250 nmol/L) Toxicity >100 ng/mL (>250 nmol/L) Platelets bldOrdered By: Long Vazquez on 08-09-2023 Platelets (Bld) [#/Vol] 275 10*3/uL 150-450 [facility] Serum or plasma calcium devin urement (mass/volume)Ordered By: True Vazquez on 08-09-2023 Calcium [Mass/Vol] 8.8 mg/dL 8.5-10.1 [facility] Serum or plasma cholesterol in HDL measurement (mass/volume)Ordered By: True Vazquez on 08-09-2023 Cholesterol in HDL [Mass/Vol] 70 mg/dL >40 [facility] Comment on above: The drugs N-Acetylcy steine and Metamizole may falsely depress this assay. Reference Range HDL <40 mg/dL Low HDL Cholesterol HDL >or= 60 mg/dL High HDL Cholesterol Serum or plasma cholesterol in VLDL measurement (mass/volume)Ordered By: True Vazquez on 08-09-2023 Cholesterol in VLDL [Mass/Vol] 27 mg/dL 5-40 [facility] Serum or plasma creatinine m easurement (mass/volume)Ordered By: True Vazquez on 08-09-2023 Creatinine [Mass/Vol] 0.87 mg/dL 0.55-1.02 [facility] Comment on above: The validity of the calculated GFR & GFRAA in patients over 70 years has not been determined. Clinical correlation is essential. Serum or plasma ferritin valdemar surement (mass/volume)Ordered By: True Vazquez on 08-09-2023 Ferritin [Mass/Vol] 8 ng/mL 8-252 [facility] Serum or plasma low density lipoprotein (LDL) cholesterol measurement (mass/volume)Ordered By: True Vazquez on 08-09-2023 Cholesterol in LDL [Mass/Vol] 63 mg/dL 0-130 [facility] Serum or plasma urea nitroge n measurement (mass/volume)Ordered By: True Vazquez on 08-09-2023 Urea nitrogen [Mass/Vol] 7 mg/dL 7-18 [facility] Thin prep Papanicolaou smear with manual screeningOrdered By: True Vazquez on 08-09-2023 Thin prep Papanicolaou smear with manual screening 6 5-15 [facility] Basophil percentageOrdered B y: True Vazquez on 04-10-2023 Basophil percentage 10-25 SEEN /hpf 0-5 [facility] Chloride [Moles/Vol] 103 mmol/L 98-107 [facility] Glucose [Mass/Vol] 108 mg/dL 74-106 [facility] Comment on above: Fasting Glucose resu lt from 100 to 125 mg/dL suggests IMPAIRED HOMEOSTASIS per A.D.A. criteria. Potassium [Moles/Vol] 4.0 mmol/L 3.5-5.1 [facility] Sodium [Moles/Vol] 135 mmol/L 136-145 [facility] Bilirubin Test strip Ql (U)O rdered By: True Vazquez on 04-10-2023 Bilirubin Ql (U) Negative Negative [facility] Culture, urineOrdered By: Bernardo Vazquez on 04-10-2023 Bacteria identified Cx Nom (U) Presumptive E. coli [facility] Ketones Test strip Ql (U)Ord ered By: True Vazquez on 04-10-2023 Ketones Ql (U) Negative Negative [facility] - Chemistry and C hemistry - challengeOrdered By: True Vazquez on 04-10-2023 CO2 [Moles/Vol] 24.0 mmol/L 21.0-32.0 [facility] Urea nitrogen/Creatinine [Mass ratio] 8.7 mg/mg 10-20 [facility] Mucus LM Ql (Urine sed)Order ed By: True Vazquez on 04-10-2023 Mucus Ql (Urine sed) 0 SEEN /hpf [facility] Nitrite Test strip Ql (U)Ord ered By: True Vazquez on 04-10-2023 Nitrite Ql (U) Positive Negative [facility] No Panel InformationOrdered By: True Vazquez on 04-10-2023 Estimated GFR (MDRD) Amer 106 mL/min >60 [facility] Comment on above: GFR Calc Estimated GFR (MDRD) Non-Af Amer 88 mL/min >60 [facility] Comment on above: Non- GFR Calc Protein Test strip Ql (U)Ord ered By: True Vazquez on 04-10-2023 Protein Ql (U) Negative Negative [facility] Serum or plasma calcium devin urement (mass/volume)Ordered By: True Vazquez on 04-10-2023 Calcium [Mass/Vol] 8.7 mg/dL 8.5-10.1 [facility] Serum or plasma creatinine m easurement (mass/volume)Ordered By: True Vazquez on 04-10-2023 Creatinine [Mass/Vol] 0.69 mg/dL 0.55-1.02 [facility] Comment on above: The validity of the calculated GFR & GFRAA in patients over 70 years has not been determined. Clinical correlation is essential. Serum or plasma urea nitroge n measurement (mass/volume)Ordered By: True Vazquez on 04-10-2023 Urea nitrogen [Mass/Vol] 6 mg/dL 7-18 [facility] Squamous epithelial cells de tection in urine sediment by light microscopyOrdered By: True Vazquez on 04-10-2023 Epithelial cells.squamous LM Ql (Urine sed) 0 SEEN /hpf 5-10 [facility] Thin prep Papanicolaou smear with manual screeningOrdered By: True Vazquez on 04-10-2023 Thin prep Papanicolaou smear with manual screening 8 5-15 [facility] Urine blood detectionOrdered By: True Vazquez on 04-10-2023 RBC Ql (U) 50 /ul Negative [facility] RBC Ql (U) 0-5 SEEN /hpf 0-5 [facility] Urine clarityOrdered By: Long Vazquez on 04-10-2023 Clarity (U) Sl. Cloudy Clear [facility] Urine color determinationOrd ered By: True Vazquez on 04-10-2023 Color (U) Yellow Yellow [facility] Urine glucose detectionOrder ed By: True Vazquez on 04-10-2023 Glucose Ql (U) Normal mg/dl Normal [facility] Urine leukocyte esterase det ection by dipstickOrdered By: True Vazquez on 04-10-2023 Leukocyte esterase Test strip Ql (U) 500 /ul Negative [facility] Urine pHOrdered By: Zeferino Vazquez on 04-10-2023 pH (U) 6.0 [pH] 5.0 - 8.0 [facility] Urine sediment bacteria coun t by microscopy (number/high power field)Ordered By: True Vazquez on 04-10-2023 Bacteria LM.HPF (Urine sed) [#/Area] 2 /[HPF] None Seen [facility] Urine specific gravity measu rementOrdered By: True Vazquez on 04-10-2023 Specific gravity (U) [Rel density] 1.010 1.002-1.03 0 [facility] Urobilinogen Auto test strip Ql (U)Ordered By: True Vazquez on 04-10-2023 Urobilinogen Ql (U) 1 mg/dl Normal [facility] Basophil percentageOrdered B y: True Vazquez on 01-01-2023 Bilirubin [Mass/Vol] 0.50 mg/dL 0.20-1.00 [facility] Comment on above: For patients on eltr ombopag therapy, use of Dimension [place]olph[place] TBIL is not recommended. Chloride [Moles/Vol] 103 mmol/L 98-107 [facility] Glucose [Mass/Vol] 80 mg/dL 74-106 [facility] Potassium [Moles/Vol] 4.1 mmol/L 3.5-5.1 [facility] Protein [Mass/Vol] 6.5 g/dL 6.4-8.2 [facility] Sodium [Moles/Vol] 137 mmol/L 136-145 [facility] WBC (Bld) [#/Vol] 6.3 10*3/uL 4.4-11.0 [facility] Blood erythrocytes count (nu mber/volume)Ordered By: True Vazquez on 01-01-2023 RBC (Bld) [#/Vol] 3.74 10*6/uL 4.2-5.4 [facility] Blood hemoglobin measurement (mass/volume)Ordered By: True Vazquez on 01-01-2023 Hemoglobin (Bld) [Mass/Vol] 12.6 g/dL 12.0-15.0 [facility] Blood platelet mean volumeOr dered By: True Vazquez on 01-01-2023 Platelet mean volume (Bld) [Entitic vol] 9.7 fL 6.2-12.0 [facility] Determination of erythrocyte mean corpuscular volume (MCV)Ordered By: True Vazquez on 01-01-2023 MCV (RBC) [Entitic vol] 104.5 fL 81-99 [facility] Erythrocyte sedimentation ra teOrdered By: True Vazquez on 01-01-2023 ESR (Bld) [Velocity] 6 mm/h 0-30 [facility] Hematocrit Auto (Bld) [Volum e fraction]Ordered By: True Vazquez on 01-01-2023 Hematocrit (Bld) [Volume fraction] 39.1 % 37-47 [facility] INR in Blood by Coagulation assayOrdered By: True Vazquez on 01-01-2023 INR Coag (Bld) [Relative time] 1.9 {INR} [facility] Iron measurement (mass/mass) Ordered By: True Vazquez on 01-01-2023 Iron (Unsp spec) [Mass/Mass] 76 ug/dL 50-170 [facility] - Chemistry and C hemistry - challengeOrdered By: True Vazquez on 01-01-2023 ALP [Catalytic activity/Vol] 63 U/L 45-117 [facility] ALT [Catalytic activity/Vol] 16 U/L 13-56 [facility] CO2 [Moles/Vol] 27.0 mmol/L 21.0-32.0 [facility] Cobalamin (Vitamin B12) [Mass/Vol] 327 pg/mL 211-911 [facility] Globulin (S) [Mass/Vol] 2.9 g/dL 2.2-4.2 [facility] Urea nitrogen/Creatinine [Mass ratio] 8.8 mg/mg 10-20 [facility] - CoagulationOrde red By: True Vazquez on 01-01-2023 PT Coag (PPP) [Time] 22.1 s 11.7-14.9 [facility] - Hematology and Cell countsOrdered By: True Vazquez on 01-01-2023 Erythrocyte distribution width (RBC) [Entitic vol] 49.7 fL 35.1-43.9 [facility] Erythrocyte distribution width (RBC) [Ratio] 13.1 % 11.6-14.6 [facility] MCH (RBC) [Entitic mass] 33.7 pg 27.0-32.0 [facility] MCHC Auto (RBC) [Mass/Vol]Or dered By: True Vazquez on 01-01-2023 MCHC (RBC) [Mass/Vol] 32.2 g/dL 32-36 [facility] No Panel InformationOrdered By: True Vazquez on 01-01-2023 Estimated GFR (MDRD) Amer 107 mL/min >60 [facility] Comment on above: GFR Calc Estimated GFR (MDRD) Non-Af Amer 88 mL/min >60 [facility] Comment on above: Non- GFR Calc Platelets bldOrdered By: Long danielrachnawan George on 01-01-2023 Platelets (Bld) [#/Vol] 216 10*3/uL 150-450 [facility] Serum or plasma C reactive p rotein measurement (mass/volume)Ordered By: True Vazquez on 01-01-2023 CRP [Mass/Vol] 4.54 mg/L 0.0-3.0 [facility] Comment on above: C-Reactive Protein ( CRP) provides useful information for thediagnosis, therapy and monitoring of inflammatory processesand associated diseases. For the evaluation of Relative Riskfor Cardiovascular Disease, a High Sensitivity CRP (HSCRP)should be ordered. Serum or plasma albumin devin urement (mass/volume)Ordered By: True Vazquez on 01-01-2023 Albumin [Mass/Vol] 3.6 g/dL 3.2-5.0 [facility] Serum or plasma albumin/glob ulin mass ratioOrdered By: True Vazquez on 01-01-2023 Albumin/Globulin [Mass ratio] 1.2 {ratio} 0.9-2.4 [facility] Serum or plasma calcium devin urement (mass/volume)Ordered By: True Vazquez on 01-01-2023 Calcium [Mass/Vol] 8.8 mg/dL 8.5-10.1 [facility] Serum or plasma creatinine m easurement (mass/volume)Ordered By: True Vazquez on 01-01-2023 Creatinine [Mass/Vol] 0.68 mg/dL 0.55-1.02 [facility] Comment on above: The validity of the calculated GFR & GFRAA in patients over 70 years has not been determined. Clinical correlation is essential. Serum or plasma ferritin valdemar surement (mass/volume)Ordered By: True Vazquez on 01-01-2023 Ferritin [Mass/Vol] 21 ng/mL 8-252 [facility] Serum or plasma urea nitroge n measurement (mass/volume)Ordered By: True Vazquez on 01-01-2023 Urea nitrogen [Mass/Vol] 6 mg/dL 7-18 [facility] Thin prep Papanicolaou smear with manual screeningOrdered By: True Vazquez on 01-01-2023 Thin prep Papanicolaou smear with manual screening 14 U/L 15-37 [facility] Thin prep Papanicolaou smear with manual screening 7 5-15 [facility] Absolute lymphocyte countOrd ered By: Dr. Vazquez on 08-08-2022 Lymphocytes Auto (Unsp spec) [#/Vol] 1.54 10*3/uL 0.83-4.51 [facility] Basophil percentageOrdered B y: Dr. Vazquez on 08-08-2022 Basophils/100 WBC (Bld) 0.5 % 0-1 [facility] Bilirubin [Mass/Vol] 0.40 mg/dL 0.20-1.00 [facility] Comment on above: For patients on eltr ombopag therapy, use of Dimension [place] TBIL is not recommended. Chloride [Moles/Vol] 103 mmol/L 98-107 [facility] Eosinophils/100 WBC (Bld) 3.3 % 0-5 [facility] Glucose [Mass/Vol] 97 mg/dL 74-106 [facility] Neutrophils (Bld) [#/Vol] 3.9 10*3/uL 2.0-7.7 [facility] Neutrophils/100 WBC (Bld) 63.2 % 47-70 [facility] Potassium [Moles/Vol] 4.2 mmol/L 3.5-5.1 [facility] Protein [Mass/Vol] 6.4 g/dL 6.4-8.2 [facility] Sodium [Moles/Vol] 137 mmol/L 136-145 [facility] WBC (Bld) [#/Vol] 6.1 10*3/uL 4.4-11.0 [facility] Blood erythrocytes count (nu mber/volume)Ordered By: Dr. Vazquez on 08-08-2022 RBC (Bld) [#/Vol] 3.80 10*6/uL 4.2-5.4 [facility] Blood hemoglobin measurement (mass/volume)Ordered By: Dr. Vazquez on 08-08-2022 Hemoglobin (Bld) [Mass/Vol] 12.8 g/dL 12.0-15.0 [facility] Blood lymphocytes/100 leukoc ytesOrdered By: Dr. Vazquez on 08-08-2022 Lymphocytes/100 WBC (Bld) 25.2 % 19-41 [facility] Blood monocytes/100 leukocyt esOrdered By: Dr. Vazquez on 08-08-2022 Monocytes/100 WBC (Bld) 7.5 % 0-10 [facility] Blood platelet mean volumeOr dered By: Dr. Vazquez on 08-08-2022 Platelet mean volume (Bld) [Entitic vol] 9.4 fL 6.2-12.0 [facility] Determination of erythrocyte mean corpuscular volume (MCV)Ordered By: Dr. Vazquez on 08-08-2022 MCV (RBC) [Entitic vol] 103.9 fL 81-99 [facility] Erythrocyte sedimentation ra teOrdered By: Dr. Vazquez on 08-08-2022 ESR (Bld) [Velocity] 5 mm/h 0-30 [facility] Hematocrit Auto (Bld) [Volum e fraction]Ordered By: Dr. Vazquez on 08-08-2022 Hematocrit (Bld) [Volume fraction] 39.5 % 37-47 [facility] Iron measurement (mass/mass) Ordered By: Dr. Vazquez on 08-08-2022 Iron (Unsp spec) [Mass/Mass] 47 ug/dL 50-170 [facility] - Chemistry and C hemistry - challengeOrdered By: Dr. Vazquez on 08-08-2022 ALP [Catalytic activity/Vol] 68 U/L 45-117 [facility] ALT [Catalytic activity/Vol] 15 U/L 13-56 [facility] CO2 [Moles/Vol] 28.0 mmol/L 21.0-32.0 [facility] Cobalamin (Vitamin B12) [Mass/Vol] 458 pg/mL 211-911 [facility] Globulin (S) [Mass/Vol] 2.7 g/dL 2.2-4.2 [facility] Magnesium [Mass/Vol] 2.0 mg/dL 1.6-2.6 [facility] Urea nitrogen/Creatinine [Mass ratio] 7.2 mg/mg 10- [facility] Laboratory - Hematology and Cell countsOrdered By: Dr. Vazquez on 08-08-2022 Erythrocyte distribution width (RBC) [Entitic vol] 50.6 fL 35.1-43.9 [facility] Erythrocyte distribution width (RBC) [Ratio] 13.2 % 11.6-14.6 [facility] Immature granulocytes/100 WBC (Bld) 0.300 % 0.0-0.9 [facility] Comment on above: IG% - Immature Granu locytes (promyelocytes, myelocytes and metamyelocytes) > 1% indicates that a LEFT SHIFT is Present. MCH (RBC) [Entitic mass] 33.7 pg 27.0-32.0 [facility] Nucleated RBC/100 WBC (Bld) [Ratio] 0.3 % 0-5 [facility] MCHC Auto (RBC) [Mass/Vol]Or dered By: Dr. Vazquez on 08-08-2022 MCHC (RBC) [Mass/Vol] 32.4 g/dL 32-36 [facility] No Panel InformationOrdered By: Dr. Vazquez on 08-08-2022 Estimated GFR (MDRD) Amer 84 mL/min >60 [facility] Comment on above: GFR Calc Estimated GFR (MDRD) Non-Af Amer 70 mL/min >60 [facility] Comment on above: Non- GFR Calc Ionized Calcium 5.3 mg/dL 4.5-5.6 [facility] Comment on above: Performed at: [facility] [id number] [place], [place] [id number] Director: Mando Dacosta [facility], Phone: [phone] at: - [facility] [id number] Director: Milad Harley PhD, Phone: [phone] MTHFR Thermolabile Variant DNA Anal Comment . 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 [id number]), legacy name: [id number] - Not Detected Interpretation:This result is not associated with an increased risk forhyperhomocysteinemia. See Additional Clinical Informationand Comments.Additional Clinical Information:Hyperhomocysteinemia is multifactorial involving genetic,clinical, and environmental risk factors. Reduced enzymeactivity of methylenetetrahydrofolate reductase (MTHFR) cecilio genetic risk factor for hyperhomocysteinemia,particularly when serum folate levels are low. There aretwo common variants in the MTHFR gene that can decreaseenzyme activity; c.665C>T (p. [id number]), legacy [id number], and c.1286A>C (p. [id number]), legacy name [id number].These variants do not independently increase risk ofconditions [...] due to limited evidence of clinical utility(PMID: 49271389). Comments:Genetic Coordinators are available for health careproviders to discuss results at [phone] Details:Variants Analyzed: c.665C>T (p. Dhn705Era), legacy name:C677T and c.1286A>C (p. Ypm697Eoy), legacy name: [id number]/Limitations:DNA analysis of the MTHFR gene was performed [...] was developed and its performancecharacteristics determined by [facility]. It has not beencleared or approved by the Food and Drug Administration.References:Bryant SE, Alejo CJ, Toña B[place]RE[place]. [facility] PracticeGuideline: lack of evidence for MTHFR polymorphism testing.Tiffanie Med. 2013 b;15(2):153-6. doi: 10.1038/gim.2012.165.Epub 2012Aug 22. PMID: 81850152.[employer] [employer]'Committee on Practice Bulletins-Obstetrics. ACOG PracticeBulletin No. 197: Inherited Thrombophilias in .Obstet Gynecol. 2018 Feb;132(1):e18-e34. doi:10.1097/AOG.0579630661657445. Erratum in: Obstet Gynecol.2018 May;132(4):1069. PMID: 38618565.Kaia Lambert, PhD, Harris Biswas, PhDKenroy Slaughter, PhD, Marisol Palmer, PhD, Loree Mann, PhD, FACW Jerrica Prather, PhD, Magdiel Villalobos, PhD, Mireya Vora, PhD, FAC Parathyroid Hormone (Intact) 74.0 pg/mL 18.4-80.1 [facility] Thyroid Stimulating Hormone (TSH) 1.28 uIU/mL 0.358-3.74 [facility] Vitamin D 25-Hydroxy 50.9 ng/mL [facility] Comment on above: Vitamin D 25(OH) Sta tus Range Deficiency <20 ng/mL (50nmol/L) Insufficiency 20 - 30 ng/mL (50 - 75 nmol/L) Sufficiency 30 - 100 ng/mL (75 - 250 nmol/L) Toxicity >100 ng/mL (>250 nmol/L) Platelets bldOrdered By: Dr. Vazquez on 08-08-2022 Platelets (Bld) [#/Vol] 248 10*3/uL 150-450 [facility] Serum or plasma C reactive p rotein measurement (mass/volume)Ordered By: Dr. Vazquez on 08-08-2022 CRP [Mass/Vol] 4.39 mg/L 0.0-3.0 [facility] Comment on above: C-Reactive Protein ( CRP) provides useful information for thediagnosis, therapy and monitoring of inflammatory processesand associated diseases. For the evaluation of Relative Riskfor Cardiovascular Disease, a High Sensitivity CRP (HSCRP)should be ordered. Serum or plasma albumin devin urement (mass/volume)Ordered By: Dr. Vazquez on 08-08-2022 Albumin [Mass/Vol] 3.7 g/dL 3.2-5.0 [facility] Serum or plasma albumin/glob ulin mass ratioOrdered By: Dr. Vazquez on 08-08-2022 Albumin/Globulin [Mass ratio] 1.4 {ratio} 0.9-2.4 [facility] Serum or plasma calcium devin urement (mass/volume)Ordered By: Dr. Vazquez on 08-08-2022 Calcium [Mass/Vol] 8.5 mg/dL 8.5-10.1 [facility] Serum or plasma creatinine m easurement (mass/volume)Ordered By: Dr. Vazquez on 08-08-2022 Creatinine [Mass/Vol] 0.84 mg/dL 0.55-1.02 [facility] Comment on above: The validity of the calculated GFR & GFRAA in patients over 70 years has not been determined. Clinical correlation is essential. Serum or plasma ferritin valdemar surement (mass/volume)Ordered By: Dr. Vazquez on 08-08-2022 Ferritin [Mass/Vol] 12 ng/mL 8-252 [facility] Serum or plasma urea nitroge n measurement (mass/volume)Ordered By: Dr. Vazquez on 08-08-2022 Urea nitrogen [Mass/Vol] 6 mg/dL 7-18 [facility] Serum rheumatoid factor dete ctionOrdered By: Dr. Vazquez on 08-08-2022 Rheumatoid factor Ql (S) < 10.0 IU/mL <15 [facility] Thin prep Papanicolaou smear with manual screeningOrdered By: Dr. Vazquez on 08-08-2022 Thin prep Papanicolaou smear with manual screening 12 U/L 15-37 [facility] Thin prep Papanicolaou smear with manual screening 6 5-15 [facility] Thin prep Papanicolaou smear with manual screening Not Reportable [facility] Absolute lymphocyte counton 05-02-2022 Lymphocytes Auto (Unsp spec) [#/Vol] 1.36 10*3/uL 0.83-4.51 [facility] Work Phone: Basophil percentageon 2021 Basophil percentage 0 SEEN /hpf 0-5 [facility] Work Phone: Basophils/100 WBC (Bld) 0.4 % 0-1 [facility] Work Phone: Chloride [Moles/Vol] 103 mmol/L 98-107 [facility] Work Phone: Eosinophils/100 WBC (Bld) 2.5 % 0-5 [facility] Work Phone: Glucose [Mass/Vol] 97 mg/dL 74-106 [facility] Work Phone: Neutrophils (Bld) [#/Vol] 6.2 10*3/uL 2.0-7.7 [facility] Work Phone: Neutrophils/100 WBC (Bld) 73.8 % 47-70 [facility] Work Phone: Potassium [Moles/Vol] 3.7 mmol/L 3.5-5.1 [facility] Work Phone: Sodium [Moles/Vol] 140 mmol/L 136-145 [facility] Work Phone: WBC (Bld) [#/Vol] 8.4 10*3/uL 4.4-11.0 [facility] Work Phone: Bilirubin Test strip Ql (U)o n 05-02-2022 Bilirubin Ql (U) Negative Negative [facility] Work Phone: Blood erythrocytes count (nu mber/volume)on 05-02-2022 RBC (Bld) [#/Vol] 4.09 10*6/uL 4.2-5.4 [facility] Work Phone: Blood hemoglobin measurement (mass/volume)on 05-02-2022 Hemoglobin (Bld) [Mass/Vol] 13.7 g/dL 12.0-15.0 [facility] Work Phone: [phone] Blood lymphocytes/100 leukoc yteson 05-02-2022 Lymphocytes/100 WBC (Bld) 16.1 % 19-41 [facility] Work Phone: [phone] Blood monocytes/100 leukocyt eson 05-02-2022 Monocytes/100 WBC (Bld) 7.0 % 0-10 [facility] Work Phone: Blood platelet mean volumeon 05-02-2022 Platelet mean volume (Bld) [Entitic vol] 9.1 fL 6.2-12.0 [facility] Work Phone: Determination of erythrocyte mean corpuscular volume (MCV)on 05-02-2022 MCV (RBC) [Entitic vol] 100.7 fL 81-99 [facility] Work Phone: Hematocrit Auto (Bld) [Volum e fraction]on 05-02-2022 Hematocrit (Bld) [Volume fraction] 41.2 % 37-47 [facility] Work Phone: INR in Blood by Coagulation assayon 05-02-2022 INR Coag (Bld) [Relative time] 1.9 {INR} [facility] Work Phone: Ketones Test strip Ql (U)on 05-02-2022 Ketones Ql (U) Negative Negative [facility] Work Phone: Laboratory - Chemistry and C hemistry - challengeon 05-02-2022 CO2 [Moles/Vol] 29.0 mmol/L 21.0-32.0 [facility] Work Phone: Urea nitrogen/Creatinine [Mass ratio] 6.0 mg/mg 10-20 [facility] Work Phone: Laboratory - Coagulationon 0 05-02-2022 PT Coag (PPP) [Time] 21.7 s 11.7-14.9 [facility] Work Phone: Laboratory - Hematology and Cell countson 05-02-2022 Erythrocyte distribution width (RBC) [Entitic vol] 47.8 fL 35.1-43.9 [facility] Work Phone: Erythrocyte distribution width (RBC) [Ratio] 12.8 % 11.6-14.6 [facility] Work Phone: Immature granulocytes/100 WBC (Bld) 0.200 % 0.0-0.9 [facility] Work Phone: Comment on above: IG% - Immature Granu locytes (promyelocytes, myelocytes and metamyelocytes) > 1% indicates that a LEFT SHIFT is Present. MCH (RBC) [Entitic mass] 33.5 pg 27.0-32.0 [facility] Work Phone: Nucleated RBC/100 WBC (Bld) [Ratio] 0 % 0-5 [facility] Work Phone: MCHC Auto (RBC) [Mass/Vol]on 05-02-2022 MCHC (RBC) [Mass/Vol] 33.3 g/dL 32-36 [facility] Work Phone: Mucus LM Ql (Urine sed)on Mucus Ql (Urine sed) 0 SEEN /hpf [facility] Work Phone: Nitrite Test strip Ql (U)on 05-02-2022 Nitrite Ql (U) Negative Negative [facility] Work Phone: No Panel Informationon 05-02 Estimated Creatinine Clearance Calc 50.27 ml/min [facility] Work Phone: Estimated GFR (MDRD) Amer 85 mL/min >60 [facility] Work Phone: Comment on above: GFR Calc Estimated GFR (MDRD) Non-Af Amer 70 mL/min >60 [facility] Work Phone: Comment on above: Non- GFR Calc Troponin I High Sensitivity 5 pg/mL 3.0-54.0 [facility] Work Phone: Comment on above: Please Note: New Neftali t Units and Gender Specific Reference Ranges. For more information see Policy Stat Procedure Adolphus High Sensitivity Troponin (TNIH) and attachments. Platelets bldon 05-02-2022 Platelets (Bld) [#/Vol] 187 10*3/uL 150-450 [facility] Work Phone: Protein Test strip Ql (U)on 05-02-2022 Protein Ql (U) Negative Negative [facility] Work Phone: Serum or plasma calcium devin urement (mass/volume)on 05-02-2022 Calcium [Mass/Vol] 9.3 mg/dL 8.5-10.1 [facility] Work Phone: Serum or plasma creatinine m easurement (mass/volume)on 05-02-2022 Creatinine [Mass/Vol] 0.83 mg/dL 0.55-1.02 [facility] Work Phone: Comment on above: The validity of the calculated GFR & GFRAA in patients over 70 years has not been determined. Clinical correlation is essential. Serum or plasma urea nitroge n measurement (mass/volume)on 05-02-2022 Urea nitrogen [Mass/Vol] 5 mg/dL 7-18 [facility] Work Phone: Squamous epithelial cells de tection in urine sediment by light microscopyon 05-02-2022 Epithelial cells.squamous LM Ql (Urine sed) 0 SEEN /hpf 5-10 [facility] Work Phone: Thin prep Papanicolaou smear with manual screeningon 05-02-2022 Thin prep Papanicolaou smear with manual screening 8 5-15 [facility] Work Phone: Urine blood detectionon 04-20 RBC Ql (U) Negative Negative [facility] Work Phone: RBC Ql (U) 0 SEEN /hpf 0-5 [facility] Work Phone: Urine clarityon 05-02-2022 Clarity (U) Clear Clear [facility] Work Phone: Urine color determinationon 05-02-2022 Color (U) Yellow Yellow [facility] Work Phone: Urine glucose detectionon Glucose Ql (U) Normal mg/dl Normal [facility] Work Phone: Urine leukocyte esterase det ection by dipstickon 05-02-2022 Leukocyte esterase Test strip Ql (U) Negative Negative [facility] Work Phone: Urine pHon 05-02-2022 pH (U) 7.0 [pH] 5.0 - 8.0 [facility] Work Phone: [phone] Urine sediment bacteria coun t by microscopy (number/high power field)on 05-02-2022 Bacteria LM.HPF (Urine sed) [#/Area] 0 /[HPF] None Seen [facility] Work Phone: Urine specific gravity measu rementon 05-02-2022 Specific gravity (U) [Rel density] 1.010 1.002-1.03 0 [facility] Work Phone: Urobilinogen Auto test strip Ql (U)on 05-02-2022 Urobilinogen Ql (U) Normal mg/dl Normal [facility] Work Phone: Absolute lymphocyte counton 02-01-2022 Lymphocytes Auto (Unsp spec) [#/Vol] 1.59 10*3/uL 0.83-4.51 [facility] Work Phone: Basophil percentageon 2021 Basophils/100 WBC (Bld) 0.3 % 0-1 [facility] Work Phone: Bilirubin [Mass/Vol] 0.30 mg/dL 0.20-1.00 [facility] Work Phone: Comment on above: For patients on eltr ombopag therapy, use of Dimension Adolphus TBIL is not recommended. Chloride [Moles/Vol] 102 mmol/L 98-107 [facility] Work Phone: Eosinophils/100 WBC (Bld) 2.0 % 0-5 [facility] Work Phone: [phone] Glucose [Mass/Vol] 100 mg/dL 74-106 [facility] Work Phone: Comment on above: Fasting Glucose resu lt from 100 to 125 mg/dL suggests IMPAIRED HOMEOSTASIS per A.D.A. criteria. Neutrophils (Bld) [#/Vol] 5.2 10*3/uL 2.0-7.7 [facility] Work Phone: Neutrophils/100 WBC (Bld) 69.7 % 47-70 [facility] Work Phone: Potassium [Moles/Vol] 4.3 mmol/L 3.5-5.1 [facility] Work Phone: Protein [Mass/Vol] 7.1 g/dL 6.4-8.2 [facility] [facility] Work Phone: Sodium [Moles/Vol] 137 mmol/L 136-145 [place] [facility] Work Phone: WBC (Bld) [#/Vol] 7.5 10*3/uL 4.4-11.0 [facility] Work Phone: [phone] Blood erythrocytes count (nu mber/volume)on 02-01-2022 RBC (Bld) [#/Vol] 4.22 10*6/uL 4.2-5.4 [facility] [facility] Work Phone: [phone] Blood hemoglobin measurement (mass/volume)on 02-01-2022 Hemoglobin (Bld) [Mass/Vol] 13.9 g/dL 12.0-15.0 [facility] Work Phone: Blood lymphocytes/100 leukoc yteson 02-01-2022 Lymphocytes/100 WBC (Bld) 21.1 % 19-41 [facility] Work Phone: Blood monocytes/100 leukocyt eson 02-01-2022 Monocytes/100 WBC (Bld) 6.6 % 0-10 [facility] Work Phone: Blood platelet mean volumeon 02-01-2022 Platelet mean volume (Bld) [Entitic vol] 9.1 fL 6.2-12.0 [facility] Work Phone: Determination of erythrocyte mean corpuscular volume (MCV)on 02-01-2022 MCV (RBC) [Entitic vol] 98.8 fL 81-99 [facility] Work Phone: Erythrocyte sedimentation ra eugene 02-01-2022 ESR (Bld) [Velocity] 10 mm[facility]h [facility]: Hematocrit Auto (Bld) [Volum e fraction]on 02-01-2022 Hematocrit (Bld) [Volume fraction] 41.7 % 37-47 [facility] Work Phone: Iron measurement (mass/mass) on 02-01-2022 Iron (Unsp spec) [Mass/Mass] 48 ug/dL 50-170 [facility] Work Phone: Laboratory - Chemistry and C hemistry - challengeon 02-01-2022 ALP [Catalytic activity/Vol] 62 U/L 45-117 [facility] Work Phone: [phone] ALT [Catalytic activity/Vol] 20 U/L 13-56 [facility] Work Phone: CO2 [Moles/Vol] 29.0 mmol/L 21.0-32.0 [facility] Work Phone: Cobalamin (Vitamin B12) [Mass/Vol] 1309 pg/mL 211-911 [facility] Work Phone: Globulin (S) [Mass/Vol] 3.3 g/dL 2.2-4.2 [facility] Work Phone: Magnesium [Mass/Vol] 1.8 mg/dL 1.6-2.6 [facility] Work Phone: Urea nitrogen/Creatinine [Mass ratio] 9.4 mg/mg 10-20 [facility] Work Phone: Laboratory - Hematology and Cell countson 02-01-2022 Erythrocyte distribution width (RBC) [Entitic vol] 46.2 fL 35.1-43.9 [facility] Work Phone: Erythrocyte distribution width (RBC) [Ratio] 12.7 % 11.6-14.6 [facility] Work Phone: Immature granulocytes/100 WBC (Bld) 0.300 % 0.0-0.9 [facility] Work Phone: Comment on above: IG% - Immature Granu locytes (promyelocytes, myelocytes and metamyelocytes) > 1% indicates that a LEFT SHIFT is Present. MCH (RBC) [Entitic mass] 32.9 pg 27.0-32.0 [facility] Work Phone: Nucleated RBC/100 WBC (Bld) [Ratio] 0 % 0-5 [facility] Work Phone: MCHC Auto (RBC) [Mass/Vol]on 02-01-2022 MCHC (RBC) [Mass/Vol] 33.3 g/dL 32-36 [facility] Work Phone: No Panel Informationon 02-01 Estimated GFR (MDRD) Amer 83 mL/min >60 [facility] Work Phone: Comment on above: GFR Calc Estimated GFR (MDRD) Non-Af Amer 69 mL/min >60 [facility] Work Phone: Comment on above: Non- GFR Calc Thyroid Stimulating Hormone (TSH) 1.13 uIU/mL 0.358-3.74 [facility] Work Phone: Vitamin D 25-Hydroxy 66.7 ng/mL [facility] Work Phone: Comment on above: Vitamin D 25(OH) Sta tus Range Deficiency <20 ng/mL (50nmol/L) Insufficiency 20 - 30 ng/mL (50 - 75 nmol/L) Sufficiency 30 - 100 ng/mL (75 - 250 nmol/L) Toxicity >100 ng/mL (>250 nmol/L) Platelets bldon 02-01-2022 Platelets (Bld) [#/Vol] 254 10*3/uL 150-450 [facility] Work Phone: Serum or plasma albumin devin urement (mass/volume)on 02-01-2022 Albumin [Mass/Vol] 3.8 g/dL 3.2-5.0 [facility] Work Phone: Serum or plasma albumin/glob ulin mass ratioon 02-01-2022 Albumin/Globulin [Mass ratio] 1.2 {ratio} 0.9-2.4 [facility] Work Phone: Serum or plasma calcium devin urement (mass/volume)on 02-01-2022 Calcium [Mass/Vol] 9.1 mg/dL 8.5-10.1 [facility] Work Phone: Serum or plasma creatinine m easurement (mass/volume)on 02-01-2022 Creatinine [Mass/Vol] 0.85 mg/dL 0.55-1.02 [facility] Work Phone: Comment on above: The validity of the calculated GFR & GFRAA in patients over 70 years has not been determined. Clinical correlation is essential. Serum or plasma ferritin valdemar surement (mass/volume)on 02-01-2022 Ferritin [Mass/Vol] 15 ng/mL 8-252 [facility] Work Phone: Serum or plasma urea nitroge n measurement (mass/volume)on 02-01-2022 Urea nitrogen [Mass/Vol] 8 mg/dL 7-18 [facility] Work Phone: Thin prep Papanicolaou smear with manual screeningon 02-01-2022 Thin prep Papanicolaou smear with manual screening 17 U/L 15-37 [facility] Work Phone: Thin prep Papanicolaou smear with manual screening 6 5-15 [facility] Work Phone: Office Visit: discuss dysmot ilityon 04-11-2017 Documentation of current medications (procedure) Done Invalid Interpretation Code [facility] Work Phone: Fall risk assessment No Invalid Interpretation Code [facility] Work Phone: Tobacco use [facility] Never smoker Invalid Interpretation Code [facility] Work Phone: CNCOon 04-03-2017 CNCO Letter Freddie Coello ra, MD[address] [place], [place] [address]Dsgcnw: Fax: august 2016Dear Ms. Martinez was a pleasure to see you on March 08, [address] Bravo Daniel at therequest of Dr. Dacosta. I tried to reach you by telephone [...] Betancourt MD(electronically signed to expedite mailing) Normal [facility] CT ABDOMEN W IVCONon 03-13- 017 CT ABDOMEN W IVCON * * *Final Report* * *DATE OF EXAM: Mar 13 2017 3:13PM [facility] 0533 - CT ABDOMEN W IVCON / [...] Findings on Abdominal CT. JACR 2010; 7:754Transcriptionist: OSOROI Transcribe Date/Time: Mar 13 2017 4:11PDictated by : WESLY REBOLLEDO MDThis examination was interpreted and the report reviewed and electronically signed by: WESLY REBOLLEDO MD on Mar 13 2017 4:46PM EST Normal [facility] PROGRESSon 03-13-2017 PROGRESS HNO ID: [id number] thor: Jennifer Maier CtService: (none)Author Type: (none)Type: Progress NotesFiled: 03/13/2017 3:16 PMNote Text: Radiology Service Progress NotePATIENT NAME: Sindy SweeneyMRN: [id number] OF SERVICE: March 13, 2017TIME: 3:15 PMPATIENT IDENTITY VERIFICATION COMPLETED USING TWO (2) METHODS: Patientconfirmed name verbally and Date of .PATIENT GENDER DATA: Female. status: : NoBreastfeeding status: NO.PATIENT RELEVANT IMPLANT DATA REVIEWED: Not ApplicableCONTRAST INDUCED NEPHROPATHY RISK FACTORS: Patient age > 60 yearsCREATININE:CreatinineD ate Value Ref Range Ualadp6511/14/2012 0.66 (L) 0.70 - 1.40 mg/dL Final11/13/2012 [...] 19-99 years ) 0.70-1.40 mg/dLCALCULATED GFR:RADIOLOGIST NOTIFIED?: SatishERGIES: Reviewed and unchangedCONTRAST ALLERGY: NO.PERIPHERAL IV ACCESS: Ambulatory: IV type: A peripheral IV was startedin the Left antecubital site with a Angio cath: 20 gauge., Siteassessment: Clean,Dry and Intact, Site disposition DiscontinuedRADIOLOGY DEPARTMENT: CT; Exam(s) Completed: AbdomenSIGNED BY: Jennifer Maier CtJuly 2016 3:15 PM Normal [facility] Ed Creatinineon 03-13- 017 Creatinine 0.7 mg/dL Normal 0.7-1.4 [facility] CNOVon 03-08-2017 CNOV Office Visit (GASTMN) -------SINDY SWEENEY ([id number]) 1945 FDate Time Provider Department03/08/17 12:40 PM MEENA BETANCOURT (SONAL) ROSAURA During your visit today, we recorded the following information about you: Temperature Pulse Blood pressure Weight 97.3 degrees 75/minute 135/70 92.2 kg Height 1.626 Lisset Daniel MD 03/08/2017 2:25 PM SignedDEPARTMENT OF GASTROENTEROLOGY - NEW PATIENT/CONSULTREASON FOR VISITSujam Sweeney is a 71 year old female who is scheduled at the request ofStephanie Dacosta for New Patient (Esophageal Dysmotility). My finalrecommendations will be communicated back to the requesting physician by theway of the shared medical record, fax, or via US MailHISTORY OF PRESENT ILLNESSSindy Sweeney is a 71 year old female who presents today for an evaluationof dysphagia.Reports that her symptoms started January 2017 when she started havingepigastric pain + [...] SURGICAL HISTORYNo date: CHOLECYSTECTOMY HX02/04/2017: EGD W/O RUST SPECIMEN [id number]: LAP UMBILICAL HERNIA REPAIR11/10/2012: PICC LINE INSERT/CONSULT [...] be difficultwihtout esophageal lengthening procedure (Juanita).Bravo Daniel MD,TASHA,UZMAmaggieprovidence tarzana medical centeraaron Provider: STEPHANIE DACOSTA [[id number]]Allergies As of Date: 03/08/2017 Noted Allergy ReactionLATEX 03/08/2017 2 - RashOXYCODONE 02/26/2013 2 - RashDate Reviewed: 03/08/2017Reviewed by: Jerrica Mo MEDICAL LIBRARY ASSISTANT - Fully AssessedReason for Visit: New Patient [172] Cmt: Esophageal DysmotilityPrimary Visit Diagnosis:Screening for nephropathy [Z13.89] Other Visit Diagnoses:Abdominal pain, unspecified location [R10.9] Hiatal hernia [K44.9]Order(s):CREATININE BLD [SQCRET] Order #: [id number] FUTURE CT ABDOMEN W IVCON [[id number]] Order #: [id number] FUTURE iv contrast (radiology procedure)CT ABD W [...] encounter WARFARIN 1 MG TABLET >> Jerrica Williamoma [facility] 03/08/2017 12:49 PM >> CSOMA, JERRICA LIEN [facility] Mar 08, 2017 12:49 PM Dose varies LOVENOX SUBCUTANEOUS >> Jerrica Williamoma [facility] 03/08/2017 12:47 PM >> CSOMAJERRICA LPN [facility] Mar 08, 2017 12:47 PM Patient not taking GABAPENTIN 100 MG CAPSULE >> Jerrica Csoma [facility] 03/08/2017 12:48 PM >> CSOMAJENNIFERJERRICA LIEN [facility] Mar 08, 2017 12:48 PM Patient not taking HYDROCODONE 5 MG-ACETAMINOPHEN 500 MG TABLET >> Jerrica Williamoma [facility] 03/08/2017 12:46 PM >> CSJERRICA LOMBARDI LPN [facility] Mar 08, 2017 12:46 PM Patient not taking WARFARIN 3 MG TABLET >> Jerrica Williamoma [facility] 03/08/2017 12:49 PM >> CSOMAJENNIFERJERRICA LIEN [facility] Mar 08, 2017 12:49 PM Patient not taking ALBUTEROL 90 MCG/ACTUATION AEROSOL INHALER >> Jerrica Csoma [facility] 03/08/2017 12:47 PM >> CSOMAJENNIFERJERRICA LIEN [facility] Mar 08, 2017 12:47 PM Patient [...] times daily.Follow-up and Disposition History RecordedEncounter Number: [id number] Status:Closed by BRAVO DANIEL MD on 03/08/17 [facility] PROGRESSon 03-08-2017 PROGRESS HNO ID: [id number] thor: Bravo Hensley: (none)Author Type: PhysicianType: Progress NotesFiled: 03/08/2017 2:25 PMNote Text:DEPARTMENT OF GASTROENTEROLOGY - NEW PATIENT/CONSULTREASON FOR VISITStom Sweeney is a 71 year old female who is scheduled at the request of Stephanie Dacosta for New Patient (Esophageal Dysmotility). My finalrecommendations [...] with eating food. [facility] [...] SURGICAL HISTORYNo date: CHOLECYSTECTOMY HX02/04/2017: EGD W/O RUST SPECIMEN [id number]: LAP UMBILICAL HERNIA REPAIR11/10/2012: PICC LINE INSERT/CONSULT [...] Value11/05/2012 1.1AST (U/L)Date Value11/05/2012 18ALT (U/L)Date Value11/05/2012 15AssessmentIMPRESSIONMs. Zahra is a 71 year old year old [...] patient. I reviewed the History, Exam, and Alrieza documented by the resident/fellow.The following reflects my [...] esophageal lengthening procedure (Juanita).Bravo Daniel MD,MACP,MACG Normal [facility] Microbiology: Culture, Urine on 02-06-2017 GE use only - for LinkLogic import when terms are not otherwise specified Trimethoprim/Sulfametho $ <=20 S Invalid Interpretation Code [facility] Work Phone: Microbiology: (P) Culture, U rineon 02-05-2017 GE use only - for LinkLogic import when terms are not otherwise specified . Invalid Interpretation Code [facility] Work Phone: Vital Signs Date Time Vital Sign Value Performing Clinician Vikram silva 04-28-2025 10:57-0400 Body height 165.[address] Litzy Vazquez MD Work Phone: [facility] 04-28-2025 10:57-0400 Body mass index (BMI) [Ratio] 31.9 kg/m2 Dr. Litzy Vazquez MD Work Phone: [facility] 04-28-2025 10:57-0400 Body temperature 97.3 [degF] Dr. Litzy Vazquez MD Work Phone: [facility] 04-28-2025 10:57-0400 Body weight 87.[address] Litzy Vazquez MD Work Phone: 4(394)159-159650 [place] [address] 04-28-2025 10:57-0400 Diastolic blood pressure 78 mm[Hg] Dr. Litzy Vazquez MD Work Phone: 6(133)011-932350 [place] [address] 04-28-2025 10:57-0400 Heart rate 74 /min Dr. Litzy Vazquez MD Work Phone: 1(592)009-588650 [place] [address] 04-28-2025 10:57-0400 Systolic blood pressure 118 mm[Hg] Dr. Litzy Vazquez MD Work Phone: 2(078)964-898550 [place] [address] 03-31-2025 13:29-0400 Body height 165.[address] Litzy Vazquez MD Work Phone: 5(936)589-185850 [place] [address] 03-31-2025 13:29-0400 Body mass index (BMI) [Ratio] 32.4 kg/m2 Dr. Litzy Vazquez MD Work Phone: 5(549)091-770350 [place] [address] 03-31-2025 13:29-0400 Body temperature 98.3 [degF] Dr. Litzy Vazquez MD Work Phone: 1(572)447-048950 [place] [address] 03-31-2025 13:29-0400 Body weight 88.[address] Litzy Vazquez MD Work Phone: 3(786)690-799950 [place] [address] 03-31-2025 13:29-0400 Diastolic blood pressure 71 mm[Hg] Dr. Litzy Vazquez MD Work Phone: 6(288)003-323950 [place] [address] 03-31-2025 13:29-0400 Heart rate 83 /min Dr. Litzy Vazquez MD Work Phone: 2(954)856-286650 [place] [address] 03-31-2025 13:29-0400 Systolic blood pressure 122 mm[Hg] Dr. Litzy Vazquez MD Work Phone: 4(801)112-771050 [place] [address] 02-24-2025 10:22-0400 Body height 165.[address] Litzy Vazquez MD Work Phone: 9(138)010-147150 [place] [address] 02-24-2025 10:16-0400 Body mass index (BMI) [Ratio] 33.7 kg/m2 Dr. Litzy Vazquez MD Work Phone: [facility] 02-24-2025 10:16-0400 Body weight 92.[address] Litzy Vazquez MD Work Phone: [facility] 02-24-2025 10:16-0400 Diastolic blood pressure 82 mm[Hg] Dr. Litzy Vazquez MD Work Phone: 7(364)134-728250 [place] [address] 02-24-2025 10:16-0400 Systolic blood pressure 140 mm[Hg] Dr. Litzy Vazquez MD Work Phone: 9(578)288-901550 [place] [address] 12-02-2024 12:59-0400 Body mass index (BMI) [Ratio] 32.4 kg/m2 Dr. Litzy Vazquez MD Work Phone: 2(504)336-095050 [place] [address] 12-02-2024 12:59-0400 Body weight 88.[address] Litzy Vazquez MD Work Phone: 8(588)249-223950 [place] [address] 12-02-2024 12:59-0400 Diastolic blood pressure 82 mm[Hg] Dr. Litzy Vazquez MD Work Phone: 3(141)724-716050 [place] [address] 12-02-2024 12:59-0400 Systolic blood pressure 136 mm[Hg] Dr. Litzy Vazquez MD Work Phone: 8(334)231-801750 [place] [address] 09-21-2024 11:10-0500 Body temperature 98.4 [degF] Dr. Litzy Vazquez MD Work Phone: 0(217)181-252890 [place] [address] 09-21-2024 11:10-0500 Diastolic blood pressure 63 mm[Hg] Dr. Litzy Vazquez MD Work Phone: 0(737)318-659490 [place] [address] 09-21-2024 11:10-0500 Heart rate 101 /min Dr. Litzy Vazquez MD Work Phone: 4(332)193-648950 [place] [address] 09-21-2024 11:10-0500 Respiratory rate 20 /min Dr. Litzy Vazquez MD Work Phone: 5(979)658-029390 [place] [address] 09-21-2024 11:10-0500 SaO2% (BldA) [Mass fraction] 100 % Dr. Litzy Vazquez MD Work Phone: 0(551)586-867590 [place] [address] 09-21-2024 11:10-0500 Systolic blood pressure 113 mm[Hg] Dr. Litzy Vazquez MD Work Phone: 8(028)901-230250 [place] [address] 09-21-2024 07:13-0500 Body mass index (BMI) [Ratio] 35.6 kg/m2 Dr. Litzy Vazquez MD Work Phone: 5(427)177-760490 [place] [address] 09-21-2024 07:13-0500 Body weight 97.[address] Litzy Vazquez MD Work Phone: 8(867)756-061650 [place] [address] 09-21-2024 07:10-0500 Body height 165.[address] Litzy Vazquez MD Work Phone: 4(095)409-470650 [place] [address] 07-29-2024 11:11-0500 Body mass index (BMI) [Ratio] 33.3 kg/m2 Dr. Litzy Vazquez MD Work Phone: 9(180)878-937250 [place] [address] 07-29-2024 11:11-0500 Body weight 90.[address] Litzy Vazquez MD Work Phone: 9(271)437-237950 [place] [address] 07-29-2024 11:11-0500 Diastolic blood pressure 78 mm[Hg] Dr. Litzy Vazquez MD Work Phone: 0(901)712-322290 [place] [address] 07-29-2024 11:11-0500 Systolic blood pressure 134 mm[Hg] Dr. Litzy Vazquez MD Work Phone: 9(790)509-544009 [address] 07-03-2023 09:23-0500 Body height 165.[address] True Vazquez Work Phone: 4(864)729-527650 [place] [address] 07-03-2023 09:22-0500 Body mass index (BMI) [Ratio] 33.6 kg/m2 Dr. True Vazquez Work Phone: 5(064)995-805250 [place] [address] 07-03-2023 09:22-0500 Body weight 91.[address] True Vazquez Work Phone: [facility] 07-03-2023 09:22-0500 Diastolic blood pressure 70 mm[Hg] Dr. True Vazquez Work Phone: [facility] 07-03-2023 09:22-0500 Systolic blood pressure 122 mm[Hg] Dr. True Vazquez Work Phone: [facility] 01-10-2023 11:38-0400 Body height 165.[address] True Vazquez Work Phone: [facility] 01-10-2023 11:28-0400 Body mass index (BMI) [Ratio] 33.6 kg/m2 Dr. True Vazquez Work Phone: [facility] 01-10-2023 11:28-0400 Body weight 91.[address] True Vazquez Work Phone: [facility] 01-10-2023 11:28-0400 Diastolic blood pressure 82 mm[Hg] Dr. True Vazquez Work Phone: [facility] 01-10-2023 11:28-0400 Systolic blood pressure 134 mm[Hg] Dr. True Vazquez Work Phone: [facility] 10-11-2022 11:13-0500 Body height 165.[address] True Vazquez Work Phone: [facility] 10-11-2022 11:05-0500 Body mass index (BMI) [Ratio] 33.5 kg/m2 Dr. True Vazquez Work Phone: [facility] 10-11-2022 11:05-0500 Body weight 91.[address] True Vazquez Work Phone: [facility] 10-11-2022 11:05-0500 Diastolic blood pressure 82 mm[Hg] Dr. True Vazquez Work Phone: [facility] 02-22-2023 11:05-0500 Systolic blood pressure 146 mm[Hg] Dr. True Vazquez Work Phone: [facility] 06-06-2022 10:32-0400 Body height 165.[address] True Vazquez Work Phone: [facility] Work Phone: 06-06-2022 10:21-0400 Body mass index (BMI) [Ratio] 31.9 kg/m2 Dr. True Vazquez Work Phone: [facility] Work Phone: 06-06-2022 10:21-0400 Body weight 87.[address] True Vazquez Work Phone: [facility] Work Phone: 06-06-2022 10:21-0400 Diastolic blood pressure 72 mm[Hg] Dr. True Vazquez Work Phone: [facility] Work Phone: 06-06-2022 10:21-0400 Systolic blood pressure 134 mm[Hg] Dr. True Vazquez Work Phone: [facility] Work Phone: 05-02-2022 03:25-0400 Diastolic blood pressure 78 mm[Hg] Dr. True Vazquez Work Phone: [facility] Work Phone: 05-02-2022 03:25-0400 Heart rate 83 /min Dr. True Vazquez Work Phone: [facility] Work Phone: 05-02-2022 03:25-0400 Respiratory rate 18 /min Dr. True Vazquez Work Phone: [facility] Work Phone: 05-02-2022 03:25-0400 SaO2% (BldA) [Mass fraction] 98 % Dr. True Vazquez Work Phone: [facility] Work Phone: 05-02-2022 03:25-0400 Systolic blood pressure 144 mm[Hg] Dr. True Vazquez Work Phone: [facility] Work Phone: 05-01-2022 23:08-0400 Body height 165.[address] True Vazquez Work Phone: [facility] Work Phone: 05-01-2022 23:08-0400 Body mass index (BMI) [Ratio] 33.2 kg/m2 Dr. True Vazquez Work Phone: [facility] Work Phone: 05-01-2022 23:08-0400 Body temperature 97.7 [degF] Dr. True Vazquez Work Phone: [facility] Work Phone: 05-01-2022 23:08-0400 Body weight 90.[address] True Vazquez Work Phone: [facility] Work Phone: 01-30-2022 11:24-0400 Body height 162.[address] True Vazquez Work Phone: [facility] Work Phone: 01-30-2022 11:24-0400 Body mass index (BMI) [Ratio] 33.3 kg/m2 Dr. True Vazquez Work Phone: [facility] Work Phone: 01-30-2022 11:24-0400 Body weight 88.[address] True Vazquez Work Phone: [facility] Work Phone: 01-30-2022 11:24-0400 Diastolic blood pressure 74 mm[Hg] Dr. True Vazquez Work Phone: [facility] Work Phone: 01-30-2022 11:24-0400 Systolic blood pressure 126 mm[Hg] Dr. True Vazquez Work Phone: [facility] Work Phone: 11-02-2021 11:43-0400 Body mass index (BMI) [Ratio] 34.4 kg/m2 Dr. True Vazquez Work Phone: [facility] Work Phone: 11-02-2021 11:43-0400 Body weight 91.[address] True Vazquez Work Phone: [facility] Work Phone: 11-02-2021 11:43-0400 Diastolic blood pressure 78 mm[Hg] Dr. True Vazquez Work Phone: [facility] Work Phone: 11-02-2021 11:43-0400 Systolic blood pressure 120 mm[Hg] Dr. True Vazquez Work Phone: [facility] Work Phone: 04-11-2017 13:07-0400 BMI (Body Mass Index) 34.59 kg/m2 Stephanie Dacosta MD [facility] [employer] Work Phone: 04-11-2017 13:07-0400 Body Temperature 97.9 [degF] Stephanie Dacosta MD [facility] [employer] Work Phone: 04-11-2017 13:07-0400 BP Diastolic 73 mm[Hg] Stephanie Dacosta MD [facility] [employer] Work Phone: 04-11-2017 13:07-0400 BP Systolic 117 mm[Hg] Stephanie Dacosta MD [facility] [employer] Work Phone: 04-11-2017 13:07-0400 Height 160.02 cm Stephanie Dacosta MD [facility] [employer] Work Phone: 04-11-2017 13:07-0400 Pulse (Heart Rate) 60 /min Stephanie Dacosta MD [facility] [employer] Work Phone: 04-11-2017 13:0400 Respiratory Rate 18 /min Stephanie Dacosta MD [facility] Work Phone: 04-11-2017 13:040 Weight 88.59 kg Stephanie Dacosta MD [facility] Work Phone: Encounters Encounter Date Encounter Type Care Provider Facility Start: 05-26-2025 ambulatory Lindsayclaudia Alvarezs [employer] Facil ity:[facility] Start: 05-05-2025 End: 05-05-[address] Litzy Vazquez MD Work Phone: -[facility] Start: 05-05-2025 End: 05-05-[address] Litzy Vazquez MD -[facility] Start: 05-05-2025 End: 05-05-2025 [facility] Start: 04-28-2025 End: 04-28-[address] Kiah Guajardo MD -[facility] Work Phone: Start: 04-28-2025 End: 04-28-[address] [facility] Start: 03-31-2025 End: 03-31-[address] Kiah Guajardo MD -[facility] Work Phone: Start: 03-31-2025 End: 03-31-[address] Litzy Vazquez MD Work Phone: -[facility] Start: 03-02-2025 End: 03-02-[address] Litzy Vazquez MD Work Phone: -[facility] Start: 03-02-2025 End: 03-02-[address] Angelo Arias MD -[facility] Work Phone: Start: 03-02-2025 End: 03-02-2025 [facility]ulatory [facility] Start: 02-27-2025 End: 02-27-[address] Litzy Vazquez MD Work Phone: -[facility] Start: 02-27-2025 End: 02-27-[address] Angelo Arias MD -[facility] Work Phone: Start: 02-27-2025 End: 02-27-2025 ambulatory Litzy Vazquez Facility:[facility] Start: 02-24-2025 End: 02-24-2025 Patient encounter procedure Lindsay KRUEGER -[facility] Work Phone: Start: 02-24-2025 End: 02-24-[address] Litzy Vazquez MD Work Phone: -[facility] Start: 02-17-2025 Non-patient / Non-visit Dr. Kiah Guajardo MD -[facility] Work Phone: Start: 12-10-2024 ambulatory Litzy Vazquez Faci lity:[facility] Start: 12-02-2024 End: 12-02-2024 Patient encounter procedure Lindsay KRUEGER -[facility] Work Phone: Start: 12-02-2024 End: 12-02-2024 ambulatory Litzy Vazquez Facility:[facility] Start: 10-21-2024 End: 10-21-[address] Litzy Vazquez MD Work Phone: [facility] Work Phone: Start: 10-21-2024 End: 10-21-[address] Litzy Vazquez MD -[facility] Work Phone: Start: 10-21-2024 End: 10-21-2024 ambulatory Litzy Vazquez Facility:[facility] Start: 10-08-2024 End: 10-08-[address] Litzy Vazquez MD -Outpatient Bone Densitometry Work Phone: Start: 10-08-2024 End: 10-08-2024 ambulatory Litzy Vazquez Facility:[facility] Start: 09-21-2024 End: 09-21-2024 Emergency department patient visit Dr. Haseeb Morales DO -Emergency Department Work Phone: Start: 07-29-2024 End: 07-29-2024 Patient encounter procedure Lindsay KRUEGER -[facility] Work Phone: Start: 07-29-2024 End: 07-29-2024 ambulatory Litzy [facility] Facility:[facility] Start: 06-12-2024 End: 06-12-2024 ambulatory Litzy [facility] Facility:[facility] Start: 06-07-2024 End: 06-10-2024 ambulatory MUSTAPHA HUNT [facility] Start: 06-03-2024 End: 06-03-2024 ambulatory Litzy Vazquez Facility:[facility] Start: 08-09-2023 End: 08-09-[address] True Vazquez Work Phone: [facility] Work Phone: Start: 08-09-2023 End: 08-09-[address] True Vazquez Work Phone: [facility] Start: 07-03-2023 End: 07-03-[address] True Vazquez Work Phone: [facility] Work Phone: Start: 04-10-2023 End: 04-10-[address] True Vazquez Work Phone: [facility] Work Phone: Start: 04-10-2023 End: 04-10-[address] True Vazquez Work Phone: [facility] Start: 01-10-2023 End: 01-10-[address] True Vazquez Work Phone: [facility] Work Phone: Start: 01-01-2023 End: 01-01-[address] True Vazquez Work Phone: [facility] Start: 10-17-2022 End: 10-17-[address] True Vazquez Work Phone: [facility] Work Phone: Start: 10-17-2022 End: 10-17-[address] True Vazquez Work Phone: [facility] Start: 10-11-2022 End: 10-11-[address] True Vazquez Work Phone: [facility] Start: 10-04-2022 End: 10-04-[address] True Vazquez Work Phone: [facility] Work Phone: Start: 10-04-2022 End: 10-04-[address] True Vazquez Work Phone: [facility]-Outpatient Bone [facility]ometry Start: 10-03-2022 End: 10-03-[address] True Vazquez Work Phone: [facility] Start: 08-08-2022 End: 08-08-[address] True Vazquez Work Phone: [facility] Work Phone: Start: 08-08-2022 End: 08-08-[address] True Vazquez Work Phone: [facility] Start: 06-06-2022 End: 06-06-[address] True Vazquez Work Phone: [facility] Start: 05-01-2022 End: 05-02-2022 Emergency department patient visit Dr. True Vazquez Work Phone: [facility]-Emergency Department Start: 05-01-2022 End: 05-02-2022 Non-patient / Non-visit Dr. True Vazquez Work Phone: [facility] Start: 02-01-2022 End: 02-01-[address] True Vazquez Work Phone: [facility] Start: 01-30-2022 End: 01-30-[address] True Vazquez Work Phone: [facility] Start: 11-02-2021 End: 11-02-[address] True Vazquez Work Phone: [facility] Start: 03-13-2017 End: 03-15-2017 Ambulatory MEENA SVETA [facility] Start: 03-13-2017 End: 03-21-2017 Ambulatory BRAVO DANIEL [facility] Start: 03-08-2017 End: 03-08-2017 Ambulatory MEENA (FEL) [facility] Procedures Date Procedure Procedure Detail Performing Clinician Start: 10-21-[address] Jennifer Vazquez MD Work Phone: Start: 10-08-2024 Dual [...] Detail Author Start: 04-11-2017 End: 04-11-2017 Appointment [facility] Work Phone: Patient Education [facility] Work Phone: Patient referral [facility] Work Phone: [facility] Immunizations Immunization Date Immunization Notes Care Provider Elen gonsales 05-07-2018 influenza, injectabl e, quadrivalent, preservative free Dr. True Vazquez Work Phone: [facility] 05-07-2018 influenza, seasonal, injectable Dr. True Vazquez Work Phone: [facility] 05-20-[address] True Vazquez Work Phone: [facility] 06-03-[address] True Vazquez Work Phone: [facility] 06-21-[address] Long Vazquez Work Phone: [facility] Work Phone: 06-21-2011 pneumococcal vaccine , unspecified formulation Dr. True Vazquez Work Phone: [facility] Payers Date Payer Category Payer Self-pay [id number] 2024 Unknown [id number] 22 [id number] 2013 Medicare [id number] 1945 Unknown [id number] 2.16.8 [id number] Unknown [id number] 2.16.8 [id number] Unknown [id number] 2.16.8 [id number] Unknown [id number] 2.16.8 [id number] Unknown [id number] 2.16.8 [id number] Unknown [id number] 2.16.8 [id number] Unknown [id number] 2.16.8 [id number] Unknown [id number] 2.16.8 [id number] Unknown [id number] 2.16.8 [id number] Unknown [id number] 2.16.8 [id number] Unknown [id number] 2.16.8 [id number] Unknown [id number] 2.16.8 [id number] Unknown [id number] 2.16.8 [id number] Unknown [id number] 2.16.8 [id number] Unknown [id number] 2.16.8 [id number] Unknown [id number] 2.16.8 [id number] Social History Date Type Detail Facility Start: 01-30-2022 End: 07-03-2023 Tobacco smoking status SCIS Unknown if ever smoked [facility] Start: 02-01-2021 None [facility] Start: 02-01-2021 Homeless [facility] Start: 02-01-2021 Non-smoker [facility] Start: 1945 Sex Assigned At Female [facility] Start: 09-21-2024 Tobacco smoking stat us SCIS Never smoked tobacco (finding) [facility] Start: 11-02-2024 Sex Female (finding) [facility] Sex Female [facility] Mental Status Date Assessment Result Facility 05-01-2022 Cognitive function Level Of Cons ciousness Awake;Alert;Appropriate;Follow s Commands [facility] Work Phone: Clinical Notes 06-08-2024 to [...] 2025 10:25am Urge incontinence acute 2024 10:25am [facility] Work Phone: 1(987) 258-639704-15-2025 Evaluation note* Diagnosis Onset Date Resolution Status Admit Date Cystocele and rectocele with incomplete uterovaginal prolapse acute December 02, 2024 12:57pm Pessary maintenance acute December 02, 2024 12:57pm [facility] Work Phone: 1(343) 849-281404-15-2025 Evaluation note* Diagnosis Onset Date Resolution Status Admit Date Cystocele and rectocele with incomplete uterovaginal prolapse acute December 02, 2024 12:57pm Pessary maintenance acute December 02, 2024 12:57pm Cystocele and rectocele with incomplete uterovaginal prolapse acute February 24, 2025 10:13am Pessary maintenance acute February 24, 2025 10:13am [facility] Work Phone: 1(335) 949-771704-15-2025 Evaluation note* Diagnosis Onset Date Resolution Status Admit Date Cystocele and rectocele with incomplete uterovaginal prolapse acute December 02, 2024 12:57pm Pessary maintenance acute December 02, 2024 12:57pm Cystocele and rectocele with incomplete uterovaginal prolapse acute February 24, 2025 1 0:13am Pessary maintenance acute February 24, 2025 10:13am Nocturia acute March 31, 025 12:52pm Urge incontinence acute March 31, 2025 12:52pm [facility] Work Phone: 1(771) 911-166803-04-2025 Radiology Diagnostic study note [facility] Imaging Services [address] [place], [place] [address] Breast Complete Unilateral MR#: [id number] Acct: [id number] Name: SINDY SWEENEY Rep #: [id number] : 1945 F 79 From: Lily Mcneill MD PCP: Dr. Litzy Vazquez MD Status: REG CLI Study:Breast Complete Unilateral Date of Exam : 10/21/24 Exam# [id number] Ordering Dr: Aakash Vazquez MD PROCEDURE: DIAG [...] code: Routine Follow-up Reading Location: [facility] CC: Dr. Litzy Vazquez MD ~ Supply Tech: Signed [facility]12-10-2024 Evaluation note* Diagnosis Onset Date Resolution Status Admit Date Cystocele and rectocele with incomplete uterovaginal prolapse acute July 29 024 11:08am Pessary maintenance acute Decem 2023 11:08am Incontinence chronic July 11:08am [facility] Work Phone: 1(521) 839-352010-23-2024 [facility] ACCOUNT SEX AGE ADMIT DISCHARGE PT MED. RECORD# NUMBER DATE DATE TYPE ZAHRA [id number] F 78 06/07/24 2 SINDY [place] [id number] ROOM: 302MO DATE OF : 41 DICTATING PHYSICIAN: Yuniel [...] SWEENEY History & Physical SINDY SWEENEY :1945 Aiotra. She does not smoke nor drink alcohol. [...] with outpatient follow-up. Page 2 of 4 ZAHRASINDY Shyla History & Physical ZAHRA DAKOTAHAna Cristina [place] :1945 2. Leg cramps, which may be secondary to a new medication. However, she has had difficulty with this in the past. Potassium was within normal limits. I did order magnesium as well as a muscle relaxer and also acetamin (more content not included)...[facility]10-20-2024 NoteDischarge Instructions Discharge Summary [facility] [address] [place] [address] [id number] 06/07/2024 Patient: SINDY SWEENEY Sex: Female : 1945 Age: 78y Thank you for visiting [facility]. You have been evaluated today by Gibson Thrasher D.O. 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 [place], [place] [id number] 06/07/2024 Patient: SINDY SWEENEY Sex: Female : 1945 Age: 78y 1 of 3 Discharge Instructions Thank you for visiting [facility]. You have been evaluated today by [...] loss of consciousness Seizure 3 of 3[facility] Diagnosis Onset Date Resolution Status Cystocele and rectocele with incomplete uterovaginal prolapse acute Pessary maintenance acute Cystocele and rectocele with incomplete uterovaginal prolapse acute Pessary maintenance acute [facility] Work Phone: Evaluation note* Diagnosis Onset Date Resolution Status Cystocele and rectocele with incomplete uterovaginal prolapse acute Pessary maintenance acute [facility] Work Phone: Evaluation note* Diagnosis Onset Date Resolution Status Cystocele and rectocele with incomplete uterovaginal prolapse acute Pessary maintenance acute Bacterial vaginosis noneacti ve Cystocele and rectocele with incomplete uterovaginal prolapse acute Pessary maintenance acute [facility] Work Phone: Evaluation note* Diagnosis Onset Date Resolution Status Cystocele and rectocele with incomplete uterovaginal prolapse acute Pessary maintenance acute Incontinence chronic [facility] Work Phone: Hospital Discharge instructions Additional Instructions As discussed, please consider talking to Dr. Vazquez about a Holter monitor. This would be a 48-hour heart monitor that may catch any episodes of dizziness and feeling as if you are going to pass out.[facility] Work Phone: Reason for referral (narrative)No reason for referral information availableWD[facility]lap [facility] Work Phone: Summary Purpose Family History No Family History Records Found Relationship Condition Age at Onset Recorded Date/T dmitri father Malignant neoplasm of lung Unknown Advance Directives No Advanced Directives Records Found Advance Directive Response Recorded Date/ Time Advance Directives No March 09 7:05pm Living Will No July 12, 3:07am Power of Pasteuriser Operator No July 12, 2021 3:07am Advance Directive Response Recorded Date/ Time Advance Directives No March 09 7:05pm Living Will No May 01, 2022 11:10pm Power of Pasteuriser Operator No April 11:10pm Advance Directive Response Recorded Date/ Time Advance Directives No March 09 6:05pm Living Will No May 01, 2022 10:10pm Power of Pasteuriser Operator No April 10:10pm Advance Directive Response Recorded Date/ Time Living Will No May 01, 2022 11:10pm Power of Pasteuriser Operator No April 11:10pm Living Will No September 21 8:13am Power of Pasteuriser Operator No September 21, 2024 8:13am Advance Directives No March 09 7:05pm Advance Directive Response Recorded Date/ Time Advance Directives No March 09 7:05pm Chief Complaint and Reason for Visit Chief Complaint 3 mo pessary check 3 month pessary check Reason for Visit Cystocele and rectoc [place] with incomplete uterovaginal prolapse Pessary maintenance Cystocele and rectocele with incomplete uterovaginal prolapse 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 3 month pessary chec k dizziness Reason for Visit Cystocele and rectoc [place] with incomplete uterovaginal prolapse 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 dizziness dizziness 4M PESSARY CHECK Reason for Visit Cystocele and rectoc [place] with incomplete uterovaginal prolapse 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 3 MO PESSARY CHECK SCREENING/OSTEO 1 WK F/U Reason for Visit Cystocele and rectoc [place] with incomplete uterovaginal prolapse Pessary maintenance Bacterial vaginosis Cystocele and rectocele with incomplete uterovaginal prolapse 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 3 MO PESSARY CHECK SCREENING/OSTEO 1 WK F/U KNEE PAIN Reason for Visit Cystocele and rectoc [place] with incomplete uterovaginal prolapse Pessary maintenance Bacterial vaginosis Cystocele and rectocele with incomplete uterovaginal prolapse 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 3 MO FU Reason for Visit Cystocele and rectoc [place] with incomplete uterovaginal prolapse 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 pessary fu Reason for Visit Cystocele [...] section and content) DATE CREATED AUTHOR 02/12/2018 [facility] DATE CREATED AUTHOR AUTHOR'S ORGANIZ ATION 06/11/2024 [facility] DATE CREATED AUTHOR AUTHOR'S ORGANIZ ATION 05/23/2025 [facility] Goals (unrecognized section and content) [...] Provider, Refe rring Provider Active Lindsay Rahman CLOTH WIRE WEAVER, CLOTH WIRE WEAVER-C Attending Provider Active Team Status: Inactive [...] 2024 End: July 29, 2024 Lindsay Rahman CLOTH WIRE WEAVER, CLOTH WIRE WEAVER-C Attending Provider Active Start: July 29, 2024 End: July 29, 2024 Team Status: Inactive Member Role Status Dates Dr. Litzy Vazquez MD Primary Care Provider Acti ve Start: September 21, 2024 End: September 21, 2024 Dr. Haseeb Morales DO Attending Provider Activ e Start: September 21, 2024 End: September 21, 2024 DrJani Morales DO Emergency Provider Activ e Start: [...] 2024 End: December 02, 2024 Lindsay Rahman CLOTH WIRE WEAVER, CLOTH WIRE WEAVER-C Attending Provider Active Start: December 02, 2024 End: December 02, 2024 Team Status: Inactive Member Role/Relationship Status Dates Dr. Litzy Vazquez MD Primary Care Provider Acti ve Start: February 24, 2025 End: February 24, 2025 Dr. Litzy Vazquez MD Referring Provider Active Start: February 24, 2025 End: February 24, 2025 Lindsay Rahman CLOTH WIRE WEAVER, CLOTH WIRE WEAVER-C Attending Provider Active Start: February 24, [...] Active St art: March 02, 2025 Dr. Angleo Arias MD Referring Provider Active St art: [...] 2025 End: February 24, 2025 Lindsay Rahman CLOTH WIRE WEAVER, CLOTH WIRE WEAVER-C Attending Provider Active Start: February 24, [...] April 28, 2025 End: April 28, 2025 Team Status: Active Member Role/Relationship Status Dates Dr. Litzy Vazquez MD Primary care physician Act jackie Team Status: Inactive Member Role/Relationship Status Dates Dr. Litzy Vazquez MD Primary care physician Act jackie Start: February 17, 2025 Dr. Kiah Guajardo MD Attending physician Active Start: February 17, 2025 Team Status: Inactive Member Role/Relationship Status Dates Dr. Litzy Vazquez MD Primary care physician Act jackie Start: February 24, 2025 End: February 24, 2025 Dr. Litzy Vazquez MD Referring Provider Active Start: February 24, 2025 End: February 24, 2025 Lindsay Rahman NP, [employer]OTH WIRE WEAVER-C Attending physician Active Start: February 24, 2025 End: February 24, 2025 Team Status: Inactive Member Role/Relationship Status Dates Dr. Litzy Vazquez MD Primary care physician Act jackie Start: February 27, 2025 End: February 27, 2025 Dr. Angelo Arias MD Attending physician Active S tart: February 27, 2025 End: February 27, 2025 Dr. Angelo Arias MD Referring Provider Active St art: February 27, 2025 End: February 27, 2025 Team Status: Inactive Member Role/Relationship Status Dates Dr. Litzy Vazquez MD Primary care physician Act jackie Start: March 02, 2025 End: March 02, 2025 Dr. Angelo Arias MD Attending physician Active S tart: March 02, 2025 End: March 02, 2025 Dr. Angelo Arias MD Referring Provider Active St art: March 02, 2025 End: March 02, 2025 Team Status: Inactive Member Role/Relationship Status Dates Dr. Litzy Vazquez MD Primary care physician Act jackie Start: March 31, 2025 End: March 31, 2025 Dr. Litzy Vazquez MD Referring Provider Active Start: March 31, 2025 End: March 31, 2025 Dr. Kiah Guajardo MD Attending physician Active Start: March 31, 2025 End: March 31, 2025 Team Status: Inactive Member Role/Relationship Status Dates Dr. Litzy Vazquez MD Primary care physician Act jackie Start: April 28, 2025 End: April 28, 2025 Dr. Litzy Vazquez MD Referring Provider Active Start: April 28, 2025 End: April 28, 2025 Dr. Kiah Guajardo MD Attending physician Active Start: April 28, 2025 End: April 28, 2025 Team Status: Inactive Member Role/Relationship Status Dates Dr. Litzy Vazquez MD Primary care physician Act jackie Start: May 05, 2025 End: May 05, 2025 Dr. Litzy Vazquez MD Attending physician Active Start: May 05, 2025 End: May 05, 2025 FOR RECORDS PERTAINING TO PATIENTS WHO [...] BE BASED ON THE PRIMARY CLINICAL RECORDS. [facility]. provides no warranty or guarantee of the accuracy or completeness of information in this document.
[2025-05-23] MEDS: 0.9% Normal Saline (500mL Bag) 500 ML 1000 ML IV (19:36)
[2025-05-23 19:46] LABS: Hematocrit 35.9 % (37-47); Hemoglobin 11.5 g/dL (12.0-15.0); Immature Granulocytes Count 0.020 X10^3/uL (0.0-0.0); Mean Corp Hgb Conc 32.0 g/dL (32-36); Mean Corpuscular Volume 93.0 fL (81-99); Mean Platelet Vol. 9.9 fl (6.2-12.0); NRBC Flagged by Analyzer 0 % (0-5); POSITIVE DIFFERENTIAL YES; Platelet Count 160 K/mm3 (150-450); RBC Distribution Width CV 18.6 % (11.6-14.6); RBC Distribution Width SD 63.1 fl (35.1-43.9); Red Blood Count 3.86 M/mm3 (4.2-5.4); White Blood Count 8.0 K/mm3 (4.4-11.0)
--- NOTE | 2025-05-23 19:52 | RAD_ITS ---
PROCEDURE: CHEST 1 VIEW (PORTABLE) 05/23/2025 REASON FOR EXAM: PALPITATIONS/CHEST PAIN TECHNIQUE: Frontal view of the chest. COMPARISON: None available. FINDINGS: Hardware: The support lines and tubes are in stable and satisfactory position. Heart: The heart size is normal. Lungs: The lungs are clear. No pneumothorax or pleural effusion. Bones: The bones are unremarkable. RAD/Chest 1 View (Portable) IMPRESSION: No Acute Findings. Reading [facility]
[2025-05-23 20:07] LABS: Lipase 13 U/L (13-75); Troponin T High Sensitivity 14 ng/L (<=14)
[2025-05-23 20:08] LABS: Prothrombin Time (Protime)PT. 24.0 SECONDS (11.7-14.9)
[2025-05-23 20:29] VITALS: BP 149/58; PULSE 94; RESP 20; O2SAT 97
[2025-05-23 20:32] LABS: Mucous, Urine 0 SEEN /hpf (<or=2+)
[2025-05-23 20:49] LABS: AST(SGOT) 20 U/L (<=31); Alanine Aminotransfer ALT/SGPT 10 U/L (<=34); Albumin, Serum 3.6 g/dL (3.4-4.8); Alkaline Phosphatase 55 U/L (35-104); Anion Gap 13 (5-15); BUN 11 mg/dL (4-19); BUN/Creat Ratio 13.8 RATIO (10-20); Calcium,Total 8.7 mg/dL (7.6-11.0); Carbon Dioxide 22.7 mmol/L (21.0-32.0); Chloride 100 mmol/L (98-108); Estimated Creatinine Clearance 60.41 ml/min (50-250); Globulin 2.6 g/dL (2.2-4.2); Glucose 102 mg/dL (70-99); Potassium 3.9 mmol/L (3.3-5.1)
[2025-05-23 20:51] LABS: Glucose, Dipstick 1000 mg/dl (Normal); Ketone-Dipstick Negative (Negative); Leukocyte Esterase-Dipstick 500 /ul (Negative); Nitrite-Dipstick Negative (Negative); Occult Blood-Urine 250 /ul (Negative); Protein-Dipstick 30 mg/dl (Negative); Specific Gravity, Urine 1.020 (1.002-1.030); Urine Bilirubin Dipstick Negative (Negative)
[2025-05-23 21:07] LABS: Color, Urine Yellow (Yellow)
[2025-05-23 21:40] LABS: Red Blood Cells-Urine 10-25 SEEN /hpf (0-5)
[2025-05-23 21:41] LABS: Squamous Epithelial Cells - UA 0-5 SEEN /hpf (5-10)
[2025-05-23 22:00] VITALS: BP 149/65; PULSE 84; RESP 19; O2SAT 96
[2025-05-23 22:05] LABS: Troponin T High Sens 2 HR 15 ng/L (<=14)
[2025-05-23 22:38] VITALS: BP 134/52; PULSE 83; RESP 19; TEMP 36.6; O2SAT 99
== END 2025-05-23 23:01 | disposition home or self-care (01) ==
PROVIDERS: Emergency Provider Emergency Medicine; PCP Family Medicine; Visit Provider Emergency Medicine
DX: R11.2 Nausea with vomiting, unspecified (principal); R00.2 Palpitations; R19.7 Diarrhea, unspecified; R51.9 Headache, unspecified; E66.9 Obesity, unspecified; Z68.33 Body mass index [BMI] 33.0-33.9, adult; Z79.01 Long term (current) use of anticoagulants; Z86.718 Personal history of other venous thrombosis and embolism
CPT/HCPCS: 70450; 71045; 74177; 80053; 81001; 83690; 84484; 85025; 85610; 87631; 93005; 96361; 96374; 99285; P9612; Q9967; A4216

== ENCOUNTER → 2025-06-30 | Outpatient (CLI) | payer MEDICARE, SELFPAY ==
--- OUTSIDE RECORDS SUMMARY | 2025-06-30 12:39 | XMS RPT_ITS | CCD ---
Author Organization [facility] Care Team Providers Care Motor Vehicle Compliance Analyst Name Role Phone Stephanie Dacosta MD Unavailable Josefa HERRERA, Jazmyn Ac Unavailable Unavailable WSANurse Unavailable Unavailable MEENA BETANCOURT (FEL) Unavailable Unavailable STEPHANIE DACOSTA Unavailable Unavailable BRAVO DANIEL Unavailable Unavailable Dr. True Vazquez Primary Care Provider Dr. True Vazquez Referring Provider Josiah MANAGER SALES, MANAGER SALES-C Lindsay Attending Provider [phone] Dr. True Vazquez Primary Care Provider [phone] Dr. True Vazquez Referring Provider Josiah MANAGER SALES, MANAGER SALES-C Lindsay Attending Provider Dr. True Vazquez Primary Care Provider Dr. Pedro Moirn Attending Provider Dr. Ainsley Culver Referring Provider [phone] Dr. True Vazquez Referring Provider Josiah MANAGER SALES, MANAGER SALES-C Lindsay Attending Provider Dr. True Vazquez Primary Care Provider [phone] Dr. True Vazquez Referring Provider Josiah MANAGER SALES, MANAGER SALES-C Lindsay Attending Provider Dr. True Vazquez Primary Care Provider Dr. True Vazquez Referring Provider Josiah MANAGER SALES, MANAGER SALES-C Lindsay Attending Provider Dr. True Vazquez Primary Care Provider Dr. True Vazquez Referring Provider [place] MANAGER SALES, MANAGER SALES-C Lindsay Attending Provider MUSTAPHA COLLINS MD Admitting Unavailable LITZY VAZQUEZ MD Referring Unavailab LITZY Pearce MD Consulting Unavailab le MUSTAPHA COLLINS MD Attending Unavailable MUSTAPHA COLLINS MD Primary Care Unavailable PROVIDER, UNKNOWN Consulting Unavailable George HUNT, Dr. Mariscal Primary Care Provider George HUNT, Dr. Mariscal Referring Provider [phone] Josiah MANAGER SALES-CLindsay Attending Provider [facility] Dr[facility] Membreno [facility]ending [facility] Dr. Membreno Emergency Provider George HUNT, Dr. Mariscal Attending Provider George HUNT, Dr. Mariscal Primary Care Provider George HUNT, Dr. Mariscal Referring Provider Josiah MANAGER SALES-C, Lindsay Attending Provider Hugo HUNT, Dr. Stephens Attending Provider [phone] Hugo HUNT, Dr. Stephens Referring Provider [phone] Bennett HUNT, Dr. Dupont Attending Provider George HUNT, Dr. Mariscal Primary Care Provider George HUNT, Dr. Mariscal Referring Provider [phone] Josiah MANAGER SALES-C, Lindsay Attending Provider George HUNT, Dr. Mariscal Primary Care Physicia n Bennett HUNT, Dr. Dupont Attending Physician Josiah MANAGER SALES-C, Lindsay Attending Physician Hugo HUNT, Dr. Stephens Attending Physician [phone] George HUNT, Dr. Mariscal Attending Physician Dr. Carloz Lerma DO Emergency Department Physi yonis Ranney, Christopher Attending Unavailable Ranney, Christopher Primary Care Unavailable Ranney, Christopher Consulting Unavailable Ranney, Christopher Primary Care Unavailable Wyneski, Kiah Referring Unavailable Wyneski, Kiah Attending Unavailable Ranney, Christopher Attending Unavailable Ranney, Christopher Primary Care Unavailable Ranney, Christopher Referring Unavailable Ranney, Christopher Primary Care Unavailable Ranney, Christopher Referring Unavailable Josiah MANAGER SALES, Lindsay Attending Unavailable Ranney, Christopher Primary Care Unavailable Ranney, Christopher Referring Unavailable Josiah MANAGER SALES, Lindsay Attending Unavailable Ranney, Christopher Primary Care Unavailable Ranney, Christopher Referring Unavailable Wyneski, Kiah Attending Unavailable Ranney, Christopher Primary Care Unavailable Wyneski, Kiah Attending Unavailable Ranney, Christopher Referring Unavailable Josiah MANAGER SALES, Lindsay Attending Unavailable Ranney, Christopher Primary Care Unavailable Ranney, Christopher Referring Unavailable Wyneski, Kiah Attending Unavailable Ranney, Christopher Primary Care Unavailable Ranney, Christopher Referring Unavailable Ranney, Christopher Primary Care Unavailable Ranney, Christopher Referring Unavailable [place] MANAGER SALES, Lindsay Attending Unavailable Ranney, Christopher Primary Care Unavailable Ranney, Christopher Referring Unavailable [place] MANAGER SALES, Lindsay Attending Unavailable Ranney, Christopher Attending Unavailable Ranney, Christopher Primary Care Unavailable Ranney, Christopher Referring Unavailable Ranney, Christopher Primary Care Unavailable Arias, Angelo Referring Unavailable Arias, Angelo Attending Unavailable Ranney, Christopher Primary Care Unavailable Arias, Angelo Referring Unavailable Arias, Angelo Attending Unavailable Carloz Lerma Attending Unavailable Ranney, Christopher Primary Care Unavailable Ranney, Christopher Primary Care Unavailable Haseeb Morales Attending Unavailabl e Dr. Carloz Lerma DO Attending Physician Allergies Allergy Classification Reported Allergen(s) Allergy Type Date of Onset Reaction(s) Facility (2 sources) Latex rubber gloves drug allergy 7 rash [facility] Work Phone: (20 sources) Latex; Translations: [LATEX] Propensity to adverse reactions to drug (disorder) 7 AOF, Rash [facility] (1 source) oxyCODONE; Translations: [OXYCODONE] Drug Allergy 3 AOF [facility] Medications Current Medications Medication Drug Class(es) Dates Sig (Normalized) Sig (Original) acetaminophen 500 mg oral tablet (17 sources) Start: 03-09-2015 take 2 tablets by mouth twice daily as needed for pain Acetaminophen 500 MG tablet Active 1000 mg PO TWICE A DAY as needed for Pain March 09, 2015 12:00am Complies with drug therapy Start: 03-09-2015 take 1000 mg by mout h twice daily Acetaminophen Active 1000 MG PO TWICE A DAY March 08, 2015 11:00pm [id number] actuat albuterol 0.09 mg/actuat metered dose inhaler (17 sources) beta2-Adrenergic Agonist Start: 12-31-2016 Albut crystal Sulfate 1 INHALER inhaler Active 1 NMA INHALATION EVERY 4 HOURS NEEDED as needed for Sob &/Or Wheezing December 31, 2016 12:00am Complies with drug therapy Start: 12-31-2016 take 1 puff(s) by in halation every four hours as needed Albuterol Sulfate Active 1 PUFF INHALATION EVERY 4 HOURS NEEDED December 30, 2016 11:00pm betamethasone 0.5 mg/ml / clotrimazole 10 mg/ml topical cream (17 sources) Azole Antifungal, Corticosteroid Start: 07-12-2020 Clotrimazole-Betamethasone 1-0.05 % cream Active 1 NMA TOPICAL TWICE A DAY 45 14 1 July 12, 2020 1:00am Complies with drug therapy Start: 07-12-2020 Clotrimazole-B etamethasone Active 1 APPLIC TOPICAL TWICE A DAY 45 14 July 12, 2020 12:00am busPIRone hydrochloride 10 mg oral tablet (19 sources) Start: 08-27-2018 take 1 tablet by mouth three times daily Buspirone 10 mg tablet Active 10 mg PO THREE TIMES A DAY August 27, 2018 1:00am Complies with drug therapy Start: 04-11-2017 take 1 tablet by rosamaria th once daily BUSPIRONE HCL 10 MG TABS One tablet by mouth daily BUSPIRONE HCL [id number] Stephanie Dacosta MD Calcium Amino Acid Chelate 2 00 mg calcium tablet (6 sources) Start: 03-31-2025 Calcium Amino Acid Chelate 200 mg calcium tablet Active mg PO March 31, 2025 12:00am Complies with drug therapy Start: 03-31-2025 Start: 03-31-2025 Calcium Amino Acid Chelate 200 mg calcium tablet Active mg PO March 31, 2025 12:00am calcium ascorbate 500 mg oral tablet (14 sources) Start: 10-03-2022 take 1 tablet by mouth once daily Ascorbate Calcium (Vitamin C) 500 mg tablet Active 500 mg PO DAILY October 03, 2022 1:00am Complies with drug therapy cholecalciferol 0.625 mg oral capsule (6 sources) Vitamin D Start: 03-31-2025 take 1 capsule by mouth every week Cholecalciferol (Vitamin D3) 625 mcg (25,000 unit) capsule Active 625 ug PO EVERY WEEK March 31, 2025 12:00am Complies with drug therapy Denosumab (Prolia) 60 mg/mL syringe (2 sources) Start: 03-31-2025 Denosumab (Prolia) 60 mg/mL syringe Active 60 mg SC every 6 months March 31, 2025 12:00am esomeprazole 20 mg delayed release oral capsule (20 sources) Proton Pump Inhibitor Start: 10-23-2018 take 2 capsules by mouth once daily Esomeprazole Magnesium 20 MG capsule Active 40 mg PO DAILY October 23, 2018 1:00am Complies with drug therapy Start: 10-23-2018 take 40 mg by mouth once daily Esomeprazole Magnesium Active 40 MG PO DAILY October 23, 2018 12:00am Start: 04-11-2017 take 1 tablet by rosamaria once daily NEXIUM 40 MG PACK One tablet by mouth daily ESOMEPRAZOLE MAGNESIUM [id number] Stephanie Dacosta MD Start: 08-04-2013 End: 08-27-2018 take 1 capsule by mouth once daily Esomeprazole Magnesium 40 MG capsule Discontinued 40 mg PO DAILY August 04, 2013 1:00am August 27, 2018 12:07pm 24 hr fesoterodine fumarate 8 mg extended release oral tablet (16 sources) Start: 03-31-2025 take 1 tablet by mouth once daily Fesoterodine 8 mg tablet extended release 24 hr Active 8 mg PO daily March 31, 2025 12:00am Complies with drug therapy Start: 11-14-2023 End: 03-31-2025 take 1 tablet by mouth once daily Fesoterodine 4 mg tablet extended release 24 hr Discontinued 4 mg PO DAILY November 14, 2023 12:00am March 31, 2025 1:22pm fluticasone propionate 0.05 mg/actuat metered dose nasal spray (20 sources) Corticosteroid Start: 11-02-2021 Fluticasone Pr opionate 50 mcg/actuation spray,suspension Active 2 NMA INHALATION DAILY as needed November 02, 2021 11:40am Complies with drug therapy Start: 10-23-2018 End: 11-02-2021 Fluticasone Propionate 50 MC G spray,suspension Discontinued 2 NMA INHALATION DAILY October 23, 2018 1:00am November 02, 2021 11:42am Start: 10-23-2018 End: 11-02-2021 take 1 spray(s) by inhalation once daily Fluticasone Propionate Active 2 SPRAY INHALATION DAILY November 02, 2021 10:40am mecobalamin 1 mg chewable tablet (6 sources) Start: 03-31-2025 take 1 tablet by mouth once daily Mecobalamin (Vitamin B12) 1,000 mcg tablet,chewable Active 1000 ug PO daily March 31, 2025 12:00am Complies with drug therapy 24 hr mirabegron 50 mg extended release oral tablet (20 sources) beta3-Adrenerg ic Agonist Start: 06-08-2025 take 2 tablets by mouth once daily Start: 06-08-2025 take 2 tablets by mo [facility] once daily Start: 06-06-2022 take 1 tablet by rosamaria once daily Mirabegron (Myrbetriq) 50 mg tablet extended release 24 hr Active 50 mg PO DAILY June 06, 2022 12:00am Complies with drug therapy Start: 10-27-2020 End: 01-30-2022 take 1 tablet by mouth once daily Mirabegron (Myrbetriq) 50 mg tablet extended release 24 hr Discontinued 100 mg PO DAILY October 27, 2020 1:00am January 30, 2022 11:22am polyethylene glycol 3350 35649 mg powder for oral solution (17 sources) Osmotic Laxative Start: 11-02-2021 Polyethylene Glycol 3350 (Miralax) 17 gram/dose powder Active 17 g PO DAILY as needed November 02, 2021 12:00am Complies with drug therapy warfarin sodium 1 mg oral tablet (20 sources) Vitamin K Antagonist Start: 10-27-2020 take 2 tablets by mouth once daily, then take 2.5 mg by mouth once daily Warfarin 1 mg tablet Active 0 PO DAILY October 27, 2020 2:19pm 2mg m-w-f, 2.5mg other days PO daily; Complies with drug therapy Start: 10-27-2020 take 2 mg by mouth [...] 2 MG TABS as directed WARFARIN SODIUM [id number] Stephanie Dacosta MD Start: 02-04-2017 End: 08-27-2018 [...] / HYDROcodone bitartrate 5 mg oral tablet (17 sources) Opioid Agonist Start: 08-04-2013 End: 08-08-2013 Hydrocodone-Acetam inophen (Vicodin 5-300 Mg Tablet) 1 EACH tablet Discontinued 1 - 2 {tbl} PO EVERY 4 HOURS NEEDED as needed for Mod-Severe (Pain Scale 6-10) August 04, 2013 1:00am August 08, 2013 8:11am cefdinir 300 mg oral capsule (19 sources) Cephalosporin Antibacterial Start: 04-11-2017 take 1 tablet by mouth once daily CEFDINIR 300 MG CAPS One tablet by mouth daily CEFDINIR [id number] Stephanie Dacosta MD Start: 02-05-2017 End: 08-27-2018 [...] 2020 1:02am ciprofloxacin 500 mg oral tablet (17 sources) Quinolone Antimicrobial Start: 08-11-2020 End: 08-21-2020 take 1 tablet by mouth twice daily Ciprofloxacin Hcl 500 mg tablet Discontinued 500 mg PO TWICE A DAY 20 10 0 August 11, 2020 1:00am August 20, 2020 1:00am August 21, 2020 1:03am clindamycin 20 mg/ml vaginal cream (14 sources) Lincosamide Antibacterial Start: 10-03-2022 End: 10-08-2022 Clindamycin Phosphate 2 % cream Discontinued 1 NMA VAGINAL AT BEDTIME 40 5 0 October 03, 2022 1:00am October 07, 2022 1:00am October 08, 2022 1:05am Start: 10-03-2022 End: 10-08-2022 Clindamycin Phosphate Discon tinued 1 APPFUL VAGINAL AT BEDTIME 40 5 October 03, 2022 12:00am October 08, 2022 12:05am 1 ml denosumab 60 mg/ml prefilled syringe (4 sources) RANK Ligand Inhibitor Start: 03-31-2025 End: 06-02-2025 Denosumab (Prolia) 60 mg/mL syringe Discontinued 60 mg SC every 6 months March 31, 2025 12:00am June 02, 2025 11:26am ferrous sulfate 325 mg oral tablet (20 [...] 2020 1:00am August 02, 2021 12:12pm FLUTICASONE-SALMETEROL (19 sources) Corticosteroid, beta2-Adrenergic Agonist Start: 04-11-2017 ADVAIR DISKUS 100-50 MCG/DOSE AEPB as directed FLUTICASONE-SALMETEROL [id number] Stephanie Dacosta MD Start: 08-04-2013 End: 07-12-2020 [...] 04, 2013 1:00am July 12, 2020 12:58pm 12 hr guaiFENesin 600 mg extended release oral tablet (17 sources) Start: 11-02-2021 End: 06-02-2025 take 1 tablet by mouth once daily, then take 1 tablet by mouth every twelve hours Guaifenesin (Mucinex) 600 mg tablet extended release 12hr Discontinued 600 mg PO daily November 02, 2021 12:00am June 02, 2025 11:26am loratadine 10 mg oral tablet (17 sources) Start: 10-27-2020 End: 11-02-2021 take 1 tablet by mouth once daily Loratadine (Claritin) 10 mg tablet Discontinued 10 mg PO DAILY October 27, 2020 1:00am November 02, 2021 11:40am magnesium gluconate 550 mg oral tablet (17 sources) Start: 11-02-2021 End: 06-02-2025 take 1 tablet by mouth once daily Magnesium 30 mg tablet Discontinued 30 mg PO DAILY November 02, 2021 12:00am June 02, 2025 11:27am meclizine hydrochloride 25 mg oral tablet (16 sources) Antiemetic Start: 05-02-2022 End: 03-31-2025 take 1 tablet by mouth three times daily as needed for dizziness Meclizine 25 mg tablet Discontinued 25 mg PO THREE TIMES A DAY as needed for dizziness 30 0 May 02, 2022 12:00am March 31, 2025 1:21pm Miscellaneous Medical Supply misc (10 sources) Start: 12-10-2018 End: 08-02-2021 Miscellaneous Medical [...] available. ondansetron 4 mg disintegrating oral tablet (10 sources) Serotonin-3 Receptor Antagonist Start: 09-21-19 End: [...] take 1 tablet by rosamaria once daily DITROPAN XL 5 MG [id number] One tablet by mouth daily OXYBUTYNIN CHLORIDE [id number] Stephanie Dacosta MD Start: 12-06-2016 End: 08-27-2018 take 1 tablet by mouth twice daily Oxybutynin Chloride 5 MG tablet Discontinued 5 mg PO TWICE A DAY December 06, 2016 12:00am August 27, 2018 12:07pm oxyCODONE hydrochloride 5 mg oral tablet (17 sources) Opioid Agonist Start: 10-24-2018 End: 10-27-2018 [...] knee phenazopyridine hydrochloride 100 mg oral tablet (17 sources) Start: 08-02-2021 End: 11-02-2021 take 1 [...] 1:00am October 03, 2022 2:59pm 5 days prochlorperazine 5 mg oral tablet (3 sources) Phenothiazine Start: 05-23-2025 End: 06-02-2025 take 1 tablet by mouth three times daily as needed for headache Prochlorperazine Maleate (Compazine) 5 mg tablet Discontinued 5 mg PO THREE TIMES A DAY as needed for headache 10 3 0 May 23, 2025 12:00am June 02, 2025 11:27am SUCRALFATE (19 sources) Aluminum Complex Start: 04-11-2017 take 1 tablet by mouth once daily CARAFATE 1 GM TABS One tablet by mouth daily SUCRALFATE [id number] Stephanie Dacosta MD Start: 02-05-2017 End: 03-11-2019 take 1 tablet by mouth 1 hour(s) before mealtime Sucralfate 1 GM tablet Discontinued 1 g PO ONE HOURS BEFORE MEALS & BED 120 0 February 05, 2017 12:00am March 11, 2019 10:39am sulfamethoxazole 800 mg / trimethoprim 160 mg oral tablet (17 sources) Dihydrofolate Reductase Inhibitor Antibacterial, Sulfonamide Antimicrobial [...] 2020 12:00am July 14, 2020 9:35am Vibegron (17 sources) Start: 01-30-2022 End: 03-31-2025 take 1 [...] Date Documented Da te Episodic/Chronic Abdominal pain (18 sources) Unspecified abdominal pain; Translations: [Abdominal pain] Onset: 7 10-24-2018 Episodic Asthma (17 sources) Asthma; Translations: [Unspecified asthma, uncomplicated] 10-24-2018 Chronic Chronic ulcer of skin (17 sources) Pressure ulcer of unspecified site, stage 2; Translations: [Pressure injury, stage 2] 11-12-2019 Chronic Coagulation and hemorrhagic disorders (20 sources) Lupus anticoagulant disorder; Translations: [Blood coagulation disorder] Onset: 5 10-24-2018 Chronic Conditions associated with dizziness or vertigo (20 sources) Lightheadedness; Translations: [Dizziness and giddiness] 05-10-2022 Episodic Deficiency and other anemia (17 sources) Microcytic anemia; Translations: [Iron deficiency anemia, unspecified] 10-24-2018 Episodic Deficiency and other anemia (1 source) Anemia, unspecified; Translations: [Anemia, unspecified] Onset: 5 Episodic Gastrointestinal hemorrhage (17 sources) Gastrointestinal hemorrhage; Translations: [Gastrointestinal hemorrhage, unspecified] 10-17-2015 Episodic Genitourinary symptoms and ill-defined conditions (20 sources) Incontinence; Translations: [Unspecified urinary incontinence] Onset: 4 12-10-2018 Chronic Comment on above: See Dr Guajardo Genitourinary symptoms and ill-defined conditions (20 sources) Nocturia; Translations: [Nocturia] Onset: 5 03-31-2025 Episodic Inflammatory diseases of female pelvic organs (2 sources) Acute vaginitis; Translations: [Vaginitis and vulvovaginitis, unspecified] 10-03-2022 Episodic Menopausal disorders (1 source) Unspecified menopausal and perimenopausal disorder; Translations: [Unspecified menopausal and perimenopausal disorder] Onset: 5 Chronic Nausea and vomiting (1 source) Nausea with vomiting, unspecified; Translations: [Nausea with vomiting, unspecified] Onset: 5 Episodic Nonspecific chest pain (17 sources) Atypical chest pain; Translations: [Other chest pain] 10-24-2018 Episodic Osteoarthritis (19 sources) Osteoarthritis; Translations: [Arthritis] Onset: 7 04-11-2017 Chronic Other non-traumatic joint disorders (17 sources) Pain in right knee; Translations: [Right knee pain] 11-11-2019 Episodic Other nutritional; endocrine; and metabolic disorders (17 sources) Morbid obesity; Translations: [Morbid (severe) obesity due to excess calories] 10-24-2018 Chronic Phlebitis; thrombophlebitis and thromboembolism (19 sources) Deep venous thrombosis; Translations: [Acute embolism and thrombosis of unspecified deep veins of unspecified lower extremity] Onset: 7 04-11-2017 Episodic Prolapse of female genital organs (20 sources) Cystocele and rectocele co-occurrent with incomplete uterovaginal prolapse; Translations: [Incomplete uterovaginal prolapse] Onset: 5 Chronic Comment on above: stable Rehabilitation care; fitting of prostheses; and adjustment of devices (20 sources) Patient encounter status; Translations: [Encounter for fitting and adjustment of other specified devices] Onset: 5 Chronic Comment on above: #3 ring with support and knob Syncope (17 sources) Near syncope; Translations: [Syncope and collapse] [...] obstruction or gangrene] Onset: 04-11-2017 04-11-2017 Episodic Spondylosis; intervertebral disc disorders; other back problems (2 sources) Backache; Translations: [Dorsalgia, unspecified] Onset: 04-11-2017 04-11-2017 Episodic Unclassified (2 sources) Encounter for screening for other disorder; Translations: [Other abnormal and inconclusive findings on diagnostic imaging of breast] Onset: 03-13-2017 Episodic Results Test Name Value Interpretation Reference Range Facility MR/[place] 06-02-2025 MR/[place] [facility] [address] [place] [address], [address] [place] [address] OFFICE VISIT Date of Service: 06/02/25 MR#: [id number] Acct: [id number] Name: SINDY SWEENEY Rep #: [id number] : 1945 Provider: Dr. Kiah Zimmerman i, MD Age/Sex: 79/F [place] [facility] [place]: [place] Intake Vital Signs 03/31/25 13:29 05/23/25 18:21 06/02/25 09:49 06/02/25 11:11 Height 5 ft 5 in 5 ft 5 in 5 ft 5 in 5 ft 5 in Weight: 190 lb BMI 31.6 BP 134/82 H Pulse 62 Temp 98 F Intake Visit Reasons: ptns Chief Complaint: PTNS treatment Bronze Chaser Required: No Is patient in pain?: No Allergies latex Adverse Reaction (Verified 06/02/25 09:41) Rash Medications ???Medication ???Instructions ???Recorded ???Confirmed ???Type acetaminophen 500 mg tablet 1,000 mg PO BID PRN Pain 03/09/15 06/02/25 History albuterol sulfate 90 mcg/actuation 1 puff inhalation Q4H PRN PRN So b 12/31/16 06/02/25 History aerosol inhaler /Or Wheezing buspirone 10 mg tablet 10 mg PO TID 08/27/18 06/02/25 His tory esomeprazole magnesium 20 mg 40 mg PO DAILY 10/23/18 06/02/25 H istory capsule,delayed release clotrimazole-betamethasone 1 1 applic topical BID 2 weeks #45 1 09/11/19 06/02/25 Rx %-0.05 % topical cream grams warfarin 1 mg tablet See Rx Instructions PO DAILY 10/2706/02/25 History fluticasone propionate 50 2 spray inhalation DAILY PRN 11/0206/02/25 History mcg/actuation nasal spray,suspension polyethylene glycol 3350 17 17 g PO DAILY PRN 11/02/21 5 History gram/dose oral powder (Miralax) mirabegron 50 mg tablet,extended 50 mg PO DAILY 06/06/22 06/02/25 H istory release 24 hr (Myrbetriq) ascorbate calcium (vitamin C) 500 500 mg PO DAILY 10/03/22 06/02/25 History mg tablet calcium amino acid chelate mg PO 03/31/25 06/02/25 History cholecalciferol (vitamin D3) 625 625 mcg PO QWEEK 03/31/25 06/02/25 History mcg (25,000 unit) capsule fesoterodine 8 mg tablet,extended 8 mg PO QDAY 03/31/25 06/02/25 Hi story release 24 hr mecobalamin (vitamin [...] incontinence is improving. She is going through 5-6 pads a day, but they are dry. She is continuing to work on level [...] bleeding, easy bruising or enlarged lymph nodes Exam Const General: cooperative, healthy appearing, comfortable and no acute distress HENMT Head: normocephalic and atraumatic Ears: hearing grossly normal bilaterally and external ears normal Nose: external nose (more content not included)... Normal [facility] Channeler Outsole Office Visit Reporton 06-02-2025 Channeler Outsole Office Visit Report [facility]'[address], [address] [place] [address] OFFICE VISIT Date of Service: 06/02/25 MR#: [id number] Acct: [id number] Name: SINDY SWEENEY Rep #: [id number] : 1945 Provider: PATI villavicencio Age/Sex: 79/F [place] [facility] [place]: Signed Intake Vital Signs 02/24/25 10:22 05/23/25 18:21 06/02/25 09:41 06/02/25 09:49 Height 5 ft 5 in 5 ft 5 in 5 ft 5 in 5 ft 5 in Weight: 190 lb BMI 31.6 BP 133/74 H Intake Visit Reasons: Pessary Check Bronze Chaser Required: No Is patient in pain?: No Allergies latex Adverse Reaction (Verified 06/02/25 09:41) Rash Medications ???Medication ???Instructions ???Recorded ???Confirmed ???Type acetaminophen 500 mg tablet 1,000 mg PO BID PRN Pain 03/09/15 06/02/25 History albuterol sulfate 90 mcg/actuation 1 puff inhalation Q4H PRN PRN So b 12/31/16 06/02/25 History aerosol inhaler /Or Wheezing buspirone 10 mg tablet 10 mg PO TID 08/27/18 06/02/25 His tory esomeprazole magnesium 20 mg 40 mg PO DAILY 10/23/18 06/02/25 H istory capsule,delayed release clotrimazole-betamethasone 1 1 applic topical BID 2 weeks #45 1 09/11/19 06/02/25 Rx %-0.05 % topical cream grams warfarin 1 mg tablet See Rx Instructions PO DAILY 10/2706/02/25 History fluticasone propionate 50 2 spray inhalation DAILY PRN 11/0206/02/25 History mcg/actuation nasal spray,suspension guaifenesin 600 mg tablet, 600 mg PO QDAY 11/02/21 06/02/25 H istory extended release 12 hr (Mucinex) magnesium 30 mg tablet 30 mg PO DAILY 11/02/21 06/02/25 H istory polyethylene glycol 3350 17 17 g PO DAILY PRN 11/02/21 5 History gram/dose oral powder (Miralax) mirabegron 50 mg tablet,extended 50 mg PO DAILY 06/06/22 06/02/25 H istory release 24 hr (Myrbetriq) ascorbate calcium (vitamin C) 500 500 mg PO DAILY 10/03/22 06/02/25 History mg tablet calcium amino acid chelate mg PO 03/31/25 06/02/25 History cholecalciferol (vitamin D3) 625 625 mcg PO QWEEK 03/31/25 06/02/25 History mcg (25,000 unit) capsule denosumab 60 mg/mL subcutaneous 60 mg subcut [id number] 03/31/25 History syringe (Prolia) fesoterodine 8 mg tablet,extended 8 mg PO QDAY 03/31/25 06/02/25 Hi story release 24 hr mecobalamin (vitamin B12) 1,000 1,000 mcg PO QDAY 03/31/25 5 History mcg chewable tablet prochlorperazine maleate 5 mg 5 mg PO TID PRN headache 3 days 06/02/25 Rx tablet (Compazine) #10 tabs Is last menstrual period known: No Post menopausal: Yes Patient : No : No PFSH Medical History Urge incontinence Nocturia [...] who presents for pessary check. Denies concerns with pessary. History 2 Elective abortions Hx Para 2 [...] vis,est,level 3 Diagnoses Pessary maintenance Z46.89 Cystocele a (more content not included)... Normal [facility] 12 Lead EKGon 05-23-2025 12 Lead EKG [facility] Cardiovascular Services [address] [place] [address] 12 Lead EKG 05/23/25 1918 MR#: [id number] Acct: [id number] Name: SINDY SWEENEY Rep #: [id number] : 1945 79 From: Ras Prabhakar MD Attending Dr: Status: DEP ER Ordering Dr: Carloz Lerma DO Date: 05/23/25 Location: ED Sex: F C Admitted: Test Reason : DYSRHYTHMIA Blood Pressure : */* mmHG Vent. Rate : 86 BPM Atrial Rate : 86 BPM P-R Int : 150 ms QRS Dur : 144 ms QT Int : 374 ms P-R-T Axes : 36 14 24 degrees QTcB Int : 447 ms Normal sinus rhythm Right bundle branch block Abnormal ECG Confirmed by DAWSON HUNT, RAS ([id number]), restaurant expeditor SIN GLENROY ([id number]) on 05/25/2025 8:34:42 AM Referred By: Confirmed By: RAS PRABHAKAR MD 05/25/25 0834 Date Ras Prabhakar MD CC: Dr. Litzy Vazquez MD; Dr. Carloz Lerma DO Signed Normal [facility] Abdomen/Pelvis W IV Cont ONL Yon 05-23-2025 Abdomen/Pelvis W IV Cont ONLY [facility] Imaging Services [address] [place] [address] Abdomen/Pelvis W IV Cont ONLY MR#: [id number] Acct: [id number] Name: SINDY SWEENEY Rep #: [id number] : 1945 F 79 From: Tucker Morris MD PCP: Dr. Litzy Vazquez MD Status: REG ER Study: Abdomen/Pelvis W IV Cont ONLY Date of Exam: Exam# [id number] Ordering Dr: Carloz Lerma DO PROCEDURE: ABDOMEN/PELVIS W IV CONT ONLY 05/23/2025 REASON FOR EXAM: DIFFUSE ABDOMINAL PAIN, VOMITING AND DIARRHEA TECHNIQUE: Procedure Code: CTABDPELIV Modality: CT Procedure: ABDOMEN/PELVIS W IV CONT ONLY Coronal and Sagittal reconstruction series were provided. CONTRAST: Isovue 370 VOLUME: 100 mL One or more dose reduction techniques were used (e.g., Automated exposure control, adjustment of the mA and/or kV according to patient size, use of iterative reconstruction technique. RADIATION DOSE SUMMARY: CTDlvol: 39.20 mGy DLP: 1748.89 mGycm COMPARISON: None FINDINGS: Lung bases: Chronic interstitial changes with compressive atelectasis in the left lung base due to a prominent hiatal hernia Liver: Normal size. No mass. Gallbladder: Surgically absent. Spleen: Normal size. Pancreas: Normal size without evidence of mass surrounding inflammation or ductal dilation. Adrenals: Unremarkable Kidneys: No obstructive uropathy or suspicious solid renal lesion. Bladder: Unremarkable Reproductive Organs: The uterus present, the endometrium can not be accurately evaluated with CT. No suspicious cystic mass or free fluid, there is a pessary noted Bowel: No obstruction or acute inflammation. Diffuse colonic diverticulosis without CT evidence of acute diverticulitis. Appendix: Appendix seen on coronal recon images 40 through 45 Lymph nodes: No suspicious mesenteric or retroperitoneal adenopathy Vasculature: Peripheral calcifications in the abdominal aorta without aneurysm. Peritoneum / Retroperitoneum: No free fluid or air Bones: Degenerative bony changes, replaced hip joints free of complication. CT/Abdomen/Pelvis W IV Cont ONLY IMPRESSION: No suspicious solid organ abnormality, intrahepatic biliary dilatation likely sequela from previous cholecystectomy Uterus is present, the endometrium can not be accurately evaluated with CT. No free intraperitoneal fluid, air, or suspicious adenopathy Prominent retrocardiac hiatal hernia Degenerative bony changes Reading Location: [id number] CC: Dr. Litzy Vazquez MD; Dr. Carloz Lerma DO Therapeutic Specialist: Signed Normal [facility] Absolute lymphocyte countOrd ered By: Carloz Lerma on 05-23-2025 Lymphocytes Auto (Unsp spec) [#/Vol] 0.37 10*3/uL Low 0.83-4.51 [facility] Absolute neutrophil countOrd ered By: Carloz Lerma on 05-23-2025 Neutrophils (Bld) [#/Vol] 6.4 10*3/uL 2.0-7.7 [facility] Anion gap in Serum or Plasma Ordered By: Carloz Lerma on 05-23-2025 Anion gap [Moles/Vol] 13 mmol/L 5-15 [facility] Automated lymphocyte count a s percentage of total leukocytesOrdered By: Carloz Lerma on 05-23-2025 Lymphocytes/100 WBC Auto (Unsp spec) 4.7 % Low 19-41 [facility] BUN/creatinine ratioOrdered By: Carloz Lerma on 05-23-2025 Urea nitrogen/Creatinine [Mass ratio] 13.8 mg/mg 10-20 [facility] Basophil percentageOrdered B y: Carloz Lerma on 05-23-2025 Basophils/100 WBC (Bld) 0.1 % 0-1 [facility] Bilirubin Test strip Ql (U)O rdered By: Carloz Lerma on 05-23-2025 Bilirubin Ql (U) Negative Negative [facility] Bilirubin, totalOrdered By: Carloz Lerma on 05-23-2025 Bilirubin [Mass/Vol] 0.62 mg/dL 0.00-1.[address] [facility] Brain/Head without Contrasto n 05-23-2025 Brain/Head without Contrast [facility] Imaging Services [address] [facility] [address] [place], [place] [address] Brain/Head without Contrast MR#: [id number] Acct: [id number] Name: SINDY SWEENEY Rep #: [id number] : 1945 F 79 From: Tucker Morris MD PCP: Dr. Litzy Vazquez MD Status: REG ER Study: Brain/Head without Contrast Date of Exam: 12/12 Exam# [id number] Ordering Dr: Carloz Lerma DO PROCEDURE: BRAIN/HEAD WITHOUT CONTRAST 05/23/2025 REASON FOR EXAM: HEADACHE TECHNIQUE: Procedure Code: CTBR Modality: CT Procedure: BRAIN/HEAD WITHOUT CONTRAST Coronal and Sagittal reconstruction series were provided. One or more dose reduction techniques were used (e.g., Automated exposure control, adjustment of the mA and/or kV according to patient size, use of iterative reconstruction technique. RADIATION DOSE SUMMARY: CTDlvol: 44.99 mGy DLP: 796.11 mGycm COMPARISON: None FINDINGS: Age consistent periventricular and deep white matter changes with remote basal ganglia infarcts. No acute hemorrhage midline shift or mass effect. Hyperostosis frontalis is noted which may be due to medication. No skull fracture or scalp hematoma, mucosal thickening in the ethmoid sinuses.. Evidence of previous cataract surgery CT/Brain/Head without Contrast IMPRESSION: Age consistent changes, no acute findings Ethmoid sinusitis Reading Location: [id number] CC: Dr. Litzy Vazquez MD; Dr. Carloz Lerma DO Therapeutic Specialist: Signed Normal [facility] CBC W/Diff, Automatedon 10-0 Absolute Lymph 0.37 X10 3/uL Low 0.83-4.51 [facility] Comment on above: Performed By: #### L 501.2450, L100.0100, L500.4050, L501.4021 #### [facility] Laboratory [address] [place], [address] Absolute Neut 6.4 X10 3/uL Normal 2.0-7.7 [facility] Comment on above: Performed By: #### L 501.2450, L100.0100, L500.4050, L501.4021 #### [facility] [address] [place], [address] Basophils/100 WBC (Bld) 0.1 % Normal 0-1 [facility] Comment on above: Performed By: #### L 501.2450, L100.0100, L500.4050, L501.4021 #### [facility] [address] [place], [address] Eosinophils/100 WBC (Bld) 0.3 % Normal 0-5 [facility] Comment on above: Performed By: #### L 501.2450, L100.0100, L500.4050, L501.4021 #### [facility] [address] [place], [address] Erythrocyte distribution width (RBC) [Ratio] 18.6 % High 11.6-14.6 [facility] Comment on above: Performed By: #### L 501.2450, L100.0100, L500.4050, L501.4021 #### [facility] [address] [place], [address] Hematocrit (Bld) [Volume fraction] 35.9 % Low 37-47 [facility] Comment on above: Performed By: #### L 501.2450, L100.0100, L500.4050, L501.4021 #### [facility] [address] [place], [address] Hemoglobin (Bld) [Mass/Vol] 11.5 g/dL Low 12.0-15.0 [facility] Comment on above: Performed By: #### L 501.2450, L100.0100, L500.4050, L501.4021 #### [facility] [address] [place], [address] IG% 0.300 Normal 0.0-0.9 [facility] Comment on above: Result Comment: IG% - Immature Granulocytes (promyelocytes, myelocytes and metamyelocytes) > 1% indicates that a LEFT SHIFT is Present. Performed By: #### L 501.2450, L100.0100, L500.4050, L501.4021 #### [facility] [address] [place], [address] Lymphocytes/100 WBC (Bld) 4.7 % Low 19-41 [facility] Comment on above: Performed By: #### L 501.2450, L100.0100, L500.4050, L501.4021 #### [facility] [address] [place], [address] MCH (RBC) [Entitic mass] 29.8 pg Normal 27.0-32.0 [facility] Comment on above: Performed By: #### L 501.2450, L100.0100, L500.4050, L501.4021 #### [facility] [address] [place], [address] MCHC (RBC) [Mass/Vol] 32.0 g/dL Normal 32-36 [facility] Comment on above: Performed By: #### L 501.2450, L100.0100, L500.4050, L501.4021 #### [facility] [address] [place], [address] MCV (RBC) [Entitic vol] 93.0 fL Normal 81-99 [facility] Comment on above: Performed By: #### L 501.2450, L100.0100, L500.4050, L501.4021 #### [facility] [address] [place], [address] Monocytes/100 WBC (Bld) 14.2 % High 0-10 [facility] Comment on above: Performed By: #### L 501.2450, L100.0100, L500.4050, L501.4021 #### [facility] [address] [place], [address] Neutrophils/100 WBC (Bld) 80.4 % High 47-70 [facility] Comment on above: Performed By: #### L 501.2450, L100.0100, L500.4050, L501.4021 #### [facility] [address] [place], [address] Nucleated RBC (Bld) [#/Vol] 0 10*3/uL Normal 0-5 [facility] Comment on above: Performed By: #### L 501.2450, L100.0100, L500.4050, L501.4021 #### [facility] [address] [place], [address] Platelet mean volume (Bld) [Entitic vol] 9.9 fL Normal 6.2-12.0 [facility] Comment on above: Performed By: #### L 501.2450, L100.0100, L500.4050, L501.4021 #### [facility] [address] [place], [address] Platelets (Bld) [#/Vol] 160 10*3/uL Normal 150-450 [facility] Comment on above: Performed By: #### L 501.2450, L100.0100, L500.4050, L501.4021 #### [facility] [address] [place], [address] RBC (Bld) [#/Vol] 3.86 10*6/uL Low 4.2-5.[address] [facility] Comment on above: Performed By: #### L 501.2450, L100.0100, L500.4050, L501.4021 #### [facility] [address] [place], [address] RDW SD 63.1 fl High 35.1-43.9 [facility] Comment on above: Performed By: #### L 501.2450, L100.0100, L500.4050, L501.4021 #### [facility] [address] [place], [address] WBC (Bld) [#/Vol] 8.0 10*3/uL Normal 4.4-11.0 [facility] Comment on above: Performed By: #### L 501.2450, L100.0100, L500.4050, L501.4021 #### [facility] [address] [place], [address] Carbon dioxide, total [Moles /volume] in Central venous bloodOrdered By: Carloz Lerma on 05-23-2025 CO2 [Moles/Vol] 22.7 mmol/L 21.0-32.0 [facility] Chest 1 View (Portable)on Chest 1 View (Portable) [facility] Imaging Services [address] [place] [address] Chest 1 View (Portable) MR#: [id number] Acct: [id number] Name: SINDY SWEENEY Rep #: [id number] : 1945 F 79 From: Kvng Jordan MD PCP: Dr. Litzy Vazquez MD Status: REG ER Study: Chest 1 View (Portable) Date of Exam: 05/23/25 Exam# [id number] Ordering Dr: Carloz Lerma DO PROCEDURE: CHEST 1 VIEW (PORTABLE) 05/23/2025 REASON FOR EXAM: PALPITATIONS/CHEST PAIN TECHNIQUE: Frontal view of the chest. COMPARISON: None available. FINDINGS: Hardware: The support lines and tubes are in stable and satisfactory position. Heart: The heart size is normal. Lungs: The lungs are clear. No pneumothorax or pleural effusion. Bones: The bones are unremarkable. RAD/Chest 1 View (Portable) IMPRESSION: No Acute Findings. Reading Location: [facility] CC: Dr. Litzy Vazquez MD; Dr. Carloz Lerma DO Therapeutic Specialist: Signed Normal [facility] Chloride assayOrdered By: Kayla Lerma on 05-23-2025 Chloride [Moles/Vol] 100 mmol/L 98-[address] [facility] Comprehensive Metabolic Prof ilon 05-23-2025 Albumin [Mass/Vol] 3.6 g/dL Normal 3.4-4.8 [facility] Comment on above: Performed By: #### L 501.2450, L100.0100, L500.4050, L501.4021 #### [facility] [address] [facility] [place], [address] Albumin/Globulin [Mass ratio] 1.4 {ratio} Normal 0.9-2.4 [facility] Comment on above: Performed By: #### L 501.2450, L100.0100, L500.4050, L501.4021 #### [facility] [address] [place], [address] ALK PHOS 55 U/L Normal 35-104 [facility] Comment on above: Performed By: #### L 501.2450, L100.0100, L500.4050, L501.4021 #### [facility] [address] [place], [address] ALT [Catalytic activity/Vol] 10 U/L Normal <=34 [facility] Comment on above: Performed By: #### L 501.2450, L100.0100, L500.4050, L501.4021 #### [facility] [address] [place], [address] AST [Catalytic activity/Vol] 20 U/L Normal <=31 [facility] Comment on above: Performed By: #### L 501.2450, L100.0100, L500.4050, L501.4021 #### [facility] [address] [place], [address] Bilirubin [Mass/Vol] 0.62 mg/dL Normal 0.00-1.[address] [facility] Comment on above: Performed By: #### L 501.2450, L100.0100, L500.4050, L501.4021 #### [facility] [address] [place], [address] BUN/CRE 13.8 RATIO Normal 10-20 [facility] Comment on above: Performed By: #### L 501.2450, L100.0100, L500.4050, L501.4021 #### [facility] [address] [place], [address] Calcium [Mass/Vol] 8.7 mg/dL Normal 7.6-11.0 [facility] Comment on above: Performed By: #### L 501.2450, L100.0100, L500.4050, L501.4021 #### [facility] [address] [place], [address] Chloride [Moles/Vol] 100 mmol/L Normal 98-[address] [facility] Comment on above: Performed By: #### L 501.2450, L100.0100, L500.4050, L501.4021 #### [facility] [address] [place], [address] CO2 [Moles/Vol] 22.7 mmol/L Normal 21.0-32.0 [facility] Comment on above: Performed By: #### L 501.2450, L100.0100, L500.4050, L501.4021 #### [facility] [address] [place], [address] Creatinine [Mass/Vol] 0.82 mg/dL Normal 0.70-1.20 [facility] Comment on above: Performed By: #### L 501.2450, L100.0100, L500.4050, L501.4021 #### [facility] [address] [place], [address] ECRCL 60.41 ml/min Normal 50-250 [facility] Comment on above: Performed By: #### L 501.2450, L100.0100, L500.4050, L501.4021 #### [facility] [address] [place], [address] GAP 13 Normal 5-15 [facility] Comment on above: Performed By: #### L 501.2450, L100.0100, L500.4050, L501.4021 #### [facility] [address] [place], [address] GFR/1.73 sq M.predicted among non-blacks MDRD (S/P/Bld) [Vol rate/Area] 72 mL/min/{1.73_m2} Normal >60 [facility] Comment on above: Result Comment: mL/m in/1.73m2 CKD-EPI Creatinine Equation (2020) Performed By: #### L 501.2450, L100.0100, L500.4050, L501.4021 #### [facility] [address] [place], [address] Globulin (S) [Mass/Vol] 2.6 g/dL Normal 2.2-4.2 [facility] Comment on above: Performed By: #### L 501.2450, L100.0100, L500.4050, L501.4021 #### [facility] [address] [place], [address] Glucose [Mass/Vol] 102 mg/dL High 70-99 [facility] Comment on above: Performed By: #### L 501.2450, L100.0100, L500.4050, L501.4021 #### [facility] [address] [place], [address] Potassium [Moles/Vol] 3.9 mmol/L Normal 3.3-5.1 [facility] Comment on above: Performed By: #### L 501.2450, L100.0100, L500.4050, L501.4021 #### [facility] [address] [place], [address] Sodium [Moles/Vol] 135 mmol/L Normal 133-145 [facility] Comment on above: Performed By: #### L 501.2450, L100.0100, L500.4050, L501.4021 #### [facility] [address] [place], [address] T PROT 6.2 g/dL Normal 5.9-8.4 [facility] Comment on above: Performed By: #### L 501.2450, L100.0100, L500.4050, L501.4021 #### [facility] [address] [place], [address] Urea nitrogen [Mass/Vol] 11 mg/dL Normal 4-19 [facility] Comment on above: Performed By: #### L 501.2450, L100.0100, L500.4050, L501.4021 #### [facility] [address] [place], [address] Electrocardiogram reportOrde red By: Ras Prabhakar on 05-23-2025 EKG study [facility] Cardiovascular Services [address] [place] [address] 12 Lead EKG 05/23/251917 MR#: [id number] Acct: [id number] Name: SINDY SWEENEY Rep #:[id number] : 1945 79 From: Ras Prabhakar MD Attending Dr: Status: DEP E R Ordering Dr: Carloz Lerma DO Date: Location: ED Sex: F C Admitted: Test Reason : DYSRHYTHMIA Blood Pressure : */* mmHG Vent. Rate : 86 BPM Atrial Rate : 86 BPM P-R Int : 150 ms QRS Dur : 144 ms QT Int : 374 ms P-R-T Axes : 36 14 24 degrees QTcB Int : 447 ms Normal sinus rhythm Right bundle branch block Abnormal ECG Confirmed by DAWSON HUNT, RAS ([id number]), restaurant expeditor GLENROY VOGT ([id number]) on 05/25/2025 8:34:42 AM Referred By: Confirmed By: RAS PRABHAKAR MD 05/25/25 0834 Date _ Ras Prabhakar MD CC: Dr. Litzy Vazquez MD; Dr. Carloz Lerma DO ~ Signed [facility] Other Phone: Emergency Department Summary on 05-23-2025 Emergency Department Summary [facility] Medical Records Department [address] [place] [address] Emergency Department Summary 05/23/25 MR#: [id number] Acct: [id number] Name: SINDY SWEENEY Rep #: [id number] : 1945 79 From: Carloz Lerma DO PCP: Dr. Litzy Vazquez MD Status:REG ER Location: ED HPI History of Present Illness Chief Complaint: Nausea/Vomiting/Diarrhea [facility] Medical History Urge incontinence Nocturia Knee injury [...] Unknown Rx %-0.05 % topical cream grams warfarin [...] 11/02/21 Unknown History gram/dose oral powder (Miralax) mirabegron 50 mg tablet,extended 50 mg PO DAILY 06/06/22 Unknown Hi story release 24 hr (Myrbetriq) ascorbate calcium (vitamin C) 500 500 mg PO DAILY 10/03/22 Unknown History mg tablet calcium amino acid chelate mg PO 03/31/25 Unknown History cholecalciferol (vitamin D3) 625 625 mcg PO QWEEK 03/31/25 Unknown History mcg (25,000 unit) capsule denosumab 60 mg/mL subcutaneous 60 mg subcut [id number] 03/31/25 Unk nown History syringe (Prolia) fesoterodine 8 mg tablet,extended 8 mg PO QDAY 03/31/25 Unknown His tory release 24 hr mecobalamin (vitamin B12) 1,000 1,000 mcg PO QDAY 03/31/25 Unknown History mcg chewable tablet Allergy/AdvReac Type Severity Reaction Status Date / Time latex AdvReac Rash Verified 02/24/25 10:15 Family History Father Lung cancer Surgical History Hx of cholecystectomy History of hip replacement Social History Smoking Status: Never smoker alcohol intake: never substance use type: does not use caffeine: Yes what type of physical activity do you participate in: none seatbelt use: always do you feel safe at home: Yes additional social history: - Max EXAM Physical Exam Const Vital Signs: 05/23/25 18:21 05/23/25 18:25 05/23/25 20:29 Temperature 98.9 F Temperature Source Oral Pulse Rate 87 94 Respiratory Rate 16 20 H Blood Pressure 148/64 H 149/58 H Blood Pressure Mean 92 88 Pulse Ox 97 97 Oxygen Delivery Method Room Air Room Air 05/23/25 22:00 Temperature Temperature Source Pulse Rate 84 Respiratory Rate 19 H Blood Pressure 149/65 H Blood Pressure Mean 93 Pulse Ox 96 Oxygen Delivery Method Room Air MDM MDM MDM Narrative Medical decision making narrative: HISTORY OF PRESENT ILLNESS: Chief complaint: Nausea vomiting diarrhea 79-year-old female history of obesity, UTI, DVT (on warfarin) and asthma presents with 2 days of nausea vomiting diarrhea. She notes symptoms have progressed to "sinus issues". She also notes headache, elevated blood pressure as well as "flutters in my chest". She states she started with vomiting and diarrhea. The vomiting is since resolved but she still has 3-4 episodes of watery stools per day. Denies any blood in her stool. Notes diffuse muscle aches also notes diffuse abdominal pain. She notes since her vomiting has stopped she developed a severe headache. She denies any falls or trauma. She also notes today she developed left-sided chest pain and palpitations. She notes compliance with warfarin. She denies any urinary complaints. She denies reports history of a cholecystectomy but otherwise denies history of other abdominal surgeries. She denies any sick contacts. Denies any recent travel or antibiotics. She denies any PE risk factors. Denies any aortic dissection risk factors REVIEW OF SYSTEMS: Pertinent positives: Nausea, vom (more content not included)... Normal [facility] Eosinophil percentageOrdered By: Carloz Lerma on 05-23-2025 Eosinophils/100 WBC (Bld) 0.3 % 0-5 [facility] Erythrocyte distribution wid th ratioOrdered By: Carloz Lerma on 05-23-2025 Erythrocyte distribution width (RBC) [Ratio] 18.6 % High 11.6-14.6 [facility] Erythrocyte distribution wid th standard deviationOrdered By: Carloz Lerma on 05-23-2025 Erythrocyte distribution width (RBC) [Ratio] 63.1 fl High 35.1-43.9 [facility] Glomerular filtration rate ( GFR) estimation/1.73 sq m using serum, plasma, or whole bOrdered By: Carloz Lerma on 05-23-2025 GFR/1.73 sq M.predicted among non-blacks MDRD (S/P/Bld) [Vol rate/Area] 72 mL/min/{1.73_m2} >60 [facility] Comment on above: mL/min/1.73m2 CKD-EP I Creatinine Equation (2020) Hematocrit Auto (Bld) [Volum e fraction]Ordered By: Carloz Lerma on 05-23-2025 Hematocrit (Bld) [Volume fraction] 35.9 % Low 37-47 [facility] Hemoglobin measurementOrdere d By: Carloz Lerma on 05-23-2025 Hemoglobin (Bld) [Mass/Vol] 11.5 g/dL Low 12.0-15.0 [facility] Immature granulocytes/100 WB C Auto (Bld)Ordered By: Craloz Lerma on 05-23-2025 Immature granulocytes/100 WBC (Bld) 0.300 % 0.0-0.9 [facility] Comment on above: IG% - Immature Granu locytes (promyelocytes, myelocytes and metamyelocytes) > 1% indicates that a LEFT SHIFT is Present. Influenza virus A and B and SARS-CoV-2 (COVID-19) and Respiratory syncytial virus RNAOrdered By: Carloz Lerma on 05-23-2025 SARS-CoV-2 (COVID-19) RNA CHRISTOPH+probe Ql (Unsp spec) [facility] International normalized rat io (INR) calculationOrdered By: Carloz Lerma on 05-23-2025 INR Coag (Bld) [Relative time] 2.1 {INR} [facility] Ketones Test strip Ql (U)Ord ered By: Carloz Lerma on 05-23-2025 Ketones Ql (U) Negative Negative [facility] L501.4021on 05-23-2025 Trop T High Sen 14 ng/L Normal <=14 [facility] Comment on above: Performed By: #### L 501.2450, L100.0100, L500.4050, L501.4021 #### [facility] [address] [place], [place], [id number] Laboratory - Chemistry and C hemistry - challengeOrdered By: Carloz Lerma on 05-23-2025 AST [Catalytic activity/Vol] 20 U/L <32 [facility] Lipaseon 05-23-2025 Lipase [Catalytic activity/Vol] 13 U/L Normal 13-75 [facility] Comment on above: Result Comment: Lindsey montoya note: LIPASE revised reference range effective 22. New Lipase methodology. Expected to produce lower values than the previous assay method. NEW Reference Range: 13 - 75 U/L Performed By: #### L 501.2450, L100.0100, L500.4050, L501.4021 #### [facility] [address] [place], [address] Lipase measurementOrdered By : Carloz Lerma on 05-23-2025 Lipase [Catalytic activity/Vol] 13 U/L 13-75 [facility] Comment on above: Please note:LIPASE r evised reference range effective 22. New Lipase methodology. Expected to produce lower values than the previous assay method. NEW Reference Range: 13 - 75 U/L M100.678on 05-23-2025 M100.678 SARS-CoV-2 (COVID 19 ) Negative INFLUENZA A Negative INFLUENZA B Negative RSV PCR Negative Normal [facility] Comment on above: Performed By: #### L 501.2450, L100.0100, L500.4050, L501.4021 #### [facility] [address] [place], [address] MCV (mean corpuscular volume ) determinationOrdered By: Carloz Lerma on 05-23-2025 MCV (RBC) [Entitic vol] 93.0 fL 81-99 [facility] Mean corpuscular hemoglobin (MCH) determinationOrdered By: Carloz Lerma on 05-23-2025 MCH (RBC) [Entitic mass] 29.8 pg 27.0-32.0 [facility] Mean corpuscular hemoglobin concentration (MCHC) determinationOrdered By: Carloz Lerma on 05-23-2025 MCHC (RBC) [Mass/Vol] 32.0 g/dL 32-36 [facility] Mean platelet volume determi nationOrdered By: Carloz Lerma on 05-23-2025 Platelet mean volume (Bld) [Entitic vol] 9.9 fL 6.2-12.0 [facility] Microscopic analysis of urin e for red blood cells (RBC)Ordered By: Carloz Lerma on 05-23-2025 Microscopic analysis of urine for red blood cells (RBC) 10-25 SEEN /hpf 0-5 [facility] Monocyte percentageOrdered B y: Carloz Lerma on 05-23-2025 Monocytes/100 WBC (Bld) 14.2 % High 0-10 [facility] Mucus LM Ql (Urine sed)Order ed By: Carloz Lerma on 05-23-2025 Mucus Ql (Urine sed) 0 SEEN /hpf [facility] Neutrophil percentageOrdered By: Carloz Lerma on 05-23-2025 Neutrophils/100 WBC (Bld) 80.4 % High 47-70 [facility] Nitrite Test strip Ql (U)Ord ered By: Carloz Lerma on 05-23-2025 Nitrite Ql (U) Negative Negative [facility] Nucleated red blood cell per centageOrdered By: Carloz Lerma on 05-23-2025 Nucleated RBC/100 WBC (Bld) [Ratio] 0 % 0-5 [facility] Platelet countOrdered By: Kayla Lerma on 05-23-2025 Platelets (Bld) [#/Vol] 160 10*3/uL 150-450 [facility] Potassium measurement (mass/ volume)Ordered By: Carloz Lerma on 05-23-2025 Potassium (Unsp spec) [Mass/Vol] 3.9 mmol/L 3.3-5.1 [facility] Protein Test strip Ql (U)Ord ered By: Carloz Lerma on 05-23-2025 Protein Ql (U) 30 mg/dl High Negative [facility] Prothrombin Time w/INRon INR Coag (PPP) [Relative time] 2.1 {INR} Normal [facility] Comment on above: Performed By: #### L 499.0043 #### [facility] [address] [place], [address] PT Coag (PPP) [Time] 24.0 s High 11.7-14.[address] [facility] Comment on above: Performed By: #### L 499.0043 #### [facility] [address] [place], [address] Prothrombin timeOrdered By: Carloz Lerma on 05-23-2025 PT Coag (PPP) [Time] 24.0 s High 11.7-14.[address] [facility] RBC Auto (Bld) [#/Vol]Ordere d By: Carloz Lerma on 05-23-2025 RBC (Bld) [#/Vol] 3.86 10*6/uL Low 4.2-5.[address] [facility] Serum creatinine measurement (mass/volume)Ordered By: Carloz Lerma on 05-23-2025 Creatinine [Mass/Vol] 0.82 mg/dL 0.70-1.20 [facility] Serum globulin measurementOr dered By: Carloz Lerma on 05-23-2025 Globulin (S) [Mass/Vol] 2.6 g/dL 2.2-4.2 [facility] Serum glucose measurement (m ass/volume)Ordered By: Carloz Lerma on 05-23-2025 Glucose [Mass/Vol] 102 mg/dL High 70-99 [facility] Serum or plasma alanine jerry otransferase (ALT) measurementOrdered By: Carloz Lerma on 05-23-2025 ALT [Catalytic activity/Vol] 10 U/L <35 [facility] Serum or plasma albumin devin urement (mass/volume)Ordered By: Carloz Lerma on 05-23-2025 Albumin [Mass/Vol] 3.6 g/dL 3.4-4.8 [facility] Serum or plasma albumin/glob ulin mass ratioOrdered By: Carloz Lerma on 05-23-2025 Albumin/Globulin [Mass ratio] 1.4 {ratio} 0.9-2.4 [facility] Serum or plasma alkaline albaro sphatase measurementOrdered By: Carloz Lerma on 05-23-2025 ALP [Catalytic activity/Vol] 55 U/L 35-104 [facility] Serum or plasma calcium devin urement (mass/volume)Ordered By: Carloz Lerma on 05-23-2025 Calcium [Mass/Vol] 8.7 mg/dL 7.6-11.0 [facility] Serum or plasma urea nitroge n measurement (mass/volume)Ordered By: Carloz Lerma on 05-23-2025 Urea nitrogen [Mass/Vol] 11 mg/dL 4-19 [facility] Sodium levelOrdered By: Seferino Lerma on 05-23-2025 Sodium [Moles/Vol] 135 mmol/L 133-145 [facility] Squamous epithelial cells de tection in urine sediment by light microscopyOrdered By: Carloz Lerma on 05-23-2025 Epithelial cells.squamous LM Ql (Urine sed) 0-5 SEEN /hpf 5-10 [facility] Total proteinOrdered By: Mikael Lerma on 05-23-2025 Protein [Mass/Vol] 6.2 g/dL 5.9-8.4 [facility] Troponin T HS 2 HRon 025 Trop T High Sen 15 ng/L High <=14 [facility] Comment on above: Performed By: #### L 501.2450, L100.0100, L500.4050, L501.4021 #### [facility] [address] [place], [address] Troponin T HS 4 HRon 025 Trop T High Sen Normal <=14 [facility] Comment on above: Result Comment: ANSLEY ENT DISCHARGED Performed By: #### L 499.0043 #### [facility] [address] [place], [address] Troponin T.cardiac [Mass/vol ume] in Serum or Plasma by High sensitivity methodOrdered By: Carloz eLrma on 05-23-2025 Troponin T.cardiac High sensitivity method [Mass/Vol] 15 ng/L High <14 [facility] Troponin T.cardiac High sensitivity method [Mass/Vol] 14 ng/L <14 [facility] Urinalysis, Completeon 05-23 BACTERIA 1+ /hpf Normal None Seen [facility] Comment on above: Order Comment: RD TER SPECIMEN Performed By: #### L 501.2450, L100.0100, L500.4050, L501.4021 #### [facility] [address] [place], [address] EPI,SQUAMOUS 0-5 SEEN Normal 5-10 [facility] Comment on above: Order Comment: RD TER SPECIMEN Performed By: #### L 501.2450, L100.0100, L500.4050, L501.4021 #### [facility] [address] [place], [address] RBC 10-25 SEEN Normal 0-5 [facility] Comment on above: Order Comment: RD TER SPECIMEN Performed By: #### L 501.2450, L100.0100, L500.4050, L501.4021 #### [facility] [address] [place], [address] WBC 5-10 SEEN Normal 0-5 [facility] Comment on above: Order Comment: RD TER SPECIMEN Performed By: #### L 501.2450, L100.0100, L500.4050, L501.4021 #### [facility] [address] [place], [address] Mucus Ql (Urine sed) 0 SEEN Normal [facility] Comment on above: Order Comment: RD TER SPECIMEN Performed By: #### L 501.2450, L100.0100, L500.4050, L501.4021 #### [facility] [address] [place], [address] Urine clarityOrdered By: Mikael Lerma on 05-23-2025 Clarity (U) Clear Clear [facility] Urine color determinationOrd ered By: Carloz Lerma on 05-23-2025 Color (U) Yellow Yellow [facility] Urine glucose detectionOrder ed By: Carloz Lerma on 05-23-2025 Glucose Ql (U) 1000 mg/dl High Normal [facility] Urine leukocyte esterase det ection by dipstickOrdered By: Carloz Lerma on 05-23-2025 Leukocyte esterase Test strip Ql (U) 500 /ul High Negative [facility] Urine pHOrdered By: Carloz purdy on 05-23-2025 pH (U) 6.0 [pH] 5.0 - 8.0 [facility] Urine sediment bacteria coun t by microscopy (number/high power field)Ordered By: Carloz Lerma on 05-23-2025 Bacteria LM.HPF (Urine sed) [#/Area] 1 /[HPF] None Seen [facility] Urine specific gravity measu rementOrdered By: Carloz Lerma on 05-23-2025 Specific gravity (U) [Rel density] 1.020 1.002-1.03 0 [facility] Urine urobilinogen measureme ntOrdered By: Carloz Lerma on 05-23-2025 Urobilinogen Ql (U) Normal mg/dl Normal [facility] White blood cell (WBC) count Ordered By: Carloz Lerma on 05-23-2025 WBC (Bld) [#/Vol] 8.0 10*3/uL 4.4-11.0 [facility] White blood cell countOrdere d By: Carloz Lerma on 05-23-2025 White blood cell count 5-10 SEEN /hpf 0-5 [facility] CBC-Complete Blood Cnt No Di ffon 05-05-2025 Erythrocyte distribution width (RBC) [Ratio] 14.9 % High 11.6-14.6 [facility] Comment on above: Order Comment: Order Date: 10/28/24Order Info: [id number] - CBC Performed By: #### L 501.2450, L100.0100, L500.4050, L501.4021 #### [facility] [address] [place], [address] Hematocrit (Bld) [Volume fraction] 33.6 % Low 37-47 [facility] Comment on above: Order Comment: Order Date: 10/28/24Order Info: [id number] - CBC Performed By: #### L 501.2450, L100.0100, L500.4050, L501.4021 #### [facility] [address] [place], [address] Hemoglobin (Bld) [Mass/Vol] 10.3 g/dL Low 12.0-15.0 [facility] Comment on above: Order Comment: Order Date: 10/28/24Order Info: [id number] - CBC Performed By: #### L 501.2450, L100.0100, L500.4050, L501.4021 #### [facility] [address] [place], [address] MCH (RBC) [Entitic mass] 27.5 pg Normal 27.0-32.0 [facility] Comment on above: Order Comment: Order Date: 10/28/24Order Info: [id number] - CBC Performed By: #### L 501.2450, L100.0100, L500.4050, L501.4021 #### [facility] [address] [place], [address] MCHC (RBC) [Mass/Vol] 30.7 g/dL Low 32-36 [facility] Comment on above: Order Comment: Order Date: 10/28/24Order Info: [id number] - CBC Performed By: #### L 501.2450, L100.0100, L500.4050, L501.4021 #### [facility] [address] [place], [address] MCV (RBC) [Entitic vol] 89.8 fL Normal 81-99 [facility] Comment on above: Order Comment: Order Date: 10/28/24Order Info: [id number] - CBC Performed By: #### L 501.2450, L100.0100, L500.4050, L501.4021 #### [facility] [address] [place], [address] Platelet mean volume (Bld) [Entitic vol] 10.1 fL Normal 6.2-12.0 [facility] Comment on above: Order Comment: Order Date: 10/28/24Order Info: [id number] - CBC Performed By: #### L 501.2450, L100.0100, L500.4050, L501.4021 #### [facility] [address] [place], [address] Platelets (Bld) [#/Vol] 253 10*3/uL Normal 150-450 [facility] Comment on above: Order Comment: Order Date: 10/28/24Order Info: [id number] - CBC Performed By: #### L 501.2450, L100.0100, L500.4050, L501.4021 #### [facility] [address] [place], [address] RBC (Bld) [#/Vol] 3.74 10*6/uL Low 4.2-5.[address] [facility] Comment on above: Order Comment: Order Date: 03/11/25Order Info: [id number] - CBC Performed By: #### L 501.2450, L100.0100, L500.4050, L501.4021 #### [facility] [address] [place], [address] RDW SD 49.7 fl High 35.1-43.9 [facility] Comment on above: Order Comment: Order Date: 10/28/24Order Info: [id number] - CBC Performed By: #### L 501.2450, L100.0100, L500.4050, L501.4021 #### [facility] [address] [place], [address] WBC (Bld) [#/Vol] 6.3 10*3/uL Normal 4.4-11.0 [facility] Comment on above: Order Comment: Order Date: 10/28/24Order Info: [id number] - CBC Performed By: #### L 501.2450, L100.0100, L500.4050, L501.4021 #### [facility] [address] [place], [address] Erythrocyte distribution wid th ratioOrdered By: Litzy Vazquez on 05-05-2025 Erythrocyte distribution width (RBC) [Ratio] 14.9 % High 11.6-14.6 [facility] Erythrocyte distribution wid th standard deviationOrdered By: Litzy Vazquez on 05-05-2025 Erythrocyte distribution width (RBC) [Ratio] 49.7 fl High 35.1-43.9 [facility] Ferritinon 05-05-2025 Ferritin [Mass/Vol] 10 ng/mL Low 22-[address] [facility] Comment on above: Order Comment: Order Date: 10/28/24Order Info: [id number] - FEOrder Info: [id number] - NIRMALA Performed By: #### L 501.2450, L100.0100, L500.4050, L501.4021 #### [facility] [address] [place], [address] Hematocrit Auto (Bld) [Volum e fraction]Ordered By: Litzy Vazquez on 05-05-2025 Hematocrit (Bld) [Volume fraction] 33.6 % Low 37-47 [facility] Hemoglobin measurementOrdere d By: Litzy Vazquez on 05-05-2025 Hemoglobin (Bld) [Mass/Vol] 10.3 g/dL Low 12.0-15.0 [facility] Ironon 05-05-2025 Iron [Mass/Vol] 22 ug/dL Low 50-170 [facility] Comment on above: Order Comment: Order Date: 10/28/24Order Info: [id number] - FEOrder Info: [id number] - NIRMALA Performed By: #### L 501.2450, L100.0100, L500.4050, L501.4021 #### [facility] [address] [place], [place], [address] Iron measurement (mass/mass) Ordered By: Litzy Vazquez on 05-05-2025 Iron (Unsp spec) [Mass/Mass] 22 ug/dL Low 50-170 [facility] MCV (mean corpuscular volume ) determinationOrdered By: Litzy Vazquez on 05-05-2025 MCV (RBC) [Entitic vol] 89.8 fL 81-99 [facility] Mean corpuscular hemoglobin (MCH) determinationOrdered By: Litzy Vazquez on 05-05-2025 MCH (RBC) [Entitic mass] 27.5 pg 27.0-32.0 [facility] Mean corpuscular hemoglobin concentration (MCHC) determinationOrdered By: Litzy Vazquez on 05-05-2025 MCHC (RBC) [Mass/Vol] 30.7 g/dL Low 32-36 [facility] Mean platelet volume determi nationOrdered By: Litzy Vazquez on 05-05-2025 Platelet mean volume (Bld) [Entitic vol] 10.1 fL 6.2-12.0 [facility] Platelet countOrdered By: Bernardo Vazquez on 05-05-2025 Platelets (Bld) [#/Vol] 253 10*3/uL 150-450 [facility] RBC Auto (Bld) [#/Vol]Ordere d By: Litzy Vazquez on 05-05-2025 RBC (Bld) [#/Vol] 3.74 10*6/uL Low 4.2-5.[address] [facility] Serum or plasma ferritin valdemar surement (mass/volume)Ordered By: Faustinoeduardo George on 05-05-2025 Ferritin [Mass/Vol] 10 ng/mL Low 22-[address] [facility] White blood cell (WBC) count Ordered By: Litzy Vazquez on 05-05-2025 WBC (Bld) [#/Vol] 6.3 10*3/uL 4.4-11.0 [facility] MR/BMSRita 04-28-2025 MR/KAZ [facility] [address] [place] [address] OFFICE VISIT Date of Service: 04/28/25 MR#: [id number] Acct: [id number] Name: SINDY SWEENEY Rep #: [id number] : 1945 Provider: Dr. Kiah Zimmerman i, MD Age/Sex: 79/F [place] [facility] [place]: Signed Intake Vital Signs 03/31/25 13:29 04/28/25 10:57 Height 5 ft 5 in 5 ft 5 in Weight: 192 lb BMI 31.9 BP 118/78 Pulse 74 Temp 97.3 F L Intake Visit Reasons: ptns Chief Complaint: PTNS treatment Bronze Chaser Required: No Is patient in pain?: No [...] denosumab 60 mg/mL subcutaneous 60 mg subcut [id number] 03/31/2505/14 History syringe (Prolia) fesoterodine 8 mg [...] nodes Exa (more content not included)... Normal [facility] MR/Bijal 03-31-2025 MR/KAZ [facility] [address] [place] [id number] OFFICE VISIT Date of Service: 03/31/25 MR#: [id number] Acct: [id number] Name: SINDY SWEENEY Rep #: [id number] : 1945 Provider: Dr. Kiah Zimmerman i, MD Age/Sex: 79/F Location: [facility] Status: Signed Intake Vital Signs 02/24/25 10:22 03/31/25 13:29 Height 5 ft 5 in 5 ft 5 in Weight: 195 lb BMI 32.4 BP 122/71 H Pulse 83 Temp 98.3 F Intake Visit Reasons: monthly PTNS Chief Complaint: PTNS treatment Bronze Chaser Required: No Is patient in pain?: No [...] denosumab 60 mg/mL subcutaneous 60 mg subcut [id number] 03/31/2508/13 History syringe (Prolia) fesoterodine 8 mg [...] lymph nod (more content not included)... Normal [facility] Protime w/INR Fingerstickon 03-03-2025 INR Coag (PPP) [Relative time] 2.0 {INR} Normal [facility] Comment on above: Result Comment: Crit ical Value > 4.0 Performed By: #### L 9200.0000 #### [facility] [address] [place], [place], [id number] Protime Coagsen 22.5 SEC High 11.7-14.9 [facility] Comment on above: Performed By: #### L 9200.0000 #### [facility] [address] [place], [place], [id number] International normalized rat io (INR) calculationOrdered By: Angelo Arias on 03-02-2025 INR Coag (Bld) [Relative time] 2.4 {INR} [facility] Prothrombin Time w/INRon INR Coag (PPP) [Relative time] 2.4 {INR} Normal [facility] Comment on above: Performed By: #### L 499.0043 #### [facility] [address] [place], [place], [address] PT Coag (PPP) [Time] 26.5 s High 11.7-14.[address] [facility] Comment on above: Performed By: #### L 499.0043 #### [facility] [address] [place], [place], [address] Prothrombin timeOrdered By: Angelo Arias on 03-02-2025 PT Coag (PPP) [Time] 26.5 s High 11.7-14.[address] [facility] International normalized rat io (INR) measurement by fingerstickOrdered By: Angelo Arias on 02-27-2025 INR Coag (BldC) [Relative time] 2.0 [facility] Comment on above: Critical Value > 4.0 Prothrombin Time w/INRon INR Normal [facility] Comment on above: Order Comment: Order Date: 02/24/25Order Info: [id number] - PT Result Comment: DARI ERSTICK Performed By: #### L 501.2450, L100.0100, L500.4050, L501.4021 #### [facility] [address] [place], [place], [id number] PROTIME Normal 11.7-14.9 [facility] Comment on above: Order Comment: Order Date: 02/24/25Order Info: [id number] - PT Result Comment: DARI ERSTICK Performed By: #### L 501.2450, L100.0100, L500.4050, L501.4021 #### [facility] [address] [place], [place], [address] Whole blood prothrombin time Ordered By: Angelo Arias on 02-27-2025 PT Coag (Bld) [Time] 22.5 s High 11.7-14.[address] [facility] [employer] Office Visit Reporton 02-24-2025 [facility] Office Visit Report [address], [address] [place] [address] OFFICE VISIT Date of Service: 02/24/25 MR#: [id number] Acct: [id number] Name: SINDY SWEENEY Rep #: [id number] : 1945 Provider: PATI villavicencio Age/Sex: 79/F [place] [facility] [place]: Signed Intake Vital Signs 12/02/24 13:05 02/24/25 10:16 02/24/25 10:22 Height 5 ft 5 in 5 ft 5 in 5 ft 5 in Weight: 203 lb 2 oz BMI 33.7 BP 140/82 H Intake Visit Reasons: Pessary Check Chief Complaint: pessary check Bronze Chaser Required: No Is patient in pain?: No [...] home: Yes additional social history: - Max [facility] Pessary Check Details: SINDY SWEENEY is a [...] Z46.89 Cystoc (more content not included)... Normal [facility] [employer] Office Visit Reporton 12-02-2024 [facility] Office Visit Report [facility] [address], [address] [place] [address] OFFICE VISIT Date of Service: 12/02/24 MR#: [id number] Acct: [id number] Name: SINDY SWEENEY Rep #: [id number] : 1945 Provider: PATI villavicencio Age/Sex: 79/F Location[place] [facility] [place] Status: Signed Intake Vital Signs 09/21/24 07:10 12/02/24 12:59 12/02/24 13:05 Height 5 ft 5 in 5 ft 5 in 5 ft 5 in Weight: 195 lb BMI 32.4 BP 136/82 H Intake Visit Reasons: PESSARY CHECK Chief Complaint: Pessary check Bronze Chaser Required: No Is patient in pain?: No [...] B[facility] F[facility] Unknown Kiah-1970 Unknown Charlie-1973 ROS [...] Level of (more content not included)... Normal [facility] Breast Complete Unilateralon 10-21-2024 Breast Complete Unilateral [facility] [address] [place] [address] Breast Complete Unilateral MR#: [id number] Acct: [id number] Name: SINDY SWEENEY Rep #: [id number] : 1945 F 79 From: Linda Mcneill MD PCP: Dr. Litzy Vazquez MD Status: REG CLI Study: Breast Complete Unilateral Date of Exam: 10/21 Exam# [id number] Ordering Dr: Litzy Vazquez PROCEDURE: DIAG MAMM [...] SCREENING. Follow-up code: Routine Follow-up Reading Location: [facility] CC: Dr. Litzy Vazquez MD Therapeutic Specialist: Signed Normal [facility] Breast imaging reportOrdered By: Linda Mcneill on 10-21-2024 Study report [facility] [address] [place] [id number] DIAG MAMM W/CAD, UNILAT MR#: [id number] Acct: [id number] Name: SINDY WSEENEY Rep #: [id number] : 1945 F 79 From: Lily Mcneill MD PCP: Dr. Litzy Vazquez MD Status: REG CLI Study:DIAG MAMM W/CAD, UNILAT Date of Exam: 10/21/24 Exam# [id number] Ordering Dr: Aakash Vazquez MD PROCEDURE: DIAG [...] SCREENING. Follow-up code: Routine Follow-up Reading Location: [id number] CC: Dr. Litzy Vazquez MD ~ Therapeutic Specialist: Signed [facility] Study report [facility] [address] [place] [address] Lt Brst Unilat Bruno Add On MR#: [id number] Acct: [id number] Name: SINDY SWEENEY Rep #: [id number] : 1945 F 79 From: Lily Mcneill MD PCP: Dr. Litzy Vazquez MD Status: REG CLI Study:Lt Brst Unilat Bruno Add On Date of Exam : 10/21/24 Exam# [id number] Ordering Dr: Aakash Vazquez MD PROCEDURE: DIAG [...] SCREENING. Follow-up code: Routine Follow-up Reading Location: [facility] CC: Dr. Litzy Vazquez MD ~ Therapeutic Specialist: Signed [facility] DIAG MAMM W/CAD, UNILATon DIAG MAMM W/CAD, UNILAT [facility] Imaging Services [address] [place] [address] DIAG MAMM W/CAD, UNILAT MR#: [id number] Acct: [id number] Name: SINDY SWEENEY Rep #: [id number] : 1945 F 79 From: Linda Mcneill MD PCP: Dr. Litzy Vazquez MD Status: REG CLI Study: DIAG MAMM W/CAD, UNILAT Date of Exam: 10/21/24 Exam# [id number] Ordering Dr: Litzy Vazquez PROCEDURE: DIAG MAMM [...] SCREENING. Follow-up code: Routine Follow-up Reading Location: [facility] CC: Dr. Litzy Vazquez MD Therapeutic Specialist: Signed Normal [facility] Lt Brst Unilat Bruno Add Onon 10-21-2024 Lt Brst Unilat Bruno Add On [facility] Imaging Services [address] [place] [address] Lt Brst Unilat Bruno Add On MR#: [id number] Acct: [id number] Name: SINDY SWEENEY Rep #: [id number] : 1945 F 79 From: Linda Mcneill MD PCP: Dr. Litzy Vazquez MD Status: REG CLI Study: Lt Brst Unilat Bruno Add On Date of Exam: 10/21 Exam# [id number] Ordering Dr: Litzy Vazquez PROCEDURE: DIAG MAMM [...] SCREENING. Follow-up code: Routine Follow-up Reading Location: [id number] CC: Dr. Litzy Vazquez MD Therapeutic Specialist: Signed Normal [facility] Dexa Bone Density/Append Ske jerome 10-08-2024 Dexa Bone Density/Append Skel [facility] Imaging Services [address] [place] [address] Dexa Bone Density/Append Skel MR#: [id number] Acct: [id number] Name: SINDY SWEENEY Rep #: [id number] : 1945 F 79 From: Sunitha Pepper PCP: Dr. Litzy Vazquez MD Status: [facility] Study: Dexa Bone Density/Append Skel Date of Exam: Exam# [id number] Ordering Dr: Litzy Vazquez PROCEDURE: DEXA BONE [...] is a trademark of the [employer]'s [employer] for Metabolic Bone Disease, World Health Organization (WHO) Collaborating [place]. 1-The 10-year probability of fracture may be lower than reported if the patient has received treatment. 2-Major Osteoporotic Fracture: Clinical Spine, Forearm, Hip or Shoulder. The T-scores are also available for review on the [facility] PACS or by accessing the [facility] electronic medical record. BD/Dexa Bone Density/Append Skel IMPRESSION: OSTEOPOROSIS. Reading Location: [id number] CC: Dr. Litzy Vazquez MD Therapeutic Specialist: Signed Normal [facility] SCRN MAMM (CAD)W/BRUNO BILATo n 10-08-2024 SCRN MAMM (CAD)W/BRUNO BILAT [facility] Imaging Services [address] [place] [address] SCRN MAMM (CAD)W/BRUNO BILAT MR#: [id number] Acct: [id number] Name: SINDY SWEENEY Rep #: [id number] : 1945 F 79 From: Sunitha Peppre PCP: Dr. Litzy Vazquez MD Status: REG CLI Study: SCRN MAMM (CAD)W/BRUNO BILAT Date of Exam: 09/20 05/14 Exam# [id number] Ordering Dr: Litzy Vazquez PROCEDURE: SCRN MAMM [...] code: Additional Views obtained/call backs Reading Location: [id number] CC: Dr. Litzy Vazquez MD Therapeutic Specialist: Signed Normal [facility] Urine Cultureon 09-24-2024 URC Klebsiella pneumonia e sp pneum [place] Count 80,000-100,000 Klebsiella pneumoniae sp pneum: REACTION [...] TMP SMX Islt SIA <=20 S Normal [facility] Comment on above: Performed By: #### L 501.2450, L100.0100, L500.4050, L501.4021 #### [facility] Laboratory [address] [place], [place], [id number] Absolute neutrophil countOrd ered By: Haseeb Morales on 09-21-2024 Neutrophils (Bld) [#/Vol] 11.0 10*3/uL High 2.0-7.7 [facility] Albumin to globulin ratioOrd ered By: Haseeb joseDev on 09-21-2024 Albumin/Globulin [Mass ratio] 1.1 {ratio} 0.9-2.4 [facility] Basophil percentageOrdered B y: Haseeb GerberDev on 09-21-2024 Basophils/100 WBC (Bld) 0.2 % 0-1 [facility] Bilirubin Test strip Ql (U)O rdered By: [facility]ellDev on 09-21-2024 Bilirubin Ql (U) Negative Negative [facility] Bilirubin, totalOrdered By: [facility] CenterYandel on 09-21-2024 Bilirubin [Mass/Vol] 0.60 mg/dL 0.20-1.[address] [facility] Comment on above: For patients on eltr ombopag therapy, use of Dimension [place] TBIL is not recommended. Blood urea nitrogen (BUN)/cr eatinine ratioOrdered By: Haseebjonathan Morales on 09-21-2024 Urea nitrogen/Creatinine [Mass ratio] 14.0 mg/mg 10-20 [facility] CBC W/Diff, Automatedon Absolute Lymph 0.39 X10 3/uL Low 0.83-4.51 [facility] Comment on above: Performed By: #### L 501.2450, L100.0100, L500.4050, L501.4021 #### [facility] Laboratory [address] [place], [address] Absolute Neut 11.0 X10 3/uL High 2.0-7.7 [facility] Comment on above: Performed By: #### L 501.2450, L100.0100, L500.4050, L501.4021 #### [facility] Laboratory [address] [place], [address] Basophils/100 WBC (Bld) 0.2 % Normal 0-1 [facility] Comment on above: Performed By: #### L 501.2450, L100.0100, L500.4050, L501.4021 #### [facility] Laboratory [address] [place], [address] Eosinophils/100 WBC (Bld) 0.0 % Normal 0-5 [facility] Comment on above: Performed By: #### L 501.2450, L100.0100, L500.4050, L501.4021 #### [facility] [address] [place], [address] Erythrocyte distribution width (RBC) [Ratio] 13.2 % Normal 11.6-14.6 [facility] Comment on above: Performed By: #### L 501.2450, L100.0100, L500.4050, L501.4021 #### [facility] Laboratory [address] [place], [address] Hematocrit (Bld) [Volume fraction] 40.4 % Normal 37-47 [facility] Comment on above: Performed By: #### L 501.2450, L100.0100, L500.4050, L501.4021 #### [facility] [address] [place], [address] Hemoglobin (Bld) [Mass/Vol] 13.0 g/dL Normal 12.0-15.0 [facility] Comment on above: Performed By: #### L 501.2450, L100.0100, L500.4050, L501.4021 #### [facility] [address] [place], [address] IG% 0.700 Normal 0.0-0.9 [facility] Comment on above: Result Comment: IG% - Immature Granulocytes (promyelocytes, myelocytes and metamyelocytes) > 1% indicates that a LEFT SHIFT is Present. Performed By: #### L 501.2450, L100.0100, L500.4050, L501.4021 #### [facility] [address] [place], [address] Lymphocytes/100 WBC (Bld) 3.4 % Low 19-41 [facility] Comment on above: Performed By: #### L 501.2450, L100.0100, L500.4050, L501.4021 #### [facility] [address] [place], [address] MCH (RBC) [Entitic mass] 30.9 pg Normal 27.0-32.0 [facility] Comment on above: Performed By: #### L 501.2450, L100.0100, L500.4050, L501.4021 #### [facility] [address] [place], [address] MCHC (RBC) [Mass/Vol] 32.2 g/dL Normal 32-36 [facility] Comment on above: Performed By: #### L 501.2450, L100.0100, L500.4050, L501.4021 #### [facility] [address] [place], [address] MCV (RBC) [Entitic vol] 96.0 fL Normal 81-99 [facility] Comment on above: Performed By: #### L 501.2450, L100.0100, L500.4050, L501.4021 #### [facility] [address] [place], [address] Monocytes/100 WBC (Bld) 1.0 % Normal 0-10 [facility] Comment on above: Performed By: #### L 501.2450, L100.0100, L500.4050, L501.4021 #### [facility] [address] [place], [address] Neutrophils/100 WBC (Bld) 94.7 % High 47-70 [facility] Comment on above: Performed By: #### L 501.2450, L100.0100, L500.4050, L501.4021 #### [facility] [address] [place], [address] Nucleated RBC (Bld) [#/Vol] 0 10*3/uL Normal 0-5 [facility] Comment on above: Performed By: #### L 501.2450, L100.0100, L500.4050, L501.4021 #### [facility] [address] [place], [address] Platelet mean volume (Bld) [Entitic vol] 9.5 fL Normal 6.2-12.0 [facility] Comment on above: Performed By: #### L 501.2450, L100.0100, L500.4050, L501.4021 #### [facility] [address] [place], [address] Platelets (Bld) [#/Vol] 169 10*3/uL Normal 150-450 [facility] Comment on above: Performed By: #### L 501.2450, L100.0100, L500.4050, L501.4021 #### [facility] [address] [place], [address] RBC (Bld) [#/Vol] 4.21 10*6/uL Normal 4.2-5.[address] [facility] Comment on above: Performed By: #### L 501.2450, L100.0100, L500.4050, L501.4021 #### [facility] [address] [place], [address] RDW SD 46.1 fl High 35.1-43.9 [facility] Comment on above: Performed By: #### L 501.2450, L100.0100, L500.4050, L501.4021 #### [facility] [address] [place], [address] WBC (Bld) [#/Vol] 11.6 10*3/uL High 4.4-11.[address] [facility] Comment on above: Performed By: #### L 501.2450, L100.0100, L500.4050, L501.4021 #### [facility] [address] [place], [address] Carbon dioxide measurementOr dered By: Haseeb Morales on 09-21-2024 CO2 [Moles/Vol] 25.0 mmol/L 21.0-32.0 [facility] Chest PA and Lateralon 09-21 Chest PA and Lateral [facility] Imaging Services [address] [place] [address] Chest PA and Lateral MR#: [id number] Acct: [id number] Name: SINDY SWEENEY Rep #: [id number] : 1945 F 79 From: Doc Herrera MD PCP: Dr. Litzy Vazquez MD Status: [facility] ER Study: Chest PA and Lateral Date of Exam: 09/21/24 Exam# [id number] Ordering Dr: Haseeb Morales DO PROCEDURE: CHEST [...] nonspecific. Reading Location: [facility] CC: Dr. Haseeb Morales, DO; Dr. Litzy Vazquez MD Therapeutic Specialist: Signed Normal [facility] Chloride measurementOrdered By: Haseeb Morales on 09-21-2024 Chloride [Moles/Vol] 105 mmol/L 98-[address] [facility] Comprehensive Metabolic Prof ilon 09-21-2024 Albumin [Mass/Vol] 3.6 g/dL Normal 3.2-5.0 [facility] Comment on above: Order Comment: 'TROP ' Serial specimen #1, #2 or #3: 1 Performed By: #### L 501.2450, L100.0100, L500.4050, L501.4021 #### [facility] Laboratory [address] [place], [address] Albumin/Globulin [Mass ratio] 1.1 {ratio} Normal 0.9-2.4 [facility] Comment on above: Order Comment: 'TROP ' Serial specimen #1, #2 or #3: 1 Performed By: #### L 501.2450, L100.0100, L500.4050, L501.4021 #### [facility] [address] [place], [address] ALK P 78 U/L Normal 45-117 [facility] Comment on above: Order Comment: 'TROP ' Serial specimen #1, #2 or #3: 1 Performed By: #### L 501.2450, L100.0100, L500.4050, L501.4021 #### [facility] [address] [place], [address] ALT [Catalytic activity/Vol] 16 U/L Normal 13-56 [facility] Comment on above: Order Comment: 'TROP ' Serial specimen #1, #2 or #3: 1 Performed By: #### L 501.2450, L100.0100, L500.4050, L501.4021 #### [facility] [address] [place], [address] AST [Catalytic activity/Vol] 17 U/L Normal 15-37 [facility] Comment on above: Order Comment: 'TROP ' Serial specimen #1, #2 or #3: 1 Performed By: #### L 501.2450, L100.0100, L500.4050, L501.4021 #### [facility] [address] [place], [address] Bilirubin [Mass/Vol] 0.60 mg/dL Normal 0.20-1.[address] [facility] Comment on above: Order Comment: 'TROP ' Serial specimen #1, #2 or #3: 1 Result Comment: For patients on eltrombopag therapy, use of Dimension [place] TBIL is not recommended. Performed By: #### L 501.2450, L100.0100, L500.4050, L501.4021 #### [facility] [address] [place], [address] BUN/CRE 14.0 RATIO Normal 10-20 [facility] Comment on above: Order Comment: 'TROP ' Serial specimen #1, #2 or #3: 1 Performed By: #### L 501.2450, L100.0100, L500.4050, L501.4021 #### [facility] [address] [place], [address] CA,Total 9.1 mg/dL Normal 8.5-10.1 [facility] Comment on above: Order Comment: 'TROP ' Serial specimen #1, #2 or #3: 1 Performed By: #### L 501.2450, L100.0100, L500.4050, L501.4021 #### [facility] [address] [place], [address] Chloride [Moles/Vol] 105 mmol/L Normal 98-[address] [facility] Comment on above: Order Comment: 'TROP ' Serial specimen #1, #2 or #3: 1 Performed By: #### L 501.2450, L100.0100, L500.4050, L501.4021 #### [facility] [address] [place], [address] CO2 [Moles/Vol] 25.0 mmol/L Normal 21.0-32.0 [facility] Comment on above: Order Comment: 'TROP ' Serial specimen #1, #2 or #3: 1 Performed By: #### L 501.2450, L100.0100, L500.4050, L501.4021 #### [facility] [address] [place], [address] Creatinine [Mass/Vol] 0.79 mg/dL Normal 0.55-1.02 [facility] Comment on above: Order Comment: 'TROP ' Serial specimen #1, #2 or #3: 1 Result Comment: The validity of the calculated GFR GFRAA in patients over 70 years has not been determined. Clinical correlation is essential. Performed By: #### L 501.2450, L100.0100, L500.4050, L501.4021 #### [facility] [address] [place], [address] ECRCL 63.59 ml/min Normal [facility] Comment on above: Order Comment: 'TROP ' Serial specimen #1, #2 or #3: 1 Performed By: #### L 501.2450, L100.0100, L500.4050, L501.4021 #### [facility] [address] [place], [address] EST GFR - AA 90 mL/min Normal >60 [facility] Comment on above: Order Comment: 'TROP ' Serial specimen #1, #2 or #3: 1 Result Comment: Afri can Qatari GFR Calc Performed By: #### L 501.2450, L100.0100, L500.4050, L501.4021 #### [facility] [address] [place], [address] GAP 7 Normal 5-15 [facility] Comment on above: Order Comment: 'TROP ' Serial specimen #1, #2 or #3: 1 Performed By: #### L 501.2450, L100.0100, L500.4050, L501.4021 #### [facility] [address] [place], [address] GFR/1.73 sq M.predicted among non-blacks MDRD (S/P/Bld) [Vol rate/Area] 74 mL/min/{1.73_m2} Normal >60 [facility] Comment on above: Order Comment: 'TROP ' Serial specimen #1, #2 or #3: 1 Result Comment: Non- GFR Calc Performed By: #### L 501.2450, L100.0100, L500.4050, L501.4021 #### [facility] [address] [place], [address] Globulin (S) [Mass/Vol] 3.3 g/dL Normal 2.2-4.2 [facility] Comment on above: Order Comment: 'TROP ' Serial specimen #1, #2 or #3: 1 Performed By: #### L 501.2450, L100.0100, L500.4050, L501.4021 #### [facility] [address] [place], [address] Glucose [Mass/Vol] 114 mg/dL High 74-106 [facility] Comment on above: Order Comment: 'TROP ' Serial specimen #1, #2 or #3: 1 Result Comment: Fast ing Glucose result from 100 to 125 mg/dL suggests IMPAIRED HOMEOSTASIS per A.D.A. criteria. Performed By: #### L 501.2450, L100.0100, L500.4050, L501.4021 #### [facility] [address] [place], [address] Potassium [Moles/Vol] 4.7 mmol/L Normal 3.5-5.1 [facility] Comment on above: Order Comment: 'TROP ' Serial specimen #1, #2 or #3: 1 Performed By: #### L 501.2450, L100.0100, L500.4050, L501.4021 #### [facility] [address] [place], [address] Sodium [Moles/Vol] 137 mmol/L Normal 136-145 [facility] Comment on above: Order Comment: 'TROP ' Serial specimen #1, #2 or #3: 1 Performed By: #### L 501.2450, L100.0100, L500.4050, L501.4021 #### [facility] [address] [place], [address] T PROT 6.9 g/dL Normal 6.4-8.2 [facility] Comment on above: Order Comment: 'TROP ' Serial specimen #1, #2 or #3: 1 Performed By: #### L 501.2450, L100.0100, L500.4050, L501.4021 #### [facility] [address] [place], [address] Urea nitrogen [Mass/Vol] 11 mg/dL Normal 7-18 [facility] Comment on above: Order Comment: 'TROP ' Serial specimen #1, #2 or #3: 1 Performed By: #### L 501.2450, L100.0100, L500.4050, L501.4021 #### [facility] [address] [place], [address] Emergency Department Summary on 09-21-2024 Emergency Department Summary [facility] Medical Records Department [address] [place] [address] Emergency Department Summary 09/21/24 MR#: [id number] Acct: [id number] Name: ZAHRASINDY Rep #: [id number] : 1945 79 From: Haseeb Morales DO [...] intact Psych: Cooperative, appropriate mood and affect [facility] Medical History Knee injury Incontinence Phlebitis and [...] 84 8 (more content not included)... Normal [facility] Eosinophil percentageOrdered By: Haseeb Morales on 09-21-2024 Eosinophils/100 WBC (Bld) 0.0 % 0-5 [facility] Epithelial cells.squamous LM Ql (Urine sed)Ordered By: Haseeb Morales on 09-21-2024 Epithelial cells.squamous LM.HPF (Urine sed) [#/Area] 0 /[HPF] 5-10 [facility] Erythrocyte distribution wid th ratioOrdered By: [facility] CenterYadnel on 09-21-2024 Erythrocyte distribution width (RBC) [Ratio] 13.2 % 11.6-14.6 [facility] Erythrocyte distribution wid th standard deviationOrdered By: Henderson Buzz Méndez on 09-21-2024 Erythrocyte distribution width (RBC) [Entitic vol] 46.1 fL High 35.1-43.9 [facility] Estimated glomerular filtrat ion rate (GFR) AmericanOrdered By: Haseeb Morales on 09-21-2024 Estimated GFR (MDRD) Amer 90 mL/min >60 [facility] Comment on above: GFR Calc Estimation of creatinine cynthia aranceOrdered By: Haseeb Morales on 09-21-2024 Estimated Creatinine Clearance Calc 63.59 ml/min [facility] Glomerular filtration rate ( GFR) estimationOrdered By: Haseeb Morales on 09-21-2024 Estimated GFR (MDRD) Non-Af Amer 74 mL/min >60 [facility] Comment on above: Non- GFR Calc Glucose Ql (U)Ordered By: Mehran Morales on 09-21-2024 Urine Glucose (UA) Normal mg/dl Normal [facility] Glucose measurementOrdered B y: Haseeb Morales on 09-21-2024 Glucose [Mass/Vol] 114 mg/dL High 74-106 [facility] Comment on above: Fasting Glucose resu lt from 100 to 125 mg/dL suggests IMPAIRED HOMEOSTASIS per A.D.A. criteria. Hematocrit Auto (Bld) [Volum e fraction]Ordered By: Haseebjonathan Morales on 09-21-2024 Hematocrit (Bld) [Volume fraction] 40.4 % 37-47 [facility] Hemoglobin measurementOrdere d By: Haseeb Morales on 09-21-2024 Hemoglobin (Bld) [Mass/Vol] 13.0 g/dL 12.0-15.0 [facility] Immature granulocytes/100 WB C Auto (Bld)Ordered By: Haseeb Morales on 09-21-2024 Immature granulocytes/100 WBC (Bld) 0.700 % 0.0-0.9 [facility] Comment on above: IG% - Immature Granu locytes (promyelocytes, myelocytes and metamyelocytes) > 1% indicates that a LEFT SHIFT is Present. Influenza virus A and B and SARS-CoV-2 (COVID-19) and Respiratory syncytial virus RNAOrdered By: Haseeb Morales on 09-21-2024 SARS-CoV-2 (COVID-19) RNA CHRISTOPH+probe Ql (Unsp spec) [facility] Ketones Test strip Ql (U)Ord ered By: Haseebjonathan Morales on 09-21-2024 Ketones Ql (U) Negative Negative [facility] L501.4020on 09-21-2024 TROPONIN-I HS 8 pg/mL Normal 3.0-54.0 [facility] Comment on above: Order Comment: 'TROP ' Serial specimen #1, #2 or #3: 1 Result Comment: Plea se Note: New Test Units and Gender Specific Reference Ranges. For more information see Policy Stat Procedure [place] High Sensitivity Troponin (TNIH) and attachments. Performed By: #### L 501.2450, L100.0100, L500.4050, L501.4021 #### [facility] [address] [place], [place], [id number] Laboratory - Chemistry and C hemistry - challengeOrdered By: Haseeb Morales on 09-21-2024 AST [Catalytic activity/Vol] 17 U/L 15-37 [facility] Lymphocytes Auto (Unsp spec) [#/Vol]Ordered By: Haseeb Carmen on 09-21-2024 Lymphocytes (Bld) [#/Vol] 0.39 10*3/uL Low 0.83-4.51 [facility] Lymphocytes/100 WBC Auto (Un sp spec)Ordered By: Haseebjonathan Morales on 09-21-2024 Lymphocytes/100 WBC (Bld) 3.4 % Low 19-41 [facility] M100.678on 09-21-2024 M100.678 Pending SARS-CoV-2 (COVID 19) Negative INFLUENZA A Negative INFLUENZA B Negative RSV PCR Negative Normal [facility] Comment on above: Performed By: #### L 501.2450, L100.0100, L500.4050, L501.4021 #### [facility] [address] [place], [place], [id number] MCV (mean corpuscular volume ) determinationOrdered By: Haseeb Morales on 09-21-2024 MCV (RBC) [Entitic vol] 96.0 fL 81-99 [facility] Mean corpuscular hemoglobin (MCH) determinationOrdered By: Haseeb Morales on 09-21-2024 MCH (RBC) [Entitic mass] 30.9 pg 27.0-32.0 [facility] Mean corpuscular hemoglobin concentration (MCHC) determinationOrdered By: Haseeb Morales on 09-21-2024 MCHC (RBC) [Mass/Vol] 32.2 g/dL 32-36 [facility] Mean platelet volume determi nationOrdered By: Haseeb Morales on 09-21-2024 Platelet mean volume (Bld) [Entitic vol] 9.5 fL 6.2-12.0 [facility] Microscopic analysis of urin e for red blood cells (RBC)Ordered By: Haseeb Morales on 09-21-2024 Urine RBC 5-10 SEEN /hpf 0-5 [facility] Monocyte percentageOrdered B y: Haseeb Morales on 09-21-2024 Monocytes/100 WBC (Bld) 1.0 % 0-10 [facility] Mucus LM Ql (Urine sed)Order ed By: Haseeb Morales on 09-21-2024 Mucus Ql (Urine sed) 0 SEEN /hpf [facility] Neutrophil percentageOrdered By: Haseeb Morales on 09-21-2024 Neutrophils/100 WBC (Bld) 94.7 % High 47-70 [facility] Nitrite Test strip Ql (U)Ord ered By: Haseeb Morales on 09-21-2024 Nitrite Ql (U) Negative Negative [facility] [facility] Nucleated red blood cell per centageOrdered By: Haseeb Morales on 09-21-2024 Nucleated RBC/100 WBC (Bld) [Ratio] 0 % 0-5 [facility] Platelet countOrdered By: Mehran Morales on 09-21-2024 Platelets (Bld) [#/Vol] 169 10*3/uL 150-450 [facility] Potassium measurementOrdered By: Haseeb Morales on 09-21-2024 Potassium [Moles/Vol] 4.7 mmol/L 3.5-5.1 [facility] Protein Test strip Ql (U)Ord ered By: Haseeb Morales on 09-21-2024 Protein Ql (U) 100 mg/dl High Negative [facility] RBC Auto (Bld) [#/Vol]Ordere d By: Haseeb Morales on 09-21-2024 RBC (Bld) [#/Vol] 4.21 10*6/uL 4.2-5.[address] [facility] Serum anion gap measurementO rdered By: Haseeb Morales on 09-21-2024 Anion gap [Moles/Vol] 7 mmol/L 5-15 [facility] Serum globulin measurementOr dered By: Haseeb Morales on 09-21-2024 Globulin (S) [Mass/Vol] 3.3 g/dL 2.2-4.2 [facility] Serum or plasma alanine jerry otransferase (ALT) measurementOrdered By: Haseeb Morales on 09-21-2024 ALT [Catalytic activity/Vol] 16 U/L 13-56 [facility] Serum or plasma albumin devin urement (mass/volume)Ordered By: Haseeb Méndez on 09-21-2024 Albumin [Mass/Vol] 3.6 g/dL 3.2-5.0 [facility] Serum or plasma alkaline albaro sphatase measurementOrdered By: Haseeb Morales on 09-21-2024 ALP [Catalytic activity/Vol] 78 U/L 45-117 [facility] Serum or plasma calcium devin urement (mass/volume)Ordered By: Haseeb Méndez on 09-21-2024 Calcium [Mass/Vol] 9.1 mg/dL 8.5-10.1 [facility] Serum or plasma creatinine m easurement (mass/volume)Ordered By: Haseeb Méndez on 09-21-2024 Creatinine [Mass/Vol] 0.79 mg/dL 0.55-1.02 [facility] Comment on above: The validity of the calculated GFR & GFRAA in patients over 70 years has not been determined. Clinical correlation is essential. Serum or plasma urea nitroge n measurement (mass/volume)Ordered By: Haseeb Morales on 09-21-2024 Urea nitrogen [Mass/Vol] 11 mg/dL 7-18 [facility] Sodium levelOrdered By: Kushal Morales on 09-21-2024 Sodium [Moles/Vol] 137 mmol/L 136-145 [facility] Total proteinOrdered By: Rodolfo Morales on 09-21-2024 Protein [Mass/Vol] 6.9 g/dL 6.4-8.2 [facility] Troponin IOrdered By: Haseeb Morales on 09-21-2024 Troponin I High Sensitivity 8 pg/mL 3.0-54.0 [facility] Comment on above: Please Note: New Neftali t Units and Gender Specific Reference Ranges. For more information see Policy Stat Procedure [place] High Sensitivity Troponin (TNIH) and attachments. Urinalysis, Completeon 09-21 RBC 5-10 SEEN Normal 0-5 [facility] Comment on above: Order Comment: FAWN CTOR TO SPECIFY Performed By: #### L 499.0043 #### [facility] [address] [place], [address] BACTERIA 4+ /hpf Normal None Seen [facility] Comment on above: Order Comment: FAWN CTOR TO SPECIFY Performed By: #### L 499.0043 #### [facility] [address] [place], [address] WBC >100 SEEN Normal 0-5 [facility] Comment on above: Order Comment: FAWN CTOR TO SPECIFY Performed By: #### L 499.0043 #### [facility] [address] [place], [address] EPI,SQUAMOUS 0 SEEN Normal 5-10 [facility] Comment on above: Order Comment: FAWN CTOR TO SPECIFY Performed By: #### L 499.0043 #### [facility] [address] [place], [address] Mucus Ql (Urine sed) 0 SEEN Normal [facility] Comment on above: Order Comment: FAWN CTOR TO SPECIFY Performed By: #### L 499.0043 #### [facility] [address] [place], [address] Urine blood detectionOrdered By: Haseeb Morales on 09-21-2024 Urine Occult Blood 150 /ul High Negative [facility] Urine clarityOrdered By: Rodolfo Morales on 09-21-2024 Clarity (U) Cloudy Clear [facility] Urine color determinationOrd ered By: Haseeb Morales on 09-21-2024 Color (U) Yellow Yellow [facility] Urine cultureOrdered By: Rodolfo Morales on 09-21-2024 Bacteria identified Cx Nom (U) Klebsiella pneumoniae sp pneum Abnormal [facility] Urine leukocyte esterase det ection by dipstickOrdered By: Haseeb Morales on 09-21-2024 Leukocyte esterase Test strip Ql (U) 100 /ul High Negative [facility] Urine pHOrdered By: Haseeb Humphries on 09-21-2024 pH (U) 6.5 [pH] 5.0 - 8.0 [facility] Urine sediment bacteria coun t by microscopy (number/high power field)Ordered By: Haseeb Morales on 09-21-2024 Bacteria LM.HPF (Urine sed) [#/Area] 4 /[HPF] None Seen [facility] Urine specific gravity measu rementOrdered By: Haseeb Morales on 09-21-2024 Specific gravity (U) [Rel density] 1.010 1.002-1.03 0 [facility] Urobilinogen Ql (U)Ordered B y: Haseeb Morales on 09-21-2024 Urine Urobilinogen Normal mg/dl Normal [facility] White blood cell (WBC) count Ordered By: Haseeb Morales on 09-21-2024 WBC (Bld) [#/Vol] 11.6 10*3/uL High 4.4-11.[address] [facility] White blood cell countOrdere d By: Haseeb Morales on 09-21-2024 Urine WBC >100 SEEN /hpf 0-5 [facility] [employer] [facility] Visit Reporton 07-29-2024 [facility] [facility] Visit Report [address], [address] [place] [address] OFFICE VISIT Date of Service: 07/29/24 MR#: [id number] Acct: [id number] Name: SINDY SWEENEY Rep #: [id number] : 1945 Provider: PATI villavicencio Age/Sex: 78/F [place] [facility] [place]: Signed Intake Vital Signs 04/15/24 13:33 07/29/24 11:11 07/29/24 11:18 Height 5 ft 5 in 5 ft 5 in 5 ft 5 in Weight: 200 lb BMI 33.3 BP 134/78 H Intake Visit Reasons: PESSARY CHECK Chief Complaint: Pessary check Bronze Chaser Required: No Is patient in pain?: No [...] home: Yes additional social history: - Max [facility] PESSARY CHECK Details: SINDY SWEENEY [...] stress incontinence (more content not included)... Normal [facility] CBC W/Diff, Automatedon 10-2 Absolute Lymph 1.08 X10 3/uL Normal 0.83-4.51 [facility] Comment on above: Order Comment: BMP G OES TO THE REST GOES TO DR VAZQUEZ Performed By: #### L 509.1000, L501.5200, L501.9520, L506.1000, L503.6550, L500.4050, L503.6150, L300.3900, L501.2300, L500.4100, L503.0105, L100.0100, L100.9950 #### [facility] [address] [place], [place], [phone] ([phone] Absolute Neut 6.6 X10 3/uL Normal 2.0-7.7 [facility] Comment on above: Order Comment: BMP G OES TO THE REST GOES TO DR VAZQUEZ Performed By: #### L 509.1000, L501.5200, L501.9520, L506.1000, L503.6550, L500.4050, L503.6150, L300.3900, L501.2300, L500.4100, L503.0105, L100.0100, L100.9950 #### [facility] [address] [place], [address] Basophils/100 WBC (Bld) 0.2 % Normal 0-1 [facility] Comment on above: Order Comment: BMP G OES TO THE REST GOES TO DR VAZQUEZ Performed By: #### L 509.1000, L501.5200, L501.9520, L506.1000, L503.6550, L500.4050, L503.6150, L300.3900, L501.2300, L500.4100, L503.0105, L100.0100, L100.9950 #### [facility] [address] [place], [address] Eosinophils/100 WBC (Bld) 1.5 % Normal 0-5 [facility] Comment on above: Order Comment: BMP G OES TO THE REST GOES TO DR VAZQUEZ Performed By: #### L 509.1000, L501.5200, L501.9520, L506.1000, L503.6550, L500.4050, L503.6150, L300.3900, L501.2300, L500.4100, L503.0105, L100.0100, L100.9950 #### [facility] [address] [place], [address] Erythrocyte distribution width (RBC) [Ratio] 12.8 % Normal 11.6-14.6 [facility] Comment on above: Order Comment: BMP G OES TO THE REST GOES TO DR VAZQUEZ Performed By: #### L 509.1000, L501.5200, L501.9520, L506.1000, L503.6550, L500.4050, L503.6150, L300.3900, L501.2300, L500.4100, L503.0105, L100.0100, L100.9950 #### [facility] [address] [place], [address] Hematocrit (Bld) [Volume fraction] 38.7 % Normal 37-47 [facility] Comment on above: Order Comment: BMP G OES TO THE REST GOES TO DR VAZQUEZ Performed By: #### L 509.1000, L501.5200, L501.9520, L506.1000, L503.6550, L500.4050, L503.6150, L300.3900, L501.2300, L500.4100, L503.0105, L100.0100, L100.9950 #### [facility] [address] [facility] [place], [address] Hemoglobin (Bld) [Mass/Vol] 12.4 g/dL Normal 12.0-15.0 [facility] Comment on above: Order Comment: BMP G OES TO THE REST GOES TO DR VAZQUEZ Performed By: #### L 509.1000, L501.5200, L501.9520, L506.1000, L503.6550, L500.4050, L503.6150, L300.3900, L501.2300, L500.4100, L503.0105, L100.0100, L100.9950 #### [facility] [address] [facility] [place], [address] IG% 0.200 Normal 0.0-0.9 [facility] Comment on above: Order Comment: BMP G OES TO THE REST GOES TO DR VAZQUEZ Result Comment: IG% - Immature Granulocytes (promyelocytes, myelocytes and metamyelocytes) > 1% indicates that a LEFT SHIFT is Present. Performed By: #### L 509.1000, L501.5200, L501.9520, L506.1000, L503.6550, L500.4050, L503.6150, L300.3900, L501.2300, L500.4100, L503.0105, L100.0100, L100.9950 #### [facility] [address] [place], [address] Lymphocytes/100 WBC (Bld) 12.7 % Low 19-41 [facility] Comment on above: Order Comment: BMP G OES TO THE REST GOES TO DR VAZQUEZ Performed By: #### L 509.1000, L501.5200, L501.9520, L506.1000, L503.6550, L500.4050, L503.6150, L300.3900, L501.2300, L500.4100, L503.0105, L100.0100, L100.9950 #### [facility] [address] [place], [address] MCH (RBC) [Entitic mass] 31.0 pg Normal 27.0-32.0 [facility] Comment on above: Order Comment: BMP G OES TO THE REST GOES TO DR VAZQUEZ Performed By: #### L 509.1000, L501.5200, L501.9520, L506.1000, L503.6550, L500.4050, L503.6150, L300.3900, L501.2300, L500.4100, L503.0105, L100.0100, L100.9950 #### [facility] [address] [place], [address] MCHC (RBC) [Mass/Vol] 32.0 g/dL Normal 32-36 [facility] Comment on above: Order Comment: BMP G OES TO THE REST GOES TO DR VAZQUEZ Performed By: #### L 509.1000, L501.5200, L501.9520, L506.1000, L503.6550, L500.4050, L503.6150, L300.3900, L501.2300, L500.4100, L503.0105, L100.0100, L100.9950 #### [facility] [address] [place], [address] MCV (RBC) [Entitic vol] 96.8 fL Normal 81-99 [facility] Comment on above: Order Comment: BMP G OES TO THE REST GOES TO DR VAZQUEZ Performed By: #### L 509.1000, L501.5200, L501.9520, L506.1000, L503.6550, L500.4050, L503.6150, L300.3900, L501.2300, L500.4100, L503.0105, L100.0100, L100.9950 #### [facility] [address] [place], [address] Monocytes/100 WBC (Bld) 7.3 % Normal 0-10 [facility] Comment on above: Order Comment: BMP G OES TO THE REST GOES TO DR VAZQUEZ Performed By: #### L 509.1000, L501.5200, L501.9520, L506.1000, L503.6550, L500.4050, L503.6150, L300.3900, L501.2300, L500.4100, L503.0105, L100.0100, L100.9950 #### [facility] [address] [place], [address] Neutrophils/100 WBC (Bld) 78.1 % High 47-70 [facility] Comment on above: Order Comment: BMP G OES TO THE REST GOES TO DR VAZQUEZ Performed By: #### L 509.1000, L501.5200, L501.9520, L506.1000, L503.6550, L500.4050, L503.6150, L300.3900, L501.2300, L500.4100, L503.0105, L100.0100, L100.9950 #### [facility] [address] [place], [address] Nucleated RBC (Bld) [#/Vol] 0 10*3/uL Normal 0-5 [facility] Comment on above: Order Comment: BMP G OES TO THE REST GOES TO DR VAZQUEZ Performed By: #### L 509.1000, L501.5200, L501.9520, L506.1000, L503.6550, L500.4050, L503.6150, L300.3900, L501.2300, L500.4100, L503.0105, L100.0100, L100.9950 #### [facility] [address] [place], [address] Platelet mean volume (Bld) [Entitic vol] 9.1 fL Normal 6.2-12.0 [facility] Comment on above: Order Comment: BMP G OES TO THE REST GOES TO DR VAZQUEZ Performed By: #### L 509.1000, L501.5200, L501.9520, L506.1000, L503.6550, L500.4050, L503.6150, L300.3900, L501.2300, L500.4100, L503.0105, L100.0100, L100.9950 #### [facility] [address] [facility] [place], [address] Platelets (Bld) [#/Vol] 238 10*3/uL Normal 150-450 [facility] Comment on above: Order Comment: BMP G OES TO THE REST GOES TO DR VAZQUEZ Performed By: #### L 509.1000, L501.5200, L501.9520, L506.1000, L503.6550, L500.4050, L503.6150, L300.3900, L501.2300, L500.4100, L503.0105, L100.0100, L100.9950 #### [facility] [address] [place], [address] RBC (Bld) [#/Vol] 4.00 10*6/uL Low 4.2-5.[address] [facility] Comment on above: Order Comment: BMP G OES TO THE REST GOES TO DR VAZQUEZ Performed By: #### L 509.1000, L501.5200, L501.9520, L506.1000, L503.6550, L500.4050, L503.6150, L300.3900, L501.2300, L500.4100, L503.0105, L100.0100, L100.9950 #### [facility] [address] [place], [address] RDW SD 46.2 fl High 35.1-43.9 [facility] Comment on above: Order Comment: BMP G OES TO THE REST GOES TO DR VAZQUEZ Performed By: #### L 509.1000, L501.5200, L501.9520, L506.1000, L503.6550, L500.4050, L503.6150, L300.3900, L501.2300, L500.4100, L503.0105, L100.0100, L100.9950 #### [facility] [address] [facility] [address] [place], [place], [phone] WBC (Bld) [#/Vol] 8.5 10*3/uL Normal 4.4-11.0 [facility] Comment on above: Order Comment: BMP G OES TO THE REST GOES TO DR VAZQUEZ Performed By: #### L 509.1000, L501.5200, L501.9520, L506.1000, L503.6550, L500.4050, L503.6150, L300.3900, L501.2300, L500.4100, L503.0105, L100.0100, L100.9950 #### [facility] [address] [facility] [place], [address] Comprehensive Metabolic Prof [facility] 06-12-2024 Albumin [Mass/Vol] 3.7 g/dL Normal 3.2-5.0 [facility] Comment on above: Order Comment: Order Date: 06/12/24 Order Info: 0667-1 - BMPBMP GOES TO THE REST GOES TO DR VAZQUEZ Performed By: #### L 509.1000, L501.5200, L501.9520, L506.1000, L503.6550, L500.4050, L503.6150, L300.3900, L501.2300, L500.4100, L503.0105, L100.0100, L100.9950 #### [facility] [address] [place], [place], [id number] Albumin/Globulin [Mass ratio] 1.3 {ratio} Normal 0.9-2.4 [facility] Comment on above: Order Comment: Order Date: 06/12/24 Order Info: 0667-1 - BMPBMP GOES TO THE REST GOES TO DR VAZQUEZ Performed By: #### L 509.1000, L501.5200, L501.9520, L506.1000, L503.6550, L500.4050, L503.6150, L300.3900, L501.2300, L500.4100, L503.0105, L100.0100, L100.9950 #### [facility] [address] [place], [place], [phone] ([phone]) ALK P 71 U/L Normal 45-117 [facility] Comment on above: Order Comment: Order Date: 06/12/24 Order Info: 0667-1 - BMPBMP GOES TO THE REST GOES TO DR VAZQUEZ Performed By: #### L 509.1000, L501.5200, L501.9520, L506.1000, L503.6550, L500.4050, L503.6150, L300.3900, L501.2300, L500.4100, L503.0105, L100.0100, L100.9950 #### [facility] [address] [place], [place], [phone] ALT [Catalytic activity/Vol] 34 U/L Normal 13-56 [facility] Comment on above: Order Comment: Order Date: 06/12/24 Order Info: 0667-1 - BMPBMP GOES TO THE REST GOES TO DR VAZQUEZ Performed By: #### L 509.1000, L501.5200, L501.9520, L506.1000, L503.6550, L500.4050, L503.6150, L300.3900, L501.2300, L500.4100, L503.0105, L100.0100, L100.9950 #### [facility] [address] [place], [place], [phone] AST [Catalytic activity/Vol] 37 U/L Normal 15-37 [facility] Comment on above: Order Comment: Order Date: 06/12/24 Order Info: 0667-1 - BMPBMP GOES TO THE REST GOES TO DR VAZQUEZ Performed By: #### L 509.1000, L501.5200, L501.9520, L506.1000, L503.6550, L500.4050, L503.6150, L300.3900, L501.2300, L500.4100, L503.0105, L100.0100, L100.9950 #### [facility] [address] [place], [place], [phone] Bilirubin [Mass/Vol] 0.40 mg/dL Normal 0.20-1.[address] [facility] Comment on above: Order Comment: Order Date: 06/12/24 Order Info: 0667-1 - BMPBMP GOES TO THE REST GOES TO DR VAZQUEZ Result Comment: For patients on eltrombopag therapy, use of Dimension [place] TBIL is not recommended. Performed By: #### L 509.1000, L501.5200, L501.9520, L506.1000, L503.6550, L500.4050, L503.6150, L300.3900, L501.2300, L500.4100, L503.0105, L100.0100, L100.9950 #### [facility] [address] [place], [address] BUN/CRE 18.2 RATIO Normal 10-20 [facility] Comment on above: Order Comment: Order Date: 06/12/24 Order Info: 0667-1 - BMPBMP GOES TO THE REST GOES TO DR VAZQUEZ Performed By: #### L 509.1000, L501.5200, L501.9520, L506.1000, L503.6550, L500.4050, L503.6150, L300.3900, L501.2300, L500.4100, L503.0105, L100.0100, L100.9950 #### [facility] [address] [place], [place], [phone] ([phone]) CA,Total 9.5 mg/dL Normal 8.5-10.1 [facility] Comment on above: Order Comment: Order Date: 06/12/24 Order Info: 0667-1 - BMPBMP GOES TO THE REST GOES TO DR VAZQUEZ Performed By: #### L 509.1000, L501.5200, L501.9520, L506.1000, L503.6550, L500.4050, L503.6150, L300.3900, L501.2300, L500.4100, L503.0105, L100.0100, L100.9950 #### [facility] [address] [place], [place], [phone] ([phone]) Chloride [Moles/Vol] 102 mmol/L Normal 98-[address] [facility] Comment on above: Order Comment: Order Date: 06/12/24 Order Info: 0667-1 - BMPBMP GOES TO THE REST GOES TO DR VAZQUEZ Performed By: #### L 509.1000, L501.5200, L501.9520, L506.1000, L503.6550, L500.4050, L503.6150, L300.3900, L501.2300, L500.4100, L503.0105, L100.0100, L100.9950 #### [facility] [address] [place], [place], [phone]) CO2 [Moles/Vol] 31.0 mmol/L Normal 21.0-32.0 [facility] Comment on above: Order Comment: Order Date: 06/12/24 Order Info: 0667-1 - BMPBMP GOES TO THE REST GOES TO DR VAZQUEZ Performed By: #### L 509.1000, L501.5200, L501.9520, L506.1000, L503.6550, L500.4050, L503.6150, L300.3900, L501.2300, L500.4100, L503.0105, L100.0100, L100.9950 #### [facility] [address] [facility] [place], [place], [phone] Creatinine [Mass/Vol] 0.82 mg/dL Normal 0.55-1.02 [facility] Comment on above: Order Comment: Order Date: 06/12/24 Order Info: 0667-1 - BMPBMP GOES TO THE REST GOES TO DR VAZQUEZ Result Comment: The validity of the calculated GFR GFRAA in patients over 70 years has not been determined. Clinical correlation is essential. Performed By: #### L 509.1000, L501.5200, L501.9520, L506.1000, L503.6550, L500.4050, L503.6150, L300.3900, L501.2300, L500.4100, L503.0105, L100.0100, L100.9950 #### [facility] [address] [facility] [place], [place], [phone]) EST GFR - AA 86 mL/min Normal >60 [facility] Comment on above: Order Comment: Order Date: 06/12/24 Order Info: 0667-1 - BMPBMP GOES TO THE REST GOES TO DR VAZQUEZ Result Comment: Afri can Qatari GFR Calc Performed By: #### L 509.1000, L501.5200, L501.9520, L506.1000, L503.6550, L500.4050, L503.6150, L300.3900, L501.2300, L500.4100, L503.0105, L100.0100, L100.9950 #### [facility] [address] [facility] [place], [place], [phone] GAP 4 Low 5-15 [facility] Comment on above: Order Comment: Order Date: 06/12/24 Order Info: 0667-1 - BMPBMP GOES TO THE REST GOES TO DR VAZQUEZ Performed By: #### L 509.1000, L501.5200, L501.9520, L506.1000, L503.6550, L500.4050, L503.6150, L300.3900, L501.2300, L500.4100, L503.0105, L100.0100, L100.9950 #### [facility] [address] [facility] [place], [place], [phone] GFR/1.73 sq M.predicted among non-blacks MDRD (S/P/Bld) [Vol rate/Area] 71 mL/min/{1.73_m2} Normal >60 [facility] Comment on above: Order Comment: Order Date: 06/12/24 Order Info: 0667- - BMPBMP GOES TO THE REST GOES TO DR VAZQUEZ Result Comment: Non- GFR Calc Performed By: #### L 509.1000, L501.5200, L501.9520, L506.1000, L503.6550, L500.4050, L503.6150, L300.3900, L501.2300, L500.4100, L503.0105, L100.0100, L100.9950 #### [facility] [address] [place], [address] Globulin (S) [Mass/Vol] 2.9 g/dL Normal 2.2-4.2 [facility] Comment on above: Order Comment: Order Date: 06/12/24 Order Info: 0667-1 - BMPBMP GOES TO THE REST GOES TO DR VAZQUEZ Performed By: #### L 509.1000, L501.5200, L501.9520, L506.1000, L503.6550, L500.4050, L503.6150, L300.3900, L501.2300, L500.4100, L503.0105, L100.0100, L100.9950 #### [facility] [address] [place], [place], [phone] Glucose [Mass/Vol] 98 mg/dL Normal 74-106 [facility] Comment on above: Order Comment: Order Date: 06/12/24 Order Info: 0667-1 - BMPBM GOES TO THE REST GOES TO DR VAZQUEZ Performed By: #### L 509.1000, L501.5200, L501.9520, L506.1000, L503.6550, L500.4050, L503.6150, L300.3900, L501.2300, L500.4100, L503.0105, L100.0100, L100.9950 #### [facility] [address] [place], [place], [phone] Potassium [Moles/Vol] 4.2 mmol/L Normal 3.5-5.1 [facility] Comment on above: Order Comment: Order Date: 06/12/24 Order Info: 0667-1 - BMPBMP GOES TO THE REST GOES TO DR VAZQUEZ Performed By: #### L 509.1000, L501.5200, L501.9520, L506.1000, L503.6550, L500.4050, L503.6150, L300.3900, L501.2300, L500.4100, L503.0105, L100.0100, L100.9950 #### [facility] [address] [place], [place], [phone] ([phone]) Sodium [Moles/Vol] 138 mmol/L Normal 136-145 [facility] Comment on above: Order Comment: Order Date: 06/12/24 Order Info: 0667-1 - BMPBMP GOES TO THE REST GOES TO DR VAZQUEZ Performed By: #### L 509.1000, L501.5200, L501.9520, L506.1000, L503.6550, L500.4050, L503.6150, L300.3900, L501.2300, L500.4100, L503.0105, L100.0100, L100.9950 #### [facility] [address] [place], [address] ([phone]) T PROT 6.6 g/dL Normal 6.4-8.2 [facility] Comment on above: Order Comment: Order Date: 06/12/24 Order Info: 0667-1 - BMPBMP GOES TO THE REST GOES TO DR VAZQUEZ Performed By: #### L 509.1000, L501.5200, L501.9520, L506.1000, L503.6550, L500.4050, L503.6150, L300.3900, L501.2300, L500.4100, L503.0105, L100.0100, L100.9950 #### [facility] [address] [place], [address] (698) Urea nitrogen [Mass/Vol] 15 mg/dL Normal 7-18 [facility] [facility] Comment on above: Order Comment: Order Date: 06/12/24 Order Info: 0667-1 - BMPBMP GOES TO THE REST GOES TO DR VAZQUEZ Performed By: #### L 509.1000, L501.5200, L501.9520, L506.1000, L503.6550, L500.4050, L503.6150, L300.3900, L501.2300, L500.4100, L503.0105, L100.0100, L100.9950 #### [facility] [address] [place], [place], [id number] [phone] Ferritinon 06-12-2024 Ferritin [Mass/Vol] 23 ng/mL Normal 8-[address] [facility] Comment on above: Order Comment: Order Date: 06/12/24Order Info: 0667-1 - BMPBMP GOES TO DR.WYNESKITHE FERNANDES GOES TO DR VAZQUEZ Performed By: #### L 501.2450, L100.0100, L500.4050, L501.4021 #### [facility] [address] [place], [address] Ironon 06-12-2024 Iron [Mass/Vol] 36 ug/dL Low 50-170 [facility] Comment on above: Order Comment: Order Date: 06/12/24Order Info: 666-08 - BMPBMP GOES TO REST GOES TO DR VAZQUEZ Performed By: #### L 501.2450, L100.0100, L500.4050, L501.4021 #### [facility] [address] [place], [address] L501.2276on 06-12-2024 Ionized Calcium 4.87 mg/dL Normal 4.36-5.20 [facility] Comment on above: Performed By: #### L 499.0043 #### [facility] [address] [place], [address] Lipid Profileon 06-12-2024 Cholesterol [Mass/Vol] 143 mg/dL Normal 200 [facility] Comment on above: Order Comment: Order Date: 06/12/24Order Info: 666-08 - BMPBMP GOES TO DR.WYNESKITHE FERNANDES GOES TO DR VAZQUEZ Result Comment: <200 mg/dL Desirable 200-240 mg/dL Borderline >240 mg/dL High Risk Performed By: #### L 501.2450, L100.0100, L500.4050, L501.4021 #### [facility] [address] [place], [address] Cholesterol in HDL [Mass/Vol] 68 mg/dL Normal [facility] Comment on above: Order Comment: Order Date: 06/12/24Order Info: 666-08 - BMPBMP GOES TO DR.WYNESKITHE FERNANDES GOES TO DR VAZQUEZ Result Comment: The drugs N-Acetylcysteine and Metamizole may falsely depress this assay. Reference Range HDL <40 mg/dL Low HDL Cholesterol HDL >or= 60 mg/dL High HDL Cholesterol Performed By: #### L 501.2450, L100.0100, L500.4050, L501.4021 #### [facility] [address] [place], [address] Cholesterol in LDL [Mass/Vol] 43 mg/dL Normal 0-130 [facility] Comment on above: Order Comment: Order Date: 06/12/24Order Info: 0667-1 - BMPBMP GOES TO DR.WYNESKITHE FERNANDES GOES TO DR VAZQUEZ Performed By: #### L 501.2450, L100.0100, L500.4050, L501.4021 #### [facility] [address] [place], [address] Cholesterol in VLDL [Mass/Vol] 32 mg/dL Normal 5-40 [facility] Comment on above: Order Comment: Order Date: 06/12/24Order Info: 0667-1 - BMPBMP GOES TO REST GOES TO DR VAZQUEZ Performed By: #### L 501.2450, L100.0100, L500.4050, L501.4021 #### [facility] [address] [place], [address] Triglyceride [Mass/Vol] 161 mg/dL Normal [facility] Comment on above: Order Comment: Order Date: 06/12/24Order Info: 0667-1 - BMPBMP GOES TO DR.WYNESKITHE FERNANDES GOES TO DR VAZQUEZ Result Comment: The drugs N-Acetylcysteine and Metamizole may falsely depress this assay. Serum Triglycerides Reference Interval Normal <150 mg/dL Borderline high 150 - 199 mg/dL High 200 - 499 mg/dL Very High > or = 500 mg/dL Performed By: #### L 501.2450, L100.0100, L500.4050, L501.4021 #### [facility] [address] [place], [address] Magnesiumon 10-24-2024 Magnesium [Mass/Vol] 2.0 mg/dL Normal 1.6-2.[address] [facility] Comment on above: Order Comment: Order Date: 06/12/24Order Info: 0667-1 - BMPBMP GOES TO DR.WYNESKITHE FERNANDES GOES TO DR VAZQUEZ Performed By: #### L 501.2450, L100.0100, L500.4050, L501.4021 #### [facility] [address] [place], [address] PTHINon 06-12-2024 PTH 23.0 pg/mL Normal 18.4-80.1 [facility] Comment on above: Performed By: #### L 509.1000, L501.5200, L501.9520, L506.1000, L503.6550, L500.4050, L503.6150, L300.3900, L501.2300, L500.4100, L503.0105, L100.0100, L100.9950 #### [facility] [address] [place], [address] Phosphoruson 06-12-2024 Phosphate [Mass/Vol] 4.9 mg/dL Normal 2.5-4.[address] [facility] Comment on above: Order Comment: Order Date: 06/12/24Order Info: 0667-1 - BMPBMP GOES TO DR.WYNESKITHE FERNANDES GOES TO DR VAZQUEZ Performed By: #### L 501.2450, L100.0100, L500.4050, L501.4021 #### [facility] [address] [place], [address] Prothrombin Time w/INRon INR Coag (PPP) [Relative time] 1.6 {INR} Normal [facility] Comment on above: Order Comment: BMP G OES TO DR.WYNESKITHE FERNANDES GOES TO DR VAZQUEZ Performed By: #### L 501.2450, L100.0100, L500.4050, L501.4021 #### [facility] [address] [place], [address] PT Coag (PPP) [Time] 18.5 s High 11.7-14.[address] [facility] Comment on above: Order Comment: BMP G OES TO REST GOES TO DR VAZQUEZ Performed By: #### L 501.2450, L100.0100, L500.4050, L501.4021 #### [facility] [address] [place], [address] Retic Panelon 06-12-2024 IM RET FRACTION 7.00 Normal 3.00-15.90 [facility] Comment on above: Order Comment: BMP G OES TO THE REST GOES TO DR VAZQUEZ Performed By: #### L 509.1000, L501.5200, L501.9520, L506.1000, L503.6550, L500.4050, L503.6150, L300.3900, L501.2300, L500.4100, L503.0105, L100.0100, L100.9950 #### [facility] [address] [place], [place], [address] RET-HE 32.8 pg Normal 30-35 [facility] Comment on above: Order Comment: BMP G OES TO THE REST GOES TO DR VAZQUEZ Performed By: #### L 509.1000, L501.5200, L501.9520, L506.1000, L503.6550, L500.4050, L503.6150, L300.3900, L501.2300, L500.4100, L503.0105, L100.0100, L100.9950 #### [facility] [address] [place], [address] Retic Count 1.58 High 0.5-1.5 [facility] Comment on above: Order Comment: BMP G OES TO THE REST GOES TO DR VAZQUEZ Performed By: #### L 509.1000, L501.5200, L501.9520, L506.1000, L503.6550, L500.4050, L503.6150, L300.3900, L501.2300, L500.4100, L503.0105, L100.0100, L100.9950 #### [facility] [address] [place], [address] Thyroid Stim Hormone (TSH)on 06-12-2024 TSH 1.440 uIU/mL Normal 0.358-3.74 0 [facility] Comment on above: Order Comment: Order Date: 06/12/24Order Info: 0667-1 - BMPBMP GOES TO DR.WYNESKITHE FERNANDES GOES TO DR VAZQUEZ Performed By: #### L 501.2450, L100.0100, L500.4050, L501.4021 #### [facility] [address] [place], [address] Vitamin B12on 06-12-2024 Cobalamin (Vitamin B12) [Mass/Vol] 1840 pg/mL High 211-911 [facility] Comment on above: Order Comment: BMP G OES TO DR.WYNESKITHE FERNANDES GOES TO DR VAZQUEZ Performed By: #### L 501.2450, L100.0100, L500.4050, L501.4021 #### [facility] [address] [place], [address] Vitamin D,25 Hydroxyon 06-12 Vitamin D 25-OH 71.2 ng/mL Normal [facility] Comment on above: Order Comment: BMP G OES TO DR.WYNESKITHE FERNANDES GOES TO DR VAZQUEZ Result Comment: Elaine min D 25(OH) Status Range Deficiency <20 ng/mL (50nmol/L) Insufficiency 20 - 30 ng/mL (50 - 75 nmol/L) Sufficiency 30 - 100 ng/mL (75 - 250 nmol/L) Toxicity >100 ng/mL (>250 nmol/L) Performed By: #### L 501.2450, L100.0100, L500.4050, L501.4021 #### [facility] [place], [address] PT/INR DAILY PATIENT ON COUM ADINon 06-10-2024 INR Coag (PPP) [Relative time] 1.6 {INR} High 0.8 - 1.2 [facility] Comment on above: Result Comment: T [...] MECHANICAL HEART VALVES Performed By: #### 2 60921 #### [facility],[address] [place] [address] PT-COUMADIN 18.2 sec High 9.3 - 14.1 [facility] Comment on above: Performed By: #### 2 77843 #### [facility],[address] [place] [address] BMP with eGFRon 06-09-2024 AGE 78 years Normal [facility] Comment on above: Performed By: #### 2 38825 #### [facility],[address] [place] [address] Anion gap [Moles/Vol] 12 mmol/L Normal - [facility] Comment on above: Performed By: #### 2 98933 #### [facility],[address] [place] [address] 38240 BMP with eGFR Normal [facility] Comment on above: Result Comment: BASI C METABOLIC PANEL Performed By: #### 2 90633 #### [facility],[address] [place] [address]131 Calcium [Mass/Vol] 8.8 mg/dL Normal 8.5 - 10.1 [facility] Comment on above: Performed By: #### 2 14842 #### [facility],[address] [place] [address]192 Chloride [Moles/Vol] 107 mmol/L Normal 98 - 107 [facility] Comment on above: Performed By: #### 2 52521 #### [facility],[address] [place] [address] 14083 CO2 [Moles/Vol] 27.8 mmol/L Normal 21.0 - 32.0 [facility] Comment on above: Performed By: #### 2 93335 #### [facility],[address] [place] [address] 90066 Creatinine [Mass/Vol] 0.72 mg/dL Normal 0.55 - 1.02 [facility] Comment on above: Performed By: #### 2 41701 #### [facility],[address] [place], [place] [address] GFR/1.73 sq M.predicted among non-blacks MDRD (S/P/Bld) [Vol rate/Area] mL/min/{1.73_m2} Normal 60 - 999 [facility] Comment on above: Performed By: #### 2 07562 #### [facility],[address] [place] [address] Result Comment: ACCO RDING TO THE NATIONAL KIDNEY DISEASE EDUCATION PROGRAM(NKDE), A NORMAL eGFR IS A VALUE GREATER THAN OR EQUAL TO 60 ML/MIN/1.73 SQ METERS. CHRONIC KIDNEY DISEASE: <60mL/MIN/1.73 SQ METERS KIDNEY FAILURE: <15mL/MIN/1.73 SQ METERS THIS TEST SHOULD ONLY BE USED FOR PATIENTS 18 YEARS OF AGE AND OLDER. Glucose [Mass/Vol] 92 mg/dL Normal 74 - 106 [facility] Comment on above: Performed By: #### 2 32669 #### [facility],[address] [place] [address]25 Potassium [Moles/Vol] 4.5 mmol/L Normal 3.5 - 5.1 [facility] Comment on above: Performed By: #### 2 24282 #### [facility],[address] [place] [address] 85870 Sodium [Moles/Vol] 142 mmol/L Normal 136 - 145 [facility] Comment on above: Performed By: #### 2 74533 #### [facility],[address] [place] [address] 36263 Urea nitrogen [Mass/Vol] 8 mg/dL Normal 7 - 18 [facility] Comment on above: Performed By: #### 2 66403 #### [facility],[address] [place] [address]15 MR CERVICAL SP WO CONTRASTon 06-09-2024 MR CERVICAL SP WO CONTRAST [address] [address] Patient: SINDY SWEENEY Phone#: : 1945 Age: 78 Gender: F Pt. Type: Out Account: [id number] Location: [facility] Ordering: DR. MUSTAPHA COLLINS Exam Date: 06/09/2024/11:56 Family Phys: LITZY VAZQUEZ Charge Code: 627690 Physician: Mcduffie Order #: [id number] Dose#: PROCEDURE: MRI CERVICAL SPINE WITHOUT CONTRAST [...] 78 Gender: F Pt. Type: Out Account: [id number] Location: [facility] Ordering: DR. MUSTAPHA COLLINS Exam Date: 06/09/2024/11:56 Family Phys: LITZY VAZQUEZ Charge Code: 962662 Physician: Mcduffie Order #: [id number] Dose#: Approved by: Arlet Pérez MD on 06/09/2024 at 13:17 Normal [facility] PT/INR DAILY PATIENT ON COUM ADINon 06-09-2024 INR Coag (PPP) [Relative time] 2.3 {INR} High 0.8 - 1.2 [facility] Comment on above: Result Comment: T [...] MECHANICAL HEART VALVES Performed By: #### 2 25357 #### [facility],[address] [place] [address] PT-COUMADIN 25.1 sec High 9.3 - 14.1 [facility] Comment on above: Performed By: #### 2 13241 #### [facility],[address] [place] [address] 47678 BMP with eGFRon 06-08-2024 AGE 78 years Normal [facility] Comment on above: Performed By: #### 2 12589 #### [facility],[address] [place] [address] 15899 Anion gap [Moles/Vol] 11 mmol/L Normal [facility] Comment on above: Performed By: #### 2 33853 #### [facility],[address] [place] [address] 39412 BMP with eGFR Normal [facility] Comment on above: Result Comment: BASI C METABOLIC PANEL Performed By: #### 2 96468 #### [facility],[address] [place] [address]22 Calcium [Mass/Vol] 8.2 mg/dL Low 8.5 - 10.1 [facility] Comment on above: Performed By: #### 2 75802 #### [facility],[address] [place] [address] 78430 Chloride [Moles/Vol] 95 mmol/L Low 98 - 107 [facility] Comment on above: Performed By: #### 2 32910 #### [facility],[address] [place] [address] 82973 CO2 [Moles/Vol] 24.3 mmol/L Normal 21.0 - 32.0 [facility] Comment on above: Performed By: #### 2 68320 #### [facility],[address] [place] [address] 74509 Creatinine [Mass/Vol] 0.71 mg/dL Normal 0.55 - 1.02 [facility] Comment on above: Performed By: #### 2 28916 #### [facility],[address] [place] [address] 77137 GFR/1.73 sq M.predicted among non-blacks MDRD (S/P/Bld) [Vol rate/Area] mL/min/{1.73_m2} Normal 60 - 999 [facility] Comment on above: Performed By: #### 2 16775 #### [facility],[address] [place] [address] 19107 Result Comment: ACCO RDING TO THE NATIONAL KIDNEY DISEASE EDUCATION PROGRAM(NKDE), A NORMAL eGFR IS A VALUE GREATER THAN OR EQUAL TO 60 ML/MIN/1.73 SQ METERS. CHRONIC KIDNEY DISEASE: <60mL/MIN/1.73 SQ METERS KIDNEY FAILURE: <15mL/MIN/1.73 SQ METERS THIS TEST SHOULD ONLY BE USED FOR PATIENTS 18 YEARS OF AGE AND OLDER. Glucose [Mass/Vol] 93 mg/dL Normal 74 - 106 [facility] Comment on above: Performed By: #### 2 13170 #### [facility],[address] [place] [address] 59143 Potassium [Moles/Vol] 4.0 mmol/L Normal 3.5 - 5.1 [facility] Comment on above: Performed By: #### 2 04156 #### [facility],[address] [place] [address] 03872 Sodium [Moles/Vol] 126 mmol/L Low 136 - 145 [facility] Comment on above: Performed By: #### 2 86261 #### [facility],[address] [place] [address] 50918 Urea nitrogen [Mass/Vol] 6 mg/dL Low 7 - 18 [facility] Comment on above: Performed By: #### 2 49378 #### [facility],[address] [place] [address] 10777 CBC + DIFFon 06-08-2024 Baso # 0.02 x10EE3/UL Normal 0.00 - 0.10 [facility] Comment on above: Performed By: #### 2 31142 #### [facility],[address], [place] [address] Basophils/100 WBC (Bld) 0.4 % Normal 0.0 - 2.0 [facility] Comment on above: Performed By: #### 2 03792 #### [facility],[address] [place] [address] CBC + DIFF Normal [facility] Comment on above: Result Comment: CBC- COMPLETE BLOOD COUNT Performed By: #### 2 19204 #### [facility],[address] [place] [address] EO # 0.16 x10EE3/UL Normal 0.00 - 0.50 [facility] Comment on above: Performed By: #### 2 81700 #### [place] [address] Eosinophils/100 WBC (Bld) 3.0 % Normal 0.0 - 7.0 [facility] Comment on above: Performed By: #### 2 90403 #### [facility],[address] [place] [address] Erythrocyte distribution width (RBC) [Ratio] 12.9 % Normal 12.0 - 15.6 [facility] Comment on above: Performed By: #### 2 45626 #### [facility],[address] [place] [address] Hematocrit (Bld) [Volume fraction] 38.3 % Normal 34.0 - 46.0 [facility] Comment on above: Performed By: #### 2 40725 #### [facility],[address] [place] [address] Hemoglobin (Bld) [Mass/Vol] 12.7 g/dL Normal 12.0 - 16.0 [facility] Comment on above: Performed By: #### 2 84696 #### [facility],[address] [place] [address] Lymph # 0.79 x10EE3/UL Low 0.80 - 2.80 [facility] Comment on above: Performed By: #### 2 04835 #### [facility],[address] [place] [address] Lymphocytes/100 WBC (Bld) 14.4 % Low 20.0 - 45.0 [facility] Comment on above: Performed By: #### 2 24748 #### [facility],[address] [place] [address] MANUAL DIFF N/A Normal [facility] Comment on above: Performed By: #### 2 15615 #### [facility],[address] [place] [address] MCH (RBC) [Entitic mass] 31 pg Normal 27 - 33 [facility] Comment on above: Performed By: #### 2 04343 #### [place] [address] MCHC 33 X10 3 Normal 32 - 36 [facility] Comment on above: Performed By: #### 2 42850 #### [place] [address] MCV (RBC) [Entitic vol] 95 fL Normal 80 - 99 [facility] Comment on above: Performed By: #### 2 85455 #### [facility],[address] [place] [address] Lewis # 0.46 x10EE3/UL Normal 0.20 - 1.00 [facility] Comment on above: Performed By: #### 2 02256 #### [place] [address] MONOS % 8.4 % Normal 0.0 - 10.0 [facility] Comment on above: Performed By: #### 2 35085 #### [facility],[address] [place] [address], [place] [address] Morphology Kevin (Bld) [Interp] N/A Normal [facility] Comment on above: Performed By: #### 2 93344 #### [facility],[address] [place] [address] 46188 Neut # 4.05 x10EE3/UL Normal 1.50 - 7.10 [facility] Comment on above: Performed By: #### 2 36673 #### [address] [address] Neutrophils/100 WBC (Bld) 73.8 % Normal 46.0 - 76.0 [facility] Comment on above: Performed By: #### 2 02584 #### [address] [address] PLATELET 197 x10EE3/UL Normal 150 - 450 [facility] Comment on above: Performed By: #### 2 19519 #### [place] [address] Platelet mean volume (Bld) [Entitic vol] 6.8 fL Normal 6.6 - 10.5 [facility] Comment on above: Result Comment: AUTO MATED DIFFERENTIAL Performed By: #### 2 42428 #### [address] [address] RBC 4.03 x 10EE6/UL Low 4.10 - 5.30 [facility] Comment on above: Performed By: #### 2 96804 #### [address] [address] WBC 5.5 x 10EE3/UL Normal 4.5 - 10.8 [facility] Comment on above: Performed By: #### 2 85667 #### [address] [address] ED FACILITY CODING SUMMARY 06-08-2024 ED FACILITY CODING SUMMARY Facility Coding [place] [address] [id number] 06/07/2024 Patient: SINDY SWEENEY Sex: Female : 1945 Age: 78y Providers: Gibson Thrasher D.O. DIAGNOSTIC WORKUP Chief Complaint COUGH, SORE THROAT, FEVER, CHILLS and MUSCLE ACHES. -- Gibson Thrasher D.O. Principal Diagnosis Severe hyponatremia -- Gibson Thrasher D.O. ICD-10 Codes E87.1: Hypo-osmolality and hyponatremia PROCEDURES Procedures from Providers: EKG (CPT: 92905) -- Gibson Thrasher D.O. Procedures from Nurses/Facility: IV Hydration (CPT: 48272 X3) IV Push Fentanyl IVP (CPT: 02666) IV Push KetorOLAC (Toradol) IVP (CPT: 25005) IV Push Zofran IVP (CPT: 77332) SUPPLIES 1 of 2 Facility Coding [facility] [address]-30 This is a partial abstract of information documented in the full record. Instructor Of Nursing must use independent judgment in selecting codes. CPT copyright 2022 [employer]. All Rights Reserved. 2 of 2 Normal [facility] ED MED ADMINISTRATION DETAIL on 06-08-2024 ED MED ADMINISTRATION DETAIL Sewer Repairer Medication Administration Record [address] [address] [id number] 06/07/2024 Patient: SINDY SWEENEY Sex: Female : 1945 Age: 78y MEASUREMENTS: Wt: 93.0 kg, Ht/Pasha: 65.0 in, BMI: 34.11 ALLERGIES: latex Medication Ordered Medication Administration Date/Time IV NS 0.9 % 1000 17:06/07 IV NS 0.9 % 1000 mL started [...] given via Site# 1. - 17:06 Maykel Gallardo (NOW x1) Teresa Harkins 17:05 06/07/2024 Maykel Harkins R.N. Scanned KetorOLAC 17:42 06/07 KetorOLAC (Toradol) IVP 15 mg given via Site# 1. Given (Toradol) IVP 15 mg Allergies verified and confirmed 5 rights. IV patency established. IV 17:42 06/07/2024 (NOW x1) site checked: no pain, redness, or swelling. IV flushed thoroughly Loyd Contreras pre-medication administration. IVP given by EMT-P. Information Esparza-PJani reviewed with patient. Vitals: 17:35 06/07/2024 BP: 171/85 MAP: Scanned 111 mmHg. HR: 69 bpm. Medication Wastage: 15 mg wasted. - 17:43 Isaias Gordon-PJani 1 of 2 Sewer Repairer Medication Ordered Medication Administration Date/Time IV NS [...] Harkins R.N. Scanned 2 of 2 Normal [facility] ED NURSES CLINICAL NOTEon ED NURSES CLINICAL NOTE Nurse Narrative Nurse Clinical [address] [place] [address] [id number] 06/07/2024 Patient: SINDY SWEENEY Sex: Female : 1945 Age: 78y Disposition: Admit to [facility] Disposition Decision Time: 19:07 06/07/2024 Departure [...] 16:21 06/07/24 EDT Kaitlyn [place] R.N. Problems: "thick blood" -- 16:29 06/07/24 EDT Kaitlyn [place] R.N. [...] disease exposure. ABUSE ASSESSMENT: The patient answered "no" to the question(s) "Do you feel safe in your home?" and "Are you afraid to go home?". SELF HARM ASSESSMENT: Self harm assessment was performed. The patient answered "no" to the question(s) "Have you recently felt down, depressed, or hopeless?" and "Do you have thoughts of harming or killing yourself?". 2 of 4 Nurse Narrative FALL RISK [...] patient has advanced directive. -- 16:24 06/07/24 EDT Kaitlyn [place] R.N. PHYSICAL ASSESSMENT 16:45 06/07/24. [...] mg gi (more content not included)... Normal [facility] ED ORDER SHEET (CPOE ONLY)on 06-08-2024 ED ORDER SHEET (CPOE ONLY) Order Sheet Order Sheet [place] [address] [place] [address] [id number] 06/07/2024 Patient: SINDY SWEENEY Sex: Female : 1945 Age: 78y MEASUREMENTS: Wt: 93.0 kg, Ht/Pasha: 65.0 in, BMI: 34.11 ALLERGIES: latex MEDICATION/IV/DRIP/FLUID ORDERS Order Description Priority Entered Acknowledged Completed IV NS 0.9 %1000 mL at 500 16:31 06/07/2024 17:02 17:05 mL/hr (NOW x1) Gibson Thrasher, 06/07/2024 06/07/2024 RexOMyakel Cohn, R.N. R.N. Zofran IVP4 mg (NOW x1) 16:31 06/07/2024 17:02 17:06 Gibson Thrasher, 06/07/2024 06/07/2024 Maykel Marcano, Jazzmine.N. R.N. KetorOLAC (Toradol) IVP15 mg 17:39 06/07/2024 17:39 17:43 (NOW x1) Gibson Thrasher, 06/07/2024 06/07/2024 Loyd Barton, RonakMJaniT.-P. E.M.T.-P. Reason for ordering with alerts: Benefits outweigh risks --17:39 06/07/2024 Gibson Thrasher D.O. IV NS 0.9 %1000 mL at 100 17:56 06/07/2024 17:58 18:27 mL/hr (NOW x1) Gibson Thrasher, 06/07/2024 06/07/2024 Maykel Marcano, 1 of 4 Order Sheet R.N. R.N. Reason for ordering with alerts: Benefits outweigh risks --17:56 06/07/2024 Gibson Thrasher D.O. Fentanyl IVP50 mcg (NOW x1) 18:37 06/07/2024 18:49 Gibson Thrasher, 06/07/2024 Alysa Harkins R.N. Reason for ordering with alerts: Benefits outweigh risks --18:37 06/07/2024 Gibson Thrasher D.O. LAB ORDERS Order Description Priority Entered Acknowledged Collected Completed CBC w Diff Stat Stat 16:31 06/07/2024 16:50 06/07/2024 Maykel Carlton D.O. R.N. Lactate, Serum Stat Stat 16:31 06/07/2024 16:50 06/07/2024 Maykel Carlton D.O. RDelmer D-Dimer Stat Stat 16:31 06/07/2024 16:50 06/07/2024 Maykel Carlton D.O. R.N. CMP Stat Stat 16:31 06/07/2024 16:50 06/07/2024 Maykel Carlton D.O. R.N. Troponin-I (Sched: q3h Stat 16:31 06/07/2024 16:50 06/07/2024 X2); Stat 1 of 2 Maykel Carlton D.O. R.N. 2 of 4 Order Sheet Troponin-I (Sched: q3h Stat 16:31 06/07/2024 X2); Stat 2 of 2 Gibson Thrasher D.O. EKG - ED Stat Stat 16:31 06/07/2024 16:50 06/07/2024 Maykel Carlton D.O. R.Leonor Urinalysis Stat Stat 16:31 06/07/2024 16:50 06/07/2024 Maykel Carlton D.O. RDelmer Rapid COVID (SARS) Stat 16:31 06/07/2024 16:50 [...] 16:31 06/07/2024 16:50 06/07/2024 Maykel Carlton D.O. RJaniN. 3 of 4 Order Sheet [Electronically signed by Gibson Thrasher D.O. (06/08/2024 00:44 EDT)] 4 of 4 Normal [facility] ED PHYS CODING ABST SUMMARYo n 06-08-2024 ED PHYS CODING ABST SUMMARY Coding Summary Coding Summary [place] [address] [place] [address] [id number] 06/07/2024 Patient: SINDY SWEENEY Sex: Female : 1945 Age: 78y ICD-10 Codes E87.1: Hypo-osmolality and hyponatremia CPT Codes EKG (CPT: 58852) This is a partial abstract of information documented in the full record. Instructor Of Nursing must use independent judgment in selecting codes. CPT copyright 2022 [employer]. All Rights Reserved. 1 of 1 [facility] ED PHYSICIAN CLINICAL REPORT on 06-08-2024 ED PHYSICIAN CLINICAL REPORT Narrative Physician Clinical Narrative [place] [address] [facility] [place] [address] [id number] 06/07/2024 Patient: SINDY SWEENEY Sex: Female : 1945 Age: 78y Disposition: Admit to [facility] Disposition Decision Time: 19:07 06/07/2024 Departure [...] 1.50 - 7.10 Final EDT 06/07/2024 17:21 Lewis # 0.57 x10/UL 0.20 - 1.00 Final [...] EDT 06/07/2024 (more content not included)... [facility] ED [facility] BILLon 06-08-2024 ED [facility] [address] [place] [address] [id number] 06/07/2024 Patient: SINDY SWEENEY Sex: Female : 1945 Age: 78y Item Facility Professional Category Description Code Code Quantity Fee Total Nurse/E/M EMERGENCY 279172 1 $0.00 $0.00 DEPARTMENT VISIT HIGH/URGENT SEVERITY (00227-23) Nurse/IV/IM/Infusions Hydration 049971 3 $0.00 $0.00 additional hour (56320) Nurse/IV/IM/Infusions IVP additional 845933 2 $0.00 $0.00 push (36392) Nurse/IV/IM/Infusions IVP initial [id number] 1 $0.00 $0.00 (58227) Grand Total $0.00 Providers Gibson Thrasher D.O. Chief Complaint 1 of 2 [facility] COUGH, SORE THROAT, FEVER, CHILLS and MUSCLE ACHES. Principal Diagnosis Severe hyponatremia ICD-10 Codes E87.1: Hypo-osmolality and hyponatremia 2 of 2 [facility] ED VISIT SUMMARYon ED VISIT SUMMARY Visit Overview Visit Overview [place] [address] [facility] [place] [address] [id number] 06/07/2024 Patient: SINDY SWEENEY Sex: Female : 1945 Age: 78y 06/08/2024 12:44 AM EDT ED Arrival:16:18 06/07/2024 EDT Status: Recent Travel:no Language:eng Adv Directive:Unknown Isolation Status: Ethnicity:N Fall Risk:risk Infectious Disease Exposure:no Measurements:5'5" / 165.1 Self-Harm Status:no risk Sepsis Screen:negative cm 205.0 lb / 93.0 kg Chief Complaint:BODY ACHES, COUGH, FATIGUE, known COVID-19 EXPOSURE, SINUS DRAINAGE, SORE THROAT, (1 weeks), and (Neck pain, anxiety, nasuea) ALLERGIES latex HOME MEDICATIONS albuterol sulfate HFA 90 mcg/actuation aerosol inhaler buspirone 10 mg tablet desmopressin 0.2 mg tablet 1 4 Visit Overview fesoterodine ER 8 mg [...] lock. INTAKE OUTPUT REASSESMENT (most recent) 2 4 Visit Overview 16:45 06/07/24. ( Patient [...] IMPRESSION SEVERE HYPONATREMIA 4 of 4 [facility] PROTHROMBIN TIME AND INRon 1 INR Coag (PPP) [Relative time] 3.0 {INR} High 0.8 - 1.2 [facility] Comment on above: Result Comment: T [...] MECHANICAL HEART VALVES Performed By: #### 2 09689 #### [facility],[address] [place] [address] PROTHROMBIN TIME AND INR [facility] Comment on above: Result Comment: PROT HROMBIN TIME AND INR Performed By: #### 2 33160 #### [facility],[address] [place] [address]20 PT-COUMADIN 33.6 sec High 9.3 - 14.1 [facility] Comment on above: Performed By: #### 2 95147 #### [facility],[address] [place] [address]609 CBC + DIFFon 06-07-2024 Baso # 0.03 x10EE3/UL Normal 0.00 - 0.10 [facility] Comment on above: Performed By: #### 2 66791 #### [facility],[address] [place] [address] 02043 Basophils/100 WBC (Bld) 0.5 % Normal 0.0 - 2.0 [facility] Comment on above: Performed By: #### 2 52600 #### [facility],[address] [place] [address]37 CBC + DIFF [facility] Comment on above: Result Comment: CBC- COMPLETE BLOOD COUNT Performed By: #### 2 44101 #### [facility],[address] [place] [address] 23533 EO # 0.13 x10EE3/UL Normal 0.00 - 0.50 [facility] Comment on above: Performed By: #### 2 90155 #### [facility],[address] [place] [address] 83167 Eosinophils/100 WBC (Bld) 2.0 % Normal 0.0 - 7.0 [facility] Comment on above: Performed By: #### 2 78926 #### [facility],[address] [place] [address] Erythrocyte distribution width (RBC) [Ratio] 12.9 % Normal 12.0 - 15.6 [facility] Comment on above: Performed By: #### 2 90056 #### [facility],[address] [place] [address] Hematocrit (Bld) [Volume fraction] 38.3 % Normal 34.0 - 46.0 [facility] Comment on above: Performed By: #### 2 95245 #### [facility],[address] [place] [address] Hemoglobin (Bld) [Mass/Vol] 13.0 g/dL Normal 12.0 - 16.0 [facility] Comment on above: Performed By: #### 2 27384 #### [facility],[address] [place] [address] Lymph # 0.94 x10EE3/UL Normal 0.80 - 2.80 [facility] Comment on above: Performed By: #### 2 17903 #### [facility],[address] [place] [address] Lymphocytes/100 WBC (Bld) 14.4 % Low 20.0 - 45.0 [facility] Comment on above: Performed By: #### 2 59165 #### [facility],[address] [place], [place] [phone] MANUAL DIFF N/A [facility] Comment on above: Performed By: #### 2 60992 #### [facility],[address] [place], [place] [phone] MCH (RBC) [Entitic mass] 32 pg Normal 27 - 33 [facility] Comment on above: Performed By: #### 2 71098 #### [place] [id number] MCHC 34 X10 3 Normal 32 - 36 [facility] Comment on above: Performed By: #### 2 28539 #### [facility],[address] [place] [address] 31348 MCV (RBC) [Entitic vol] 93 fL Normal 80 - 99 [facility] Comment on above: Performed By: #### 2 78158 #### [facility],[address] [place] [address] 94365 Lewis # 0.57 x10EE3/UL Normal 0.20 - 1.00 [facility] Comment on above: Performed By: #### 2 57103 #### [facility],[address] [place] [address] 70167 MONOS % 8.6 % Normal 0.0 - 10.0 [facility] Comment on above: Performed By: #### 2 35309 #### [facility],[address] [place] [address] 21682 Morphology Kevin (Bld) [Interp] N/A [facility] Comment on above: Performed By: #### 2 09416 #### [facility],[address] [place] [address] 31346 Neut # 4.86 x10EE3/UL Normal 1.50 - 7.10 [facility] Comment on above: Performed By: #### 2 98445 #### [facility],[address] [place] [address] 00648 Neutrophils/100 WBC (Bld) 74.4 % Normal 46.0 - 76.0 [facility] Comment on above: Performed By: #### 2 96527 #### [facility],[address] [place] [address] 62347 PLATELET 254 x10EE3/UL Normal 150 - 450 [facility] Comment on above: Performed By: #### 2 19428 #### [facility],[address] [place] [address] 36691 Platelet mean volume (Bld) [Entitic vol] 7.1 fL Normal 6.6 - 10.5 [facility] Comment on above: Result Comment: AUTO MATED DIFFERENTIAL Performed By: #### 2 03181 #### [facility],[address] [place] [address] 66148 RBC 4.10 x 10EE6/UL Normal 4.10 - 5.30 [facility] Comment on above: Performed By: #### 2 56759 #### [facility],[address] [place] [address] 01615 WBC 6.5 x 10EE3/UL Normal 4.5 - 10.8 [facility] Comment on above: Performed By: #### 2 96240 #### [facility],[address] [place] [address] 89433 CMP with eGFRon 06-07-2024 AGE 78 years [facility] Comment on above: Performed By: #### 2 05201 #### [facility],[address] [place] [address] 34160 Albumin [Mass/Vol] 3.6 g/dL Normal 3.4 - 5.0 [facility] Comment on above: Performed By: #### 2 71108 #### [facility],[address] [place] [address] 80042 Albumin/Globulin [Mass ratio] 1.4 {ratio} Normal 0.9 - 1.6 [facility] Comment on above: Performed By: #### 2 11756 #### [facility],[address] [place] [address] 66748 ALK PHOS 87 U/L Normal 46 - 116 [facility] Comment on above: Performed By: #### 2 19450 #### [facility],[address] [place] [address] 77936 ALT [Catalytic activity/Vol] 17 U/L Normal 16 - 63 [facility] Comment on above: Performed By: #### 2 74553 #### [facility],[address] [place] [address] 85489 Anion gap [Moles/Vol] 12 mmol/L Normal 10 - 20 [facility] Comment on above: Performed By: #### 2 11015 #### [facility],[address] [place], [place] [phone] AST [Catalytic activity/Vol] 21 U/L Normal 13 - 39 [facility] Comment on above: Performed By: #### 2 62755 #### [facility],[address] [place] [place], [place] [phone] B/C RATIO 9 ratio Normal 0 - 30 [facility] Comment on above: Performed By: #### 2 09580 #### [facility],[address] [place] [address] Bilirubin [Mass/Vol] 0.6 mg/dL Normal 0.2 - 1.0 [facility] Comment on above: Performed By: #### 2 75083 #### [facility],[address] [place], [place] [phone] Calcium [Mass/Vol] 8.4 mg/dL Low 8.5 - 10.1 [facility] Comment on above: Performed By: #### 2 59071 #### [facility],[address] [place] [address] 70007 Chloride [Moles/Vol] 87 mmol/L Low 98 - 107 [facility] Comment on above: Performed By: #### 2 22985 #### [facility],[address] [place], [place] [phone] CMP with eGFR [facility] Comment on above: Result Comment: COMP REHENSIVE METABOLIC PANEL Performed By: #### 2 82791 #### [facility],[address] [place] [address] 65223 CO2 [Moles/Vol] 25.8 mmol/L Normal 21.0 - 32.0 [facility] Comment on above: Performed By: #### 2 08091 #### [facility],[address] [place] [address] 12015 Creatinine [Mass/Vol] 0.74 mg/dL Normal 0.55 - 1.02 [facility] Comment on above: Performed By: #### 2 60271 #### [address] [address] GFR/1.73 sq M.predicted among non-blacks MDRD (S/P/Bld) [Vol rate/Area] mL/min/{1.73_m2} Normal 60 - 999 [facility] Comment on above: Performed By: #### 2 19592 #### [facility],[address] [place] [address], [place] [phone] Result Comment: ACCO RDING TO THE NATIONAL KIDNEY DISEASE EDUCATION PROGRAM(NKDE), A NORMAL eGFR IS A VALUE GREATER THAN OR EQUAL TO 60 ML/MIN/1.73 SQ METERS. CHRONIC KIDNEY DISEASE: <60mL/MIN/1.73 SQ METERS KIDNEY FAILURE: <15mL/MIN/1.73 SQ METERS THIS TEST SHOULD ONLY BE USED FOR PATIENTS 18 YEARS OF AGE AND OLDER. Globulin (S) [Mass/Vol] 2.5 g/dL Normal 1.5 - 3.8 [facility] Comment on above: Performed By: #### 2 86917 #### [place] [id number] Glucose [Mass/Vol] 100 mg/dL Normal 74 - 106 [facility] Comment on above: Performed By: #### 2 76363 #### [address] [address] Potassium [Moles/Vol] 4.2 mmol/L Normal 3.5 - 5.1 [facility] Comment on above: Performed By: #### 2 98372 #### [address] [address] Protein [Mass/Vol] 6.1 g/dL Low 6.4 - 8.2 [facility] Comment on above: Performed By: #### 2 01619 #### [facility],[address] [place] [address] Sodium [Moles/Vol] 121 mmol/L Low 136 - 145 [facility] Comment on above: Result Comment: LAYA UM REPEATED Performed By: #### 2 65189 #### [facility],[address] [place] [address] Urea nitrogen [Mass/Vol] 7 mg/dL Normal 7 - 18 [facility] Comment on above: Performed By: #### 2 36035 #### [facility],[address] [place] [address] CORONAVIRUS (SARS) ANTIGEN T ESTon 06-07-2024 EXTERNAL QC DONE? YES [facility] Comment on above: Performed By: #### 2 56512 #### [facility],[address] [place] [address] INTERNAL CONTROL PASS [facility] Comment on above: Performed By: #### 2 26700 #### [facility],[address] [place] [address] SARS ANTIGEN Negative Normal NORMAL: NEGATIVE [facility] Comment on above: Performed By: #### 2 68027 #### [facility],[address] [place] [address] SEND TO ? YES [facility] Comment on above: Result Comment: SARS -CoV-2 THIS TEST IS BEING USED UNDER THE FDA EUA PROCEDURE. THIS ASSAY HAS BEEN VALIDATED AT [facility] FOR USE WITH NASAL AND [...] PUBLIC HEALTH AUTHORITIES. Performed By: #### 2 50528 #### [address] [address] D-DIMER, QUANTITATIVEon 10- D-DIMER QUANT <200 Normal 0 - 230 [facility] Comment on above: Performed By: #### 2 92142 #### [address] [address] D-DIMER, QUANTITATIVE Normal [facility] Comment on above: Result Comment: FELISA T D-DIMER Performed By: #### 2 09306 #### [address] [address] INFLUENZA VIRUS RAPID A/Bon 06-07-2024 INFLUENZA VIRUS RAPID A/B INFLUENZA A NEGATIVE INFLUENZA B NEGATIVE INTERNAL NEG QC PASS INTERNAL POS QC PASS EXTERNAL QC DONE? YES SEND TO IC? YES A NEGATIVE TEST RESULT DOES NOT [...] B IS RARE. IT IS RECOMMENDED THAT "DUAL POSITIVE" RESULTS BE CONFIRMED BY VIRAL CULTURE OR AN FDA-CLEARED INFLUENZA A AND B MOLECULAR ASSAY. INDIVIDUALS WHO HAVE RECEIVED NASALLY ADMINISTERED INFLUENZA A VACCINE MAY TEST POSITIVE IN COMMERCIALLY AVAILABLE INFLUENZA RAPID DIAGNOSTIC TESTS FOR UP TO THREE DAYS. RESULT CRITICAL? NO [facility] Comment on above: Performed By: #### 2 36832 #### [facility],[address] [place] [address] LACTATEon 06-07-2024 Lactate [Moles/Vol] 0.8 mmol/L Normal 0.4 - 2.0 [facility] Comment on above: Performed By: #### 2 46088 #### [facility],[address] [place] [address] MAGNESIUMon 06-07-2024 Magnesium [Mass/Vol] 1.7 mg/dL Low 1.8 - 2.4 [facility] Comment on above: Performed By: #### 2 86644 #### [facility],[address] [place] [address] TROPONINon 06-07-2024 HS TROPONIN 5.5 pg/mL Normal 0.0 - 51.4 [facility] Comment on above: Performed By: #### 2 15421 #### [facility],[address] [place] [address], [place] [phone] Basophil percentageOrdered B y: True Vazquez on 08-09-2023 Chloride [Moles/Vol] 106 mmol/L 98-[address] [facility] Cholesterol [Mass/Vol] 160 mg/dL <200 [facility] Comment on above: <200 mg/dL Desirable 200-240 mg/dL Borderline >240 mg/dL High Risk Glucose [Mass/Vol] 81 mg/dL 74-106 [facility] Potassium [Moles/Vol] 4.0 mmol/L 3.5-5.1 [facility] Sodium [Moles/Vol] 140 mmol/L 136-145 [facility] Triglyceride [Mass/Vol] 133 mg/dL <199 [facility] Comment on above: The drugs N-Acetylcy steine and Metamizole may falsely depress this assay.Serum Triglycerides Reference Interval Normal <150 mg/dL Borderline high 150 - 199 mg/dL High 200 - 499 mg/dL Very High > or = 500 mg/dL WBC (Bld) [#/Vol] 6.8 10*3/uL 4.4-11.0 [facility] Blood erythrocytes count (nu mber/volume)Ordered By: True Vazquez on 08-09-2023 RBC (Bld) [#/Vol] 4.17 10*6/uL 4.2-5.[address] [facility] Blood hemoglobin measurement (mass/volume)Ordered By: True Vazquez on 08-09-2023 Hemoglobin (Bld) [Mass/Vol] 12.9 g/dL 12.0-15.0 [facility] Blood platelet mean volumeOr dered By: True Vazquez on 08-09-2023 Platelet mean volume (Bld) [Entitic vol] 9.6 fL 6.2-12.0 [facility] Determination of erythrocyte mean corpuscular volume (MCV)Ordered By: True Vazquez on 08-09-2023 MCV (RBC) [Entitic vol] 99.0 fL 81-99 [facility] Hematocrit Auto (Bld) [Volum e fraction]Ordered By: True Vazquez on 08-09-2023 Hematocrit (Bld) [Volume fraction] 41.3 % 37-47 [facility] Iron measurement (mass/mass) Ordered By: True Vazquez on 08-09-2023 Iron (Unsp spec) [Mass/Mass] 29 ug/dL 50-170 [facility] Laboratory - Chemistry and C hemistry - challengeOrdered By: True Vazquez on 08-09-2023 CO2 [Moles/Vol] 28.0 mmol/L 21.0-32.0 [facility] Cobalamin (Vitamin B12) [Mass/Vol] 379 pg/mL 211-911 [facility] Urea nitrogen/Creatinine [Mass ratio] 8.1 mg/mg 10-20 [facility] Laboratory - Hematology and Cell countsOrdered By: True Vazquez on 08-09-2023 Erythrocyte distribution width (RBC) [Entitic vol] 49.7 fL 35.1-43.9 [facility] Erythrocyte distribution width (RBC) [Ratio] 13.5 % 11.6-14.6 [facility] MCH (RBC) [Entitic mass] 30.9 pg 27.0-32.0 [facility] MCHC Auto (RBC) [Mass/Vol]Or dered By: True Vazquez on 08-09-2023 MCHC (RBC) [Mass/Vol] 31.2 g/dL 32-36 [facility] No Panel InformationOrdered By: True Vazquez on 08-09-2023 Estimated GFR (MDRD) Amer 81 mL/min >60 [facility] Comment on above: GFR Calc Estimated GFR (MDRD) Non-Af Amer 67 mL/min >60 [facility] Comment on above: Non- GFR Calc Thyroid Stimulating Hormone (TSH) 1.08 uIU/mL 0.358-3.74 [facility] Vitamin D 25-Hydroxy 88.9 ng/mL [facility] Comment on above: Vitamin D 25(OH) Sta tus Range Deficiency <20 ng/mL (50nmol/L) Insufficiency 20 - 30 ng/mL (50 - 75 nmol/L) Sufficiency 30 - 100 ng/mL (75 - 250 nmol/L) Toxicity >100 ng/mL (>250 nmol/L) Platelets bldOrdered By: Long Vazquez on 08-09-2023 Platelets (Bld) [#/Vol] 275 10*3/uL 150-450 [facility] Serum or plasma calcium devin urement (mass/volume)Ordered By: True Vazquez on 08-09-2023 Calcium [Mass/Vol] 8.8 mg/dL 8.5-10.1 [facility] Serum or plasma cholesterol in HDL measurement (mass/volume)Ordered By: True Vazquez on 08-09-2023 Cholesterol in HDL [Mass/Vol] 70 mg/dL >40 [facility] Comment on above: The drugs N-Acetylcy steine and Metamizole may falsely depress this assay. Reference Range HDL <40 mg/dL Low HDL Cholesterol HDL >or= 60 mg/dL High HDL Cholesterol Serum or plasma cholesterol in VLDL measurement (mass/volume)Ordered By: True Vazquez on 08-09-2023 Cholesterol in VLDL [Mass/Vol] 27 mg/dL 5-40 [facility] Serum or plasma creatinine m easurement (mass/volume)Ordered By: True Vazquez on 08-09-2023 Creatinine [Mass/Vol] 0.87 mg/dL 0.55-1.02 [facility] Comment on above: The validity of the calculated GFR & GFRAA in patients over 70 years has not been determined. Clinical correlation is essential. Serum or plasma ferritin valdemar surement (mass/volume)Ordered By: True Vazquez on 08-09-2023 Ferritin [Mass/Vol] 8 ng/mL 8-[address] [facility] Serum or plasma low density lipoprotein (LDL) cholesterol measurement (mass/volume)Ordered By: True Vazquez on 08-09-2023 Cholesterol in LDL [Mass/Vol] 63 mg/dL 0-130 [facility] Serum or plasma urea nitroge n measurement (mass/volume)Ordered By: True Vazquez on 08-09-2023 Urea nitrogen [Mass/Vol] 7 mg/dL 7-18 [facility] Thin prep Papanicolaou smear with manual screeningOrdered By: True Vazquez on 08-09-2023 Thin prep Papanicolaou smear with manual screening 6 5-15 [facility] Basophil percentageOrdered B y: True Vazquez on 04-10-2023 Basophil percentage 10-25 SEEN /hpf 0-5 [facility] Chloride [Moles/Vol] 103 mmol/L 98-[address] [facility] Glucose [Mass/Vol] 108 mg/dL 74-106 [facility] Comment on above: Fasting Glucose resu lt from 100 to 125 mg/dL suggests IMPAIRED HOMEOSTASIS per A.D.A. criteria. Potassium [Moles/Vol] 4.0 mmol/L 3.5-5.1 [facility] Sodium [Moles/Vol] 135 mmol/L 136-145 [facility] Bilirubin Test strip Ql (U)O rdered By: True Vazquez on 04-10-2023 Bilirubin Ql (U) Negative Negative [facility] Culture, urineOrdered By: Bernardo Vazquez on 04-10-2023 Bacteria identified Cx Nom (U) Presumptive E. coli [facility] Ketones Test strip Ql (U)Ord ered By: True Vazquez on 04-10-2023 Ketones Ql (U) Negative Negative [facility] Laboratory - Chemistry and C hemistry - challengeOrdered By: True Vazquez on 04-10-2023 CO2 [Moles/Vol] 24.0 mmol/L 21.0-32.0 [facility] Urea nitrogen/Creatinine [Mass ratio] 8.7 mg/mg 10-20 [facility] Mucus LM Ql (Urine sed)Order ed By: True Vazquez on 04-10-2023 Mucus Ql (Urine sed) 0 SEEN /hpf [facility] Nitrite Test strip Ql (U)Ord ered By: True Vazquez on 04-10-2023 Nitrite Ql (U) Positive Negative [facility] No Panel InformationOrdered By: True Vazquez on 04-10-2023 Estimated GFR (MDRD) Amer 106 mL/min >60 [facility] Comment on above: GFR Calc Estimated GFR (MDRD) Non-Af Amer 88 mL/min >60 [facility] Comment on above: Non- GFR Calc Protein Test strip Ql (U)Ord ered By: True Vazquez on 04-10-2023 Protein Ql (U) Negative Negative [facility] Serum or plasma calcium devin urement (mass/volume)Ordered By: True Vazquez on 04-10-2023 Calcium [Mass/Vol] 8.7 mg/dL 8.5-10.1 [facility] Serum or plasma creatinine m easurement (mass/volume)Ordered By: True Vazquez on 04-10-2023 Creatinine [Mass/Vol] 0.69 mg/dL 0.55-1.02 [facility] Comment on above: The validity of the calculated GFR & GFRAA in patients over 70 years has not been determined. Clinical correlation is essential. Serum or plasma urea nitroge n measurement (mass/volume)Ordered By: True Vazquez on 04-10-2023 Urea nitrogen [Mass/Vol] 6 mg/dL 7-18 [facility] Squamous epithelial cells de tection in urine sediment by light microscopyOrdered By: True Vazquez on 04-10-2023 Epithelial cells.squamous LM Ql (Urine sed) 0 SEEN /hpf 5-10 [facility] Thin prep Papanicolaou smear with manual screeningOrdered By: True Vazquez on 04-10-2023 Thin prep Papanicolaou smear with manual screening 8 5-15 [facility] Urine blood detectionOrdered By: True Vazquez on 04-10-2023 RBC Ql (U) 50 /ul Negative [facility] RBC Ql (U) 0-5 SEEN /hpf 0-5 [facility] Urine clarityOrdered By: Chr istopwan George on 04-10-2023 Clarity (U) Sl. Cloudy Clear [facility] Urine color determinationOrd ered By: True Vazquez on 04-10-2023 Color (U) Yellow Yellow [facility] Urine glucose detectionOrder ed By: True Vazquez on 04-10-2023 Glucose Ql (U) Normal mg/dl Normal [facility] Urine leukocyte esterase det ection by dipstickOrdered By: True Vazquez on 04-10-2023 Leukocyte esterase Test strip Ql (U) 500 /ul Negative [facility] Urine pHOrdered By: Zeferino Vazquez on 04-10-2023 pH (U) 6.0 [pH] 5.0 - 8.0 [facility] Urine sediment bacteria coun t by microscopy (number/high power field)Ordered By: True Vazquez on 04-10-2023 Bacteria LM.HPF (Urine sed) [#/Area] 2 /[HPF] None Seen [facility] Urine specific gravity measu rementOrdered By: True Vazquez on 04-10-2023 Specific gravity (U) [Rel density] 1.010 1.002-1.03 0 [facility] Urobilinogen Auto test strip Ql (U)Ordered By: True Vazquez on 04-10-2023 Urobilinogen Ql (U) 1 mg/dl Normal [facility] Basophil percentageOrdered B y: True Vazquez on 01-01-2023 Bilirubin [Mass/Vol] 0.50 mg/dL 0.20-1.[address] [facility] Comment on above: For patients on eltr ombopag therapy, use of Dimension [place] TBIL is not recommended. Chloride [Moles/Vol] 103 mmol/L 98-[address] [facility] Glucose [Mass/Vol] 80 mg/dL 74-106 [facility] Potassium [Moles/Vol] 4.1 mmol/L 3.5-5.1 [facility] Protein [Mass/Vol] 6.5 g/dL 6.4-8.2 [facility] Sodium [Moles/Vol] 137 mmol/L 136-145 [facility] WBC (Bld) [#/Vol] 6.3 10*3/uL 4.4-11.0 [facility] Blood erythrocytes count (nu mber/volume)Ordered By: True Vazquez on 01-01-2023 RBC (Bld) [#/Vol] 3.74 10*6/uL 4.2-5.[address] [facility] Blood hemoglobin measurement (mass/volume)Ordered By: True Vazquez on 01-01-2023 Hemoglobin (Bld) [Mass/Vol] 12.6 g/dL 12.0-15.0 [facility] Blood platelet mean volumeOr dered By: True Vazquez on 01-01-2023 Platelet mean volume (Bld) [Entitic vol] 9.7 fL 6.2-12.0 [facility] Determination of erythrocyte mean corpuscular volume (MCV)Ordered By: True Vazquez on 01-01-2023 MCV (RBC) [Entitic vol] 104.5 fL 81-99 [facility] Erythrocyte sedimentation ra teOrdered By: True Vazquez on 01-01-2023 ESR (Bld) [Velocity] 6 mm/h 0-[address] [facility] Hematocrit Auto (Bld) [Volum e fraction]Ordered By: True Vazquez on 01-01-2023 Hematocrit (Bld) [Volume fraction] 39.1 % 37-47 [facility] INR in Blood by Coagulation assayOrdered By: True Vazquez on 01-01-2023 INR Coag (Bld) [Relative time] 1.9 {INR} [facility] Iron measurement (mass/mass) Ordered By: True Vazquez on 01-01-2023 Iron (Unsp spec) [Mass/Mass] 76 ug/dL 50-170 [facility] Laboratory - Chemistry and C hemistry - challengeOrdered By: True Vazquez on 01-01-2023 ALP [Catalytic activity/Vol] 63 U/L 45-117 [facility] ALT [Catalytic activity/Vol] 16 U/L 13-56 [facility] CO2 [Moles/Vol] 27.0 mmol/L 21.0-32.0 [facility] Cobalamin (Vitamin B12) [Mass/Vol] 327 pg/mL 211-911 [facility] Globulin (S) [Mass/Vol] 2.9 g/dL 2.2-4.2 [facility] Urea nitrogen/Creatinine [Mass ratio] 8.8 mg/mg 10-20 [facility] Laboratory - CoagulationOrde red By: True Vazquez on 01-01-2023 PT Coag (PPP) [Time] 22.1 s 11.7-14.[address] [facility] Laboratory - Hematology and Cell countsOrdered By: True Vazquez on 01-01-2023 Erythrocyte distribution width (RBC) [Entitic vol] 49.7 fL 35.1-43.9 [facility] Erythrocyte distribution width (RBC) [Ratio] 13.1 % 11.6-14.6 [facility] MCH (RBC) [Entitic mass] 33.7 pg 27.0-32.0 [facility] MCHC Auto (RBC) [Mass/Vol]Or dered By: True Vazquez on 01-01-2023 MCHC (RBC) [Mass/Vol] 32.2 g/dL 32-36 [facility] No Panel InformationOrdered By: True Vazquez on 01-01-2023 Estimated GFR (MDRD) Amer 107 mL/min >60 [facility] Comment on above: GFR Calc Estimated GFR (MDRD) Non-Af Amer 88 mL/min >60 [facility] Comment on above: Non- GFR Calc Platelets bldOrdered By: Long Vazquez on 01-01-2023 Platelets (Bld) [#/Vol] 216 10*3/uL 150-450 [facility] Serum or plasma C reactive p rotein measurement (mass/volume)Ordered By: True Vazquez on 01-01-2023 CRP [Mass/Vol] 4.54 mg/L 0.0-3.0 [facility] Comment on above: C-Reactive Protein ( CRP) provides useful information for thediagnosis, therapy and monitoring of inflammatory processesand associated diseases. For the evaluation of Relative Riskfor Cardiovascular Disease, a High Sensitivity CRP (HSCRP)should be ordered. Serum or plasma albumin devin urement (mass/volume)Ordered By: True Vazquez on 01-01-2023 Albumin [Mass/Vol] 3.6 g/dL 3.2-5.0 [facility] Serum or plasma albumin/glob ulin mass ratioOrdered By: True Vazquez on 01-01-2023 Albumin/Globulin [Mass ratio] 1.2 {ratio} 0.9-2.4 [facility] Serum or plasma calcium devin urement (mass/volume)Ordered By: True Vazquez on 01-01-2023 Calcium [Mass/Vol] 8.8 mg/dL 8.5-10.1 [facility] Serum or plasma creatinine m easurement (mass/volume)Ordered By: True Vazquez on 01-01-2023 Creatinine [Mass/Vol] 0.68 mg/dL 0.55-1.02 [facility] Comment on above: The validity of the calculated GFR & GFRAA in patients over 70 years has not been determined. Clinical correlation is essential. Serum or plasma ferritin valdemar surement (mass/volume)Ordered By: True Vazquez on 01-01-2023 Ferritin [Mass/Vol] 21 ng/mL 8-[address] [facility] Serum or plasma urea nitroge n measurement (mass/volume)Ordered By: True Vazquez on 01-01-2023 Urea nitrogen [Mass/Vol] 6 mg/dL 7-18 [facility] Thin prep Papanicolaou smear with manual screeningOrdered By: True Vazquez on 01-01-2023 Thin prep Papanicolaou smear with manual screening 14 U/L 1537 [facility] Thin prep Papanicolaou smear with manual screening 7 - [facility] Absolute lymphocyte countOrd ered By: Dr. Vazquez on 08-08-2022 Lymphocytes Auto (Unsp spec) [#/Vol] 1.54 10*3/uL 0.83-4.51 [facility] Basophil percentageOrdered B y: Dr. Vazquez on 08-08-2022 Basophils/100 WBC (Bld) 0.5 % 0-1 [facility] Bilirubin [Mass/Vol] 0.40 mg/dL 0.20-1.[address] [facility] Comment on above: For patients on eltr ombopag therapy, use of Dimension [place] TBIL is not recommended. Chloride [Moles/Vol] 103 mmol/L 98-[address] [facility] Eosinophils/100 WBC (Bld) 3.3 % 0-5 [facility] Glucose [Mass/Vol] 97 mg/dL 74-106 [facility] Neutrophils (Bld) [#/Vol] 3.9 10*3/uL 2.0-7.7 [facility] Neutrophils/100 WBC (Bld) 63.2 % 47-70 [facility] Potassium [Moles/Vol] 4.2 mmol/L 3.5-5.1 [facility] Protein [Mass/Vol] 6.4 g/dL 6.4-8.2 [facility] Sodium [Moles/Vol] 137 mmol/L 136-145 [facility] WBC (Bld) [#/Vol] 6.1 10*3/uL 4.4-11.0 [facility] Blood erythrocytes count (nu mber/volume)Ordered By: Dr. Vazquez on 08-08-2022 RBC (Bld) [#/Vol] 3.80 10*6/uL 4.2-5.[address] [facility] Blood hemoglobin measurement (mass/volume)Ordered By: Dr. Vazquez on 08-08-2022 Hemoglobin (Bld) [Mass/Vol] 12.8 g/dL 12.0-15.0 [facility] Blood lymphocytes/100 leukoc ytesOrdered By: Dr. Vazquez on 08-08-2022 Lymphocytes/100 WBC (Bld) 25.2 % 19-41 [facility] Blood monocytes/100 leukocyt esOrdered By: Dr. Vazquez on 08-08-2022 Monocytes/100 WBC (Bld) 7.5 % 0-10 [facility] Blood platelet mean volumeOr dered By: Dr. Vazquez on 08-08-2022 Platelet mean volume (Bld) [Entitic vol] 9.4 fL 6.2-12.0 [facility] Determination of erythrocyte mean corpuscular volume (MCV)Ordered By: Dr. Vazquez on 08-08-2022 MCV (RBC) [Entitic vol] 103.9 fL 81-99 [facility] Erythrocyte sedimentation ra teOrdered By: Dr. Vazquez on 08-08-2022 ESR (Bld) [Velocity] 5 mm/h 0-[address] [facility] Hematocrit Auto (Bld) [Volum e fraction]Ordered By: Dr. Vazquez on 08-08-2022 Hematocrit (Bld) [Volume fraction] 39.5 % 37-47 [facility] Iron measurement (mass/mass) Ordered By: Dr. Vazquez on 08-08-2022 Iron (Unsp spec) [Mass/Mass] 47 ug/dL 50-170 [facility] Laboratory - Chemistry and C hemistry - challengeOrdered By: Dr. Vazquez on 08-08-2022 ALP [Catalytic activity/Vol] 68 U/L 45-117 [facility] ALT [Catalytic activity/Vol] 15 U/L 13-56 [facility] CO2 [Moles/Vol] 28.0 mmol/L 21.0-32.0 [facility] Cobalamin (Vitamin B12) [Mass/Vol] 458 pg/mL 211-911 [facility] Globulin (S) [Mass/Vol] 2.7 g/dL 2.2-4.2 [facility] Magnesium [Mass/Vol] 2.0 mg/dL 1.6-2.[address] [facility] Urea nitrogen/Creatinine [Mass ratio] 7.2 mg/mg 10-20 [facility] Laboratory - Hematology and Cell countsOrdered By: Dr. Vazquez on 08-08-2022 Erythrocyte distribution width (RBC) [Entitic vol] 50.6 fL 35.1-43.9 [facility] Erythrocyte distribution width (RBC) [Ratio] 13.2 % 11.6-14.6 [facility] Immature granulocytes/100 WBC (Bld) 0.300 % 0.0-0.9 [facility] Comment on above: IG% - Immature Granu locytes (promyelocytes, myelocytes and metamyelocytes) > 1% indicates that a LEFT SHIFT is Present. MCH (RBC) [Entitic mass] 33.7 pg 27.0-32.0 [facility] Nucleated RBC/100 WBC (Bld) [Ratio] 0.3 % 0-5 [facility] MCHC Auto (RBC) [Mass/Vol]Or dered By: Dr. Vazquez on 08-08-2022 MCHC (RBC) [Mass/Vol] 32.4 g/dL 32-36 [facility] No Panel InformationOrdered By: Dr. Vazquez on 08-08-2022 Estimated GFR (MDRD) Amer 84 mL/min >60 [facility] Comment on above: GFR Calc Estimated GFR (MDRD) Non-Af Amer 70 mL/min >60 [facility] Comment on above: Non- GFR Calc Ionized Calcium 5.3 mg/dL 4.5-5.6 [facility] Comment on above: Performed at: [id number] [place], [place] [id number] Director: Mando Dacosta [facility], Phone: [phone] at: [facility] [id number] Director: Milad Harley PhD, Phone: [phone] MTHFR Thermolabile Variant DNA Anal Comment . 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 [id number]), legacy name: [id number] - Not Detected Interpretation:This result is not associated with an increased risk forhyperhomocysteinemia. See Additional Clinical Informationand Comments.Additional Clinical Information:Hyperhomocysteinemia is multifactorial involving genetic,clinical, and environmental risk factors. Reduced enzymeactivity of methylenetetrahydrofolate reductase (MTHFR) cecilio genetic risk factor for hyperhomocysteinemia,particularly when serum folate levels are low. There aretwo common variants in the MTHFR gene that can decreaseenzyme activity; c.665C>T (p. [id number]), legacy [id number], and c.1286A>C (p. [id number]), legacy name [id number].These variants do not independently increase risk ofconditions [...] due to limited evidence of clinical utility(PMID: 11827469). Comments:Genetic Coordinators are available for health careproviders to discuss results at [phone] Details:Variants Analyzed: c.665C>T (p. [id number]), legacy name:[id number] and c.1286A>C (p. [id number]), legacy name: [id number]/Limitations:DNA analysis of the MTHFR gene was performed [...] was developed and its performancecharacteristics determined by [employer]. It has not beencleared or approved by the Food and Drug Administration.References:Bryant SE, Alejo CJ, Toña HV. [facility] PracticeGuideline: lack of evidence for MTHFR polymorphism testing.Tiffanie Med. 2012;15(2):153-6. doi: 10.1038/gim.2012.165.Epub 2012Aug 22. PMID: 78289054.[place] [employer]'Committee on Practice Bulletins-Obstetrics. ACOG PracticeBulletin No. 197: Inherited Thrombophilias in .Obstet Gynecol. 2018 Feb;132(1):e18-e34. doi:10.1097/AOG.[id number]. Erratum in: Obstet Gynecol.2018 May;132(4):1069. PMID: 34021801.Kaia Lambert, PhD, Harris Biswas, PhDKenroy Slaughter, PhD, Marisol Palmer, PhD, FACJordi Mann, PhD, FACW Jerrica Prather, PhD, Magdiel Villalobos, PhD, Mireya Vora, PhD, FACMG Parathyroid Hormone (Intact) 74.0 pg/mL 18.4-80.1 [facility] Thyroid Stimulating Hormone (TSH) 1.28 uIU/mL 0.358-3.74 [facility] Vitamin D 25-Hydroxy 50.9 ng/mL [facility] Comment on above: Vitamin D 25(OH) Sta tus Range Deficiency <20 ng/mL (50nmol/L) Insufficiency 20 - 30 ng/mL (50 - 75 nmol/L) Sufficiency 30 - 100 ng/mL (75 - 250 nmol/L) Toxicity >100 ng/mL (>250 nmol/L) Platelets bldOrdered By: Dr. Vazquez on 08-08-2022 Platelets (Bld) [#/Vol] 248 10*3/uL 150-450 [facility] Serum or plasma C reactive p rotein measurement (mass/volume)Ordered By: Dr. Vazquez on 08-08-2022 CRP [Mass/Vol] 4.39 mg/L 0.0-3.0 [facility] Comment on above: C-Reactive Protein ( CRP) provides useful information for thediagnosis, therapy and monitoring of inflammatory processesand associated diseases. For the evaluation of Relative Riskfor Cardiovascular Disease, a High Sensitivity CRP (HSCRP)should be ordered. Serum or plasma albumin devin urement (mass/volume)Ordered By: Dr. Vazquez on 08-08-2022 Albumin [Mass/Vol] 3.7 g/dL 3.2-5.0 [facility] Serum or plasma albumin/glob ulin mass ratioOrdered By: Dr. Vazquez on 08-08-2022 Albumin/Globulin [Mass ratio] 1.4 {ratio} 0.9-2.4 [facility] Serum or plasma calcium devin urement (mass/volume)Ordered By: Dr. Vazquez on 08-08-2022 Calcium [Mass/Vol] 8.5 mg/dL 8.5-10.1 [facility] Serum or plasma creatinine m easurement (mass/volume)Ordered By: Dr. Vazquez on 08-08-2022 Creatinine [Mass/Vol] 0.84 mg/dL 0.55-1.02 [facility] Comment on above: The validity of the calculated GFR & GFRAA in patients over 70 years has not been determined. Clinical correlation is essential. Serum or plasma ferritin valdemar surement (mass/volume)Ordered By: Dr. Vazquez on 08-08-2022 Ferritin [Mass/Vol] 12 ng/mL 8-[address] [facility] Serum or plasma urea nitroge n measurement (mass/volume)Ordered By: Dr. Vazquez on 08-08-2022 Urea nitrogen [Mass/Vol] 6 mg/dL 7-18 [facility] Serum rheumatoid factor dete ctionOrdered By: Dr. Vazquez on 08-08-2022 Rheumatoid factor Ql (S) < 10.0 IU/mL <15 [facility] Thin prep Papanicolaou smear with manual screeningOrdered By: Dr. Vazquez on 08-08-2022 Thin prep Papanicolaou smear with manual screening 12 U/L 15-37 [facility] Thin prep Papanicolaou smear with manual screening 6 5-15 [facility] Thin prep Papanicolaou smear with manual screening Not Reportable [facility] Absolute lymphocyte counton 05-02-2022 Lymphocytes Auto (Unsp spec) [#/Vol] 1.36 10*3/uL 0.83-4.51 [facility] Work Phone: Basophil percentageon 2021 Basophil percentage 0 SEEN /hpf 0-[address] [facility] Work Phone: Basophils/100 WBC (Bld) 0.4 % 0-1 [facility] Work Phone: Chloride [Moles/Vol] 103 mmol/L 98-[address] [facility] Work Phone: Eosinophils/100 WBC (Bld) 2.5 % 0-5 [facility] Work Phone: Glucose [Mass/Vol] 97 mg/dL 74-106 [facility] Work Phone: Neutrophils (Bld) [#/Vol] 6.2 10*3/uL 2.0-7.7 [facility] Work Phone: Neutrophils/100 WBC (Bld) 73.8 % 47-70 [facility] Work Phone: Potassium [Moles/Vol] 3.7 mmol/L 3.5-5.1 [facility] Work Phone: Sodium [Moles/Vol] 140 mmol/L 136-145 [place] [facility] Work Phone: [phone] WBC (Bld) [#/Vol] 8.4 10*3/uL 4.4-11.0 [facility] Work Phone: [phone] Bilirubin Test strip Ql (U)o n 05-02-2022 Bilirubin Ql (U) Negative Negative [facility] Work Phone: [phone] Blood erythrocytes count (nu mber/volume)on 05-02-2022 RBC (Bld) [#/Vol] 4.09 10*6/uL 4.2-5.4 [facility]: Blood hemoglobin measurement (mass/volume)on 05-02-2022 Hemoglobin (Bld) [Mass/Vol] 13.7 g/dL 12.0-15.0 [facility] Work Phone: Blood lymphocytes/100 leukoc yteson 05-02-2022 Lymphocytes/100 WBC (Bld) 16.1 % 19-41 [facility] Work Phone: Blood monocytes/100 leukocyt eson 05-02-2022 Monocytes/100 WBC (Bld) 7.0 % 0-10 [facility] Work Phone: Blood platelet mean volumeon 05-02-2022 Platelet mean volume (Bld) [Entitic vol] 9.1 fL 6.2-12.0 [facility] Work Phone: Determination of erythrocyte mean corpuscular volume (MCV)on 05-02-2022 MCV (RBC) [Entitic vol] 100.7 fL 81-99 [facility] Work Phone: Hematocrit Auto (Bld) [Volum e fraction]on 05-02-2022 Hematocrit (Bld) [Volume fraction] 41.2 % 37-47 [facility] Work Phone: INR in Blood by Coagulation assayon 05-02-2022 INR Coag (Bld) [Relative time] 1.9 {INR} [facility] Work Phone: Ketones Test strip Ql (U)on 05-02-2022 Ketones Ql (U) Negative Negative [facility] Work Phone: Laboratory - Chemistry and C hemistry - challengeon 05-02-2022 CO2 [Moles/Vol] 29.0 mmol/L 21.0-32.0 [facility] Work Phone: Urea nitrogen/Creatinine [Mass ratio] 6.0 mg/mg 10-20 [facility] Work Phone: Laboratory - Coagulationon 0 05-02-2022 PT Coag (PPP) [Time] 21.7 s 11.7-14.[address] [facility] Work Phone: Laboratory - Hematology and Cell countson 05-02-2022 Erythrocyte distribution width (RBC) [Entitic vol] 47.8 fL 35.1-43.9 [facility] Work Phone: Erythrocyte distribution width (RBC) [Ratio] 12.8 % 11.6-14.6 [facility] Work Phone: Immature granulocytes/100 WBC (Bld) 0.200 % 0.0-0.9 [facility] Work Phone: Comment on above: IG% - Immature Granu locytes (promyelocytes, myelocytes and metamyelocytes) > 1% indicates that a LEFT SHIFT is Present. MCH (RBC) [Entitic mass] 33.5 pg 27.0-32.0 [facility] Work Phone: Nucleated RBC/100 WBC (Bld) [Ratio] 0 % 0-5 [facility] Work Phone: MCHC Auto (RBC) [Mass/Vol]on 05-02-2022 MCHC (RBC) [Mass/Vol] 33.3 g/dL 32-36 [facility] Work Phone: Mucus LM Ql (Urine sed)on Mucus Ql (Urine sed) 0 SEEN /hpf [facility] Work Phone: Nitrite Test strip Ql (U)on 05-02-2022 Nitrite Ql (U) Negative Negative [facility] Work Phone: No Panel Informationon 05-02 Estimated Creatinine Clearance Calc 50.27 ml/min [facility] Work Phone: Estimated GFR (MDRD) Amer 85 mL/min >60 [facility] Work Phone: Comment on above: GFR Calc Estimated GFR (MDRD) Non-Af Amer 70 mL/min >60 [facility] Work Phone: Comment on above: Non- GFR Calc Troponin I High Sensitivity 5 pg/mL 3.0-54.0 [facility] Work Phone: Comment on above: Please Note: New Neftali t Units and Gender Specific Reference Ranges. For more information see Policy Stat Procedure [place] High Sensitivity Troponin (TNIH) and attachments. Platelets bldon 05-02-2022 Platelets (Bld) [#/Vol] 187 10*3/uL 150-450 [facility] Work Phone: Protein Test strip Ql (U)on 05-02-2022 Protein Ql (U) Negative Negative [facility] Work Phone: Serum or plasma calcium devin urement (mass/volume)on 05-02-2022 Calcium [Mass/Vol] 9.3 mg/dL 8.5-10.1 [facility] Work Phone: Serum or plasma creatinine m easurement (mass/volume)on 05-02-2022 Creatinine [Mass/Vol] 0.83 mg/dL 0.55-1.02 [facility] Work Phone: Comment on above: The validity of the calculated GFR & GFRAA in patients over 70 years has not been determined. Clinical correlation is essential. Serum or plasma urea nitroge n measurement (mass/volume)on 05-02-2022 Urea nitrogen [Mass/Vol] 5 mg/dL 7-18 [facility] Work Phone: Squamous epithelial cells de tection in urine sediment by light microscopyon 05-02-2022 Epithelial cells.squamous LM Ql (Urine sed) 0 SEEN /hpf 5-10 [facility] Work Phone: Thin prep Papanicolaou smear with manual screeningon 05-02-2022 Thin prep Papanicolaou smear with manual screening 8 5-15 [facility] Work Phone: Urine blood detectionon 04-20 RBC Ql (U) Negative Negative [facility] Work Phone: RBC Ql (U) 0 SEEN /hpf 0-5 [facility] Work Phone: Urine clarityon 05-02-2022 Clarity (U) Clear Clear [facility] Work Phone: Urine color determinationon 05-02-2022 Color (U) Yellow Yellow [facility] Work Phone: Urine glucose detectionon Glucose Ql (U) Normal mg/dl Normal [facility] Work Phone: Urine leukocyte esterase det ection by dipstickon 05-02-2022 Leukocyte esterase Test strip Ql (U) Negative Negative [facility] Work Phone: Urine pHon 05-02-2022 pH (U) 7.0 [pH] 5.0 - 8.0 [facility] Work Phone: Urine sediment bacteria coun t by microscopy (number/high power field)on 05-02-2022 Bacteria LM.HPF (Urine sed) [#/Area] 0 /[HPF] None Seen [facility] Work Phone: Urine specific gravity measu rementon 05-02-2022 Specific gravity (U) [Rel density] 1.010 1.002-1.03 0 [facility] Work Phone: Urobilinogen Auto test strip Ql (U)on 05-02-2022 Urobilinogen Ql (U) Normal mg/dl Normal [facility] Work Phone: [phone] Absolute lymphocyte counton 02-01-2022 Lymphocytes Auto (Unsp spec) [#/Vol] 1.59 10*3/uL 0.83-4.51 [facility] Work Phone: Basophil percentageon 2021 Basophils/100 WBC (Bld) 0.3 % 0-1 [facility] Work Phone: Bilirubin [Mass/Vol] 0.30 mg/dL 0.20-1.[address] [facility] Work Phone: Comment on above: For patients on eltr ombopag therapy, use of Dimension [place] TBIL is not recommended. Chloride [Moles/Vol] 102 mmol/L 98-[address] [facility] Work Phone: Eosinophils/100 WBC (Bld) 2.0 % 0-5 [facility] Work Phone: Glucose [Mass/Vol] 100 mg/dL 74-106 [facility] Work Phone: Comment on above: Fasting Glucose resu lt from 100 to 125 mg/dL suggests IMPAIRED HOMEOSTASIS per A.D.A. criteria. Neutrophils (Bld) [#/Vol] 5.2 10*3/uL 2.0-7.7 [facility] Work Phone: Neutrophils/100 WBC (Bld) 69.7 % 47-70 [facility] Work Phone: [phone] Potassium [Moles/Vol] 4.3 mmol/L 3.5-5.1 [facility] Work Phone: Protein [Mass/Vol] 7.1 g/dL 6.4-8.2 [facility] Work Phone: Sodium [Moles/Vol] 137 mmol/L 136-145 [facility] Work Phone: WBC (Bld) [#/Vol] 7.5 10*3/uL 4.4-11.0 [facility]: Blood erythrocytes count (nu mber/volume)on 02-01-2022 RBC (Bld) [#/Vol] 4.22 10*6/uL 4.2-5.[address] [facility] Work Phone: Blood hemoglobin measurement (mass/volume)on 02-01-2022 Hemoglobin (Bld) [Mass/Vol] 13.9 g/dL 12.0-15.0 [facility] Work Phone: Blood lymphocytes/100 leukoc yteson 02-01-2022 Lymphocytes/100 WBC (Bld) 21.1 % 19-41 [facility] Work Phone: Blood monocytes/100 leukocyt eson 02-01-2022 Monocytes/100 WBC (Bld) 6.6 % 0-10 [facility] Work Phone: Blood platelet mean volumeon 02-01-2022 Platelet mean volume (Bld) [Entitic vol] 9.1 fL 6.2-12.0 [facility] Work Phone: Determination of erythrocyte mean corpuscular volume (MCV)on 02-01-2022 MCV (RBC) [Entitic vol] 98.8 fL 81-99 [facility] Work Phone: Erythrocyte sedimentation ra eugene 02-01-2022 ESR (Bld) [Velocity] 10 mm/h 0-[address] [facility] Work Phone: Hematocrit Auto (Bld) [Volum e fraction]on 02-01-2022 Hematocrit (Bld) [Volume fraction] 41.7 % 37-47 [facility] Work Phone: Iron measurement (mass/mass) on 02-01-2022 Iron (Unsp spec) [Mass/Mass] 48 ug/dL 50-170 [facility] Work Phone: Laboratory - Chemistry and C hemistry - challengeon 02-01-2022 ALP [Catalytic activity/Vol] 62 U/L 45-117 [facility] Work Phone: ALT [Catalytic activity/Vol] 20 U/L 13-56 [facility] Work Phone: CO2 [Moles/Vol] 29.0 mmol/L 21.0-32.0 [facility] Work Phone: Cobalamin (Vitamin B12) [Mass/Vol] 1309 pg/mL 211-911 [facility] Work Phone: Globulin (S) [Mass/Vol] 3.3 g/dL 2.2-4.2 [facility] Work Phone: Magnesium [Mass/Vol] 1.8 mg/dL 1.6-2.[address] [facility] Work Phone: Urea nitrogen/Creatinine [Mass ratio] 9.4 mg/mg 10-20 [facility] Work Phone: Laboratory - Hematology and Cell countson 02-01-2022 Erythrocyte distribution width (RBC) [Entitic vol] 46.2 fL 35.1-43.9 [facility] Work Phone: Erythrocyte distribution width (RBC) [Ratio] 12.7 % 11.6-14.6 [facility] Work Phone: Immature granulocytes/100 WBC (Bld) 0.300 % 0.0-0.9 [facility] Work Phone: Comment on above: IG% - Immature Granu locytes (promyelocytes, myelocytes and metamyelocytes) > 1% indicates that a LEFT SHIFT is Present. MCH (RBC) [Entitic mass] 32.9 pg 27.0-32.0 [facility] Work Phone: Nucleated RBC/100 WBC (Bld) [Ratio] 0 % 0-5 [facility] Work Phone: MCHC Auto (RBC) [Mass/Vol]on 02-01-2022 MCHC (RBC) [Mass/Vol] 33.3 g/dL 32-36 [facility] Work Phone: No Panel Informationon 02-01 Estimated GFR (MDRD) Amer 83 mL/min >60 [facility] Work Phone: Comment on above: GFR Calc Estimated GFR (MDRD) Non-Af Amer 69 mL/min >60 [facility] Work Phone: Comment on above: Non- GFR Calc Thyroid Stimulating Hormone (TSH) 1.13 uIU/mL 0.358-3.74 [facility] Work Phone: Vitamin D 25-Hydroxy 66.7 ng/mL [facility] Work Phone: Comment on above: Vitamin D 25(OH) Sta tus Range Deficiency <20 ng/mL (50nmol/L) Insufficiency 20 - 30 ng/mL (50 - 75 nmol/L) Sufficiency 30 - 100 ng/mL (75 - 250 nmol/L) Toxicity >100 ng/mL (>250 nmol/L) Platelets bldon 02-01-2022 Platelets (Bld) [#/Vol] 254 10*3/uL 150-450 [facility] Work Phone: Serum or plasma albumin devin urement (mass/volume)on 02-01-2022 Albumin [Mass/Vol] 3.8 g/dL 3.2-5.0 [facility] Work Phone: Serum or plasma albumin/glob ulin mass ratioon 02-01-2022 Albumin/Globulin [Mass ratio] 1.2 {ratio} 0.9-2.4 [facility] Work Phone: Serum or plasma calcium devin urement (mass/volume)on 02-01-2022 Calcium [Mass/Vol] 9.1 mg/dL 8.5-10.1 [facility] Work Phone: Serum or plasma creatinine m easurement (mass/volume)on 02-01-2022 Creatinine [Mass/Vol] 0.85 mg/dL 0.55-1.02 [facility] Work Phone: Comment on above: The validity of the calculated GFR & GFRAA in patients over 70 years has not been determined. Clinical correlation is essential. Serum or plasma ferritin valdemar surement (mass/volume)on 02-01-2022 Ferritin [Mass/Vol] 15 ng/mL 8-[address] [facility] Work Phone: Serum or plasma urea nitroge n measurement (mass/volume)on 02-01-2022 Urea nitrogen [Mass/Vol] 8 mg/dL 7-18 [facility] Work Phone: Thin prep Papanicolaou smear with manual screeningon 02-01-2022 Thin prep Papanicolaou smear with manual screening 17 U/L 15-37 [facility] Work Phone: Thin prep Papanicolaou smear with manual screening 6 5-15 [facility] Work Phone: Office Visit: discuss dysmot ilityon 04-11-2017 Documentation of current medications (procedure) Done Invalid Interpretation Code [facility] Work Phone: Fall risk assessment No Invalid Interpretation Code [facility] Work Phone: Tobacco use [facility] Never smoker Invalid Interpretation Code [facility] Work Phone: CNCOon 04-03-2017 CNCO Letter Freddie Coello ra, [id number] [phone]: Fax: august 2016Dear Ms. Martinez was a [...] Betancourt MD(electronically signed to expedite mailing) [facility] CT ABDOMEN W IVCONon 07-25-[address] ABDOMEN W IVCON * * *Final Report* * *DATE OF EXAM: Mar 13 2017 3:13PM [facility] 0533 - CT ABDOMEN W IVCON [...] Mar 13 2017 4:11PDictated by : WESLY ERBOLLEDO MDThis examination was interpreted and the report reviewed and electronically signed by: WESLY REBOLLEDO MD on Mar 13 2017 4:46PM EST [facility] PROGRESSon 03-13-2017 PROGRESS HNO ID: [id number] thor: Jennifer Maier CtService: (none)Author Type: (none)Type: Progress NotesFiled: 03/13/2017 3:16 PMNote Text: Radiology Service Progress NotePATIENT NAME: Sindy SweeneyMRN: [id number] OF SERVICE: March 13, 2017TIME: 3:15 PMPATIENT IDENTITY VERIFICATION COMPLETED USING TWO (2) METHODS: Patientconfirmed name verbally and Date of .PATIENT GENDER DATA: Female. status: : NoBreastfeeding status: NO.PATIENT RELEVANT IMPLANT DATA REVIEWED: Not ApplicableCONTRAST INDUCED NEPHROPATHY RISK FACTORS: Patient age > 60 yearsCREATININE:CreatinineD ate Value Ref Range Bhwsny7711/14/2012 0.66 (L) 0.70 - 1.40 mg/dL Final11/13/2012 [...] Jennifer Maier CtJuly 2016 3:15 PM [facility] [place] Creatinineon 03-13- 017 Creatinine 0.7 mg/dL Normal 0.7-1.4 [facility] CNOVon 03-08-2017 CNOV Office Visit (GASTMN) -------SINDY SWEENEY ([id number]) 1945 FDate Time Provider Department03/08/17 12:40 PM MEENA BETANCOURT (SONAL) GASTMN During your visit today, we recorded the following information about you: Temperature Pulse Blood pressure Weight 97.3 degrees 75/minute 135/70 92.2 kg Height 1.626 Lisset Daniel MD 03/08/2017 2:25 PM SignedDEPARTMENT OF GASTROENTEROLOGY - NEW PATIENT/CONSULTREASON FOR VISITStom Mansfield Zahra is a 71 year old female who [...] SURGICAL HISTORYNo date: CHOLECYSTECTOMY HX02/04/2017: EGD W/O [facility] SPECIMEN [id number]: LAP UMBILICAL HERNIA REPAIR11/10/2012: PICC LINE INSERT/CONSULT [...] be difficultwihtout esophageal lengthening procedure (Juanita).Bravo Daniel MD,TASHA,[facility] Provider: STEPHANIE DACOSTA [[id number]]Allergies As of Date: 03/08/2017 Noted Allergy ReactionLATEX 03/08/2017 2 - RashOXYCODONE 02/26/2013 2 - RashDate Reviewed: 03/08/2017Reviewed by: Jerrica Mo LPN - Fully AssessedReason for Visit: New Patient [172] Cmt: Esophageal DysmotilityPrimary Visit Diagnosis:Screening for nephropathy [Z13.89] Other Visit Diagnoses:Abdominal pain, unspecified location [R10.9] Hiatal hernia [K44.9]Order(s):CREATININE BLD [SQCRET] Order #: [id number] FUTURE CT ABDOMEN W IVCON [[id number]] Order #: [id number] FUTURE iv contrast (radiology procedure)CT ABD W [...] WARFARIN 1 MG TABLET >> Jerrica Csoma SOFT TILE SETTER 03/08/2017 12:49 PM >> CSOMA, JERRICA SOFT TILE SETTER [facility] Mar 08, 2017 12:49 PM Dose varies LOVENOX SUBCUTANEOUS >> Jerrica Csoma SOFT TILE SETTER 03/08/2017 12:47 PM >> CSOMA, JERRICA SOFT TILE SETTER [facility] Mar 08, 2017 12:47 PM Patient not taking GABAPENTIN 100 MG CAPSULE >> Jerrica Csoma SOFT TILE SETTER 03/08/2017 12:48 PM >> CSOMA, JERRICA SOFT TILE SETTER [facility] Mar 08, 2017 12:48 PM Patient not taking HYDROCODONE 5 MG-ACETAMINOPHEN 500 MG TABLET >> Jerrica Csoma SOFT TILE SETTER 03/08/2017 12:46 PM >> CSOMA, JERRICA SOFT TILE SETTER [facility] Mar 08, 2017 12:46 PM Patient not taking WARFARIN 3 MG TABLET >> Jerrica Csoma SOFT TILE SETTER 03/08/2017 12:49 PM >> CSOMA, JERRICA SOFT TILE SETTER [facility] Mar 08, 2017 12:49 PM Patient not taking ALBUTEROL 90 MCG/ACTUATION AEROSOL INHALER >> Jerrica Csoma SOFT TILE SETTER 03/08/2017 12:47 PM >> CSOMA, JERRICA SOFT TILE SETTER [facility] Mar 08, 2017 12:47 PM Patient [...] times daily.Follow-up and Disposition History RecordedEncounter Number: [id number] Status:Closed by BRAVO DANIEL MD on 03/08/17 [facility] PROGRESSon 03-08-2017 PROGRESS HNO ID: [id number] thor: Bravo Hensley: (none)Author Type: PhysicianType: Progress [...] with eating food. [facility] reportedly negative. She wastold she had a hiatal hernia and was asked to get that evaluated further.Underwent EGD 02/06/17 which was unremarkable except for hiatal hernia +mild distal esophagitis. She then underwent a manometry which showedfindings consistent with "ineffective esophageal motility".Reports that her symptoms are episodic, comes as an "attack" and she isasymptomatic in between. Describes the symptoms as a "spasm" + swelling upof her abdomen, she feels [...] SURGICAL HISTORYNo date: CHOLECYSTECTOMY HX02/04/2017: EGD W/O [facility] SPECIMEN [id number]: LAP UMBILICAL HERNIA REPAIR11/10/2012: PICC LINE INSERT/CONSULT [...] 75 Temp (Src) 97.3 (Oral) Ht 5' 4" (1.63m) Wt 203lb 3.2 oz (92.2kg) SpO2 [...] esophageal lengthening procedure (Juanita).Bravo Daniel MD,MACP,MACG [facility] Microbiology: Culture, Urine on 02-06-2017 GE use only - for LinkLogic import when terms are not otherwise specified Trimethoprim/Sulfametho $ <=20 S Invalid Interpretation Code [facility] Work Phone: [phone] Microbiology: (P) Culture, U rineon 02-05-2017 GE use only - for [employer] import when terms are not otherwise specified . Invalid Interpretation Code [facility] Work Phone: Vital Signs Date Time Vital Sign Value Performing Clinician Vikram silva 06-02-2025 11:11-0400 Body height 165.[address] Litzy Vazquez MD Work Phone: [facility] 06-02-2025 11:11-0400 Body mass index (BMI) [Ratio] 31.6 kg/m2 Dr. Litzy Vazquez MD Work Phone: [facility] 06-02-2025 11:11-0400 Body temperature 98 [degF] Dr. Litzy Vazquez MD Work Phone: [facility] 06-02-2025 11:11-0400 Body weight 86.[address] Litzy Vazquez MD Work Phone: [facility] 06-02-2025 11:11-0400 Diastolic blood pressure 82 mm[Hg] Dr. Litzy Vazquez MD Work Phone: [facility] 06-02-2025 11:11-0400 Heart rate 62 /min Dr. Litzy Vazquez MD Work Phone: [facility] 06-02-2025 11:11-0400 Systolic blood pressure 134 mm[Hg] Dr. Litzy Vazquez MD Work Phone: [facility] 06-02-2025 09:41-0400 Body mass index (BMI) [Ratio] 31.6 kg/m2 Dr. Litzy Vazquez MD Work Phone: 5(448)107-808572 [place] [address] 06-02-2025 09:41-0400 Body weight 86.[address] Litzy Vazquez MD Work Phone: 6(428)234-451511 [place] [address] 06-02-2025 09:41-0400 Diastolic blood pressure 74 mm[Hg] Dr. Litzy Vazquez MD Work Phone: 9(654)167-922411 [place] [address] 06-02-2025 09:41-0400 Systolic blood pressure 133 mm[Hg] Dr. Litzy Vazquez MD Work Phone: 5(285)752-579911 [place] [address] 05-23-2025 22:38-0400 Body temperature 97.9 [degF] Dr. Litzy Vazquez MD Work Phone: 9(713)156-981711 [place] [address] 05-23-2025 22:38-0400 Diastolic blood pressure 52 mm[Hg] Dr. Litzy Vazquez MD Work Phone: 1(050)019-965311 [place] [address] 05-23-2025 22:38-0400 Heart rate 83 /min Dr. Litzy Vazquez MD Work Phone: 0(323)179-156011 [place] [address] 05-23-2025 22:38-0400 Respiratory rate 19 /min Dr. Litzy Vazquez MD Work Phone: 2(012)637-509311 [place] [address] 05-23-2025 22:38-0400 SaO2% (BldA) [Mass fraction] 99 % Dr. Litzy Vazquez MD Work Phone: 0(683)003-726811 [place] [address] 05-23-2025 22:38-0400 Systolic blood pressure 134 mm[Hg] Dr. Litzy Vazquez MD Work Phone: 4(017)741-163911 [place] [address] 05-23-2025 18:21-0400 Body height 165.[address] Litzy Vazquez MD Work Phone: 2(413)180-320711 [place] [address] 05-23-2025 18:21-0400 Body mass index (BMI) [Ratio] 33.8 kg/m2 Dr. Litzy Vazquez MD Work Phone: 0(083)534-114872 [place] [address] 05-23-2025 18:21-0400 Body weight 92.[address] Litzy Vazquez MD Work Phone: 6(001)040-844811 [place] [address] 04-28-2025 10:57-0400 Body height 165.[address] Litzy Vazquez MD Work Phone: 6(629)057-763611 [place] [address] 04-28-2025 10:57-0400 Body mass index (BMI) [Ratio] 31.9 kg/m2 Dr. Litzy Vazquez MD Work Phone: 0(541)416-224911 [place] [address] 04-28-2025 10:57-0400 Body temperature 97.3 [degF] Dr. Litzy Vazquez MD Work Phone: 6(794)864-737711 [place] [address] 04-28-2025 10:57-0400 Body weight 87.[address] Litzy Vazquez MD Work Phone: 8(778)478-631911 [place] [address] 04-28-2025 10:57-0400 Diastolic blood pressure 78 mm[Hg] Dr. Litzy Vazquez MD Work Phone: 9(190)078-545711 [place] [address] 04-28-2025 10:57-0400 Heart rate 74 /min Dr. Litzy Vazquez MD Work Phone: 1(907)235-509211 [place] [address] 04-28-2025 10:57-0400 Systolic blood pressure 118 mm[Hg] Dr. Litzy Vazquez MD Work Phone: 1(507)292-411811 [place] [address] 03-31-2025 13:29-0400 Body height 165.[address] Litzy Vazquez MD Work Phone: 7(058)906-175311 [place] [address] 03-31-2025 13:29-0400 Body mass index (BMI) [Ratio] 32.4 kg/m2 Dr. Litzy Vazquez MD Work Phone: 0(887)931-138411 [place] [address] 03-31-2025 13:29-0400 Body temperature 98.3 [degF] Dr. Litzy Vazquez MD Work Phone: 1(597)535-419211 [place] [address] 03-31-2025 13:29-0400 Body weight 88.[address] Litzy Vazquez MD Work Phone: [facility] 03-31-2025 13:29-0400 Diastolic blood pressure 71 mm[Hg] Dr. Litzy Vazquez MD Work Phone: [facility] 03-31-2025 13:29-0400 Heart rate 83 /min Dr. Litzy Vazquez MD Work Phone: 6(448)444-813871 [address] 03-31-2025 13:29-0400 Systolic blood pressure 122 mm[Hg] Dr. Litzy Vazquez MD Work Phone: 0(529)037-003511 [place] [address] 02-24-2025 10:22-0400 Body height 165.[address] Litzy Vazquez MD Work Phone: 4(411)859-084111 [place] [address] 02-24-2025 10:16-0400 Body mass index (BMI) [Ratio] 33.7 kg/m2 Dr. Litzy Vazquez MD Work Phone: 1(094)859-351811 [place] [address] 02-24-2025 10:16-0400 Body weight 92.[address] Litzy Vazquez MD Work Phone: 5(049)644-440011 [place] [address] 02-24-2025 10:16-0400 Diastolic blood pressure 82 mm[Hg] Dr. Litzy Vazquez MD Work Phone: 3(534)818-685811 [place] [address] 02-24-2025 10:16-0400 Systolic blood pressure 140 mm[Hg] Dr. Litzy Vazquez MD Work Phone: 9(916)359-432671 [address] 12-02-2024 12:59-0400 Body mass index (BMI) [Ratio] 32.4 kg/m2 Dr. Litzy Vazquez MD Work Phone: 0(410)012-004411 [place] [address] 12-02-2024 12:59-0400 Body weight 88.[address] Litzy Vazquez MD Work Phone: 5(767)428-814611 [place] [address] 12-02-2024 12:59-0400 Diastolic blood pressure 82 mm[Hg] Dr. Litzy Vazquez MD Work Phone: [facility] 12-02-2024 12:59-0400 Systolic blood pressure 136 mm[Hg] Dr. Litzy Vazquez MD Work Phone: [facility] 09-21-2024 11:10-0500 Body temperature 98.4 [degF] Dr. Litzy Vazquez MD Work Phone: 6(488)579-358972 [place] [address] 09-21-2024 11:10-0500 Diastolic blood pressure 63 mm[Hg] Dr. Litzy Vazquez MD Work Phone: 4(001)000-975272 [place] [address] 09-21-2024 11:10-0500 Heart rate 101 /min Dr. Litzy Vazquez MD Work Phone: 6(450)715-296471 [address] 09-21-2024 11:10-0500 Respiratory rate 20 /min Dr. Litzy Vazquez MD Work Phone: 0(217)158-546572 [place] [address] 09-21-2024 11:10-0500 SaO2% (BldA) [Mass fraction] 100 % Dr. Litzy Vazquez MD Work Phone: [facility] 09-21-2024 11:10-0500 Systolic blood pressure 113 mm[Hg] Dr. Litzy Vazquez MD Work Phone: [facility] 09-21-2024 07:13-0500 Body mass index (BMI) [Ratio] 35.6 kg/m2 Dr. Litzy Vazquez MD Work Phone: 9(096)329-848072 [place] [address] 09-21-2024 07:13-0500 Body weight 97.[address] Litzy Vazquez MD Work Phone: 2(271)059-078211 [place] [address] 09-21-2024 07:10-0500 Body height 165.[address] Litzy Vazquez MD Work Phone: 3(442)486-895911 [place] [address] 07-29-2024 11:11-0500 Body mass index (BMI) [Ratio] 33.3 kg/m2 Dr. Litzy Vazquez MD Work Phone: 3(875)778-880172 [place] [address] 07-29-2024 11:11-0500 Body weight 90.[address] Litzy Vazquez MD Work Phone: [facility] 07-29-2024 11:11-0500 Diastolic blood pressure 78 mm[Hg] Dr. Litzy Vazquez MD Work Phone: [facility] 07-29-2024 11:11-0500 Systolic blood pressure 134 mm[Hg] Dr. Litzy Vazquez MD Work Phone: 7(420)619-516372 [place] [address] 07-03-2023 09:23-0500 Body height 165.[address] True Vazquez Work Phone: 1(256)255-828471 [address] 07-03-2023 09:22-0500 Body mass index (BMI) [Ratio] 33.6 kg/m2 Dr. True Vazquez Work Phone: 1(198)991-255871 [address] 07-03-2023 09:22-0500 Body weight 91.[address] True Vazquez Work Phone: 0(324)059-080471 [address] 07-03-2023 09:22-0500 Diastolic blood pressure 70 mm[Hg] Dr. True Vazquez Work Phone: 6(931)861-579471 [address] 07-03-2023 09:22-0500 Systolic blood pressure 122 mm[Hg] Dr. True Vazquez Work Phone: 7(000)075-467171 [address] 01-10-2023 11:38-0400 Body height 165.[address] True Vazquez Work Phone: 8(501)915-844571 [address] 01-10-2023 11:28-0400 Body mass index (BMI) [Ratio] 33.6 kg/m2 Dr. True Vazquez Work Phone: 8(354)921-970671 [address] 01-10-2023 11:28-0400 Body weight 91.[address] True Vazquez Work Phone: 2(742)531-803171 [address] 01-10-2023 11:28-0400 Diastolic blood pressure 82 mm[Hg] Dr. True Vazquez Work Phone: 9(510)947-968172 [place] [address] 01-10-2023 11:28-0400 Systolic blood pressure 134 mm[Hg] Dr. True Vazquez Work Phone: [facility] 10-11-2022 11:13-0500 Body height 165.[address] True Vazquez Work Phone: [facility] 10-11-2022 11:05-0500 Body mass index (BMI) [Ratio] 33.5 kg/m2 Dr. True Vazquez Work Phone: [facility] 10-11-2022 11:05-0500 Body weight 91.[address] True Vazquez Work Phone: [facility] 10-11-2022 11:05-0500 Diastolic blood pressure 82 mm[Hg] Dr. True Vazquez Work Phone: [facility] 10-11-2022 11:05-0500 Systolic blood pressure 146 mm[Hg] Dr. True Vazquez Work Phone: [facility] 06-06-2022 10:32-0400 Body height 165.[address] True Vazquez Work Phone: [facility] Work Phone: 06-06-2022 10:21-0400 Body mass index (BMI) [Ratio] 31.9 kg/m2 Dr. True Vazquez Work Phone: [facility] Work Phone: 06-06-2022 10:21-0400 Body weight 87.[address] True Vazquez Work Phone: [facility] Work Phone: 06-06-2022 10:21-0400 Diastolic blood pressure 72 mm[Hg] Dr. True Vazquez Work Phone: [facility] Work Phone: 06-06-2022 10:21-0400 Systolic blood pressure 134 mm[Hg] Dr. True Vazquez Work Phone: [facility] Work Phone: 05-02-2022 03:25-0400 Diastolic blood pressure 78 mm[Hg] Dr. True Vazquez Work Phone: [facility] Work Phone: 05-02-2022 03:25-0400 Heart rate 83 /min Dr. True Vazquez Work Phone: [facility] Work Phone: 05-02-2022 03:25-0400 Respiratory rate 18 /min Dr. True Vazquez Work Phone: [facility] Work Phone: 05-02-2022 03:25-0400 SaO2% (BldA) [Mass fraction] 98 % Dr. True Vazquez Work Phone: [facility] Work Phone: 05-02-2022 03:25-0400 Systolic blood pressure 144 mm[Hg] Dr. True Vazquez Work Phone: [facility] Work Phone: 05-01-2022 23:08-0400 Body height 165.[address] True aVzquez Work Phone: [facility] Work Phone: 05-01-2022 23:08-0400 Body mass index (BMI) [Ratio] 33.2 kg/m2 Dr. True Vazquez Work Phone: [facility] Work Phone: 05-01-2022 23:08-0400 Body temperature 97.7 [degF] Dr. True Vazquez Work Phone: [facility] Work Phone: 05-01-2022 23:08-0400 Body weight 90.[address] True Vazquez Work Phone: [facility] Work Phone: 01-30-2022 11:24-0400 Body height 162.[address] True Vazquez Work Phone: [facility] Work Phone: 01-30-2022 11:24-0400 Body mass index (BMI) [Ratio] 33.3 kg/m2 Dr. True Vazquez Work Phone: [facility] Work Phone: 01-30-2022 11:24-0400 Body weight 88.[address] True Vazquez Work Phone: [facility] Work Phone: 01-30-2022 11:24-0400 Diastolic blood pressure 74 mm[Hg] Dr. True Vazquez Work Phone: [facility] Work Phone: 01-30-2022 11:24-0400 Systolic blood pressure 126 mm[Hg] Dr. True Vazquez Work Phone: [facility] Work Phone: 11-02-2021 11:43-0400 Body mass index (BMI) [Ratio] 34.4 kg/m2 Dr. True Vazquez Work Phone: [facility] Work Phone: 11-02-2021 11:43-0400 Body weight 91.[address] True Vazquez Work Phone: [facility] Work Phone: 11-02-2021 11:43-0400 Diastolic blood pressure 78 mm[Hg] Dr. True Vazquez Work Phone: [facility] Work Phone: 11-02-2021 11:43-0400 Systolic blood pressure 120 mm[Hg] Dr. True Vazquez Work Phone: [facility] Work Phone: 04-11-2017 13:07-0400 BMI (Body Mass Index) 34.59 kg/m2 Stephanie Dacosta MD [facility] Work Phone: 04-11-2017 13:0400 Body Temperature 97.9 [degF] Stephanie Dacosta MD [facility] Work Phone: 04-11-2017 13:07-0400 BP Diastolic 73 mm[Hg] Stephanie Dacosta MD [facility] Work Phone: 04-11-2017 13:07-0400 BP Systolic 117 mm[Hg] Stephanie Dacosta MD [facility] Work Phone: 04-11-2017 [phone] Height 160.02 cm Stephanie Dacosta MD [facility] Work Phone: 04-11-2017 [phone] Pulse (Heart Rate) 60 /min Stephanie Dacosta MD [facility] Work Phone: 04-11-2017 13:07-0400 Respiratory Rate 18 /min Stephanie Dacosta MD [facility] Work Phone: 04-11-2017 13:0400 Weight 88.59 kg Stephanie Dacosta MD [facility] Work Phone: Encounters Encounter Date Encounter Type Care Provider Facility Start: 06-02-2025 End: 06-02-[address] Kiah Guajardo MD -[facility] Work Phone: Start: 06-02-2025 End: 06-02-2025 ambulatory Kiah Guajardo Facility:[facility] Start: 06-02-2025 End: 06-02-2025 Patient encounter procedure Lindsay Rahman MANAGER SALES-C -[facility] [facility] Work Phone: Start: 06-02-2025 End: 06-02-2025 ambulatory Lindsay Rahman NP Facility:[facility] Start: 05-23-2025 End: 05-23-2025 Emergency department patient visit Dr. Litzy Vazquez MD Work Phone: -Emergency Department Work Phone: Start: 05-05-2025 End: 05-05-[address] Litzy Vazquez MD Work Phone: -[facility] Start: 05-05-2025 End: 05-05-[address] Litzy Vazquez MD -[facility] Start: 05-05-2025 End: 05-05-2025 ambulatory Faustino George Facility:[facility] Start: 04-28-2025 End: 04-28-[address] Kiah Guajardo MD -[facility] Work Phone: Start: 04-28-2025 End: 04-28-[address] Litzy Vazquez MD Work Phone: -[facility] Start: 03-31-2025 End: 03-31-[address] [facility] Work Phone: Start: 03-31-2025 End: 03-31-[address] Litzy Vazquez MD Work Phone: -[facility] Start: 03-02-2025 End: 03-02-[address] Litzy Vazquez MD Work Phone: -[facility] [facility] Start: 03-02-2025 End: 03-02-[address] Angelo Arias MD -[facility] Work Phone: Start: 03-02-2025 End: 03-02-2025 ambulatory Litzy Vazquez Facility:[facility] Start: 02-27-2025 End: 02-27-[address] Litzy Vazquez MD Work Phone: -[facility] Start: 02-27-2025 End: 02-27-[address] Angelo Arias MD -[facility] Work Phone: Start: 02-27-2025 End: 02-27-2025 ambulatory Litzy Vazquez Facility:[facility] Start: 02-24-2025 End: 02-24-2025 Patient encounter procedure Lindsay KRUEGER -[facility] Work Phone: Start: 02-24-2025 End: 02-24-[address] Litzy Vazquez MD Work Phone: -[facility] Start: 02-17-2025 Non-patient / Non-visit Dr. Kiah Guajardo MD -[facility] Work Phone: Start: 12-10-2024 ambulatory Litzy Vazquez Faci lity:[facility] Start: 12-02-2024 End: 12-02-2024 Patient encounter procedure Lindsay KRUEGER -[facility] Work Phone: Start: 12-02-2024 End: 12-02-2024 ambulatory Litzy Vazquez Facility:[facility] Start: 10-21-2024 End: 10-21-[address] Litzy Vazquez MD Work Phone: [facility] Work Phone: Start: 10-21-2024 End: 10-21-[address] Litzy Vazquez MD -Outpatient Breast Imaging Work Phone: Start: 10-21-2024 End: 10-21-2024 ambulatory Litzy Vazquez Facility:[facility] Start: 10-08-2024 End: 10-08-[address] Litzy Vazquez MD -Outpatient Bone Densitometry Work Phone: Start: 10-08-2024 End: 10-08-2024 ambulatory Litzy Vazquez Facility:[facility] Start: 09-21-2024 End: 09-21-2024 Emergency department patient visit Dr. Haseeb Rowe-Dev [facility] -Emergency Department Work Phone: Start: 07-29-2024 End: 07-29-2024 Patient encounter procedure Lindsay KRUEGER -[facility] Work Phone: Start: 07-29-2024 End: 07-29-2024 ambulatory Litzy Vazquez Facility:[facility] Start: 06-12-2024 End: 06-12-2024 ambulatory Litzy Vazquez Facility:[facility] Start: 06-07-2024 End: 06-10-2024 ambulatory [facility]HA [facility] Start: 08-09-2023 End: 08-09-[address] True Vazquez Work Phone: [facility] Work Phone: Start: 08-09-2023 End: 08-09-[address] True Vazquez Work Phone: [facility] Start: 07-03-2023 End: 07-03-[address] True Vazquez Work Phone: [facility] Work Phone: Start: 04-10-2023 End: 04-10-[address] True Vazquez Work Phone: [facility] Work Phone: Start: 04-10-2023 End: 04-10-[address] True Vazquez Work Phone: [facility] Start: 01-10-2023 End: 01-10-[address] True Vazquez Work Phone: [facility] Work Phone: Start: 01-01-2023 End: 01-01-[address] True Vazquez Work Phone: [facility] Start: 10-17-2022 End: 10-17-[address] True Vazquez Work Phone: [facility] Work Phone: Start: 10-17-2022 End: 10-17-[address] True Vazquez Work Phone: [facility] Start: 10-11-2022 End: 10-11-[address] True Vazquez Work Phone: [facility] Start: 10-04-2022 End: 10-04-[address] True Vazquez Work Phone: [facility] Work Phone: Start: 10-04-2022 End: 10-04-[address] True Vazquez Work Phone: [facility]-Outpatient Bone Densitometry Start: 10-03-2022 End: 10-03-[address] True Vazquez Work Phone: [facility] Start: 08-08-2022 End: 08-08-[address] True Vazquez Work Phone: [facility] Work Phone: Start: 08-08-2022 End: 08-08-[address] True Vazquez Work Phone: [facility] Start: 06-06-2022 End: 06-06-[address] True Vazquez Work Phone: [facility] Start: 05-01-2022 End: 05-02-2022 Emergency department patient visit Dr. True Vazquez Work Phone: [facility]-Emergency Department Start: 05-01-2022 End: 05-02-2022 Non-patient / Non-visit Dr. True Vazquez Work Phone: [facility] Start: 02-01-2022 End: 02-01-[address] [facility] Start: 01-30-2022 End: 01-30-[address] True Vazquez Work Phone: [facility] Start: 11-02-2021 End: 11-02-[address] True Vazquez Work Phone: [facility] Start: 03-13-2017 End: 03-15-2017 Ambulatory MEENA [facility] Start: 03-13-2017 End: 03-21-2017 Ambulatory BRAVO DANIEL [facility] Start: 03-08-2017 End: 03-08-2017 Ambulatory MEENA (FEL) [facility] Procedures Date Procedure Procedure Detail Performing Clinician Start: 05-23-2025 Urnls dip stick/tabl et reagent auto microscopy Dr. Litzy Vazquez MD Work Phone: Start: 05-23-2025 Plain chest X-ray Dr. Aakash Vazquez MD Work Phone: Start: 05-23-[address] Litzy Vazquez MD Work Phone: Start: 05-23-2025 Ct abdomen & pelvis w/contrast material Dr. Litzy Vazquez MD Work Phone: Start: 05-23-2025 CT of head without contrast Dr. Litzy Vazquez MD Work Phone: Start: 05-23-2025 SARS-CoV-2, Influenz a & RSV (PCR) Dr. Litzy Vazquez MD Work Phone: Start: 10-21-[address] Darek Vazquez MD [...] Treatment Date Care Activity Detail Author Start: 05-23-2025 [facility] Start: 04-11-2017 End: 04-11-2017 Appointment [facility] Work Phone: Patient Education [facility] Work Phone: Patient referral [facility] Work Phone: [facility] Immunizations Immunization Date Immunization Notes Care Provider Elen gonsales 05-07-2018 influenza, injectabl e, quadrivalent, preservative free Dr. True Vazquez Work Phone: [facility] 05-07-2018 influenza, seasonal, injectable Dr. True Vazquez Work Phone: [facility] 05-20-[address] True Vazquez Work Phone: [facility] 06-03-[address] True Vazquez Work Phone: [facility] 06-21-[address] Long Vazquez Work Phone: [facility] Work Phone: 06-21-2011 pneumococcal vaccine , unspecified formulation Dr. True Vazquez Work Phone: [facility] Payers Date Payer Category Payer Self-pay [id number] 2024 Unknown [id number] 22 [id number] 2013 Medicare [id number] 1945 Unknown [id number] 2.16.8 [id number] Unknown [id number] 2.16.8 [id number] Unknown [id number] 2.16.8 [id number] Unknown [id number] 2.16.8 [id number] Unknown [id number] 2.16.8 [id number] Unknown [id number] 2.16.8 [id number] Unknown [id number] 2.16.8 [id number] Unknown [id number] 2.16.8 [id number] Unknown [id number] 2.16.8 [id number] Unknown [id number] 2.16.8 [id number] Unknown [id number] 2.16.8 [id number] Unknown [id number] 2.16.8 [id number] Unknown [id number] 2.16.8 [id number] Unknown [id number] 2.16.8 [id number] Unknown [id number] 2.16.8 [id number] Unknown [id number] 2.16.8 [id number] Unknown [id number] 2.16.8 [id number] Social History Date Type Detail Facility Start: 01-30-2022 End: 07-03-2023 Tobacco smoking status NHIS Unknown if ever smoked [facility] Start: 02-01-2021 None [facility] Start: 02-01-2021 Homeless [facility] Start: 02-01-2021 Non-smoker [facility] Start: 1945 Sex Assigned At Female [facility] Start: 09-21-2024 End: 05-23-2025 Tobacco smoking status NHIS Never smoked tobacco (finding) [facility] Start: 11-02-2024 Sex Female (finding) [facility] Sex Female [facility] Mental Status Date Assessment Result Facility 05-01-2022 Cognitive function Level Of Cons ciousness Awake;Alert;Appropriate;Follow s Commands [facility] Work Phone: Clinical Notes 06-08-2024 to 06-02-2025 Note Date & Type Note Facility 06-02-2025 Progress note [facility] 06-02-2025 Progress note [facility] 05-23-2025 Discharge summary [facility] 05-23-2025 Radiology Diagnostic study note [facility] Imaging Services [address] [place] [address] Abdomen/Pelvis W IV Cont ONLY MR#: [id number] Acct: [id number] Name: SINDY SWEENEY Rep #: [id number] : 1945 F 79 From: Sanaz Morris MD PCP: Dr. Litzy Vazquez MD Status: REG ER Study:Abdomen/Pelvis W IV Cont ONLY Date of E xam: 05/23/25 Exam# [id number] Ordering Dr: Ana Maria Lerma DO PROCEDURE: ABDOMEN/PELVIS W IV CONT ONLY 05/23/2025 REASON FOR EXAM: DIFFUSE ABDOMINAL PAIN, VOMITING AND DIARRHEA TECHNIQUE: Procedure Code: CTABDPELIV Modality: CT Procedure: ABDOMEN/PELVIS W IV CONT ONLY Coronal and Sagittal reconstruction series were provided. CONTRAST: Isovue 370 VOLUME: 100 mL One or more dose reduction techniques were used (e.g., Automated exposure control, adjustment of the mA and/or kV according to patient size, use of iterative reconstruction technique. RADIATION DOSE SUMMARY: CTDlvol: 39.20 mGy DLP: 1748.89 mGycm COMPARISON: None FINDINGS: Lung bases: Chronic interstitial changes with compressive atelectasis in the left lung base due to a prominent hiatal hernia Liver: Normal size. No mass. Gallbladder: Surgically absent. Spleen: Normal size. Pancreas: Normal size without evidence of mass surrounding inflammation or ductal dilation. Adrenals: Unremarkable Kidneys: No obstructive uropathy or suspicious solid renal lesion. Bladder: Unremarkable Reproductive Organs: The uterus present, the endometrium can not be accurately evaluated with CT. No suspicious cystic mass or free fluid, there is a pessary noted Bowel: No obstruction or acute inflammation. Diffuse colonic diverticulosis without CT evidence of acute diverticulitis. Appendix: Appendix seen on coronal recon images 40 through 45 Lymph nodes: No suspicious mesenteric or retroperitoneal adenopathy Vasculature: Peripheral calcifications in the abdominal aorta without aneurysm. Peritoneum / Retroperitoneum: No free fluid or air Bones: Degenerative bony changes, replaced hip joints free of complication. CT/Abdomen/Pelvis W IV Cont ONLY IMPRESSION: No suspicious solid organ abnormality, intrahepatic biliary dilatation likely sequela from previous cholecystectomy Uterus is present, the endometrium can not be accurately evaluated with CT. No free intraperitoneal fluid, air, or suspicious adenopathy Prominent retrocardiac hiatal hernia Degenerative bony changes Reading Location: [id number] CC: Dr. Litzy Vazquez MD; Dr. Carloz Lerma DO ~ Therapeutic Specialist: Signed [facility] 05-23-2025 Radiology Diagnostic study note [facility] Imaging Services [address] [place] [id number] Brain/Head without Contrast MR#: [id number] Acct: [id number] Name: SINDY SWEENEY Rep #: [id number] : 1945 F 79 From: Sanaz Morris MD PCP: Dr. Litzy Vazquez MD Status: REG ER Study:Brain/Head without Contrast Date of Exa m: 05/23/25 Exam# [id number] Ordering Dr: Ana Maria Lerma DO PROCEDURE: BRAIN/HEAD WITHOUT CONTRAST 05/23/2025 REASON FOR EXAM: HEADACHE TECHNIQUE: Procedure Code: CTBR Modality: CT Procedure: BRAIN/HEAD WITHOUT CONTRAST Coronal and Sagittal reconstruction series were provided. One or more dose reduction techniques were used (e.g., Automated exposure control, adjustment of the mA and/or kV according to patient size, use of iterative reconstruction technique. RADIATION DOSE SUMMARY: CTDlvol: 44.99 mGy DLP: 796.11 mGycm COMPARISON: None FINDINGS: Age consistent periventricular and deep white matter changes with remote basal ganglia infarcts. No acute hemorrhage midline shift or mass effect. Hyperostosis frontalis is noted which may be due to medication. No skull fracture or scalp hematoma, mucosal thickening in the ethmoid sinuses.. Evidence of previous cataract surgery CT/Brain/Head without Contrast IMPRESSION: Age consistent changes, no acute findings Ethmoid sinusitis Reading Location: [id number] CC: Dr. Litzy Vazquez MD; Dr. Carloz Lerma DO ~ Therapeutic Specialist: Signed [facility] 05-23-2025 Radiology Diagnostic study note [facility] Imaging Services [address] [place] [address] Chest 1 View (Portable) MR#: [id number] Acct: [id number] Name: SINDY SWEENEY Rep #: [id number] : 1945 F 79 From: Kvng Jordan MD PCP: Dr. Litzy Vazquez MD Status: REG ER Study:Chest 1 View (Portable) Date of Exam: 05/23/25 Exam# [id number] Ordering Dr: Ana Maria Lerma DO PROCEDURE: CHEST 1 VIEW (PORTABLE) 05/23/2025 REASON FOR EXAM: PALPITATIONS/CHEST PAIN TECHNIQUE: Frontal view of the chest. COMPARISON: None available. FINDINGS: Hardware: The support lines and tubes are in stable and satisfactory position. Heart: The heart size is normal. Lungs: The lungs are clear. No pneumothorax or pleural effusion. Bones: The bones are unremarkable. RAD/Chest 1 View (Portable) IMPRESSION: No Acute Findings. Reading Location: [facility] CC: Dr. Litzy Vazquez MD; Dr. Carloz Lerma DO ~ Therapeutic Specialist: Signed [facility] 05-23-2025 Discharge summary Note Date/Time May 23, 2025 10:34pm [facility] Medical Records Department [address] [place] [address] Emergency Department Summary 05/23/25 MR#: [id number] Acct: [id number] Name: SINDY SWEENEY Rep #:[id number] : 1945 79 From: Carloz Pepper PCP: Dr. Litzy Vazquez MD Status :REG ER Location: ED HPI History of Present Illness Chief Complaint: Nausea/Vomiting/Diarrhea [facility] Medical History Urge incontinence Nocturia Knee injury Incontinence Phlebitis and thrombophlebitis of superficial vessels of lower extremities, bilateral Emphysema lung Anxiety Colonoscopy planned Home Medications ?Medication ?Instructions ?Recorded ?Last Taken ?Type acetaminophen 500 mg tablet 1,000 mg PO BID PRN Pain 0 7/21/15 03/06/19 History albuterol sulfate 90 mcg/actuation 1 puff inhalation Q 4H PRN PRN Sob 12/31/16 10/21/18 History aerosol inhaler &/Or Wheezing buspirone 10 mg tablet 10 mg PO TID 08/27/18 History esomeprazole magnesium 20 mg 40 mg PO DAILY 10/23/18 0 10/23/18 History capsule,delayed release clotrimazole-betamethasone 1 1 applic topical BID 2 we eks #45 07/12/20 Unknown Rx %-0.05 % topical cream grams warfarin 1 mg tablet See Rx Instructions PO DAILY 10/27/20 Unknown History fluticasone propionate 50 2 spray inhalation DAILY PRN 11/02/21 Unknown History mcg/actuation nasal spray,suspension guaifenesin 600 mg tablet, 600 mg PO QDAY 11/02/21 Unk nown History extended release 12 hr (Mucinex) magnesium 30 mg tablet 30 mg PO DAILY 11/02/21 Unkn own History polyethylene glycol 3350 17 17 g PO DAILY PRN 11/02/21 Unknown History gram/dose oral powder (Miralax) mirabegron 50 mg tablet,extended 50 mg PO DAILY Unknown History release 24 hr (Myrbetriq) ascorbate calcium (vitamin C) 500 500 mg PO DAILY 09/20 12/10 Unknown History mg tablet calcium amino acid chelate mg PO 03/31/25 Unknown Hist ory cholecalciferol (vitamin D3) 625 625 mcg PO QWEEK 03/20 10/14 Unknown History mcg (25,000 unit) capsule denosumab 60 mg/mL subcutaneous 60 mg subcut [id number] 03/31/25 Unknown History syringe (Prolia) fesoterodine 8 mg tablet,extended 8 mg PO QDAY 5 Unknown History release 24 hr mecobalamin (vitamin B12) 1,000 1,000 mcg PO QDAY 03/20 10/14 Unknown History mcg chewable tablet Allergy/AdvReac Type Severity Reaction Status Date / Time latex AdvReac Rash Verified 02/24/25 10:15 Family History Father Lung cancer Surgical History Hx of cholecystectomy History of hip replacement Social History Smoking Status: Never smoker alcohol intake: never substance use type: does not use caffeine: Yes what type of physical activity do you participate in: none seatbelt use: always do you feel safe at home: Yes additional social history: - Max EXAM Physical Exam Const Vital Signs: 05/23/25 18:21 05/23/25 18:25 05/23/25 20:29 Temperature 98.9 F Temperature Source Oral Pulse Rate 87 94 Respiratory Rate 16 20 H Blood Pressure 148/64 H 149/58 H Blood Pressure Mean 92 88 Pulse Ox 97 97 Oxygen Delivery Method Room Air Room Air 05/23/25 22:00 Temperature Temperature Source Pulse Rate 84 Respiratory Rate 19 H Blood Pressure 149/65 H Blood Pressure Mean 93 Pulse Ox 96 Oxygen Delivery Method Room Air MDM MDM MDM Narrative Medical decision making narrative: HISTORY OF PRESENT ILLNESS: Chief complaint: Nausea vomiting diarrhea 79-year-old female history of obesity, UTI, DVT (on warfarin) and asthma presents with 2 days of nausea vomiting diarrhea. She notes symptoms have progressed to "sinus issues". She also notes headache, elevated blood pressure as well as "flutters in my chest". She states she started with vomiting and diarrhea. The vomiting is since resolved but she still has 3-4 episodes of watery stools per day. Denies any blood in her stool. Notes diffuse muscle aches also notes diffuse abdominal pain. She notes since her vomiting has stopped she developed a severe headache. She denies any falls or trauma. She also notes today she developed left-sided chest pain and palpitations. She notes compliance with warfarin. She denies any urinary complaints. She denies reports history of a cholecystectomy but otherwise denies history of other abdominal surgeries. She denies any sick contacts. Denies any recent travel orantibiotics. She denies any PE risk factors. Denies any aortic dissection riskfactors REVIEW OF SYSTEMS: Pertinent positives: Nausea, vomiting, diarrhea, headache, palpitation Pertinent negatives: Focal weakness, loss of sensation, dysuria, hematuria, frequency or urgency PHYSICAL EXAM: Nursing triage notes reviewed, Vital signs reviewed Constitutional: please see mdm HENT: MMM Eyes: Pupils equal round and reactive to light, Extraocular muscles intact Neck: No stridor, no JVD, full neck ROM Lungs: Clear to auscultation, No wheezing or rales. No increased work of breathing, no conversational dyspnea, no accessory muscle use, no nasal flaring. No respiratory distress noted Heart: Regular rate and rhythm, No murmurs, No rubs and No gallops, 2+ distal pulses (radial, femoral, posterior tibial) in all extremities Abdomen: Soft, there is no tenderness, rigidity, rebound or guarding, no obviousperitoneal signs, no palpable pulsatile abdominal masses, no auscultated abdominal bruit : No CVAT Extremities: No edema Neuro: No new focal neurological deficits, cranial nerves II through XII intact,5/5 strength in all present extremities. Intact sensation to light touch in all present extremities, 2+ reflexes bilateral patella tendons. Skin: No rash or lesions noted MEDICAL DECISION MAKING: Chief Complaint: please see HPI External records reviewed: Reviewed prior imaging studies Factors affecting care: As per HPI Social determinants of health: elderly History obtained from others: Daughter Consults: none [facility] Narrative: The patient was initially hemodynamically stable, afebrile and nontoxic-appearing. Exam without focal neurologic deficits. No focal cardiopulmonary abnormalities. Abdomen was diffusely tender but was not distended with no peritoneal sign I considered the following differential diagnosis: ICH, arrhythmia, anemia, pneumonia, electrolyte disturbance, dehydration, acute kidney injury, abdominal perforation obstruction, viral illness I obtained a broad lab and imaging work to further determine if the patient was suffering from a life-threatening etiology. Initially treated the patient with 500 cc IV fluid bolus and Reglan for headacheand nausea control. ALL IMAGES (IF OBTAINED) HAVE BEEN PERSONALLY REVIEWED AND INTERPRETED BY MYSELF. EKG with normal sinus rhythm, rate of 86, right axis deviation, right bundle branch block, no obvious STEMI. Similar to prior EKG noted from September 2024 High-sensitivity troponin is negative, no evidence of myocardial ischemia x 2 (ACS ruled out based on [facility] high-sensitivity troponin protocol) CBC with no leukocytosis, noted mild anemia (improved from baseline) but no thrombocytopenia was noted INR therapeutic at 2.1 BMP without evidence of significant electrolyte abnormalities, no anion gap, no acute kidney injury. LFTs show no evidence of hepatobiliary pathology. Lipase is wnl indicating no pancreatic inflammation. Urinalysis with signs of inflammation but no definitive sign of UTI. Low suspicion for UTI given lack of symptoms COVID/RSV/flu negative I have personally reviewed the patient's chest x-ray. Chest x-ray is unremarkable for pulmonary edema, pneumothorax, pneumonia or focal cardiopulmonary abnormality. CT scan of the brain was negative for ICH CT scan of the abdomen pelvis was negative for signs of surgical emergencies in the abdomen including perforation or obstruction The synthesis of the patient's history, physical exam, labs images suggest no acute life or limb threatening etiology. Patient is likely suffering from a viral gastroenteritis. Will give symptomatic nausea vomit control in the form of Compazine which also double as headache/migraine control. Give strict returnprecautions. Patient know she has a follow with her PCP on Sunday. Encouragedto keep this appointment The patient and/or family, caregivers express understanding. The patient and/orfamily, caregivers agrees with the plan. Shared decision making: I will have a discussion with the patient and or visitors regarding risk/benefits of further testing or admission. They will be made aware of of the risk/benefits inherent in this decision they will be given the opportunity to voice understanding. Total critical care time today provided was at least 0 minutes. This excludes separately billable procedures. Critical care time (if documented) is secondary to the patient having high probability of clinically significant/life threatening deterioration in the patient's condition which required my urgent intervention. Impression: 1. Headache 2. Palpitations 3. Abdominal pain 4. Nausea/vomiting and diarrhea Dispo: Discharge home This note was generated with DidLog dictation software. It may contain incorrectwords, spelling, and punctuation that were not noted in review of the chart prior to signing. Lab Data Labs: Laboratory Results - last 24 hr 05/23/25 05/23/25 05/23/25 19:35 20:28 21:33 WBC 8.0 RBC 3.86 L Hgb 11.5 L Hct 35.9 L MCV 93.0 MCH 29.8 MCHC 32.0 RDW Std Deviation 63.1 H RDW Coeff of Sam 18.6 H Plt Count 160 MPV 9.9 Immature Gran % (Auto) 0.300 Neut % (Auto) 80.4 H Lymph % (Auto) 4.7 L Lewis % (Auto) 14.2 H Eos % (Auto) 0.3 Baso % (Auto) 0.1 Absolute Neuts (auto) 6.4 Absolute Lymphs (auto) 0.37 L Nucleated RBC % 0 PT 24.0 H INR 2.1 Sodium 135 Potassium 3.9 Chloride 100 Carbon Dioxide 22.7 Anion Gap 13 BUN 11 Creatinine 0.82 Estim Creat Clear Calc 60.41 Est GFR (MDRD) Non-Af 72 BUN/Creatinine Ratio 13.8 Glucose 102 H Calcium 8.7 Total Bilirubin 0.62 AST 20 ALT 10 Alkaline Phosphatase 55 Troponin T High Sens 14 Troponin T Hi Sens 2 Hr 15 H Total Protein 6.2 Albumin 3.6 Globulin 2.6 Albumin/Globulin Ratio 1.4 Lipase 13 Urine Color Yellow Urine Clarity Clear Urine pH 6.0 Ur Specific Calvin 1.020 Urine Protein 30 H Urine Glucose (UA) 1000 H Urine Ketones Negative Urine Occult Blood 250 H Urine Nitrite Negative Urine Bilirubin Negative Urine Urobilinogen Normal Ur Leukocyte Esterase 500 H Urine RBC 10-25 SEEN Urine WBC 5-10 SEEN Ur Squamous Epith Cells 0-5 SEEN Urine Bacteria 1+ Urine Mucus 0 SEEN Radiography Diagnostic Testing: Clinical Impression(s) from Imaging Studies Abdomen/Pelvis CT 05/23/25 18:56 IMPRESSION: No suspicious solid organ abnormality, intrahepatic biliary dilatation likely sequela from previous cholecystectomy Uterus is present, the endometrium can not be accurately evaluated with CT. No free intraperitoneal fluid, air, or suspicious adenopathy Prominent retrocardiac hiatal hernia Degenerative bony changes Reading Location: [facility] Brain CT 05/23/25 18:56 IMPRESSION: Age consistent changes, no acute findings Ethmoid sinusitis Reading Location: [facility] Chest X-Ray 05/23/25 19:52 IMPRESSION: No Acute Findings. Reading [facility] Discharge Plan Triage Chief Complaint: Nausea/Vomiting/Diarrhea ED Provider: Carloz Lerma Dx/Rx/DC Orders Prescriptions: No Action buspirone 10 mg tablet 10 mg PO TID clotrimazole-betamethasone 1-0.05 % cream 1 applic TOPICAL BID 14 Days Qty: 45 1RF warfarin 1 mg tablet See Rx Instructions PO DAILY Rx Instructions: 2mg m-w-f, 2.5mg other days PO daily; guaifenesin [Mucinex] 600 mg tablet extended release 12hr 600 mg PO QDAY magnesium 30 mg tablet 30 mg PO DAILY polyethylene glycol 3350 [Miralax] 17 gram/dose powder 17 g PO DAILY PRN Myrbetriq 50 mg tablet extended release 24 hr 50 mg PO DAILY ascorbate calcium (vitamin C) 500 mg tablet 500 mg PO DAILY Prolia 60 mg/mL syringe 60 mg subcut [id number] mecobalamin (vitamin B12) 1,000 mcg tablet,chewable 1,000 mcg PO QDAY fesoterodine 8 mg tablet extended release 24 hr 8 mg PO QDAY cholecalciferol (vitamin D3) 625 mcg (25,000 unit) capsule 625 mcg PO QWEEK calcium amino acid chelate 200 mg calcium tablet PO acetaminophen 500 MG tablet 1,000 mg PO BID PRN (Reason: Pain) Patient Comments: pain albuterol sulfate 1 INHALER inhaler 1 puff inhalation Q4H PRN PRN (Reason: Sob &/Or Wheezing) Patient Comments: breathing esomeprazole magnesium 20 MG capsule 40 mg PO DAILY fluticasone propionate 50 mcg/actuation spray,suspension 2 spray inhalation DAILY PRN Primary Care Provider: Litzy Vazquez Referrals: Litzy Vazquez MD [Primary Care Provider, Family Practice] Print Language: Brazilian What to do if you have Problems For any increased pain, shortness of breath, bleeding, nausea or vomiting, chestpain, or any unexpected problems, contact your Primary Care Provider. Call [facility] ([phone]) or report to the closest Emergency Room. Call 911 if necessary. 05/23/252233 <Electronically signed by Carloz Lerma DO> Cosigner Signature (if applicable): CC: Dr. Litzy Vazquez MD ~ Signed [facility] Work Phone: 1(977) 437-724207-08-2025 Evaluation note* Diagnosis Onset Date Resolution Status Admit Date Cystocele and rectocele with incomplete uterovaginal prolapse acute February 24, 2025 1 0:13am Pessary maintenance acute February 24, 2025 10:13am Nocturia acute March 31, 025 12:52pm Urge incontinence acute March 31, 2025 12:52pm Nocturia acute April 28, 2025 10:25am Urge incontinence acute Septemb er 2024 10:25am [facility] Work Phone: [phone] Evaluation note* Diagnosis Onset Date Resolution Status Admit Date Cystocele and rectocele with incomplete uterovaginal prolapse acute February 24, 2025 1 0:13am Pessary maintenance acute February 24, 2025 10:13am Nocturia acute March 31, 025 12:52pm Urge incontinence acute March 31, 2025 12:52pm Nocturia acute April 28, 2025 10:25am Urge incontinence acute Septemb er 2024 10:25am Cystocele and rectocele with incomplete uterovaginal prolapse acute June 02 9:38am Pessary maintenance acute Octob er 2024 9:38am Incontinence chronic May 9:38am Nocturia acute June 02, 2025 10:47am Urge incontinence acute June 02, 2025 10:47am [facility] Work Phone: 1([phone]) 671-308804-15-2025 Evaluation note* Diagnosis Onset Date Resolution Status Admit Date Cystocele and rectocele with incomplete uterovaginal prolapse acute December 02, 2024 12:57pm Pessary maintenance acute December 02, 2024 12:57pm [facility] Work Phone: 1([phone]) 839-471304-15-2025 Evaluation note* Diagnosis Onset Date Resolution Status Admit Date Cystocele and rectocele with incomplete uterovaginal prolapse acute December 02, 2024 12:57pm Pessary maintenance acute December 02, 2024 12:57pm Cystocele and rectocele with incomplete uterovaginal prolapse acute February 24, 2025 10:13am Pessary maintenance acute February 24, 2025 10:13am [facility] Work Phone: [phone] Evaluation note* Diagnosis Onset Date Resolution Status Admit Date Cystocele and rectocele with incomplete uterovaginal prolapse acute December 02, 2024 12:57pm Pessary maintenance acute December 02, 2024 12:57pm Cystocele and rectocele with incomplete uterovaginal prolapse acute February 24, 2025 1 0:13am Pessary maintenance acute February 24, 2025 10:13am Nocturia acute March 31, 2 025 12:52pm Urge incontinence acute March 31, 2025 12:52pm [facility] Work Phone: 1([phone] 122-532503-04-2025 Radiology Diagnostic study note [facility] Imaging Services [address] [place] [address] Breast Complete Unilateral MR#: [id number] Acct: [id number] Name: SINDY SWEENEY Rep #: [id number] : 1945 F 79 From: Lily Mcneill MD PCP: Dr. Litzy Vazquez MD Status: REG CLI Study:Breast Complete Unilateral Date of Exam : 10/21/24 Exam# [id number] Ordering Dr: Aakash Vazquez MD PROCEDURE: DIAG [...] SCREENING. Follow-up code: Routine Follow-up Reading Location: [id number] CC: Dr. Litzy Vazquez MD ~ Therapeutic Specialist: Signed [facility]12-10-2024 Evaluation note* Diagnosis Onset Date Resolution Status Admit Date Cystocele and rectocele with incomplete uterovaginal prolapse acute July 29, 024 11:08am Pessary maintenance acute Decem 2023 11:08am Incontinence chronic July 11:08am [facility] Work Phone: 1(365) 346-477310-23-2024 [facility] ACCOUNT SEX AGE ADMIT DISCHARGE PT MED. RECORD# NUMBER DATE DATE TYPE ZAHRA [id number] F 78 06/07/24 2 SINDY [place] [id number] ROOM: 302MO DATE OF : 41 DICTATING PHYSICIAN: uYniel Noble CHIEF COMPLAINT ON ADMISSION: Fatigue. HISTORY [...] SWEENEY History & Physical SINDY SWEENEY :1945 [employer]. She does not smoke nor drink alcohol. [...] relaxer and also acetamin (more content not included)...[facility]10-20-2024 NoteDischarge Instructions Discharge Summary [address] [address] [id number] 06/07/2024 Patient: SINDY SWEENEY Sex: Female : 1945 Age: 78y Thank you for visiting [facility]. You have been evaluated today by Gibson Thrasher D.O. for the following condition(s): Principal Diagnosis Severe hyponatremia You have been given the following additional information: Hyponatremia Patient Signature Facility [employer] Conveyor Tender Date/Time General Instructions with ExitWriter [address] [place] [address] [phone] 06/07/2024 Patient: SINDY SWEENEY Sex: Female : 1945 Age: 78y 1 of 3 Discharge Instructions Thank you for visiting [facility]. You have been evaluated today by Gibson [...] consciousness Seizure 3 [facility] 3[facility] Diagnosis Onset Date Resolution Status Cystocele and rectocele with incomplete uterovaginal prolapse acute Pessary maintenance acute Cystocele and rectocele with incomplete uterovaginal prolapse acute Pessary maintenance acute [facility] Work Phone: Evaluation note* Diagnosis Onset Date Resolution Status Cystocele and rectocele with incomplete uterovaginal prolapse acute Pessary maintenance acute [facility] Work Phone: Evaluation note* Diagnosis Onset Date Resolution Status Cystocele and rectocele with incomplete uterovaginal prolapse acute Pessary maintenance acute Bacterial vaginosis noneacti ve Cystocele and rectocele with incomplete uterovaginal prolapse acute Pessary maintenance acute [facility] Work Phone: Evaluation note* Diagnosis Onset Date Resolution Status Cystocele and rectocele with incomplete uterovaginal prolapse acute Pessary maintenance acute Incontinence chronic [facility] Work Phone: Hospital Discharge instructions Additional Instructions As discussed, please consider talking to Dr. Vazquez about a Holter monitor. This would be a 48-hour heart monitor that may catch any episodes of dizziness and feeling as if you are going to pass out.[facility] Work Phone: Hospital Discharge instructionsAdditional Instructions Thank you for trusting us with your care today! Your labs images are reassuring. Specifically the CT scans of your head, abdomen pelvis and x-ray did not reveal any abnormalities. Your labs did not show signs of significant dehydration, electrolyte abnormalities. Your warfarin level was within normal limits. He did not have signs of COVID flu or RSV. Do not have signs of heart damage or abnormal heart rhythms. Please take Tylenol (2 pills, 650 mg), ibuprofen (2 pills, 400 mg) every 6 hours as needed for pain and fever control. Please take Compazine as needed for nausea vomiting control at home Please return to the emergency department if your symptoms change or worsen. Please follow with your primary care physician for further outpatient evaluation and management.[facility] Work Phone: Progress note Author Lindsay Rahman [facility] Note Date/Time June 02, 2025 9 :59am [facility] [address], [address] [place] [address] OFFICE VISIT Date of Service: 06/02/25 MR#: [id number] Acct: [id number] Name: SINDY SWEENEY Rep #: [id number] : 1945 Provider: PATI Rahman Age/Sex: 79/F Location[place] [facility] Status: Signed Intake Vital Signs 02/24/25 10:22 05/23/25 18:21 06/02/25 09:41 06/02/25 09:49 Height 5 ft 5 in 5 ft 5 in 5 ft 5 in 5 ft 5 in Weight: 190 lb BMI 31.6 BP 133/74 H Intake Visit Reasons: Pessary Check Bronze Chaser Required: No Is patient in pain?: No Allergies latex Adverse Reaction (Verified 06/02/25 09:41) Rash Medications ?Medication ?Instructions ?Recorded ?Confirmed ?Type acetaminophen 500 mg tablet 1,000 mg PO BID PRN Pain 0 03/09/15 06/02/25 History albuterol sulfate 90 mcg/actuation 1 puff inhalation Q 4H PRN PRN Sob 12/31/16 06/02/25 History aerosol inhaler &/Or Wheezing buspirone 10 mg tablet 10 mg PO TID 08/27/18 History esomeprazole magnesium 20 mg 40 mg PO DAILY 10/23/18 1 History capsule,delayed release clotrimazole-betamethasone 1 1 applic topical BID 2 we eks #45 07/12/20 06/02/25 Rx %-0.05 % topical cream grams warfarin 1 mg tablet See Rx Instructions PO DAILY 10/27/20 06/02/25 History fluticasone propionate 50 2 spray inhalation DAILY PRN 11/02/21 06/02/25 History mcg/actuation nasal spray,suspension guaifenesin 600 mg tablet, 600 mg PO QDAY 11/02/21 History extended release 12 hr (Mucinex) magnesium 30 mg tablet 30 mg PO DAILY 11/02/2105/20 History polyethylene glycol 3350 17 17 g PO DAILY PRN 11/02/21 06/02/25 History gram/dose oral powder (Miralax) mirabegron 50 mg tablet,extended 50 mg PO DAILY 06/02/25 History release 24 hr (Myrbetriq) ascorbate calcium (vitamin C) 500 500 mg PO DAILY 09/2006/02/25 History mg tablet calcium amino acid chelate mg PO 03/31/25 06/02/25 His tory cholecalciferol (vitamin D3) 625 625 mcg PO QWEEK 03/2006/02/25 History mcg (25,000 unit) capsule denosumab 60 mg/mL subcutaneous 60 mg subcut [id number] 03/31/25 06/02/25 History syringe (Prolia) fesoterodine 8 mg tablet,extended 8 mg PO QDAY 5 06/02/25 History release 24 hr mecobalamin (vitamin B12) 1,000 1,000 mcg PO QDAY 03/2006/02/25 History mcg chewable tablet prochlorperazine maleate 5 mg 5 mg PO TID PRN headache 3 days 10/04/25 10/14/25 Rx tablet (Compazine) #10 tabs Is last menstrual period known: No Post menopausal: Yes Patient : No : No PFSH Medical History Urge incontinence Nocturia [...] who presents for pessary check. Denies concerns with pessary. History 2 Elective abortions Hx Para 2 [...] type: urinary Urinary Incontinence type: stress incontinence Assessment and Plan Assessment and Plan (1) Pessary maintenance: Status: Acute Comment: #3 ring with support and knob (2) Cystocele and rectocele with incomplete uterovaginal prolapse: Status: Acute Comment: stable (3) Incontinence: Status: Chronic Qualifiers: Incontinence type: urinary Urinary Incontinence type: stress incontinence Qualified Code(s): N39.3 - Stress incontinence (female) (male) Comment: See Dr Guajardo Plan Reviewed S&S infection RTO end of July Plan Details Follow Up: end july (pessary check) 06/02/25 0959 <Electronically signed by Lindsay jack NP MANAGER SALES-C> Date _ Lindsay Rahman NP MANAGER SALES-C Cosigner Signature: Date (if applicable) CC: ~ [facility] Work Phone: [employer] note Author Kiah Guajardo [facility] Note Date/Time June 02, 2025 1 2:02pm [facility] [address], [address] [place] [address] OFFICE VISIT Date of Service: 06/02/25 MR#: [id number] Acct: [id number] Name: SINDY SWEENEY Rep #: [id number] : 1945 Provider: Dr. Andrea Guajardo MD Age/Sex: 79/F [place] [facility]: Signed Intake Vital Signs 03/31/25 13:29 05/23/25 18:21 06/02/25 09:49 06/02/25 11:11 Height 5 ft 5 in 5 ft 5 in 5 ft 5 in 5 ft 5 in Weight: 190 lb BMI 31.6 BP 134/82 H Pulse 62 Temp 98 F Intake Visit Reasons: ptns Chief Complaint: PTNS treatment Bronze Chaser Required: No Is patient in pain?: No Allergies latex Adverse Reaction (Verified 06/02/25 09:41) Rash Medications ?Medication ?Instructions ?Recorded ?Confirmed ?Type acetaminophen 500 mg tablet 1,000 mg PO BID PRN Pain 0 03/09/15 06/02/25 History albuterol sulfate 90 mcg/actuation 1 puff inhalation Q 4H PRN PRN Sob 12/31/16 06/02/25 History aerosol inhaler &/Or Wheezing buspirone 10 mg tablet 10 mg PO TID 08/27/18 History esomeprazole magnesium 20 mg 40 mg PO DAILY 10/23/18 1 History capsule,delayed release clotrimazole-betamethasone 1 1 applic topical BID 2 we eks #45 07/12/20 06/02/25 Rx %-0.05 % topical cream grams warfarin 1 mg tablet See Rx Instructions PO DAILY 10/27/20 06/02/25 History fluticasone propionate 50 2 spray inhalation DAILY PRN 11/02/21 06/02/25 History mcg/actuation nasal spray,suspension polyethylene glycol 3350 17 17 g PO DAILY PRN 11/02/21 06/02/25 History gram/dose oral powder (Miralax) mirabegron 50 mg tablet,extended 50 mg PO DAILY 06/02/25 History release 24 hr (Myrbetriq) ascorbate calcium (vitamin C) 500 500 mg PO DAILY 09/2006/02/25 History mg tablet calcium amino acid chelate mg PO 03/31/25 06/02/25 His tory cholecalciferol (vitamin D3) 625 625 mcg PO QWEEK 03/2006/02/25 History mcg (25,000 unit) capsule fesoterodine 8 mg tablet,extended 8 mg PO QDAY 5 06/02/25 History release 24 hr mecobalamin (vitamin B12) 1,000 1,000 mcg PO QDAY 03/2006/02/25 History mcg chewable tablet Have you fallen [...] home: Yes additional social history: - Max [facility] Urology Chief Complaint: PTNS treatment Details: SINDY SWEENEY, is a 79 F. She is voiding about 10-12 time during the day and 1-2 times at night. The incontinence is improving. She is going through 5-6 pads a day, but they are dry. She is continuing to work on level [...] bleeding, easy bruising or enlarged lymph nodes Exam Const General: cooperative, healthy appearing, comfortable and no acute distress HENMT Head: normocephalic and atraumatic Ears: hearing grossly normal bilaterally and external ears normal Nose: external nose normal Eyes General: appearance normal, both eyes and all related structures Neck Neck: normal visual inspection and trachea midline Chest Chest palpation & inspection: normal inspection of the chest Resp Effort & Inspection: normal respiratory effort, able to speak in complete sentences and symmetric chest movement Cardio Rate: regular rate GI Inspection: normal to inspection Palpation: soft and nontender General: No CVA tenderness Skin General: no rashes or lesions noted Neuro General: patient alert, patient awake, patient oriented x3 and CN's II-XI intactbilaterally Extrem General: normal to inspection Psych Appearance: grossly normal and well kempt Mental Status: mental status grossly normal Office Procedures PTNS Procedure Completed: Yes PTNS: Percutaneous tibial nerve stimulation (PTNS) was prescribed for overactive bladder symptoms of urinary urgency, frequency and urge incontinence.?The needleelectrode was inserted into the lower, inner aspect of the?right leg.?The surface electrode was placed on the inside arch of the foot on the treatment leg.?The lead set was connected to the stimulator, and the needle electrode clipwas connected to the needle electrode.?The stimulator that produces an adjustable electrical pulse that travels to the sacral nerve plexus via the tibial nerve was adjusted to a setting of 6. The voiding diary or patient's symptoms were reviewed prior the start of treatment.? Coding Level of Care Code No Charge Diagnoses Nocturia R35.1 Urge incontinence N39.41 Assessment and Plan Assessment and Plan (1) Nocturia: Status: Acute (2) Urge incontinence: Status: Acute Orders: Orders PTNS Today N39.41 - Urge incontinence, R35.1 - Nocturia Medications: Discontinued guaifenesin ER (Mucinex) Discontinued Reason: Pt no longer taking 600 mg PO QDAY magnesium Discontinued Reason: Pt no longer taking 30 mg PO DAILY denosumab (Prolia) Discontinued Reason: Pt no longer taking 60 mg subcut [id number] prochlorperazine maleate (Compazine) Discontinued Reason: Pt no longer taking 5 mg PO TID 3 days PRN 10 tabs 0RFheadache Plan continue level one management continue PTNS treatments per protocol continue Myrbetriq and fesoterodine pessary management per [facility] [place] [facility]. Plan Details Follow Up: 1 Month (PTNS) Clinical Quality Measures Falls Risk Screening/Assistive Devices Have you fallen in the past year?: No 06/02/25 2930 <Electronically signed by Kiah Guajardo MD> Date _ Kiah Guajardo MD Cosigner Signature: Date (if applicable) CC: ~ [facility] Work Phone: Reason for referral (narrative)No reason for referral information availableWFayette County Memorial Hospital Work Phone: Summary Purpose Family History Relationship Condition Age at Onset Recorded Date/T dmitri father Malignant neoplasm of lung Unknown Advance Directives Advance Directive Response Recorded Date/ Time Advance Directives No March 09 7:05pm Living Will No July 12 3:07am Power of Manager Of Network No July 12, 2021 3:07am Advance Directive Response Recorded Date/ Time Advance Directives No March 09 7:05pm Living Will No May 01, 2022 11:10pm Power of Manager Of Network No April 11:10pm Advance Directive Response Recorded Date/ Time Advance Directives No March 09 6:05pm Living Will No May 01, 2022 10:10pm Power of Manager Of Network No April 10:10pm Advance Directive Response Recorded Date/ Time Living Will No May 01, 2022 11:10pm Power of Manager Of Network No April 11:10pm Living Will No September 21 8:13am Power of Manager Of Network No September 21, 2024 8:13am Advance Directives No March 09 7:05pm Advance Directive Response Recorded Date/ Time Advance Directives No March 09 7:05pm Advance Directive Response Recorded Date/ Time Do you have a Healthcare Power of Manager Of Network? 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 dizziness dizziness 4M PESSARY CHECK Reason for Visit Cystocele and rectoc [place] with incomplete uterovaginal prolapse 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 3 MO PESSARY CHECK SCREENING/OSTEO 1 WK F/U Reason for Visit Cystocele and rectoc [place] with incomplete uterovaginal prolapse Pessary maintenance Bacterial vaginosis Cystocele and rectocele with incomplete uterovaginal prolapse 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 3 MO PESSARY CHECK SCREENING/OSTEO 1 WK F/U KNEE PAIN Reason for Visit Cystocele and rectoc [place] with incomplete uterovaginal prolapse Pessary maintenance Bacterial vaginosis Cystocele and rectocele with incomplete uterovaginal prolapse 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 3 MO FU Reason for Visit Cystocele and rectoc [place] with incomplete uterovaginal prolapse 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 pessary fu Reason for Visit Cystocele [...] 10:25am Urge incontinence April 28, 2025 10:25am Chief Complaint Admit Date Pessary Check February 24, 2025 10:13 am INR- DRAW SUNDAY AND REPEAT THURSDAY February 27, 2025 11:11am INR- March 02, 2025 10:1 3am monthly PTNS March 31, 2025 12 :52pm ptns April 28, 2025 10:25am n/v/d May 23, 2025 6: 20pm Chief Complaint Admit Date Pessary Check February 24, 2025 10:13 am INR- DRAW SUNDAY AND REPEAT THURSDAY February 27, 2025 11:11am INR- March 02, 2025 10:1 3am monthly PTNS March 31, 2025 12 :52pm ptns April 28, 2025 10:25am n/v/d May 23, 2025 6: 20pm Pessary Check June 02, 2025 9 :38am ptns June 02, 2025 1 0:47am Reason for Visit Admit Date Cystocele and rectocele with incomplete uterovaginal prolapse February 24, 2025 10:13am Pessary maintenance February 24, 2025 10:13 am Nocturia March 31, 2025 12 :52pm Urge incontinence March 31, 2025 12 :52pm Nocturia April 28, 2025 10:25am Urge incontinence April 28, 2025 10:25am Cystocele and rectocele with incomplete uterovaginal prolapse June 02, 2025 9:38am Pessary maintenance June 02, 2025 9 :38am Incontinence June 02, 2025 9 :38am Nocturia June 02, 2025 1 0:47am Urge incontinence June 02, 2025 1 0:47am Additional Source Comments INFORMATION SOURCE (unrecogn ized section and content) DATE CREATED AUTHOR 02/12/2018 [facility] DATE CREATED AUTHOR AUTHOR'S ORGANIZ ATION 06/11/2024 [facility] DATE CREATED AUTHOR AUTHOR'S ORGANIZ ATION 06/03/2025 [facility] Goals (unrecognized section and content) Goals may [...] Inactive Member Role Status Dates Dr. True Vaqzuez MD Primary Care Provider, Refe rring Provider Active Lindsay Rahman MANAGER SALES, MANAGER SALES-C Attending Provider Active Team Status: Inactive Member [...] 2024 End: July 29, 2024 Lindsay Rahman MANAGER SALES, MANAGER SALES-C Attending Provider Active Start: July 29, 2024 [...] 2024 End: December 02, 2024 Lindsay Rahman MANAGER SALES, MANAGER SALES-C Attending Provider Active Start: December 02, 2024 End: December 02, 2024 Team Status: Inactive Member Role/Relationship Status Dates Dr. Litzy Vazquez MD Primary Care Provider Acti ve Start: February 24, 2025 End: February 24, 2025 Dr. Litzy Vazquez MD Referring Provider Active Start: February 24, 2025 End: February 24, 2025 Lindsay Rahman MANAGER SALES, MANAGER SALES-C Attending Provider Active Start: February 24, 2025 [...] End: February 24, 2025 Lindsay Rahman NP, MANAGER SALES-C Attending Provider Active Start: February 24, 2025 [...] Status: Inactive Member Role/Relationship Status Dates Dr. Lizty Vazquez MD Primary Care Provider Acti ve [...] Status: Inactive Member Role/Relationship Status Dates Dr. Lityz Vazquez MD Primary Care Provider Acti ve [...] Litzy Vazquez MD Primary care physician Act jakcie Team Status: Inactive Member Role/Relationship Status Dates [...] 2025 End: February 24, 2025 Lindsay Rahman MANAGER SALES, MANAGER SALES-C Attending physician Active Start: February 24, 2025 [...] May 05, 2025 End: May 05, 2025 Team Status: Inactive Member Role/Relationship Status Dates Dr. Litzy Vazquez MD Primary care physician Act jackie Start: May 23, 2025 End: May 23, 2025 Dr. Carloz Lerma DO Emergency Departm ent Physician Active Start: May 23, 2025 End: May 23, 2025 Team Status: Inactive Member Role/Relationship Status Dates Dr. Litzy Vazquez MD Primary care physician Act jackie Start: May 23, 2025 End: May 23, 2025 Dr. Carloz Lerma DO Attending physician Active Start: May 23, 2025 End: May 23, 2025 Dr. Carloz Lerma DO Emergency Departm ent Physician Active Start: May 23, 2025 End: May 23, 2025 Team Status: Inactive Member Role/Relationship Status Dates Dr. Litzy Vazquez MD Primary care physician Act jackie Start: June 02, 2025 End: June 02, 2025 Dr. Litzy Vazquez MD Referring Provider Active Start: June 02, 2025 End: June 02, 2025 Lindsay Rahman MANAGER SALES, MANAGER SALES-C Attending physician Active Start: June 02, 2025 End: June 02, 2025 Team Status: Inactive Member Role/Relationship Status Dates Dr. Litzy Vazquez MD Primary care physician Act jackie Start: June 02, 2025 End: June 02, 2025 Dr. Litzy Vazquez MD Referring Provider Active Start: June 02, 2025 End: June 02, 2025 Dr. Kiah Guajardo MD Attending physician Active Start: June 02, 2025 End: June 02, 2025 FOR RECORDS PERTAINING TO PATIENTS WHO [...] BE BASED ON THE PRIMARY CLINICAL RECORDS. [employer] provides no warranty or guarantee of the accuracy or completeness of information in this document.
[2025-06-30 15:09] LABS: Hematocrit 39.1 % (37-47); Hemoglobin 12.7 g/dL (12.0-15.0); Mean Corp Hgb Conc 32.5 g/dL (32-36); Mean Corpuscular Volume 94.7 fL (81-99); Mean Platelet Vol. 9.4 fl (6.2-12.0); Platelet Count 219 K/mm3 (150-450); RBC Distribution Width CV 16.8 % (11.6-14.6); RBC Distribution Width SD 58.6 fl (35.1-43.9); Red Blood Count 4.13 M/mm3 (4.2-5.4); White Blood Count 7.3 K/mm3 (4.4-11.0)
[2025-06-30 15:44] LABS: Ferritin 45 ng/mL (22-378); Iron 44 ug/dL (50-170)
== END | disposition home or self-care (01) ==
LOC: MTLAB 11:04
PROVIDERS: PCP Family Medicine; Referring Provider Family Medicine; Visit Provider Family Medicine
DX: D64.9 Anemia, unspecified (principal)
CPT/HCPCS: 36415; 82728; 83540; 85027